=== PATIENT | male | born 1955 | race Caucasian/White ===

== ENCOUNTER 2016-11-30 18:08 | Emergency (ER) | payer BC, MEDICARE ==
--- NOTE | 2016-11-30 18:55 | ED ---
General Adult HPI - General Chief complaint: Urogenital Stated complaint: HEMATURIA Time Seen by Provider: 11/30/16 18:15 Source: patient, RN notes reviewed Mode of arrival: ambulatory Limitations: no limitations - History of Present Illness Initial comments: This is a 61-year-old male who presents to the emergency department stating that he had one episode of hematuria which started off as bright red blood ventricle down to pinkish tinged urine. Patient states he had no pain with that he's had no symptoms in the past with that he denies any abdominal pain flank pain or back pain. Patient denies any fever or chills. She says about 5 days ago he did fall backwards on the concrete and landed on his back. Patient states it hurt at the time but it resolved and he has had no problems since. Patient states there is no swelling or redness about the penis there is no pain with urination. And he denies any problems with his scrotum or testicles. Patient states he is a smoker. - Related Data Home Medications Medication Instructions Recorded Confirmed Aspirin 325 mg PO AC-SUPPER 11/24/15 11/30/16 HYDROcodone/APAP 10-325MG [[place] 1 tab PO Q6H PRN 11/24/15 11/30/16 10-325] Insulin NPL/Insulin Lispro 50 unit SQ BID 11/24/15 11/30/16 [humaLOG Mix 75-25 Kwikpen] Lisinopril [Zestril] 20 mg PO BID 11/24/15 11/30/16 Pramlintide Acetate [Symlin Pen 120 mcg SQ AC-SUPPER 11/24/15 11/30/16 120] Simvastatin [Zocor] 40 mg PO HS 11/24/15 11/30/16 Zolpidem [Ambien] 5 mg PO HS PRN 11/24/15 11/30/16 Tadalafil [Cialis] 5 mg PO DAILY PRN 11/30/16 11/30/16 Allergies Allergy/AdvReac Type Severity Reaction Status Date / Time blue dye Allergy Severe Rash/Hives Verified 11/30/16 19:25 naproxen sodium [From Aleve] Allergy Rash/Hives Verified 11/30/16 19:25 naloxegol [From Movantik] AdvReac Nausea & Verified 11/30/16 19:25 Vomiting Review of Systems ROS Statement: Those systems with pertinent positive or pertinent negative responses have been documented in the HPI. ROS Other: All systems not noted in ROS Statement are negative. Past Medical History Additional Past Medical History / Comment(s): TIA. KIDNEY STONE. ABD CRAMPS OCC R/T IBS, DIVERTICULITIS. POSS LT ABD HERNIA. History of Any Multi-Drug Resistant Organisms: None Reported Additional Past Surgical History / Comment(s): LEFT KNEE, ARTHROSCOPIC. SHUNT [id number] R/T PRESSURE IN SKULL. Past Psychological History: Anxiety Smoking Status: Current every day smoker Past Alcohol Use History: None Reported Additional Past Alcohol Use History / Comment(s): STARTED SMOKING AT AGE 15/ SMOKES 1PPD; PLANS TO TRY CHANTIX AFTER PROCEDURE. Past Drug Use History: None Reported General Exam - General Exam Comments Initial Comments: GENERAL: Patient is well-developed and well-nourished. Patient is nontoxic and well- hydrated and is in no acute distress. ENT: Neck is soft and supple. No significant lymphadenopathy is noted. Oropharynx is clear. Moist mucous membranes. EYES: The sclera were anicteric and conjunctiva were pink and moist. Extraocular movements were intact and pupils were equal round and reactive to light. Eyelids were unremarkable. PULMONARY: Unlabored respirations. Good breath sounds bilaterally. No audible rales rhonchi or wheezing was noted. CARDIOVASCULAR: There is a regular rate and rhythm without any murmurs gallops or rubs. ABDOMEN: Soft and nontender with normal bowel sounds. SKIN: Skin is clear with no lesions or rashes and otherwise unremarkable. NEUROLOGIC: Patient is alert and oriented x3. Cranial nerves II through XII are grossly intact. Motor and sensory are also intact. Normal speech, volume and content. Symmetrical smile. MUSCULOSKELETAL: Normal extremities with adequate strength and full range of motion. No lower extremity swelling or edema. No calf tenderness. Limitations: no limitations Course Vital Signs 11/30/16 11/30/16 18:13 19:48 Temperature 98.3 F Pulse Rate 110 H 99 Respiratory 20 18 Rate Blood Pressure 187/92 163/79 O2 Sat by Pulse 96 97 Oximetry Medical Decision Making - Medical Decision Making Ultrasound showed no renal masses identified no obvious masses in the bladder. - Lab Data Result diagrams: 11/30/16 18:55 11/30/16 18:55 Lab Results 11/30/16 11/30/16 11/30/16 Range/Units 18:55 18:55 18:55 WBC 12.3 H (3.8-10.6) k/uL RBC 5.62 (4.30-5.90) m/uL Hgb 17.9 H (13.0-17.5) gm/dL Hct 53.4 H (39.0-53.0) % MCV 94.9 (80.0-100.0) fL MCH 31.9 (25.0-35.0) pg MCHC 33.6 (31.0-37.0) g/dL RDW 12.9 (11.5-15.5) % Plt Count 251 (150-450) k/uL Neutrophils % 74 % Lymphocytes % 15 % Monocytes % 6 % Eosinophils % 2 % Basophils % 1 % Neutrophils # 9.0 H (1.3-7.7) k/uL Lymphocytes # 1.9 (1.0-4.8) k/uL Monocytes # 0.8 (0-1.0) k/uL Eosinophils # 0.3 (0-0.7) k/uL Basophils # 0.1 (0-0.2) k/uL PT 12.2 H (9.0-12.0) sec INR 1.2 (<1.1) APTT 25.9 (22.0-30.0) sec Sodium 142 (137-145) mmol/L Potassium 4.7 (3.5-5.1) mmol/L Chloride 105 (98-107) mmol/L Carbon Dioxide 26 (22-30) mmol/L Anion Gap 11 mmol/L BUN 19 (9-20) mg/dL Creatinine 0.95 (0.66-1.25) mg/dL Est GFR (MDRD) Af Amer >60 (>60 ml/min/1.73 sqM) Est GFR (MDRD) Non-Af >60 (>60 ml/min/1.73 sqM) Glucose 196 H (74-99) mg/dL Calcium 9.4 (8.4-10.2) mg/dL Total Bilirubin 0.8 (0.2-1.3) mg/dL AST 24 (17-59) U/L ALT 34 (21-72) U/L Alkaline Phosphatase 89 (38-126) U/L Total Protein 7.2 (6.3-8.2) g/dL Albumin 4.4 (3.5-5.0) g/dL Urine Color Urine Appearance (Clear) Urine RBC (0-5) /hpf Urine WBC (0-5) /hpf // Range/Units 19:07 WBC (3.8-10.6) k/uL RBC (4.30-5.90) m/uL Hgb (13.0-17.5) gm/dL Hct (39.0-53.0) % MCV (80.0-100.0) fL MCH (25.0-35.0) pg MCHC (31.0-37.0) g/dL RDW (11.5-15.5) % Plt Count (150-450) k/uL Neutrophils % % Lymphocytes % % Monocytes % % Eosinophils % % Basophils % % Neutrophils # (1.3-7.7) k/uL Lymphocytes # (1.0-4.8) k/uL Monocytes # (0-1.0) k/uL Eosinophils # (0-0.7) k/uL Basophils # (0-0.2) k/uL PT (9.0-12.0) sec INR (<1.1) APTT (22.0-30.0) sec Sodium (137-145) mmol/L Potassium (3.5-5.1) mmol/L Chloride (98-107) mmol/L Carbon Dioxide (22-30) mmol/L Anion Gap mmol/L BUN (9-20) mg/dL Creatinine (0.66-1.25) mg/dL Est GFR (MDRD) Af Amer (>60 ml/min/1.73 sqM) Est GFR (MDRD) Non-Af (>60 ml/min/1.73 sqM) Glucose (74-99) mg/dL Calcium (8.4-10.2) mg/dL Total Bilirubin (0.2-1.3) mg/dL AST (17-59) U/L ALT (21-72) U/L Alkaline Phosphatase (38-126) U/L Total Protein (6.3-8.2) g/dL Albumin (3.5-5.0) g/dL Urine Color Red Urine Appearance Bloody (Clear) Urine RBC >182 H (0-5) /hpf Urine WBC 80 H (0-5) /hpf Disposition Clinical Impression: Hematuria Disposition: HOME SELF-CARE Condition: Good Instructions: Hematuria (ED) Referrals: Dru Colby MD [Primary Care Provider] - 1-2 days Kem Beal MD [STAFF PHYSICIAN] - 1-2 days Time of Disposition: 21:43
[2016-11-30 19:14] LABS: Basophils # (A) 0.1 k/uL (0-0.2); Basophils % (A) 1 %; CHCM 33.9; Eosinophils # (A) 0.3 k/uL (0-0.7); Eosinophils % (A) 2 %; HCT 53.4 % (39.0-53.0); HGB 17.9 gm/dL (13.0-17.5); Luc # (Auto) 0.23; Luc % (Auto) 2; Lymphocytes # (A) 1.9 k/uL (1.0-4.8); Lymphocytes % (A) 15 %; MCH 31.9 pg (25.0-35.0); MCHC 33.6 g/dL (31.0-37.0); MCV 94.9 fL (80.0-100.0); Mean Platelet Volume 6.6; Monocytes # (A) 0.8 k/uL (0-1.0); Monocytes % (A) 6 %; Neutrophils % (A) 74 %; RBC 5.62 m/uL (4.30-5.90); RDW 12.9 % (11.5-15.5); WBC 12.3 k/uL (3.8-10.6); WBC (Perox) 12.01
[2016-11-30 19:16] LABS: ALT 34 U/L (21-72); AST 24 U/L (17-59); Alkaline Phosphatase 89 U/L (38-126); Anion Gap 11 mmol/L; Blood Urea Nitrogen 19 mg/dL (9-20); Calcium 9.4 mg/dL (8.4-10.2); Carbon Dioxide 26 mmol/L (22-30); Chloride 105 mmol/L (98-107); Glucose 196 mg/dL (74-99); Non-African American GFR(MDRD) >60 (>60 ml/min/1.73 sqM); Potassium 4.7 mmol/L (3.5-5.1); Sodium 142 mmol/L (137-145); Total Bilirubin 0.8 mg/dL (0.2-1.3); Total Protein 7.2 g/dL (6.3-8.2)
[2016-11-30 19:22] LABS: Particle Count 117385; RBC,Urine >182 /hpf (0-5); WBC,Urine 80 /hpf (0-5)
[2016-11-30 19:23] LABS: Appearance,Urine Bloody (Clear)
[2016-11-30 19:38] LABS: INR 1.2 (<1.1); Partial Thromboplastin Time 25.9 sec (22.0-30.0); Prothrombin Time 12.2 sec (9.0-12.0)
[2016-11-30 19:50] LABS: UA Billing (MACRO vs. MICRO) MICRO
[2016-11-30 19:51] VITALS: RESP 18
[2016-11-30] MEDS ORDERED: HYDROcodone/APAP 5-325MG 1 EACH TAB PO STA (20:50)
--- NOTE | 2016-11-30 21:23 | US ---
EXAMINATION TYPE: US renals and bladder DATE OF EXAM: 11/30/2016 9:11 PM COMPARISON: NONE CLINICAL HISTORY: Pain. Hematuria, bilateral flank pain, history of kidney stones EXAM MEASUREMENTS: Right Kidney: 10.6 x 5.7 x 4.8 cm Left Kidney: 11.0 x 6.0 x 4.9 cm Right Kidney: cystic areas noted, laterally = 4.4 x 4.1 x 4.6cm and upper pole = 1.5 x 1.2 x 1.5cm Left Kidney: no evidence of hydronephrosis Bladder: appears wnl Bilateral Jets seen: yes There is no evidence for hydronephrosis at this point in time. No nephrolithiasis is seen. No jamshid s are identified. The urinary bladder is anechoic. Bilateral ureteral jets are seen. IMPRESSION: No evidence of a solid renal mass. Right renal cortical cysts are noted. No evidence of renal obstruc tion.
[2016-11-30 22:11] VITALS: BP 168/99; PULSE 92; TEMP 98.7
== END 2016-11-30 22:11 | disposition home or self-care (01) ==
LOC: EC 18:08
DX: R31.9 Hematuria, unspecified (principal); Z87.442 Personal history of urinary calculi; Z86.73 Personal history of transient ischemic attack (TIA), and cerebral infarction without residual deficits; Z91.81 History of falling; F17.200 Nicotine dependence, unspecified, uncomplicated; Z79.899 Other long term (current) drug therapy; Z79.4 Long term (current) use of insulin; Z79.82 Long term (current) use of aspirin; Z88.8 Allergy status to other drugs, medicaments and biological substances; Z88.6 Allergy status to analgesic agent
CPT/HCPCS: 36415; 76770; 80053; 81001; 85025; 85610; 85730; 99284

== ENCOUNTER 2017-01-16 15:19 | Observation (INO) | payer BC, MEDICARE ==
[2017-01-16] MEDS ORDERED: ASPIRIN 81 MG CHEW PO STA (15:39)
[2017-01-16] MEDS ORDERED: NITROGLYCERIN OINT 1 INCH/GM PACKET TOPICAL STA (15:39)
--- NOTE | 2017-01-16 15:43 | ED ---
General Adult HPI - General Chief complaint: Chest Pain Stated complaint: Chest Pain Time Seen by Provider: 01/16/17 15:20 Source: patient, RN notes reviewed Mode of arrival: wheelchair Limitations: no limitations - History of Present Illness Initial comments: This is a 61-year-old male with a past medical history significant for diabetes hypertension high cholesterol and smokes. Patient states he has a father with heart disease. Patient comes in today because he's been experiencing intermittent chest pain for the last 5 days. Patient states he is also very short of breath and very fatigued over the last 5 days. Patient denies any recent fever chills or cough. Patient states that the coughing seems to increase the chest pain and pressing on it causes a little bit of the same chest pain. Patient denies any headache patient denies numbness weakness. Patient denies any abdominal pain patient denies nausea vomiting or diarrhea. - Related Data Home Medications Medication Instructions Recorded Confirmed Aspirin 325 mg PO AC-SUPPER 11/24/15 01/16/17 HYDROcodone/APAP 10-325MG [[place] 1 tab PO Q6H PRN 11/24/15 01/16/17 10-325] Insulin Lispro Protamin/Lispro 50 unit SQ BID 11/24/15 01/16/17 [humaLOG Mix 75-25 Kwikpen] Lisinopril [Zestril] 20 mg PO BID 11/24/15 01/16/17 Pramlintide Acetate [Symlin Pen 120 mcg SQ AC-SUPPER 11/24/15 01/16/17 120] Simvastatin [Zocor] 40 mg PO HS 11/24/15 01/16/17 Zolpidem [Ambien] 5 mg PO HS PRN 11/24/15 01/16/17 Allergies Allergy/AdvReac Type Severity Reaction Status Date / Time blue dye Allergy Severe Rash/Hives Verified 01/16/17 16:14 naproxen sodium [From Aleve] Allergy Rash/Hives Verified 01/16/17 16:14 naloxegol [From Movantik] AdvReac Nausea & Verified 01/16/17 16:14 Vomiting Review of Systems ROS Statement: Those systems with pertinent positive or pertinent negative responses have been documented in the HPI. ROS Other: All systems not noted in ROS Statement are negative. Past Medical History Past Medical History: CVA/TIA, Diabetes Mellitus Additional Past Medical History / Comment(s): TIA. KIDNEY STONE. ABD CRAMPS OCC R/T IBS, DIVERTICULITIS. POSS LT ABD HERNIA. History of Any Multi-Drug Resistant Organisms: None Reported Past Surgical History: Orthopedic Surgery Additional Past Surgical History / Comment(s): LEFT KNEE, ARTHROSCOPIC. SHUNT [id number] R/T PRESSURE IN SKULL. lt hand amputation Past Psychological History: Anxiety Smoking Status: Current every day smoker Past Alcohol Use History: None Reported Additional Past Alcohol Use History / Comment(s): STARTED SMOKING AT AGE 15/ SMOKES 1PPD; PLANS TO TRY CHANTIX AFTER PROCEDURE. Past Drug Use History: Marijuana General Exam - General Exam Comments Initial Comments: GENERAL: Patient is well-developed and well-nourished. Patient is nontoxic and well- hydrated and is in mild distress. ENT: Neck is soft and supple. No significant lymphadenopathy is noted. Oropharynx is clear. Moist mucous membranes. Neck has full range of motion without eliciting any pain. EYES: The sclera were anicteric and conjunctiva were pink and moist. Extraocular movements were intact and pupils were equal round and reactive to light. Eyelids were unremarkable. PULMONARY: Unlabored respirations. Good breath sounds bilaterally. No audible rales rhonchi or wheezing was noted. CARDIOVASCULAR: There is a regular rate and rhythm without any murmurs gallops or rubs. Patient has some reproducible chest pain in the left anterior chest wall but he states it's not exactly the same pain she has been experiencing. ABDOMEN: Soft and nontender with normal bowel sounds. No palpable organomegaly was noted. There is no palpable pulsatile mass. SKIN: Skin is clear with no lesions or rashes and otherwise unremarkable. NEUROLOGIC: Patient is alert and oriented x3. Cranial nerves II through XII are grossly intact. Motor and sensory are also intact. Normal speech, volume and content. Symmetrical smile. MUSCULOSKELETAL: Patient has an amputated left forearm. Normal extremities with adequate strength and full range of motion. No lower extremity swelling or edema. No calf tenderness. LYMPHATICS: No significant lymphadenopathy is noted PSYCHIATRIC: Normal psychiatric evaluation. Normal interpersonal interactions appears functionally intact in deals appropriately with others. No signs of depression. No signs of anxiety. Limitations: no limitations Course Vital Signs 01/16/17 01/16/17 01/16/17 15:21 15:39 16:27 Temperature 98.9 F Pulse Rate 100 98 93 Respiratory 20 18 8 L Rate Blood Pressure 197/97 201/100 150/82 O2 Sat by Pulse 96 97 93 L Oximetry Medical Decision Making - Medical Decision Making EKG shows normal sinus rhythm at 95 bpm LA interval 172 QRS is 80 QT interval 350 QTC is 439. Patient's EKG shows no ST segment elevation or depression or T- wave abdomen is noted. Chest x-ray shows no acute abnormality. Patient states the chest pain felt better with the nitroglycerin paste - Lab Data Result diagrams: 01/16/17 15:35 01/16/17 15:35 Lab Results 01/16/17 01/16/17 01/16/17 Range/Units 15:35 15:35 15:35 WBC 14.0 H (3.8-10.6) k/uL RBC 5.74 (4.30-5.90) m/uL Hgb 18.0 H (13.0-17.5) gm/dL Hct 54.4 H (39.0-53.0) % MCV 94.7 (80.0-100.0) fL MCH 31.4 (25.0-35.0) pg MCHC 33.2 (31.0-37.0) g/dL RDW 13.1 (11.5-15.5) % Plt Count 241 (150-450) k/uL Neutrophils % 78 % Lymphocytes % 14 % Monocytes % 5 % Eosinophils % 1 % Basophils % 1 % Neutrophils # 10.9 H (1.3-7.7) k/uL Lymphocytes # 1.9 (1.0-4.8) k/uL Monocytes # 0.7 (0-1.0) k/uL Eosinophils # 0.2 (0-0.7) k/uL Basophils # 0.1 (0-0.2) k/uL PT (9.0-12.0) sec INR (<1.1) APTT (22.0-30.0) sec Sodium 141 (137-145) mmol/L Potassium 4.6 (3.5-5.1) mmol/L Chloride 107 (98-107) mmol/L Carbon Dioxide 21 L (22-30) mmol/L Anion Gap 13 mmol/L BUN 16 (9-20) mg/dL Creatinine 0.90 (0.66-1.25) mg/dL Est GFR (MDRD) Af Amer >60 (>60 ml/min/1.73 sqM) Est GFR (MDRD) Non-Af >60 (>60 ml/min/1.73 sqM) Glucose 231 H (74-99) mg/dL Calcium 9.7 (8.4-10.2) mg/dL Magnesium 1.8 (1.6-2.3) mg/dL Total Bilirubin 1.0 (0.2-1.3) mg/dL AST 15 L (17-59) U/L ALT 32 (21-72) U/L Alkaline Phosphatase 92 (38-126) U/L Total Creatine Kinase 58 (55-170) U/L CK-MB (CK-2) 1.9 (0.0-2.4) ng/mL CK-MB (CK-2) Rel Index 3.3 Troponin I <0.012 (0.000-0.034) ng/mL Total Protein 7.0 (6.3-8.2) g/dL Albumin 4.4 (3.5-5.0) g/dL 01/16/17 Range/Units 15:35 WBC (3.8-10.6) k/uL RBC (4.30-5.90) m/uL Hgb (13.0-17.5) gm/dL Hct (39.0-53.0) % MCV (80.0-100.0) fL MCH (25.0-35.0) pg MCHC (31.0-37.0) g/dL RDW (11.5-15.5) % Plt Count (150-450) k/uL Neutrophils % % Lymphocytes % % Monocytes % % Eosinophils % % Basophils % % Neutrophils # (1.3-7.7) k/uL Lymphocytes # (1.0-4.8) k/uL Monocytes # (0-1.0) k/uL Eosinophils # (0-0.7) k/uL Basophils # (0-0.2) k/uL PT 13.2 H (9.0-12.0) sec INR 1.3 (<1.1) APTT 26.6 (22.0-30.0) sec Sodium (137-145) mmol/L Potassium (3.5-5.1) mmol/L Chloride (98-107) mmol/L Carbon Dioxide (22-30) mmol/L Anion Gap mmol/L BUN (9-20) mg/dL Creatinine (0.66-1.25) mg/dL Est GFR (MDRD) Af Amer (>60 ml/min/1.73 sqM) Est GFR (MDRD) Non-Af (>60 ml/min/1.73 sqM) Glucose (74-99) mg/dL Calcium (8.4-10.2) mg/dL Magnesium (1.6-2.3) mg/dL Total Bilirubin (0.2-1.3) mg/dL AST (17-59) U/L ALT (21-72) U/L Alkaline Phosphatase (38-126) U/L Total Creatine Kinase (55-170) U/L CK-MB (CK-2) (0.0-2.4) ng/mL CK-MB (CK-2) Rel Index Troponin I (0.000-0.034) ng/mL Total Protein (6.3-8.2) g/dL Albumin (3.5-5.0) g/dL Disposition Clinical Impression: Chest pain Disposition: ADMITTED IP TO THIS HOSP Referrals: Dru Colby MD [Primary Care Provider] - 1-2 days Time of Disposition: 16:44
[2017-01-16 15:59] LABS: Basophils # (A) 0.1 k/uL (0-0.2); Basophils % (A) 1 %; CH 31.5; CHCM 33.4; Eosinophils # (A) 0.2 k/uL (0-0.7); Eosinophils % (A) 1 %; HCT 54.4 % (39.0-53.0); HDW 2.34; Luc % (Auto) 1; Lymphocytes # (A) 1.9 k/uL (1.0-4.8); Lymphocytes % (A) 14 %; MCH 31.4 pg (25.0-35.0); MCHC 33.2 g/dL (31.0-37.0); MCV 94.7 fL (80.0-100.0); Mean Platelet Volume 6.9; Monocytes # (A) 0.7 k/uL (0-1.0); Monocytes % (A) 5 %; Neutrophils # (A) 10.9 k/uL (1.3-7.7); Neutrophils % (A) 78 %; RBC 5.74 m/uL (4.30-5.90); RDW 13.1 % (11.5-15.5); WBC (Perox) 13.02
--- NOTE | 2017-01-16 16:06 | XR ---
EXAMINATION TYPE: XR chest 2V DATE OF EXAM: 01/16/2017 COMPARISON: NONE INDICATION: Chest pain TECHNIQUE: Frontal and lateral views of the chest are obtained. FINDINGS: The heart size is normal. The pulmonary vasculature is normal. The lungs are clear. Catheter transverses the [id number]. EKG leads overlie the chest. Nonspecifi c bowel gas is within the abdomen. IMPRESSION: 1. No acute pulmonary process.
[2017-01-16 16:13] LABS: INR 1.3 (<1.1); Partial Thromboplastin Time 26.6 sec (22.0-30.0); Prothrombin Time 13.2 sec (9.0-12.0)
[2017-01-16 16:17] LABS: ALT 32 U/L (21-72); AST 15 U/L (17-59); Alkaline Phosphatase 92 U/L (38-126); Anion Gap 13 mmol/L; Blood Urea Nitrogen 16 mg/dL (9-20); Calcium 9.7 mg/dL (8.4-10.2); Carbon Dioxide 21 mmol/L (22-30); Chloride 107 mmol/L (98-107); Creatine Kinase 58 U/L (55-170); Glucose 231 mg/dL (74-99); Magnesium 1.8 mg/dL (1.6-2.3); Non-African American GFR(MDRD) >60 (>60 ml/min/1.73 sqM); Potassium 4.6 mmol/L (3.5-5.1); Sodium 141 mmol/L (137-145)
[2017-01-16 16:29] LABS: Creatine Kinase MB 1.9 ng/mL (0.0-2.4); Troponin I <0.012 ng/mL (0.000-0.034)
[2017-01-16] MEDS ORDERED: NITROGLYCERIN SL TABS 0.4 MG TAB SUBLINGUAL PRN (16:44)
[2017-01-16] MEDS ORDERED: ZOLPIDEM 5 MG TAB PO PRN (18:54)
[2017-01-16 20:11] VITALS: BMI 33.1
[2017-01-16 20:43] LABS: Glucose,Whole Blood 274 mg/dL (75-99)
[2017-01-16] MEDS ORDERED: ACETAMINOPHEN TAB 325 MG TAB PO PRN (20:58)
[2017-01-16] MEDS ORDERED: ATORVASTATIN 20 MG TAB PO SCH (21:00)
[2017-01-16] MEDS: LISINOPRIL 20 MG TAB PO SCH (21:02)
[2017-01-16] MEDS: INSULIN LISPRO (humaLOG) 300 UNIT/3 ML VIAL SQ SCH (21:03)
[2017-01-16 22:08] LABS: Creatine Kinase 55 U/L (55-170)
[2017-01-16 22:22] LABS: Creatine Kinase MB 1.3 ng/mL (0.0-2.4); Troponin I <0.012 ng/mL (0.000-0.034)
[2017-01-16] MEDS: HYDROcodone/APAP 10-325MG 1 EACH TAB PO PRN (22:44)
[2017-01-16 23:32] VITALS: RESP 18
[2017-01-17] MEDS: NITROGLYCERIN OINT 1 INCH/GM PACKET TOPICAL SCH ×3 (00:23→12:48)
[2017-01-17 05:17] LABS: Basophils # (A) 0.1 k/uL (0-0.2); Basophils % (A) 1 %; CH 31.4; CHCM 33.5; Eosinophils # (A) 0.4 k/uL (0-0.7); Eosinophils % (A) 3 %; HCT 53.2 % (39.0-53.0); HDW 2.33; HGB 17.7 gm/dL (13.0-17.5); Luc % (Auto) 2; Lymphocytes # (A) 2.6 k/uL (1.0-4.8); Lymphocytes % (A) 24 %; MCH 31.2 pg (25.0-35.0); MCHC 33.3 g/dL (31.0-37.0); MCV 93.9 fL (80.0-100.0); Mean Platelet Volume 6.8; Monocytes # (A) 0.7 k/uL (0-1.0); Monocytes % (A) 6 %; Neutrophils % (A) 64 %; RBC 5.66 m/uL (4.30-5.90); RDW 13.2 % (11.5-15.5); WBC 11.1 k/uL (3.8-10.6); WBC (Perox) 10.35
[2017-01-17 05:34] LABS: Anion Gap 9 mmol/L; Blood Urea Nitrogen 16 mg/dL (9-20); Calcium 9.3 mg/dL (8.4-10.2); Carbon Dioxide 22 mmol/L (22-30); Chloride 106 mmol/L (98-107); Cholesterol 123 mg/dL (<200); Glucose 227 mg/dL (74-99); HDL Cholesterol 40 mg/dL (40-60); Non-African American GFR(MDRD) >60 (>60 ml/min/1.73 sqM); Potassium 4.6 mmol/L (3.5-5.1); Sodium 137 mmol/L (137-145); Triglycerides 113 mg/dL (<150)
[2017-01-17 05:37] LABS: Creatine Kinase 67 U/L (55-170)
[2017-01-17 05:50] LABS: Creatine Kinase MB 1.5 ng/mL (0.0-2.4); Troponin I <0.012 ng/mL (0.000-0.034)
[2017-01-17 06:57] LABS: Glucose,Whole Blood 209 mg/dL (75-99)
[2017-01-17] MEDS ORDERED: DOBUTamine DRIP for NUC MED 500 MG in DEXTROSE/WATER 1 250ML.BAG IV ONE (08:00)
--- NOTE | 2017-01-17 08:47 | CONS ---
DATE OF CONSULTATION: CHIEF COMPLAINT: Chest pain. Basil is a 61-year-old gentleman with history of hypertension and insulin-requiring diabetes who presented to the hospital complaining of chest pain. He describes it as a precordial chest discomfort, unrelated to exertion and not associated with diaphoresis with no definite radiation to neck, arm or back. 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 At the time of my evaluation, he is pain free. EKG does not reveal ischemic changes and cardiac enzymes have been negative. Past medical history is significant for insulin-requiring diabetes, hypertension, dyslipidemia. Current medications include Ambien, Zocor, Zestril, insulin, [place] and aspirin. Allergic to BLUE DYE, ALEVE, and MOVANTIK. Family history is negative for premature coronary artery disease. Social history is significant for smoking. There is no history of EtOH abuse, or drug abuse. REVIEW OF SYSTEMS: HEENT: Unremarkable. CARDIAC: As described above. RESPIRATORY: Negative. GI: Negative. GENITOURINARY: Negative. ALLERGY/IMMUNOLOGY: Negative. SKIN: Negative. MUSCULOSKELETAL: Significant for joint pain. PSYCHOSOCIAL: Negative. ENDOCRINE: Negative. HEMATOLOGIC: Negative. DERMATOLOGIC: Negative. CONSTITUTIONAL: Negative. On exam, comfortable at rest. Blood pressure is elevated. There is no jugular venous distention. Carotid upstroke is normal. There is no bruit. Chest is clear to auscultation and percussion. Heart exam reveals first and second heart sounds, an S4 is heard. Abdomen is soft. Exam of the extremities did not reveal any edema. Peripheral pulses are felt. ASSESSMENT: 1. Chest pain, rule out coronary artery disease. 2. Uncontrolled hypertension. PLAN: I am going to perform a stress test on him and if the stress test is abnormal, consider cardiac catheterization. His blood pressure is poorly controlled. I am adding Norvasc 10 mg daily and hydralazine.
[2017-01-17] MEDS ORDERED: amLODIPine 10 MG TAB PO SCH (09:00)
[2017-01-17] MEDS ORDERED: hydrALAZINE HCL 50 MG TAB PO SCH (09:00)
[2017-01-17] MEDS ORDERED: ASPIRIN 325 MG TAB PO SCH (09:00)
[2017-01-17] MEDS: INSULIN LISPRO (humaLOG) 300 UNIT/3 ML VIAL SQ SCH ×2 (09:07→12:40)
[2017-01-17 09:23] LABS: Hemoglobin A1C 8.7 % (4.2-6.1)
--- NOTE | 2017-01-17 09:53 | ECHOF ---
Referral Reason:cp MEASUREMENTS -------- HEIGHT: 170.2 cm WEIGHT: 95.7 kg BP: 176/100 RVIDd: 3.3 cm (< 3.3) IVSd: 1.3 cm (0.6 - 1.1) LVIDd: 4.2 cm (3.9 - 5.3) LVPWd: 1.2 cm (0.6 - 1.1) IVSs: 1.9 cm LVIDs: 2.8 cm LVPWs: 1.5 cm LA Diam: 3.7 cm (2.7 - 3.8) LAESV Index (A-L): 16.15 ml/m Ao Diam: 3.2 cm (2.0 - 3.7) AV Cusp: 2.0 cm (1.5 - 2.6) MV EXCURSION: 12.495 mm (> 18.000) MV EF SLOPE: 66 mm/s (70 - 150) EPSS: 0.7 cm MV E Collins: 0.74 m/s MV DecT: 247 ms MV A Collins: 0.97 m/s MV E/A Ratio: 0.76 FINDINGS -------- Sinus rhythm. This was a technically good study. The left ventricular size is normal. There is mild concentric left ventricular hypertrophy. Overall left ventricular systolic function is normal with, an EF between 60 - 65 %. The right ventricle is mildly enlarged. Normal LA size by volume 22+/-6 ml/m2. The right atrium is normal in size. The aortic valve is trileaflet and appears structurally normal. Mild mitral annular calcification present. There is trace mitral regurgitation. The tricuspid valve appears structurally normal. There is no pulmonic regurgitation present. The aortic root size is normal. Normal inferior vena cava with normal inspiratory collapse consistent with estimated right atrial pressure of 5 mmHg. The pericardium is normal. CONCLUSIONS -------- 1. Sinus rhythm. 2. There is trace mitral regurgitation. 3. The tricuspid valve appears structurally normal. 4. There is no pulmonic regurgitation present. 5. The aortic root size is normal. 6. Normal inferior vena cava with normal inspiratory collapse consistent with estimated right atrial pressure of 5 mmHg. 7. The pericardium is normal. 8. This was a technically good study. 9. The left ventricular size is normal. 10. There is mild concentric left ventricular hypertrophy. 11. Overall left ventricular systolic function is normal with, an EF between 60 - 65 %. 12. The right ventricle is mildly enlarged. 13. Normal LA size by volume 22+/-6 ml/m2. 14. The aortic valve is trileaflet and appears structurally normal. 15. Mild mitral annular calcification present. SUPERVISOR [employer] MOTTLE: Yumiko Hopkins RDCS
[2017-01-17] MEDS: HYDROcodone/APAP 10-325MG 1 EACH TAB PO PRN (10:32)
[2017-01-17 12:06] VITALS: BP 150/75; PULSE 91; TEMP 98.4
[2017-01-17] MEDS ORDERED: ATROPINE SULFATE 0.1 MG/ML 10ML SYRINGE ONE (12:18)
[2017-01-17] MEDS ORDERED: METOPROLOL TARTRATE 5 MG/5 ML VIAL IVP ONE (12:18)
[2017-01-17 12:33] LABS: Glucose,Whole Blood 231 mg/dL (75-99)
[2017-01-17] MEDS: LISINOPRIL 20 MG TAB PO SCH (12:40)
--- NOTE | 2017-01-17 12:48 | ECHOS ---
DATE OF SERVICE: 01/17/2017 AGE: 61Y SEX: M HT: 67 WT: 211 lbs. Protocol Melvin: Others: Dobutamine Stress Echo Stage: Dur. of Exercise: *Heart Rate Blood Pressure *Rest: 96 Rest: 157/83 * *Max. Achieved: 137 Maximum BP: 185/73 85% PMHR: 134 100% PMHR: 158 *METS: INDICATION OF THE STUDY: Chest pain. MEDICATIONS: STRESS DATA: Pretesting physical examination showed a heart rate of 96, pressure is 157/83 mmHg. Baseline EKG showed sinus mechanism. Dobutamine infusion at a dose of 10 mcg/kg per minute was initiated and increased to 20 mcg/kg per minute. We have to give the patient 0.5 mg of atropine to enhance the heart rate. With dobutamine and atropine, the patient achieved a max heart rate of 137, which is about 87% of maximum predicted heart rate. Maximum blood pressure was 185/73 mmHg. Clinically, the patient did not have any symptoms of chest pain or discomfort and the EKG did not show any significant ST or T wave abnormalities consistent with ischemia. ECHOCARDIOGRAM IMAGES: On echocardiogram images from parasternal long axis view, parasternal short axis view, apical 4 chamber view and apical 2 chamber view were obtained as the baseline images, at low-dose dobutamine infusion, at peak heart rate, as well as on recovery and the echocardiogram images showed good augmentation in the left ventricular systolic function without any evidence of wall motion abnormalities consistent with ischemia. CONCLUSION: 1. Normal EKG in response to dobutamine. 2. Normal echocardiogram in response to dobutamine.
--- NOTE | 2017-01-17 22:08 | HP ---
H&P AND DISCHARGE SUMMARY DATE OF ADMISSION: Patient is a 61-year-old gentleman who came in with history of hypertension, diabetes mellitus, hypercholesterolemia and smokes. Came in with complaints of chest pain, musculoskeletal in nature, constant; had a recent fall; in the retrosternal area, reproducible, not associated with shortness of breath or lightheadedness. Patient was evaluated by Cardiology, who ruled out acute coronary syndromes, after which patient underwent stress test which was negative. Patient's chest pain is non-pleuritic in nature. Patient is being discharged today. [place] improves his pain. Patient was asked to take as-needed [place]. REVIEW OF SYSTEMS: CONSTITUTIONAL: No fever, no malaise, no fatigue. HEENT: No recent visual problems or hearing problems. Denied any sore throat. CARDIOVASCULAR: As described in HPI. PULMONARY: No shortness of breath, no cough, no hemoptysis. GASTROINTESTINAL: No diarrhea, no nausea, no vomiting, no abdominal pain. Normoactive bowel sounds. NEUROLOGICAL: No headaches, no weakness, no numbness. HEMATOLOGICAL: Denies any bleeding or petechiae. GENITOURINARY: Denies any burning micturition, frequency, or urgency. MUSCULOSKELETAL/RHEUMATOLOGICAL: Denies any joint pain, swelling, or any muscle pain. ENDOCRINE: Denies any polyuria or polydipsia. The rest of the 14 point review of systems is negative. Home medications include: 1. Aspirin. 2. Hydrocodone/acetaminophen. 3. Insulin 75/25. 4. Lisinopril. 5. Simvastatin. 6. Ambien. ALLERGIES: 1. BLUE DYE. 2. NAPROXEN. Past medical history is significant for: 1. CVA, TIA. 2. Diabetes mellitus. 3. Hyperlipidemia. 4. Hypertension. Patient does smoke. Denied any alcohol abuse or any drug abuse. Patient does use marijuana occasionally. FAMILY HISTORY: Denied any significant premature coronary artery disease history. PHYSICAL EXAMINATION: VITAL SIGNS: Temperature 98.4, pulse of 91, respiratory rate of 18. Blood pressure is 162/75. Saturating at 94% on room air. GENERAL: The patient is alert and oriented x3, not in any acute distress. Well developed, well nourished. HEENT: Pupils are round and equally reacting to light. EOMI. No scleral icterus. No conjunctival pallor. Normocephalic, atraumatic. No pharyngeal erythema. No thyromegaly. CARDIOVASCULAR: S1 and S2 present. No murmurs, rubs, or gallops. CHEST: Reproducible chest pain ( ) which has come down at this point in time. PULMONARY: Chest is clear to auscultation, no wheezing or crackles. ABDOMEN: Soft, nontender, nondistended, normoactive bowel sounds. No palpable organomegaly. MUSCULOSKELETAL: No joint swelling or deformity. EXTREMITIES: No cyanosis, clubbing, or pedal edema. NEUROLOGICAL: Gross neurological examination did not reveal any focal deficits. SKIN: No rashes. Patient is not on any antibiotics at this point of time. ASSESSMENT AND PLAN: 1. Chest pain; appears to be musculoskeletal. Rule out acute coronary artery syndromes. Patient's stress test is negative. Patient is being discharged today. 2. Leukocytosis; appeared to be reactive, without any signs or symptoms of infection. 3. Hyperlipidemia. 4. Hypertension. 5. Diabetes mellitus. Patient will continue his home medications for these above-mentioned chronic medical problems. Nicotine cessation counseling was provided. Patient will follow up with his primary care physician in 3 to 7 days. Activity as tolerated. Cardiac and diabetic ADA 1800-calorie diet. Hemoglobin A1c is 8.7, which is consistent with uncontrolled blood sugars. This dictation is both H&P and discharge summary.
== END 2017-01-17 15:40 | disposition home or self-care (01) ==
LOC: EC 15:19 → 3OBS 16:44
PROVIDERS: ADMIT Internal Medicine; ATTEND Internal Medicine
DX: R07.2 Precordial pain (principal); I10 Essential (primary) hypertension; E78.00 Pure hypercholesterolemia, unspecified; E11.9 Type 2 diabetes mellitus without complications; F41.9 Anxiety disorder, unspecified; F17.200 Nicotine dependence, unspecified, uncomplicated; Z79.82 Long term (current) use of aspirin; Z79.899 Other long term (current) drug therapy; Z79.4 Long term (current) use of insulin; Z88.8 Allergy status to other drugs, medicaments and biological substances; Z88.6 Allergy status to analgesic agent; Z91.041 Radiographic dye allergy status; Z86.73 Personal history of transient ischemic attack (TIA), and cerebral infarction without residual deficits; Z82.49 Family history of ischemic heart disease and other diseases of the circulatory system; Z87.442 Personal history of urinary calculi; Z89.112 Acquired absence of left hand; E78.5 Hyperlipidemia, unspecified; D72.829 Elevated white blood cell count, unspecified
CPT/HCPCS: 99285; 36415; 93005; 93017; 93306; 93350; 80061; 80053; 80048; 83036; 82550 ×2; 82553 ×2; 83735; 84484 ×2; 85025 ×2; 85610; 85730; 71020; G0378 ×2; J1250; J0461

== ENCOUNTER → 2017-02-14 | Outpatient (CLI) | payer BC, MEDICARE ==
[2017-02-14 11:04] LABS: Blood Urea Nitrogen 17 mg/dL (9-20); Non-African American GFR(MDRD) >60 (>60 ml/min/1.73 sqM)
--- NOTE | 2017-02-14 13:28 | CT ---
EXAMINATION TYPE: CT abdomen pelvis w con DATE OF EXAM: 02/14/2017 COMPARISON: 09/09/2015 HISTORY: 61-year-old male with abdominal pain and vomiting following fall 1 month ago TECHNIQUE: Contiguous axial scanning of the abdomen and pelvis following administration of 100 ml Omn ipaque 300 IV contrast. Delayed images through the kidneys and coronal/sagittal reconstructions perf ormed. CT DLP: 1738 mGycm Automated exposure control for dose reduction was used. FINDINGS: The heart is normal size without pericardial effusion. Some strandy posterior left basilar atelectasi s/scar. No pleural effusion. Tiny hiatal hernia. No focal liver lesion. Portal venous system is patent. No biliary ductal dilatation. Gallbladder, adrenal glands, spleen, and pancreas show no gross modality. 4.3 cm exophytic cyst lateral right kidney with adjacent smaller 1.4 cm cortical cyst. A few subcenti meter hypodensities within the left kidney are too small for accurate CT characterization but also li gypsy represent cysts. Symmetric excretion of contrast from both kidneys. Mild to moderate arthroscopic calcifications within the abdominal aorta. No dilated small bowel, free fluid, or free air. A LEARNING ADMINISTRATOR shunt catheter courses along the subcutaneous fat of the anterior right abdomen enters at the mi d abdominal level and is looped along the anterior aspect of the inferior right hepatic lobe. Some prominent peripancreatic lymph nodes in the upper abdomen measure up to 9 mm, not significantly changed from prior. Otherwise, no mesenteric or retroperitoneal lymphadenopathy. Normal appendix. There is moderate stool burden without pericolonic inflammatory change. Postsurgical changes of sigmoid resection and re-anastomosis. Patulous bilateral inguinal canals. Bladder within normal limits. Prostate gland is enlarged at 5.1 c m wide. No abnormal fluid collection in the pelvis or pelvic lymphadenopathy. Bones: Degenerative changes lower lumbar spine. No osseous destructive process. IMPRESSION: 1. RIGHT-SIDED LEARNING ADMINISTRATOR SHUNT CATHETER ENTERS THE MID ABDOMEN AND IS LOOPED UPWARD ALONG THE ANTERIOR ASPEC T OF THE INFERIOR RIGHT LIVER. 2. PRIOR MID SIGMOID RESECTION AND REANASTOMOSIS. MODERATE STOOL BURDEN; CORRELATE FOR CONSTIPATION. 3. PROSTATOMEGALY (5.1 CM WIDE).
== END | disposition home or self-care (01) ==
LOC: RADCTMAIN 10:15
PROVIDERS: ATTEND Family Medicine
DX: N40.0 Benign prostatic hyperplasia without lower urinary tract symptoms (principal); K59.00 Constipation, unspecified; Z88.6 Allergy status to analgesic agent; Z88.8 Allergy status to other drugs, medicaments and biological substances; Z98.2 Presence of cerebrospinal fluid drainage device
CPT/HCPCS: 82565; 84520; 74177; 36415; Q9967

== ENCOUNTER → 2017-05-10 | Outpatient (CLI) | payer BC, MEDICARE ==
--- NOTE | 2017-05-10 14:29 | XR ---
EXAMINATION TYPE: XR cervical spine limited DATE OF EXAM: 05/10/2017 COMPARISON: NONE HISTORY: Radiculopathy TECHNIQUE: Three-view cervical spine FINDINGS: Degenerative disc changes are present C5-6 C6-7. Vertebral body alignment is normal. Prever tebral space is normal. No suspicious compression deformities. Minimal spondylosis is in the anterior C5-C6 level. Posterior spinal lamellar line is intact. Some minimal calcification may be in the left carotid bifurcation. IMPRESSION: 1. No acute osseous abnormality. 2. Degenerative disc change C5-6 C6-7
== END | disposition home or self-care (01) ==
LOC: RADXRMAIN 10:01
PROVIDERS: ATTEND Family Medicine
DX: M50.122 Cervical disc disorder at C5-C6 level with radiculopathy (principal)
CPT/HCPCS: 72040

== ENCOUNTER → 2017-05-28 | Outpatient (CLI) | payer BC, MEDICARE ==
--- NOTE | 2017-05-28 12:30 | XR ---
EXAMINATION TYPE: XR chest 2V DATE OF EXAM: 05/28/2017 COMPARISON: 01/16/17 HISTORY: Shortness of breath TECHNIQUE: Frontal and lateral views of the chest are obtained. FINDINGS: Scattered senescent parenchymal changes noted. Hyperinflation compatible with COPD. No evidence for infiltrate. No evidence for atelectasis. Heart size is stable. Mediastinal structures are stable and grossly unremarkable. No evidence for hilar prominence. Degenerative changes dorsal spine. IMPRESSION: 1. No evidence for acute pulmonary disease.
--- NOTE | 2017-05-28 12:31 | XR ---
EXAMINATION TYPE: XR thoracic spine 2V DATE OF EXAM: 05/28/2017 CLINICAL HISTORY: pain TECHNIQUE: Frontal, lateral, and swimmer's view of thoracic spine are obtained. COMPARISON: None. FINDINGS: Thoracic spine show satisfactory alignment without evidence of acute fracture or dislocatio n. Vertebral body heights are preserved. Disc spaces are well preserved. Visualized ribs are unrem arkable. FIREBRICK AND REFRACTORY TILE REPAIRER shunt noted. IMPRESSION: No acute fracture or dislocation is seen in the thoracic spine. ICD 10 NO FRACTURE, INIT IAL EVALUATION
== END | disposition home or self-care (01) ==
LOC: RADXRMAIN 12:12
PROVIDERS: ATTEND Family Medicine
DX: M54.6 Pain in thoracic spine (principal); J44.1 Chronic obstructive pulmonary disease with (acute) exacerbation
CPT/HCPCS: 71020; 72070

== ENCOUNTER 2017-06-05 10:30 | Emergency (ER) | payer BC, MEDICARE ==
[2017-06-05 11:05] LABS: Basophils # (A) 0.1 k/uL (0-0.2); Basophils % (A) 1 %; CH 32.5; CHCM 33.6; Eosinophils # (A) 0.2 k/uL (0-0.7); Eosinophils % (A) 2 %; HCT 54.3 % (39.0-53.0); HDW 2.42; HGB 17.2 gm/dL (13.0-17.5); Luc # (Auto) 0.14; Luc % (Auto) 1; Lymphocytes # (A) 1.6 k/uL (1.0-4.8); Lymphocytes % (A) 14 %; MCH 30.8 pg (25.0-35.0); MCHC 31.7 g/dL (31.0-37.0); MCV 97.2 fL (80.0-100.0); Mean Platelet Volume 7.3; Monocytes # (A) 0.6 k/uL (0-1.0); Monocytes % (A) 5 %; Neutrophils # (A) 8.6 k/uL (1.3-7.7); Neutrophils % (A) 76 %; RBC 5.58 m/uL (4.30-5.90); RDW 14.6 % (11.5-15.5); WBC 11.3 k/uL (3.8-10.6); WBC (Perox) 10.81
--- NOTE | 2017-06-05 11:13 | XR ---
EXAMINATION TYPE: XR chest 2V DATE OF EXAM: 06/05/2017 COMPARISON: 05/28/2017 HISTORY: Chest pain TECHNIQUE: Frontal and lateral views of the chest are obtained. FINDINGS: There is no focal air space opacity, pleural effusion, or pneumothorax seen. Pulmonary hyp erinflation and flattening of the diaphragms compatible with underlying COPD is noted. Right sided ve ntricular peritoneal shunt is partially visualized without discontinuity or calcifications. The card iac silhouette size is within normal limits. Degenerative changes of the thoracic spine are present. Pleural-parenchymal thickening is seen along the right lung apex. IMPRESSION: 1. No acute cardiopulmonary process. 2. Radiographic sequela of COPD.
[2017-06-05 11:16] LABS: ALT 44 U/L (21-72); AST 28 U/L (17-59); Alkaline Phosphatase 85 U/L (38-126); Anion Gap 12 mmol/L; Blood Urea Nitrogen 16 mg/dL (9-20); Calcium 9.3 mg/dL (8.4-10.2); Carbon Dioxide 22 mmol/L (22-30); Chloride 108 mmol/L (98-107); Glucose 147 mg/dL (74-99); Magnesium 1.9 mg/dL (1.6-2.3); Non-African American GFR(MDRD) >60 (>60 ml/min/1.73 sqM); Potassium 4.9 mmol/L (3.5-5.1); Sodium 142 mmol/L (137-145); Total Bilirubin 0.8 mg/dL (0.2-1.3); Total Protein 7.3 g/dL (6.3-8.2)
[2017-06-05 11:23] LABS: INR 1.2 (<1.2); Partial Thromboplastin Time 25.5 sec (22.0-30.0); Prothrombin Time 12.1 sec (9.0-12.0)
[2017-06-05] MEDS ORDERED: RX INFO: IV CONTRAST WAS GIVEN 1 EACH MISC MISCELLANE PRN (11:24)
[2017-06-05 11:28] LABS: Creatine Kinase 51 U/L (55-170)
--- NOTE | 2017-06-05 11:28 | ED ---
General Adult HPI - General Chief complaint: Chest Pain Stated complaint: CHEST PAIN Time Seen by Provider: 06/05/17 10:37 Source: patient, RN notes reviewed, old records reviewed Mode of arrival: wheelchair Limitations: no limitations - History of Present Illness Initial comments: This is a 61-year-old male the ER for evaluation of chest pain. Patient has back and chest pain. Patient states he also has history of high blood pressure , history of CVA and diabetes.. And has never had similar pain before. She denies history of heart disease. Patient states she had this pain starting this morning episodic of progressively worsening. Patient went to his family doctor's office and was sent to ER for evaluation. Patient is mildly nauseous but has had no vomiting. Denies abdominal pain. Denies any history of alcohol - Related Data Home Medications Medication Instructions Recorded Confirmed Insulin Lispro Protamin/Lispro 50 unit SQ BID 11/24/15 06/05/17 [humaLOG Mix 75-25 Kwikpen] Lisinopril [Zestril] 20 mg PO BID 11/24/15 06/05/17 Pramlintide Acetate [Symlin Pen 120 mcg SQ AC-SUPPER 11/24/15 06/05/17 120] Simvastatin [Zocor] 40 mg PO HS 11/24/15 06/05/17 ALPRAZolam [Xanax] 1 mg PO HS@2100 06/05/17 06/05/17 Aspirin/Acetaminophen/Caffeine 2 tab PO BID 06/05/17 06/05/17 [Excedrin Extra Strength Caplet] Metoprolol Succinate (ER) [Toprol 100 mg PO HS 06/05/17 06/05/17 Xl] Allergies Allergy/AdvReac Type Severity Reaction Status Date / Time blue dye Allergy Severe Rash/Hives Verified 06/05/17 11:17 naproxen sodium [From Aleve] Allergy Rash/Hives Verified 06/05/17 11:17 naloxegol [From Movantik] AdvReac Nausea & Verified 06/05/17 11:17 Vomiting Review of Systems ROS Statement: Those systems with pertinent positive or pertinent negative responses have been documented in the HPI. ROS Other: All systems not noted in ROS Statement are negative. Past Medical History Past Medical History: CVA/TIA, Diabetes Mellitus, Hearing Disorder / Deafness Additional Past Medical History / Comment(s): TIA. KIDNEY STONE. ABD CRAMPS OCC R/T IBS, DIVERTICULITIS. POSS LT ABD HERNIA. History of Any Multi-Drug Resistant Organisms: None Reported Past Surgical History: Orthopedic Surgery Additional Past Surgical History / Comment(s): LEFT KNEE, ARTHROSCOPIC. SHUNT [id number] R/T PRESSURE IN SKULL. lt hand amputation Past Anesthesia/Blood Transfusion Reactions: No Reported Reaction Past Psychological History: Anxiety, Depression Smoking Status: Current every day smoker Past Alcohol Use History: None Reported Past Drug Use History: Marijuana General Exam Limitations: no limitations General appearance: anxious Head exam: Present: atraumatic, normocephalic, normal inspection Eye exam: Present: normal appearance, PERRL, EOMI. Absent: scleral icterus, conjunctival injection, periorbital swelling ENT exam: Present: normal exam, mucous membranes moist Neck exam: Present: normal inspection. Absent: tenderness, meningismus, lymphadenopathy Respiratory exam: Present: normal lung sounds bilaterally. Absent: respiratory distress, wheezes, rales, rhonchi, stridor Cardiovascular Exam: Present: regular rate, normal rhythm, normal heart sounds. Absent: systolic murmur, diastolic murmur, rubs, gallop, clicks GI/Abdominal exam: Present: soft, normal bowel sounds. Absent: distended, tenderness, guarding, rebound, rigid Extremities exam: Present: normal inspection, full ROM, normal capillary refill. Absent: tenderness, pedal edema, joint swelling, calf tenderness Back exam: Present: normal inspection Neurological exam: Present: alert, oriented X3, CN II-XII intact Psychiatric exam: Present: normal affect, normal mood Skin exam: Present: warm, dry, intact, normal color. Absent: rash Course Vital Signs 06/05/17 06/05/17 10:33 12:22 Temperature 99.9 F H 98.4 F Pulse Rate 78 68 Respiratory 16 16 Rate Blood Pressure 125/102 212/100 O2 Sat by Pulse 96 98 Oximetry - Reevaluation(s) Reevaluation #1: 06/05/17 13:05 Patient does have elevated blood pressure which is improved here in the emergency room with blood pressure control EKG Findings - EKG Comments: EKG Findings:: EKG shows normal sinus rhythm rate of 76, MN 190, QRS 72, QTC 411 Medical Decision Making - Medical Decision Making 61 mallei are for evaluation. Patient's SDF reverted chest pain doctor's office , patient is elevated blood pressure without ER stay which is improved prior to discharge. Patient's CT negative for PE or or dissection. EKG and troponin are negative. Patient states he would like to be discharged home - Lab Data Result diagrams: 06/05/17 10:50 06/05/17 10:50 Lab Results 06/05/17 06/05/17 06/05/17 Range/Units 10:50 10:50 10:50 WBC 11.3 H (3.8-10.6) k/uL RBC 5.58 (4.30-5.90) m/uL Hgb 17.2 (13.0-17.5) gm/dL Hct 54.3 H (39.0-53.0) % MCV 97.2 (80.0-100.0) fL MCH 30.8 (25.0-35.0) pg MCHC 31.7 (31.0-37.0) g/dL RDW 14.6 (11.5-15.5) % Plt Count 225 (150-450) k/uL Neutrophils % 76 % Lymphocytes % 14 % Monocytes % 5 % Eosinophils % 2 % Basophils % 1 % Neutrophils # 8.6 H (1.3-7.7) k/uL Lymphocytes # 1.6 (1.0-4.8) k/uL Monocytes # 0.6 (0-1.0) k/uL Eosinophils # 0.2 (0-0.7) k/uL Basophils # 0.1 (0-0.2) k/uL PT (9.0-12.0) sec INR (<1.2) APTT (22.0-30.0) sec D-Dimer (<0.60) mg/L FEU Sodium 142 (137-145) mmol/L Potassium 4.9 (3.5-5.1) mmol/L Chloride 108 H (98-107) mmol/L Carbon Dioxide 22 (22-30) mmol/L Anion Gap 12 mmol/L BUN 16 (9-20) mg/dL Creatinine 0.96 (0.66-1.25) mg/dL Est GFR (MDRD) Af Amer >60 (>60 ml/min/1.73 sqM) Est GFR (MDRD) Non-Af >60 (>60 ml/min/1.73 sqM) Glucose 147 H (74-99) mg/dL Calcium 9.3 (8.4-10.2) mg/dL Magnesium 1.9 (1.6-2.3) mg/dL Total Bilirubin 0.8 (0.2-1.3) mg/dL AST 28 (17-59) U/L ALT 44 (21-72) U/L Alkaline Phosphatase 85 (38-126) U/L Total Creatine Kinase 51 L (55-170) U/L CK-MB (CK-2) 1.6 (0.0-2.4) ng/mL CK-MB (CK-2) Rel Index 3.1 Troponin I <0.012 (0.000-0.034) ng/mL NT-Pro-B Natriuret Pep pg/mL Total Protein 7.3 (6.3-8.2) g/dL Albumin 4.4 (3.5-5.0) g/dL Lipase 407 H (23-300) U/L 06/05/17 06/05/17 06/05/17 Range/Units 10:50 10:50 10:50 WBC (3.8-10.6) k/uL RBC (4.30-5.90) m/uL Hgb (13.0-17.5) gm/dL Hct (39.0-53.0) % MCV (80.0-100.0) fL MCH (25.0-35.0) pg MCHC (31.0-37.0) g/dL RDW (11.5-15.5) % Plt Count (150-450) k/uL Neutrophils % % Lymphocytes % % Monocytes % % Eosinophils % % Basophils % % Neutrophils # (1.3-7.7) k/uL Lymphocytes # (1.0-4.8) k/uL Monocytes # (0-1.0) k/uL Eosinophils # (0-0.7) k/uL Basophils # (0-0.2) k/uL PT 12.1 H (9.0-12.0) sec INR 1.2 H (<1.2) APTT 25.5 (22.0-30.0) sec D-Dimer 0.34 (<0.60) mg/L FEU Sodium (137-145) mmol/L Potassium (3.5-5.1) mmol/L Chloride (98-107) mmol/L Carbon Dioxide (22-30) mmol/L Anion Gap mmol/L BUN (9-20) mg/dL Creatinine (0.66-1.25) mg/dL Est GFR (MDRD) Af Amer (>60 ml/min/1.73 sqM) Est GFR (MDRD) Non-Af (>60 ml/min/1.73 sqM) Glucose (74-99) mg/dL Calcium (8.4-10.2) mg/dL Magnesium (1.6-2.3) mg/dL Total Bilirubin (0.2-1.3) mg/dL AST (17-59) U/L ALT (21-72) U/L Alkaline Phosphatase (38-126) U/L Total Creatine Kinase (55-170) U/L CK-MB (CK-2) (0.0-2.4) ng/mL CK-MB (CK-2) Rel Index Troponin I (0.000-0.034) ng/mL NT-Pro-B Natriuret Pep 283 pg/mL Total Protein (6.3-8.2) g/dL Albumin (3.5-5.0) g/dL Lipase (23-300) U/L - Radiology Data Radiology results: report reviewed (Chest x-ray and CTA chest are negative for acute disease), image reviewed Disposition Clinical Impression: Chest pain, Hypertension Disposition: HOME SELF-CARE Condition: Good Instructions: Chest Pain (ED) Referrals: Dru Colby MD [Primary Care Provider] - 1-2 days
[2017-06-05 11:41] LABS: Creatine Kinase MB 1.6 ng/mL (0.0-2.4); Troponin I <0.012 ng/mL (0.000-0.034)
--- NOTE | 2017-06-05 12:35 | CT ---
CT CHEST FOR PULMONARY EMBOLISM. EXAMINATION TYPE: CT angio chest DATE OF EXAM: 06/05/2017 INDICATION: Chest pain, PE CT DLP: 397.30 mGycm, Automated exposure control for dose reduction was used. CONTRAST: Patient injected with 100 ml mL of Omnipaque 350. COMPARISON: NONE TECHNIQUE: CT of the chest is performed on a spiral scan at 2 mm thick sections. Study is performed with intravenous contrast timed for evaluation for pulmonary embolism. This will limit additional po rtions of the evaluation. 3-D MIP images reconstructed by the technologist are reviewed on the compu ter in the coronal and sagittal planes. FINDINGS: No persistent filling defects are evident to suggest an acute pulmonary embolism. Couple small shotty lymph nodes are present. Largest in the lateral aortopulmonic window is 0.8 cm. A 0.9 cm pretracheal lymph node is present The ascending aorta diameter at the level of the main pulm onary artery is 3.4 cm. The main pulmonary artery diameter at the bifurcation is 2.7 cm. Emphysematous changes are evident through the lung silva. No discrete masses or infiltrates are evid ent. Some minimal compressive atelectasis may be at the left lung base. Limited CT section through the upper abdomen are unremarkable. IMPRESSIONS: 1. No acute pulmonary embolism.
[2017-06-05] MEDS ORDERED: LABETALOL 5 MG/ML VIAL MDV IVP STA (12:49)
[2017-06-05 13:44] VITALS: BP 163/84; PULSE 78; RESP 20; TEMP 98
== END 2017-06-05 13:44 | disposition home or self-care (01) ==
LOC: EC 10:30
DX: R07.9 Chest pain, unspecified (principal); I10 Essential (primary) hypertension; E11.9 Type 2 diabetes mellitus without complications; F32.9 Major depressive disorder, single episode, unspecified; F41.9 Anxiety disorder, unspecified; F17.200 Nicotine dependence, unspecified, uncomplicated; Z86.73 Personal history of transient ischemic attack (TIA), and cerebral infarction without residual deficits; Z79.4 Long term (current) use of insulin; Z79.82 Long term (current) use of aspirin; Z79.899 Other long term (current) drug therapy; Z91.048 Other nonmedicinal substance allergy status; Z88.6 Allergy status to analgesic agent; Z88.8 Allergy status to other drugs, medicaments and biological substances
CPT/HCPCS: 99285 ×2; 96374 ×2; 36415; 93005; 85379; 83880; 80053; 82550; 82553; 83690; 83735; 84484; 85025; 85610; 85730; 71020; 71275; Q9967

== ENCOUNTER → 2017-06-07 | Outpatient (CLI) | payer BC, MEDICARE ==
--- NOTE | 2017-06-07 19:45 | MR ---
EXAMINATION TYPE: MR cervical spine wo/w con DATE OF EXAM: 06/07/2017 COMPARISON: NONE HISTORY: Neck Pain, getting worse, no trauma or surgery TECHNIQUE: Multiplanar, multisequence images of the cervical spine were acquired utilizing 10 mL intravenous Sergio avist gadolinium contrast. Diffusion weighted imaging was performed. C2-C3: No disc herniation or canal stenosis. No foraminal encroachment. C3-C4: Facet arthropathy and uncovertebral joint hypertrophy. Moderate bilateral foraminal encroachme nt. No Canal stenosis. C4-C5: Facet arthropathy and right-sided uncovertebral joint hypertrophy with moderate right-sided fo raminal encroachment. No canal stenosis or disc herniation. C5-C6: Moderate to severe degenerative disc disease. There is broad-based disc protrusion with uncove rtebral joint hypertrophy with an severe bilateral foraminal encroachment and mild to moderate canal stenosis. Encroachment upon the anterior margin the spinal cord. C6-C7: Severe degenerative disc disease due to broad-based central disc bulging capped by spur with u ncovertebral joint hypertrophy. There is severe left foraminal encroachment and moderate to severe ri ght foraminal encroachment and evidence of mild to moderate canal stenosis. C7-T1: No evidence for degenerative disc disease. No disc bulge/herniation or protrusion. No Canal stenosis. Foramina are patent bilaterally. Cervical segments are intact. There is normal alignment. Cervical spinal cord is of normal signal. Craniovertebral junction relationships are within normal limits. There is imaging evidence of previ ous infarct involving the cerebellum which is only partially included on the exam. IMPRESSION: 1. Multilevel degenerative disc disease and cervical spondylosis with multilevel foraminal encroachme nt as discussed above. Canal stenosis at C5-C6 and C6-C7 due to hypertrophic changes and disc protrus ion. Correlate clinically.
== END | disposition home or self-care (01) ==
LOC: RADMRIMAIN 14:55
PROVIDERS: ATTEND Family Medicine
DX: M48.02 Spinal stenosis, cervical region (principal); M50.123 Cervical disc disorder at C6-C7 level with radiculopathy; M47.22 Other spondylosis with radiculopathy, cervical region; M53.82 Other specified dorsopathies, cervical region
CPT/HCPCS: 72156; A9581

== ENCOUNTER → 2017-09-05 | Outpatient (CLI) | payer BC, MEDICARE | END | disposition home or self-care (01) | LOC: LABPAT 08:46 | PROVIDERS: ATTEND Orthopaedic Surgery Orthopaedic Surgery of the Spine | DX: Z01.812 Encounter for preprocedural laboratory examination (principal) | CPT/HCPCS: 86850; 86900; 86901 ==

== ENCOUNTER 2017-09-11 10:20 | Day surgery (SDC) | payer BC, MEDICARE ==
[2017-09-04 10:06] VITALS: BMI 31.9
[~2017-09-11 10:20] MED LIST: BACITRACIN 50,000 UNIT, POLYMYXIN B 500,000 UNIT in SODIUM CHLORIDE 0.9% IRRIGATIO 1,00... IRRIGATION ONE; ceFAZolin IN SWFI 2 GM/20 ML SYRINGE IVP ONE
[2017-09-11 11:12] VITALS: RESP 16
[2017-09-11] MEDS ORDERED: LIDOCAINE 1% 20 ML VIAL (10MG/ML) FOR IV START INTRADERMA ONE (11:12)
[2017-09-11] MEDS: LACTATED RINGERS 1,000 ML IV SCH ×2 (11:12→21:30)
[2017-09-11] MEDS ORDERED: ONDANSETRON 4 MG/2 ML VIAL IVP ONE (11:13)
[2017-09-11 11:14] LABS: Glucose,Whole Blood 153 mg/dL (75-99)
[2017-09-11] MEDS ORDERED: MIDAZOLAM 2 MG/2 ML VIAL IV ONE (12:40)
[2017-09-11] MEDS ORDERED: DEXAMETHASONE SOD PHOS (MDV) 100 MG/10 ML VIAL ONE (13:16)
[2017-09-11] MEDS ORDERED: GLYCOPYRROLATE 0.2 MG/ML 2 ML VIAL ONE (13:16)
[2017-09-11] MEDS ORDERED: MIDAZOLAM 2 MG/2 ML VIAL ONE (13:16)
[2017-09-11] MEDS ORDERED: PROPOFOL 10 MG/ML 20 ML VIAL IV ONE (13:16)
[2017-09-11] MEDS ORDERED: ROCURONIUM BROMIDE 10 MG/ML 10 ML VIAL IV ONE (13:16)
[2017-09-11] MEDS ORDERED: METOPROLOL TARTRATE 5 MG/5 ML VIAL IVP ONE (13:16)
[2017-09-11] MEDS ORDERED: LIDOCAINE 1% INJ 10MG/ML (20 ML MDV) ONE (13:16)
[2017-09-11] MEDS ORDERED: NEOSTIGMINE 1 MG/ML 10 ML VIAL ONE (13:16)
[2017-09-11] MEDS ORDERED: SUCCINYLCHOLINE CHLORIDE 100 MG/5 ML SYR IV ONE (13:16)
[2017-09-11] MEDS ORDERED: HYDROmorphone (PF) 1 MG/ML ONE (13:16)
[2017-09-11] MEDS ORDERED: LIDOCAINE 0.5% (PF) 5 MG/ML (50 ML SDV) SQ ONE ×2 (13:43)
[2017-09-11] MEDS ORDERED: GELATIN SPONGE,ABSORB (LARGE) 1 EACH SPONGE MISCELLANE ONE (13:44)
[2017-09-11] MEDS ORDERED: THROMBIN (BOVINE) 5,000 UNIT VIAL TOPICAL ONE (13:45)
[2017-09-11] MEDS ORDERED: LACTATED RINGERS 1,000 ML IV ONE (14:03)
[2017-09-11] MEDS ORDERED: DIAZEPAM 5 MG TAB PO PRN (15:23)
[2017-09-11] MEDS ORDERED: MAGNESIUM HYDROXIDE 2,400 MG/10 ML CUP PO PRN (15:23)
[2017-09-11] MEDS ORDERED: BENZOCAINE/MENTHOL LOZENG 1 EACH LOZENGE MUCOUS MEM PRN (15:23)
[2017-09-11] MEDS ORDERED: ONDANSETRON 4 MG/2 ML VIAL IVP PRN (15:23)
[2017-09-11] MEDS ORDERED: HYDROmorphone 0.5 MG/0.5 ML SYRINGE IVP PRN (15:23)
[2017-09-11] MEDS ORDERED: traMADol 50 MG TAB PO PRN (15:24)
--- NOTE | 2017-09-11 15:31 | P.OP ---
Date of Procedure: 09/11/17 Preoperative Diagnosis: Herniated nucleus pulposis C5 6 C6 7, cervical stenosis C5 6 C6 7, neck pain with upper extremity radiculopathy Postoperative Diagnosis: Same Anesthesia: GETA Pathology: none sent Condition: stable Disposition: PACU Description of Procedure: BRIEF OPERATIVE NOTE Preoperative Diagnosis: Herniated nucleus pulposis C5 6 C6 7, cervical stenosis C5 6 C6 7, neck pain with upper extremity radiculopathy Postoperative Diagnosis: Same Procedure: Anterior cervical decompression with discectomy and fusion C5 6 C6 7 Placement of interbody graft C5 6 C6 7 Application of anterior cervical plate C5 6 and 7 Surgeon: Dr. Corrales [employer] Supervisor: Ananth PHAN who is present throughout the entire the case persistence during positioning, dissection, exposure, visualization, and all crucial elements of the case as well as closure. Anesthesia: General anesthesia per Dr. Peters Estimated blood loss: Approximately 50 mL Complications: None apparent Components implanted: K2) [place] anterior cervical plate system with the Vikos allograft bone graft and 1 mL of DBX bone putty Disposition: To recovery room in good stable condition. OPERATIVE INDICATIONS The patient has had long-standing issues in their neck and upper extremities. He was found to have significant disc herniation with stenosis at C5 6 and C6 7 which caused a well with his neck and upper extremity symptoms. The patient has been through conservative treatment. He is not having any prolonged benefit despite aggressive conservative treatment We discussed various treatment options including surgery, and the patient wishes to proceed with surgery We discussed the risk, patient's alternatives and benefits of surgery including but not limited to, risk of bleeding risk of infection, risk of need for further surgery, risk of decreased, loss of motion, muscle function, malunion nonunion, hardware failure, nerve damage, paralysis, heart attack, and . OPERATIVE SUMMARY After discussing all the risks, patient alternatives and benefits at length, the patient elected to proceed with surgical intervention, signed informed consent, and presented for their procedure. The patient was seen and examined in the preoperative holding area and the surgical site was marked. The patient was given antibiotics and brought to the operating room. The patient was positioned on the operating room table in a supine position being careful to pad any bony prominences and pressure points. The patient was sedated and intubated by anesthesia in standard fashion. Once the airway and C- spine were stabilized the patient's arms were padded and tucked at her side, with her shoulders gently taped. The head was placed in a donut pad with the neck in good neutral alignment and position. We were careful to maintain the patient's cervical spine and good neutral alignment and position throughout. The patient was prepped and draped in a normal standard fashion. An appropriate timeout and keystone protocol performed. We were able to proceed with the surgery. The local wound area was infiltrated with local anesthetic. An incision was made transversely approximately 2-1/2 cm over the appropriate levels at C6. Dissection was taken down subcutaneously to the level of the platysma which was split in line with its fibers. Dissection was taken with a carotid approach, with the trachea and esophagus medial and the carotid sheath laterally. We dissected down to the anterior surface of the vertebral bodies of C5 6 and 7. The patient does have a LEARNING AND DEVELOPMENT ASSISTANT shunt at the right side of his neck which we saw on x-ray but was not visualized during the time of surgery. I was not able palpated and I chose not to explore for the shunt itself. Intraoperative x-ray was taken which showed a marker at the appropriate level of C5 6. With the appropriate level positively confirmed, we were able to proceed with discectomy at the appropriate levels starting at C5 6 and then moving to C6 7. All of the operative levels were exposed appropriately. The patient had all their twitches back, and there was no evidence of recurrent laryngeal issue. The wound was copiously irrigated and suctioned dry as had been done periodically throughout the case. At the appropriate level/levels, I established an annulotomy with an 11 blade scalpel. A discectomy was performed with a combination of pituitary rongeurs, curettes, a high-speed bur, and Kerrison rongeurs. The posterior longitudinal ligament was taken down as were any posterior osteophytes. Note was made of large posterior osteophytes which causing significant stenosis as well. These posterior osteophytes were taken down during the decompression. This gave good central and bilateral foraminal decompression. There is no evidence of any dural tear or leak. The endplates were prepared with a high-speed bur. With the endplates in good parallel position, I was able to size for the appropriate size interbody graft. The wound was irrigated and suctioned dry the graft was prepared and malleted into position. It had good alignment and position with the anterior surface flush with the anterior surface of the vertebral bodies. This was done similarly the appropriate levels first at C5 6 and then at C6 7. With the grafts intact, I was able to measure and contour and appropriate sized plate. The plate was positioned at the midline over the appropriate levels at C5 6 and 7. Screw holes were established with a hand drill and drill guide. Screws were placed in good alignment and position with excellent bony purchase. They were seated under the locking device. The construct was checked and found to be stable. Intraoperative x-ray was taken which showed good alignment and position of the implants at the appropriate levels at C5 6 and 7. There was no evidence of any dural tear or leak. Good hemostasis was maintained. The wound was copiously irrigated and suctioned dry as had been done periodically throughout the case. The platysma was closed with absorbable suture. The subcutaneous tissue was closed. The subcuticular tissue was closed with absorbable suture. The wound was cleaned and dried and dressed appropriately. A soft cervical collar was placed appropriately. The patient was woken up by anesthesia, extubated, transferred back gently to their hospital bed and brought to the recovery room in good stable condition. The patient will be admitted to the hospital for appropriate postoperative care , medical management and monitoring. We will continue to follow them closely about the postoperative course.
[2017-09-11 15:55] LABS: Glucose,Whole Blood 154 mg/dL (75-99)
--- NOTE | 2017-09-11 15:57 | XR ---
EXAMINATION TYPE: XR cervical spine 1V DATE OF EXAM: 09/11/2017 COMPARISON: NONE HISTORY: Hardware placement TECHNIQUE: Lateral cervical spine FINDINGS: There is an anterior cervical fusion plate at C5-C7. Some disc spaces appear to be present C5-6 C6-7. Endotracheal tube appears to remain present. The inferior portion of C7 is not visualized due to the patient's shoulders during the exam. IMPRESSION: 1. Status post anterior cervical fusion plate C5-C7
[2017-09-11] MEDS ORDERED: ceFAZolin 3 GM in SODIUM CHLORIDE 0.9% 100 ML IVPB SCH (16:00)
[2017-09-11] MEDS: LABETALOL 5 MG/ML VIAL MDV IVP ONE ×2 (16:11→17:01)
[2017-09-11] MEDS ORDERED: ENALAPRILAT 1.25 MG/ML 1 ML VIAL IVP ONE (16:16)
--- NOTE | 2017-09-11 16:20 | XR ---
EXAMINATION TYPE: XR cervical spine 1V DATE OF EXAM: 09/11/2017 COMPARISON: NONE HISTORY: Cervical spine surgery TECHNIQUE: Lateral cervical spine FINDINGS: There is a needle directed to the C5-C6 disc space. Some disc space narrowing is noted at t his level. Endotracheal tube is present. IMPRESSION: 1. Metallic needle directed towards the C5-6 disc level.
[2017-09-11] MEDS: hydrALAZINE HCL 20 MG/ML 1 ML VIAL IVP ONE ×2 (16:23→16:33)
[2017-09-11] MEDS: HYDROmorphone 0.5 MG/0.5 ML SYRINGE IVP PRN ×2 (16:28→16:38)
[2017-09-11] MEDS ORDERED: PRAMLINTIDE ACETATE SQ SCH (17:30)
[2017-09-11 18:48] LABS: Glucose,Whole Blood 210 mg/dL (75-99)
[2017-09-11] MEDS: HYDROcodone/APAP 10-325MG 1 EACH TAB PO PRN (19:52)
[2017-09-11 20:55] LABS: Glucose,Whole Blood 270 mg/dL (75-99)
[2017-09-11] MEDS ORDERED: ALPRAZolam 0.5 MG TAB PO SCH (21:00)
[2017-09-11] MEDS ORDERED: ATORVASTATIN 20 MG TAB PO SCH (21:00)
[2017-09-11] MEDS ORDERED: METOPROLOL SUCCINATE (ER) 100 MG TAB.ER.24H PO SCH (21:00)
[2017-09-11] MEDS: SODIUM CHLORIDE 0.9% 1,000 ML IV SCH (21:30)
[2017-09-11] MEDS: INSULN ASP PRT/INSULIN ASPART 100 UNIT/ML 10 ML VIAL SQ SCH (21:44)
[2017-09-11] MEDS: LISINOPRIL 20 MG TAB PO SCH (21:46)
[2017-09-11] MEDS: ASPIRIN-ACET-CAFF 250-250-65MG 1 EACH TAB PO SCH (21:46)
[2017-09-11] MEDS: ceFAZolin IN SWFI 2 GM/20 ML SYRINGE IVP SCH (23:51)
[2017-09-12] MEDS: HYDROmorphone 2 MG/ML 1 ML SYRINGE IVP PRN ×2 (00:02→04:12)
[2017-09-12] MEDS: SODIUM CHLORIDE 0.9% 1,000 ML IV SCH (06:10)
[2017-09-12 07:22] LABS: Glucose,Whole Blood 223 mg/dL (75-99)
[2017-09-12] MEDS: ceFAZolin IN SWFI 2 GM/20 ML SYRINGE IVP SCH (07:36)
[2017-09-12] MEDS: INSULIN ASPART 100 UNIT/ML 1 ML 10 ML VIAL SQ SCH ×2 (08:27→13:23)
[2017-09-12] MEDS: INSULN ASP PRT/INSULIN ASPART 100 UNIT/ML 10 ML VIAL SQ SCH (08:27)
[2017-09-12] MEDS: ASPIRIN-ACET-CAFF 250-250-65MG 1 EACH TAB PO SCH (08:32)
[2017-09-12] MEDS: LISINOPRIL 20 MG TAB PO SCH (08:32)
[2017-09-12] MEDS: HYDROcodone/APAP 10-325MG 1 EACH TAB PO PRN (08:34)
[2017-09-12] MEDS ORDERED: SENNOSIDES-DOCUSATE SODIUM 1 EACH TAB PO SCH (09:00)
--- NOTE | 2017-09-12 09:05 | P.DS ---
Providers Attending physician: Beto Corrales Consults: 09/11/17 16:28 Consult Physician Urgent Consulting Provider: Dru Colby Consult Reason/Comments: medical management Do you want consulting provider notified?: Yes Primary care physician: Dru Colby Hospital Course: The patient presented on the day of admission as per his operative note.he had significant disc herniations with stenosis at his cervical spine and underwent his anterior cervical discectomy and fusion with decompression as per the operative note. He feels his pain in his arms has improved some degree he saw having some numbness. He has been able tolerate his diet. Physical Exam The incision site is clean dry and intact. There is no erythema no drainage. There is no purulence no evidence of infection.his neck is soft and supple Abdomen soft and nontender. Chest has good excursion with deep inspiration and expiration. The patient has active and passive range of motion intact at the upper and lower extremities. There is no acute change in neurologic status.he has a left upper extremity forearm and dictation intact and unchanged. He has good motion in his neck and upper extremity's. Hospital Course postoperative day #1 says was anterior cervical decompression and fusion for his herniated nucleus pulposis with cervical stenosis and upper extremity radiculopathy. He appears to be improving and progressing steadily. The patient has been making good progress postoperatively. They have completed the prophylactic antibiotics without any signs or symptoms of infection. The patient has been able to advance their diet, and is tolerating diet adequately. The pain was initially controlled with IV medications and is now controlled appropriately with oral medications. The patient has been able to increase their mobilization. The patient has progressed appropriately. I think they are in good stable condition for discharge today. They will be sent home with appropriate prescriptions. I answered their questions to the best of my ability in a language that they can understand and they are agreeable with the plan. They will follow up as directedIn approximately 2 weeks or sooner if he is having any problems. Patient Condition at Discharge: Good Plan - Discharge Summary Discharge Rx Participant: Yes New Discharge Prescriptions: New HYDROcodone/APAP 10-325MG [[place] 10-325] 1 tab PO Q8H PRN #90 tab PRN Reason: Pain No Action Insulin Lispro Protamin/Lispro [humaLOG Mix 75-25 Kwikpen] 50 unit SQ BID Pramlintide Acetate [Symlin Pen 120] 120 mcg SQ AC-SUPPER Simvastatin [Zocor] 40 mg PO HS Lisinopril [Zestril] 20 mg PO BID Aspirin/Acetaminophen/Caffeine [Excedrin Extra Strength Caplet] 2 tab PO BID ALPRAZolam [Xanax] 1 mg PO HS@2100 Metoprolol Succinate (ER) [Toprol Xl] 100 mg PO HS HYDROcodone/APAP 10-325MG [[place] 10-325] 1 tab PO TID PRN PRN Reason: Pain Discharge Medication List Insulin Lispro Protamin/Lispro [humaLOG Mix 75-25 Kwikpen] 50 unit SQ BID [History] Lisinopril [Zestril] 20 mg PO BID 11/24/15 [History] Pramlintide Acetate [Symlin Pen 120] 120 mcg SQ AC-SUPPER 11/24/15 [History] Simvastatin [Zocor] 40 mg PO HS 11/24/15 [History] ALPRAZolam [Xanax] 1 mg PO HS@2100 06/05/17 [History] Aspirin/Acetaminophen/Caffeine [Excedrin Extra Strength Caplet] 2 tab PO BID [History] Metoprolol Succinate (ER) [Toprol Xl] 100 mg PO HS 06/05/17 [History] HYDROcodone/APAP 10-325MG [[place] 10-325] 1 tab PO TID PRN 09/04/17 [History] HYDROcodone/APAP 10-325MG [[place] 10-325] 1 tab PO Q8H PRN #90 tab 09/12/17 [Rx] Follow up Appointment(s)/Referral(s): Beto Corrales DO [Doctor of Osteopathic Medicine] - 2 Weeks (With Ananth Briggs at Dr. Corrales's office) Activity/Diet/Wound Care/Special Instructions: keep site clean. May shower waterproof Tegaderm intact. Do not soak in a tub. On Saturday May remove dressing at least Steri-Strips intact. May shower with area uncovered with Steri-Strips intact after Saturday. May ambulate to tolerance. A sleep and position of comfort. Avoid heavy or rigorous activity. No repetitive bending or overhead work. No heavy lifting. Discharge Disposition: HOME SELF-CARE
[2017-09-12 10:59] VITALS: BP 158/89; PULSE 82; TEMP 97.9
--- NOTE | 2017-09-12 12:01 | P.CONS ---
History of Present Illness - History of Present Illness 61-year-old male is postoperative for anterior cervical discectomy C5 6 C6 7. On exam patient has some collar on sitting at side of bed comfortable stating he is able to take care of himself at home Review of Systems Musculoskeletal: Reports neck pain Musculoskeletal: left: shoulder pain Past Medical History Past Medical History: CVA/TIA, Diabetes Mellitus, Hearing Disorder / Deafness, Hyperlipidemia, Hypertension Additional Past Medical History / Comment(s): TIA. KIDNEY STONE. ABD CRAMPS OCC R/T IBS, DIVERTICULITIS. POSS LT ABD HERNIA. History of Any Multi-Drug Resistant Organisms: None Reported Past Surgical History: Bowel Resection, Orthopedic Surgery Additional Past Surgical History / Comment(s): LEFT KNEE ARTHROSCOPIC. SHUNT 5143-1364 R/T PRESSURE IN SKULL. lt hand amputation, COLONOSCOPY, Past Anesthesia/Blood Transfusion Reactions: No Reported Reaction Past Psychological History: Anxiety, Depression Smoking Status: Current every day smoker Past Alcohol Use History: None Reported Additional Past Alcohol Use History / Comment(s): STARTED SMOKING AT AGE 15/ SMOKES 1PPD; Past Drug Use History: None Reported - Past Family History Mother Family Medical History: Cancer Father Family Medical History: Cancer Medications and Allergies Home Medications Medication Instructions Recorded Confirmed Type Insulin Lispro Protamin/Lispro 50 unit SQ BID 11/24/15 09/11/17 History [humaLOG Mix 75-25 Kwikpen] Lisinopril [Zestril] 20 mg PO BID 11/24/15 09/11/17 History Pramlintide Acetate [Symlin Pen 120 mcg SQ AC-SUPPER 11/24/15 09/11/17 History 120] Simvastatin [Zocor] 40 mg PO HS 11/24/15 09/11/17 History ALPRAZolam [Xanax] 1 mg PO HS@2100 06/05/17 09/11/17 History Aspirin/Acetaminophen/Caffeine 2 tab PO BID 06/05/17 09/11/17 History [Excedrin Extra Strength Caplet] Metoprolol Succinate (ER) [Toprol 100 mg PO HS 06/05/17 09/11/17 History Xl] HYDROcodone/APAP 10-325MG [[place] 1 tab PO TID PRN 09/04/17 09/11/17 History 10-325] HYDROcodone/APAP 10-325MG [[place] 1 tab PO Q8H PRN #90 tab 09/12/17 Rx [id number]] Allergies Allergy/AdvReac Type Severity Reaction Status Date / Time blue dye Allergy Severe Rash/Hives Verified 09/11/17 17:58 codeine Allergy Itching Verified 09/11/17 17:58 naproxen sodium [From Aleve] Allergy Rash/Hives Verified 09/11/17 17:58 naloxegol [From Movantik] AdvReac Nausea & Verified 09/11/17 17:58 Vomiting Physical Exam Vitals: Vital Signs Temp Pulse Pulse Resp BP Pulse Ox 09/12/17 07:00 97.9 F 82 16 158/89 96 09/12/17 00:50 98.1 F 105 H 16 138/90 92 L 09/11/17 21:43 98.2 F 101 H 16 161/90 92 L 09/11/17 18:45 98 16 155/74 92 L 09/11/17 18:30 96 16 163/78 92 L 09/11/17 18:15 95 16 162/81 94 L 09/11/17 18:00 94 16 153/80 98 09/11/17 17:45 88 16 139/74 96 09/11/17 17:30 105 H 16 159/72 92 L 09/11/17 17:15 103 H 16 172/79 93 L 09/11/17 17:11 87 16 153/68 93 L 09/11/17 17:05 150/61 09/11/17 17:00 89 100 16 172/78 93 L 09/11/17 16:48 98 F 90 16 138/73 94 L 09/11/17 16:35 86 16 188/88 96 09/11/17 16:20 86 16 201/95 98 09/11/17 16:04 75 16 204/96 98 09/11/17 15:49 72 16 188/88 98 09/11/17 15:34 98 F 71 16 198/86 97 Intake and Output 09/11/17 09/12/17 09/12/17 22:59 06:59 14:59 Intake Total 300 360 Output Total 200 250 Balance 100 -250 360 Intake: IV 300 Oral 360 Output: Urine 200 250 Other: Voiding Method Urinal Toilet Urinal # Voids 2 Weight 95.254 kg - Constitutional General appearance: mild distress - EENT Eyes: PERRLA Ears: bilateral: normal - Neck Neck: normal ROM - Respiratory Respiratory: bilateral: CTA - Cardiovascular Rhythm: regular - Gastrointestinal General gastrointestinal: soft - Integumentary Integumentary: normal - Neurologic Neurologic: CNII-XII intact - Musculoskeletal Left lower arm amputation Musculoskeletal: gait normal - Psychiatric Psychiatric: A&O x's 3, appropriate affect, intact judgment & insight Results Labs: Abnormal Lab Results - Last 24 Hours (Table) 09/11/17 09/11/17 09/11/17 Range/Units 15:49 18:44 20:49 POC Glucose (mg/dL) 154 H 210 H 270 H (75-99) mg/dL 09/12/17 Range/Units 07:14 POC Glucose (mg/dL) 223 H (75-99) mg/dL Assessment and Plan Plan: Assessment Spinal stenosis C5 6 C6 7 Postoperative anterior cervical discectomy History of CVA/TIA Diabetes type 2 Hard of hearing Hypertension Plan Patient stable for discharge follow-up with family physician and Dr. Locke
[2017-09-12 12:04] LABS: Glucose,Whole Blood 250 mg/dL (75-99)
[2017-09-12] MEDS: LACTATED RINGERS 1,000 ML IV SCH (13:24)
== END 2017-09-12 15:33 | disposition home or self-care (01) ==
LOC: OR 10:20 → 3SUR 16:44 → OR 09-12 15:33
PROVIDERS: ATTEND Orthopaedic Surgery Orthopaedic Surgery of the Spine
DX: M50.123 Cervical disc disorder at C6-C7 level with radiculopathy (principal); M25.78 Osteophyte, vertebrae; M48.02 Spinal stenosis, cervical region; I10 Essential (primary) hypertension; E11.8 Type 2 diabetes mellitus with unspecified complications; Z79.4 Long term (current) use of insulin; E78.5 Hyperlipidemia, unspecified; Z86.73 Personal history of transient ischemic attack (TIA), and cerebral infarction without residual deficits; J43.9 Emphysema, unspecified; F17.210 Nicotine dependence, cigarettes, uncomplicated; Z96.89 Presence of other specified functional implants; F41.9 Anxiety disorder, unspecified; F32.9 Major depressive disorder, single episode, unspecified; H91.90 Unspecified hearing loss, unspecified ear; Z79.82 Long term (current) use of aspirin; Z79.899 Other long term (current) drug therapy; Z88.6 Allergy status to analgesic agent; Z88.5 Allergy status to narcotic agent; Z88.8 Allergy status to other drugs, medicaments and biological substances; Z91.09 Other allergy status, other than to drugs and biological substances
CPT/HCPCS: 22551; 22552; 20931; 86900; 86901; 86850; 72020; C1713 ×2; C1762 ×2; J2250; J1170 ×3; J0360; J2710; J2405; J2001 ×2; J1100; J0330; J2704; J0690 ×2

== ENCOUNTER 2017-09-13 00:04 | Emergency (ER) | payer BC, MEDICARE ==
[2017-09-13 00:14] VITALS: RESP 18
[2017-09-13] MEDS ORDERED: MORPHINE SULFATE 2 MG/ML SYRINGE IVP STA (00:27)
[2017-09-13 01:05] LABS: Basophils # (A) 0.1 k/uL (0-0.2); Basophils % (A) 1 %; Eosinophils # (A) 0.4 k/uL (0-0.7); Eosinophils % (A) 3 %; HCT 50.5 % (39.0-53.0); HGB 16.6 gm/dL (13.0-17.5); Lymphocytes # (A) 1.5 k/uL (1.0-4.8); Lymphocytes % (A) 12 %; MCH 30.6 pg (25.0-35.0); MCHC 32.8 g/dL (31.0-37.0); MCV 93.3 fL (80.0-100.0); Monocytes # (A) 0.9 k/uL (0-1.0); Monocytes % (A) 7 %; Neutrophils # (A) 9.9 k/uL (1.3-7.7); Neutrophils % (A) 77 %; Platelet Count 221 k/uL (150-450); RBC 5.42 m/uL (4.30-5.90); RDW 14.8 % (11.5-15.5); WBC 12.8 k/uL (3.8-10.6)
--- NOTE | 2017-09-13 01:08 | ED ---
Neck Injury/Pain HPI - General Chief Complaint: Neck Pain/Injury Stated Complaint: Neck Pain after Surgery Time Seen by Provider: 09/13/17 00:15 Source: RN notes reviewed, old records reviewed Mode of arrival: wheelchair Limitations: physical limitation - History of Present Illness Initial Comments: 61-year-old male presents today chief complaint of neck pain. He reports he has cervical fusion of C4 [address] Corral[address]. Patient reports that when he came home from the hospital he felt a pop in his neck. He is concerned that he has disrupted his surgery. He states that he is not taking a pain pill on over six hours. He states that his pain is severe on his neck. He does have to wear a soft cervical collar. - Related Data Home Medications Medication Instructions Recorded Confirmed Insulin Lispro Protamin/Lispro 50 unit SQ BID 11/24/15 09/11/17 [humaLOG Mix 75-25 Kwikpen] Lisinopril [Zestril] 20 mg PO BID 11/24/15 09/11/17 Pramlintide Acetate [Symlin Pen 120 mcg SQ AC-SUPPER 11/24/15 09/11/17 120] Simvastatin [Zocor] 40 mg PO HS 11/24/15 09/11/17 ALPRAZolam [Xanax] 1 mg PO HS@2100 06/05/17 09/11/17 Aspirin/Acetaminophen/Caffeine 2 tab PO BID 06/05/17 09/11/17 [Excedrin Extra Strength Caplet] Metoprolol Succinate (ER) [Toprol 100 mg PO HS 06/05/17 09/11/17 Xl] HYDROcodone/APAP 10-325MG [[place] 1 tab PO TID PRN 09/04/17 09/11/17 10-325] Previous Rx's Medication Instructions Recorded HYDROcodone/APAP 10-325MG [[place] 1 tab PO Q8H PRN #90 tab 09/12/17 10-325] Allergies Allergy/AdvReac Type Severity Reaction Status Date / Time blue dye Allergy Severe Rash/Hives Verified 09/13/17 00:08 codeine Allergy Itching Verified 09/13/17 00:08 naproxen sodium [From Aleve] Allergy Rash/Hives Verified 09/13/17 00:08 naloxegol [From Movantik] AdvReac Nausea & Verified 09/13/17 00:08 Vomiting Review of Systems ROS Statement: Those systems with pertinent positive or pertinent negative responses have been documented in the HPI. ROS Other: All systems not noted in ROS Statement are negative. Past Medical History Past Medical History: CVA/TIA, Diabetes Mellitus, Hearing Disorder / Deafness, Hyperlipidemia, Hypertension Additional Past Medical History / Comment(s): TIA. KIDNEY STONE. ABD CRAMPS OCC R/T IBS, DIVERTICULITIS. POSS LT ABD HERNIA. History of Any Multi-Drug Resistant Organisms: None Reported Past Surgical History: Bowel Resection, Orthopedic Surgery Additional Past Surgical History / Comment(s): LEFT KNEE ARTHROSCOPIC. SHUNT 5155-2052 R/T PRESSURE IN SKULL. lt hand amputation, COLONOSCOPY, disk repair to 4,5, 6, Past Anesthesia/Blood Transfusion Reactions: No Reported Reaction Past Psychological History: Anxiety, Depression Smoking Status: Current every day smoker Past Alcohol Use History: None Reported Past Drug Use History: None Reported - Past Family History Mother Family Medical History: Cancer Father Family Medical History: Cancer General Exam - General Exam Comments Initial Comments: This is a 61 year old male, appears in discomfort. Limitations: physical limitation General appearance: alert, in no apparent distress Head exam: Present: atraumatic, normocephalic, normal inspection Eye exam: Present: normal appearance, PERRL, EOMI. Absent: scleral icterus, conjunctival injection, periorbital swelling ENT exam: Present: normal exam, mucous membranes moist Neck exam: Present: other (evidence of surigcal site with dressing. Appears well healling, no significatn erythema. Patient in soft cervial collar. ). Absent: normal inspection, tenderness, meningismus, full ROM, lymphadenopathy Respiratory exam: Present: normal lung sounds bilaterally. Absent: respiratory distress, wheezes, rales, rhonchi, stridor Cardiovascular Exam: Present: regular rate, normal rhythm, normal heart sounds. Absent: systolic murmur, diastolic murmur, rubs, gallop, clicks GI/Abdominal exam: Present: soft, normal bowel sounds. Absent: distended, tenderness, guarding, rebound, rigid Neurological exam: Present: alert, oriented X3, CN II-XII intact Psychiatric exam: Present: normal affect, normal mood Skin exam: Present: warm, dry, intact, normal color. Absent: rash Course Vital Signs 09/13/17 09/13/1709/13/18 00:08 02:00 02:41 Temperature 96.5 F L 97.7 F Pulse Rate 79 77 Respiratory 18 18 Rate Blood Pressure 212/107 202/102 145/67 O2 Sat by Pulse 98 96 Oximetry Medical Decision Making - Medical Decision Making 61-year-old male presents today chief complaint of neck pain. He reports he has cervical fusion of C4 [address] Corral[address]. Patient reports that when he came home from the hospital he felt a pop in his neck. He is concerned that he has disrupted his surgery.You should as well appearing surgical site. He was given IV pain medication. Patient blood pressure noted to be elevated as well. He was given IV labetalol. CBC was within normal limits. Patient soft tissue neck x-ray she's nursing of his instruction over the surgery. Some soft tissue neck swelling related to the surgery.He was reevaluated after the pain medication reports that he feels better. Pills as directed by his physician. Discussed that he should take them every four hours as directed. Patient does have a follow up appointment soon with the orthopedic. There's anywhere. Patient agrees to treatment plan will comply. Discuss. - Lab Data Result diagrams: 09/13/17 00:54 09/13/17 00:54 Lab Results 09/13/17 09/13/17 Range/Units 00:54 00:54 WBC 12.8 H (3.8-10.6) k/uL RBC 5.42 (4.30-5.90) m/uL Hgb 16.6 (13.0-17.5) gm/dL Hct 50.5 (39.0-53.0) % MCV 93.3 (80.0-100.0) fL MCH 30.6 (25.0-35.0) pg MCHC 32.8 (31.0-37.0) g/dL RDW 14.8 (11.5-15.5) % Plt Count 221 (150-450) k/uL Neutrophils % 77 % Lymphocytes % 12 % Monocytes % 7 % Eosinophils % 3 % Basophils % 1 % Neutrophils # 9.9 H (1.3-7.7) k/uL Lymphocytes # 1.5 (1.0-4.8) k/uL Monocytes # 0.9 (0-1.0) k/uL Eosinophils # 0.4 (0-0.7) k/uL Basophils # 0.1 (0-0.2) k/uL Sodium 139 (137-145) mmol/L Potassium 4.6 (3.5-5.1) mmol/L Chloride 105 (98-107) mmol/L Carbon Dioxide 22 (22-30) mmol/L Anion Gap 12 mmol/L BUN 21 H (9-20) mg/dL Creatinine 0.90 (0.66-1.25) mg/dL Est GFR (MDRD) Af Amer >60 (>60 ml/min/1.73 sqM) Est GFR (MDRD) Non-Af >60 (>60 ml/min/1.73 sqM) Glucose 231 H (74-99) mg/dL Calcium 9.0 (8.4-10.2) mg/dL Total Bilirubin 0.6 (0.2-1.3) mg/dL AST 19 (17-59) U/L ALT 30 (21-72) U/L Alkaline Phosphatase 79 (38-126) U/L Total Protein 6.3 (6.3-8.2) g/dL Albumin 3.9 (3.5-5.0) g/dL - Radiology Data Radiology results: report reviewed Soft tissue neck x-ray was completed and is within normal limits. There's evidence of recent fusion and some associated talk to to swelling. No other abnormalities noted. Disposition Clinical Impression: Neck pain Disposition: HOME SELF-CARE Condition: Good Instructions: Acute Neck Pain (ED) Additional Instructions: Patient advised to take the pain medication as prescribed. Patient should follow-up with your primary care provider and [facility] specialist. Return to the emergency department if any alarming signs or symptoms occur. Referrals: Dru Colby MD [Primary Care Provider] - 1-2 days Time of Disposition: 02:16
[2017-09-13 01:14] LABS: ALT 30 U/L (21-72); AST 19 U/L (17-59); Albumin 3.9 g/dL (3.5-5.0); Alkaline Phosphatase 79 U/L (38-126); Anion Gap 12 mmol/L; Blood Urea Nitrogen 21 mg/dL (9-20); Carbon Dioxide 22 mmol/L (22-30); Chloride 105 mmol/L (98-107); Glucose 231 mg/dL (74-99); Potassium 4.6 mmol/L (3.5-5.1); Sodium 139 mmol/L (137-145); Total Bilirubin 0.6 mg/dL (0.2-1.3); Total Protein 6.3 g/dL (6.3-8.2)
--- NOTE | 2017-09-13 01:51 | XR ---
EXAM: XR Cervical Spine, 2 or 3 Views CLINICAL HISTORY: Reason: Pain after surgery TECHNIQUE: Frontal and lateral views of the cervical spine. COMPARISON: Cervical spine radiograph on 09/11/2017 at 1501 hrs. FINDINGS: Bones/joints: No acute fracture or subluxation identified. Stable anterior fusion hardware and interbody spacers from C5-C7. Soft tissues: Prevertebral soft tissue swelling may be related to recent surgery. Other: Interval extubation. IMPRESSION: No acute abnormality identified. Stable anterior fusion hardware and interbody spacers from C5-C7. Prevertebral soft tissue swelling may be related to recent surgery.
[2017-09-13] MEDS ORDERED: LABETALOL 5 MG/ML VIAL MDV IVP STA (02:26)
[2017-09-13 02:43] VITALS: BP 145/67; PULSE 77; TEMP 97.7
== END 2017-09-13 02:41 | disposition home or self-care (01) ==
LOC: EC 00:04
DX: M54.2 Cervicalgia (principal); G89.18 Other acute postprocedural pain; M43.22 Fusion of spine, cervical region; E11.9 Type 2 diabetes mellitus without complications; E78.5 Hyperlipidemia, unspecified; I10 Essential (primary) hypertension; F41.9 Anxiety disorder, unspecified; F17.200 Nicotine dependence, unspecified, uncomplicated; Z86.73 Personal history of transient ischemic attack (TIA), and cerebral infarction without residual deficits; Z79.4 Long term (current) use of insulin; Z79.82 Long term (current) use of aspirin; Z91.048 Other nonmedicinal substance allergy status; Z88.5 Allergy status to narcotic agent; Z88.6 Allergy status to analgesic agent
CPT/HCPCS: 36415; 80053; 85025; 72040; 99284; 96374; 96375; J2270

== ENCOUNTER → 2017-11-05 | Outpatient (CLI) | payer BC, MEDICARE ==
[2017-11-05 11:49] LABS: Blood Urea Nitrogen 21 mg/dL (9-20)
--- NOTE | 2017-11-05 13:22 | CT ---
EXAMINATION TYPE: CT abdomen pelvis w con DATE OF EXAM: 11/05/2017 COMPARISON: CT abdomen and pelvis February 14, 2017 HISTORY: Mid abdominal pain with cramps and burning. History of peritoneal shunt and bowel resection. CT DLP: 1272.3 mGycm, Automated Exposure Control for Dose Reduction was Utilized. CONTRAST: CT scan of the abdomen and pelvis is performed with oral and with IV Contrast, patient injected with 100 mL of Omnipaque 300. FINDINGS: LUNG BASES: No significant abnormality is appreciated. LIVER/GB: Contracted gallbladder is present on current study. PANCREAS: No significant abnormality is seen. SPLEEN: No significant abnormality is seen. ADRENALS: No significant abnormality is seen. KIDNEYS: There are a few simple appearing cysts upper to mid pole level right kidney redemonstrated. BOWEL: Surgical sutures from prior bowel surgery are seen at level of sigmoid colon axial image 71. T he oral contrast does not reach mid ileum. There is no suspicious small or large bowel dilatation. PROSTATE/SEMINAL VESICLES: Prostate gland is upper limits of normal in size. LYMPH NODES: No greater than 1cm abdominal or pelvic lymph nodes are appreciated. OSSEOUS STRUCTURES: There is multilevel facet arthropathy lower lumbar spine. There is mild to modera te disc space narrowing and anterior spurring T11-T12 level OTHER: There is moderate mixed plaque throughout the abdominal aorta extending into branch vessels. There is partial visualization of [employer] HAND shunt catheter entering anterior abdominal wall right midabdomen and terminating in the right lower quadrant anteriorly on axial image 55. Catheter position tip is c hanged from prior. IMPRESSION: No bowel obstruction is present. No significant acute finding is seen to account for jovita ent's clinical symptoms.
== END | disposition home or self-care (01) ==
LOC: RADCTMAIN 11:09
PROVIDERS: ATTEND Family Medicine
DX: R10.9 Unspecified abdominal pain (principal); Z88.5 Allergy status to narcotic agent; Z88.6 Allergy status to analgesic agent; Z88.8 Allergy status to other drugs, medicaments and biological substances
CPT/HCPCS: 82565; 84520; 74177; 36415; Q9967

== ENCOUNTER → 2018-07-09 | Outpatient (CLI) | payer MEDICARE, BC ==
--- NOTE | 2018-07-09 14:38 | XR ---
EXAMINATION TYPE: XR abdomen 1V DATE OF EXAM: 07/09/2018 COMPARISON: 09/19/2015 INDICATION: Abdomen pain TECHNIQUE: Single view abdomen upright view FINDINGS: There is a normal bowel gas pattern. Psoas margins are normal. No organomegaly is present. There is a catheter on the right with the tip in the right hemipelvis. No free air is identified. No mass effect is evident. IMPRESSION: 1. Unremarkable Abdomen
== END ==
LOC: RADXRMAIN 10:48
PROVIDERS: ATTEND Physician Assistant
DX: R10.9 Unspecified abdominal pain (principal)
CPT/HCPCS: 74018

== ENCOUNTER → 2018-09-15 | Outpatient (CLI) | payer MEDICARE, BC ==
--- NOTE | 2018-09-15 13:11 | FL ---
EXAMINATION TYPE: FL UGI air w esophagus DATE OF EXAM: 09/15/2018 12:49 PM COMPARISON: NONE CLINICAL HISTORY: Difficulty in swallowing. Preliminary view of the abdomen reveals a normal bowel gas pattern. Upper GI examination was performed according to the air contrast technique. Barium and effervescent crystal was swallowed without difficulty or delay. Esophageal peristalsis and motility are within no rmal limits. There is no evidence for esophagitis, intraluminal mass,or gastroesophageal reflux. Th e stomach has a normal appearance in terms of its size, shape and location. Small reducible sliding t ype hiatal hernia is noted. No gastric filling defects or ulcer craters are seen. The duodenal bulb and sweep are also free of intraluminal lesion or ulcer crater. And single contrast cervical esophagram was also performed following the ingestion of thin liquid bar ium. There is no evidence for aspiration or penetration. No masses are seen. No filling defects ar e evident. IMPRESSION: Small reducible sliding type hiatal hernia is noted.
== END | disposition home or self-care (01) ==
LOC: RADFLWHC 10:48
PROVIDERS: ATTEND Family Medicine
DX: K44.9 Diaphragmatic hernia without obstruction or gangrene (principal)
CPT/HCPCS: 74246

== ENCOUNTER → 2018-11-03 | Outpatient (CLI) | payer MEDICARE, BC ==
--- NOTE | 2018-11-03 09:03 | CT ---
EXAMINATION TYPE: CT abdomen pelvis wo con DATE OF EXAM: 11/03/2018 COMPARISON: 11/05/2017 HISTORY: Flank pain CT DLP: 752.6 mGycm Automated exposure control for dose reduction was used. TECHNIQUE: Helical acquisition of images was performed from the lung bases through the pelvis. FINDINGS: LUNG BASES: No significant abnormality is appreciated. LIVER/GB: The unenhanced liver has an unremarkable morphology. No cholelithiasis. PANCREAS: No significant abnormality is seen. SPLEEN: No significant abnormality is seen. ADRENALS: No significant abnormality is seen. KIDNEYS: No hydronephrosis or nephrolithiasis. Right-sided renal cysts measure 1.3 and 4.6 cm. FREE AIR: No free air is visualized ADENOPATHY: No greater than 1 cm short axis lymph node is seen within the abdomen or pelvis. REPRODUCTIVE ORGANS: No significant abnormality is seen URINARY BLADDER: No significant abnormality is seen. OSSEOUS STRUCTURES: Minimal degenerative changes of the spine are noted. BOWEL: Surgical sutures are seen around the sigmoid colon from anastomotic site. A diverticulum is s een directly adjacent to the sutures is unchanged from the prior of 11/05/2017. No surrounding soft ti ssue nodular implant. Small amount of retained colonic stool is seen. Right lower quadrant catheter i s present from presumably a ventricular peritoneal shunt. Appendix contains high density debris. Asce nding colon is decompressed with bowel wall thickening, limiting evaluation for underlying masses. No dilated large or small bowel. OTHER: Moderate atherosclerosis of the abdominal aorta and its branches are seen. Inguinal rings are fat filled. IMPRESSION: 1. ASCENDING COLON IS DECOMPRESSED WITH WALL THICKENING THAT MAY RELATE TO MILD UNCOMPLICATED COLITIS , INCOMPLETE DISTENTION WITH COLONIC SPASM, OR LESS LIKELY COLONIC NEOPLASM. CORRELATE WITH ANY PRIOR RECENT COLONOSCOPY. 2. HIGH DENSITY WITHIN THE APPENDIX MAY RELATE TO AN APPENDICOLITH OR PRIOR HYPERDENSE INGESTED ORAL SUBSTANCE. NO CT EVIDENCE OF ACUTE APPENDICITIS. 3. NO HYDRONEPHROSIS OR NEPHROLITHIASIS. BENIGN-APPEARING RIGHT RENAL CYSTS ARE SEEN.
[2018-11-03 09:54] LABS: Total Protein 24 Hour,Urine 448 mg/24hr (42.0-225.0); Total Volume 24 Hour,Urine 1600 mls (800-1800)
== END ==
LOC: RADCTMAIN 07:54
PROVIDERS: ATTEND Family Medicine
DX: K59.9 Functional intestinal disorder, unspecified (principal)
CPT/HCPCS: 36415; 74176; 81050; 82575; 84156

== ENCOUNTER 2018-11-14 22:26 | Emergency (ER) | payer MEDICARE, BC ==
[2018-11-14 22:32] VITALS: BP 123/65; PULSE 94; RESP 16; TEMP 98.7
--- NOTE | 2018-11-14 22:55 | ED ---
ENT HPI - General Chief complaint: ENT Stated complaint: Hearing aid stuck in ear Time Seen by Provider: 11/14/18 22:42 Source: patient Mode of arrival: ambulatory Limitations: no limitations - History of Present Illness Initial comments: 63-year-old male presenting today for chief complaint of possible foreign body in left ear. Patient states that he took out his hearing aid prior to arrival he states he noticed a black tip was off. He states his brother about the size of the end of a pencil. Patient states he does not have a pain or discomfort he states he cannot feel it. His states she cannot see clearly in his ear is not sure if it was stuck inside. He presented for evaluation of possible foreign body. Remaining review of system negative, patient denies any recent fever, chills, shortness of breath, chest pain, back pain, abdominal pain, nausea or vomiting, numbness or tingling, dysuria or hematuria, constipation or diarrhea, headaches or visual changes, or any other complaints. - Related Data Home Medications Medication Instructions Recorded Confirmed Insulin Lispro Protamin/Lispro 50 unit SQ BID 11/24/15 09/11/17 [humaLOG Mix 75-25 Kwikpen] Lisinopril [Zestril] 20 mg PO BID 11/24/15 09/11/17 Pramlintide Acetate [Symlin Pen 120 mcg SQ AC-SUPPER 11/24/15 09/11/17 120] Simvastatin [Zocor] 40 mg PO HS 11/24/15 09/11/17 ALPRAZolam [Xanax] 1 mg PO HS@2100 06/05/17 09/11/17 Aspirin/Acetaminophen/Caffeine 2 tab PO BID 06/05/17 09/11/17 [Excedrin Extra Strength Caplet] Metoprolol Succinate (ER) [Toprol 100 mg PO HS 06/05/17 09/11/17 Xl] RX: HYDROcodone/APAP 10-325MG 1 tab PO TID PRN 09/04/17 09/11/17 [Edmond 10-325] Previous Rx's Medication Instructions Recorded HYDROcodone/APAP 10-325MG [Edmond 1 tab PO Q8H PRN #90 tab 09/12/17 10-325] Allergies Allergy/AdvReac Type Severity Reaction Status Date / Time blue dye Allergy Severe Rash/Hives Verified 11/14/18 22:33 codeine Allergy Itching Verified 11/14/18 22:33 naproxen sodium [From Aleve] Allergy Rash/Hives Verified 11/14/18 22:33 naloxegol [From Movantik] AdvReac Nausea & Verified 11/14/18 22:33 Vomiting Review of Systems ROS Statement: Those systems with pertinent positive or pertinent negative responses have been documented in the HPI. ROS Other: All systems not noted in ROS Statement are negative. Past Medical History Past Medical History: CVA/TIA, Diabetes Mellitus, Hearing Disorder / Deafness, Hyperlipidemia, Hypertension Additional Past Medical History / Comment(s): TIA. KIDNEY STONE. ABD CRAMPS OCC R/T IBS, DIVERTICULITIS. POSS LT ABD HERNIA. History of Any Multi-Drug Resistant Organisms: None Reported Past Surgical History: Bowel Resection, Orthopedic Surgery Additional Past Surgical History / Comment(s): LEFT KNEE ARTHROSCOPIC. SHUNT [id number] R/T PRESSURE IN SKULL. lt hand amputation, COLONOSCOPY, disk repair to 4,5, 6, Past Anesthesia/Blood Transfusion Reactions: No Reported Reaction Past Psychological History: Anxiety, Depression Smoking Status: Current every day smoker Past Alcohol Use History: None Reported Past Drug Use History: None Reported - Past Family History Mother Family Medical History: Cancer Father Family Medical History: Cancer General Exam - General Exam Comments Initial Comments: General: The patient is awake and alert, in no distress, and does not appear acutely ill. Eye: Pupils are equal, round and reactive to light, extra-ocular movements are intact. No nystagmus. There is normal conjunctiva bilaterally. No signs of icterus. Ears, nose, mouth and throat: There are moist mucous membranes and no oral lesions. No foreign body of left ear, normal exam. Normal TM, normal EAC. Cardiovascular: There is a regular rate and rhythm. No murmur, rub or gallop is appreciated. Musculoskeletal: Radial pulses equal bilaterally 2+. Neurological: A&O x 3. CN II-XII intact, There are no obvious motor or sensory deficits. Coordination appears grossly intact. Speech is normal. Skin: Skin is warm and dry and no rashes or lesions are noted. Psychiatric: Cooperative, appropriate mood & affect, normal judgment. Limitations: no limitations Course Vital Signs 11/14/18 22:28 Temperature 98.7 F Pulse Rate 94 Respiratory 16 Rate Blood Pressure 123/65 O2 Sat by Pulse 99 Oximetry Medical Decision Making - Medical Decision Making No foreign body in left ear. Patient denies discomfort or sensation of foreign body in left ear. She'll be discharged home. Patient states he believes the missing piece is probably on the floor. Remaining review of systems is negative. Patient discharged. Disposition Clinical Impression: Normal ear exam Disposition: HOME SELF-CARE Condition: Good Additional Instructions: Please return to emergency room if the symptoms increase or worsen or for any other concerns. Is patient prescribed a controlled substance at d/c from ED?: No Referrals: Dru Colby MD [Primary Care Provider] - 1-2 days Time of Disposition: 22:55
== END 2018-11-14 23:10 | disposition home or self-care (01) ==
LOC: EC 22:26
DX: Z01.10 Encounter for examination of ears and hearing without abnormal findings (principal); E11.9 Type 2 diabetes mellitus without complications; H91.90 Unspecified hearing loss, unspecified ear; E78.5 Hyperlipidemia, unspecified; I10 Essential (primary) hypertension; F32.9 Major depressive disorder, single episode, unspecified; F41.9 Anxiety disorder, unspecified; F17.200 Nicotine dependence, unspecified, uncomplicated; Z79.4 Long term (current) use of insulin; Z79.82 Long term (current) use of aspirin; Z79.899 Other long term (current) drug therapy; Z88.5 Allergy status to narcotic agent; Z88.6 Allergy status to analgesic agent; Z91.09 Other allergy status, other than to drugs and biological substances; Z88.8 Allergy status to other drugs, medicaments and biological substances; Z86.73 Personal history of transient ischemic attack (TIA), and cerebral infarction without residual deficits
CPT/HCPCS: 99282

== ENCOUNTER 2018-12-18 06:51 | Day surgery (SDC) | payer MEDICARE, BC ==
[2018-12-15 16:16] VITALS: BMI 31.3
[~2018-12-18 06:51] MED LIST changes: -BACITRACIN 50,000 UNIT, POLYMYXIN B 500,000 UNIT in SODIUM CHLORIDE 0.9% IRRIGATIO 1,00... IRRIGATION ONE; +LACTATED RINGERS 1,000 ML IV SCH; +LIDOCAINE 1% 20 ML VIAL (10MG/ML) FOR IV START INTRADERMA PRN; -ceFAZolin IN SWFI 2 GM/20 ML SYRINGE IVP ONE
[2018-12-18 07:23] VITALS: TEMP 97.5
[2018-12-18 07:28] LABS: Glucose,Whole Blood 241 mg/dL (75-99)
[2018-12-18] MEDS ORDERED: LIDOCAINE 1% INJ 10MG/ML (20 ML MDV) ONE (07:33)
[2018-12-18] MEDS ORDERED: PROPOFOL 10 MG/ML 20 ML VIAL IV ONE (07:33)
--- NOTE | 2018-12-18 07:45 | P.GSHP ---
History of Present Illness H&P Date: 12/18/18 CHIEF COMPLAINT: GERD HISTORY OF PRESENT ILLNESS: The patient is a 63-year-old male who presents reports gastroesophageal reflux disease. Upper endoscopy was offered for further evaluation and management. PAST MEDICAL HISTORY: Please see list. PAST SURGICAL HISTORY: Please see list. MEDICATIONS: Please see list. ALLERGIES: Please see list. SOCIAL HISTORY: No illicit drug use FAMILY HISTORY: No reports of Crohn disease or ulcerative colitis. REVIEW OF ORGAN SYSTEMS: CONSTITUTIONAL: No reports of fevers or chills. GI: Denies any blood in stools or constipation. PHYSICAL EXAM: VITAL SIGNS: Stable GENERAL: Well-developed and pleasant in no acute distress. HEENT: No scleral icterus. Extraocular movements grossly intact. Moist buccal mucosa. NECK: Supple without lymphadenopathy. CHEST: Unlabored respirations. Equal bilateral excursions. CARDIOVASCULAR: Regular rate and rhythm. Distal 2+ pulses. ABDOMEN: Soft, nondistended. MUSCULOSKELETAL: No clubbing, cyanosis, or edema. ASSESSMENT: 1. Gastroesophageal reflux disease PLAN: 1. Recommend proceeding with an upper endoscopy Past Medical History Past Medical History: CVA/TIA, Diabetes Mellitus, Hearing Disorder / Deafness, Hyperlipidemia, Hypertension Additional Past Medical History / Comment(s): TIA, no residual effects, HX KIDNEY STONE. IBS, HX DIVERTICULITIS. HIATAL HERNIA. History of Any Multi-Drug Resistant Organisms: None Reported Past Surgical History: Bowel Resection, Orthopedic Surgery Additional Past Surgical History / Comment(s): LEFT KNEE ARTHROSCOPIC. SHUNT [id number] R/T PRESSURE IN SKULL. lt hand amputation, COLONOSCOPY, NECK FUSION disC to 4,5, 6, Past Anesthesia/Blood Transfusion Reactions: No Reported Reaction Smoking Status: Current every day smoker - Past Family History Mother Family Medical History: Cancer Father Family Medical History: Cancer Medications and Allergies Home Medications Medication Instructions Recorded Confirmed Type Lisinopril [Zestril] 20 mg PO BID 11/24/15 12/18/18 History Simvastatin [Zocor] 40 mg PO HS 11/24/15 12/18/18 History ALPRAZolam [Xanax] 1 mg PO HS PRN 06/05/17 12/15/18 History Ambien 1 tab PO HS PRN 12/15/18 History Aspirin 325 mg PO DAILY 12/15/18 12/18/18 History Hydrochlorothiazide 12.5 mg PO BID 12/15/18 12/18/18 History Insulin Aspart [NovoLOG Flexpen] 10 units SQ AC-LUNCH 12/15/18 12/18/18 History Insulin Aspart [NovoLOG Flexpen] 20 units SQ BID 12/15/18 12/18/18 History Insulin Detemir (Levemir) [Levemir] 50 unit SQ QAM 12/15/18 12/18/18 History Allergies Allergy/AdvReac Type Severity Reaction Status Date / Time blue dye Allergy Severe Rash/Hives Verified 12/18/18 07:24 codeine Allergy Itching Verified 12/18/18 07:24 naproxen sodium [From Aleve] Allergy Rash/Hives Verified 12/18/18 07:24 naloxegol [From Movantik] AdvReac Nausea & Verified 12/18/18 07:24 Vomiting Surgical - Exam Vital Signs Temp Pulse Resp BP Pulse Ox 97.5 F L 94 17 154/73 98 12/18/18 07:22 12/18/18 07:22 12/18/18 07:22 12/18/18 07:22 12/18/18 07:22 Results - Labs Abnormal Lab Results - Last 24 Hours (Table) 12/18/18 Range/Units 07:21 POC Glucose (mg/dL) 241 H (75-99) mg/dL
--- NOTE | 2018-12-18 07:55 | P.PCN ---
Date of Procedure: 12/18/18 Description of Procedure: PREOPERATIVE DIAGNOSIS: Gastroesophageal reflux disease. Epigastric abdominal pain POSTOPERATIVE DIAGNOSIS: Gastroesophageal reflux disease. Epigastric abdominal pain Diabetes type 2, insulin-dependent Duodenitis, acute on chronic Chronic gastritis Diaphragmatic hiatal hernia OPERATION: Esophagogastroduodenoscopy with biopsies along antrum and duodenum SURGEON: Janine Mercedes MD ANESTHESIA: MAC. INDICATIONS: The patient is a 63-year-old male who presents with a history of reflux disease. Benefits and risks of the procedure were described. Informed consent was obtained. DESCRIPTION: The patient was brought into the endoscopy suite and laid in the left lateral decubitus position. An Olympus gastroscope was passed along the posterior oropharynx down to the distal esophagus where the squamocolumnar junction was encountered at 40 cm from the incisors. The stomach was entered and no bile reflux was found. Additional findings are listed below. Biopsies with cold forceps were obtained of the antrum. The first through third portion of the duodenum was examined. Retroflexion of the scope confirmed Hill grade 4 lower esophageal valve. The squamocolumnar junction demonstrated LA grade B erosive esophagitis. The stomach was desufflated. The patient tolerated the procedure well. FINDINGS: Squamocolumnar junction 40 cm from the incisors. Diaphragmatic hiatus at 43 cm. Hiatal hernia, 3 cm Hill grade 4 lower esophageal valve. LA grade B erosive esophagitis. Active duodenitis. Chronic gastritis with recent bleed RECOMMENDATIONS: Upper endoscopy as needed. Plan - Discharge Summary Discharge Rx Participant: No New Discharge Prescriptions: New Omeprazole 40 mg PO DAILY #30 capsule. No Action Simvastatin [Zocor] 40 mg PO HS Lisinopril [Zestril] 20 mg PO BID ALPRAZolam [Xanax] 1 mg PO HS PRN PRN Reason: Anxiety Insulin Detemir (Levemir) [Levemir] 50 unit SQ QAM Aspirin 325 mg PO DAILY Insulin Aspart [NovoLOG Flexpen] 20 units SQ BID Insulin Aspart [NovoLOG Flexpen] 10 units SQ AC-LUNCH Hydrochlorothiazide 12.5 mg PO BID Ambien 1 tab PO HS PRN PRN Reason: Insomnia Discharge Medication List Lisinopril [Zestril] 20 mg PO BID 11/24/15 [History] Simvastatin [Zocor] 40 mg PO HS 04/07/16 [History] ALPRAZolam [Xanax] 1 mg PO HS PRN 06/05/17 [History] Ambien 1 tab PO HS PRN 12/15/18 [History] Aspirin 325 mg PO DAILY 12/15/18 [History] Hydrochlorothiazide 12.5 mg PO BID 12/15/18 [History] Insulin Aspart [NovoLOG Flexpen] 10 units SQ AC-LUNCH 12/15/18 [History] Insulin Aspart [NovoLOG Flexpen] 20 units SQ BID 12/15/18 [History] Insulin Detemir (Levemir) [Levemir] 50 unit SQ QAM 12/15/18 [History] Omeprazole 40 mg PO DAILY #30 capsule. 12/18/18 [Rx] Follow up Appointment(s)/Referral(s): Janine Mercedes MD [STAFF PHYSICIAN] - 01/20/19 Patient Instructions/Handouts: Duodenitis (DC), Hiatal Hernia (DC) Discharge Disposition: HOME SELF-CARE
[2018-12-18 07:58] VITALS: RESP 16
[2018-12-18 08:33] LABS: Glucose,Whole Blood 245 mg/dL (75-99)
[2018-12-18 08:36] VITALS: BP 110/73; PULSE 68
== END 2018-12-18 08:52 | disposition home or self-care (01) ==
LOC: ORWHC2ENDO 06:51
PROVIDERS: ATTEND Surgery Plastic and Reconstructive Surgery
DX: K31.89 Other diseases of stomach and duodenum (principal); K29.51 Unspecified chronic gastritis with bleeding; K22.10 Ulcer of esophagus without bleeding; K29.80 Duodenitis without bleeding; K44.9 Diaphragmatic hernia without obstruction or gangrene; E11.9 Type 2 diabetes mellitus without complications; E78.5 Hyperlipidemia, unspecified; I10 Essential (primary) hypertension; Z90.49 Acquired absence of other specified parts of digestive tract; Z86.73 Personal history of transient ischemic attack (TIA), and cerebral infarction without residual deficits; Z91.048 Other nonmedicinal substance allergy status; G47.00 Insomnia, unspecified; F41.9 Anxiety disorder, unspecified; Z89.222 Acquired absence of left upper limb above elbow; H91.90 Unspecified hearing loss, unspecified ear; Z87.442 Personal history of urinary calculi; Z98.1 Arthrodesis status; K58.9 Irritable bowel syndrome, unspecified; F17.200 Nicotine dependence, unspecified, uncomplicated; Z79.82 Long term (current) use of aspirin; Z79.4 Long term (current) use of insulin; Z79.899 Other long term (current) drug therapy; Z88.6 Allergy status to analgesic agent; Z88.5 Allergy status to narcotic agent; Z88.8 Allergy status to other drugs, medicaments and biological substances
CPT/HCPCS: 88305; 43239; J2001; J2704

== ENCOUNTER → 2019-03-18 | Outpatient (CLI) | payer MEDICARE, BC ==
--- NOTE | 2019-03-18 15:03 | CT ---
EXAMINATION TYPE: CT abdomen pelvis w con DATE OF EXAM: 03/18/2019 COMPARISON: 11/03/2018 HISTORY: 63-year-old male with abdominal pain. TECHNIQUE: Contiguous axial scanning of the abdomen and pelvis following administration of 100 ml Iso jacinda 300 IV contrast. Delayed images through the kidneys and coronal/sagittal reconstructions perform ed. CT DLP: 1355.7 mGycm Automated exposure control for dose reduction was used. FINDINGS: Heart normal size without pericardial effusion. Lung bases clear without pleural effusion. No focal liver lesion or biliary ductal dilatation. Portal venous system is patent. Gallbladder, adrenal glands, left kidney, spleen, and pancreas appear within normal limits. Exophytic 4.8 cm cyst lateral right kidney versus 4.6 cm, previously. Additional smaller posterior co rtical cyst measures 1.8 cm, unchanged. No dilated small bowel, free fluid, or free air. Some mild mucosal hyperemia and fold thickening of s mall bowel loops in the right lower quadrant. Normal appendix. Moderate stool burden. No pericolonic inflammatory change. Prior bowel resection and reanastomosis al jared the distal sigmoid. Mild atherosclerotic calcifications within the abdominal aorta. No aneurysm. COMMERCIAL CR[employer] shunt catheter enters the anterior right mid abdomen with tip terminating at the anterior right lo wer quadrant. No surrounding abnormal fluid collection. Bladder urine distended. Prostate gland is enlarged 5.2 cm wide. No abnormal fluid collection in the pelvis or pelvic lymphadenopathy. Bones: Facet arthropathy lower lumbar spine. Mild degenerative disc disease lower thoracic spine. IMPRESSION: 1. RIGHT-SIDED COMMERCIAL CRABBER SHUNT CATHETER WITH TIP IN THE ANTERIOR RIGHT LOWER QUADRANT APPEARS UNREMARKABLE. 2. SOME MILD FOLD THICKENING AND MUCOSAL HYPEREMIA OF RIGHT LOWER QUADRANT ILEAL LOOPS. CORRELATE FOR A MILD REGIONAL ENTERITIS. 3. MODERATE STOOL BURDEN. PRIOR DISTAL SIGMOID RESECTION AND REANASTOMOSIS. 5. BENIGN RIGHT RENAL CYST MEASURING UP TO 4.8 CM. 6. PROSTATOMEGALY (5.2 CM WIDE).
== END | disposition home or self-care (01) ==
LOC: RADCTMAIN 12:23
PROVIDERS: ATTEND Family Medicine
DX: N28.1 Cyst of kidney, acquired (principal); N40.0 Benign prostatic hyperplasia without lower urinary tract symptoms; R68.89 Other general symptoms and signs; R19.5 Other fecal abnormalities; Z98.2 Presence of cerebrospinal fluid drainage device
CPT/HCPCS: 82565; 84520; 74177; 36415; Q9967

== ENCOUNTER → 2019-03-27 | Day surgery (SDC) | payer MEDICARE, BC ==
[2019-03-24 09:03] VITALS: BMI 30.1
[~2019-03-27] MED LIST changes: -LACTATED RINGERS 1,000 ML IV SCH; +LIDOCAINE 1% 20 ML VIAL (10MG/ML) FOR IV START INTRADERMA ONE; -LIDOCAINE 1% 20 ML VIAL (10MG/ML) FOR IV START INTRADERMA PRN; +PROPOFOL 10 MG/ML 20 ML VIAL IV ONE
[2019-03-27 09:31] VITALS: TEMP 98.6
[2019-03-27] MEDS: LACTATED RINGERS 1,000 ML IV SCH ×2 (09:45→10:36)
[2019-03-27 09:50] LABS: Glucose,Whole Blood 208 mg/dL (75-99)
[2019-03-27 11:06] VITALS: RESP 18
--- NOTE | 2019-03-27 11:08 | P.GSHP ---
History of Present Illness H&P Date: 03/27/19 CHIEF COMPLAINT: Colon screen HISTORY OF PRESENT ILLNESS: The patient is a 63-year-old male who presents for colon screen. Lower endoscopy was offered for further evaluation and management. PAST MEDICAL HISTORY: Please see list. PAST SURGICAL HISTORY: Please see list. MEDICATIONS: Please see list. ALLERGIES: Please see list. SOCIAL HISTORY: No illicit drug use FAMILY HISTORY: No reports of Crohn disease or ulcerative colitis. REVIEW OF ORGAN SYSTEMS: CONSTITUTIONAL: No reports of fevers or chills. PHYSICAL EXAM: VITAL SIGNS: Stable GENERAL: Well-developed pleasant in no acute distress. HEENT: No scleral icterus. Extraocular movements grossly intact. Moist buccal mucosa. NECK: Supple without lymphadenopathy. CHEST: Unlabored respirations. Equal bilateral excursions. CARDIOVASCULAR: Regular rate and rhythm. Distal 2+ pulses. ABDOMEN: Soft, nontender, nondistended. MUSCULOSKELETAL: No clubbing, cyanosis, or edema. ASSESSMENT: 1. Colon screen. PLAN: 1. Recommend proceeding with a lower endoscopy Past Medical History Past Medical History: CVA/TIA, Diabetes Mellitus, Hearing Disorder / Deafness, Hyperlipidemia, Hypertension Additional Past Medical History / Comment(s): TIA, no residual effects, HX KIDNEY STONE. IBS, HX DIVERTICULITIS. HIATAL HERNIA, constipation x [address] to report History of Any Multi-Drug Resistant Organisms: None Reported Past Surgical History: Bowel Resection, Orthopedic Surgery Additional Past Surgical History / Comment(s): LEFT KNEE ARTHROSCOPIC. SHUNT [id number] R/T PRESSURE IN SKULL. lt hand amputation, COLONOSCOPY, NECK FUSION disC 4,5, 6, Past Anesthesia/Blood Transfusion Reactions: No Reported Reaction Smoking Status: Current every day smoker - Past Family History Mother Family Medical History: Cancer Father Family Medical History: Cancer Medications and Allergies Home Medications Medication Instructions Recorded Confirmed Type Lisinopril [Zestril] 20 mg PO BID 11/24/15 03/24/19 History Simvastatin [Zocor] 40 mg PO AC-SUPPER 11/24/15 03/24/19 History ALPRAZolam [Xanax] 1 mg PO HS PRN 06/05/17 03/24/19 History Hydrochlorothiazide 12.5 mg PO BID 12/15/18 03/24/19 History Insulin Aspart [NovoLOG Flexpen] 10 units SQ AC-LUNCH 12/15/18 03/24/19 History Insulin Aspart [NovoLOG Flexpen] 20 units SQ BID 12/15/18 03/24/19 History Insulin Detemir (Levemir) [Levemir] 45 unit SQ QAM 12/15/18 03/24/19 History Allergies Allergy/AdvReac Type Severity Reaction Status Date / Time blue dye Allergy Severe Rash/Hives Verified 03/27/19 09:27 codeine Allergy Itching Verified 03/27/19 09:27 naproxen sodium [From Aleve] Allergy Rash/Hives Verified 03/27/19 09:27 naloxegol [From Movantik] AdvReac Nausea & Verified 03/27/19 09:27 Vomiting Surgical - Exam Vital Signs Temp Pulse Resp BP Pulse Ox 98.6 F 99 16 149/72 98 03/27/19 09:29 03/27/19 09:29 03/27/19 09:29 03/27/19 09:29 03/27/19 09:29 Results - Labs Abnormal Lab Results - Last 24 Hours (Table) 03/27/19 Range/Units 09:44 POC Glucose (mg/dL) 208 H (75-99) mg/dL
--- NOTE | 2019-03-27 11:08 | P.GSHP ---
History of Present Illness H&P Date: 03/27/19 PREOPERATIVE DIAGNOSIS: Colonoscopy screening POSTOPERATIVE DIAGNOSIS: Colonoscopy screening Large tubular adenoma, descending colon Sigmoid diverticulosis OPERATION: Colonoscopy to the ileocecal valve and appendiceal orifice. Colonoscopy with hot snare polypectomy SURGEON: Janine Mercedes MD. ANESTHESIA: MAC. INDICATIONS: The patient is a 63-year-old male who presents for colonoscopy screening. Benefits and risks were described and informed consent was obtained. DESCRIPTION OF PROCEDURE: The patient had undergone Suprep. He had been brought into the operating room and laid in the left lateral decubitus position. After adequate intravenous sedation, the rectum was examined with 2% lidocaine jelly. No external hemorrhoids were encountered. The rectal tone was within normal limits. No lesions were palpated in the rectal vault. An Olympus colonoscope was advanced until the ileocecal valve and appendiceal orifice were clearly viewed. The prep was fair with visualization of the mucosal folds. Sigmoid scattered diverticulosis was encountered. Large 8 mm tubular adenoma recent bleed was found to 30 cm and addressed with snare polypectomy. No evidence of focal colitis was found. Retroflexion of the scope demonstrated grade 1 internal hemorrhoids without active bleeding or inflammation. The colon was desufflated. The patient had tolerated the procedure well. Withdrawal time was over 6 minutes. FINDINGS: Aronchick preparation quality scale 3 (1-5) Internal hemorrhoids, grade 1 No external hemorrhoids No arteriovenous malformations. Removal of 2 polyps: - Snare polypectomy 30 cm from the anal verge, 8 mm and 3 mm tubulovillous adenoma polyp. Sigmoid diverticulosis No focal colitis. RECOMMENDATIONS: Repeat colonoscopy in 2 years, 2020 Past Medical History Past Medical History: CVA/TIA, Diabetes Mellitus, Hearing Disorder / Deafness, Hyperlipidemia, Hypertension Additional Past Medical History / Comment(s): TIA, no residual effects, HX KIDNEY STONE. IBS, HX DIVERTICULITIS. HIATAL HERNIA, constipation x [address] to report History of Any Multi-Drug Resistant Organisms: None Reported Past Surgical History: Bowel Resection, Orthopedic Surgery Additional Past Surgical History / Comment(s): LEFT KNEE ARTHROSCOPIC. SHUNT 3617-0820 R/T PRESSURE IN SKULL. lt hand amputation, COLONOSCOPY, NECK FUSION disC 4,5, 6, Past Anesthesia/Blood Transfusion Reactions: No Reported Reaction Smoking Status: Current every day smoker - Past Family History Mother Family Medical History: Cancer Father Family Medical History: Cancer Medications and Allergies Home Medications Medication Instructions Recorded Confirmed Type Lisinopril [Zestril] 20 mg PO BID 11/24/15 03/24/19 History Simvastatin [Zocor] 40 mg PO AC-SUPPER 11/24/15 03/24/19 History ALPRAZolam [Xanax] 1 mg PO HS PRN 06/05/17 03/24/19 History Hydrochlorothiazide 12.5 mg PO BID 12/15/18 03/24/19 History Insulin Aspart [NovoLOG Flexpen] 10 units SQ AC-LUNCH 12/15/18 03/24/19 History Insulin Aspart [NovoLOG Flexpen] 20 units SQ BID 12/15/18 03/24/19 History Insulin Detemir (Levemir) [Levemir] 45 unit SQ QAM 12/15/18 03/24/19 History Allergies Allergy/AdvReac Type Severity Reaction Status Date / Time blue dye Allergy Severe Rash/Hives Verified 03/27/19 09:27 codeine Allergy Itching Verified 03/27/19 09:27 naproxen sodium [From Aleve] Allergy Rash/Hives Verified 03/27/19 09:27 naloxegol [From Movantik] AdvReac Nausea & Verified 03/27/19 09:27 Vomiting Surgical - Exam Vital Signs Temp Pulse Resp BP Pulse Ox 98.6 F 99 16 149/72 98 03/27/19 09:29 03/27/19 09:29 03/27/19 09:29 03/27/19 09:29 03/27/19 09:29 Results - Labs Abnormal Lab Results - Last 24 Hours (Table) 03/27/19 Range/Units 09:44 POC Glucose (mg/dL) 208 H (75-99) mg/dL
--- NOTE | 2019-03-27 11:10 | P.PCN ---
Date of Procedure: 03/27/19 Description of Procedure: PREOPERATIVE DIAGNOSIS: Colonoscopy screening POSTOPERATIVE DIAGNOSIS: Colonoscopy screening Large tubular adenoma, descending colon Sigmoid diverticulosis OPERATION: Colonoscopy to the ileocecal valve and appendiceal orifice. Colonoscopy with hot snare polypectomy SURGEON: Janine Mercedes MD. ANESTHESIA: MAC. INDICATIONS: The patient is a 63-year-old male who presents for colonoscopy screening. Benefits and risks were described and informed consent was obtained. DESCRIPTION OF PROCEDURE: The patient had undergone Suprep. He had been brought into the operating room and laid in the left lateral decubitus position. After adequate intravenous sedation, the rectum was examined with 2% lidocaine jelly. No external hemorrhoids were encountered. The rectal tone was within normal limits. No lesions were palpated in the rectal vault. An Olympus colonoscope was advanced until the ileocecal valve and appendiceal orifice were clearly viewed. The prep was fair with visualization of the mucosal folds. Sigmoid scattered diverticulosis was encountered. Large 8 mm tubular adenoma recent bleed was found to 30 cm and addressed with snare polypectomy. No evidence of focal colitis was found. Retroflexion of the scope demonstrated grade 1 internal hemorrhoids without active bleeding or inflammation. The colon was desufflated. The patient had tolerated the procedure well. Withdrawal time was over 6 minutes. FINDINGS: Aronchick preparation quality scale 3 (1-5) Internal hemorrhoids, grade 1 No external hemorrhoids No arteriovenous malformations. Removal of 2 polyps: - Snare polypectomy 30 cm from the anal verge, 8 mm and 3 mm tubulovillous adenoma polyp. Sigmoid diverticulosis No focal colitis. RECOMMENDATIONS: Repeat colonoscopy in 2 years, 2020 Plan - Discharge Summary Discharge Rx Participant: No New Discharge Prescriptions: No Action Simvastatin [Zocor] 40 mg PO AC-SUPPER Lisinopril [Zestril] 20 mg PO BID ALPRAZolam [Xanax] 1 mg PO HS PRN PRN Reason: Anxiety Insulin Detemir (Levemir) [Levemir] 45 unit SQ QAM Insulin Aspart [NovoLOG Flexpen] 20 units SQ BID Insulin Aspart [NovoLOG Flexpen] 10 units SQ AC-LUNCH Hydrochlorothiazide 12.5 mg PO BID Discharge Medication List Lisinopril [Zestril] 20 mg PO BID 11/24/15 [History] Simvastatin [Zocor] 40 mg PO AC-SUPPER 11/24/15 [History] ALPRAZolam [Xanax] 1 mg PO HS PRN 06/05/17 [History] Hydrochlorothiazide 12.5 mg PO BID 12/15/18 [History] Insulin Aspart [NovoLOG Flexpen] 10 units SQ AC-LUNCH 12/15/18 [History] Insulin Aspart [NovoLOG Flexpen] 20 units SQ BID 12/15/18 [History] Insulin Detemir (Levemir) [Levemir] 45 unit SQ QAM 12/15/18 [History] Follow up Appointment(s)/Referral(s): Janine Mercedes MD [STAFF PHYSICIAN] - 04/07/19 Patient Instructions/Handouts: *Surgery [facility] - (Anesthesia) Endoscopy Discharge Instructions, Diverticulosis (GEN), Colorectal Polyps (DC), Diverticulosis Diet (GEN), Colonoscopy (DC) Activity/Diet/Wound Care/Special Instructions: Repeat colonoscopy 2 years, 2020 Discharge Disposition: HOME SELF-CARE
[2019-03-27 11:29] LABS: Glucose,Whole Blood 228 mg/dL (75-99)
[2019-03-27 11:38] VITALS: BP 122/80; PULSE 94
== END | disposition home or self-care (01) ==
LOC: ORWHC2ENDO 09:11
PROVIDERS: ATTEND Surgery Plastic and Reconstructive Surgery
DX: Z12.11 Encounter for screening for malignant neoplasm of colon (principal); D12.4 Benign neoplasm of descending colon; K57.30 Diverticulosis of large intestine without perforation or abscess without bleeding; K64.0 First degree hemorrhoids; Z90.49 Acquired absence of other specified parts of digestive tract; K44.9 Diaphragmatic hernia without obstruction or gangrene; I10 Essential (primary) hypertension; E11.9 Type 2 diabetes mellitus without complications; E78.5 Hyperlipidemia, unspecified; H91.90 Unspecified hearing loss, unspecified ear; K58.9 Irritable bowel syndrome, unspecified; F41.9 Anxiety disorder, unspecified; F17.200 Nicotine dependence, unspecified, uncomplicated; Z86.73 Personal history of transient ischemic attack (TIA), and cerebral infarction without residual deficits; Z98.1 Arthrodesis status; Z87.442 Personal history of urinary calculi; Z89.112 Acquired absence of left hand; Z79.4 Long term (current) use of insulin; Z79.899 Other long term (current) drug therapy; Z88.5 Allergy status to narcotic agent; Z88.6 Allergy status to analgesic agent; Z91.048 Other nonmedicinal substance allergy status; Z80.9 Family history of malignant neoplasm, unspecified
CPT/HCPCS: 45385; 88305; J2704

== ENCOUNTER 2019-05-09 08:42 | Inpatient (IN) | payer MEDICARE, BC ==
[2019-05-09] MEDS ORDERED: IPRATROPIUM-ALBUTEROL 3 ML NEB INHALATION STA (09:12)
[2019-05-09] MEDS ORDERED: ASPIRIN 81 MG PO STA (09:15)
--- NOTE | 2019-05-09 09:19 | ED ---
Abdominal Pain HPI - General Chief Complaint: Abdominal Pain Stated Complaint: nausea/vomiting/chest ache & pain Time Seen by Provider: 05/09/19 09:01 Source: patient, RN notes reviewed Mode of arrival: ambulatory Limitations: no limitations - History of Present Illness Initial Comments: This a 63-year-old male presents emergency Department chief complaint chest pain. Patient is he's had some abdominal discomfort along with chest pain or last week but states it's now worsened and only chest pain. Patient states his sinuses left side. Patient states that he does have a known hiatal hernia with some GERD symptoms but is on medications which helped that. Patient denies any fevers or chills no lower abdominal pain. Denies any prior MIs states he has a history of hyperlipidemia hypertension, diabetes and is a current smoker. Patient does have shortness of breath. - Related Data Home Medications Medication Instructions Recorded Confirmed Lisinopril [Zestril] 20 mg PO BID 11/24/15 05/09/19 Simvastatin [Zocor] 40 mg PO AC-SUPPER 11/24/15 05/09/19 Hydrochlorothiazide 12.5 mg PO BID 12/15/18 05/09/19 Insulin Aspart [NovoLOG Flexpen] 10 units SQ AC-LUNCH 12/15/18 05/09/19 Insulin Aspart [NovoLOG Flexpen] 20 units SQ BID 12/15/18 05/09/19 Insulin Detemir (Levemir) [Levemir] 45 unit SQ QAM 12/15/18 05/09/19 Pantoprazole [Protonix] 40 mg PO DAILY 05/09/19 05/09/19 Allergies Allergy/AdvReac Type Severity Reaction Status Date / Time blue dye Allergy Severe Rash/Hives Verified 05/09/19 10:07 codeine Allergy Itching Verified 05/09/19 10:07 naproxen sodium [From Aleve] Allergy Rash/Hives Verified 05/09/19 10:07 naloxegol [From Movantik] AdvReac Nausea & Verified 05/09/19 10:07 Vomiting Review of Systems ROS Statement: Those systems with pertinent positive or pertinent negative responses have been documented in the HPI. ROS Other: All systems not noted in ROS Statement are negative. Past Medical History Past Medical History: CVA/TIA, Diabetes Mellitus, Hearing Disorder / Deafness, Hyperlipidemia, Hypertension Additional Past Medical History / Comment(s): TIA, no residual effects, HX KIDNEY STONE. IBS, HX DIVERTICULITIS. HIATAL HERNIA. History of Any Multi-Drug Resistant Organisms: None Reported Past Surgical History: Bowel Resection, Orthopedic Surgery Additional Past Surgical History / Comment(s): LEFT KNEE ARTHROSCOPIC. SHUNT [id number] R/T PRESSURE IN SKULL. lt hand amputation, COLONOSCOPY, NECK FUSION disC to 4,5, 6, Past Anesthesia/Blood Transfusion Reactions: No Reported Reaction Past Psychological History: Anxiety, Depression Smoking Status: Current every day smoker Past Alcohol Use History: None Reported Past Drug Use History: Marijuana - Past Family History Mother Family Medical History: Cancer Father Family Medical History: Cancer General Exam Limitations: no limitations General appearance: alert, in no apparent distress Head exam: Present: atraumatic, normocephalic, normal inspection Eye exam: Present: normal appearance, PERRL, EOMI. Absent: scleral icterus, conjunctival injection, periorbital swelling Neck exam: Present: normal inspection, full ROM. Absent: tenderness, meningismus, lymphadenopathy Respiratory exam: Present: wheezes. Absent: normal lung sounds bilaterally, respiratory distress, rales, rhonchi, stridor Cardiovascular Exam: Present: regular rate, normal rhythm, normal heart sounds. Absent: systolic murmur, diastolic murmur, rubs, gallop, clicks GI/Abdominal exam: Present: soft, normal bowel sounds. Absent: distended, tenderness, guarding, rebound, rigid Neurological exam: Present: alert, oriented X3, CN II-XII intact Skin exam: Present: warm, dry, intact, normal color. Absent: rash Course Vital Signs 05/09/19 05/09/19 05/09/19 08:58 09:15 09:25 Temperature 98.1 F Pulse Rate 90 88 89 Pulse Rate [ Abstract Manager ] Respiratory 18 Rate Blood Pressure 141/80 O2 Sat by Pulse 98 Oximetry 05/09/19 10:28 Temperature Pulse Rate Pulse Rate [ 75 Abstract Manager ] Respiratory Rate Blood Pressure O2 Sat by Pulse Oximetry Medical Decision Making - Medical Decision Making 63-year-old male presented for chest pain. Patient workup is negative at this time there is multiple cardiac risk factors. Patient be admitted for cardiac observation, Cardiology Evaluation. - Lab Data Result diagrams: 05/09/19 09:20 05/09/19 09:20 Lab Results 05/09/19 05/09/19 05/09/19 Range/Units 09:20 09:20 09:20 WBC 11.4 H (3.8-10.6) k/uL RBC 5.32 (4.30-5.90) m/uL Hgb 16.6 (13.0-17.5) gm/dL Hct 48.9 (39.0-53.0) % MCV 91.8 (80.0-100.0) fL MCH 31.2 (25.0-35.0) pg MCHC 33.9 (31.0-37.0) g/dL RDW 13.4 (11.5-15.5) % Plt Count 289 (150-450) k/uL Neutrophils % 78 % Lymphocytes % 12 % Monocytes % 5 % Eosinophils % 2 % Basophils % 2 % Neutrophils # 8.9 H (1.3-7.7) k/uL Lymphocytes # 1.3 (1.0-4.8) k/uL Monocytes # 0.6 (0-1.0) k/uL Eosinophils # 0.2 (0-0.7) k/uL Basophils # 0.2 (0-0.2) k/uL PT 11.2 (9.0-12.0) sec INR 1.1 (<1.2) APTT 26.6 (22.0-30.0) sec D-Dimer 0.33 (<0.60) mg/L FEU Sodium 140 (137-145) mmol/L Potassium 4.5 (3.5-5.1) mmol/L Chloride 107 (98-107) mmol/L Carbon Dioxide 22 (22-30) mmol/L Anion Gap 11 mmol/L BUN 27 H (9-20) mg/dL Creatinine 1.14 (0.66-1.25) mg/dL Est GFR (CKD-EPI)AfAm 79 (>60 ml/min/1.73 sqM) Est GFR (CKD-EPI)NonAf 68 (>60 ml/min/1.73 sqM) Glucose 173 H (74-99) mg/dL Calcium 9.9 (8.4-10.2) mg/dL Magnesium 1.9 (1.6-2.3) mg/dL Total Bilirubin 0.9 (0.2-1.3) mg/dL AST 18 (17-59) U/L ALT 29 (21-72) U/L Alkaline Phosphatase 94 (38-126) U/L Troponin I (0.000-0.034) ng/mL NT-Pro-B Natriuret Pep pg/mL Total Protein 7.5 (6.3-8.2) g/dL Albumin 4.5 (3.5-5.0) g/dL Lipase 125 (23-300) U/L 05/09/19 05/09/19 Range/Units 09:20 09:20 WBC (3.8-10.6) k/uL RBC (4.30-5.90) m/uL Hgb (13.0-17.5) gm/dL Hct (39.0-53.0) % MCV (80.0-100.0) fL MCH (25.0-35.0) pg MCHC (31.0-37.0) g/dL RDW (11.5-15.5) % Plt Count (150-450) k/uL Neutrophils % % Lymphocytes % % Monocytes % % Eosinophils % % Basophils % % Neutrophils # (1.3-7.7) k/uL Lymphocytes # (1.0-4.8) k/uL Monocytes # (0-1.0) k/uL Eosinophils # (0-0.7) k/uL Basophils # (0-0.2) k/uL PT (9.0-12.0) sec INR (<1.2) APTT (22.0-30.0) sec D-Dimer (<0.60) mg/L FEU Sodium (137-145) mmol/L Potassium (3.5-5.1) mmol/L Chloride (98-107) mmol/L Carbon Dioxide (22-30) mmol/L Anion Gap mmol/L BUN (9-20) mg/dL Creatinine (0.66-1.25) mg/dL Est GFR (CKD-EPI)AfAm (>60 ml/min/1.73 sqM) Est GFR (CKD-EPI)NonAf (>60 ml/min/1.73 sqM) Glucose (74-99) mg/dL Calcium (8.4-10.2) mg/dL Magnesium (1.6-2.3) mg/dL Total Bilirubin (0.2-1.3) mg/dL AST (17-59) U/L ALT (21-72) U/L Alkaline Phosphatase (38-126) U/L Troponin I <0.012 (0.000-0.034) ng/mL NT-Pro-B Natriuret Pep 77 pg/mL Total Protein (6.3-8.2) g/dL Albumin (3.5-5.0) g/dL Lipase (23-300) U/L - EKG Data EKG Comments: EKG performed at 9:50 normal sinus rhythm rate of 80 [place] 176 QRS 78 QT/QTC 346/411 Critical Care Time Critical Care Time: Yes Total Critical Care Time: 35 Critical Care Time: Total 35 minutes of critical extremities initially evaluated patient, reviewed past medical history or labs, EKG, chest x-ray. Patient was given aspirin. Patient's workup is negative this time though he has significant cardiac history. Patient will be heparinized at this time case discussed with admitting physician consult to cardiology. Patient will have serial troponins, repeat EKG for worsening symptoms. Patient family updated on results. Disposition Clinical Impression: Chest pain Disposition: ADMITTED IP TO THIS HOSP Condition: Fair Referrals: Dru Colby MD [Primary Care Provider] - 1-2 days
[2019-05-09 09:40] LABS: Basophils # (A) 0.2 k/uL (0-0.2); Basophils % (A) 2 %; Eosinophils # (A) 0.2 k/uL (0-0.7); Eosinophils % (A) 2 %; HCT 48.9 % (39.0-53.0); HGB 16.6 gm/dL (13.0-17.5); Lymphocytes # (A) 1.3 k/uL (1.0-4.8); Lymphocytes % (A) 12 %; MCH 31.2 pg (25.0-35.0); MCHC 33.9 g/dL (31.0-37.0); MCV 91.8 fL (80.0-100.0); Mean Platelet Volume 6.7; Monocytes # (A) 0.6 k/uL (0-1.0); Monocytes % (A) 5 %; Neutrophils # (A) 8.9 k/uL (1.3-7.7); Neutrophils % (A) 78 %; Platelet Count 289 k/uL (150-450); RBC 5.32 m/uL (4.30-5.90); RDW 13.4 % (11.5-15.5); WBC 11.4 k/uL (3.8-10.6)
[2019-05-09 09:54] LABS: Albumin 4.5 g/dL (3.5-5.0); Calcium 9.9 mg/dL (8.4-10.2); Magnesium 1.9 mg/dL (1.6-2.3); Potassium 4.5 mmol/L (3.5-5.1); Total Bilirubin 0.9 mg/dL (0.2-1.3); Total Protein 7.5 g/dL (6.3-8.2)
[2019-05-09 09:56] LABS: D-Dimer 0.33 mg/L FEU (<0.60); INR 1.1 (<1.2); Partial Thromboplastin Time 26.6 sec (22.0-30.0); Prothrombin Time 11.2 sec (9.0-12.0)
--- NOTE | 2019-05-09 09:57 | XR ---
EXAMINATION TYPE: XR chest 2V DATE OF EXAM: 05/09/2019 HISTORY: Chest Pain. REFERENCE: Previous study dated 06/05/2017. FINDINGS: A shunt catheter projects over the right side of the chest. There has been an ACDF of the l ower cervical spine. Heart size upper limits of normal. The lungs are clear. Pleural spaces are clear. IMPRESSION: NO ACUTE INTRATHORACIC ABNORMALITY.
[2019-05-09] MEDS ORDERED: HEPARIN SODIUM,PORCINE 5,000 UNIT/ML 1 ML VIAL IV ONE (10:32)
[2019-05-09] MEDS ORDERED: HEPARIN SOD,PORK IN 0.45% NACL 25,000 UNIT in 0.45% NACL 1 250ML.BAG IV SCH (10:45)
[2019-05-09 11:45] LABS: Appearance,Urine Clear (Clear); Bilirubin,Urine Negative (Negative); Blood,Urine Negative (Negative); Color,Urine Yellow; Glucose,Urine (UA) 3+ (Negative); Ketones,Urine Negative (Negative); Leukocyte Esterase,Urine Negative (Negative); Mucus,Urine Rare /hpf; Nitrite,Urine Negative (Negative); PH, Urine 5.5 (5.0-8.0); Protein,Urine 1+ (Negative); RBC,Urine <1 /hpf (0-5); Specific Gravity,Urine 1.016 (1.001-1.035); Squamous Epithelial Cell,Urine <1 /hpf (0-4); Urobilinogen,Urine <2.0 mg/dL (<2.0)
[2019-05-09 11:58] LABS: Glucose,Whole Blood 135 mg/dL (75-99)
--- NOTE | 2019-05-09 12:45 | P.CRDCN ---
History of Present Illness Consult date: 05/09/19 History of present illness: This is a 63-year-old gentleman with history of hypertension and also insulin- dependent diabetes mellitus was being treated for a hiatal hernia for the last several days or weeks. Patient now came to the hospital with complaints of nausea and chest pain. He claims that when he laid flat in bed, he started having nausea and vomiting followed by pain in the left side of the chest. It is a dull and aching, but at times she became very severe. He claims that if he sat up, the pain is better. At the time of my examination patient is sitting up in the bed and seemed to be fairly comfortable. He had his lunch and seemed that has aggravated the pain to some extent. He does have some tenderness in the epigastric area. His EKG did not reveal any acute changes. Cardiac enzymes are negative. Pain appears to be atypical for angina. We'll follow his cardiac enzymes and get an echocardiogram. If cardiac enzymes are negative, may proceed with a dobutamine echo ordered Lexiscan stress test. His symptoms could be related to his hiatal hernia. He is smokes about one pack per day. No family history of ischemic heart disease Review of Systems As per the chart Past Medical History Past Medical History: Chest Pain / Angina, CVA/TIA, Diabetes Mellitus, Hearing Disorder / Deafness, Hyperlipidemia, Hypertension Additional Past Medical History / Comment(s): TIA, no residual effects, HX KIDNEY STONE. IBS, HX DIVERTICULITIS. HIATAL HERNIA, perontonial shunt, arthritis History of Any Multi-Drug Resistant Organisms: None Reported Past Surgical History: Bowel Resection, Orthopedic Surgery Additional Past Surgical History / Comment(s): LEFT KNEE ARTHROSCOPIC. SHUNT [id number] R/T PRESSURE IN SKULL. 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, COLONOSCOPY, NECK FUSION disC to 4,5, 6, Past Anesthesia/Blood Transfusion Reactions: No Reported Reaction Past Psychological History: Anxiety, Depression Smoking Status: Current every day smoker Past Alcohol Use History: None Reported Additional Past Alcohol Use History / Comment(s): STARTED SMOKING AT AGE 15 SMOKES 1PPD; Past Drug Use History: Marijuana Additional Drug Use History / Comment(s): occasional use, instructed to hold 24 hrs prior to procedure - Past Family History Mother Family Medical History: Cancer Additional Family Medical History / Comment(s): kidney Father Family Medical History: Cancer Additional Family Medical History / Comment(s): pancreatic Medications and Allergies Home Medications Medication Instructions Recorded Confirmed Type Lisinopril [Zestril] 20 mg PO BID 11/24/15 05/09/19 History Simvastatin [Zocor] 40 mg PO AC-SUPPER 11/24/15 05/09/19 History Hydrochlorothiazide 12.5 mg PO BID 12/15/18 05/09/19 History Insulin Aspart [NovoLOG Flexpen] 10 units SQ AC-LUNCH 12/15/18 05/09/19 History Insulin Aspart [NovoLOG Flexpen] 20 units SQ BID 12/15/18 05/09/19 History Insulin Detemir (Levemir) [Levemir] 45 unit SQ QAM 12/15/18 05/09/19 History Pantoprazole [Protonix] 40 mg PO DAILY 05/09/19 05/09/19 History Allergies Allergy/AdvReac Type Severity Reaction Status Date / Time blue dye Allergy Severe Rash/Hives Verified 05/09/19 10:07 codeine Allergy Itching Verified 05/09/19 10:07 naproxen sodium [From Aleve] Allergy Rash/Hives Verified 05/09/19 10:07 naloxegol [From Movantik] AdvReac Nausea & Verified 05/09/19 10:07 Vomiting Physical Exam Vitals: Vital Signs Temp Pulse Pulse Pulse Resp BP BP 05/09/19 11:53 98.3 F 83 16 146/90 05/09/19 10:47 62 18 147/94 05/09/19 10:28 75 05/09/19 09:25 89 05/09/19 09:15 88 05/09/19 08:58 98.1 F 90 18 141/80 Pulse Ox 05/09/19 11:53 96 05/09/19 10:47 99 05/09/19 10:28 05/09/19 09:25 05/09/19 09:15 05/09/19 08:58 98 Intake and Output 05/08/19 05/09/19 05/09/19 22:59 06:59 14:59 Other: Weight 90.718 kg GENERAL EXAM: Patient is alert and oriented and doesn't appear to be in any acute distress HEENT: Normocephalic. Normal reaction of pupils, equal size, normal range of extraocular motion. No erythema or exudates in the throat. NECK: No masses, no nuchal rigidity. CHEST: No chest wall deformity. LUNGS: Equal air entry with no crackles or wheeze. HEART: S1 and S2 normal with no audible mumurs or gallops. Regular rhythm, femorals equal on both sides.. ABDOMEN: Epigastric tenderness SKIN: No rashes CENTRAL NERVOUS SYSTEM: No focal deficits. EXTREMITIES: No cyanosis, clubbing or edema. Results 05/09/19 09:20 05/09/19 09:20 Cardiac Enzymes 05/09/19 05/09/19 Range/Units 09:20 09:20 AST 18 (17-59) U/L Troponin I <0.012 (0.000-0.034) ng/mL Coagulation 05/09/19 Range/Units 09:20 PT 11.2 (9.0-12.0) sec APTT 26.6 (22.0-30.0) sec CBC 05/09/19 Range/Units 09:20 WBC 11.4 H (3.8-10.6) k/uL RBC 5.32 (4.30-5.90) m/uL Hgb 16.6 (13.0-17.5) gm/dL Hct 48.9 (39.0-53.0) % Plt Count 289 (150-450) k/uL Comprehensive Metabolic Panel 05/09/19 Range/Units 09:20 Sodium 140 (137-145) mmol/L Potassium 4.5 (3.5-5.1) mmol/L Chloride 107 (98-107) mmol/L Carbon Dioxide 22 (22-30) mmol/L BUN 27 H (9-20) mg/dL Creatinine 1.14 (0.66-1.25) mg/dL Glucose 173 H (74-99) mg/dL Calcium 9.9 (8.4-10.2) mg/dL AST 18 (17-59) U/L ALT 29 (21-72) U/L Alkaline Phosphatase 94 (38-126) U/L Total Protein 7.5 (6.3-8.2) g/dL Albumin 4.5 (3.5-5.0) g/dL Current Medications Generic Name Dose Route Start Last Admin Trade Name Freq PRN Reason Stop Dose Admin Aspirin 325 mg 05/10/19 09:00 Aspirin PO DAILY OPAL Heparin Sodium/Sodium Chloride 250 mls @ 9.979 mls/hr 05/09/19 10:45 05/09/19 10:55 25,000 unit/ Sodium Chloride IV 11 units/kg/hr .Q24H OPAL 9.979 mls/hr Administration Protocol 11 UNITS/KG/HR Nitroglycerin 0.4 mg 05/09/19 10:32 Nitrostat SUBLINGUAL Q5M PRN Chest Pain Intake and Output 05/08/19 05/09/19 05/09/19 22:59 06:59 14:59 Other: Weight 90.718 kg Patient Weight 05/10/19 06:59 Weight 90.718 kg 05/09/19 09:20 05/09/19 09:20 EKG Interpretations (text) Sinus rhythm Assessment and Plan (1) Epigastric pain Current Visit: Yes Status: Acute Code(s): R10.13 - EPIGASTRIC PAIN SNOMED Code(s): 55493463 (2) Chest pain Current Visit: Yes Status: Acute Code(s): R07.9 - CHEST PAIN, UNSPECIFIED SNOMED Code(s): 77262355 (3) Hiatal hernia Current Visit: Yes Status: Acute Code(s): K44.9 - DIAPHRAGMATIC HERNIA WITHOUT OBSTRUCTION OR GANGRENE SNOMED Code(s): 79929304 (4) Hypertension Current Visit: Yes Status: Acute Code(s): I10 - ESSENTIAL (PRIMARY) HYPERTENSION SNOMED Code(s): 85589603 (5) Insulin dependent diabetes mellitus Current Visit: Yes Status: Acute Code(s): E11.9 - TYPE 2 DIABETES MELLITUS WITHOUT COMPLICATIONS; Z79.4 - GEAR CUTTER (CURRENT) USE OF INSULIN SNOMED Code(s): 31628252 (6) Smoking Current Visit: Yes Status: Acute Code(s): F17.200 - NICOTINE DEPENDENCE, UNSPECIFIED, UNCOMPLICATED SNOMED Code(s): 22818483 Plan: This patient has multiple risk factors. His pains him a however, appear to be atypical. We'll follow his cardiac enzymes studies. We'll get an echocardiogram. Further recommendation will depend upon the clinical course. If the cardiac enzymes studies are negative, may proceed with a stress test
[2019-05-09] MEDS ORDERED: HYDROcodone/APAP 5-325MG 1 EACH TAB PO STA (16:01)
[2019-05-09 16:36] LABS: Glucose,Whole Blood 243 mg/dL (75-99)
--- NOTE | 2019-05-09 16:50 | P.HPIM ---
History of Present Illness H&P Date: 05/09/19 Chief Complaint: Epigastric pain with nausea and vomiting Mr. Colbert is a 63-year-old male with a past medical history of poorly controlled type 2 diabetes mellitus, hypertension, hearing disorder, hypertension, hyperlipidemia, nephrolithiasis coming into the hospital with a chief complaint of epigastric pain for the past 1-2 days. Patient states that he has history of GERD and hiatal hernia and he is on proton pump inhibitors that help him. But for the past 1 day patient was feeling very nauseous and he also threw up 3-4 times earlier this morning that prompted him to come to the emergency department. Patient denies having any hematemesis. His pain is mostly midep igastric area sometimes radiates to the right upper quadrant. Patient denies having any blood in his stool, no diarrhea or constipation. Patient denies having any chest pain or difficulty in breathing. Patient denies having any orthopnea PND or lower extremity swelling. He has history of type 2 diabetes mellitus that is poorly controlled as his hemoglobin A1c runs around 9 most of the times. He has long-term complications of diabetes in the form of neuropathy and nephropathy. Patient also has history of smoking he used to to 2 packs a day but for the past few months he has been doing less than a pack a day. Patient denies having any sick contacts. Patient denies having any headaches, blurring of vision, loss of consciousness. No ear discharge. No sore throat. No neck stiffness. No joint swelling or back pain. In the ER patient had a chest x-ray and EKG that are within normal limits. Patient had CBC and her lites checked that were within normal limits. He also had a UA that is positive for 3+ glucose present but negative for leukocyte esterase or nitrites. Review of Systems REVIEW OF SYSTEMS: PSYCH: No history of anxiety or depression NEURO:No c/o weakness of the extremties, No facial droop, No speech abnormalities. VASCULAR: Peripheral nervous system within the normal limits no edema HEMATOLOGIC: No history of easy bleeding and bruising . No recent infections . RESPIRATORY: No cough, No SOB, No chest discomfort. IMMUNE: No infections INTEGUMENT: no rashes OPHTHALMOLOGIC: No blurry vision and no eye discharge : No dysuria or hematuria CARDIAC: No chest pain , shortness of breath , paroxysmal nocturnal dyspnea MUSCULOSKELETAL : No Aches or pains in the joints or muscles. GI: As per HPI All 13 review systems done and negative except for the ones mentioned above Past Medical History Past Medical History: Chest Pain / Angina, CVA/TIA, Diabetes Mellitus, Hearing Disorder / Deafness, Hyperlipidemia, Hypertension Additional Past Medical History / Comment(s): TIA, no residual effects, HX KIDNEY STONE. IBS, HX DIVERTICULITIS. HIATAL HERNIA, perontonial shunt, arthritis History of Any Multi-Drug Resistant Organisms: None Reported Past Surgical History: Bowel Resection, Orthopedic Surgery Additional Past Surgical History / Comment(s): LEFT KNEE ARTHROSCOPIC. SHUNT [id number] R/T PRESSURE IN SKULL. 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, COLONOSCOPY, NECK FUSION disC to 4,5, 6, Past Anesthesia/Blood Transfusion Reactions: No Reported Reaction Past Psychological History: Anxiety, Depression Smoking Status: Current every day smoker Past Alcohol Use History: None Reported Additional Past Alcohol Use History / Comment(s): STARTED SMOKING AT AGE 15 SMOKES 1PPD; Past Drug Use History: Marijuana Additional Drug Use History / Comment(s): occasional use, instructed to hold 24 hrs prior to procedure - Past Family History Mother Family Medical History: Cancer Additional Family Medical History / Comment(s): kidney Father Family Medical History: Cancer Additional Family Medical History / Comment(s): pancreatic Medications and Allergies Home Medications Medication Instructions Recorded Confirmed Type Lisinopril [Zestril] 20 mg PO BID 11/24/15 05/09/19 History Simvastatin [Zocor] 40 mg PO AC-SUPPER 11/24/15 05/09/19 History Hydrochlorothiazide 12.5 mg PO BID 12/15/18 05/09/19 History Insulin Aspart [NovoLOG Flexpen] 10 units SQ AC-LUNCH 12/15/18 05/09/19 History Insulin Aspart [NovoLOG Flexpen] 20 units SQ BID 12/15/18 05/09/19 History Insulin Detemir (Levemir) [Levemir] 45 unit SQ QAM 12/15/18 05/09/19 History Pantoprazole [Protonix] 40 mg PO DAILY 05/09/19 05/09/19 History Allergies Allergy/AdvReac Type Severity Reaction Status Date / Time blue dye Allergy Severe Rash/Hives Verified 05/09/19 10:07 codeine Allergy Itching Verified 05/09/19 10:07 naproxen sodium [From Aleve] Allergy Rash/Hives Verified 05/09/19 10:07 naloxegol [From Movantik] AdvReac Nausea & Verified 05/09/19 10:07 Vomiting Physical Exam Vitals: Vital Signs Temp Pulse Pulse Pulse Resp BP BP 05/09/19 16:00 97.9 F 80 18 147/85 05/09/19 11:53 98.3 F 83 16 146/90 05/09/19 10:47 62 18 147/94 05/09/19 10:28 75 05/09/19 09:25 89 05/09/19 09:15 88 05/09/19 08:58 98.1 F 90 18 141/80 Pulse Ox 05/09/19 16:00 95 05/09/19 11:53 96 05/09/19 10:47 99 05/09/19 10:28 05/09/19 09:25 05/09/19 09:15 05/09/19 08:58 98 Intake and Output 05/09/19 05/09/19 05/09/19 06:59 14:59 22:59 Other: Voiding Method Toilet Weight 90.718 kg GEN. APPEARANCE: alert, in no apparent distress HEAD EXAM: atraumatic, normocephalic, normal inspection EYE EXAM: PERRLA ENT EXAM: normal exam, mucous membranes moist NECK EXAM: No thyromegaly. No lymphadenopathy RESPIRATORY EXAM: Decreased air entry bilaterally. Few crackles at the lower lung bases on both sides CARDIOVASCULAR EXAM: S1 and S2 heard. Nausea and sounds. GI/ABDOMINAL EXAM: Abdomen is soft. Mild tenderness in the epigastric area. Nondistended. Normal bowel sounds. EXTREMITIES EXAM: No pedal edema. NEUROLOGICAL EXAM: alert, oriented X3, no focal deficits PSYCHIATRIC EXAM: normal affect, normal mood SKIN EXAM: warm, dry, intact, normal color. Absent: rash Results CBC & Chem 7: 05/09/19 09:20 05/09/19 09:20 Labs: Abnormal Lab Results - Last 24 Hours (Table) 05/09/19 05/09/19 05/09/19 Range/Units : 09:20 11:00 WBC 11.4 H (3.8-10.6) k/uL Neutrophils # 8.9 H (1.3-7.7) k/uL BUN 27 H (9-20) mg/dL Glucose 173 H (74-99) mg/dL POC Glucose (mg/dL) (75-99) mg/dL Urine Protein 1+ H (Negative) Urine Glucose (UA) 3+ H (Negative) Urine Mucus Rare H (None) /hpf 05/09/19 Range/Units 11:56 WBC (3.8-10.6) k/uL Neutrophils # (1.3-7.7) k/uL BUN (9-20) mg/dL Glucose (74-99) mg/dL POC Glucose (mg/dL) 135 H (75-99) mg/dL Urine Protein (Negative) Urine Glucose (UA) (Negative) Urine Mucus (None) /hpf Thrombosis Risk Factor Assmnt - Choose All That Apply Any of the Below Risk Factors Present?: Yes Each Factor Represents 1 point: Obesity (BMI >25) Other Risk Factors: Yes Each Risk Factor Represents 2 Points: Age 61-74 years Other congenital or acquired thrombophilia - If yes, enter type in comment: No Thrombosis Risk Factor Assessment Total Risk Factor Score: 3 Thrombosis Risk Factor Assessment Level: Moderate Risk Assessment and Plan Assessment: ASSESSMENT Epigastric pain - differential diagnosis : Acute gastritis vs ACS Poorly controlled type 2 diabetes mellitus Diabetic nephropathy Diabetic neuropathy Hypertension Hyperlipidemia History of CVA/TIA History of nephrolithiasis Hiatal hernia 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 Patient is kept nothing by mouth. We'll give him IV fluids for hydration. We'll start him on PPIs. Explained to him that it might be acute gastritis and he might also be having early symptoms of gastroparesis because of his poorly controlled type 2 diabetes mellitus. Cardiology has been consulted and an echocardiogram done this morning with results pending. We'll continue with the rest of his current medication regimen. Further recom mendations to follow depending on the progress of the patient.
[2019-05-09] MEDS: ATORVASTATIN 20 MG TAB PO SCH (18:14)
[2019-05-09 20:06] LABS: Glucose,Whole Blood 155 mg/dL (75-99)
[2019-05-09] MEDS: HYDROCHLOROTHIAZIDE 12.5 MG CAP PO SCH (20:39)
[2019-05-09] MEDS: LISINOPRIL 20 MG TAB PO SCH (20:39)
[2019-05-09] MEDS: INSULIN ASPART (NovoLOG) 100 UNIT/ML VIAL SQ SCH (20:42)
[2019-05-09] MEDS: NITROGLYCERIN SL TABS 0.4 MG TAB SUBLINGUAL PRN ×3 (22:41→22:53)
[2019-05-10] MEDS: NITROGLYCERIN SL TABS 0.4 MG TAB SUBLINGUAL PRN ×2 (00:06→00:11)
[2019-05-10] MEDS ORDERED: MAG HYDROX/AL HYDROX/SIMETH 30 ML CUP PO PRN (00:31)
[2019-05-10] MEDS ORDERED: MAG HYDROX/AL HYDROX/SIMETH 30 ML, HYOSCYAMINE ELIXIR 10 ML, CIMETIDINE HCL 300 MG, LID... PO ONE ×4 (00:32)
[2019-05-10 05:02] LABS: Basophils # (A) 0.2 k/uL (0-0.2); Basophils % (A) 1 %; Eosinophils # (A) 0.3 k/uL (0-0.7); Eosinophils % (A) 3 %; HGB 16.1 gm/dL (13.0-17.5); Lymphocytes % (A) 17 %; MCH 31.9 pg (25.0-35.0); MCHC 34.2 g/dL (31.0-37.0); MCV 93.4 fL (80.0-100.0); Mean Platelet Volume 7.2; Monocytes # (A) 0.6 k/uL (0-1.0); Monocytes % (A) 6 %; Neutrophils # (A) 8.2 k/uL (1.3-7.7); Neutrophils % (A) 71 %; Platelet Count 279 k/uL (150-450); RBC 5.03 m/uL (4.30-5.90); RDW 13.4 % (11.5-15.5); WBC 11.5 k/uL (3.8-10.6)
[2019-05-10 05:13] LABS: Calcium 9.4 mg/dL (8.4-10.2); Potassium 4.3 mmol/L (3.5-5.1)
[2019-05-10] MEDS ORDERED: HEPARIN SODIUM,PORCINE 5,000 UNIT/ML 1 ML VIAL IV STA (05:37)
[2019-05-10 07:00] LABS: Glucose,Whole Blood 201 mg/dL (75-99)
[2019-05-10] MEDS ORDERED: MORPHINE SULFATE 2 MG/ML SYRINGE IM STA (07:02)
[2019-05-10] MEDS: ASPIRIN 325 MG TAB PO SCH (07:34)
[2019-05-10] MEDS: LISINOPRIL 20 MG TAB PO SCH ×2 (07:34→20:05)
[2019-05-10] MEDS: HYDROCHLOROTHIAZIDE 12.5 MG CAP PO SCH ×2 (07:34→20:05)
[2019-05-10] MEDS: PANTOPRAZOLE 40 MG TABLET PO SCH (07:34)
[2019-05-10] MEDS: INSULIN ASPART (NovoLOG) 100 UNIT/ML VIAL SQ SCH ×3 (07:34→16:54)
[2019-05-10] MEDS: INSULIN DETEMIR (LEVEMIR) 100 UNIT/ML SYR SQ SCH (07:35)
[2019-05-10 08:13] VITALS: RESP 18
--- NOTE | 2019-05-10 08:24 | P.PN ---
Subjective Progress Note Date: 05/10/19 This is a 63-year-old gentleman was admitted with complaints of chest and epigastric pain. The pain seemed to be more centered in the epigastrium. His cardiac enzymes are negative. Echo Cardigan showed normal LV function. It appears that his pains may be related to hiatal hernia and reflux. A surgical consult may be considered. We'll also schedule him for a dobutamine echocardiogram to rule out any underlying ischemic heart disease. This could be done as an outpatient. Objective - Vital Signs Vital signs: Vital Signs Temp 98.4 F 05/10/19 08:00 Pulse 94 05/10/19 08:00 Resp 18 05/10/19 08:00 BP 143/84 05/10/19 08:00 Pulse Ox 96 05/10/19 08:00 Intake & Output 05/09/19 05/10/19 05/10/19 18:59 06:59 18:59 Intake Total 58.71 69.541 Balance 58.71 69.541 Weight 90.718 kg Intake: Intake, IV Titration 58.71 59.541 Amount Heparin Sod,Pork in 0.45% 58.71 59.541 NaCl 25,000 unit In 0.45 % NaCl 1 250ml.bag @ 11 UNITS/KG/HR 9.979 mls/hr IV .Q24H [facility] Rx#: [id number] Oral 10 Other: Voiding Method Toilet Toilet # Voids 1 - Exam GENERAL EXAM: Patient is alert and oriented and doesn't appear to be in any acute distress HEENT: Normocephalic. Normal reaction of pupils, equal size, normal range of extraocular motion. No erythema or exudates in the throat. NECK: No masses, no nuchal rigidity. CHEST: No chest wall deformity. LUNGS: Equal air entry with no crackles or wheeze. HEART: S1 and S2 normal with no audible mumurs or gallops. Regular rhythm, femorals equal on both sides.. ABDOMEN: Epigastric tenderness SKIN: No rashes CENTRAL NERVOUS SYSTEM: No focal deficits. EXTREMITIES: No cyanosis, clubbing or edema. - Labs CBC & Chem 7: 05/10/19 04:44 05/10/19 04:44 Labs: Abnormal Lab Results - Last 24 Hours (Table) 05/09/19 05/09/19 05/09/19 Range/Units 09:20 09:20 11:00 WBC 11.4 H (3.8-10.6) k/uL Neutrophils # 8.9 H (1.3-7.7) k/uL APTT (22.0-30.0) sec BUN 27 H (9-20) mg/dL Creatinine (0.66-1.25) mg/dL Glucose 173 H (74-99) mg/dL POC Glucose (mg/dL) (75-99) mg/dL HDL Cholesterol (40-60) mg/dL Urine Protein 1+ H (Negative) Urine Glucose (UA) 3+ H (Negative) Urine Mucus Rare H (None) /hpf 05/09/19 05/09/19 05/09/19 Range/Units 11:56 16:02 16:34 WBC (3.8-10.6) k/uL Neutrophils # (1.3-7.7) k/uL APTT 49.5 H (22.0-30.0) sec BUN (9-20) mg/dL Creatinine (0.66-1.25) mg/dL Glucose (74-99) mg/dL POC Glucose (mg/dL) 135 H 243 H (75-99) mg/dL HDL Cholesterol (40-60) mg/dL Urine Protein (Negative) Urine Glucose (UA) (Negative) Urine Mucus (None) /hpf 05/09/19 05/09/19 05/10/19 Range/Units 20:05 22:06 04:44 WBC (3.8-10.6) k/uL Neutrophils # (1.3-7.7) k/uL APTT 80.6 H 37.3 H (22.0-30.0) sec BUN (9-20) mg/dL Creatinine (0.66-1.25) mg/dL Glucose (74-99) mg/dL POC Glucose (mg/dL) 155 H (75-99) mg/dL HDL Cholesterol (40-60) mg/dL Urine Protein (Negative) Urine Glucose (UA) (Negative) Urine Mucus (None) /hpf 05/10/19 05/10/19 05/10/19 Range/Units 04:44 04:44 06:58 WBC 11.5 H (3.8-10.6) k/uL Neutrophils # 8.2 H (1.3-7.7) k/uL APTT (22.0-30.0) sec BUN 24 H (9-20) mg/dL Creatinine 1.30 H (0.66-1.25) mg/dL Glucose 235 H (74-99) mg/dL POC Glucose (mg/dL) 201 H (75-99) mg/dL HDL Cholesterol 34 L (40-60) mg/dL Urine Protein (Negative) Urine Glucose (UA) (Negative) Urine Mucus (None) /hpf Assessment and Plan (1) Epigastric pain Current Visit: Yes Status: Acute Code(s): R10.13 - EPIGASTRIC PAIN SNOMED Code(s): 04677624 (2) Chest pain Current Visit: Yes Status: Acute Code(s): R07.9 - CHEST PAIN, UNSPECIFIED SNOMED Code(s): 01695684 (3) Hiatal hernia Current Visit: Yes Status: Acute Code(s): K44.9 - DIAPHRAGMATIC HERNIA WITHOUT OBSTRUCTION OR GANGRENE SNOMED Code(s): 66036545 (4) Hypertension Current Visit: Yes Status: Acute Code(s): I10 - ESSENTIAL (PRIMARY) HYPERTENSION SNOMED Code(s): 82595124 (5) Insulin dependent diabetes mellitus Current Visit: Yes Status: Acute Code(s): E11.9 - TYPE 2 DIABETES MELLITUS WITHOUT COMPLICATIONS; Z79.4 - DETENTION (CURRENT) USE OF INSULIN SNOMED Code(s): 25051685 (6) Smoking Current Visit: Yes Status: Acute Code(s): F17.200 - NICOTINE DEPENDENCE, UNSPECIFIED, UNCOMPLICATED SNOMED Code(s): 04551088 Plan: Patient's still having some epigastric distress. Cardiac enzymes are negative. Echocardiogram showed normal LV function. From cardiac standpoint, patient could be discharged home. To be constricted for outpatient stress echo
[2019-05-10 11:46] LABS: Glucose,Whole Blood 189 mg/dL (75-99)
[2019-05-10] MEDS: HYDROcodone/APAP 7.5-325MG 1 EACH TAB PO PRN ×2 (12:34→21:30)
--- NOTE | 2019-05-10 16:24 | P.PN ---
Subjective Progress Note Date: 05/10/19 Principal diagnosis: Acute gastritis, acute COPD exacerbation Mr. Colbert is a 63-year-old male with a past medical history of poorly controlled type 2 diabetes mellitus, hypertension, hearing disorder, hypertension, hyperlipidemia, nephrolithiasis coming into the hospital with a chief complaint of epigastric pain for the past 1-2 days. Patient states that he has history of GERD and hiatal hernia and he is on proton pump inhibitors that help him. But for the past 1 day patient was feeling very nauseous and he also threw up 3-4 times earlier this morning that prompted him to come to the emergency department. Patient denies having any hematemesis. His pain is mostly midep igastric area sometimes radiates to the right upper quadrant. Patient denies having any blood in his stool, no diarrhea or constipation. Patient denies having any chest pain or difficulty in breathing. Patient denies having any orthopnea PND or lower extremity swelling. He has history of type 2 diabetes mellitus that is poorly controlled as his hemoglobin A1c runs around 9 most of the times. He has long-term complications of diabetes in the form of neuropathy and nephropathy. Patient also has history of smoking he used to to 2 packs a day but for the past few months he has been doing less than a pack a day. Patient denies having any sick contacts. Patient denies having any headaches, blurring of vision, loss of consciousness. No ear discharge. No sore throat. No neck stiffness. No joint swelling or back pain. In the ER patient had a chest x-ray and EKG that are within normal limits. Patient had CBC and her lytes checked that were within normal limits. He also had a UA that is positive for 3+ glucose present but negative for leukocyte esterase or nitrites. On 05/10/2019- patient still complains of pain in the epigastric area. He has been started on PPIs and minimal relief. Patient has been coughing up, productive with yellowish colored sputum. Patient has history of chronic nicotine dependence. He thinks that all of the secretions in his lungs , and breaking up and he is able to cough up the sputum. He complains of mild wheezing. He has mild difficulty in breathing. Patient denies having any palpitations. He denies having any fevers chills or rigors. No nausea or vomiting. No constipation or diarrhea. No dysuria or hematuria. Active Medications Hydrocodone Bitart/Acetaminophen ([place] 7.5-325) 1 each PO Q6H PRN PRN Reason: Pain Last Admin: 05/10/19 12:34 Dose: 1 each Documented by: Al Hydroxide/Mg Hydroxide (Maalox) 30 ml PO Q4HR PRN PRN Reason: Dyspepsia Albuterol/Ipratropium (Duoneb 0.5 Mg-3 Mg/3 Ml Soln) 3 ml INHALATION RT-Q4H [facility] Aspirin (Aspirin) 325 mg PO DAILY [facility] Last Admin: 05/10/19 07:34 Dose: 325 mg Documented by: Atorvastatin Calcium (Lipitor) 20 mg PO AC-SUPPER [facility] Last Admin: 05/09/19 18:14 Dose: 20 mg Documented by: Hydrochlorothiazide (Hydrodiuril) 12.5 mg PO BID [facility] Last Admin: 05/10/19 07:34 Dose: 12.5 mg Documented by: Azithromycin 500 mg/ Sodium (Chloride) 250 mls @ 250 mls/hr IVPB DAILY [facility] Stop: 05/13/19 16:16 Insulin Aspart (Novolog) 10 unit SQ AC-LUNCH [facility] Last Admin: 05/10/19 13:16 Dose: Not Given Documented by: Insulin Aspart (Novolog) 20 unit SQ AC-BID [facility] Last Admin: 05/10/19 07:34 Dose: Not Given Documented by: Insulin Detemir (Levemir) 45 unit SQ QAM [facility] Last Admin: 05/10/19 07:35 Dose: 20 unit Documented by: Lisinopril (Zestril) 20 mg PO BID [facility] Last Admin: 05/10/19 07:34 Dose: 20 mg Documented by: Nitroglycerin (Nitrostat) 0.4 mg SUBLINGUAL Q5M PRN PRN Reason: Chest Pain Last Admin: 05/10/19 00:11 Dose: 0.4 mg Documented by: Pantoprazole Sodium (Protonix) 40 mg PO AC-BRKFST [facility] Last Admin: 05/10/19 07:34 Dose: 40 mg Documented by: Prednisone () 50 mg PO DAILY [facility] Stop: 05/15/19 16:16 Objective - Vital Signs Vital signs: Vital Signs Temp 98.2 F 05/10/19 16:00 Pulse 83 05/10/19 16:00 Resp 18 09/22/19 16:00 BP 133/77 05/10/19 16:00 Pulse Ox 95 05/10/19 16:00 Intake & Output 05/09/19 05/10/19 05/10/19 18:59 06:59 18:59 Intake Total 58.71 69.541 Balance 58.71 69.541 Weight 90.718 kg Intake: Intake, IV Titration 58.71 59.541 Amount Heparin Sod,Pork in 0.45% 58.71 59.541 NaCl 25,000 unit In 0.45 % NaCl 1 250ml.bag @ 11 UNITS/KG/HR 9.979 mls/hr IV .Q24H [facility] Rx#: [id number] Oral 10 Other: Voiding Method Toilet Toilet Toilet # Voids 1 2 - Exam GEN. APPEARANCE: alert, in no apparent distress HEAD EXAM: atraumatic, normocephalic, normal inspection EYE EXAM: PERRLA ENT EXAM: normal exam, mucous membranes moist NECK EXAM: No thyromegaly. No lymphadenopathy RESPIRATORY EXAM: Decreased air entry bilaterally. Coarse breath sounds in all lung silva. Bilateral end expiratory wheeze. CARDIOVASCULAR EXAM: S1 and S2 heard. Nausea and sounds. GI/ABDOMINAL EXAM: Abdomen is soft. Mild tenderness in the epigastric area. Nondistended. Normal bowel sounds. EXTREMITIES EXAM: No pedal edema. NEUROLOGICAL EXAM: alert, oriented X3, no focal deficits PSYCHIATRIC EXAM: normal affect, normal mood SKIN EXAM: warm, dry, intact, normal color. Absent: rash - Labs CBC & Chem 7: 05/10/19 04:44 05/10/19 04:44 Labs: Abnormal Lab Results - Last 24 Hours (Table) 05/09/19 05/09/19 05/09/19 Range/Units 16:02 16:34 20:05 WBC (3.8-10.6) k/uL Neutrophils # (1.3-7.7) k/uL APTT 49.5 H (22.0-30.0) sec BUN (9-20) mg/dL Creatinine (0.66-1.25) mg/dL Glucose (74-99) mg/dL POC Glucose (mg/dL) 243 H 155 H (75-99) mg/dL HDL Cholesterol (40-60) mg/dL 05/09/19 05/10/19 05/10/19 Range/Units 22:06 04:44 04:44 WBC 11.5 H (3.8-10.6) k/uL Neutrophils # 8.2 H (1.3-7.7) k/uL APTT 80.6 H 37.3 H (22.0-30.0) sec BUN (9-20) mg/dL Creatinine (0.66-1.25) mg/dL Glucose (74-99) mg/dL POC Glucose (mg/dL) (75-99) mg/dL HDL Cholesterol (40-60) mg/dL 05/10/19 05/10/19 05/10/19 Range/Units 04:44 06:58 11:44 WBC (3.8-10.6) k/uL Neutrophils # (1.3-7.7) k/uL APTT (22.0-30.0) sec BUN 24 H (9-20) mg/dL Creatinine 1.30 H (0.66-1.25) mg/dL Glucose 235 H (74-99) mg/dL POC Glucose (mg/dL) 201 H 189 H (75-99) mg/dL HDL Cholesterol 34 L (40-60) mg/dL Assessment and Plan Assessment: ASSESSMENT Epigastric pain - differential diagnosis : Acute gastritis vs ACS Acute COPD exacerbation Poorly controlled type 2 diabetes mellitus Diabetic nephropathy Diabetic neuropathy Hypertension Hyperlipidemia History of CVA/TIA History of nephrolithiasis Hiatal hernia 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 Patient will be started on breathing treatments, steroids and azithromycin. Heparin drip has been discontinued by cardiology . We'll give him IV fluids for hydration. We'll start him on PPIs. Echocardiogram done, results pending. As the patient still continues to have epigastric pain and he thinks it's because of his hiatal hernia, we will consult surgery. Continue with the rest of his current medication regimen. Further recommendations to follow depending on the progress of the patient.
[2019-05-10 16:42] LABS: Glucose,Whole Blood 148 mg/dL (75-99)
[2019-05-10] MEDS: ATORVASTATIN 20 MG TAB PO SCH (16:54)
[2019-05-10] MEDS: predniSONE 50 MG TAB PO SCH (17:14)
[2019-05-10] MEDS: AZITHROMYCIN 500 MG in SODIUM CHLORIDE 0.9% 250 ML IVPB SCH (17:14)
[2019-05-10] MEDS ORDERED: IPRATROPIUM-ALBUTEROL 3 ML NEB INHALATION PRN (19:12)
[2019-05-10] MEDS: IPRATROPIUM-ALBUTEROL 3 ML NEB INHALATION SCH (19:15)
[2019-05-10] MEDS ORDERED: IPRATROPIUM-ALBUTEROL 3 ML NEB INHALATION SCH (20:00)
[2019-05-10 20:14] LABS: Glucose,Whole Blood 180 mg/dL (75-99)
[2019-05-11] MEDS ORDERED: ENOXAPARIN 40 MG/0.4 ML SYRINGE SQ SCH (00:15)
[2019-05-11] MEDS: HYDROcodone/APAP 7.5-325MG 1 EACH TAB PO PRN (02:13)
[2019-05-11] MEDS: ENOXAPARIN 40 MG/0.4 ML SYRINGE SQ SCH (04:27)
[2019-05-11 06:19] LABS: Basophils # (A) 0.1 k/uL (0-0.2); Basophils % (A) 0 %; Eosinophils % (A) 0 %; HCT 47.4 % (39.0-53.0); HGB 15.6 gm/dL (13.0-17.5); Lymphocytes % (A) 7 %; MCH 30.9 pg (25.0-35.0); MCHC 32.9 g/dL (31.0-37.0); MCV 93.8 fL (80.0-100.0); Mean Platelet Volume 6.8; Monocytes # (A) 0.5 k/uL (0-1.0); Monocytes % (A) 3 %; Neutrophils # (A) 13.3 k/uL (1.3-7.7); Neutrophils % (A) 89 %; Platelet Count 269 k/uL (150-450); RBC 5.05 m/uL (4.30-5.90); RDW 13.2 % (11.5-15.5)
[2019-05-11 06:52] LABS: Glucose,Whole Blood 228 mg/dL (75-99)
[2019-05-11 07:08] LABS: Calcium 9.2 mg/dL (8.4-10.2); Potassium 4.7 mmol/L (3.5-5.1)
[2019-05-11] MEDS: IPRATROPIUM-ALBUTEROL 3 ML NEB INHALATION SCH ×4 (07:48→19:56)
[2019-05-11] MEDS: AZITHROMYCIN 500 MG in SODIUM CHLORIDE 0.9% 250 ML IVPB SCH (08:38)
[2019-05-11] MEDS: INSULIN DETEMIR (LEVEMIR) 100 UNIT/ML SYR SQ SCH (08:39)
[2019-05-11] MEDS: ASPIRIN 325 MG TAB PO SCH (08:39)
[2019-05-11] MEDS: HYDROCHLOROTHIAZIDE 12.5 MG CAP PO SCH ×2 (08:39→20:56)
[2019-05-11] MEDS: LISINOPRIL 20 MG TAB PO SCH ×2 (08:39→20:56)
[2019-05-11] MEDS: predniSONE 50 MG TAB PO SCH (08:39)
[2019-05-11] MEDS: INSULIN ASPART (NovoLOG) 100 UNIT/ML VIAL SQ SCH ×3 (08:39→17:18)
[2019-05-11] MEDS: PANTOPRAZOLE 40 MG TABLET PO SCH (10:15)
--- NOTE | 2019-05-11 10:17 | P.PN ---
Subjective This is a pleasant 63-year-old male past medical history significant for hypertension, dyslipidemia, diabetes mellitus and TIA past. He also has chronic daily nicotine dependent as well as regular marijuana use. He is seen and examined sitting up in bed in no acute distress. He continues to have intermittent episodes of epigastric discomfort that are relieved by Yeaddiss. He has mild epigastric tenderness on palpation. He denies chest discomfort, shortness of breath, dizziness or palpitations. Blood pressure 118/71 heart rate 88 afebrile maintaining oxygen saturation on room air. Laboratory data reviewed, WBC 15, hemoglobin 15.6, platelets 269, sodium 133, potassium 4.7, creatinine 1.24. Currently maintained on aspirin 325 mg daily, atorvastatin 20 mg daily, hydrochlorothiazide 12.5 mg twice a day and lisinopril 20 mg twice a day. GENERAL: Well-appearing, well-nourished and in no acute distress. NECK: Supple without JVD or thyromegaly. LUNGS: Breath sounds clear to auscultation bilaterally. Respiration equal and unlabored. No wheezes, rales or rhonchi. HEART: Regular rate and rhythm without murmurs, rubs or gallops. S1 and S2 heard. EXTREMITIES: Normal range of motion, no edema. No clubbing or cyanosis. Periphe ral pulses intact. ASSESSMENT Epigastric pain Chest pain, an acute coronary event has been ruled out. Hiatal hernia Hypertension Dyslipidemia Diabetes mellitus Chronic nicotine dependence PLAN Decrease aspirin to 81 mg daily. Stable from a cardiac perspective. Ongoing medical management. Symptoms likely related to hiatal hernia. We will pursue stress testing as an outpatient. We will continue to follow as needed. Please feel free to call with further questions or concerns. Nurse Practitioner note has been reviewed, I agree with a documented findings and plan of care. Patient was seen and examined. Objective - Vital Signs Vital signs: Vital Signs Temp 97.9 F 05/11/19 07:50 Pulse 80 05/11/19 07:57 Resp 18 05/11/19 07:50 BP 118/71 05/11/19 07:50 Pulse Ox 97 05/11/19 07:50 Intake & Output 05/10/19 05/11/19 05/11/19 18:59 06:59 18:59 Intake Total 0 Balance 0 Intake: Oral 0 Other: Voiding Method Toilet Toilet # Voids 2 - Labs CBC & Chem 7: 09/23/19 05:38 05/11/19 05:38 Labs: Abnormal Lab Results - Last 24 Hours (Table) 05/10/19 05/10/19 05/10/19 Range/Units 11:44 16:40 20:12 WBC (3.8-10.6) k/uL Neutrophils # (1.3-7.7) k/uL Sodium (137-145) mmol/L Carbon Dioxide (22-30) mmol/L BUN (9-20) mg/dL Glucose (74-99) mg/dL POC Glucose (mg/dL) 189 H 148 H 180 H (75-99) mg/dL 05/11/19 05/11/19 05/11/19 Range/Units 05:38 05:38 06:50 WBC 15.0 H (3.8-10.6) k/uL Neutrophils # 13.3 H (1.3-7.7) k/uL Sodium 133 L (137-145) mmol/L Carbon Dioxide 20 L (22-30) mmol/L BUN 27 H (9-20) mg/dL Glucose 273 H (74-99) mg/dL POC Glucose (mg/dL) 228 H (75-99) mg/dL
[2019-05-11 11:37] LABS: Glucose,Whole Blood 210 mg/dL (75-99)
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
--- NOTE | 2019-05-11 16:16 | FL ---
EXAMINATION: Cervical and Thoracic Esophagram DATE OF EXAM: 05/11/2019 CLINICAL INDICATION: 63-year-old male with dysphasia, complaining of infra sternal pain with bloating water getting stuck for a few months. COMPARISON: 09/15/2018 Total Fluoroscopy Time: 2 minutes 9 seconds. Total images: 44 FINDINGS: The swallowing mechanism is normal and hypopharyngeal anatomy is preserved. C5-C7 ACDF. Right-sided V P shunt catheter seen. The cervical and thoracic portions have a normal course and caliber. However, moderate tertiary peris talsis is demonstrated and there are blunted secondary stripping waves when the patient is prone/supi ne resulting in prolonged time to clearance from the esophagus. The mucosa is normal and no persistent filling defect is encountered. There is a small to moderate-sized sliding hiatal hernia demonstrated in the left decubitus view and a single episode of moderate gastroesophageal reflux in this position. IMPRESSION: 1. Small to moderate-sized sliding hiatal hernia. 2. A single spontaneous episode of moderate gastroesophageal reflux when the patient was in the left decubitus position. 3. Moderate dysmotility with delayed clearance of contrast from esophagus with the patient is supine/ prone.
[2019-05-11 16:24] LABS: Glucose,Whole Blood 384 mg/dL (75-99)
[2019-05-11] MEDS: ATORVASTATIN 20 MG TAB PO SCH (17:18)
[2019-05-11 19:55] LABS: Glucose,Whole Blood 316 mg/dL (75-99)
[2019-05-12 00:02] LABS: Glucose,Whole Blood 237 mg/dL (75-99)
[2019-05-12 04:54] LABS: Glucose,Whole Blood 215 mg/dL (75-99)
[2019-05-12] MEDS: ENOXAPARIN 40 MG/0.4 ML SYRINGE SQ SCH (05:07)
[2019-05-12] MEDS: HYDROcodone/APAP 7.5-325MG 1 EACH TAB PO PRN (05:53)
[2019-05-12 06:38] LABS: Glucose,Whole Blood 201 mg/dL (75-99)
[2019-05-12 07:07] LABS: Mean Platelet Volume 6.5; Platelet Count 268 k/uL (150-450)
[2019-05-12] MEDS: IPRATROPIUM-ALBUTEROL 3 ML NEB INHALATION SCH ×2 (07:18→11:37)
[2019-05-12] MEDS ORDERED: ASPIRIN 81 MG PO SCH (09:00)
[2019-05-12] MEDS: predniSONE 50 MG TAB PO SCH (09:25)
[2019-05-12] MEDS: HYDROCHLOROTHIAZIDE 12.5 MG CAP PO SCH (09:25)
[2019-05-12] MEDS: PANTOPRAZOLE 40 MG TABLET PO SCH (09:25)
[2019-05-12] MEDS: INSULIN DETEMIR (LEVEMIR) 100 UNIT/ML SYR SQ SCH (09:25)
[2019-05-12] MEDS: LISINOPRIL 20 MG TAB PO SCH (09:25)
[2019-05-12] MEDS: INSULIN ASPART (NovoLOG) 100 UNIT/ML VIAL SQ SCH ×2 (09:26→12:18)
[2019-05-12] MEDS: AZITHROMYCIN 500 MG in SODIUM CHLORIDE 0.9% 250 ML IVPB SCH (09:29)
[2019-05-12 11:14] VITALS: BP 121/78; TEMP 97.8
[2019-05-12 11:40] LABS: Glucose,Whole Blood 186 mg/dL (75-99)
[2019-05-12 11:52] VITALS: PULSE 84
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
[2019-05-13] MEDS ORDERED: AZITHROMYCIN 500 MG TAB PO SCH (09:00)
--- NOTE | 2019-05-13 09:53 | ECHOF ---
Referral Reason:chest pain MEASUREMENTS -------- HEIGHT: 172.7 cm WEIGHT: 90.7 kg BP: 147/94 RVIDd: 3.4 cm (< 3.3) IVSd: 1.2 cm (0.6 - 1.1) LVIDd: 4.6 cm (3.9 - 5.3) LVPWd: 1.2 cm (0.6 - 1.1) IVSs: 1.8 cm LVIDs: 3.0 cm LVPWs: 1.4 cm LA Diam: 3.5 cm (2.7 - 3.8) LAESV Index (A-L): 26.04 ml/m Ao Diam: 3.4 cm (2.0 - 3.7) AV Cusp: 2.2 cm (1.5 - 2.6) MV EXCURSION: 15.618 mm (> 18.000) MV EF SLOPE: 41 mm/s (70 - 150) EPSS: 0.7 cm MV E Collins: 0.79 m/s MV DecT: 267 ms MV A Collins: 0.98 m/s MV E/A Ratio: 0.81 TAPSE: 18.96 mm FINDINGS -------- Sinus rhythm. This was a technically adequate study. The left ventricular size is normal. There is borderline concentric left ventricular hypertrophy. Overall left ventricular systolic function is normal with, an EF between 60 - 65 %. The diastolic filling pattern is normal for the age of the patient 11.66. The right ventricle is mildly enlarged. Normal LA size by volume 22+/-6 ml/m2. The right atrium is normal in size. Interatrial and interventricular septum intact. The aortic valve is trileaflet and appears structurally normal. Mild mitral annular calcification present. The tricuspid valve appears structurally normal. The pulmonic valve was not well visualized. The aortic root size is normal. Normal inferior vena cava with normal inspiratory collapse consistent with estimated right atrial pre ssure of 5 mmHg. The inferior vena cava is mildly dilated. There is no pericardial effusion. CONCLUSIONS -------- 1. Sinus rhythm. 2. This was a technically adequate study. 3. The left ventricular size is normal. 4. There is borderline concentric left ventricular hypertrophy. 5. Overall left ventricular systolic function is normal with, an EF between 60 - 65 %. 6. The diastolic filling pattern is normal for the age of the patient 11.66 7. The right ventricle is mildly enlarged. 8. Normal LA size by volume 22+/-6 ml/m2. 9. The right atrium is normal in size. 10. Interatrial and interventricular septum intact. 11. The aortic valve is trileaflet and appears structurally normal. 12. Mild mitral annular calcification present. 13. The tricuspid valve appears structurally normal. 14. The pulmonic valve was not well visualized. 15. The aortic root size is normal. 16. Normal inferior vena cava with normal inspiratory collapse consistent with estimated right atrial pressure of 5 mmHg. 17. The inferior vena cava is mildly dilated. 18. There is no pericardial effusion. CUST[employer]ER [employer]VOCATE: Yumiko Hopkins RDCS
== END 2019-05-12 13:28 | disposition home or self-care (01) | DRG 392 ==
LOC: EC 08:42 → 1SOBS 11:13 → OBSVTOIN 05-11 14:23
PROVIDERS: ADMIT Family Medicine; ATTEND Family Medicine
DX: K44.9 Diaphragmatic hernia without obstruction or gangrene (principal); J44.1 Chronic obstructive pulmonary disease with (acute) exacerbation; E11.21 Type 2 diabetes mellitus with diabetic nephropathy; E11.40 Type 2 diabetes mellitus with diabetic neuropathy, unspecified; E11.65 Type 2 diabetes mellitus with hyperglycemia; E78.5 Hyperlipidemia, unspecified; F17.210 Nicotine dependence, cigarettes, uncomplicated; F32.9 Major depressive disorder, single episode, unspecified; F41.9 Anxiety disorder, unspecified; H91.90 Unspecified hearing loss, unspecified ear; I10 Essential (primary) hypertension; K21.9 Gastro-esophageal reflux disease without esophagitis; K29.00 Acute gastritis without bleeding; K58.9 Irritable bowel syndrome, unspecified; R13.10 Dysphagia, unspecified; Z79.4 Long term (current) use of insulin; Z79.82 Long term (current) use of aspirin; Z79.899 Other long term (current) drug therapy; Z86.73 Personal history of transient ischemic attack (TIA), and cerebral infarction without residual deficits; Z87.442 Personal history of urinary calculi; Z98.1 Arthrodesis status; E11.43 Type 2 diabetes mellitus with diabetic autonomic (poly)neuropathy; K31.84 Gastroparesis; Z89.112 Acquired absence of left hand; Z88.6 Allergy status to analgesic agent; Z88.5 Allergy status to narcotic agent; Z88.8 Allergy status to other drugs, medicaments and biological substances
CPT/HCPCS: 36415; 71046; 74220; 80048; 80053; 80061; 81001; 83690; 83735; 83880; 84484; 85025; 85049; 85379; 85610; 85730; 93005; 93306; 94640; 94760; 96365; 96376; 99285

== ENCOUNTER 2019-05-19 18:23 | Observation (INO) | payer BC, MEDICARE ==
[2019-05-19] MEDS ORDERED: SODIUM CHLORIDE 0.9% 1,000 ML IV STA (19:02)
[2019-05-19] MEDS ORDERED: SODIUM CHLORIDE 0.9% 500 ML 500 ML IV STA (19:02)
--- NOTE | 2019-05-19 19:09 | ED ---
General Adult HPI - General Source: patient, EMS Mode of arrival: EMS Limitations: no limitations <Yudi Guardado - Last Filed: 05/19/19 21:15> <Abdirahman Santana - Last Filed: 05/19/19 22:07> - General Chief complaint: Syncope Stated complaint: Syncope Time Seen by Provider: 05/19/19 18:55 - History of Present Illness Initial comments: 63-year-old male patient presents to the emergency department today for ev aluation after experiencing a syncopal episode at home. Patient states that he was sitting in a chair way started to feel weird. Patient states that he went to check his blood sugar in the next he knew his was over him stating that he passed out. states that she saw him trying to check his blood sugar, but he seemed really out of it and confused. States that she went over to assist whe n he slumped over the table. States that she tried to get him into a chair, but they both fell. States that he came to shortly after. They called EMS and he was brought here. Patient states he currently feels okay. He does have a mild chest pain to the lower substernal region. He rates it at a 1 out of 10 on the pain scale. He denies any radiation of the pain through to his back. Denies any stephenie rtness of breath. Denies any abdominal pain, nausea, or vomiting. Upon arrival patient was diaphoretic and hypotensive. Blood sugar in EMS was 120. Patient denies any recent rash, fever, chills, diarrhea, constipation, hematochezia, melena, back pain, numbness, tingling, hematuria, dysuria, urinary urgency, urinary frequency, headache, visual changes, or any other complaints. (Yudi Guardado) - Related Data Home Medications Medication Instructions Recorded Confirmed Lisinopril [Zestril] 20 mg PO BID 11/24/15 05/19/19 Simvastatin [Zocor] 40 mg PO AC-SUPPER 11/24/15 05/19/19 Insulin Aspart [NovoLOG Flexpen] 10 units SQ AC-LUNCH 12/15/18 05/19/19 Insulin Aspart [NovoLOG Flexpen] 20 units SQ AC-BID@0900,1800 12/15/18 05/19/19 Insulin Detemir (Levemir) [Levemir] 45 unit SQ AC-BRKFST 12/15/18 05/19/19 Pantoprazole [Protonix] 40 mg PO DAILY 05/09/19 05/19/19 ALPRAZolam [Xanax] 1 mg PO DAILY PRN 05/19/19 05/19/19 Previous Rx's Medication Instructions Recorded Aspirin 81 mg PO DAILY chew 05/12/19 Allergies Allergy/AdvReac Type Severity Reaction Status Date / Time blue dye Allergy Severe Rash/Hives Verified 05/19/19 19:46 codeine Allergy Itching Verified 05/19/19 19:46 naproxen sodium [From Aleve] Allergy Rash/Hives Verified 05/19/19 19:46 naloxegol [From Movantik] AdvReac Nausea & Verified 05/19/19 19:46 Vomiting Review of Systems ROS Other: All systems not noted in ROS Statement are negative. <Yudi Guardado - Last Filed: 05/19/19 21:15> ROS Other: All systems not noted in ROS Statement are negative. <Abdirahman Santana - Last Filed: 05/19/19 22:07> ROS Statement: Those systems with pertinent positive or pertinent negative responses have been documented in the HPI. Past Medical History Past Medical History: Chest Pain / Angina, CVA/TIA, Diabetes Mellitus, Hearing Disorder / Deafness, Hyperlipidemia, Hypertension Additional Past Medical History / Comment(s): TIA, no residual effects, HX KIDNEY STONE. IBS, HX DIVERTICULITIS. HIATAL HERNIA, perontonial shunt, arthritis History of Any Multi-Drug Resistant Organisms: None Reported Past Surgical History: Bowel Resection, Orthopedic Surgery Additional Past Surgical History / Comment(s): LEFT KNEE ARTHROSCOPIC. SHUNT 0622-3799 R/T PRESSURE IN SKULL. 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, COLONOSCOPY, NECK FUSION disC to 4,5, 6, Past Anesthesia/Blood Transfusion Reactions: No Reported Reaction Past Psychological History: Anxiety, Depression Smoking Status: Current every day smoker Past Alcohol Use History: None Reported Additional Past Alcohol Use History / Comment(s): STARTED SMOKING AT AGE 15 SMOKES 1PPD; Past Drug Use History: Marijuana Additional Drug Use History / Comment(s): occasional use, instructed to hold 24 hrs prior to procedure - Past Family History Mother Family Medical History: Cancer Additional Family Medical History / Comment(s): kidney Father Family Medical History: Cancer Additional Family Medical History / Comment(s): pancreatic <Yudi Guardado Tenisha - Last Filed: 05/19/19 21:15> General Exam Limitations: no limitations General appearance: alert, in no apparent distress, other (Physical well- developed, well-nourished adult male patient in no acute distress. Vital signs upon presentation are temperature 98.3F, pulse 89, respirations 20, blood pressure 89/54, pulse ox 95% on room air.) Eye exam: Present: normal appearance, PERRL, EOMI. Absent: scleral icterus, conjunctival injection, periorbital swelling ENT exam: Present: normal exam, normal oropharynx, mucous membranes moist Respiratory exam: Present: normal lung sounds bilaterally. Absent: respiratory distress, wheezes, rales, rhonchi, stridor Cardiovascular Exam: Present: regular rate, normal rhythm, normal heart sounds. Absent: systolic murmur, diastolic murmur, rubs, gallop, clicks GI/Abdominal exam: Present: soft, normal bowel sounds. Absent: distended, tenderness, guarding, rebound, rigid Neurological exam: Present: alert, oriented X3, CN II-XII intact Psychiatric exam: Present: normal affect, normal mood Skin exam: Present: warm, dry, intact, normal color. Absent: rash <Yudi Guardado Tenisha - Last Filed: 05/19/19 21:15> Course Vital Signs 05/19/19 05/19/19 05/19/19 18:40 19:30 20:30 Temperature 98.3 F Pulse Rate 89 81 87 Respiratory 20 18 18 Rate Blood Pressure 89/54 86/55 97/50 O2 Sat by Pulse 95 99 99 Oximetry 05/19/19 05/19/19 21:00 21:12 Temperature Pulse Rate 87 86 Respiratory 18 18 Rate Blood Pressure 101/61 107/66 O2 Sat by Pulse 98 98 Oximetry EKG Findings - EKG Comments: EKG Findings:: EKG obtained at 1856 shows normal sinus rhythm with a ventricular rate of 84, PA interval 176, QRS duration 78, QT 348, QTC 411. No evidence of ST elevation or depression. <Yudi Guardado Tenisha - Last Filed: 05/19/19 21:15> Medical Decision Making - Lab Data Result diagrams: 05/19/19 18:50 05/19/19 18:50 - Radiology Data Radiology results: report reviewed, image reviewed <Yudi Guardado - Last Filed: 05/19/19 21:15> - Lab Data Result diagrams: 05/19/19 18:50 05/19/19 18:50 <Abdirahman Santana - Last Filed: 05/19/19 22:07> - Medical Decision Making 63-year-old male patient presents to the emergency department today for evaluation after experiencing a syncopal event. Physical examination is unremarkable. He is currently alert and oriented. He is neurologically intact with no focal deficits. Blood pressure upon arrival is low in the 80s systolic. He did have blood pressures down to the 70s systolic. He was given 2.5 L of normal saline and started on an infusion of normal saline. Blood pressures did improve. Labs reviewed and did reveal worsening renal function and leukocytosis with a white count of 14.5. Lactic acid negative. D-dimer negative. Troponin negative. EKG showed a sinus rhythm with no ST elevation or depression. No ectopy. I did discuss findings and results with my attending physician Dr. Santana. He recommends a dose of Rocephin. We will admit for IV hydration and further monitoring. (Yudi Guardado) The patient was seen and examined. All diagnostics were reviewed. The case is discussed with the PA and I agree with the findings as documented. Case also was discussed with Dr. Colby and he is agreeable with admission. (Abdirahman Santana) - Lab Data Lab Results 05/19/19 05/19/19 05/19/19 Range/Units 18:50 18:50 18:50 WBC 14.5 H (3.8-10.6) k/uL RBC 5.09 (4.30-5.90) m/uL Hgb 15.7 (13.0-17.5) gm/dL Hct 47.8 (39.0-53.0) % MCV 93.9 (80.0-100.0) fL MCH 30.8 (25.0-35.0) pg MCHC 32.8 (31.0-37.0) g/dL RDW 13.4 (11.5-15.5) % Plt Count 339 (150-450) k/uL Neutrophils % 77 % Lymphocytes % 14 % Monocytes % 5 % Eosinophils % 2 % Basophils % 4 % Neutrophils # 11.2 H (1.3-7.7) k/uL Lymphocytes # 2.0 (1.0-4.8) k/uL Monocytes # 0.8 (0-1.0) k/uL Eosinophils # 0.3 (0-0.7) k/uL Basophils # 0.6 H (0-0.2) k/uL PT 11.0 (9.0-12.0) sec INR 1.0 (<1.2) APTT 25.3 (22.0-30.0) sec D-Dimer (<0.60) mg/L FEU Sodium 140 (137-145) mmol/L Potassium 5.0 (3.5-5.1) mmol/L Chloride 106 (98-107) mmol/L Carbon Dioxide 21 L (22-30) mmol/L Anion Gap 13 mmol/L BUN 43 H (9-20) mg/dL Creatinine 2.14 H (0.66-1.25) mg/dL Est GFR (CKD-EPI)AfAm 37 (>60 ml/min/1.73 sqM) Est GFR (CKD-EPI)NonAf 32 (>60 ml/min/1.73 sqM) Glucose 117 H (74-99) mg/dL Plasma Lactic Acid Jose Luis (0.7-2.0) mmol/L Calcium 9.7 (8.4-10.2) mg/dL Magnesium 2.2 (1.6-2.3) mg/dL Total Bilirubin 0.8 (0.2-1.3) mg/dL AST 24 (17-59) U/L ALT 25 (21-72) U/L Alkaline Phosphatase 81 (38-126) U/L Troponin I (0.000-0.034) ng/mL Total Protein 7.9 (6.3-8.2) g/dL Albumin 4.5 (3.5-5.0) g/dL Urine Color Urine Appearance (Clear) Urine pH (5.0-8.0) Ur Specific [place] (1.001-1.035) Urine Protein (Negative) Urine Glucose (UA) (Negative) Urine Ketones (Negative) Urine Blood (Negative) Urine Nitrite (Negative) Urine Bilirubin (Negative) Urine Urobilinogen (<2.0) mg/dL Ur Leukocyte Esterase (Negative) Urine RBC (0-5) /hpf Urine WBC (0-5) /hpf Ur Squamous Epith Cells (0-4) /hpf Hyaline Casts (0-2) /lpf Urine Mucus (None) /hpf 05/19/19 05/19/19 05/19/19 Range/Units 18:50 18:50 19:57 WBC (3.8-10.6) k/uL RBC (4.30-5.90) m/uL Hgb (13.0-17.5) gm/dL Hct (39.0-53.0) % MCV (80.0-100.0) fL MCH (25.0-35.0) pg MCHC (31.0-37.0) g/dL RDW (11.5-15.5) % Plt Count (150-450) k/uL Neutrophils % % Lymphocytes % % Monocytes % % Eosinophils % % Basophils % % Neutrophils # (1.3-7.7) k/uL Lymphocytes # (1.0-4.8) k/uL Monocytes # (0-1.0) k/uL Eosinophils # (0-0.7) k/uL Basophils # (0-0.2) k/uL PT (9.0-12.0) sec INR (<1.2) APTT (22.0-30.0) sec D-Dimer 0.34 (<0.60) mg/L FEU Sodium (137-145) mmol/L Potassium (3.5-5.1) mmol/L Chloride (98-107) mmol/L Carbon Dioxide (22-30) mmol/L Anion Gap mmol/L BUN (9-20) mg/dL Creatinine (0.66-1.25) mg/dL Est GFR (CKD-EPI)AfAm (>60 ml/min/1.73 sqM) Est GFR (CKD-EPI)NonAf (>60 ml/min/1.73 sqM) Glucose (74-99) mg/dL Plasma Lactic Acid Jose Luis 1.3 (0.7-2.0) mmol/L Calcium (8.4-10.2) mg/dL Magnesium (1.6-2.3) mg/dL Total Bilirubin (0.2-1.3) mg/dL AST (17-59) U/L ALT (21-72) U/L Alkaline Phosphatase (38-126) U/L Troponin I <0.012 (0.000-0.034) ng/mL Total Protein (6.3-8.2) g/dL Albumin (3.5-5.0) g/dL Urine Color Urine Appearance (Clear) Urine pH (5.0-8.0) Ur Specific [place] (1.001-1.035) Urine Protein (Negative) Urine Glucose (UA) (Negative) Urine Ketones (Negative) Urine Blood (Negative) Urine Nitrite (Negative) Urine Bilirubin (Negative) Urine Urobilinogen (<2.0) mg/dL Ur Leukocyte Esterase (Negative) Urine RBC (0-5) /hpf Urine WBC (0-5) /hpf Ur Squamous Epith Cells (0-4) /hpf Hyaline Casts (0-2) /lpf Urine Mucus (None) /hpf 05/19/19 Range/Units 20:35 WBC (3.8-10.6) k/uL RBC (4.30-5.90) m/uL Hgb (13.0-17.5) gm/dL Hct (39.0-53.0) % MCV (80.0-100.0) fL MCH (25.0-35.0) pg MCHC (31.0-37.0) g/dL RDW (11.5-15.5) % Plt Count (150-450) k/uL Neutrophils % % Lymphocytes % % Monocytes % % Eosinophils % % Basophils % % Neutrophils # (1.3-7.7) k/uL Lymphocytes # (1.0-4.8) k/uL Monocytes # (0-1.0) k/uL Eosinophils # (0-0.7) k/uL Basophils # (0-0.2) k/uL PT (9.0-12.0) sec INR (<1.2) APTT (22.0-30.0) sec D-Dimer (<0.60) mg/L FEU Sodium (137-145) mmol/L Potassium (3.5-5.1) mmol/L Chloride (98-107) mmol/L Carbon Dioxide (22-30) mmol/L Anion Gap mmol/L BUN (9-20) mg/dL Creatinine (0.66-1.25) mg/dL Est GFR (CKD-EPI)AfAm (>60 ml/min/1.73 sqM) Est GFR (CKD-EPI)NonAf (>60 ml/min/1.73 sqM) Glucose (74-99) mg/dL Plasma Lactic Acid Jose Luis (0.7-2.0) mmol/L Calcium (8.4-10.2) mg/dL Magnesium (1.6-2.3) mg/dL Total Bilirubin (0.2-1.3) mg/dL AST (17-59) U/L ALT (21-72) U/L Alkaline Phosphatase (38-126) U/L Troponin I (0.000-0.034) ng/mL Total Protein (6.3-8.2) g/dL Albumin (3.5-5.0) g/dL Urine Color Yellow Urine Appearance Clear (Clear) Urine pH 5.5 (5.0-8.0) Ur Specific [place] 1.013 (1.001-1.035) Urine Protein 1+ H (Negative) Urine Glucose (UA) 3+ H (Negative) Urine Ketones Negative (Negative) Urine Blood Negative (Negative) Urine Nitrite Negative (Negative) Urine Bilirubin Negative (Negative) Urine Urobilinogen <2.0 (<2.0) mg/dL Ur Leukocyte Esterase Negative (Negative) Urine RBC 1 (0-5) /hpf Urine WBC 1 (0-5) /hpf Ur Squamous Epith Cells <1 (0-4) /hpf Hyaline Casts 4 H (0-2) /lpf Urine Mucus Rare H (None) /hpf - Radiology Data Two-view x-ray of the chest is obtained. Report reviewed in its entirety. Impression by Dr. Sahu shows no acute process. (Yudi Guardado) Disposition Decision to Admit Reason: Admit from EC Decision Date: 05/19/19 Decision Time: 21:17 <Yudi Guardado - Last Filed: 05/19/19 21:15> <Abdirahman Santana - Last Filed: 05/19/19 22:07> Clinical Impression: Hypotension, Acute on chronic renal failure, Leukocytosis Disposition: ADMITTED IP TO THIS [facility] Condition: Serious Referrals: Dru Colby MD [Primary Care Provider] - 1-2 days
[2019-05-19 19:30] LABS: Basophils # (A) 0.6 k/uL (0-0.2); Basophils % (A) 4 %; Eosinophils # (A) 0.3 k/uL (0-0.7); Eosinophils % (A) 2 %; HCT 47.8 % (39.0-53.0); HGB 15.7 gm/dL (13.0-17.5); Lymphocytes % (A) 14 %; MCH 30.8 pg (25.0-35.0); MCHC 32.8 g/dL (31.0-37.0); MCV 93.9 fL (80.0-100.0); Mean Platelet Volume 8.6; Monocytes # (A) 0.8 k/uL (0-1.0); Monocytes % (A) 5 %; Neutrophils # (A) 11.2 k/uL (1.3-7.7); Neutrophils % (A) 77 %; Platelet Count 339 k/uL (150-450); RBC 5.09 m/uL (4.30-5.90); RDW 13.4 % (11.5-15.5); WBC 14.5 k/uL (3.8-10.6)
[2019-05-19] MEDS ORDERED: SODIUM CHLORIDE 0.9% 1,000 ML IV ONE (19:32)
[2019-05-19 19:45] LABS: Albumin 4.5 g/dL (3.5-5.0); Calcium 9.7 mg/dL (8.4-10.2); Magnesium 2.2 mg/dL (1.6-2.3); Total Bilirubin 0.8 mg/dL (0.2-1.3); Total Protein 7.9 g/dL (6.3-8.2)
[2019-05-19 20:00] LABS: Partial Thromboplastin Time 25.3 sec (22.0-30.0)
[2019-05-19] MEDS: SODIUM CHLORIDE 0.9% 1,000 ML IV SCH (20:36)
--- NOTE | 2019-05-19 20:48 | XR ---
EXAMINATION: XR chest 2V DATE AND TIME: 05/19/2019 7:28 PM CLINICAL INDICATION: PHH; syncope TECHNIQUE: Departmental protocol COMPARISON: 05/09/2019 FINDINGS: Superimposed over the right hemithorax is a vertically oriented catheter, similar to the pr ior study. The lungs are clear. The pleural spaces are negative. The cardiac silhouette appears borderline enlarged. The remainder of the mediastinal silhouette is un remarkable. The skeletal structures and soft tissues are negative for acute findings. IMPRESSION: NO ACUTE PROCESS.
[2019-05-19 20:55] LABS: Appearance,Urine Clear (Clear); Bilirubin,Urine Negative (Negative); Blood,Urine Negative (Negative); Color,Urine Yellow; Glucose,Urine (UA) 3+ (Negative); Hyaline Casts,Urine 4 /lpf (0-2); Ketones,Urine Negative (Negative); Leukocyte Esterase,Urine Negative (Negative); Mucus,Urine Rare /hpf; Nitrite,Urine Negative (Negative); PH, Urine 5.5 (5.0-8.0); Protein,Urine 1+ (Negative); RBC,Urine 1 /hpf (0-5); Specific Gravity,Urine 1.013 (1.001-1.035); Squamous Epithelial Cell,Urine <1 /hpf (0-4); Urobilinogen,Urine <2.0 mg/dL (<2.0); WBC,Urine 1 /hpf (0-5)
[2019-05-19] MEDS ORDERED: ONDANSETRON 4 MG/2 ML VIAL IVP PRN (21:13)
[2019-05-19] MEDS ORDERED: NALOXONE 0.4 MG/ML 1 ML VIAL IV PRN (21:13)
[2019-05-20] MEDS: SODIUM CHLORIDE 0.9% 1,000 ML IV SCH ×3 (04:29→20:04)
[2019-05-20 07:01] LABS: Glucose,Whole Blood 211 mg/dL (75-99)
[2019-05-20 12:06] LABS: Glucose,Whole Blood 326 mg/dL (75-99)
--- NOTE | 2019-05-20 12:58 | P.HPIM ---
History of Present Illness 63-year-old male presented the emergency room after episode of syncope. Patient states he has low midsternal chest pain for 4 hours. Patient had a stress test scheduled for next week. Patient appeared of hypertension and subsequent of doubling of creatinine. Patient has a history of diabetes type 2 hypertension hyperlipidemia patient is also Dr. smoker and history of CVA/TIA Review of Systems Constitutional: Reports fatigue, Reports weakness Cardiovascular: Reports chest pain, Reports syncope Past Medical History Past Medical History: Chest Pain / Angina, CVA/TIA, Diabetes Mellitus, Hearing Disorder / Deafness, Hyperlipidemia, Hypertension Additional Past Medical History / Comment(s): TIA, no residual effects, HX KIDNEY STONE. IBS, HX DIVERTICULITIS. HIATAL HERNIA, perontonial shunt, a rthritis History of Any Multi-Drug Resistant Organisms: None Reported Past Surgical History: Bowel Resection, Orthopedic Surgery Additional Past Surgical History / Comment(s): LEFT KNEE ARTHROSCOPIC. SHUNT [id number] R/T PRESSURE IN SKULL. 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, COLONOSCOPY, NECK FUSION disC to 4,5, 6, Past Anesthesia/Blood Transfusion Reactions: No Reported Reaction Past Psychological History: Anxiety, Depression Smoking Status: Current every day smoker Past Alcohol Use History: None Reported Additional Past Alcohol Use History / Comment(s): STARTED SMOKING AT AGE 15 SMOKES 1PPD; Past Drug Use History: Marijuana Additional Drug Use History / Comment(s): occasional use - Past Family History Mother Family Medical History: Cancer Additional Family Medical History / Comment(s): kidney Father Family Medical History: Cancer Additional Family Medical History / Comment(s): pancreatic Medications and Allergies Home Medications Medication Instructions Recorded Confirmed Type Lisinopril [Zestril] 20 mg PO BID 11/24/15 05/19/19 History Simvastatin [Zocor] 40 mg PO AC-SUPPER 11/24/15 05/19/19 History Insulin Aspart [NovoLOG Flexpen] 10 units SQ AC-LUNCH 12/15/18 05/19/19 History Insulin Aspart [NovoLOG Flexpen] 20 units SQ AC-BID@0900,1800 12/15/18 05/19/19 History Insulin Detemir (Levemir) [Levemir] 45 unit SQ AC-BRKFST 12/15/18 05/19/19 History Pantoprazole [Protonix] 40 mg PO DAILY 05/09/19 05/19/19 History Aspirin 81 mg PO DAILY chew 05/12/19 05/19/19 Rx ALPRAZolam [Xanax] 1 mg PO DAILY PRN 05/19/19 05/19/19 History Allergies Allergy/AdvReac Type Severity Reaction Status Date / Time blue dye Allergy Severe Rash/Hives Verified 05/19/19 19:46 codeine Allergy Itching Verified 05/19/19 19:46 naproxen sodium [From Aleve] Allergy Rash/Hives Verified 05/19/19 19:46 naloxegol [From Movantik] AdvReac Nausea & Verified 05/19/19 19:46 Vomiting Physical Exam Vitals: Vital Signs Temp Pulse Pulse Resp BP BP BP 05/20/19 07:29 98.3 F 80 18 119/59 134/80 05/19/19 23:15 98.3 F 82 18 05/19/19 23:00 84 18 109/66 05/19/19 22:30 84 18 99/57 05/19/19 22:00 84 18 94/71 05/19/19 21:30 84 18 111/66 05/19/19 21:12 86 18 107/66 05/19/19 21:00 87 18 101/61 05/19/19 20:30 87 18 97/50 05/19/19 19:30 81 18 86/55 05/19/19 18:40 98.3 F 89 20 89/54 BP Pulse Ox 05/20/19 07:29 97 05/19/19 23:15 97/61 96 05/19/19 23:00 05/19/19 22:30 05/19/19 22:00 05/19/19 21:30 05/19/19 21:12 98 05/19/19 21:00 98 05/19/19 20:30 99 05/19/19 19:30 99 05/19/19 18:40 95 Intake and Output 05/19/19 05/20/19 05/20/19 22:59 06:59 14:59 Intake Total 480 Balance 480 Intake: Oral 480 Other: Voiding Method Toilet Weight 89.811 kg - Constitutional General appearance: mild distress - EENT Eyes: PERRLA Ears: bilateral: normal - Neck Neck: normal ROM - Respiratory Respiratory: bilateral: wheezing - Cardiovascular Rhythm: regular - Gastrointestinal General gastrointestinal: soft - Integumentary Integumentary: normal - Neurologic Neurologic: CNII-XII intact - Musculoskeletal Musculoskeletal: gait normal - Psychiatric Psychiatric: A&O x's 3, appropriate affect, intact judgment & insight Results CBC & Chem 7: 05/19/19 18:50 05/19/19 18:50 Labs: Abnormal Lab Results - Last 24 Hours (Table) 05/19/19 05/19/19 05/19/19 Range/Units 18:50 18:50 20:35 WBC 14.5 H (3.8-10.6) k/uL Neutrophils # 11.2 H (1.3-7.7) k/uL Basophils # 0.6 H (0-0.2) k/uL Carbon Dioxide 21 L (22-30) mmol/L BUN 43 H (9-20) mg/dL Creatinine 2.14 H (0.66-1.25) mg/dL Glucose 117 H (74-99) mg/dL POC Glucose (mg/dL) (75-99) mg/dL Urine Protein 1+ H (Negative) Urine Glucose (UA) 3+ H (Negative) Hyaline Casts 4 H (0-2) /lpf Urine Mucus Rare H (None) /hpf 05/20/19 05/20/19 Range/Units 06:57 11:53 WBC (3.8-10.6) k/uL Neutrophils # (1.3-7.7) k/uL Basophils # (0-0.2) k/uL Carbon Dioxide (22-30) mmol/L BUN (9-20) mg/dL Creatinine (0.66-1.25) mg/dL Glucose (74-99) mg/dL POC Glucose (mg/dL) 211 H 326 H (75-99) mg/dL Urine Protein (Negative) Urine Glucose (UA) (Negative) Hyaline Casts (0-2) /lpf Urine Mucus (None) /hpf Chest x-ray: report reviewed Thrombosis Risk Factor Assmnt - Choose All That Apply Each Risk Factor Represents 2 Points: Age 61-74 years Thrombosis Risk Factor Assessment Total Risk Factor Score: 2 Thrombosis Risk Factor Assessment Level: Low Risk Assessment and Plan Plan: Assessment Chest pain with hypotension syncope Acute renal failure leukocytosis History of CVA/TIA Diabetes type 2 Hard of hearing Hypertension Hyperlipidemia History of smoking Plan Patient's no code patient Patient to see cardiology regarding chest pain Nephrology consult and for acute renal failure
[2019-05-20] MEDS ORDERED: ALPRAZolam 1 MG TAB PO PRN (13:12)
--- NOTE | 2019-05-20 15:15 | P.CRDCN ---
History of Present Illness History of present illness: This is a pleasant 63-year-old male past medical history significant for diabetes mellitus, hiatal hernia, hypertension, dyslipidemia and TIA in the past. He also unfortunately smokes a pack of cigarettes per day. He follows in the office with Dr. Guillen. We have been asked to see him in consultation secondary to chest discomfort. He was here in the hospital at the end of last month for similar type symptoms that were thought to be atypical and recommended an outpatient stress test. He saw Dr. Guillen in the office yesterday and Dr. Guillen scheduled him for a Lexiscan stress test next week. Last evening 30 minutes after eating dinner he was sitting down on the couch and he started to feel uneasy. He states he felt like his sugar was low. He stood up to walk over and pickler helper his glucometer while he was walking he started feeling extremely lightheaded like he was going to pass out. He remembers picking up his lancet poked his finger and then the next thing he remembers is his shaking him waking him up from the floor. He did have positive loss of consciousness per his this was very brief less than 5 seconds. EMS was notified and upon arrival he was noted to be diaphoretic and hypotensive. Blood sugar was 121. Blood pressure on arrival to the emergency department was 89/54 and 86/55. He was given IV fluids and blood pressure slowly started to improve. He has continued to have intermittent episodes of discomfort in the epigastric and midsternal region. These episodes occur after eating. On last admission he did see Dr. Arrieta in consultation and underwent a barium swallow study that revealed a small to moderate-sized sliding hiatal hernia, one single spontaneous episode of moderate GERD and the patient was in the left decubitus position and moderate dysmotility with delayed clearance of contrast from the esophagus when the patient was supine. Pt is seen and examined sitting up in bed in no acute distress. He is quite tearful and frustrated with the lack of answers for his symptoms. EKG reveals sinus mechanism with poor R-wave progression. Chest x-ray is negative for an acute cardiopulmonary process. Laboratory data reviewed from yesterday, WBC 14.5, hemoglobin 15.7, platelets 339, d-dimer 0.34, sodium 140, potassium 5.0, creatinine 2.14, GFR 32, magnesium 2.2, cardiac enzymes negative 1. Current daily cardiac medications include aspirin 81 mg daily, lisinopril 20 mg, simvastatin 40 mg daily. He underwent echocardiogram on May 09 revealing preserved LV systolic function with ejection fraction 60-65%. Most recent stress test performed in the office in 2016 was a dobutamine stress echocardiogram was negative for stress-induced ischemia. At the time of my exam: CONSTITUTIONAL: Denies fever. Denies chills. EYES: Denies blurred vision. Denies vision changes. Denies eye pain. EARS, NOSE, MOUTH & THROAT: Denies headache. Denies sore throat. Denies ear pain. CARDIOVASCULAR: Denies chest pain. Denies shortness of breath. Denies orthopnea. Denies PND. Denies palpitations. RESPIRATORY: Denies cough. GASTROINTESTINAL: Denies abdominal pain. Denies diarrhea. Denies constipation. Denies nausea. Denies vomiting. MUSCULOSKELETAL: Denies myalgias. INTEGUMENTARY: Denies pruitis. Denies rash. NEUROLOGIC: Denies numbness. Denies tingling. Denies weakness. PSYCHIATRIC: Denies anxiety. Denies depression. ENDOCRINE: Denies fatigue. Denies weight change. Denies polydipsia. Denies polyurina. GENITOURINARY: Denies burning, hematuria or urgency with micturation. HEMATOLOGIC: Denies history of anemia. Denies bleeding. Blood pressure 119/59 heart rate 88 afebrile maintaining oxygen saturation on room air. GENERAL: This is a 63-year-old male in no apparent distress at the time of my examination. HEENT: Head is atraumatic, normocephalic. Pupils are equal, round. Sclerae anicteric. Conjunctivae are clear. Mucous membranes of the mouth are moist. Neck is supple. There is no jugular venous distention. No carotid bruit is heard. LUNGS: Clear to auscultation no wheezes, rales or rhonchi. No chest wall tenderness is noted on palpation or with deep breathing. HEART: Regular rate and rhythm without murmurs, rubs or gallops. S1 and S2 heard. ABDOMEN: Soft, nontender. Bowel sounds are heard. No organomegaly noted. EXTREMITIES: No evidence of peripheral edema and no calf tenderness noted. 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 VASCULAR: Radial on the right and dorsalis pedis bilateral pulses palpated, no evidence of clubbing. NEUROLOGIC: Patient is awake, alert and oriented x3. ASSESSMENT Chest pain after eating, atypical for angina. Syncope, with hypotension and acute kidney injury consider due to dehydration. However will rule out cardiac etiology Acute kidney injury Leukocytosis Diabetes mellitus Hypertension Dyslipidemia Hiatal hernia Chronic nicotine dependence PLAN Repeat BMP today after hydration. Check second troponin to rule out an acute event. Chest pain is post oral intake and atypical for angina. NPO after midnight tonight for possible stress testing vs coronary angiography depending on clinical course. Smoking cessation recommended. Thank you kindly for this consultation. Nurse Practitioner note has been reviewed, I agree with a documented findings and plan of care. Patient was seen and examined. Past Medical History Past Medical History: Chest Pain / Angina, CVA/TIA, Diabetes Mellitus, Hearing Disorder / Deafness, Hyperlipidemia, Hypertension Additional Past Medical History / Comment(s): TIA, no residual effects, HX KIDNEY STONE. IBS, HX DIVERTICULITIS. HIATAL HERNIA, perontonial shunt, arthritis History of Any Multi-Drug Resistant Organisms: None Reported Past Surgical History: Bowel Resection, Orthopedic Surgery Additional Past Surgical History / Comment(s): LEFT KNEE ARTHROSCOPIC. SHUNT [id number] R/T PRESSURE IN SKULL. 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, COLONOSCOPY, NECK FUSION disC to 4,5, 6, Past Anesthesia/Blood Transfusion Reactions: No Reported Reaction Past Psychological History: Anxiety, Depression Smoking Status: Current every day smoker Past Alcohol Use History: None Reported Additional Past Alcohol Use History / Comment(s): STARTED SMOKING AT AGE 15 SMOKES 1PPD; Past Drug Use History: Marijuana Additional Drug Use History / Comment(s): occasional use - Past Family History Mother Family Medical History: Cancer Additional Family Medical History / Comment(s): kidney Father Family Medical History: Cancer Additional Family Medical History / Comment(s): pancreatic Medications and Allergies Home Medications Medication Instructions Recorded Confirmed Type Lisinopril [Zestril] 20 mg PO BID 11/24/15 05/19/19 History Simvastatin [Zocor] 40 mg PO AC-SUPPER 11/24/15 05/19/19 History Insulin Aspart [NovoLOG Flexpen] 10 units SQ AC-LUNCH 12/15/18 05/19/19 History Insulin Aspart [NovoLOG Flexpen] 20 units SQ AC-BID@0900,1800 12/15/18 05/19/19 History Insulin Detemir (Levemir) [Levemir] 45 unit SQ AC-BRKFST 12/15/18 05/19/19 History Pantoprazole [Protonix] 40 mg PO DAILY 05/09/19 05/19/19 History Aspirin 81 mg PO DAILY chew 05/12/19 05/19/19 Rx ALPRAZolam [Xanax] 1 mg PO DAILY PRN 05/19/19 05/19/19 History Allergies Allergy/AdvReac Type Severity Reaction Status Date / Time blue dye Allergy Severe Rash/Hives Verified 05/19/19 19:46 codeine Allergy Itching Verified 05/19/19 19:46 naproxen sodium [From Aleve] Allergy Rash/Hives Verified 05/19/19 19:46 naloxegol [From Movantik] AdvReac Nausea & Verified 05/19/19 19:46 Vomiting Physical Exam Vitals: Vital Signs Temp Pulse Pulse Resp BP BP BP 05/20/19 07:29 98.3 F 80 18 119/59 134/80 05/19/19 23:15 98.3 F 82 18 05/19/19 23:00 84 18 109/66 05/19/19 22:30 84 18 99/57 05/19/19 22:00 84 18 94/71 05/19/19 21:30 84 18 111/66 05/19/19 21:12 86 18 107/66 05/19/19 21:00 87 18 101/61 05/19/19 20:30 87 18 97/50 05/19/19 19:30 81 18 86/55 05/19/19 18:40 98.3 F 89 20 89/54 BP Pulse Ox 05/20/19 07:29 97 05/19/19 23:15 97/61 96 05/19/19 23:00 05/19/19 22:30 05/19/19 22:00 05/19/19 21:30 05/19/19 21:12 98 05/19/19 21:00 98 05/19/19 20:30 99 05/19/19 19:30 99 05/19/19 18:40 95 Intake and Output 05/19/19 05/20/19 05/20/19 22:59 06:59 14:59 Intake Total 480 1680 Balance 480 1680 Intake: Intake, IV Titration 1080 Amount Sodium Chloride 0.9% 1, 1080 000 ml @ 130 mls/hr IV . Q7H42M [facility] Rx#:[id number] Oral 480 600 Other: Voiding Method Toilet # Voids 2 Weight 89.811 kg Results 05/19/19 18:50 05/19/19 18:50 Cardiac Enzymes 05/19/19 05/19/19 Range/Units 18:50 18:50 AST 24 (17-59) U/L Troponin I <0.012 (0.000-0.034) ng/mL Coagulation 05/19/19 Range/Units 18:50 PT 11.0 (9.0-12.0) sec APTT 25.3 (22.0-30.0) sec CBC 05/19/19 Range/Units 18:50 WBC 14.5 H (3.8-10.6) k/uL RBC 5.09 (4.30-5.90) m/uL Hgb 15.7 (13.0-17.5) gm/dL Hct 47.8 (39.0-53.0) % Plt Count 339 (150-450) k/uL Comprehensive Metabolic Panel 05/19/19 Range/Units 18:50 Sodium 140 (137-145) mmol/L Potassium 5.0 (3.5-5.1) mmol/L Chloride 106 (98-107) mmol/L Carbon Dioxide 21 L (22-30) mmol/L BUN 43 H (9-20) mg/dL Creatinine 2.14 H (0.66-1.25) mg/dL Glucose 117 H (74-99) mg/dL Calcium 9.7 (8.4-10.2) mg/dL AST 24 (17-59) U/L ALT 25 (21-72) U/L Alkaline Phosphatase 81 (38-126) U/L Total Protein 7.9 (6.3-8.2) g/dL Albumin 4.5 (3.5-5.0) g/dL Current Medications Generic Name Dose Route Start Last Admin Trade Name Freq PRN Reason Stop Dose Admin Alprazolam 1 mg 05/20/19 13:12 Xanax PO DAILY PRN Anxiety Aspirin 81 mg 05/21/19 09:00 Aspirin PO DAILY [facility] Atorvastatin Calcium 20 mg 05/20/19 17:30 Lipitor PO AC-SUPPER [facility] Sodium Chloride 1,000 mls @ 130 mls/hr 05/19/19 19:45 05/20/19 11:55 Saline 0.9% IV 130 mls/hr .Q7H42M [facility] Administration Insulin Aspart 10 unit 05/21/19 12:30 Novolog SQ AC-LUNCH [facility] Insulin Aspart 20 unit 05/20/19 18:00 Novolog SQ AC-BID@0900,1800 [facility] Insulin Detemir 45 unit 05/21/19 07:30 Levemir SQ AC-BRKFST [facility] Lisinopril 20 mg 05/20/19 21:00 Zestril PO BID [facility] Naloxone HCl 0.2 mg 05/19/19 21:13 Narcan IV Q2M PRN Opioid Reversal Ondansetron HCl 4 mg 05/19/19 21:13 Zofran IVP Q8HR PRN Nausea And Vomiting Pantoprazole Sodium 40 mg 05/21/19 07:30 Protonix PO AC-BRKFST [facility] Intake and Output 05/19/19 05/20/19 05/20/19 22:59 06:59 14:59 Intake Total 480 1680 Balance 480 1680 Intake: Intake, IV Titration 1080 Amount Sodium Chloride 0.9% 1, 1080 000 ml @ 130 mls/hr IV . Q7H42M [facility] Rx#:[id number] Oral 480 600 Other: Voiding Method Toilet # Voids 2 Weight 89.811 kg 05/19/19 18:50 05/19/19 18:50
[2019-05-20 15:45] LABS: Calcium 8.6 mg/dL (8.4-10.2); Potassium 4.7 mmol/L (3.5-5.1)
[2019-05-20 17:09] LABS: Glucose,Whole Blood 232 mg/dL (75-99)
[2019-05-20] MEDS: INSULIN ASPART (NovoLOG) 100 UNIT/ML VIAL SQ SCH (17:29)
[2019-05-20] MEDS ORDERED: ATORVASTATIN 20 MG TAB PO SCH (17:30)
[2019-05-20 20:07] LABS: Glucose,Whole Blood 195 mg/dL (75-99)
[2019-05-20] MEDS: LISINOPRIL 20 MG TAB PO SCH (20:52)
[2019-05-20] MEDS: HYDROcodone/APAP 7.5-325MG 1 EACH TAB PO PRN (21:45)
[2019-05-21] MEDS: SODIUM CHLORIDE 0.9% 1,000 ML IV SCH ×2 (02:59→03:50)
[2019-05-21] MEDS: HYDROcodone/APAP 7.5-325MG 1 EACH TAB PO PRN ×2 (03:48→14:32)
[2019-05-21 06:58] LABS: Glucose,Whole Blood 196 mg/dL (75-99)
[2019-05-21 07:30] VITALS: RESP 16
[2019-05-21] MEDS ORDERED: PANTOPRAZOLE 40 MG TABLET PO SCH (07:30)
[2019-05-21] MEDS ORDERED: INSULIN DETEMIR (LEVEMIR) 100 UNIT/ML SYR SQ SCH (07:30)
[2019-05-21] MEDS: LISINOPRIL 20 MG TAB PO SCH (07:33)
[2019-05-21] MEDS: INSULIN ASPART (NovoLOG) 100 UNIT/ML VIAL SQ SCH (07:33)
[2019-05-21 08:19] LABS: Glucose,Whole Blood 182 mg/dL (75-99)
[2019-05-21] MEDS ORDERED: ASPIRIN 81 MG PO SCH (09:00)
[2019-05-21] MEDS ORDERED: CAFFEINE CITRATE 60 MG/3 ML VIAL IV PRN (09:32)
[2019-05-21] MEDS ORDERED: DIPYRIDAMOLE 51 MG in SODIUM CHLORIDE 0.9% 39.8 ML IV ONE (09:32)
[2019-05-21] MEDS ORDERED: AMINOPHYLLINE 500 MG/20 ML VIAL IV PRN (09:32)
[2019-05-21] MEDS ORDERED: AMINOPHYLLINE 500 MG/20 ML VIAL IV ONE (11:38)
--- NOTE | 2019-05-21 12:16 | NM ---
EXAMINATION TYPE: NM stress persantine cardiolit DATE OF EXAM: 05/21/2019 COMPARISON: NONE HISTORY: Chest pain TECHNIQUE: After the intravenous administration of 10.3 mCi Tc 99m Sestamibi - Cardiolite resting SP ECT images acquired 45 minutes post injection. The patient received 51 mg Persantine, 26.1 mCi Tc 99m Sestamibi - Stress images obtained 30 minutes post injection FINDINGS: Review of stress and rest SPECT images demonstrates no distinct perfusion abnormality. Gated analysi s shows normal wall motion with an estimated left ventricular ejection fraction of 65 %. TID is calci fied within normal limits at 1.04. IMPRESSION: No scintigraphic evidence for reversible ischemia.
[2019-05-21 12:23] LABS: Glucose,Whole Blood 171 mg/dL (75-99)
[2019-05-21] MEDS ORDERED: INSULIN ASPART (NovoLOG) 100 UNIT/ML VIAL SQ SCH (12:30)
--- NOTE | 2019-05-21 12:32 | EST ---
EXERCISE STRESS AGE: 63 SEX: M HT: 68" WT: 198 PROTOCOL: Persantine Cardiolite Stress Test HEART RATE REST: 81 BLOOD PRESSURE REST: 180/100 MAXIMUM HEART RATE ACHIEVED: 97 MAXIMUM BLOOD PRESSURE: 169/77 INDICATIONS: Chest pain. CLINICAL INFORMATION: Patient was given Lexiscan injection over a period of 15 seconds. The resting heart rate is 81 beats per minute. Resting blood pressure is 180/100 mmHg. Peak blood pressure was 169/77 mmHg. Resting EKG shows normal sinus rhythm with normal CT interval and QRS duration and normal ST-T waves. No ST-segment depression suggestive of ischemia is noted. The results of the nuclear study will follow. MMYARON / ASHLEYN: [id number] /
--- NOTE | 2019-05-21 15:13 | P.PN ---
Subjective This is a pleasant 63-year-old male past medical history significant for diabetes mellitus, hiatal hernia, hypertension, dyslipidemia and TIA in the past. He also unfortunately smokes a pack of cigarettes per day. He follows in the office with Dr. Guillen. Pt is seen and examined in no acute distress. He denies epigastric discomfort this morning, he has been NPO. He denies chest pain, shortness of breath, dizziness or palpitations. Laboratory data reviewed, creatinine 1.35, sodium 139, potassium 4.7, troponin negative x2. Currently maintained on aspirin 81 mg daily and lisinopril 20 mg BID. Blood pressure 149/80 heart rate 74 afebrile and maintaining oxygen saturation on room air. He is quite frustrated with no answers for his constant epigastric pain and difficulty swallowing at times. GENERAL: This is a 63-year-old male in no apparent distress at the time of my examination. HEENT: Head is atraumatic, normocephalic. Pupils are equal, round. Sclerae anicteric. Conjunctivae are clear. Mucous membranes of the mouth are moist. Neck is supple. There is no jugular venous distention. No carotid bruit is heard. LUNGS: Clear to auscultation no wheezes, rales or rhonchi. No chest wall tenderness is noted on palpation or with deep breathing. HEART: Regular rate and rhythm without murmurs, rubs or gallops. S1 and S2 heard. EXTREMITIES: No evidence of peripheral edema and no calf tenderness noted. 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 ASSESSMENT Chest pain after eating, atypical for angina. Syncope, with hypotension and acute kidney injury consider due to dehydration. However will rule out cardiac etiology Acute kidney injury Leukocytosis Diabetes mellitus Hypertension Dyslipidemia Hiatal hernia Chronic nicotine dependence PLAN Stress test performed this morning was negative for reversible ischemia. Recommend reglan 10 mg TID before meals. Stable for discharge from a cardiac perspective. Follow up with Dr. Guillen upon discharge. Nurse Practitioner note has been reviewed, I agree with a documented findings and plan of care. Patient was seen and examined. Objective - Vital Signs Vital signs: Vital Signs Temp 98.2 F 05/21/19 07:00 Pulse 74 05/21/19 07:00 Resp 16 05/21/19 07:00 BP 149/80 05/21/19 07:00 Pulse Ox 96 05/21/19 07:00 Intake & Output 05/20/19 05/21/19 05/21/19 18:59 06:59 18:59 Intake Total 1680 250 Balance 1680 250 Intake: Intake, IV Titration 1080 Amount Sodium Chloride 0.9% 1, 1080 000 ml @ 130 mls/hr IV . Q7H42M [facility] Rx#:[id number] Oral 600 250 Other: Voiding Method Toilet Toilet # Voids 2 - Labs CBC & Chem 7: 05/19/19 18:50 05/20/19 15:07 Labs: Abnormal Lab Results - Last 24 Hours (Table) 05/20/19 05/20/19 05/20/19 Range/Units 15:07 16:56 19:54 Chloride 110 H (98-107) mmol/L Carbon Dioxide 21 L (22-30) mmol/L BUN 34 H (9-20) mg/dL Creatinine 1.35 H (0.66-1.25) mg/dL Glucose 292 H (74-99) mg/dL POC Glucose (mg/dL) 232 H 195 H (75-99) mg/dL 05/21/19 05/21/19 05/21/19 Range/Units 06:44 08:07 12:11 Chloride (98-107) mmol/L Carbon Dioxide (22-30) mmol/L BUN (9-20) mg/dL Creatinine (0.66-1.25) mg/dL Glucose (74-99) mg/dL POC Glucose (mg/dL) 196 H 182 H 171 H (75-99) mg/dL Microbiology - Last 24 Hours (Table) 05/19/19 19:57 Blood Culture - Preliminary Blood No Growth after 24 hours
[2019-05-21 15:27] VITALS: BP 164/84; PULSE 83; TEMP 98.6
--- NOTE | 2019-05-21 16:17 | P.DS ---
Providers Date of admission: 05/19/19 22:06 Expected date of discharge: 05/21/19 Attending physician: Dru Colby Consults: 05/20/19 12:50 Consult Physician Urgent Consulting Provider: Sourav Fay Consult Reason/Comments: chest pain Do you want consulting provider notified?: Yes Consult Physician Urgent Consulting Provider: January Angulo Consult Reason/Comments: DANNY Do you want consulting provider notified?: Yes Primary care physician: Dru Colby Hospital Course: 63 year old male admitted from ER with complaints of syncope . Patient was evaluated by cardiology negative stress test. Patient had acute kidney injury with dehydration patient was rehydrated..Patient improved requesting discharge. Assessment hypotension chest pain atypical negative stress test hx CVA /TIA dehydration Acute kidney injury resolved DM II hypertesion hyperlipedemia smoker Plan f/u with family physician Patient Condition at Discharge: Serious Plan - Discharge Summary Discharge Rx Participant: Yes New Discharge Prescriptions: Continue Simvastatin [Zocor] 40 mg PO AC-SUPPER Lisinopril [Zestril] 20 mg PO BID Insulin Detemir (Levemir) [Levemir] 45 unit SQ AC-BRKFST Insulin Aspart [NovoLOG Flexpen] 20 units SQ AC-BID@0900,1800 Insulin Aspart [NovoLOG Flexpen] 10 units SQ AC-LUNCH Pantoprazole [Protonix] 40 mg PO DAILY Aspirin 81 mg PO DAILY chew ALPRAZolam [Xanax] 1 mg PO DAILY PRN PRN Reason: Anxiety Discharge Medication List Lisinopril [Zestril] 20 mg PO BID 11/24/15 [History] Simvastatin [Zocor] 40 mg PO AC-SUPPER 11/24/15 [History] Insulin Aspart [NovoLOG Flexpen] 10 units SQ AC-LUNCH 12/15/18 [History] Insulin Aspart [NovoLOG Flexpen] 20 units SQ AC-BID@0900,1800 12/15/18 [History] Insulin Detemir (Levemir) [Levemir] 45 unit SQ AC-BRKFST 12/15/18 [History] Pantoprazole [Protonix] 40 mg PO DAILY 05/09/19 [History] Aspirin 81 mg PO DAILY chew 05/12/19 [Rx] ALPRAZolam [Xanax] 1 mg PO DAILY PRN 05/19/19 [History] Follow up Appointment(s)/Referral(s): Dru Colby MD [Primary Care Provider] - 05/28/19 11:20 am Patient Instructions/Handouts: Acute Kidney Injury (DC), Syncope (DC) Discharge Disposition: HOME SELF-CARE
[2019-05-21] MEDS ORDERED: METOCLOPRAMIDE 10 MG TAB PO SCH (17:30)
--- NOTE | 2019-05-21 18:59 | CONS ---
CONSULTATION REASON FOR CONSULT: Renal failure. HISTORY OF PRESENT ILLNESS: Patient is a 63-year-old male who was admitted to the hospital with complaints of feeling weak and tired. He also had chest pain and had an episode of syncope. Patient's creatinine was noted to be elevated at 2.1 mg/dL on 05/19/2019. He is currently maintained on IV fluids. Creatinine came down to 1.3. Review of previous labs shows a serum creatinine 1.1 to 1.3 mg/dL in earlier part of April of 2019. Patient is maintained on SHUN inhibitors as outpatient. He continues with the Zestril during his hospitalization. IV fluids were running at 100 mL/hour. No significant urinary symptoms. PAST MEDICAL HISTORY: Past medical history is significant for: 1. History of TIA. 2. Hypertension. 3. Hyperlipidemia. 4. CVA. 5. Hearing loss. 6. Nephrolithiasis. PAST SURGICAL HISTORY: 1. Hiatal hernia repair. 2. Bowel resection. 3. Knee arthroscopy. 4. Ventriculoperitoneal shunt. 5. 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 6. Neck fusion. SOCIAL HISTORY: Positive for smoking, history of marijuana use. No history of alcohol abuse or other drug abuse. MEDICATIONS: Medications at home prior to admission included: 1. Zestril. 2. Zocor. 3. Insulin. 4. Protonix. 5. Xanax. 6. Aspirin. ALLERGIES: ALLERGIES include: 1. CODEINE. 2. NAPROSYN causes rash and hives. 3. BLUE DYE, which causes rash, hives. REVIEW OF SYSTEMS: As per HPI. Other systems negative. PHYSICAL EXAMINATION: Patient is comfortable, awake, not in any acute distress. Blood pressure this morning 149/80, heart rate 74 per minute. He is afebrile. EXAMINATION OF THE HEART: S1 and S2. EXAMINATION OF LUNGS: Bilateral breath sounds are heard. ABDOMEN: Soft, non-tender. Examination of lower extremities shows no evidence of edema. Patient has had left upper extremity below-elbow amputation. [employer]KL[employer] exam is grossly intact. LABS: Sodium 139, potassium 4.7 from yesterday. BUN 34, serum creatinine 1.35. These labs were on 05/20/2019. UA on admission showed 1+ protein, glucose 3+. There was no blood, no WBCs. ASSESSMENT: 1. Acute kidney injury, prerenal, currently resolved. 2. Chest pain with negative stress test. 3. History of hypertension, currently controlled. May continue with the SHUN inhibitors. 4. Rule out chronic kidney disease. Repeat labs as outpatient. UA is unremarkable except for 1+ protein. This needs to be worked up. Most likely patient has underlying diabetic nephropathy. PLAN: Patient can be discharged. Follow up as outpatient to rule out chronic kidney disease. May continue with the SHUN inhibitors for now. Thank you for this consultation. Will continue to follow the patient with you. MMODL / IJN: [id number] /
== END 2019-05-21 15:10 | disposition home or self-care (01) ==
LOC: EC 18:23 → INTOOBSV 22:06 → 4SSUR 22:06
PROVIDERS: ADMIT Family Medicine; ATTEND Family Medicine
DX: I95.9 Hypotension, unspecified (principal); R55 Syncope and collapse; R07.89 Other chest pain; I12.9 Hypertensive chronic kidney disease with stage 1 through stage 4 chronic kidney disease, or unspecified chronic kidney disease; E86.0 Dehydration; N17.9 Acute kidney failure, unspecified; N18.9 Chronic kidney disease, unspecified; E11.22 Type 2 diabetes mellitus with diabetic chronic kidney disease; E78.5 Hyperlipidemia, unspecified; Z86.73 Personal history of transient ischemic attack (TIA), and cerebral infarction without residual deficits; F17.210 Nicotine dependence, cigarettes, uncomplicated; R10.13 Epigastric pain; R13.10 Dysphagia, unspecified; R61 Generalized hyperhidrosis; F41.9 Anxiety disorder, unspecified; F32.9 Major depressive disorder, single episode, unspecified; D72.829 Elevated white blood cell count, unspecified; K44.9 Diaphragmatic hernia without obstruction or gangrene; H91.90 Unspecified hearing loss, unspecified ear; E11.21 Type 2 diabetes mellitus with diabetic nephropathy; K58.9 Irritable bowel syndrome, unspecified; M19.90 Unspecified osteoarthritis, unspecified site; Z87.442 Personal history of urinary calculi; Z87.19 Personal history of other diseases of the digestive system; Z89.112 Acquired absence of left hand; Z98.1 Arthrodesis status; Z79.899 Other long term (current) drug therapy; Z79.4 Long term (current) use of insulin; Z79.82 Long term (current) use of aspirin; Z88.5 Allergy status to narcotic agent; Z88.6 Allergy status to analgesic agent; Z88.8 Allergy status to other drugs, medicaments and biological substances; Z91.048 Other nonmedicinal substance allergy status; Z80.51 Family history of malignant neoplasm of kidney; Z80.8 Family history of malignant neoplasm of other organs or systems
CPT/HCPCS: 96361 ×2; 96375; 96365; 99285; 36415; 93005; 93017; 85379; 80053; 80048; 83605; 83735; 84484 ×2; 85025; 85610; 85730; 81001; 87040; 71046; 78452; G0378 ×4; A9500; J2405; J0280; J0696; J1245

== ENCOUNTER → 2019-07-06 | Outpatient (CLI) | payer BC, MEDICARE ==
--- NOTE | 2019-07-28 10:14 | EM ---
EVENT MONITOR DATE OF SERVICE: 07/06/2019 INDICATION: Palpitations. This is a 30 day event monitor. The baseline rhythm appeared to be a sinus mechanism. The patient did have multiple episodes of sinus tachycardia. The patient also did have multiple short episodes of atrial tachycardia with the longest of 3 beats. No evidence of any sinus pause or sinus arrest seen. No evidence of any advanced AV block seen. The patient also did have multiple episodes of PVCs. During the PVC, he felt nauseated and night sweats. CONCLUSION: 1. Sinus rhythm as a baseline mechanism. 2. The patient did have multiple episodes of sinus tachycardia. 3. The patient did have multiple episodes of premature ventricular contractions. 4. No evidence of any sinus pause or sinus arrest. 5. No evidence of any advanced AV block seen. 6. The patient did have multiple short episodes of atrial tachycardia as well. 7. The patient returned the monitor early. MMYARON / ASHLEYN: [id number] /
== END | disposition home or self-care (01) ==
LOC: RADECHMAIN 13:29
PROVIDERS: ATTEND Family Medicine
DX: I49.3 Ventricular premature depolarization (principal); I47.1 Supraventricular tachycardia
CPT/HCPCS: 93270

== ENCOUNTER 2019-07-11 04:26 | Emergency (ER) | payer BC, MEDICARE ==
[2019-07-11 05:29] LABS: Basophils # (A) 0.1 k/uL (0-0.2); Basophils % (A) 1 %; Eosinophils # (A) 0.4 k/uL (0-0.7); Eosinophils % (A) 3 %; HCT 49.5 % (39.0-53.0); HGB 16.5 gm/dL (13.0-17.5); Lymphocytes # (A) 1.8 k/uL (1.0-4.8); Lymphocytes % (A) 12 %; MCH 31.4 pg (25.0-35.0); MCHC 33.3 g/dL (31.0-37.0); MCV 94.3 fL (80.0-100.0); Mean Platelet Volume 6.1; Monocytes # (A) 0.8 k/uL (0-1.0); Monocytes % (A) 5 %; Neutrophils # (A) 11.5 k/uL (1.3-7.7); Neutrophils % (A) 78 %; Platelet Count 278 k/uL (150-450); RBC 5.25 m/uL (4.30-5.90); RDW 12.7 % (11.5-15.5); WBC 14.7 k/uL (3.8-10.6)
[2019-07-11 05:42] LABS: Albumin 4.4 g/dL (3.5-5.0); Calcium 9.6 mg/dL (8.4-10.2); Magnesium 1.6 mg/dL (1.6-2.3); Potassium 4.5 mmol/L (3.5-5.1); Total Bilirubin 0.8 mg/dL (0.2-1.3); Total Protein 7.1 g/dL (6.3-8.2)
[2019-07-11 05:47] LABS: D-Dimer 0.31 mg/L FEU (<0.60); INR 1.1 (<1.2); Partial Thromboplastin Time 28.4 sec (22.0-30.0); Prothrombin Time 11.3 sec (9.0-12.0)
--- NOTE | 2019-07-11 05:54 | XR ---
EXAMINATION TYPE: XR chest 2V DATE OF EXAM: 07/11/2019 COMPARISON: May 19, 2019 HISTORY: Chest pain TECHNIQUE: Frontal and lateral views of the chest are obtained. FINDINGS: Heart and mediastinum are normal. There is ventriculoperitoneal shunt catheter. Lungs are clear. There is no heart failure. There are chest leads. Diaphragm is normal. Bony thorax is intact. IMPRESSION: No active cardiopulmonary disease. Normal heart. No change.
--- NOTE | 2019-07-11 07:06 | ED ---
Chest Pain HPI - General Chief Complaint: Chest Pain Stated Complaint: chest pain Time Seen by Provider: 07/11/19 04:34 Source: patient, family Mode of arrival: ambulatory Limitations: no limitations - History of Present Illness Initial Comments: This patient is 63-year-old man who presents to be evaluated for nausea, vomiting, and chest pain. The patient states that he had been asleep tonight approximately an hour ago when he woke up. Patient states that he felt some nausea, and had an episode of vomiting and then had some substernal chest pain t hat he was describing as a aching or burning. He notes that it seemed to go towards his neck and right arm. He did not have any dyspnea, diaphoresis, palpitations, lightheadedness or syncope. The patient states that he did have similar and was seen here as well as in his physician's office. He did have stress test approximately one month ago. MD Complaint: chest pain Onset/Timin -: hour(s) Onset: during rest, awoke with symptoms Pain Location: substernal Pain Radiation: RUE, neck Severity: moderate Quality: aching Consistency: now resolved Anginal Symptoms: nausea, vomiting Treatments Prior to Arrival: none - Related Data Home Medications Medication Instructions Recorded Confirmed Lisinopril [Zestril] 20 mg PO BID 11/24/15 05/19/19 Simvastatin [Zocor] 40 mg PO AC-SUPPER 11/24/15 05/19/19 Insulin Aspart [NovoLOG Flexpen] 10 units SQ AC-LUNCH 12/15/18 05/19/19 Insulin Aspart [NovoLOG Flexpen] 20 units SQ AC-BID@0900,1800 12/15/18 05/19/19 Insulin Detemir (Levemir) [Levemir] 45 unit SQ AC-BRKFST 12/15/18 05/19/19 Pantoprazole [Protonix] 40 mg PO DAILY 05/09/19 05/19/19 ALPRAZolam [Xanax] 1 mg PO DAILY PRN 05/19/19 05/19/19 Previous Rx's Medication Instructions Recorded Aspirin 81 mg PO DAILY chew 05/12/19 Allergies Allergy/AdvReac Type Severity Reaction Status Date / Time blue dye Allergy Severe Rash/Hives Verified 07/11/19 04:32 codeine Allergy Itching Verified 07/11/19 04:32 naproxen sodium [From Aleve] Allergy Rash/Hives Verified 07/11/19 04:32 naloxegol [From Movantik] AdvReac Nausea & Verified 07/11/19 04:32 Vomiting Review of Systems ROS Statement: Those systems with pertinent positive or pertinent negative responses have been documented in the HPI. ROS Other: All systems not noted in ROS Statement are negative. Constitutional: Denies: fever, chills Respiratory: Denies: cough, dyspnea Cardiovascular: Reports: chest pain. Denies: palpitations, dyspnea on exertion, orthopnea, edema, syncope Gastrointestinal: Reports: nausea, vomiting. Denies: abdominal pain, hematemesis, melena, hematochezia Genitourinary: Denies: dysuria, hematuria Musculoskeletal: Denies: back pain Skin: Denies: rash Neurological: Denies: headache, weakness, numbness EKG Findings - EKG Results: EKG: interpreted by ERMD, sinus rhythm (Rate 86 bpm), normal axis, normal ST/T Past Medical History Past Medical History: Chest Pain / Angina, CVA/TIA, Diabetes Mellitus, Hearing Disorder / Deafness, Hyperlipidemia, Hypertension Additional Past Medical History / Comment(s): TIA, no residual effects, HX KIDNEY STONE. IBS, HX DIVERTICULITIS. HIATAL HERNIA, perontonial shunt, arthritis History of Any Multi-Drug Resistant Organisms: None Reported Past Surgical History: Bowel Resection, Orthopedic Surgery Additional Past Surgical History / Comment(s): LEFT KNEE ARTHROSCOPIC. SHUNT 8473-1604 R/T PRESSURE IN SKULL. 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, COLONOSCOPY, NECK FUSION disC to 4,5, 6, Past Anesthesia/Blood Transfusion Reactions: No Reported Reaction Past Psychological History: Anxiety, Depression Smoking Status: Current every day smoker Past Alcohol Use History: None Reported Past Drug Use History: Marijuana - Past Family History Mother Family Medical History: Cancer Additional Family Medical History / Comment(s): kidney Father Family Medical History: Cancer Additional Family Medical History / Comment(s): pancreatic General Exam Limitations: no limitations General appearance: alert, in no apparent distress Head exam: Present: atraumatic, normocephalic Eye exam: Present: normal appearance. Absent: scleral icterus, conjunctival injection ENT exam: Present: normal oropharynx Neck exam: Present: normal inspection, full ROM Respiratory exam: Present: normal lung sounds bilaterally. Absent: respiratory distress, wheezes, rales, rhonchi, stridor Cardiovascular Exam: Present: regular rate, normal rhythm, normal heart sounds. Absent: systolic murmur, diastolic murmur, rubs, gallop GI/Abdominal exam: Present: soft. Absent: distended, tenderness, guarding, r ebound, rigid, mass Extremities exam: Present: normal inspection, normal capillary refill. Absent: pedal edema, calf tenderness Back exam: Present: normal inspection. Absent: CVA tenderness (R), CVA tenderness (L) Neurological exam: Present: alert Skin exam: Present: warm, dry, intact, normal color. Absent: rash Course Vital Signs 07/11/19 07/11/19 07/11/19 04:29 06:43 07:14 Temperature 98.3 F 98.4 F Pulse Rate 90 92 94 Respiratory 20 20 18 Rate Blood Pressure 123/75 132/81 111/68 O2 Sat by Pulse 98 98 [address] [facility] Patient is 63-year-old man with chest pain, nausea and vomiting starting about an hour ago. His initial workup is negative. I did recommend to the patient that he stay for serial cardiac enzymes as well as telemetry monitoring and cardiology consultation. The patient states that he has had recent evaluation for this and does not want stay today. We discussed possibility of a missed NE, given that he presented approximately an hour after onset of symptoms, but the patient states that he is feeling well and he will follow-up. He agrees to return here should any symptoms recur or new symptoms develop. Disposition Clinical Impression: Chest pain Disposition: Left Against Medical Advice Condition: Undetermined Instructions (If sedation given, give patient instructions): Chest Pain (ED) Is patient prescribed a controlled substance at d/c from ED?: No Referrals: Dru Colby MD [Primary Care Provider] - 1-2 days Cesar Sherman MD [STAFF PHYSICIAN] - 1-2 days
[2019-07-11 07:15] VITALS: BP 111/68; PULSE 94; RESP 18; TEMP 98.4
== END 2019-07-11 07:15 | disposition left against medical advice (07) ==
LOC: EC 04:26
DX: R07.89 Other chest pain (principal); R11.2 Nausea with vomiting, unspecified; E11.9 Type 2 diabetes mellitus without complications; E78.5 Hyperlipidemia, unspecified; I10 Essential (primary) hypertension; F41.9 Anxiety disorder, unspecified; F32.9 Major depressive disorder, single episode, unspecified; F17.200 Nicotine dependence, unspecified, uncomplicated; Z79.4 Long term (current) use of insulin; Z79.899 Other long term (current) drug therapy; Z88.5 Allergy status to narcotic agent; Z88.6 Allergy status to analgesic agent; Z88.8 Allergy status to other drugs, medicaments and biological substances; Z91.02 Food additives allergy status; Z86.73 Personal history of transient ischemic attack (TIA), and cerebral infarction without residual deficits; Z98.1 Arthrodesis status
CPT/HCPCS: 36415; 71046; 80053; 82150; 83690; 83735; 84484; 85025; 85379; 85610; 85730; 93005; 99285

== ENCOUNTER 2019-08-08 02:30 | Emergency (ER) | payer BC, MEDICARE ==
[2019-08-08 02:37] VITALS: BP 159/104; PULSE 71; RESP 20; TEMP 97.9
[2019-08-08] MEDS ORDERED: DIAZEPAM 5 MG/ML 2 ML INJ IM ONE (03:00)
[2019-08-08] MEDS ORDERED: KETOROLAC 30 MG/ML 1 ML VIAL IM STA (03:00)
--- NOTE | 2019-08-08 03:03 | ED ---
Neck Injury/Pain HPI - General Chief Complaint: Neck Pain/Injury Stated Complaint: Neck Pain Time Seen by Provider: 08/08/19 02:43 Mode of arrival: ambulatory Limitations: no limitations - History of Present Illness Initial Comments: 63-year-old male patient presents to the emergency department today for evaluation of right upper back pain radiating into his neck and down his right arm. Patient states this started a couple of days ago after having a severe sneezing episode. States he felt a pop to the area has been having pain since. Patient states he did have neck surgery a few years ago. He denies any numbness or tingling to the right arm. States he is having pain radiating down to his wrist travels across the top of the arm. Denies fevers or chills. States the pain worsens significantly with turning his head to the left or right and with movement of the right arm. States he has been taking Tylenol without relief. He has seen a chiropractor which did not help. Patient denies any headache, chest pain, shortness of breath, dizziness, weakness, abdominal pain, nausea, vomiting, or difficulties with bowel movements or urination. - Related Data Home Medications Medication Instructions Recorded Confirmed Lisinopril [Zestril] 20 mg PO BID 11/24/15 05/19/19 Simvastatin [Zocor] 40 mg PO AC-SUPPER 11/24/15 05/19/19 Insulin Aspart [NovoLOG Flexpen] 10 units SQ AC-LUNCH 12/15/18 05/19/19 Insulin Aspart [NovoLOG Flexpen] 20 units SQ AC-BID@0900,1800 12/15/18 05/19/19 Insulin Detemir (Levemir) [Levemir] 45 unit SQ AC-BRKFST 12/15/18 05/19/19 Pantoprazole [Protonix] 40 mg PO DAILY 05/09/19 05/19/19 ALPRAZolam [Xanax] 1 mg PO DAILY PRN 05/19/19 05/19/19 Previous Rx's Medication Instructions Recorded Aspirin 81 mg PO DAILY chew 05/12/19 Cyclobenzaprine [Flexeril] 10 mg PO TID #20 tab 08/08/19 Ibuprofen [Motrin] 600 mg PO Q8HR PRN #30 tab 08/08/19 Allergies Allergy/AdvReac Type Severity Reaction Status Date / Time blue dye Allergy Severe Rash/Hives Verified 08/08/19 02:36 codeine Allergy Itching Verified 08/08/19 02:36 naproxen sodium [From Aleve] Allergy Rash/Hives Verified 08/08/19 02:36 naloxegol [From Movantik] AdvReac Nausea & Verified 08/08/19 02:36 Vomiting Review of Systems ROS Statement: Those systems with pertinent positive or pertinent negative responses have been documented in the HPI. ROS Other: All systems not noted in ROS Statement are negative. Past Medical History Past Medical History: Chest Pain / Angina, CVA/TIA, Diabetes Mellitus, Hearing Disorder / Deafness, Hyperlipidemia, Hypertension Additional Past Medical History / Comment(s): TIA, no residual effects, HX KIDNEY STONE. IBS, HX DIVERTICULITIS. HIATAL HERNIA, perontonial shunt, arthritis History of Any Multi-Drug Resistant Organisms: None Reported Past Surgical History: Bowel Resection, Orthopedic Surgery Additional Past Surgical History / Comment(s): LEFT KNEE ARTHROSCOPIC. SHUNT [id number] R/T PRESSURE IN SKULL. 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, COLONOSCOPY, NECK FUSION disC to 4,5, 6, Past Anesthesia/Blood Transfusion Reactions: No Reported Reaction Past Psychological History: Anxiety, Depression Smoking Status: Current every day smoker Past Alcohol Use History: None Reported Past Drug Use History: Marijuana - Past Family History Mother Family Medical History: Cancer Additional Family Medical History / Comment(s): kidney Father Family Medical History: Cancer Additional Family Medical History / Comment(s): pancreatic General Exam Limitations: no limitations General appearance: alert, in no apparent distress, other (This is a well- developed, well-nourished adult male patient in no acute distress. ) Eye exam: Present: normal appearance, PERRL, EOMI. Absent: scleral icterus, conjunctival injection, periorbital swelling ENT exam: Present: normal exam, normal oropharynx, mucous membranes moist Neck exam: Present: normal inspection, full ROM, other (No cervical spinal tenderness.). Absent: tenderness, meningismus, lymphadenopathy Respiratory exam: Present: normal lung sounds bilaterally. Absent: respiratory distress, wheezes, rales, rhonchi, stridor Cardiovascular Exam: Present: regular rate, normal rhythm, normal heart sounds. Absent: systolic murmur, diastolic murmur, rubs, gallop, clicks GI/Abdominal exam: Present: soft, normal bowel sounds. Absent: distended, tenderness, guarding, rebound, rigid Extremities exam: Present: normal inspection, full ROM, normal capillary refill, other (Skin to the right upper extremity is pink, warm, and dry. Cap refill is < 3 seconds. Radial pulse is 2+. ). Absent: tenderness, pedal edema, joint swelling, calf tenderness Back exam: Present: normal inspection, muscle spasm (Right parascapular ). Absent: vertebral tenderness Neurological exam: Present: alert, oriented X3, CN II-XII intact Psychiatric exam: Present: normal affect, normal mood Skin exam: Present: warm, dry, intact, normal color. Absent: rash Course Vital Signs 08/08/19 02:32 Temperature 97.9 F Pulse Rate 71 Respiratory 20 Rate Blood Pressure 159/104 O2 Sat by Pulse 98 Oximetry Medical Decision Making - Medical Decision Making 63-year-old male patient presented to the emergency department today for evaluation of right upper back pain radiating into the right neck and right shoulder. Physical examination did reveal muscle spasm to the right parascapular region. Pain worsens significantly with range of motion of the right arm or of the neck. He was given IM doses of anti-inflammatory and muscle relaxing medication. Prescriptions were sent to his pharmacy. He is instructed to follow-up with his primary care physician for recheck on Saturday. Return parameters were discussed in detail. He verbalizes understanding and agrees with this plan. Disposition Clinical Impression: Spasmodic torticollis Disposition: HOME SELF-CARE Condition: Good Instructions (If sedation given, give patient instructions): Spasmodic Torticollis (ED) Additional Instructions: Take medications as directed. Apply heat alternating with 20 minutes at a time at least hourly. Follow-up through primary care physician for recheck on Saturday. If symptoms have not improved discuss MRI. Return to the emergency department immediately for any new, worsening, or concerning symptoms. Prescriptions: Cyclobenzaprine [Flexeril] 10 mg PO TID #20 tab Ibuprofen [Motrin] 600 mg PO Q8HR PRN #30 tab PRN Reason: Pain Is patient prescribed a controlled substance at d/c from ED?: No Referrals: Dru Colby MD [Primary Care Provider] - 1-2 days Time of Disposition: 03:03
== END 2019-08-08 03:27 | disposition home or self-care (01) ==
LOC: EC 02:30
DX: G24.3 Spasmodic torticollis (principal); M62.838 Other muscle spasm; E11.9 Type 2 diabetes mellitus without complications; E78.5 Hyperlipidemia, unspecified; I10 Essential (primary) hypertension; K58.9 Irritable bowel syndrome, unspecified; M19.90 Unspecified osteoarthritis, unspecified site; F17.200 Nicotine dependence, unspecified, uncomplicated; Z88.5 Allergy status to narcotic agent; Z88.6 Allergy status to analgesic agent; Z88.8 Allergy status to other drugs, medicaments and biological substances; Z91.048 Other nonmedicinal substance allergy status; Z79.4 Long term (current) use of insulin; Z79.899 Other long term (current) drug therapy; Z98.1 Arthrodesis status; X50.9XXA Other and unspecified overexertion or strenuous movements or postures, initial encounter
CPT/HCPCS: 99283; 96372 ×2; J3360; J1885

== ENCOUNTER → 2019-08-17 | Outpatient (CLI) | payer BC, MEDICARE ==
--- NOTE | 2019-08-17 23:12 | XR ---
EXAMINATION TYPE: XR cervical spine limited DATE OF EXAM: 08/17/2019 TECHNIQUE: Frontal, lateral, and open mouth view of the cervical spine are obtained. HISTORY: M54.6 Thoracic back pain M50.30 Degeneration of disc COMPARISON: Prior cervical spine x-ray September 13, 2017 FINDINGS: The cervical spine is visualized in its entirety from C1 thru the inferior C7 level, it is stable and satisfactory in alignment without evidence of acute fracture or dislocation. The pre-monse tebral soft tissue appears within normal limits. The C1-C2 articulation is within normal limits on t he open mouth view. Anterior fusion plate and artificial disc material C5-C7 level redemonstrated. Ve rtebral body heights and disc space heights about C5 level are stable and satisfactory. Right-sided V P shunt catheter partially imaged. IMPRESSION: As above.
--- NOTE | 2019-08-17 23:13 | XR ---
EXAMINATION TYPE: XR thoracic spine 2V DATE OF EXAM: 08/17/2019 CLINICAL HISTORY: Mid back pain. TECHNIQUE: Frontal, lateral, and swimmer's view of thoracic spine are obtained. COMPARISON: Thoracic spine x-ray May 28, 2017 FINDINGS: Thoracic spine show stable and satisfactory alignment without evidence of acute fracture or dislocation. Vertebral body heights remain preserved. Mild multilevel disc space narrowing with mil d to moderate multilevel anterior and lateral spurring redemonstrated. Visualized ribs are unremarkab le. 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 IMPRESSION: As above. No significant change from prior.
== END | disposition home or self-care (01) ==
LOC: RADXRMAIN 16:16
PROVIDERS: ATTEND Family Medicine
DX: M50.30 Other cervical disc degeneration, unspecified cervical region (principal); M99.72 Connective tissue and disc stenosis of intervertebral foramina of thoracic region; M54.6 Pain in thoracic spine; Z98.1 Arthrodesis status
CPT/HCPCS: 72040; 72070

== ENCOUNTER → 2019-08-25 | Outpatient (CLI) | payer BC, MEDICARE ==
--- NOTE | 2019-08-25 16:03 | MR ---
EXAMINATION TYPE: MR cervical spine wo/w con DATE OF EXAM: 08/25/2019 COMPARISON: 06/07/2017 HISTORY: 63-year-old male M50.122 / M50.123 / R53.1. New onset right upper extremity radiculopathy. Cervical disc disorder. Technique: Multiplanar, multisequence images of the cervical spine were obtained before and after adm inistration of 8.5 mL intravenous Gadavist gadolinium contrast. FINDINGS: No precervical junction of the body, predental space widening, or prevertebral soft tissue swelling. Redemonstrated underlying congenital spinal canal stenosis with AP canal dimension of 9 to 10 mm. Interval C5-C7 ACDF changes. Some mild ligamentum flavum thickening remains at the fused C5-C6 level. Degenerative disc disease throughout the nonfused levels with desiccation and mild bulging discs. Lef t paracentral disc bulges at C3-C4 and C4-C5 are new from 06/07/2017. Alignment is maintained. At C2-C3, facet arthropathy without significant canal or foraminal stenosis. At C3-C4, left paracentral disc protrusion focally abuts the ventral cord. Minimal accentuation of th e congenital spinal canal narrowing. Facet and uncovertebral joint arthropathy with moderate bilatera l neuroforaminal stenosis. At C4-C5, left paracentral disc protrusion focally abuts the ventral cord and slightly accentuates th e mild congenital spinal canal narrowing. Uncovertebral joint and facet degenerative changes are pres ent with moderate right and mild left neural foraminal stenosis. At the fused C5-C6 level, ligamentum flavum thickening abuts the dorsal cord. Mild overall narrowing of the spinal canal without cord compression. Facet and uncovertebral joint arthropathy contiguous to moderate bilateral neuroforaminal stenosis. At the fused C6-C7 level, facet and uncovertebral joint arthropathy with moderate to severe left and mild to moderate right neuroforaminal stenosis. Congenital spinal canal narrowing. At C7-T1, facet and uncovertebral joint arthropathy with mild bilateral neural foraminal stenosis. No significant spinal canal stenosis. There is mild cord volume loss at the C7 level with possible small amount of increased cord signal th ough not well corroborated on the axial sequence. No abnormal enhancement within the spinal canal. IMPRESSION: 1. Possible subtle myelomalacia at the C7 level. Not well corroborated on the axial sequence. No abno rmal enhancement within the spinal canal. 2. Interval C5-C7 ACDF changes. Underlying mild congenital spinal canal stenosis throughout the cervi constance spine. 3. New small left paracentral disc herniations at C3-C4 and C4-C5 abut the ventral cord and slightly accentuate the congenital spinal canal stenosis. 4. Hypertrophic facet and uncovertebral joint arthropathy resulting in variable neuroforaminal stenos es as outlined above.
== END | disposition home or self-care (01) ==
LOC: RADMRIMAIN 08:01
PROVIDERS: ATTEND Physician Assistant
DX: M48.02 Spinal stenosis, cervical region (principal); M50.11 Cervical disc disorder with radiculopathy, high cervical region; Z98.1 Arthrodesis status; Z48.89 Encounter for other specified surgical aftercare
CPT/HCPCS: 72156; A9585

== ENCOUNTER → 2019-09-22 | Outpatient (CLI) | payer BC, MEDICARE ==
--- NOTE | 2019-09-23 11:28 | MR ---
EXAMINATION TYPE: MR brachial plexus RT wo/w con DATE OF EXAM: 09/22/2019 COMPARISON: None HISTORY: Neck Pain CONTRAST: Standard multiplanar, multisequence MRI departmental protocol utilizing 9 mL intravenous Gadavist gio olinium contrast. TECHNIQUE: Multiplanar multiecho imaging is performed through the right brachial plexus. FINDINGS: No axillary masses are evident. Brachial plexus nerves as visualized appear normal. No mass es or mass effect is evident. Normal vascular flow voids are within the subclavian artery and vein. N o suspicious enhancement is evident. Note is made of hypertrophy at the right acromioclavicular junction. Anterior cervical fusion is note d. IMPRESSION: No suspicious abnormality to account for right neck pain within the MRI right brachial plexus.
== END | disposition home or self-care (01) ==
LOC: RADMRIMAIN 12:06
PROVIDERS: ATTEND Physician Assistant
DX: M54.2 Cervicalgia (principal)
CPT/HCPCS: 71552; A9585

== ENCOUNTER 2019-11-20 08:03 | Emergency (ER) | payer BC, MEDICARE ==
[2019-11-20 08:11] VITALS: BP 146/89; PULSE 79; RESP 16; TEMP 98.1
--- NOTE | 2019-11-20 08:24 | ED ---
General Adult HPI - General Chief complaint: ENT Stated complaint: foreign body in ear Time Seen by Provider: 11/20/19 08:05 Source: patient, RN notes reviewed, old records reviewed Mode of arrival: ambulatory Limitations: no limitations - History of Present Illness Initial comments: This is a 64-year-old male who states he was using a Q-tip. She is here and he believes the end of the Q-tip is in his left ear. Patient states he pulled the Q-tip out of the ear and there was no cottonand cotton on the end of the Q-tip. Patient states he looked around all over the floor and couldn't find a suicide come emergency department. Patient states is no pain but he feels as though he is hearing a little less clear out of that ear. Patient denies any drainage. Patient denies any fever chills. - Related Data Home Medications Medication Instructions Recorded Confirmed Lisinopril [Zestril] 20 mg PO BID 11/24/15 05/19/19 Simvastatin [Zocor] 40 mg PO AC-SUPPER 11/24/15 05/19/19 Insulin Aspart [NovoLOG Flexpen] 10 units SQ AC-LUNCH 12/15/18 05/19/19 Insulin Aspart [NovoLOG Flexpen] 20 units SQ AC-BID@0900,1800 12/15/18 05/19/19 Insulin Detemir (Levemir) [Levemir] 45 unit SQ AC-BRKFST 12/15/18 05/19/19 Pantoprazole [Protonix] 40 mg PO DAILY 05/09/19 05/19/19 ALPRAZolam [Xanax] 1 mg PO DAILY PRN 05/19/19 05/19/19 Previous Rx's Medication Instructions Recorded Aspirin 81 mg PO DAILY chew 05/12/19 Cyclobenzaprine [Flexeril] 10 mg PO TID #20 tab 08/08/19 Ibuprofen [Motrin] 600 mg PO Q8HR PRN #30 tab 08/08/19 Allergies Allergy/AdvReac Type Severity Reaction Status Date / Time blue dye Allergy Severe Rash/Hives Verified 08/08/19 02:36 codeine Allergy Itching Verified 08/08/19 02:36 naproxen sodium [From Aleve] Allergy Rash/Hives Verified 08/08/19 02:36 ondansetron [From Zofran] Allergy Rash/Hives Verified 11/20/19 08:11 naloxegol [From Movantik] AdvReac Nausea & Verified 08/08/19 02:36 Vomiting Review of Systems ROS Statement: Those systems with pertinent positive or pertinent negative responses have been documented in the HPI. ROS Other: All systems not noted in ROS Statement are negative. Past Medical History Past Medical History: Chest Pain / Angina, CVA/TIA, Diabetes Mellitus, Hearing Disorder / Deafness, Hyperlipidemia, Hypertension Additional Past Medical History / Comment(s): TIA, no residual effects, HX KIDNEY STONE. IBS, HX DIVERTICULITIS. HIATAL HERNIA, perontonial shunt, arthritis History of Any Multi-Drug Resistant Organisms: None Reported Past Surgical History: Back Surgery, Bowel Resection, Orthopedic Surgery Additional Past Surgical History / Comment(s): LEFT KNEE ARTHROSCOPIC. SHUNT 5900-6575 R/T PRESSURE IN SKULL. 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 Patient is in mild distress. EYES Patient's pupils are equal and round. Extraocular motion is intact EARS I examined both ears no is no foreign body needed. SKIN Unremarkable NEURO The patient is alert and oriented 3 PYSCH Patient has normal interpersonal interactions. Limitations: no limitations Course Vital Signs 11/20/19 08:07 Temperature 98.1 F Pulse Rate 79 Respiratory 16 Rate Blood Pressure 146/89 O2 Sat by Pulse 98 Oximetry Medical Decision Making - Medical Decision Making Patient states that it was odd to him that the Q-tip cotton would come off without any strands of cut anywhere and he now believes it it probably never had any cotton on it and he just didn't notice. Disposition Clinical Impression: Foreign body in ear Disposition: HOME SELF-CARE Condition: Good Is patient prescribed a controlled substance at d/c from ED?: No Referrals: Dru Colby MD [Primary Care Provider] - 1-2 days Time of Disposition: 08:24
== END 2019-11-20 08:29 | disposition home or self-care (01) ==
LOC: EC 08:03
DX: T16.9XXA Foreign body in ear, unspecified ear, initial encounter (principal); E11.9 Type 2 diabetes mellitus without complications; E78.5 Hyperlipidemia, unspecified; I10 Essential (primary) hypertension; F17.200 Nicotine dependence, unspecified, uncomplicated; Z86.73 Personal history of transient ischemic attack (TIA), and cerebral infarction without residual deficits; Z79.4 Long term (current) use of insulin; Z79.899 Other long term (current) drug therapy; Z91.048 Other nonmedicinal substance allergy status; Z88.5 Allergy status to narcotic agent; Z88.6 Allergy status to analgesic agent; Z88.8 Allergy status to other drugs, medicaments and biological substances
CPT/HCPCS: 99283

== ENCOUNTER 2019-11-26 03:27 | Emergency (ER) | payer BC, MEDICARE ==
[2019-11-26] MEDS ORDERED: SODIUM CHLORIDE 0.9% 1,000 ML IV STA (03:41)
[2019-11-26 04:10] LABS: Appearance,Urine Clear (Clear); Basophils # (A) 0.1 k/uL (0-0.2); Basophils % (A) 1 %; Bilirubin,Urine Negative (Negative); Blood,Urine Negative (Negative); Color,Urine Yellow; Eosinophils # (A) 0.3 k/uL (0-0.7); Eosinophils % (A) 2 %; Glucose,Urine (UA) 1+ (Negative); HCT 52.4 % (39.0-53.0); HGB 17.1 gm/dL (13.0-17.5); Leukocyte Esterase,Urine Negative (Negative); Lymphocytes # (A) 2.3 k/uL (1.0-4.8); Lymphocytes % (A) 16 %; MCH 30.7 pg (25.0-35.0); MCHC 32.7 g/dL (31.0-37.0); MCV 93.9 fL (80.0-100.0); Mean Platelet Volume 7.4; Monocytes # (A) 0.8 k/uL (0-1.0); Monocytes % (A) 6 %; Mucus,Urine Occasional /hpf; Neutrophils # (A) 10.4 k/uL (1.3-7.7); Neutrophils % (A) 74 %; Nitrite,Urine Negative (Negative); Platelet Count 275 k/uL (150-450); Protein,Urine 2+ (Negative); RBC 5.58 m/uL (4.30-5.90); RBC,Urine <1 /hpf (0-5); WBC 14.1 k/uL (3.8-10.6); WBC,Urine <1 /hpf (0-5)
[2019-11-26 04:19] LABS: Albumin 4.6 g/dL (3.5-5.0); Calcium 9.6 mg/dL (8.4-10.2); Magnesium 1.6 mg/dL (1.6-2.3); Potassium 3.7 mmol/L (3.5-5.1); Total Bilirubin 1.2 mg/dL (0.2-1.3); Total Protein 7.2 g/dL (6.3-8.2)
[2019-11-26 04:25] LABS: Ketones,Urine 2+ (Negative)
--- NOTE | 2019-11-26 04:26 | ED ---
Nausea/Vomiting/Diarrhea HPI - General Chief complaint: Nausea/Vomiting/Diarrhea Stated complaint: NVD Time Seen by Provider: 11/26/19 03:35 Source: patient Mode of arrival: ambulatory Limitations: no limitations - History of Present Illness Initial comments: Daniel is a 64-year-old male with history of hypertension diabetes who presents the ER today for evaluation of 3 days of nausea, dry heaves, generalized malaise and chills. Patient reports that for the past 3 days he's had decreased appetite, he has forced himself to eat but about an hour after eating he develops nausea and has dry heaves. He's not had any vomiting. He has not had any change in bowel or bladder habits. He denies any fevers but reports that he was chilled throughout the day yesterday. He reports generalized malaise and body aches. Patient states that given his age and comorbidities he was concerned he could have coronavirus so decided to come the ER for evaluation. - Related Data Home Medications Medication Instructions Recorded Confirmed Lisinopril [Zestril] 20 mg PO BID 11/24/15 05/19/19 Simvastatin [Zocor] 40 mg PO AC-SUPPER 11/24/15 05/19/19 Insulin Aspart [NovoLOG Flexpen] 10 units SQ AC-LUNCH 12/15/18 05/19/19 Insulin Aspart [NovoLOG Flexpen] 20 units SQ AC-BID@0900,1800 12/15/18 05/19/19 Insulin Detemir (Levemir) [Levemir] 45 unit SQ AC-BRKFST 12/15/18 05/19/19 Pantoprazole [Protonix] 40 mg PO DAILY 05/09/19 05/19/19 ALPRAZolam [Xanax] 1 mg PO DAILY PRN 05/19/19 05/19/19 Previous Rx's Medication Instructions Recorded Aspirin 81 mg PO DAILY chew 05/12/19 Cyclobenzaprine [Flexeril] 10 mg PO TID #20 tab 08/08/19 Ibuprofen [Motrin] 600 mg PO Q8HR PRN #30 tab 08/08/19 Metoclopramide HCl [Reglan] 5 mg PO Q8H PRN #12 tablet 11/26/19 Allergies Allergy/AdvReac Type Severity Reaction Status Date / Time blue dye Allergy Severe Rash/Hives Verified 11/26/19 03:35 codeine Allergy Itching Verified 11/26/19 03:35 naproxen sodium [From Aleve] Allergy Rash/Hives Verified 11/26/19 03:35 ondansetron [From Zofran] Allergy Rash/Hives Verified 11/26/19 03:35 naloxegol [From Movantik] AdvReac Nausea & Verified 11/26/19 03:35 Vomiting Review of Systems ROS Statement: Those systems with pertinent positive or pertinent negative responses have been documented in the HPI. ROS Other: All systems not noted in ROS Statement are negative. Past Medical History Past Medical History: Chest Pain / Angina, CVA/TIA, Diabetes Mellitus, Hearing Disorder / Deafness, Hyperlipidemia, Hypertension Additional Past Medical History / Comment(s): TIA, no residual effects, HX KIDNEY STONE. IBS, HX DIVERTICULITIS. HIATAL HERNIA, perontonial shunt, arthritis History of Any Multi-Drug Resistant Organisms: None Reported Past Surgical History: Back Surgery, Bowel Resection, Orthopedic Surgery Additional Past Surgical History / Comment(s): LEFT KNEE ARTHROSCOPIC. SHUNT [id number] R/T PRESSURE IN SKULL. 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, COLONOSCOPY, NECK FUSION disC to 4,5, 6, Past Anesthesia/Blood Transfusion Reactions: No Reported Reaction Past Psychological History: Anxiety, Depression Smoking Status: Current every day smoker Past Alcohol Use History: None Reported Past Drug Use History: Marijuana - Past Family History Mother Family Medical History: Cancer Additional Family Medical History / Comment(s): kidney Father Family Medical History: Cancer Additional Family Medical History / Comment(s): pancreatic General Exam - General Exam Comments Initial Comments: Physical Exam GENERAL: Patient is well-developed and well-nourished. Patient is nontoxic and well-hydrated and is in no distress. HENT: Normocephalic, Atraumatic. EYES: PERRL, EOMI PULMONARY: Unlabored respirations. CARDIOVASCULAR: RRR Warm and well perfused extremities ABDOMEN: Non-distended Nontender to deep palpation in all quadrants SKIN: No rashes or bruising : Deferred NEUROLOGIC: Alert and oriented Normal speech Normal gait MUSCULOSKELETAL: Moving all extremities with no apparent injury Left hand amputation well healed PSYCHIATRIC: No SI/HI Limitations: no limitations Course Vital Signs 11/26/19 11/26/19 03:29 04:50 Temperature 98 F 98.2 F Pulse Rate 78 79 Respiratory 20 18 Rate Blood Pressure 186/83 164/93 O2 Sat by Pulse 100 98 Oximetry Medical Decision Making - Medical Decision Making Patient was seen and evaluated, history is obtained from patient Healthy well-appearing 64-year-old male 3 days of malaise, nausea no vomiting no change in bowel or bladder habits Physical exam was unremarkable patient was mildly hypertensive Labs and IV fluids were ordered Patient's labs resulted with no significant abnormalities some mild hyperglycemia no anion gap or indication of DKA Urine with some ketones and glucose again I don't believe this is DKA patient did receive fluids he states he takes his morning insulin at 5 AM. S with the patient that his labs are not consistent with what we usually see with coronavirus however there is fast variability in this disease. Considering his minimal symptoms no respiratory involvement no cough no shortness of breath no hypoxia he has no indication for admission and therefore will not be tested. Patient is agreeable to this, return parameters were discussed and patient was discharged home in stable condition. - Lab Data Result diagrams: 11/26/19 03:56 11/26/19 03:56 Lab Results 11/26/19 11/26/19 11/26/19 Range/Units 03:56 03:56 03:56 WBC 14.1 H (3.8-10.6) k/uL RBC 5.58 (4.30-5.90) m/uL Hgb 17.1 (13.0-17.5) gm/dL Hct 52.4 (39.0-53.0) % MCV 93.9 (80.0-100.0) fL MCH 30.7 (25.0-35.0) pg MCHC 32.7 (31.0-37.0) g/dL RDW 13.0 (11.5-15.5) % Plt Count 275 (150-450) k/uL Neutrophils % 74 % Lymphocytes % 16 % Monocytes % 6 % Eosinophils % 2 % Basophils % 1 % Neutrophils # 10.4 H (1.3-7.7) k/uL Lymphocytes # 2.3 (1.0-4.8) k/uL Monocytes # 0.8 (0-1.0) k/uL Eosinophils # 0.3 (0-0.7) k/uL Basophils # 0.1 (0-0.2) k/uL Sodium 138 (137-145) mmol/L Potassium 3.7 (3.5-5.1) mmol/L Chloride 105 (98-107) mmol/L Carbon Dioxide 21 L (22-30) mmol/L Anion Gap 12 mmol/L BUN 18 (9-20) mg/dL Creatinine 1.15 (0.66-1.25) mg/dL Est GFR (CKD-EPI)AfAm 77 (>60 ml/min/1.73 sqM) Est GFR (CKD-EPI)NonAf 67 (>60 ml/min/1.73 sqM) Glucose 180 H (74-99) mg/dL Calcium 9.6 (8.4-10.2) mg/dL Magnesium 1.6 (1.6-2.3) mg/dL Total Bilirubin 1.2 (0.2-1.3) mg/dL AST 18 (17-59) U/L ALT 15 (4-49) U/L Alkaline Phosphatase 106 (38-126) U/L Total Protein 7.2 (6.3-8.2) g/dL Albumin 4.6 (3.5-5.0) g/dL Lipase 101 (23-300) U/L Urine Color Yellow Urine Appearance Clear (Clear) Urine pH 6.0 (5.0-8.0) Ur Specific [place] 1.020 (1.001-1.035) Urine Protein 2+ H (Negative) Urine Glucose (UA) 1+ H (Negative) Urine Ketones 2+ H (Negative) Urine Blood Negative (Negative) Urine Nitrite Negative (Negative) Urine Bilirubin Negative (Negative) Urine Urobilinogen 2.0 (<2.0) mg/dL Ur Leukocyte Esterase Negative (Negative) Urine RBC <1 (0-5) /hpf Urine WBC <1 (0-5) /hpf Urine Mucus Occasional H (None) /hpf Disposition Clinical Impression: Nausea and vomiting Disposition: HOME SELF-CARE Condition: Stable Instructions (If sedation given, give patient instructions): Acute Nausea and Vomiting (ED) Prescriptions: Metoclopramide HCl [Reglan] 5 mg PO Q8H PRN #12 tablet PRN Reason: Nausea Is patient prescribed a controlled substance at d/c from ED?: No Referrals: Dru Colby MD [Primary Care Provider] - 1-2 days
--- NOTE | 2019-11-26 04:30 | XR ---
EXAMINATION TYPE: XR abdomen 2V DATE OF EXAM: 11/26/2019 COMPARISON: 07/09/2018 HISTORY: Nausea and vomiting TECHNIQUE: 3 views supine and upright FINDINGS: There is no sign of intestinal obstruction or pneumoperitoneum. Fecal pattern is normal. Th ere is ventriculoperitoneal shunt catheter. There are no pathologic calcifications over the kidneys. Lung bases are clear. IMPRESSION: Nonacute abdomen. No change.
[2019-11-26] MEDS ORDERED: METOCLOPRAMIDE 5 MG/ML 2 ML VIAL IVP STA (04:36)
[2019-11-26] MEDS ORDERED: diphenhydrAMINE 50 MG/ML 1 ML VIAL IVP STA (04:36)
[2019-11-26 04:52] VITALS: BP 164/93; PULSE 79; RESP 18; TEMP 98.2
== END 2019-11-26 05:30 | disposition home or self-care (01) ==
LOC: EC 03:27
DX: R11.2 Nausea with vomiting, unspecified (principal); R53.81 Other malaise; R68.83 Chills (without fever); E11.65 Type 2 diabetes mellitus with hyperglycemia; I10 Essential (primary) hypertension; E78.5 Hyperlipidemia, unspecified; F41.9 Anxiety disorder, unspecified; F32.9 Major depressive disorder, single episode, unspecified; F17.200 Nicotine dependence, unspecified, uncomplicated; Z79.4 Long term (current) use of insulin; Z79.899 Other long term (current) drug therapy; Z91.02 Food additives allergy status; Z88.5 Allergy status to narcotic agent; Z88.6 Allergy status to analgesic agent; Z88.8 Allergy status to other drugs, medicaments and biological substances; Z86.73 Personal history of transient ischemic attack (TIA), and cerebral infarction without residual deficits; Z98.1 Arthrodesis status
CPT/HCPCS: 99284; 96374; 96375; 96361 ×2; 36415; 80053; 83690; 83735; 85025; 81001; 74019; J1200; J2765

== ENCOUNTER 2019-11-27 10:49 | Observation (INO) | payer BC, MEDICARE ==
[2019-11-27] MEDS ORDERED: NITROGLYCERIN OINT 1 INCH/GM PACKET TOPICAL STA (11:06)
[2019-11-27] MEDS ORDERED: ASPIRIN 81 MG PO STA (11:06)
--- NOTE | 2019-11-27 11:09 | ED ---
General Adult HPI - General Chief complaint: Chest Pain Stated complaint: chest pain Time Seen by Provider: 11/27/19 10:50 Source: patient, RN notes reviewed, old records reviewed Mode of arrival: ambulatory Limitations: no limitations - History of Present Illness Initial comments: This is a 64-year-old male with a past medical history significant for smoking diabetes hypertension and high cholesterol. Patient states last night he had chest pressure and it kept waking him up throughout the night. Patient states he also had associated shortness of breath and some sweating episodes. Patient denies any nausea. Patient states at one point the pain did seem to radiate to his back. Patient states that the pain is much better now but still exists and he describes it as a discomfort. Patient denies any recent fever chills or cough. Patient denies any lightheadedness or dizziness. Patient denies headache patient denies numbness weakness. Patient denies abdominal pain patient denies nausea vomiting or diarrhea. Patient denies any conjunctival symptoms. - Related Data Home Medications Medication Instructions Recorded Confirmed Lisinopril [Zestril] 20 mg PO BID 11/24/15 11/27/19 Simvastatin [Zocor] 40 mg PO AC-SUPPER 11/24/15 11/27/19 Insulin Aspart [NovoLOG Flexpen] 10 units SQ AC-LUNCH 12/15/18 11/27/19 Insulin Aspart [NovoLOG Flexpen] 20 units SQ AC-BID@0900,1800 12/15/18 11/27/19 Insulin Detemir (Levemir) [Levemir] 45 unit SQ QAM@0500 12/15/18 11/27/19 Pantoprazole [Protonix] 40 mg PO DAILY 05/09/19 11/27/19 ALPRAZolam [Xanax] 0.5 mg PO BID PRN 11/27/19 11/27/19 Acetaminophen Tab [Tylenol] 1,000 mg PO Q6H PRN 11/27/19 11/27/19 Aspirin 325 mg PO ONCE 11/27/19 11/27/19 Atenolol 25 mg PO DAILY 11/27/19 11/27/19 Previous Rx's Medication Instructions Recorded Aspirin 81 mg PO DAILY chew 05/12/19 Metoclopramide HCl [Reglan] 5 mg PO Q8H PRN #12 tablet 11/26/19 Allergies Allergy/AdvReac Type Severity Reaction Status Date / Time blue dye Allergy Severe Rash/Hives Verified 11/27/19 12:05 codeine Allergy Itching Verified 11/27/19 12:05 naproxen sodium [From Aleve] Allergy Rash/Hives Verified 11/27/19 12:05 ondansetron [From Zofran] Allergy Rash/Hives Verified 11/27/19 12:05 naloxegol [From Movantik] AdvReac Nausea & Verified 11/27/19 12:05 Vomiting Review of Systems ROS Statement: Those systems with pertinent positive or pertinent negative responses have been documented in the HPI. ROS Other: All systems not noted in ROS Statement are negative. Past Medical History Past Medical History: Chest Pain / Angina, CVA/TIA, Diabetes Mellitus, Hearing Disorder / Deafness, Hyperlipidemia, Hypertension Additional Past Medical History / Comment(s): TIA, no residual effects, HX KIDNEY STONE. IBS, HX DIVERTICULITIS. HIATAL HERNIA, perontonial shunt, arthritis History of Any Multi-Drug Resistant Organisms: None Reported Past Surgical History: Back Surgery, Bowel Resection, Orthopedic Surgery Additional Past Surgical History / Comment(s): LEFT KNEE ARTHROSCOPIC. SHUNT [id number] R/T PRESSURE IN SKULL. 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 Patient is nontoxic and well- hydrated and is in mild distress. ENT: Neck is soft and supple. No significant lymphadenopathy is noted. Oropharynx is clear. Moist mucous membranes. Neck has full range of motion without eliciting any pain. EYES: The sclera were anicteric and conjunctiva were pink and moist. Extraocular movements were intact and pupils were equal round and reactive to light. Eyelids were unremarkable. PULMONARY: Unlabored respirations. Good breath sounds bilaterally. No audible rales rhonchi or wheezing was noted. CARDIOVASCULAR: There is a regular rate and rhythm without any murmurs gallops or rubs. ABDOMEN: Soft and nontender with normal bowel sounds. SKIN: Skin is clear with no lesions or rashes and otherwise unremarkable. NEUROLOGIC: Patient is alert and oriented x3. Cranial nerves II through XII are grossly intact. Motor and sensory are also intact. Normal speech, volume and content. Symmetrical smile. MUSCULOSKELETAL: Normal extremities with adequate strength and full range of motion. LYMPHATICS: No significant lymphadenopathy is noted PSYCHIATRIC: Normal psychiatric evaluation. Limitations: no limitations Course Vital Signs 11/27/19 11/27/19 10:50 11:28 Temperature 98.8 F Pulse Rate 74 71 Respiratory 18 18 Rate Blood Pressure 195/100 181/94 O2 Sat by Pulse 96 98 Oximetry Medical Decision Making - Medical Decision Making EKG shows normal sinus rhythm at 75 bpm MA interval 168 QRS is 78 QT interval 370 QTC is 422. Patient's EKG shows no ST segment elevation or depression. Patient had unstable angina/started on heparin in the emergency department. I spoke with Dr. Almaguer he agreed to admit the patient admitted the patient wrote admitting orders I consult cardiology continued heparin and aspirin Nitropaste on the floor. - Lab Data Result diagrams: 11/27/19 11:10 11/27/19 11:10 Lab Results 11/27/19 11/27/19 11/27/19 Range/Units 11:10 11:10 11:10 WBC 10.2 (3.8-10.6) k/uL RBC 5.33 (4.30-5.90) m/uL Hgb 16.5 (13.0-17.5) gm/dL Hct 49.5 (39.0-53.0) % MCV 92.9 (80.0-100.0) fL MCH 30.9 (25.0-35.0) pg MCHC 33.2 (31.0-37.0) g/dL RDW 12.9 (11.5-15.5) % Plt Count 278 (150-450) k/uL Neutrophils % 74 % Lymphocytes % 16 % Monocytes % 6 % Eosinophils % 2 % Basophils % 1 % Neutrophils # 7.5 (1.3-7.7) k/uL Lymphocytes # 1.6 (1.0-4.8) k/uL Monocytes # 0.6 (0-1.0) k/uL Eosinophils # 0.2 (0-0.7) k/uL Basophils # 0.1 (0-0.2) k/uL PT 11.6 (9.0-12.0) sec INR 1.1 (<1.2) APTT 25.4 (22.0-30.0) sec Sodium 138 (137-145) mmol/L Potassium 4.5 (3.5-5.1) mmol/L Chloride 108 H (98-107) mmol/L Carbon Dioxide 21 L (22-30) mmol/L Anion Gap 9 mmol/L BUN 19 (9-20) mg/dL Creatinine 1.07 (0.66-1.25) mg/dL Est GFR (CKD-EPI)AfAm 85 (>60 ml/min/1.73 sqM) Est GFR (CKD-EPI)NonAf 73 (>60 ml/min/1.73 sqM) Glucose 162 H (74-99) mg/dL Calcium 9.6 (8.4-10.2) mg/dL Magnesium 1.7 (1.6-2.3) mg/dL Total Bilirubin 1.4 H (0.2-1.3) mg/dL AST 28 (17-59) U/L ALT 16 (4-49) U/L Alkaline Phosphatase 87 (38-126) U/L Troponin I (0.000-0.034) ng/mL Total Protein 7.2 (6.3-8.2) g/dL Albumin 4.5 (3.5-5.0) g/dL 11/27/19 Range/Units 11:10 WBC (3.8-10.6) k/uL RBC (4.30-5.90) m/uL Hgb (13.0-17.5) gm/dL Hct (39.0-53.0) % MCV (80.0-100.0) fL MCH (25.0-35.0) pg MCHC (31.0-37.0) g/dL RDW (11.5-15.5) % Plt Count (150-450) k/uL Neutrophils % % Lymphocytes % % Monocytes % % Eosinophils % % Basophils % % Neutrophils # (1.3-7.7) k/uL Lymphocytes # (1.0-4.8) k/uL Monocytes # (0-1.0) k/uL Eosinophils # (0-0.7) k/uL Basophils # (0-0.2) k/uL PT (9.0-12.0) sec INR (<1.2) APTT (22.0-30.0) sec Sodium (137-145) mmol/L Potassium (3.5-5.1) mmol/L Chloride (98-107) mmol/L Carbon Dioxide (22-30) mmol/L Anion Gap mmol/L BUN (9-20) mg/dL Creatinine (0.66-1.25) mg/dL Est GFR (CKD-EPI)AfAm (>60 ml/min/1.73 sqM) Est GFR (CKD-EPI)NonAf (>60 ml/min/1.73 sqM) Glucose (74-99) mg/dL Calcium (8.4-10.2) mg/dL Magnesium (1.6-2.3) mg/dL Total Bilirubin (0.2-1.3) mg/dL AST (17-59) U/L ALT (4-49) U/L Alkaline Phosphatase (38-126) U/L Troponin I <0.012 (0.000-0.034) ng/mL Total Protein (6.3-8.2) g/dL Albumin (3.5-5.0) g/dL Critical Care Time Critical Care Time: Yes Total Critical Care Time: 35 Disposition Clinical Impression: Unstable angina pectoris Disposition: ADMITTED IP TO THIS [facility] Referrals: Dru Colby MD [Primary Care Provider] - 1-2 days Time of Disposition: 13:26
[2019-11-27 11:28] LABS: Basophils # (A) 0.1 k/uL (0-0.2); Basophils % (A) 1 %; Eosinophils # (A) 0.2 k/uL (0-0.7); Eosinophils % (A) 2 %; HCT 49.5 % (39.0-53.0); HGB 16.5 gm/dL (13.0-17.5); Lymphocytes # (A) 1.6 k/uL (1.0-4.8); Lymphocytes % (A) 16 %; MCH 30.9 pg (25.0-35.0); MCHC 33.2 g/dL (31.0-37.0); MCV 92.9 fL (80.0-100.0); Mean Platelet Volume 7.3; Monocytes # (A) 0.6 k/uL (0-1.0); Monocytes % (A) 6 %; Neutrophils # (A) 7.5 k/uL (1.3-7.7); Neutrophils % (A) 74 %; Platelet Count 278 k/uL (150-450); RBC 5.33 m/uL (4.30-5.90); RDW 12.9 % (11.5-15.5); WBC 10.2 k/uL (3.8-10.6)
--- NOTE | 2019-11-27 11:48 | XR ---
EXAMINATION TYPE: XR chest 2V DATE OF EXAM: 11/27/2019 COMPARISON: Chest x-ray July 11, 2019. HISTORY: Chest pain and tachycardia. TECHNIQUE: Frontal and lateral views of the chest are obtained. FINDINGS: Suspect overlying right-sided DEVELOPMENT WRITER shunt catheter. There is chronic ankle change without blayne picious focal air space opacity, pleural effusion, or pneumothorax seen. The cardiac silhouette size remains within normal limits. The osseous structures are intact. Overlying EKG leads are redemonst rated. IMPRESSION: Chronic changes without acute pulmonary process.
[2019-11-27 11:55] LABS: Albumin 4.5 g/dL (3.5-5.0); Calcium 9.6 mg/dL (8.4-10.2); Magnesium 1.7 mg/dL (1.6-2.3); Total Bilirubin 1.4 mg/dL (0.2-1.3); Total Protein 7.2 g/dL (6.3-8.2)
[2019-11-27 12:05] LABS: INR 1.1 (<1.2); Partial Thromboplastin Time 25.4 sec (22.0-30.0); Prothrombin Time 11.6 sec (9.0-12.0)
[2019-11-27 12:25] LABS: Potassium 4.5 mmol/L (3.5-5.1)
[2019-11-27] MEDS ORDERED: HEPARIN SODIUM,PORCINE 5,000 UNIT/ML 1 ML VIAL IV ONE (13:22)
[2019-11-27] MEDS ORDERED: NITROGLYCERIN SL TABS 0.4 MG TAB SUBLINGUAL PRN (13:26)
[2019-11-27] MEDS ORDERED: HEPARIN SOD,PORK IN 0.45% NACL 25,000 UNIT in 0.45% NACL 1 250ML.BAG IV SCH (13:30)
[2019-11-27] MEDS ORDERED: METOCLOPRAMIDE 5 MG TAB PO PRN (17:05)
[2019-11-27] MEDS ORDERED: ALPRAZolam 0.5 MG TAB PO PRN (17:05)
[2019-11-27 17:11] LABS: Glucose,Whole Blood 81 mg/dL (75-99)
[2019-11-27] MEDS ORDERED: ATORVASTATIN 20 MG TAB PO SCH (17:30)
[2019-11-27] MEDS: INSULIN ASPART (NovoLOG) 100 UNIT/ML VIAL SQ SCH ×3 (17:42→20:59)
--- NOTE | 2019-11-27 18:05 | HP ---
HISTORY AND PHYSICAL DATE OF SERVICE: 11/27/2019 CHIEF COMPLAINTS: Chest pain and vomiting. HISTORY OF PRESENT ILLNESS: This 64-year-old gentleman with a past medical history of multiple medical problems, including history of chest pain, CVA, TIA, diabetes mellitus, type 2, history of hypertension, hyperlipidemia, TIA, history of back surgery, bowel resection, being followed by Dr. Dru Colby in the outpatient setting, was admitted last year with chest pain. Apparently his stress test was negative. Currently the patient has been having severe anorexia for the last 4 or 5 days followed by significant vomiting, and now the patient is complaining of pressure type of pain in the low part of the chest. The patient came to [facility] and was admitted for further evaluation and treatment. Initial troponin was less than 0.012. The initial EKG showed no acute changes. The patient was admitted for further evaluation and treatment. There is no history of any fever, rigor or chills. No history of headache, loss of consciousness, seizures. Occasional cough is reported. PAST MEDICAL HISTORY: History of CVA, TIA, diabetes mellitus, type 2, hiatal hernia, hyperlipidemia, hypertension, TIA, history of back surgery, bowel resection. HOME MEDICATIONS: 1. Zocor 40 mg p.o. at supper. 2. Protonix 40 mg p.o. daily. 3. Reglan 5 mg q.8 p.r.n. 4. Zestril 20 mg p.o. b.i.d. 5. Levemir 45 units subcutaneously each morning. 6. NovoLog FlexPen 10 units before lunch. 7. NovoLog FlexPen 20 units before meals b.i.d. 8. Atenolol 25 mg p.o. daily. 9. Aspirin 81 mg daily. 10.Tylenol 1000 mg q.6 p.r.n. 11.Xanax 0.5 b.i.d. p.r.n. ALLERGIES: BLUE DYE, CODEINE, NAPROSYN, ZOFRAN, NALOXEGOL. FAMILY HISTORY: History of kidney cancer in the family. SOCIAL HISTORY: History of smoking. Occasional THC. REVIEW OF SYSTEMS: ENT: No diminished hearing. No diminished vision. CARDIOVASCULAR SYSTEM: As mentioned earlier. RESPIRATORY SYSTEM: As mentioned earlier. GI: As mentioned earlier. : No dysuria or retention. NERVOUS SYSTEM: No numbness, weakness. ALLERGY/IMMUNOLOGY: No asthma, hayfever. MUSCULOSKELETAL: As mentioned earlier. HEMATOLOGY/ONCOLOGY: No history of anemia. ENDOCRINE: Diabetes. CONSTITUTIONAL: As mentioned earlier. DERMATOLOGY: Negative. RHEUMATOLOGY: Negative. PSYCHIATRY: As mentioned earlier. PHYSICAL EXAMINATION: Patient alert and oriented x3. Pulse 67, blood pressure 147/90, respirations 16, temperature 98.9, pulse ox 99% on 2 L. HEENT: Conjunctivae normal. Oral mucosa moist. NECK: No jugular venous distention. No carotid bruit. No lymph node enlargement. CARDIOVASCULAR SYSTEM: S1, S2 muffled. RESPIRATORY SYSTEM: Breath sounds diminished at the bases. No rhonchi. No crackles. ABDOMEN: Soft. Mild diffuse discomfort on palpation in the epigastrium. No guarding. No rigidity. No mass palpable. LEGS: No edema. No swelling. NERVOUS SYSTEM: Higher functions as mentioned earlier. Moves all 4 limbs. No focal motor or sensory deficit. LYMPHATICS: No lymph node palpable in neck, axillae or groin. SKIN: No ulcer, rash, bleeding. JOINTS: No active deforming arthropathy. LABS: CBC within normal limits. CO2 is 21, glucose 162. Total bilirubin is 1.4. ASSESSMENT: 1. Chest pain; rule out acute coronary syndrome unstable angina. 2. Incessant vomiting; rule out acute gastritis, gastroesophageal reflux disease. 3. Rule out COVID-19. 4. Increased bilirubin. 5. Decreased carbon dioxide. 6. History of chest pain previously with negative stress test last year. 7. History of cerebrovascular accident, transient ischemic attack. 8. Diabetes mellitus, type 2. 9. Hearing difficulty, deafness. 10.Hypertension. 11.Hyperlipidemia. 12.History of transient ischemic attack. 13.History of nephrolithiasis. 14.History of diverticulitis. 15.Hiatal hernia. 16.History of ventriculoperitoneal shunt for possible normal-pressure hydrocephalus. 17.History of degenerative joint disease. 18.History of back surgery. 19.History of bowel resection. 20.History of anxiety, depression. 21.Continued ongoing nicotine dependence. RECOMMENDATIONS AND DISCUSSION: In this 64-year-old gentleman who presented with multiple complex medical issues, we will monitor the patient closely, continue the current medications, continue with symptomatic treatment. Otherwise, cardiology consult. Rule out myocardial infarction. I will test COVID. Symptomatic treatment will be provided. Resume the home medications. Prognosis is guarded because of multiple complex medical issues. Further recommendations to follow. A copy of this dictation is being forwarded to Dr. Dru Colby, who is the primary physician. MMELIASL / IJN: [id number] / MTDD
[2019-11-27] MEDS: ACETAMINOPHEN TAB 500 MG TAB PO PRN (18:39)
[2019-11-27] MEDS: NITROGLYCERIN OINT 1 INCH/GM PACKET TOPICAL SCH ×2 (18:40→23:20)
[2019-11-27 20:50] LABS: Glucose,Whole Blood 208 mg/dL (75-99)
[2019-11-27] MEDS: LISINOPRIL 20 MG TAB PO SCH (20:58)
[2019-11-27] MEDS: PANTOPRAZOLE 40 MG/10 ML VIAL IVP SCH (20:59)
[2019-11-27 23:25] LABS: Appearance,Urine Clear (Clear); Bilirubin,Urine Negative (Negative); Blood,Urine Small (Negative); Color,Urine Yellow; Glucose,Urine (UA) Trace (Negative); Ketones,Urine Negative (Negative); Leukocyte Esterase,Urine Negative (Negative); Mucus,Urine Occasional /hpf; Nitrite,Urine Negative (Negative); PH, Urine 5.5 (5.0-8.0); Protein,Urine 1+ (Negative); RBC,Urine 8 /hpf (0-5); Specific Gravity,Urine 1.024 (1.001-1.035); Squamous Epithelial Cell,Urine <1 /hpf (0-4); Urobilinogen,Urine <2.0 mg/dL (<2.0); WBC,Urine <1 /hpf (0-5)
[2019-11-27 23:39] LABS: Amphetamine Screen,Urine Not Detected (NotDetected); Barbiturate Screen,Urine Not Detected (NotDetected); Benzodiazepines Screen,Urine Not Detected (NotDetected); Cocaine Screen,Urine Not Detected (NotDetected); Methadone Screen, Urine Not Detected (NotDetected); Opiate Screen,Urine Not Detected (NotDetected); Oxycodone Screen, Urine Not Detected (NotDetected); Phencyclidine Screen,Urine Not Detected (NotDetected); Tricyclic Antidepressant,Urine Not Detected (NotDetected); Urn Cannabinoid Scrn Detected (NotDetected)
[2019-11-28] MEDS: ACETAMINOPHEN TAB 500 MG TAB PO PRN (02:41)
[2019-11-28] MEDS ORDERED: BUTALB/APAP/CAFF 50-325-40MG TAB PO PRN (04:23)
[2019-11-28] MEDS: NICOTINE 21MG/24HR PATCH TRANSDERM SCH ×2 (04:31→09:54)
[2019-11-28 04:47] VITALS: TEMP 97.7
[2019-11-28 06:01] LABS: Glucose,Whole Blood 133 mg/dL (75-99)
[2019-11-28] MEDS: NITROGLYCERIN OINT 1 INCH/GM PACKET TOPICAL SCH (06:53)
[2019-11-28] MEDS: INSULIN ASPART (NovoLOG) 100 UNIT/ML VIAL SQ SCH ×2 (06:53→11:54)
[2019-11-28] MEDS ORDERED: INSULIN DETEMIR (LEVEMIR) 100 UNIT/ML SYR SQ SCH (07:00)
[2019-11-28 07:31] LABS: Basophils # (A) 0.1 k/uL (0-0.2); Basophils % (A) 1 %; Eosinophils # (A) 0.2 k/uL (0-0.7); Eosinophils % (A) 2 %; HCT 46.3 % (39.0-53.0); HGB 15.1 gm/dL (13.0-17.5); Lymphocytes # (A) 1.8 k/uL (1.0-4.8); Lymphocytes % (A) 14 %; MCH 31.2 pg (25.0-35.0); MCHC 32.6 g/dL (31.0-37.0); MCV 95.7 fL (80.0-100.0); Mean Platelet Volume 7.3; Monocytes # (A) 0.7 k/uL (0-1.0); Monocytes % (A) 5 %; Neutrophils # (A) 9.7 k/uL (1.3-7.7); Neutrophils % (A) 76 %; Platelet Count 200 k/uL (150-450); RBC 4.83 m/uL (4.30-5.90); WBC 12.6 k/uL (3.8-10.6)
[2019-11-28 07:58] LABS: Calcium 8.7 mg/dL (8.4-10.2); Potassium 3.9 mmol/L (3.5-5.1)
[2019-11-28 08:01] VITALS: BP 175/85; PULSE 72; RESP 18
[2019-11-28] MEDS: PANTOPRAZOLE 40 MG/10 ML VIAL IVP SCH (08:19)
[2019-11-28] MEDS: LISINOPRIL 20 MG TAB PO SCH (08:19)
[2019-11-28] MEDS ORDERED: ATENOLOL 25 MG TAB PO SCH (09:00)
[2019-11-28] MEDS ORDERED: ASPIRIN 325 MG TAB PO SCH (09:00)
--- NOTE | 2019-11-28 09:33 | P.CRDCN ---
History of Present Illness History of present illness: HISTORY OF PRESENTING ILLNESS This is a pleasant 64-year-old male past medical history significant for diabetes mellitus, hypertension, dyslipidemia, TIA and chronic nicotine depe ndence. He follows in the office with Dr. Guillen. We have been asked to see in consultation for chest pain. He states for the previous 3 days he has been experiencing nausea and vomiting with some feelings of chills at times. No documented fevers. Yesterday he started having discomfort in his chest described as a pressure sensation in the midsternal region. There is no radiation to the arm, back, neck or jaw. This was not associated with activity or exertion. The symptoms are brief and subsided on their own. He is currently chest pain-free. He underwent stress testing in the hospital May 2019. Persantine stress test was negative for reversible cardiac ischemia. Echocardiogram obtained at that time revealed preserved LV systolic function with ejection fraction 60-65%. DIAGNOSTICS EKG reveals sinus mechanism with no acute ST or T-wave abnormalities. Chest xray chronic changes with no acute cardiopulmonary process. Laboratory reviewed, CBC 12.6, hemoglobin 15.1, platelets 200, sodium 138, potassium 3.9, creatinine 1.04, magnesium 1.7, cardiac enzymes negative 3, LDL 59 and HDL 36. Covid negative. Current cardiac medications include simvastatin 40 mg daily, lisinopril 20 mg twice a day, atenolol 25 mg daily and aspirin 81 mg daily. REVIEW OF SYSTEMS At the time of my exam: CONSTITUTIONAL: Denies fever or chills. CARDIOVASCULAR: Denies chest pain, shortness of breath, orthopnea, PND or palpitations. RESPIRATORY: Denies cough. GASTROINTESTINAL: Denies abdominal pain, diarrhea, constipation, nausea or vomiting. MUSCULOSKELETAL: Denies myalgias. NEUROLOGIC: Complains of headache. Denies numbness, tingling or weakness. ENDOCRINE: Denies fatigue, weight change, polydipsia or polyurina. GENITOURINARY: Denies burning, hematuria or urgency with micturation. HEMATOLOGIC: Denies history of anemia or bleeding. PHYSICAL EXAMINATION Blood pressure 175/85 heart rate 82 afebrile and maintaining oxygen saturation on room air. CONSTITUTIONAL: No apparent distress. HEENT: Head is normocephalic. Pupils are equal, round. Sclerae anicteric. Mucous membranes of the mouth are moist. No JVD. No carotid bruit. CHEST EXAMINATION: Faint expiratory wheeze, no rhonchi or rales. No chest wall tenderness is noted on palpation or with deep breathing. HEART EXAMINATION: Regular rate and rhythm. S1, S2 heard. No murmurs, gallops or rub. ABDOMEN: Soft, nontender. Positive bowel sounds. EXTREMITIES: 2+ peripheral pulses, no lower extremity edema and no calf tenderness. NEUROLOGIC EXAMINATION: Patient is awake, alert and oriented x3. ASSESSMENT Chest pain, atypical. An acute coronary event has been ruled out. Leukocytosis Hypertension Dyslipidemia Diabetes mellitus Chronic nicotine dependence PLAN An acute coronary event has been ruled out. Heparin infusion can be discontinued. Obtain 2-D echocardiogram and Doppler study to assess cardiac structure and func tion. Discontinue Nitropaste as it is causing his headache. Continue to monitor for another 24 hours. If his symptoms change and become more typical, he has EKG changes or echocardiographic abnormalities we may consider coronary angiography. Further recommendations to follow based upon clinical course. Thank you kindly for this consultation. Nurse Practitioner note has been reviewed, I agree with a documented findings and plan of care. Patient was seen and examined. Past Medical History Past Medical History: Chest Pain / Angina, CVA/TIA, Diabetes Mellitus, Hearing Disorder / Deafness, Hyperlipidemia, Hypertension Additional Past Medical History / Comment(s): TIA, no residual effects, HX KIDNEY STONE. IBS, HX DIVERTICULITIS. HIATAL HERNIA, perontonial shunt, arthritis History of Any Multi-Drug Resistant Organisms: None Reported Past Surgical History: Back Surgery, Bowel Resection, Orthopedic Surgery Additional Past Surgical History / Comment(s): LEFT KNEE ARTHROSCOPIC. SHUNT [id number] R/T PRESSURE IN SKULL. 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 2020 right elbow surgery on tendens Past Anesthesia/Blood Transfusion Reactions: No Reported Reaction Past Psychological History: Anxiety, Depression Smoking Status: Current every day smoker Past Alcohol Use History: None Reported Additional Past Alcohol Use History / Comment(s): STARTED SMOKING AT AGE 15 SMO KES 1PPD; Past Drug Use History: Marijuana Additional Drug Use History / Comment(s): occasional use - Past Family History Mother Family Medical History: Cancer Additional Family Medical History / Comment(s): kidney Father Family Medical History: Cancer Additional Family Medical History / Comment(s): pancreatic Medications and Allergies Home Medications Medication Instructions Recorded Confirmed Type Lisinopril [Zestril] 20 mg PO BID 11/24/15 11/27/19 History Simvastatin [Zocor] 40 mg PO AC-SUPPER 11/24/15 11/27/19 History Insulin Aspart [NovoLOG Flexpen] 10 units SQ AC-LUNCH 12/15/18 11/27/19 History Insulin Aspart [NovoLOG Flexpen] 20 units SQ AC-BID@0900,1800 12/15/18 11/27/19 History Insulin Detemir (Levemir) [Levemir] 45 unit SQ QAM@0500 12/15/18 11/27/19 History Pantoprazole [Protonix] 40 mg PO DAILY 05/09/19 11/27/19 History Aspirin 81 mg PO DAILY chew 05/12/19 11/27/19 Rx Metoclopramide HCl [Reglan] 5 mg PO Q8H PRN #12 tablet 11/26/19 11/27/19 Rx ALPRAZolam [Xanax] 0.5 mg PO BID PRN 11/27/19 11/27/19 History Acetaminophen Tab [Tylenol] 1,000 mg PO Q6H PRN 11/27/19 11/27/19 History Aspirin 325 mg PO ONCE 11/27/19 11/27/19 History Atenolol 25 mg PO DAILY 11/27/19 11/27/19 History Allergies Allergy/AdvReac Type Severity Reaction Status Date / Time blue dye Allergy Severe Rash/Hives Verified 11/27/19 12:05 codeine Allergy Itching Verified 11/27/19 12:05 naproxen sodium [From Aleve] Allergy Rash/Hives Verified 11/27/19 12:05 ondansetron [From Zofran] Allergy Rash/Hives Verified 11/27/19 12:05 naloxegol [From Movantik] AdvReac Nausea & Verified 11/27/19 12:05 Vomiting Physical Exam Vitals: Vital Signs Temp Pulse Pulse Resp BP BP Pulse Ox 11/28/19 04:00 97.7 F 65 19 138/74 95 11/27/19 23:34 97.8 F 81 15 129/70 94 L 11/27/19 20:00 97.8 F 72 17 134/66 94 L 11/27/19 16:00 98.0 F 72 18 146/83 97 11/27/19 13:49 98.4 F 60 20 140/71 99 11/27/19 13:31 98.9 F 67 16 147/90 99 11/27/19 11:28 71 18 181/94 98 11/27/19 10:50 98.8 F 74 18 195/100 96 Intake and Output 11/27/19 11/28/19 11/28/19 22:59 06:59 14:59 Intake Total 540 Balance 540 Intake: Oral 540 Other: Voiding Method Urinal Urinal # Voids 1 0 # Bowel Movements 0 Weight 92 kg Results 11/28/19 06:55 11/28/19 06:55 Cardiac Enzymes 11/27/19 11/27/19 11/27/19 Range/Units 11:10 11:10 16:26 AST 28 (17-59) U/L Troponin I <0.012 0.016 (0.000-0.034) ng/mL 11/27/19 Range/Units 23:00 AST (17-59) U/L Troponin I <0.012 (0.000-0.034) ng/mL Coagulation 11/27/19 11/27/19 Range/Units 11:10 20:16 PT 11.6 (9.0-12.0) sec APTT 25.4 56.5 H (22.0-30.0) sec CBC 11/27/19 11/28/19 Range/Units 11:10 06:55 WBC 10.2 12.6 H (3.8-10.6) k/uL RBC 5.33 4.83 (4.30-5.90) m/uL Hgb 16.5 15.1 (13.0-17.5) gm/dL Hct 49.5 46.3 (39.0-53.0) % Plt Count 278 200 (150-450) k/uL Comprehensive Metabolic Panel 11/27/19 Range/Units 11:10 Sodium 138 (137-145) mmol/L Potassium 4.5 (3.5-5.1) mmol/L Chloride 108 H (98-107) mmol/L Carbon Dioxide 21 L (22-30) mmol/L BUN 19 (9-20) mg/dL Creatinine 1.07 (0.66-1.25) mg/dL Glucose 162 H (74-99) mg/dL Calcium 9.6 (8.4-10.2) mg/dL AST 28 (17-59) U/L ALT 16 (4-49) U/L Alkaline Phosphatase 87 (38-126) U/L Total Protein 7.2 (6.3-8.2) g/dL Albumin 4.5 (3.5-5.0) g/dL Current Medications Generic Name Dose Route Start Last Admin Trade Name Freq PRN Reason Stop Dose Admin Acetaminophen 1,000 mg 11/27/19 17:05 11/28/19 02:41 Tylenol Tab PO 1,000 mg Q6H PRN Administration Pain Acetaminophen/Butalbital/Caffeine 1 each 11/28/19 04:23 11/28/19 04:30 Fioricet 50-325-40 PO 1 each Q4HR PRN Administration Headache Alprazolam 0.5 mg 11/27/19 17:05 11/27/19 20:59 Xanax PO 0.5 mg BID PRN Administration Anxiety Aspirin 325 mg 11/28/19 09:00 Aspirin PO DAILY [facility] Atenolol 25 mg 11/28/19 09:00 Tenormin PO DAILY [facility] Atorvastatin Calcium 20 mg 11/27/19 17:30 11/27/19 18:40 Lipitor PO 20 mg AC-SUPPER [facility] Administration Heparin Sodium/Sodium Chloride 250 mls @ 10.006 mls/hr 11/27/19 13:30 11/27/19 13:59 25,000 unit/ Sodium Chloride IV 10.92 units/kg/hr .Q24H OPAL 10.006 mls/hr Administration Protocol 10.92 UNITS/KG/HR Insulin Aspart 20 unit 11/27/19 18:00 11/27/19 18:13 Novolog SQ Not Given AC-BID@0900,1800 [facility] Insulin Aspart 10 unit 11/28/19 12:30 Novolog SQ AC-LUNCH [facility] Insulin Aspart 0 unit 11/27/19 17:30 11/28/19 06:53 Novolog SQ 1 unit ACHS [facility] Administration Protocol Insulin Detemir 45 unit 11/28/19 07:00 11/28/19 06:53 Levemir SQ 45 unit QAM@0700 [facility] Administration Lisinopril 20 mg 11/27/19 21:00 11/27/19 20:58 Zestril PO 20 mg BID OPAL Administration Metoclopramide HCl 5 mg 11/27/19 17:05 Reglan PO Q8H PRN Nausea Nicotine 1 patch 11/28/19 04:25 11/28/19 04:31 Habitrol 21mg/24hr Patch TRANSDERM 1 patch DAILY OPAL Administration Nitroglycerin 0.4 mg 11/27/19 13:26 Nitrostat SUBLINGUAL Q5M PRN Chest Pain Nitroglycerin 1 inch 11/27/19 18:00 11/28/19 06:53 Nitro-Bid Oint TOPICAL 1 inch Q6HR OPAL Administration Pantoprazole Sodium 40 mg 11/27/19 21:00 11/27/19 20:59 Protonix IVP 40 mg BID OPAL Administration Intake and Output 11/27/19 11/28/19 11/28/19 22:59 06:59 14:59 Intake Total 540 Balance 540 Intake: Oral 540 Other: Voiding Method Urinal Urinal # Voids 1 0 # Bowel Movements 0 Weight 92 kg 11/28/19 06:55 11/27/19 11:10
[2019-11-28 11:41] LABS: Glucose,Whole Blood 115 mg/dL (75-99)
[2019-11-28] MEDS ORDERED: INSULIN ASPART (NovoLOG) 100 UNIT/ML VIAL SQ SCH (12:30)
--- NOTE | 2019-11-28 21:05 | DS ---
DISCHARGE SUMMARY DATE OF SERVICE: 11/28/2019 FINAL DIAGNOSES: 1. Chest pain, myocardial infarction ruled out. Rule out coronary artery disease. 2. Incessant vomiting possible acute gastritis and gastroesophageal reflux disease. 3. Covid-19 test negative. 4. Increased bilirubin. 5. Decreased CO2. 6. History of chest pain. Previous negative stress test. 7. History of cerebrovascular accident, transient ischemic attack. 8. Diabetes type 2. 9. History of hearing difficulty, deafness. 10.Hypertension. 11.Hyperlipidemia. 12.History of transient ischemic attack. 13.History of nephrolithiasis. 14.History of diverticulitis. 15.History of hiatal hernia. 16.History of OUTSIDE UPHOLSTERER shunt for possible NPH. 17.History of degenerative joint disease. 18.History of back surgery. 19.History of bowel resection. 20.History of anxiety, depression. 21.Continued ongoing nicotine dependence. 22.FULL CODE. DISCHARGE DISPOSITION: Patient being discharged in stable condition. Guarded prognosis. Cardiology cleared the patient for discharge. HISTORY OF PRESENT ILLNESS: This 64-year-old gentleman with a past medical history of multiple medical problems being followed by Dr. Dru Colby in the outpatient setting was admitted with chest pain. Myocardial infarction ruled out. Cardiology saw the patient. Cardiology recommended cardiac catheterization but the patient was not willing at this time. Otherwise, the patient improved significantly and troponins are negative. Patient is keen on going home at this time. On exam, vitals are stable. Cardiovascular S1, S2. Abdomen soft. Nervous system: No focal deficits. DISCHARGE ADVICE AND MEDICATIONS: 1. Diet is cardiac diet. 2. Activity limited until followup. 3. No smoking. 4. Follow up with Dr. Colby in 2 to 3 days. 5. Follow up with Cardiology as recommended. DISCHARGE MEDICATIONS: 1. Atenolol 25 mg p.o. daily. 2. Levemir 45 units subcu q.a.m. 3. NovoLog FlexPen 20 units. 4. Protonix 40 mg p.o. daily. 5. Tylenol 1000 mg q.6 p.r.n. 6. Xanax 0.5 b.i.d. 7. Zestril 20 mg b.i.d. 8. Zocor 40 mg q.h.s. 9. Aspirin 81 mg p.o. daily. 10.Habitrol 21 daily. 11.Reglan 5 mg q.8 p.r.n. Once again, the patient discharged in stable condition with guarded prognosis. MMODL / IJN: [id number] /
[2019-11-29] MEDS ORDERED: ASPIRIN 81 MG PO SCH (09:00)
--- NOTE | 2019-11-30 08:45 | ECHOF ---
Referral Reason:cp MEASUREMENTS -------- HEIGHT: 172.7 cm WEIGHT: 91.6 kg BP: 175/85 RVIDd: 3.6 cm (< 3.3) IVSd: 1.4 cm (0.6 - 1.1) LVIDd: 3.8 cm (3.9 - 5.3) LVPWd: 1.3 cm (0.6 - 1.1) IVSs: 1.9 cm LVIDs: 2.5 cm LVPWs: 2.1 cm LAESV Index (A-L): 23.42 ml/m Ao Diam: 3.0 cm (2.0 - 3.7) AV Cusp: 1.9 cm (1.5 - 2.6) MV EXCURSION: 11.800 mm (> 18.000) MV EF SLOPE: 58 mm/s (70 - 150) EPSS: 0.5 cm MV E Collins: 0.79 m/s MV DecT: 201 ms MV A Collins: 0.81 m/s MV E/A Ratio: 0.97 RAP: 5.00 mmHg RVSP: 12.89 mmHg FINDINGS -------- Sinus rhythm. This was a technically adequate study. The left ventricular size is normal. There is mild concentric left ventricular hypertrophy. Overa ll left ventricular systolic function is normal with, an EF between 55 - 60 %. The diastolic fillin g pattern is normal for the age of the patient 14.79. The right ventricle is normal in size. Normal LA size by volume 22+/-6 ml/m2. The right atrial size is normal. Interatrial and interventricular septum intact. There is mild aortic valve sclerosis. The mitral valve leaflets are mildly thickened. Mild mitral regurgitation is present. Mild tricuspid regurgitation present. There is no evidence of pulmonary hypertension. The right v entricular systolic pressure, as measured by Doppler, is 12.89mmHg. There is no pulmonic regurgitation present. The aortic root size is normal. Normal inferior vena cava with normal inspiratory collapse consistent with estimated right atrial pre ssure of 5 mmHg. There is no pericardial effusion. CONCLUSIONS -------- 1. There is mild concentric left ventricular hypertrophy. 2. Overall left ventricular systolic function is normal with, an EF between 55 - 60 %. 3. The diastolic filling pattern is normal for the age of the patient 14.79 4. Normal LA size by volume 22+/-6 ml/m2. 5. There is mild aortic valve sclerosis. 6. Mild mitral regurgitation is present. 7. Mild tricuspid regurgitation present. 8. There is no evidence of pulmonary hypertension. ENT SURGEON: Gladys Toribio RDCS
== END 2019-11-28 12:55 | disposition home or self-care (01) ==
LOC: EC 10:49 → 3SCARD 13:26
PROVIDERS: ADMIT Hospitalist; ATTEND Hospitalist
DX: R07.89 Other chest pain (principal); Z03.818 Encounter for observation for suspected exposure to other biological agents ruled out; R61 Generalized hyperhidrosis; R11.2 Nausea with vomiting, unspecified; R06.02 Shortness of breath; R63.0 Anorexia; R68.83 Chills (without fever); R05 Cough; F17.210 Nicotine dependence, cigarettes, uncomplicated; R79.81 Abnormal blood-gas level; D72.829 Elevated white blood cell count, unspecified; I10 Essential (primary) hypertension; E78.00 Pure hypercholesterolemia, unspecified; E11.9 Type 2 diabetes mellitus without complications; H91.90 Unspecified hearing loss, unspecified ear; E78.5 Hyperlipidemia, unspecified; K58.9 Irritable bowel syndrome, unspecified; K44.9 Diaphragmatic hernia without obstruction or gangrene; M19.90 Unspecified osteoarthritis, unspecified site; F41.9 Anxiety disorder, unspecified; F32.9 Major depressive disorder, single episode, unspecified; F12.90 Cannabis use, unspecified, uncomplicated; E80.7 Disorder of bilirubin metabolism, unspecified; Z79.899 Other long term (current) drug therapy; Z79.4 Long term (current) use of insulin; Z79.82 Long term (current) use of aspirin; Z88.6 Allergy status to analgesic agent; Z88.5 Allergy status to narcotic agent; Z88.8 Allergy status to other drugs, medicaments and biological substances; Z91.048 Other nonmedicinal substance allergy status; Z87.442 Personal history of urinary calculi; Z98.2 Presence of cerebrospinal fluid drainage device; Z86.73 Personal history of transient ischemic attack (TIA), and cerebral infarction without residual deficits; Z87.19 Personal history of other diseases of the digestive system; Z98.1 Arthrodesis status; Z89.212 Acquired absence of left upper limb below elbow; Z80.0 Family history of malignant neoplasm of digestive organs; Z80.51 Family history of malignant neoplasm of kidney
CPT/HCPCS: 96376 ×2; 96366 ×2; 96375; 93005 ×2; 96365; 99291; 36415; 93306; 80061; 80053; 80048; 82009; 83735; 84484; 85025 ×2; 85610; 85730 ×2; 81001; 80306; 87635; 71046; G0378 ×2; S4990; J1644 ×2; C9113 ×2

== ENCOUNTER 2019-12-07 04:34 | Emergency (ER) | payer BC, MEDICARE ==
[2019-12-07] MEDS ORDERED: MORPHINE SULFATE 4 MG/ML SYRINGE IV STA (05:11)
[2019-12-07] MEDS ORDERED: SODIUM CHLORIDE 0.9% 1,000 ML IV STA ×2 (05:11)
--- NOTE | 2019-12-07 05:13 | ED ---
Abdominal Pain HPI - General Chief Complaint: Abdominal Pain Stated Complaint: Stomach Pain Time Seen by Provider: 12/07/19 04:39 Source: patient, RN notes reviewed, old records reviewed Mode of arrival: ambulatory Limitations: no limitations - History of Present Illness MD Complaint: abdominal pain -: week(s) Location: RUQ, RLQ, R flank Radiation: RLQ Migration to: suprapubic Severity: moderate Quality: cramping, stabbing Consistency: intermittent Improves With: nothing Worsens With: nothing Context: recent surgery/procedure Associated Symptoms: nausea - Related Data Home Medications Medication Instructions Recorded Confirmed Lisinopril [Zestril] 20 mg PO BID 11/24/15 11/27/19 Simvastatin [Zocor] 40 mg PO AC-SUPPER 11/24/15 11/27/19 Insulin Aspart [NovoLOG Flexpen] 10 units SQ AC-LUNCH 12/15/18 11/27/19 Insulin Aspart [NovoLOG Flexpen] 20 units SQ AC-BID@0900,1800 12/15/18 11/27/19 Insulin Detemir (Levemir) [Levemir] 45 unit SQ QAM@0500 12/15/18 11/27/19 Pantoprazole [Protonix] 40 mg PO DAILY 05/09/19 11/27/19 ALPRAZolam [Xanax] 0.5 mg PO BID PRN 11/27/19 11/27/19 Acetaminophen Tab [Tylenol] 1,000 mg PO Q6H PRN 11/27/19 11/27/19 Atenolol 25 mg PO DAILY 11/27/19 11/27/19 Previous Rx's Medication Instructions Recorded Aspirin 81 mg PO DAILY chew 05/12/19 Metoclopramide HCl [Reglan] 5 mg PO Q8H PRN #12 tablet 11/26/19 Nicotine 21Mg/24Hr Patch [Habitrol] 1 patch TRANSDERM DAILY #30 patch 11/28/19 Allergies Allergy/AdvReac Type Severity Reaction Status Date / Time blue dye Allergy Severe Rash/Hives Verified 12/07/19 04:42 codeine Allergy Itching Verified 12/07/19 04:42 naproxen sodium [From Aleve] Allergy Rash/Hives Verified 12/07/19 04:42 ondansetron [From Zofran] Allergy Rash/Hives Verified 12/07/19 04:42 naloxegol [From Movantik] AdvReac Nausea & Verified 12/07/19 04:42 Vomiting Review of Systems ROS Statement: Those systems with pertinent positive or pertinent negative responses have been documented in the HPI. ROS Other: All systems not noted in ROS Statement are negative. Past Medical History Past Medical History: Chest Pain / Angina, CVA/TIA, Diabetes Mellitus, Hearing Disorder / Deafness, Hyperlipidemia, Hypertension Additional Past Medical History / Comment(s): TIA, no residual effects, HX KIDNEY STONE. IBS, HX DIVERTICULITIS. HIATAL HERNIA, perontonial shunt, arthritis History of Any Multi-Drug Resistant Organisms: None Reported Past Surgical History: Back Surgery, Bowel Resection, Orthopedic Surgery Additional Past Surgical History / Comment(s): LEFT KNEE ARTHROSCOPIC. SHUNT [id number] R/T PRESSURE IN SKULL. 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 2020 right elbow surgery on tendens Past Anesthesia/Blood Transfusion Reactions: No Reported Reaction Past Psychological History: Anxiety, Depression Smoking Status: Current every day smoker Past Alcohol Use History: None Reported Past Drug Use History: Marijuana - Past Family History Mother Family Medical History: Cancer Additional Family Medical History / Comment(s): kidney Father Family Medical History: Cancer Additional Family Medical History / Comment(s): pancreatic General Exam Limitations: no limitations General appearance: alert, in no apparent distress Head exam: Present: atraumatic, normocephalic, normal inspection Eye exam: Present: normal appearance, PERRL, EOMI. Absent: scleral icterus, conjunctival injection, periorbital swelling ENT exam: Present: normal exam, mucous membranes moist Neck exam: Present: normal inspection. Absent: tenderness, meningismus, lymphadenopathy Respiratory exam: Present: normal lung sounds bilaterally. Absent: respiratory distress, wheezes, rales, rhonchi, stridor Cardiovascular Exam: Present: regular rate, normal rhythm, normal heart sounds. Absent: systolic murmur, diastolic murmur, rubs, gallop, clicks GI/Abdominal exam: Present: soft, distended, tenderness, guarding, normal bowel sounds. Absent: rebound, rigid Extremities exam: Present: normal inspection, full ROM, normal capillary refill. Absent: tenderness, pedal edema, joint swelling, calf tenderness Back exam: Present: normal inspection Neurological exam: Present: alert, oriented X3, CN II-XII intact Psychiatric exam: Present: normal affect, normal mood Skin exam: Present: warm, dry, intact, normal color. Absent: rash Course Vital Signs 12/07/19 12/07/19 04:38 05:37 Temperature 98.1 F 98.4 F Pulse Rate 74 72 Respiratory 18 16 Rate Blood Pressure 202/90 193/105 O2 Sat by Pulse 97 95 Oximetry - Reevaluation(s) Reevaluation #1: 12/07/19 05:13 Medical record is reviewed Medical Decision Making - Lab Data Result diagrams: 12/07/19 05:25 12/07/19 05:25 Lab Results 12/07/19 12/07/19 Range/Units 05:25 05:25 WBC 11.0 H (3.8-10.6) k/uL RBC 5.54 (4.30-5.90) m/uL Hgb 16.8 (13.0-17.5) gm/dL Hct 53.2 H (39.0-53.0) % MCV 96.1 (80.0-100.0) fL MCH 30.3 (25.0-35.0) pg MCHC 31.5 (31.0-37.0) g/dL RDW 13.2 (11.5-15.5) % Plt Count 267 (150-450) k/uL Neutrophils % 74 % Lymphocytes % 14 % Monocytes % 6 % Eosinophils % 3 % Basophils % 1 % Neutrophils # 8.2 H (1.3-7.7) k/uL Lymphocytes # 1.6 (1.0-4.8) k/uL Monocytes # 0.7 (0-1.0) k/uL Eosinophils # 0.3 (0-0.7) k/uL Basophils # 0.1 (0-0.2) k/uL Sodium 135 L (137-145) mmol/L Potassium 4.8 (3.5-5.1) mmol/L Chloride 106 (98-107) mmol/L Carbon Dioxide 23 (22-30) mmol/L Anion Gap 6 mmol/L BUN 18 (9-20) mg/dL Creatinine 1.10 (0.66-1.25) mg/dL Est GFR (CKD-EPI)AfAm 81 (>60 ml/min/1.73 sqM) Est GFR (CKD-EPI)NonAf 70 (>60 ml/min/1.73 sqM) Glucose 184 H (74-99) mg/dL Calcium 9.2 (8.4-10.2) mg/dL Total Bilirubin 1.2 (0.2-1.3) mg/dL AST 21 (17-59) U/L ALT 18 (4-49) U/L Alkaline Phosphatase 99 (38-126) U/L Total Protein 7.1 (6.3-8.2) g/dL Albumin 4.3 (3.5-5.0) g/dL Amylase 59 (30-110) U/L Lipase 75 (23-300) U/L Disposition Clinical Impression: Abdominal pain Disposition: HOME SELF-CARE Instructions (If sedation given, give patient instructions): Abdominal Pain (ED) Is patient prescribed a controlled substance at d/c from ED?: No Referrals: Dru Colby MD [Primary Care Provider] - 1-2 days
[2019-12-07 05:39] VITALS: RESP 16; TEMP 98.4
[2019-12-07 05:40] LABS: Basophils # (A) 0.1 k/uL (0-0.2); Basophils % (A) 1 %; Eosinophils # (A) 0.3 k/uL (0-0.7); Eosinophils % (A) 3 %; HCT 53.2 % (39.0-53.0); HGB 16.8 gm/dL (13.0-17.5); Lymphocytes # (A) 1.6 k/uL (1.0-4.8); Lymphocytes % (A) 14 %; MCH 30.3 pg (25.0-35.0); MCHC 31.5 g/dL (31.0-37.0); MCV 96.1 fL (80.0-100.0); Monocytes # (A) 0.7 k/uL (0-1.0); Monocytes % (A) 6 %; Neutrophils # (A) 8.2 k/uL (1.3-7.7); Neutrophils % (A) 74 %; Platelet Count 267 k/uL (150-450); RBC 5.54 m/uL (4.30-5.90); RDW 13.2 % (11.5-15.5)
[2019-12-07 06:05] LABS: Albumin 4.3 g/dL (3.5-5.0); Calcium 9.2 mg/dL (8.4-10.2); Potassium 4.8 mmol/L (3.5-5.1); Total Bilirubin 1.2 mg/dL (0.2-1.3); Total Protein 7.1 g/dL (6.3-8.2)
--- NOTE | 2019-12-07 06:51 | CT ---
EXAMINATION TYPE: CT abdomen pelvis w con DATE OF EXAM: 12/07/2019 COMPARISON: 03/18/2019 HISTORY: Abdominal pain CT DLP: 1317.4 mGycm Automated exposure control for dose reduction was used. CONTRAST: Performed with IV Contrast, patient injected with 100 ml mL of Isovue 300. There is some mild atelectasis left lung base. There is no pleural effusion. Heart size is normal. Th ere is no pericardial effusion. Stomach is intact. There is apparent ventriculoperitoneal shunt catheter in the right upper quadrant. Liver shows no focal defect. Gallbladder appears normal. Bile ducts are not dilated. There is no oliveira creatic mass. Spleen is intact. There is no adrenal mass. Kidneys show satisfactory contrast opacification. There is no hydronephrosi s. There are a few renal cortical cysts and the largest measures 5 cm on the lateral right kidney. Ur eters are not dilated. There is no retroperitoneal adenopathy. There is apparent surgery at the sigmo id colon. Bladder distends smoothly. There is no inguinal hernia. There is no free fluid in the pelvi s. The appendix appears normal. There is no mesenteric edema. There is no ascites or free air. There is subcutaneous increased density over the left mid abdomen that could be injection site. There is no evidence of bowel obstruction. Lumbar vertebra have normal spacing and alignment. Bony pelvis is intact. Hip joints are intact. I se e no bony destructive process. IMPRESSION: Mild subsegmental atelectasis left lung base. Normal appendix. No sign of acute abdomen and pelvis.
[2019-12-07 07:06] VITALS: BP 162/100; PULSE 74
== END 2019-12-07 07:06 | disposition home or self-care (01) ==
LOC: EC 04:34
DX: R10.11 Right upper quadrant pain (principal); R10.31 Right lower quadrant pain; R11.0 Nausea; E11.9 Type 2 diabetes mellitus without complications; E78.5 Hyperlipidemia, unspecified; I10 Essential (primary) hypertension; F17.200 Nicotine dependence, unspecified, uncomplicated; Z86.73 Personal history of transient ischemic attack (TIA), and cerebral infarction without residual deficits; Z87.442 Personal history of urinary calculi; Z87.19 Personal history of other diseases of the digestive system; Z98.890 Other specified postprocedural states; Z79.4 Long term (current) use of insulin; Z79.899 Other long term (current) drug therapy; Z91.048 Other nonmedicinal substance allergy status; Z88.5 Allergy status to narcotic agent; Z88.6 Allergy status to analgesic agent; Z88.8 Allergy status to other drugs, medicaments and biological substances
CPT/HCPCS: 36415; 80053; 82150; 83690; 85025; 74177; 99284; 96374; 96361 ×2; J2270; Q9967

== ENCOUNTER 2019-12-20 02:08 | Emergency (ER) | payer BC, MEDICARE ==
[2019-12-20 02:17] VITALS: RESP 18; TEMP 97.8
[2019-12-20] MEDS ORDERED: MORPHINE SULFATE 4 MG/ML SYRINGE IV STA (02:58)
--- NOTE | 2019-12-20 03:15 | ED ---
Abdominal Pain HPI - General Chief Complaint: Abdominal Pain Stated Complaint: abd pain Time Seen by Provider: 12/20/19 02:51 Source: patient Mode of arrival: ambulatory Limitations: no limitations - History of Present Illness MD Complaint: abdominal pain Onset/Timin -: week(s) Location: LLQ, RLQ Migration to: no migration Severity: severe Quality: burning Consistency: intermittent Improves With: nothing Worsens With: nothing Associated Symptoms: nausea, vomiting, constipation - Related Data Home Medications Medication Instructions Recorded Confirmed Lisinopril [Zestril] 20 mg PO BID 11/24/15 11/27/19 Simvastatin [Zocor] 40 mg PO AC-SUPPER 11/24/15 11/27/19 Insulin Aspart [NovoLOG Flexpen] 10 units SQ AC-LUNCH 12/15/18 11/27/19 Insulin Aspart [NovoLOG Flexpen] 20 units SQ AC-BID@0900,1800 12/15/18 11/27/19 Insulin Detemir (Levemir) [Levemir] 45 unit SQ QAM@0500 12/15/18 11/27/19 Pantoprazole [Protonix] 40 mg PO DAILY 05/09/19 11/27/19 ALPRAZolam [Xanax] 0.5 mg PO BID PRN 11/27/19 11/27/19 Acetaminophen Tab [Tylenol] 1,000 mg PO Q6H PRN 11/27/19 11/27/19 Atenolol 25 mg PO DAILY 11/27/19 11/27/19 Previous Rx's Medication Instructions Recorded Aspirin 81 mg PO DAILY chew 05/12/19 Metoclopramide HCl [Reglan] 5 mg PO Q8H PRN #12 tablet 11/26/19 Nicotine 21Mg/24Hr Patch [Habitrol] 1 patch TRANSDERM DAILY #30 patch 11/28/19 Allergies Allergy/AdvReac Type Severity Reaction Status Date / Time blue dye Allergy Severe Rash/Hives Verified 12/07/19 04:42 codeine Allergy Itching Verified 12/07/19 04:42 naproxen sodium [From Aleve] Allergy Rash/Hives Verified 12/07/19 04:42 ondansetron [From Zofran] Allergy Rash/Hives Verified 12/07/19 04:42 naloxegol [From Movantik] AdvReac Nausea & Verified 12/07/19 04:42 Vomiting Review of Systems ROS Statement: Those systems with pertinent positive or pertinent negative responses have been documented in the HPI. ROS Other: All systems not noted in ROS Statement are negative. Constitutional: Denies: fever, chills Respiratory: Denies: cough, dyspnea Cardiovascular: Denies: chest pain, palpitations, orthopnea Gastrointestinal: Reports: as per HPI, abdominal pain, constipation. Denies: nausea, vomiting, diarrhea, melena, hematochezia Genitourinary: Denies: dysuria, frequency, hematuria Musculoskeletal: Denies: back pain Skin: Denies: rash Neurological: Denies: headache, weakness, numbness Past Medical History Past Medical History: Chest Pain / Angina, CVA/TIA, Diabetes Mellitus, Hearing Disorder / Deafness, Hyperlipidemia, Hypertension Additional Past Medical History / Comment(s): TIA, no residual effects, HX KIDNEY STONE. IBS, HX DIVERTICULITIS. HIATAL HERNIA, perontonial shunt, arthritis History of Any Multi-Drug Resistant Organisms: None Reported Past Surgical History: Back Surgery, Bowel Resection, Orthopedic Surgery Additional Past Surgical History / Comment(s): LEFT KNEE ARTHROSCOPIC. SHUNT [id number] R/T PRESSURE IN SKULL. 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 2020 right elbow surgery on tendens Past Anesthesia/Blood Transfusion Reactions: No Reported Reaction Past Psychological History: Anxiety, Depression Smoking Status: Current every day smoker Past Alcohol Use History: None Reported Past Drug Use History: Marijuana - Past Family History Mother Family Medical History: Cancer Additional Family Medical History / Comment(s): kidney Father Family Medical History: Cancer Additional Family Medical History / Comment(s): pancreatic General Exam Limitations: no limitations General appearance: alert, in no apparent distress Head exam: Present: atraumatic, normocephalic Eye exam: Present: normal appearance. Absent: scleral icterus, conjunctival injection Respiratory exam: Present: normal lung sounds bilaterally. Absent: respiratory distress, wheezes, rales, rhonchi, stridor Cardiovascular Exam: Present: regular rate, normal rhythm, normal heart sounds. Absent: systolic murmur, diastolic murmur, rubs, gallop GI/Abdominal exam: Present: soft, tenderness (Lower abdominal tenderness without rebound or guarding), normal bowel sounds. Absent: distended, guarding, rebound, rigid, mass Extremities exam: Present: normal inspection, normal capillary refill. Absent: pedal edema, calf tenderness Back exam: Present: normal inspection. Absent: CVA tenderness (R), CVA tenderness (L) Skin exam: Present: warm, dry, intact, normal color. Absent: rash Course Vital Signs 12/20/19 02:11 Temperature 97.8 F Pulse Rate 79 Respiratory 18 Rate Blood Pressure 174/95 O2 Sat by Pulse 98 Oximetry Medical Decision Making - Lab Data Result diagrams: 12/20/19 02:43 12/20/19 02:43 Lab Results 12/20/19 12/20/19 12/20/19 Range/Units 02:43 02:43 02:43 WBC 10.9 H (3.8-10.6) k/uL RBC 5.15 (4.30-5.90) m/uL Hgb 16.7 (13.0-17.5) gm/dL Hct 51.1 (39.0-53.0) % MCV 99.2 (80.0-100.0) fL MCH 32.4 (25.0-35.0) pg MCHC 32.7 (31.0-37.0) g/dL RDW 13.1 (11.5-15.5) % Plt Count 235 (150-450) k/uL Neutrophils % 66 % Lymphocytes % 21 % Monocytes % 7 % Eosinophils % 4 % Basophils % 1 % Neutrophils # 7.2 (1.3-7.7) k/uL Lymphocytes # 2.2 (1.0-4.8) k/uL Monocytes # 0.7 (0-1.0) k/uL Eosinophils # 0.4 (0-0.7) k/uL Basophils # 0.1 (0-0.2) k/uL Sodium 137 (137-145) mmol/L Potassium 4.7 (3.5-5.1) mmol/L Chloride 107 (98-107) mmol/L Carbon Dioxide 23 (22-30) mmol/L Anion Gap 7 mmol/L BUN 23 H (9-20) mg/dL Creatinine 1.03 (0.66-1.25) mg/dL Est GFR (CKD-EPI)AfAm 88 (>60 ml/min/1.73 sqM) Est GFR (CKD-EPI)NonAf 76 (>60 ml/min/1.73 sqM) Glucose 200 H (74-99) mg/dL Calcium 9.2 (8.4-10.2) mg/dL Total Bilirubin 0.7 (0.2-1.3) mg/dL AST 18 (17-59) U/L ALT 16 (4-49) U/L Alkaline Phosphatase 97 (38-126) U/L Total Protein 6.5 (6.3-8.2) g/dL Albumin 4.0 (3.5-5.0) g/dL Amylase 70 (30-110) U/L Lipase 209 (23-300) U/L Urine Color Light Yellow Urine Appearance Clear (Clear) Urine pH 6.0 (5.0-8.0) Ur Specific [place] 1.016 (1.001-1.035) Urine Protein 1+ H (Negative) Urine Glucose (UA) 3+ H (Negative) Urine Ketones Negative (Negative) Urine Blood Negative (Negative) Urine Nitrite Negative (Negative) Urine Bilirubin Negative (Negative) Urine Urobilinogen <2.0 (<2.0) mg/dL Ur Leukocyte Esterase Negative (Negative) Urine RBC 1 (0-5) /hpf Urine WBC <1 (0-5) /hpf Urine Mucus Rare H (None) /hpf Disposition Clinical Impression: Abdominal pain Disposition: HOME SELF-CARE Condition: Good Instructions (If sedation given, give patient instructions): Abdominal Pain (ED) Is patient prescribed a controlled substance at d/c from ED?: No Referrals: Dru Colby MD [Primary Care Provider] - 1-2 days
[2019-12-20 03:21] LABS: Appearance,Urine Clear (Clear); Basophils # (A) 0.1 k/uL (0-0.2); Basophils % (A) 1 %; Bilirubin,Urine Negative (Negative); Blood,Urine Negative (Negative); Color,Urine Light Yellow; Eosinophils # (A) 0.4 k/uL (0-0.7); Eosinophils % (A) 4 %; Glucose,Urine (UA) 3+ (Negative); HCT 51.1 % (39.0-53.0); HGB 16.7 gm/dL (13.0-17.5); Ketones,Urine Negative (Negative); Leukocyte Esterase,Urine Negative (Negative); Lymphocytes # (A) 2.2 k/uL (1.0-4.8); Lymphocytes % (A) 21 %; MCH 32.4 pg (25.0-35.0); MCHC 32.7 g/dL (31.0-37.0); MCV 99.2 fL (80.0-100.0); Mean Platelet Volume 7.5; Monocytes # (A) 0.7 k/uL (0-1.0); Monocytes % (A) 7 %; Mucus,Urine Rare /hpf; Neutrophils # (A) 7.2 k/uL (1.3-7.7); Neutrophils % (A) 66 %; Nitrite,Urine Negative (Negative); Platelet Count 235 k/uL (150-450); Protein,Urine 1+ (Negative); RBC 5.15 m/uL (4.30-5.90); RBC,Urine 1 /hpf (0-5); RDW 13.1 % (11.5-15.5); Specific Gravity,Urine 1.016 (1.001-1.035); Urobilinogen,Urine <2.0 mg/dL (<2.0); WBC 10.9 k/uL (3.8-10.6); WBC,Urine <1 /hpf (0-5)
[2019-12-20 03:31] LABS: Calcium 9.2 mg/dL (8.4-10.2); Potassium 4.7 mmol/L (3.5-5.1); Total Bilirubin 0.7 mg/dL (0.2-1.3); Total Protein 6.5 g/dL (6.3-8.2)
--- NOTE | 2019-12-20 04:00 | CT ---
EXAMINATION TYPE: CT abdomen pelvis wo con DATE OF EXAM: 12/20/2019 COMPARISON: 12/07/2019 HISTORY: Abdominal pain CT DLP: 788.2 mGycm Automated exposure control for dose reduction was used. Lung bases are clear of consolidation. There is no pleural effusion. Heart size is normal. There is n o pericardial effusion. Liver and spleen appear intact. Bile ducts are not dilated. Stomach has normal size and contour. Ther e is mild wall thickening of the stomach. There is no evidence of pancreatic mass. Gallbladder appear s normal. There is apparent ventriculoperitoneal shunt catheter in the right side of the abdomen. There is no adrenal mass. Kidneys have normal size. There is no hydronephrosis. There is right renal cortical cysts that measures 5 cm. There are smaller renal cortical cysts. There is no retroperitonea l adenopathy. Ureters are not dilated. Appendix is posterior and medial and appears normal. Bladder d istends smoothly. There is no free fluid in the pelvis. There is surgical clips at the rectosigmoid j unction. There are some sigmoid diverticula. There is no sign of diverticulitis. There is no mesenteric edema. There is no ascites or free air. There is no bowel obstruction. There i s subcutaneous density over the left anterior abdomen that could be injection site. Lumbar vertebra have normal alignment. Disc spaces are fairly normal. The bony pelvis is intact. Ther e is no compression fracture. IMPRESSION: Previous sigmoid colon surgery and resection. Mild colonic diverticulosis without diverticulitis. There is mildly thickened gastric wall that could relate to hypertrophic gastritis. Unchanged. I do not see a cause for lower abdominal pain.
[2019-12-20] MEDS ORDERED: PEG 3350-NA SULF,BICARB,CL/KCL 4,000 ML BOTTLE PO ONE (04:44)
[2019-12-20 05:15] VITALS: BP 154/111; PULSE 72
== END 2019-12-20 05:24 | disposition home or self-care (01) ==
LOC: EC 02:08
DX: R10.31 Right lower quadrant pain (principal); R10.32 Left lower quadrant pain; I25.2 Old myocardial infarction; E11.9 Type 2 diabetes mellitus without complications; E78.5 Hyperlipidemia, unspecified; I10 Essential (primary) hypertension; K58.9 Irritable bowel syndrome, unspecified; F17.200 Nicotine dependence, unspecified, uncomplicated; Z79.4 Long term (current) use of insulin; Z79.899 Other long term (current) drug therapy; Z88.5 Allergy status to narcotic agent; Z88.6 Allergy status to analgesic agent; Z88.8 Allergy status to other drugs, medicaments and biological substances; Z91.048 Other nonmedicinal substance allergy status; Z86.73 Personal history of transient ischemic attack (TIA), and cerebral infarction without residual deficits; Z87.19 Personal history of other diseases of the digestive system; Z90.49 Acquired absence of other specified parts of digestive tract; Z98.890 Other specified postprocedural states
CPT/HCPCS: 36415; 80053; 82150; 83690; 85025; 81001; 74176; 99284; 96374; J2270

== ENCOUNTER → 2019-12-23 | Outpatient (CLI) | payer BC, MEDICARE ==
--- NOTE | 2019-12-23 09:52 | US ---
EXAMINATION TYPE: US abdomen complete DATE OF EXAM: 12/23/2019 COMPARISON: CT from 3 days ago and December 07, 2019 CLINICAL HISTORY: Abdominal pain R10.9. Intermittent abdomen pain and nausea x 1 month EXAM MEASUREMENTS: Liver Length: 15.4 cm Gallbladder Wall: 0.2 cm CBD: 0.6 cm Spleen: 10.0 cm Right Kidney: 9.6 x 5.7 x 4.1 cm Left Kidney: 10.1 x 5.3 x 4.8 cm Pancreas: obscured by overlying midline bowel gas Liver: mildly heterogeneous Gallbladder: wnl Evidence for sonographic Schaffer's sign: no CBD: visualized portions wnl, limited by overlying bowel gas Spleen: visualized portions wnl, limited by overlying bowel gas Right Kidney: multiple cysts with largest in superior pole measuring 5.2 x 4.8 x 4.4cm Left Kidney: multiple small cysts Upper IVC: wnl Abd Aorta: proximal portion obscured by overlying midline bowel gas, visualized portions of mid and distal appear wnl No aneurysmal change of visualized mid to distal abdominal aorta. Suboptimal evaluation of pancreas d ue to overlying bowel gas. Visualized liver is slightly heterogeneous without suspicious mass or duct al dilatation. Gallbladder seen without shadowing mobile gallstones. Common bile duct upper limits of normal. Simple appearing thin-walled cysts redemonstrated in the right kidney. Smaller simple-appear ing thin-walled cysts in the left kidney. No hydronephrosis bilaterally. Spleen normal in size. IMPRESSION: No suspicious new or acute findings identified.
== END | disposition home or self-care (01) ==
LOC: RADUSWWP 08:40
PROVIDERS: ATTEND Family Medicine
DX: R10.9 Unspecified abdominal pain (principal)
CPT/HCPCS: 76700

== ENCOUNTER → 2020-01-07 | Outpatient (CLI) | payer BC, MEDICARE ==
--- NOTE | 2020-01-07 16:00 | NM ---
EXAMINATION TYPE: NM hepatobiliary w EF DATE OF EXAM: 01/07/2020 COMPARISON: NONE INDICATION: Abdomen pain TECHNIQUE: After the intravenous administration of 4.1 mCi Tc 99m Mebrofenin hepatobiliary scintigrap hy is performed. Images were obtained immediately post injection. FINDINGS: There is prompt uptake and excretion of radiotracer by the liver. Extrahepatic ducts are identified at 16 minutes. The gallbladder is visualized within 60 minutes. Small bowel activity is noted within 32 minutes. At one hour 8 ounces of oral ensure plus is given to mimic CCK and gallbladder ejection fraction is c alculated at 83 %, which is in the elevated range.. (Normal >35% and <80%.). IMPRESSION: 1. Clinical correlation recommended for hyperkinesia of the gallbladder
== END | disposition home or self-care (01) ==
LOC: RADNMMAIN 12:39
PROVIDERS: ATTEND Family Medicine
DX: R10.9 Unspecified abdominal pain (principal)
CPT/HCPCS: 78226; A9537

== ENCOUNTER → 2020-02-03 | Outpatient (CLI) | payer BC, MEDICARE ==
--- NOTE | 2020-02-03 09:48 | US ---
EXAMINATION TYPE: US kidneys/renal and bladder DATE OF EXAM: 02/03/2020 COMPARISON: Ultrasound abdomen 12/23/2019 CLINICAL HISTORY: 64-year-old male N28.1 cyst of kidney, acquired. Hx renal cysts. Diabetic. TECHNIQUE: Multiple sonographic images of the kidneys and bladder are obtained. FINDINGS: EXAM MEASUREMENTS: Right Kidney: 10.7 x 5.2 x 4.7 cm Left Kidney: 10.4 x 4.1 x 5.0 cm No hydronephrosis on either side. Right Kidney: Multiple cysts visualized. Largest seen superior = 5.7 x 4.6 x 5.0 cm Left Kidney: A few cysts visualized. Largest seen inferior - 0.9 x 0.8 x 0.7 cm Bladder: Anechoic, partially distended Bilateral Jets not seen IMPRESSION: 1. No hydronephrosis. 2. Bilateral renal cysts measuring up to 5.7 cm on the right.
== END | disposition home or self-care (01) ==
LOC: RADUSWWP 07:23
PROVIDERS: ATTEND Family Medicine
DX: N28.1 Cyst of kidney, acquired (principal)
CPT/HCPCS: 76770

== ENCOUNTER 2020-02-14 03:38 | Emergency (ER) | payer BC, MEDICARE ==
[2020-02-14 03:43] VITALS: TEMP 98
[2020-02-14] MEDS ORDERED: SODIUM CHLORIDE 0.9% 1,000 ML IV STA ×2 (03:45)
[2020-02-14] MEDS ORDERED: MORPHINE SULFATE 4 MG/ML SYRINGE IV STA (03:45)
--- NOTE | 2020-02-14 03:45 | ED ---
Abdominal Pain HPI - General Chief Complaint: Abdominal Pain Stated Complaint: Abd Pain Time Seen by Provider: 02/14/20 03:42 Source: patient Mode of arrival: ambulatory Limitations: no limitations - History of Present Illness Initial Comments: This is a 64-year-old male DF for evaluation of abdominal pain right lower quadrant abdominal pain persistent abdominal pain here in the ER. Patient has multiple episodes, similar episodes of same. Patient has had bowel surgery in the past no current or recent surgeries no fevers no nausea vomiting no chest pain. Patient states pain is persistent but he denies any fevers again, severe right lower quadrant pain that his been symptomatic for his stomach and believes like his stomach is trying to tear out of his body MD Complaint: abdominal pain -: days(s) Location: diffuse, RLQ Radiation: RLQ Migration to: no migration Severity: severe Severity scale (1-10): 8 Quality: cramping, aching Consistency: constant Improves With: nothing Worsens With: nothing Context: recent surgery/procedure (Multiple recent surgery but nothing recent) Associated Symptoms: nausea - Related Data Home Medications Medication Instructions Recorded Confirmed Lisinopril [Zestril] 20 mg PO BID 11/24/15 02/17/20 Simvastatin [Zocor] 40 mg PO AC-SUPPER 11/24/15 02/17/20 Insulin Aspart [NovoLOG Flexpen] 10 units SQ AC-LUNCH 12/15/18 02/17/20 Insulin Aspart [NovoLOG Flexpen] 20 units SQ AC-BID@0900,1800 12/15/18 02/17/20 Insulin Detemir (Levemir) [Levemir] 45 unit SQ DAILY 12/15/18 02/17/20 Pantoprazole [Protonix] 40 mg PO DAILY 05/09/19 02/17/20 ALPRAZolam [Xanax] 0.5 mg PO BID PRN 11/27/19 02/17/20 Aspirin EC [Ecotrin Low Dose] 81 mg PO DAILY 02/15/20 02/17/20 Sucralfate [Carafate] 1 gm PO AC-TID 02/15/20 02/17/20 Atenolol 25 mg PO DAILY 02/17/20 02/17/20 Previous Rx's Medication Instructions Recorded Acetaminophen Tab [Tylenol Tab] 650 mg PO Q4H PRN #30 tablet 02/19/20 buPROPion XL [Wellbutrin XL] 150 mg PO DAILY #30 tab.er.24h 02/20/20 traZODone HCL [Desyrel] 50 mg PO HS #30 tab 02/20/20 Allergies Allergy/AdvReac Type Severity Reaction Status Date / Time blue dye Allergy Severe Rash/Hives Verified 02/18/20 11:26 codeine Allergy Itching Verified 02/18/20 11:26 naproxen sodium [From Aleve] Allergy Rash/Hives Verified 02/18/20 11:26 ondansetron [From Zofran] Allergy Rash/Hives Verified 02/18/20 11:26 gabapentin AdvReac Abdominal Verified 02/18/20 11:26 Pain naloxegol [From Movantik] AdvReac Nausea & Verified 02/18/20 11:26 Vomiting Review of Systems ROS Statement: Those systems with pertinent positive or pertinent negative responses have been documented in the HPI. ROS Other: All systems not noted in ROS Statement are negative. Past Medical History Past Medical History: Chest Pain / Angina, CVA/TIA, Diabetes Mellitus, Hearing Disorder / Deafness, Hyperlipidemia, Hypertension Additional Past Medical History / Comment(s): TIA, no residual effects, HX KIDNEY STONE. IBS, HX DIVERTICULITIS. HIATAL HERNIA, perontonial shunt, arthritis History of Any Multi-Drug Resistant Organisms: None Reported Past Surgical History: Back Surgery, Bowel Resection, Orthopedic Surgery Additional Past Surgical History / Comment(s): LEFT KNEE ARTHROSCOPIC. SHUNT 6608-7006 R/T PRESSURE IN SKULL. 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 2020 right elbow surgery on tendens Past Anesthesia/Blood Transfusion Reactions: No Reported Reaction Past Psychological History: Anxiety, Depression Smoking Status: Current every day smoker Past Alcohol Use History: None Reported Past Drug Use History: Marijuana - Past Family History Mother Family Medical History: Cancer Additional Family Medical History / Comment(s): kidney Father Family Medical History: Cancer Additional Family Medical History / Comment(s): pancreatic General Exam Limitations: no limitations General appearance: alert, in no apparent distress Head exam: Present: atraumatic, normocephalic, normal inspection Eye exam: Present: normal appearance, PERRL, EOMI. Absent: scleral icterus, conjunctival injection, periorbital swelling ENT exam: Present: normal exam, mucous membranes moist Neck exam: Present: normal inspection. Absent: tenderness, meningismus, lymphadenopathy Respiratory exam: Present: normal lung sounds bilaterally. Absent: respiratory distress, wheezes, rales, rhonchi, stridor Cardiovascular Exam: Present: regular rate, normal rhythm, normal heart sounds. Absent: systolic murmur, diastolic murmur, rubs, gallop, clicks GI/Abdominal exam: Present: soft, normal bowel sounds. Absent: distended, tenderness, guarding, rebound, rigid Extremities exam: Present: normal inspection, full ROM, normal capillary refill. Absent: tenderness, pedal edema, joint swelling, calf tenderness Back exam: Present: normal inspection Neurological exam: Present: alert, oriented X3, CN II-XII intact Psychiatric exam: Present: normal affect, normal mood Skin exam: Present: warm, dry, intact, normal color. Absent: rash Course Vital Signs 02/14/20 02/14/20 02/14/20 03:39 05:41 06:09 Temperature 98 F 98 F Pulse Rate 91 78 77 Respiratory 18 16 16 Rate Blood Pressure 210/109 196/106 197/107 O2 Sat by Pulse 98 100 96 Oximetry - Reevaluation(s) Reevaluation #1: Medical records reviewed Patient's pain is symptoms are improved here in the ER Medical Decision Making - Medical Decision Making 64 male DF for evaluation patient Dese for evaluation of abdominal pain. Symptoms improved here in the ER and can be discharged home - Lab Data Result diagrams: 02/14/20 04:00 02/14/20 04:02 Lab Results 02/14/20 02/14/20 02/14/20 Range/Units 04:00 04:02 04:02 WBC 12.4 H (3.8-10.6) k/uL RBC 5.79 (4.30-5.90) m/uL Hgb 17.2 (13.0-17.5) gm/dL Hct 53.7 H (39.0-53.0) % MCV 92.6 D (80.0-100.0) fL MCH 29.6 (25.0-35.0) pg MCHC 32.0 (31.0-37.0) g/dL RDW 13.1 (11.5-15.5) % Plt Count 251 (150-450) k/uL Neutrophils % 69 % Lymphocytes % 18 % Monocytes % 7 % Eosinophils % 4 % Basophils % 1 % Neutrophils # 8.5 H (1.3-7.7) k/uL Lymphocytes # 2.3 (1.0-4.8) k/uL Monocytes # 0.8 (0-1.0) k/uL Eosinophils # 0.4 (0-0.7) k/uL Basophils # 0.1 (0-0.2) k/uL Sodium 135 L (137-145) mmol/L Potassium 5.0 (3.5-5.1) mmol/L Chloride 106 (98-107) mmol/L Carbon Dioxide 21 L (22-30) mmol/L Anion Gap 8 mmol/L BUN 16 (9-20) mg/dL Creatinine 0.95 (0.66-1.25) mg/dL Est GFR (CKD-EPI)AfAm >90 (>60 ml/min/1.73 sqM) Est GFR (CKD-EPI)NonAf 84 (>60 ml/min/1.73 sqM) Glucose 205 H (74-99) mg/dL Plasma Lactic Acid Jose Luis 1.0 (0.7-2.0) mmol/L Calcium 9.3 (8.4-10.2) mg/dL Total Bilirubin 1.5 H (0.2-1.3) mg/dL AST 33 (17-59) U/L ALT 19 (4-49) U/L Alkaline Phosphatase 100 (38-126) U/L Total Protein 7.4 (6.3-8.2) g/dL Albumin 4.5 (3.5-5.0) g/dL Amylase 85 (30-110) U/L Lipase 194 (23-300) U/L Urine Color Urine Appearance (Clear) Urine pH (5.0-8.0) Ur Specific [place] (1.001-1.035) Urine Protein (Negative) Urine Glucose (UA) (Negative) Urine Ketones (Negative) Urine Blood (Negative) Urine Nitrite (Negative) Urine Bilirubin (Negative) Urine Urobilinogen (<2.0) mg/dL Ur Leukocyte Esterase (Negative) Urine RBC (0-5) /hpf Urine WBC (0-5) /hpf Urine Mucus (None) /hpf 02/14/20 Range/Units 04:12 WBC (3.8-10.6) k/uL RBC (4.30-5.90) m/uL Hgb (13.0-17.5) gm/dL Hct (39.0-53.0) % MCV (80.0-100.0) fL MCH (25.0-35.0) pg MCHC (31.0-37.0) g/dL RDW (11.5-15.5) % Plt Count (150-450) k/uL Neutrophils % % Lymphocytes % % Monocytes % % Eosinophils % % Basophils % % Neutrophils # (1.3-7.7) k/uL Lymphocytes # (1.0-4.8) k/uL Monocytes # (0-1.0) k/uL Eosinophils # (0-0.7) k/uL Basophils # (0-0.2) k/uL Sodium (137-145) mmol/L Potassium (3.5-5.1) mmol/L Chloride (98-107) mmol/L Carbon Dioxide (22-30) mmol/L Anion Gap mmol/L BUN (9-20) mg/dL Creatinine (0.66-1.25) mg/dL Est GFR (CKD-EPI)AfAm (>60 ml/min/1.73 sqM) Est GFR (CKD-EPI)NonAf (>60 ml/min/1.73 sqM) Glucose (74-99) mg/dL Plasma Lactic Acid Jose Luis (0.7-2.0) mmol/L Calcium (8.4-10.2) mg/dL Total Bilirubin (0.2-1.3) mg/dL AST (17-59) U/L ALT (4-49) U/L Alkaline Phosphatase (38-126) U/L Total Protein (6.3-8.2) g/dL Albumin (3.5-5.0) g/dL Amylase (30-110) U/L Lipase (23-300) U/L Urine Color Light Yellow Urine Appearance Clear (Clear) Urine pH 6.5 (5.0-8.0) Ur Specific [place] 1.015 (1.001-1.035) Urine Protein 2+ H (Negative) Urine Glucose (UA) 3+ H (Negative) Urine Ketones Trace H (Negative) Urine Blood Trace H (Negative) Urine Nitrite Negative (Negative) Urine Bilirubin Negative (Negative) Urine Urobilinogen <2.0 (<2.0) mg/dL Ur Leukocyte Esterase Negative (Negative) Urine RBC 2 (0-5) /hpf Urine WBC 1 (0-5) /hpf Urine Mucus Rare H (None) /hpf - Radiology Data Radiology results: report reviewed (CT pelvis is negative maybe ileus), image reviewed Disposition Clinical Impression: Abdominal pain, Ileus Disposition: HOME SELF-CARE Condition: Good Instructions (If sedation given, give patient instructions): Abdominal Pain (ED), Ileus (ED) Is patient prescribed a controlled substance at d/c from ED?: No Referrals: Dru Colby MD [Primary Care Provider] - 1-2 days
[2020-02-14 04:12] LABS: Basophils # (A) 0.1 k/uL (0-0.2); Basophils % (A) 1 %; Eosinophils # (A) 0.4 k/uL (0-0.7); Eosinophils % (A) 4 %; HCT 53.7 % (39.0-53.0); HGB 17.2 gm/dL (13.0-17.5); Lymphocytes # (A) 2.3 k/uL (1.0-4.8); Lymphocytes % (A) 18 %; MCH 29.6 pg (25.0-35.0); Mean Platelet Volume 7.1; Monocytes # (A) 0.8 k/uL (0-1.0); Monocytes % (A) 7 %; Neutrophils # (A) 8.5 k/uL (1.3-7.7); Neutrophils % (A) 69 %; Platelet Count 251 k/uL (150-450); RBC 5.79 m/uL (4.30-5.90); RDW 13.1 % (11.5-15.5); WBC 12.4 k/uL (3.8-10.6)
[2020-02-14 04:21] LABS: ALT 19 U/L (4-49); AST 33 U/L (17-59); African American GFR (CKD) >90 (>60 ml/min/1.73 sqM); Albumin 4.5 g/dL (3.5-5.0); Alkaline Phosphatase 100 U/L (38-126); Amylase 85 U/L (30-110); Anion Gap 8 mmol/L; Blood Urea Nitrogen 16 mg/dL (9-20); Calcium 9.3 mg/dL (8.4-10.2); Carbon Dioxide 21 mmol/L (22-30); Chloride 106 mmol/L (98-107); Glucose 205 mg/dL (74-99); Non-African American GFR(CKD) 84 (>60 ml/min/1.73 sqM); Sodium 135 mmol/L (137-145); Total Bilirubin 1.5 mg/dL (0.2-1.3); Total Protein 7.4 g/dL (6.3-8.2)
[2020-02-14 04:21] LABS: Appearance,Urine Clear (Clear); Bilirubin,Urine Negative (Negative); Blood,Urine Trace (Negative); Color,Urine Light Yellow; Glucose,Urine (UA) 3+ (Negative); Ketones,Urine Trace (Negative); Leukocyte Esterase,Urine Negative (Negative); Mucus,Urine Rare /hpf; Nitrite,Urine Negative (Negative); PH, Urine 6.5 (5.0-8.0); Protein,Urine 2+ (Negative); RBC,Urine 2 /hpf (0-5); Specific Gravity,Urine 1.015 (1.001-1.035); Urobilinogen,Urine <2.0 mg/dL (<2.0); WBC,Urine 1 /hpf (0-5)
[2020-02-14 04:42] LABS: MCV 92.6 fL (80.0-100.0)
--- NOTE | 2020-02-14 05:02 | CT ---
EXAMINATION TYPE: CT abdomen pelvis w con DATE OF EXAM: 02/14/2020 COMPARISON: 12/20/2019 HISTORY: abd pain CT DLP: 1209.7 mGycm Automated exposure control for dose reduction was used. CONTRAST: Performed with IV Contrast, patient injected with 100 mL of Isovue 300. There is minimal subsegmental atelectasis left lung base. There is no pleural effusion. There is no p ericardial effusion. Heart size is normal. Liver spleen pancreas gallbladder appear normal. Bile ducts are not dilated. Stomach appears intact. There is no adrenal mass. Kidneys have normal size. There is no hydronephrosis. There is normal contr ast opacification of the kidneys. There is normal excretion on the delayed images. There are bilatera l renal cortical cysts. Largest measures 5 cm on the lateral right kidney. There is no hydronephrosis . There is no evidence of a renal calculus. Ureters are not dilated. There is no retroperitoneal franklin opathy. Bladder distends smoothly. There is no inguinal hernia. There is no free fluid in the pelvis. There are some mildly distended fl uid and air-filled loops of small bowel. Small bowel measures up to 2.6 cm. There is apparent ventric uloperitoneal shunt catheter. Lumbar vertebra have normal alignment. There is no compression fracture . Posterior elements are intact. The bony pelvis appears intact. Abdominal aorta is atheromatous. Rachel endix is medial and appears normal. IMPRESSION: Normal appendix. Renal cortical cysts. Fluid-filled small bowel loops could relate to some mild small bowel ileus. I do not suspect a mechan ical bowel obstruction. Small bowel distention increased compared to old exam.
[2020-02-14] MEDS ORDERED: LABETALOL 5 MG/ML VIAL MDV IVP STA (05:38)
[2020-02-14 05:42] VITALS: RESP 16
[2020-02-14 06:11] VITALS: BP 197/107; PULSE 77
== END 2020-02-14 06:10 | disposition home or self-care (01) ==
LOC: EC 03:38
DX: K56.7 Ileus, unspecified (principal); E11.9 Type 2 diabetes mellitus without complications; E78.5 Hyperlipidemia, unspecified; F41.9 Anxiety disorder, unspecified; I20.9 Angina pectoris, unspecified; H91.90 Unspecified hearing loss, unspecified ear; I10 Essential (primary) hypertension; F17.200 Nicotine dependence, unspecified, uncomplicated; Z79.82 Long term (current) use of aspirin; Z79.4 Long term (current) use of insulin; Z79.899 Other long term (current) drug therapy; Z88.5 Allergy status to narcotic agent; Z88.8 Allergy status to other drugs, medicaments and biological substances; Z91.041 Radiographic dye allergy status; Z98.1 Arthrodesis status; Z86.73 Personal history of transient ischemic attack (TIA), and cerebral infarction without residual deficits
CPT/HCPCS: 36415; 80053; 82150; 83605; 83690; 85025; 81001; 74177; 99284; 96374; 96375; 96361; J2270; Q9967

== ENCOUNTER 2020-02-15 08:25 | Emergency (ER) | payer BC, MEDICARE ==
[2020-02-15 08:31] VITALS: RESP 18
[2020-02-15] MEDS ORDERED: MORPHINE SULFATE 4 MG/ML SYRINGE IV STA (09:09)
[2020-02-15] MEDS ORDERED: SODIUM CHLORIDE 0.9% 1,000 ML IV STA ×2 (09:09)
[2020-02-15] MEDS ORDERED: PANTOPRAZOLE 40 MG/10 ML VIAL IVP STA (09:09)
[2020-02-15] MEDS ORDERED: diphenhydrAMINE 50 MG/ML 1 ML VIAL IVP STA (09:10)
[2020-02-15] MEDS ORDERED: METOCLOPRAMIDE 5 MG/ML 2 ML VIAL IVP STA (09:10)
--- NOTE | 2020-02-15 09:19 | ED ---
Abdominal Pain HPI - General Chief Complaint: Abdominal Pain Stated Complaint: back/Abd pain Time Seen by Provider: 02/15/20 08:54 Source: patient, RN notes reviewed, old records reviewed, Caregiver Mode of arrival: ambulatory Limitations: no limitations - History of Present Illness Initial Comments: Patient is a 64-year-old male who presents emergency department today for evaluation for right abdominal pain, and nausea. He was seen in the emergency department yesterday and was diagnosed with ileus. He reports he has not had a bowel movement past 2 days. Patient's surgical history includes bowel resection. Patient states that he has had no vomiting but has not been eating much. Patient states that he came to the emergency department again for reevaluation with worsening pain. Patient was also found be hypertensive. He states that he talked to his primary care doctor and recently discontinued atenolol within the past 2 weeks. He states he has no chest pain or shortness of breath. He states that he has no headache, dizziness or visual changes. - Related Data Home Medications Medication Instructions Recorded Confirmed Lisinopril [Zestril] 20 mg PO BID 11/24/15 02/15/20 Simvastatin [Zocor] 40 mg PO AC-SUPPER 11/24/15 02/15/20 Insulin Aspart [NovoLOG Flexpen] 10 units SQ AC-LUNCH 12/15/18 02/15/20 Insulin Aspart [NovoLOG Flexpen] 20 units SQ AC-BID@0900,1800 12/15/18 02/15/20 Insulin Detemir (Levemir) [Levemir] 45 unit SQ DAILY 12/15/18 02/15/20 Pantoprazole [Protonix] 40 mg PO DAILY 05/09/19 02/15/20 ALPRAZolam [Xanax] 0.5 mg PO BID PRN 11/27/19 02/15/20 Aspirin EC [Ecotrin Low Dose] 81 mg PO DAILY 02/15/20 02/15/20 Sucralfate [Carafate] 1 gm PO AC-TID 02/15/20 02/15/20 Allergies Allergy/AdvReac Type Severity Reaction Status Date / Time blue dye Allergy Severe Rash/Hives Verified 02/15/20 12:37 codeine Allergy Itching Verified 02/15/20 12:37 naproxen sodium [From Aleve] Allergy Rash/Hives Verified 02/15/20 12:37 ondansetron [From Zofran] Allergy Rash/Hives Verified 02/15/20 12:37 gabapentin AdvReac Abdominal Verified 02/15/20 12:37 Pain naloxegol [From Movantik] AdvReac Nausea & Verified 02/15/20 12:37 Vomiting Review of Systems ROS Statement: Those systems with pertinent positive or pertinent negative responses have been documented in the HPI. ROS Other: All systems not noted in ROS Statement are negative. Past Medical History Past Medical History: Chest Pain / Angina, CVA/TIA, Diabetes Mellitus, Hearing Disorder / Deafness, Hyperlipidemia, Hypertension Additional Past Medical History / Comment(s): TIA, no residual effects, HX KIDNEY STONE. IBS, HX DIVERTICULITIS. HIATAL HERNIA, perontonial shunt, arthritis History of Any Multi-Drug Resistant Organisms: None Reported Past Surgical History: Back Surgery, Bowel Resection, Orthopedic Surgery Additional Past Surgical History / Comment(s): LEFT KNEE ARTHROSCOPIC. SHUNT [id number] R/T PRESSURE IN SKULL. 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 2020 right elbow surgery on tendens Past Anesthesia/Blood Transfusion Reactions: No Reported Reaction Past Psychological History: Anxiety, Depression Smoking Status: Current every day smoker Past Alcohol Use History: None Reported Past Drug Use History: Marijuana - Past Family History Mother Family Medical History: Cancer Additional Family Medical History / Comment(s): kidney Father Family Medical History: Cancer Additional Family Medical History / Comment(s): pancreatic General Exam - General Exam Comments Initial Comments: 64-year-old male. Alert and oriented 3. Limitations: no limitations General appearance: alert, in no apparent distress Head exam: Present: atraumatic, normocephalic, normal inspection Eye exam: Present: normal appearance, PERRL, EOMI. Absent: scleral icterus, conjunctival injection, periorbital swelling ENT exam: Present: normal exam, mucous membranes moist, other (r) Neck exam: Present: normal inspection. Absent: tenderness, meningismus, lymphadenopathy Respiratory exam: Present: normal lung sounds bilaterally. Absent: respiratory distress, wheezes, rales, rhonchi, stridor Cardiovascular Exam: Present: regular rate, normal rhythm, normal heart sounds, other (Left upper above the wrist amputation. ). Absent: systolic murmur, diastolic murmur, rubs, gallop, clicks GI/Abdominal exam: Present: soft, normal bowel sounds. Absent: distended, tenderness, guarding, rebound, rigid Back exam: Present: normal inspection Neurological exam: Present: alert, oriented X3, CN II-XII intact Psychiatric exam: Present: normal affect, normal mood Skin exam: Present: warm, dry, intact, normal color. Absent: rash Course Vital Signs 02/15/20 02/15/20 02/15/20 08:26 08:51 10:08 Temperature 98.1 F Pulse Rate 98 87 84 Respiratory 18 18 18 Rate Blood Pressure 218/127 233/114 209/105 O2 Sat by Pulse 97 98 95 Oximetry 02/15/20 02/15/20 02/15/20 10:30 10:57 11:00 Temperature Pulse Rate 84 Respiratory 18 Rate Blood Pressure 190/98 209/116 209/116 O2 Sat by Pulse 97 Oximetry 02/15/20 02/15/20 02/15/20 11:18 11:30 11:50 Temperature Pulse Rate 81 Respiratory Rate Blood Pressure 193/106 201/111 176/105 O2 Sat by Pulse 99 Oximetry 02/15/20 02/15/20 12:02 12:26 Temperature Pulse Rate Respiratory Rate Blood Pressure 200/113 181/92 O2 Sat by Pulse Oximetry Medical Decision Making - Medical Decision Making 64-year-old male presents for his from today for concerns for right-sided abdominal pain some relation to his back. He reports that he has not had a bowel movement. Days but is still passing gas. See emergency for mass or diagnosed with ileus. His x-ray shows no signs of obstruction but moderate amount of stool burn on the right side of the abdomen. Patient's CBC is unchanged from last night. No vomiting and emergency department. Patient's KUB shows stool pattern on the right side. Discussed using magnesium citrate normal bowel movements. Patient is also found to be hypertensive and was given IV labetalol. He does report he recently discontinued his atenolol from his PCP. Discussed that this is important to restart. Discussed following up with primary care doctor within the week. - Lab Data Result diagrams: 02/15/20 09:32 02/15/20 09:37 Lab Results 02/15/20 02/15/20 02/15/20 Range/Units 09:32 09:37 09:37 WBC 12.3 H (3.8-10.6) k/uL RBC 5.91 H (4.30-5.90) m/uL Hgb 17.9 H (13.0-17.5) gm/dL Hct 54.9 H (39.0-53.0) % MCV 92.9 (80.0-100.0) fL MCH 30.3 (25.0-35.0) pg MCHC 32.6 (31.0-37.0) g/dL RDW 13.1 (11.5-15.5) % Plt Count 221 (150-450) k/uL Neutrophils % 81 % Lymphocytes % 10 % Monocytes % 5 % Eosinophils % 3 % Basophils % 1 % Neutrophils # 9.9 H (1.3-7.7) k/uL Lymphocytes # 1.2 (1.0-4.8) k/uL Monocytes # 0.6 (0-1.0) k/uL Eosinophils # 0.3 (0-0.7) k/uL Basophils # 0.1 (0-0.2) k/uL PT 11.3 (9.0-12.0) sec INR 1.1 (<1.2) APTT 25.3 (22.0-30.0) sec Sodium (137-145) mmol/L Potassium (3.5-5.1) mmol/L Chloride (98-107) mmol/L Carbon Dioxide (22-30) mmol/L Anion Gap mmol/L BUN (9-20) mg/dL Creatinine (0.66-1.25) mg/dL Est GFR (CKD-EPI)AfAm (>60 ml/min/1.73 sqM) Est GFR (CKD-EPI)NonAf (>60 ml/min/1.73 sqM) Glucose (74-99) mg/dL Calcium (8.4-10.2) mg/dL Total Bilirubin (0.2-1.3) mg/dL AST (17-59) U/L ALT (4-49) U/L Alkaline Phosphatase (38-126) U/L Troponin I (0.000-0.034) ng/mL Total Protein (6.3-8.2) g/dL Albumin (3.5-5.0) g/dL Amylase (30-110) U/L Lipase (23-300) U/L Urine Color Light Yellow Urine Appearance Clear (Clear) Urine pH 6.0 (5.0-8.0) Ur Specific [place] 1.015 (1.001-1.035) Urine Protein 2+ H (Negative) Urine Glucose (UA) 4+ H (Negative) Urine Ketones 1+ H (Negative) Urine Blood Trace H (Negative) Urine Nitrite Negative (Negative) Urine Bilirubin Negative (Negative) Urine Urobilinogen <2.0 (<2.0) mg/dL Ur Leukocyte Esterase Negative (Negative) Urine RBC 1 (0-5) /hpf Urine WBC 2 (0-5) /hpf Urine Mucus Rare H (None) /hpf 02/15/20 02/15/20 Range/Units 09:37 09:37 WBC (3.8-10.6) k/uL RBC (4.30-5.90) m/uL Hgb (13.0-17.5) gm/dL Hct (39.0-53.0) % MCV (80.0-100.0) fL MCH (25.0-35.0) pg MCHC (31.0-37.0) g/dL RDW (11.5-15.5) % Plt Count (150-450) k/uL Neutrophils % % Lymphocytes % % Monocytes % % Eosinophils % % Basophils % % Neutrophils # (1.3-7.7) k/uL Lymphocytes # (1.0-4.8) k/uL Monocytes # (0-1.0) k/uL Eosinophils # (0-0.7) k/uL Basophils # (0-0.2) k/uL PT (9.0-12.0) sec INR (<1.2) APTT (22.0-30.0) sec Sodium 138 (137-145) mmol/L Potassium 4.5 (3.5-5.1) mmol/L Chloride 105 (98-107) mmol/L Carbon Dioxide 26 (22-30) mmol/L Anion Gap 7 mmol/L BUN 12 (9-20) mg/dL Creatinine 0.92 (0.66-1.25) mg/dL Est GFR (CKD-EPI)AfAm >90 (>60 ml/min/1.73 sqM) Est GFR (CKD-EPI)NonAf 87 (>60 ml/min/1.73 sqM) Glucose 209 H (74-99) mg/dL Calcium 9.3 (8.4-10.2) mg/dL Total Bilirubin 1.4 H (0.2-1.3) mg/dL AST 18 (17-59) U/L ALT 18 (4-49) U/L Alkaline Phosphatase 105 (38-126) U/L Troponin I <0.012 (0.000-0.034) ng/mL Total Protein 6.8 (6.3-8.2) g/dL Albumin 4.2 (3.5-5.0) g/dL Amylase 77 (30-110) U/L Lipase 78 (23-300) U/L Urine Color Urine Appearance (Clear) Urine pH (5.0-8.0) Ur Specific [place] (1.001-1.035) Urine Protein (Negative) Urine Glucose (UA) (Negative) Urine Ketones (Negative) Urine Blood (Negative) Urine Nitrite (Negative) Urine Bilirubin (Negative) Urine Urobilinogen (<2.0) mg/dL Ur Leukocyte Esterase (Negative) Urine RBC (0-5) /hpf Urine WBC (0-5) /hpf Urine Mucus (None) /hpf 02/15/20 11:18 EKG shows normal sinus rhythm possible left atrial enlargement. Borderline EKG. Majority 77 bpm. Was 174 ms. Care station 78 ms. QT QTc is 386/436 ms. - Radiology Data Radiology results: report reviewed CT abdomen pelvis from 02/13 shows fluid-filled small bowel loops could relate to some mild small bowel ileus. No inspection for mechanical obstruction. Small bowel distention is increased compared to old exam. KUB shows no evidence for free air obstruction. Moderate stool burn. Right sided [employer]LT[employer]ATE [employer]OPS TRAINER shunt catheter. Chest x-ray shows borderline heart size. Chronic appearing changes. No acute process noted. Disposition Clinical Impression: Hypertension, Constipation Disposition: HOME SELF-CARE Condition: Good Instructions (If sedation given, give patient instructions): Constipation (ED) Additional Instructions: Patient is to drink the magnesium citrate when you are at home. This can cause some abdominal cramping and eventually passing bowel movement. Follow-up with her primary care physician. Return to the emergency department if any alarming signs or symptoms occur. Advised to follow-up with your primary care physician regards to blood pressure and recommended resuming atenolol. Is patient prescribed a controlled substance at d/c from ED?: No Referrals: Dru Colby MD [Primary Care Provider] - 1-2 days Time of Disposition: 12:43
[2020-02-15 09:49] LABS: Basophils # (A) 0.1 k/uL (0-0.2); Basophils % (A) 1 %; Eosinophils # (A) 0.3 k/uL (0-0.7); Eosinophils % (A) 3 %; HCT 54.9 % (39.0-53.0); HGB 17.9 gm/dL (13.0-17.5); Lymphocytes # (A) 1.2 k/uL (1.0-4.8); Lymphocytes % (A) 10 %; MCH 30.3 pg (25.0-35.0); MCHC 32.6 g/dL (31.0-37.0); MCV 92.9 fL (80.0-100.0); Mean Platelet Volume 6.9; Monocytes # (A) 0.6 k/uL (0-1.0); Monocytes % (A) 5 %; Neutrophils # (A) 9.9 k/uL (1.3-7.7); Neutrophils % (A) 81 %; Platelet Count 221 k/uL (150-450); RBC 5.91 m/uL (4.30-5.90); RDW 13.1 % (11.5-15.5); WBC 12.3 k/uL (3.8-10.6)
[2020-02-15 09:50] LABS: Appearance,Urine Clear (Clear); Bilirubin,Urine Negative (Negative); Blood,Urine Trace (Negative); Color,Urine Light Yellow; Glucose,Urine (UA) 4+ (Negative); Ketones,Urine 1+ (Negative); Leukocyte Esterase,Urine Negative (Negative); Mucus,Urine Rare /hpf; Nitrite,Urine Negative (Negative); Protein,Urine 2+ (Negative); RBC,Urine 1 /hpf (0-5); Specific Gravity,Urine 1.015 (1.001-1.035); Urobilinogen,Urine <2.0 mg/dL (<2.0); WBC,Urine 2 /hpf (0-5)
[2020-02-15 10:01] LABS: ALT 18 U/L (4-49); AST 18 U/L (17-59); African American GFR (CKD) >90 (>60 ml/min/1.73 sqM); Albumin 4.2 g/dL (3.5-5.0); Alkaline Phosphatase 105 U/L (38-126); Amylase 77 U/L (30-110); Anion Gap 7 mmol/L; Blood Urea Nitrogen 12 mg/dL (9-20); Calcium 9.3 mg/dL (8.4-10.2); Carbon Dioxide 26 mmol/L (22-30); Chloride 105 mmol/L (98-107); Glucose 209 mg/dL (74-99); Non-African American GFR(CKD) 87 (>60 ml/min/1.73 sqM); Potassium 4.5 mmol/L (3.5-5.1); Sodium 138 mmol/L (137-145); Total Bilirubin 1.4 mg/dL (0.2-1.3); Total Protein 6.8 g/dL (6.3-8.2)
[2020-02-15 10:03] LABS: INR 1.1 (<1.2); Partial Thromboplastin Time 25.3 sec (22.0-30.0); Prothrombin Time 11.3 sec (9.0-12.0)
[2020-02-15] MEDS ORDERED: LABETALOL 5 MG/ML VIAL MDV IVP STA ×2 (10:19→12:19)
--- NOTE | 2020-02-15 10:35 | XR ---
EXAMINATION TYPE: XR chest 2V DATE OF EXAM: 02/15/2020 COMPARISON: 11/27/2019 HISTORY: 64-year-old male upper abdominal pain TECHNIQUE: PA and lateral views FINDINGS: Heart upper limits of normal in size. Mild ectatic/tortuous thoracic aorta. Diffuse interstitial prom inence appears chronic. 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 ACDF hardware. No consolidation or pleural eff usion. IMPRESSION: Borderline heart size and chronic appearing changes. No acute process seen.
--- NOTE | 2020-02-15 10:36 | XR ---
EXAMINATION TYPE: XR KUB DATE OF EXAM: 02/15/2020 Comparison: 09/15/2018 Clinical History: 64-year-old male upper abdominal pain Findings: No evidence for free intraperitoneal air. No dilated small bowel or air-fluid levels. Moderate stool burden. 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 No definite suspicious calcifications are seen. Impression: No evidence for free air or bowel obstruction. Moderate stool burden. Right-sided INSTRUCTIONAL TECHNOLOGY INSTRUCTOR shunt catheter.
[2020-02-15] MEDS ORDERED: MAGNESIUM CITRATE 296 ML BOTTLE PO ONE (11:18)
[2020-02-15] MEDS ORDERED: BISACODYL 5 MG TABLET.DR PO STA (11:18)
[2020-02-15] MEDS ORDERED: hydrALAZINE HCL 20 MG/ML 1 ML VIAL IVP STA (11:52)
[2020-02-15 13:16] VITALS: BP 170/95; PULSE 87; TEMP 98.6
== END 2020-02-15 13:16 | disposition home or self-care (01) ==
LOC: EC 08:25
DX: K59.00 Constipation, unspecified (principal); I10 Essential (primary) hypertension; R11.0 Nausea; K58.9 Irritable bowel syndrome, unspecified; E11.9 Type 2 diabetes mellitus without complications; E78.5 Hyperlipidemia, unspecified; I25.2 Old myocardial infarction; F17.200 Nicotine dependence, unspecified, uncomplicated; Z79.4 Long term (current) use of insulin; Z79.82 Long term (current) use of aspirin; Z79.899 Other long term (current) drug therapy; Z88.5 Allergy status to narcotic agent; Z88.6 Allergy status to analgesic agent; Z88.8 Allergy status to other drugs, medicaments and biological substances; Z91.048 Other nonmedicinal substance allergy status; Z87.442 Personal history of urinary calculi; Z98.2 Presence of cerebrospinal fluid drainage device; Z90.49 Acquired absence of other specified parts of digestive tract; Z86.73 Personal history of transient ischemic attack (TIA), and cerebral infarction without residual deficits; Z87.19 Personal history of other diseases of the digestive system
CPT/HCPCS: 36415; 93005; 80053; 82150; 83690; 84484; 85025; 85610; 85730; 81001; 87040; 71046; 74018; 99285; 96374; 96375 ×5; 96376; 96361 ×3; J2270; J0360; J1200; J2765; C9113

== ENCOUNTER 2020-02-17 04:30 | Inpatient (IN) | payer BC, MEDICARE ==
[2020-02-17] MEDS ORDERED: MORPHINE SULFATE 4 MG/ML SYRINGE IV STA (04:41)
[2020-02-17] MEDS ORDERED: SODIUM CHLORIDE 0.9% 500 ML 500 ML IV STA (04:41)
[2020-02-17] MEDS ORDERED: PANTOPRAZOLE 40 MG/10 ML VIAL IVP STA (04:41)
[2020-02-17] MEDS ORDERED: SODIUM CHLORIDE 0.9% 1,000 ML IV ONE (04:41)
[2020-02-17] MEDS ORDERED: SODIUM CHLORIDE 0.9% 1,000 ML IV STA ×2 (04:41)
--- NOTE | 2020-02-17 04:41 | ED ---
Recheck HPI - General Chief Complaint: Recheck/Abnormal Lab/Rx Stated Complaint: abd pain Time Seen by Provider: 02/17/20 04:39 Source: patient, RN notes reviewed, old records reviewed Mode of arrival: ambulatory Limitations: no limitations - History of Present Illness Initial Comments: This is a 64-year-old male DF for evaluation patient Candice for evaluation of severe pain persistent abdominal pain he has been seen before this week multiple times was diagnosed with ileus but can't keep any pain down persistent pain, unable to keep food down, patient having no bowel movement MD Complaint: other (Significant continued abdominal pain) -: hour(s) Returns Today for: persistent/worsening pain related to initial visit Symptoms Since Prior Visit: worsening pain Context: planned re-check (Patient is sick of the pain) Associated Symptoms: nausea Treatments Prior to Arrival: Given Pain Meds on - Related Data Home Medications Medication Instructions Recorded Confirmed Lisinopril [Zestril] 20 mg PO BID 11/24/15 02/26/20 Simvastatin [Zocor] 40 mg PO AC-SUPPER 11/24/15 02/26/20 Insulin Aspart [NovoLOG Flexpen] 10 units SQ AC-LUNCH 12/15/18 02/26/20 Insulin Aspart [NovoLOG Flexpen] 20 units SQ AC-BID@0900,1800 12/15/18 02/26/20 Insulin Detemir (Levemir) [Levemir] 45 unit SQ DAILY 12/15/18 02/26/20 Pantoprazole [Protonix] 40 mg PO DAILY 05/09/19 02/26/20 ALPRAZolam [Xanax] 0.5 mg PO BID PRN 11/27/19 02/26/20 Aspirin EC [Ecotrin Low Dose] 81 mg PO DAILY 02/15/20 02/26/20 Sucralfate [Carafate] 1 gm PO AC-TID 02/15/20 02/26/20 Atenolol 25 mg PO DAILY 02/17/20 02/26/20 Previous Rx's Medication Instructions Recorded Acetaminophen Tab [Tylenol] 650 mg PO Q4H PRN #30 tablet 02/19/20 buPROPion XL [Wellbutrin XL] 150 mg PO DAILY #30 tab.er.24h 02/20/20 traZODone HCL [Desyrel] 50 mg PO HS #30 tab 02/20/20 Acetaminophen with Codeine 1 tab PO Q4H PRN 3 Days #18 tab 02/26/20 [Tylenol w/codeine #3] Allergies Allergy/AdvReac Type Severity Reaction Status Date / Time blue dye Allergy Severe Rash/Hives Verified 02/26/20 06:30 codeine Allergy Itching Verified 02/26/20 06:30 naproxen sodium [From Aleve] Allergy Rash/Hives Verified 02/26/20 06:30 ondansetron [From Zofran] Allergy Rash/Hives Verified 02/26/20 06:30 gabapentin AdvReac Abdominal Verified 02/26/20 06:30 Pain naloxegol [From Movantik] AdvReac Nausea & Verified 02/26/20 06:30 Vomiting Review of Systems ROS Statement: Those systems with pertinent positive or pertinent negative responses have been documented in the HPI. ROS Other: All systems not noted in ROS Statement are negative. Past Medical History Past Medical History: Chest Pain / Angina, CVA/TIA, Diabetes Mellitus, Hearing Disorder / Deafness, Hyperlipidemia, Hypertension Additional Past Medical History / Comment(s): TIA, no residual effects, HX KIDNEY STONE. IBS, HX DIVERTICULITIS. HIATAL HERNIA, perontonial shunt, arthritis History of Any Multi-Drug Resistant Organisms: None Reported Past Surgical History: Back Surgery, Bowel Resection, Orthopedic Surgery Additional Past Surgical History / Comment(s): LEFT KNEE ARTHROSCOPIC. SHUNT [id number] R/T PRESSURE IN SKULL. 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 2020 right elbow surgery on tendens Past Anesthesia/Blood Transfusion Reactions: No Reported Reaction Past Psychological History: Anxiety, Depression Smoking Status: Current every day smoker Past Alcohol Use History: None Reported Past Drug Use History: Marijuana - Past Family History Mother Family Medical History: Cancer Additional Family Medical History / Comment(s): kidney Father Family Medical History: Cancer Additional Family Medical History / Comment(s): pancreatic General Exam Limitations: no limitations General appearance: alert, in no apparent distress, anxious Head exam: Present: atraumatic, normocephalic, normal inspection Eye exam: Present: normal appearance, PERRL, EOMI. Absent: scleral icterus, conjunctival injection, periorbital swelling ENT exam: Present: normal exam, mucous membranes moist Neck exam: Present: normal inspection. Absent: tenderness, meningismus, lymphadenopathy Respiratory exam: Present: normal lung sounds bilaterally. Absent: respiratory distress, wheezes, rales, rhonchi, stridor Cardiovascular Exam: Present: regular rate, normal rhythm, normal heart sounds. Absent: systolic murmur, diastolic murmur, rubs, gallop, clicks GI/Abdominal exam: Present: distended, tenderness, guarding (Involuntary), normal bowel sounds. Absent: rebound, rigid Extremities exam: Present: normal inspection, full ROM, normal capillary refill. Absent: tenderness, pedal edema, joint swelling, calf tenderness Back exam: Present: normal inspection Neurological exam: Present: alert, oriented X3, CN II-XII intact Psychiatric exam: Present: normal affect, normal mood Skin exam: Present: warm, dry, intact, normal color. Absent: rash Course Vital Signs 02/17/20 02/17/20 04:35 05:19 Temperature 98.5 F Pulse Rate 86 78 Respiratory 18 18 Rate Blood Pressure 200/115 154/99 O2 Sat by Pulse 96 99 Oximetry - Reevaluation(s) Reevaluation #1: Medical record is reviewed Patient pain and symptoms are controlled - Consultations Consultation #1: Spoke with admitting will admit okay for admission Medical Decision Making - Medical Decision Making 64 male DF for evaluation patient Dese for evaluation of abdominal pain known ileus, patient be admitted for evaluation and treatment - Lab Data Result diagrams: 02/20/20 05:59 02/20/20 05:59 Disposition Clinical Impression: Epigastric pain, Abdominal pain, Hiatal hernia, Ileus Disposition: ADMITTED IP TO THIS HOSP Condition: Fair Is patient prescribed a controlled substance at d/c from ED?: No
[2020-02-17 05:23] LABS: Basophils # (A) 0.1 k/uL (0-0.2); Basophils % (A) 1 %; Eosinophils # (A) 0.5 k/uL (0-0.7); Eosinophils % (A) 4 %; HCT 53.2 % (39.0-53.0); HGB 17.5 gm/dL (13.0-17.5); Lymphocytes # (A) 1.5 k/uL (1.0-4.8); Lymphocytes % (A) 12 %; MCH 30.6 pg (25.0-35.0); MCHC 32.9 g/dL (31.0-37.0); MCV 92.9 fL (80.0-100.0); Mean Platelet Volume 6.9; Monocytes # (A) 0.8 k/uL (0-1.0); Monocytes % (A) 6 %; Neutrophils # (A) 9.6 k/uL (1.3-7.7); Neutrophils % (A) 76 %; Platelet Count 253 k/uL (150-450); RBC 5.72 m/uL (4.30-5.90); RDW 13.3 % (11.5-15.5); WBC 12.7 k/uL (3.8-10.6)
[2020-02-17] MEDS: ONDANSETRON 4 MG/2 ML VIAL IVP STA ×2 (05:25→05:27)
[2020-02-17 05:32] LABS: ALT 17 U/L (4-49); AST 20 U/L (17-59); African American GFR (CKD) >90 (>60 ml/min/1.73 sqM); Albumin 4.4 g/dL (3.5-5.0); Alkaline Phosphatase 107 U/L (38-126); Amylase 86 U/L (30-110); Anion Gap 11 mmol/L; Blood Urea Nitrogen 15 mg/dL (9-20); Calcium 9.6 mg/dL (8.4-10.2); Carbon Dioxide 19 mmol/L (22-30); Chloride 105 mmol/L (98-107); Glucose 174 mg/dL (74-99); Non-African American GFR(CKD) 78 (>60 ml/min/1.73 sqM); Potassium 4.6 mmol/L (3.5-5.1); Sodium 135 mmol/L (137-145); Total Bilirubin 1.7 mg/dL (0.2-1.3); Total Protein 7.1 g/dL (6.3-8.2)
[2020-02-17] MEDS: MORPHINE SULFATE 2 MG/ML SYRINGE IVP PRN ×4 (08:51→22:41)
[2020-02-17 09:41] VITALS: BMI 29.2
[2020-02-17] MEDS ORDERED: ALPRAZolam 0.5 MG TAB PO PRN (09:51)
[2020-02-17] MEDS: atenoloL 25 MG TAB PO SCH (11:37)
[2020-02-17] MEDS: NICOTINE 21MG/24HR PATCH TRANSDERM SCH (11:37)
[2020-02-17] MEDS: lisinopriL 20 MG TAB PO SCH (11:37)
[2020-02-17] MEDS: PANTOPRAZOLE 40 MG/10 ML VIAL IVP SCH ×2 (11:38→20:20)
[2020-02-17] MEDS: SUCRALFATE 1 GM TAB PO SCH ×2 (11:40→15:37)
[2020-02-17 11:46] LABS: Glucose,Whole Blood 153 mg/dL (75-99)
--- NOTE | 2020-02-17 12:47 | P.HPIM ---
History of Present Illness Patient is 64-year-old male came in with compensative heart diffuse midabdominal pain about 9/10 in severity now 5/10 severity sharp in nature. Patient the has issues with gastroesophageal reflux disease for about any ear and patient is found to have hiatal hernia which is contributing that and patient is supposed to get Nissin's fundoplication supposed to have evaluation by general surgery. As patient's pain is uncontrollable that he even complained that he wants to commit suicide to the ER physician because of which patient has one-on-one sitter and patient does have depression because of which psychiatric was consulted. Patient denied any fever chills patient the lipase is within normal limits rest of the labs are within normal limits except for elevated white blood cell count and mildly elevated bilirubin of 1.7. Review of Systems REVIEW OF SYSTEMS: CONSTITUTIONAL: No fever, no malaise, no fatigue. HEENT: No recent visual problems or hearing problems. Denied any sore throat. CARDIOVASCULAR: No chest pain, orthopnea, PND, no palpitations, no syncope. PULMONARY: No shortness of breath, no cough, no hemoptysis. GASTROINTESTINAL: As mentioned in HPI, patient denied any vomiting but did have nausea NEUROLOGICAL: No headaches, no weakness, no numbness. HEMATOLOGICAL: Denies any bleeding or petechiae. GENITOURINARY: Denies any burning micturition, frequency, or urgency. MUSCULOSKELETAL/RHEUMATOLOGICAL: Denies any joint pain, swelling, or any muscle pain. ENDOCRINE: Denies any polyuria or polydipsia. The rest of the 14-point review of systems is negative. Past Medical History Past Medical History: Chest Pain / Angina, CVA/TIA, Diabetes Mellitus, GERD/Reflux, Hearing Disorder / Deafness, Hyperlipidemia, Hypertension, Renal Disease Additional Past Medical History / Comment(s): IDDM type II, neuropathy bilateral feet, CVA with no residual, TIA, hydrocephalus with [employer] shunt, IBS, diverticulitis/bowel resection, hiatal hernia, DJD, occasional cervical pain, migraines, skull/head injury at age 19 with lengthy hospitalization, nephrolithiasis-passed stone on his own, [place] bilaterally. History of Any Multi-Drug Resistant Organisms: None Reported Past Surgical History: Back Surgery, Bowel Resection, Orthopedic Surgery Additional Past Surgical History / Comment(s): 2019 R elbow tendon surgery, L knee arthroscopy, L hand amp d/t industrial accident, cervical fusion, bowel resection d/t diverticulitis, EGD, colonoscopy, hemorrhoidectomy, Past Anesthesia/Blood Transfusion Reactions: No Reported Reaction Past Psychological History: Anxiety, Depression Additional Psychological History / Comment(s): Pt resides with his spouse. He is independent. He drives. Pt states his depression/anxiety have increased over past 3-4 months. He states he feels hopeless for the present/future and states lately he has had suicidal thoughts off and on. States he thought of suicide this morning-"I would dump all my pills into a bowl of ice cream and eat it." Smoking Status: Current every day smoker Past Alcohol Use History: None Reported Additional Past Alcohol Use History / Comment(s): Pt started smoking in 1970 and is a ppd smoker. Pt has not drank alcohol in 30 yrs-he used to drink 1/5 a day. Past Drug Use History: Marijuana Additional Drug Use History / Comment(s): occasional use - Past Family History Mother Family Medical History: Cancer Additional Family Medical History / Comment(s): kidney Father Family Medical History: Cancer Additional Family Medical History / Comment(s): pancreatic Medications and Allergies Home Medications Medication Instructions Recorded Confirmed Type Lisinopril [Zestril] 20 mg PO BID 11/24/15 02/17/20 History Simvastatin [Zocor] 40 mg PO AC-SUPPER 11/24/15 02/17/20 History Insulin Aspart [NovoLOG Flexpen] 10 units SQ AC-LUNCH 12/15/18 02/17/20 History Insulin Aspart [NovoLOG Flexpen] 20 units SQ AC-BID@0900,1800 12/15/18 02/17/20 History Insulin Detemir (Levemir) [Levemir] 45 unit SQ DAILY 12/15/18 02/17/20 History Pantoprazole [Protonix] 40 mg PO DAILY 05/09/19 02/17/20 History ALPRAZolam [Xanax] 0.5 mg PO BID PRN 11/27/19 02/17/20 History Aspirin EC [Ecotrin Low Dose] 81 mg PO DAILY 02/15/20 02/17/20 History Sucralfate [Carafate] 1 gm PO AC-TID 02/15/20 02/17/20 History Atenolol 25 mg PO DAILY 02/17/20 02/17/20 History Allergies Allergy/AdvReac Type Severity Reaction Status Date / Time blue dye Allergy Severe Rash/Hives Verified 02/17/20 07:51 codeine Allergy Itching Verified 02/17/20 07:51 naproxen sodium [From Aleve] Allergy Rash/Hives Verified 02/17/20 07:51 ondansetron [From Zofran] Allergy Rash/Hives Verified 02/17/20 07:51 gabapentin AdvReac Abdominal Verified 02/17/20 07:51 Pain naloxegol [From Movantik] AdvReac Nausea & Verified 02/17/20 07:51 Vomiting Physical Exam Vitals: Vital Signs Temp Pulse Pulse Resp BP BP Pulse Ox 02/17/20 11:36 98.1 F 74 17 172/79 98 02/17/20 06:00 98.8 F 75 14 179/98 97 02/17/20 05:19 78 18 154/99 99 02/17/20 04:35 98.5 F 86 18 200/115 96 Intake and Output 02/16/20 02/17/20 02/17/20 22:59 06:59 14:59 Other: Weight 87.09 kg 87.09 kg PHYSICAL EXAMINATION: GENERAL: The patient is alert and oriented x3, not in any acute distress. Well developed, well nourished. HEENT: Pupils are round and equally reacting to light. EOMI. No scleral icterus. No conjunctival pallor. Normocephalic, atraumatic. No pharyngeal erythema. No thyromegaly. CARDIOVASCULAR: S1 and S2 present. No murmurs, rubs, or gallops. PULMONARY: Chest is clear to auscultation, no wheezing or crackles. ABDOMEN: Soft, nontender, nondistended, normoactive bowel sounds. No palpable organomegaly. MUSCULOSKELETAL: No joint swelling or deformity. EXTREMITIES: No cyanosis, clubbing, or pedal edema. NEUROLOGICAL: Gross neurological examination did not reveal any focal deficits. SKIN: No rashes. Results CBC & Chem 7: 02/17/20 05:15 02/17/20 05:15 Labs: Abnormal Lab Results - Last 24 Hours (Table) 02/17/20 02/17/20 02/17/20 Range/Units 05:15 05:15 11:45 WBC 12.7 H (3.8-10.6) k/uL Hct 53.2 H (39.0-53.0) % Neutrophils # 9.6 H (1.3-7.7) k/uL Sodium 135 L (137-145) mmol/L Carbon Dioxide 19 L (22-30) mmol/L Glucose 174 H (74-99) mg/dL POC Glucose (mg/dL) 153 H (75-99) mg/dL Total Bilirubin 1.7 H (0.2-1.3) mg/dL Thrombosis Risk Factor Assmnt - Choose All That Apply Any of the Below Risk Factors Present?: Yes Each Factor Represents 1 point: Age 41-60 years, Obesity (BMI >25) Other Risk Factors: Yes Each Risk Factor Represents 2 Points: Age 61-74 years Other congenital or acquired thrombophilia - If yes, enter type in comment: No Thrombosis Risk Factor Assessment Total Risk Factor Score: 4 Thrombosis Risk Factor Assessment Level: Moderate Risk Assessment and Plan Plan: -Abdominal pain probably due to gastritis and hiatal hernia, until surgery was consulted continue Protonix -Major depression: Psychiatric was consulted as mentioned above -Type diabetes mellitus -Gastroesophageal reflux disease -Hyperlipidemia hypertension elevated blood pressures patient will be resumed on home regimen and monitor blood pressures if needed will change the regimen. -Type 2 diabetes mellitus next and-possible chronic kidney disease stage II probably secondary to diabetic nephropathy -Due to prophylaxis with Lovenox
[2020-02-17] MEDS: INSULIN ASPART (NovoLOG) 100 UNIT/ML VIAL SQ SCH ×2 (13:17→17:26)
[2020-02-17 17:16] LABS: Glucose,Whole Blood 128 mg/dL (75-99)
[2020-02-17] MEDS ORDERED: ATORVASTATIN 20 MG TAB PO SCH (17:30)
--- NOTE | 2020-02-17 18:35 | P.GSCN ---
History of Present Illness Consult date: 02/17/20 History of present illness: CHIEF COMPLAINT: Abdominal pain HISTORY OF PRESENT ILLNESS: The patient is a 64 year old male who reports at least 3 or 4 month history of chronic sharp crampy abdominal pain worse in the right lower quadrant. He has history of ventricular peritoneal shunt. He reports pain moderate to severe crampy pain of the abdomen and has become worse in the last 3-4 days. In fact, he has multiple visits to emergency room at least 6 times in the past 2 months recently pertaining to his abdominal pain.. He has past history of bowel resection performed by Dr. Lasha Glez over 5 years ago for diverticulitis. He reports the pain is intolerable. Separately he is under suicide precautions for depressive disorder. He reports intermittent nausea. He also has change in bowel habits. PAST MEDICAL HISTORY: See list and reviewed. PAST SURGICAL HISTORY: See list and reviewed. MEDICATIONS: See list and reviewed. ALLERGIES: See list and reviewed. SOCIAL HISTORY: See list and reviewed. FAMILY HISTORY: See list and reviewed. REVIEW OF ORGAN SYSTEMS: CONSTITUTIONAL: No fevers or chills. EYES: Denies any trouble with vision. Wears glasses. HEENT: No difficulties with hearing. No nosebleeds. RESPIRATORY: Denies pneumonia. Denies current troubles with breathing or dyspnea on exertion. CARDIOVASCULAR: Denies any current chest pain, palpitations, or recent heart attacks. GASTROINTESTINAL: Denies fatty food intolerance. Has change in bowel habits and gas bloat. Reports gastroesophageal reflux disease GENITOURINARY: Denies any blood in urine or increased urinary frequency. NEUROLOGICAL: Has numbness or tingling along the distal extremities. Has headaches. MUSCULOSKELETAL: Has back pain, stiffness or joint arthritis. Previous amputation of the hand. SKIN: No current skin cancer. No rash. PSYCHIATRIC: Has current depression with suicidal thoughts. ENDOCRINE: Denies current thyroid disorders. Has blood sugar glucose intolerance. HEME/LYMPHATIC: Denies any lumps and bumps around the neck. No recent deep venous thrombosis. ALLERGY/IMMUNOLOGY: No immunoglobulin therapy. No immune deficiencies. BREAST: Denies current breast lumps, pain or nipple discharge. PHYSICAL EXAM: VITALS: Reviewed CONSTITUTIONAL: Well developed and in no acute distress. EYES: Conjuctivae without sclera icterus. Pupils are equally round and reactive to light. Extraocular movements grossly intact. HEAD, EARS, NOSE, THROAT: Moist buccal mucosa. Head is atraumatic, normocephalic. Hears conversational speech. No nasal drainage. NECK: Supple. No JV distention. No thyroidomegaly. RESPIRATORY: Non-labored respirations and equal bilateral excursions. No gross wheezes. CARDIOVASCULAR: Regular rate and rhythm. Extremities without moderate edema. Palpable 2+ radial pulses. ABDOMEN: Soft. Mild distention with tenderness on the right lower quadrant along previous IN HOME NANNY shunt incision. LYMPH: No neck lymphadenopathy. MUSCULOSKELETAL: Nail and fingers with good capillary refill. Amputation of hand noted SKIN: Warm and well perfused with good skin turgor. NEUROLOGIC: Cranial nerves II through XII grossly intact. Sensation upper and extremities intact. No focal or lateralizing signs. PSYCH: Flat affect. Alert and oriented to person, place and time. Displays appropriate insight. CLINCAL LABS: Reviewed. WBC on admission 12.7 RECORDS REVIEWED: Independently reviewed CT of the abdomen pelvis demonstrates moderate retained stool throughout the colon. Presence of IN HOME NANNY shunt along the right abdominal wall. Gallbladder present. No free air. Multiple cysts along the right renal organ identified. RADIOLOGY: Previous imaging and report reviewed of CT of the abdomen pelvis demonstrates and confirms renal cysts. Appendix is normal. Findings suggestive of ileus. EKG left atrial enlargement and borderline EKG MEDICAL RECORDS: Multiple ER visits at least 6 within last 2 months noted ASSESSMENT: 1. Chronic right lower quadrant abdominal pain 2. History of IN HOME NANNY shunt 3. Multiple abdominal surgeries for peritoneal adhesions 4. Depressive disorder with suicidal ideation PLAN: 1. Recommend diagnostic laparoscopy, robotic lysis of adhesions as patient is high risk for adhesions from peritoneal shunt and severity of abdominal pain. 2. CT of the abdomen pelvis also independently reviewed with findings discussed with patient for adhesions causing abdominal pain. 3. Nothing by mouth after midnight for lysis of adhesions tomorrow reviewed and agreed with patient and family at bedside. 4. Patient's elevated risk for complications due to acute suicidal ideation Thank you for this kind consultation. Past Medical History Past Medical History: Chest Pain / Angina, CVA/TIA, Diabetes Mellitus, GERD/Reflux, Hearing Disorder / Deafness, Hyperlipidemia, Hypertension, Renal Disease Additional Past Medical History / Comment(s): IDDM type II, neuropathy bilateral feet, CVA with no residual, TIA, hydrocephalus with IN HOME NANNY shunt, IBS, diver ticulitis/bowel resection, hiatal hernia, DJD, occasional cervical pain, migraines, skull/head injury at age 19 with lengthy hospitalization, nephrolithiasis-passed stone on his own, [place] bilaterally. History of Any Multi-Drug Resistant Organisms: None Reported Past Surgical History: Back Surgery, Bowel Resection, Orthopedic Surgery Additional Past Surgical History / Comment(s): 2020 R elbow tendon surgery, L knee arthroscopy, L hand amp d/t industrial accident, cervical fusion, bowel resection d/t diverticulitis, EGD, colonoscopy, hemorrhoidectomy, Past Anesthesia/Blood Transfusion Reactions: No Reported Reaction Past Psychological History: Anxiety, Depression Additional Psychological History / Comment(s): Pt resides with his spouse. He is independent. He drives. Pt states his depression/anxiety have increased over past 3-4 months. He states he feels hopeless for the present/future and states lately he has had suicidal thoughts off and on. States he thought of suicide this morning-"I would dump all my pills into a bowl of ice cream and eat it." Smoking Status: Current every day smoker Past Alcohol Use History: None Reported Additional Past Alcohol Use History / Comment(s): Pt started smoking in 1970 and is a ppd smoker. Pt has not drank alcohol in 30 yrs-he used to drink 1/5 a day. Past Drug Use History: Marijuana Additional Drug Use History / Comment(s): occasional use - Past Family History Mother Family Medical History: Cancer Additional Family Medical History / Comment(s): kidney Father Family Medical History: Cancer Additional Family Medical History / Comment(s): pancreatic Medications and Allergies Home Medications Medication Instructions Recorded Confirmed Type Lisinopril [Zestril] 20 mg PO BID 11/24/15 02/17/20 History Simvastatin [Zocor] 40 mg PO AC-SUPPER 11/24/15 02/17/20 History Insulin Aspart [NovoLOG Flexpen] 10 units SQ AC-LUNCH 12/15/18 02/17/20 History Insulin Aspart [NovoLOG Flexpen] 20 units SQ AC-BID@0900,1800 12/15/18 02/17/20 History Insulin Detemir (Levemir) [Levemir] 45 unit SQ DAILY 12/15/18 02/17/20 History Pantoprazole [Protonix] 40 mg PO DAILY 05/09/19 02/17/20 History ALPRAZolam [Xanax] 0.5 mg PO BID PRN 11/27/19 02/17/20 History Aspirin EC [Ecotrin Low Dose] 81 mg PO DAILY 02/15/20 02/17/20 History Sucralfate [Carafate] 1 gm PO AC-TID 02/15/20 02/17/20 History Atenolol 25 mg PO DAILY 02/17/20 02/17/20 History Acetaminophen Tab [Tylenol Tab] 650 mg PO Q4H PRN #30 tablet 02/19/20 Rx buPROPion XL [Wellbutrin XL] 150 mg PO DAILY #30 tab.er.24h 02/20/20 Rx traZODone HCL [Desyrel] 50 mg PO HS #30 tab 02/20/20 Rx Allergies Allergy/AdvReac Type Severity Reaction Status Date / Time blue dye Allergy Severe Rash/Hives Verified 02/18/20 11:26 codeine Allergy Itching Verified 02/18/20 11:26 naproxen sodium [From Aleve] Allergy Rash/Hives Verified 02/18/20 11:26 ondansetron [From Zofran] Allergy Rash/Hives Verified 02/18/20 11:26 gabapentin AdvReac Abdominal Verified 02/18/20 11:26 Pain naloxegol [From Movantik] AdvReac Nausea & Verified 02/18/20 11:26 Vomiting Surgical - Exam Vital Signs Temp Pulse Resp BP Pulse Ox 98.5 F 86 18 200/115 96 02/17/20 04:35 02/17/20 04:35 02/17/20 04:35 02/17/20 04:35 02/17/20 04:35 Results - Labs 02/20/20 05:59 02/20/20 05:59 Abnormal Lab Results - Last 24 Hours (Table) 02/17/20 02/17/20 02/17/20 Range/Units 05:15 05:15 11:45 WBC 12.7 H (3.8-10.6) k/uL Hct 53.2 H (39.0-53.0) % Neutrophils # 9.6 H (1.3-7.7) k/uL Sodium 135 L (137-145) mmol/L Carbon Dioxide 19 L (22-30) mmol/L Glucose 174 H (74-99) mg/dL POC Glucose (mg/dL) 153 H (75-99) mg/dL Total Bilirubin 1.7 H (0.2-1.3) mg/dL 02/17/20 Range/Units 17:15 WBC (3.8-10.6) k/uL Hct (39.0-53.0) % Neutrophils # (1.3-7.7) k/uL Sodium (137-145) mmol/L Carbon Dioxide (22-30) mmol/L Glucose (74-99) mg/dL POC Glucose (mg/dL) 128 H (75-99) mg/dL Total Bilirubin (0.2-1.3) mg/dL Diabetes panel 02/17/20 Range/Units 05:15 Sodium 135 L (137-145) mmol/L Potassium 4.6 (3.5-5.1) mmol/L Chloride 105 (98-107) mmol/L Carbon Dioxide 19 L (22-30) mmol/L BUN 15 (9-20) mg/dL Creatinine 1.01 (0.66-1.25) mg/dL Glucose 174 H (74-99) mg/dL Calcium 9.6 (8.4-10.2) mg/dL AST 20 (17-59) U/L ALT 17 (4-49) U/L Alkaline Phosphatase 107 (38-126) U/L Total Protein 7.1 (6.3-8.2) g/dL Albumin 4.4 (3.5-5.0) g/dL Calcium panel 02/17/20 Range/Units 05:15 Calcium 9.6 (8.4-10.2) mg/dL Albumin 4.4 (3.5-5.0) g/dL Pituitary panel 02/17/20 Range/Units 05:15 Sodium 135 L (137-145) mmol/L Potassium 4.6 (3.5-5.1) mmol/L Chloride 105 (98-107) mmol/L Carbon Dioxide 19 L (22-30) mmol/L BUN 15 (9-20) mg/dL Creatinine 1.01 (0.66-1.25) mg/dL Glucose 174 H (74-99) mg/dL Calcium 9.6 (8.4-10.2) mg/dL Adrenal panel 02/17/20 Range/Units 05:15 Sodium 135 L (137-145) mmol/L Potassium 4.6 (3.5-5.1) mmol/L Chloride 105 (98-107) mmol/L Carbon Dioxide 19 L (22-30) mmol/L BUN 15 (9-20) mg/dL Creatinine 1.01 (0.66-1.25) mg/dL Glucose 174 H (74-99) mg/dL Calcium 9.6 (8.4-10.2) mg/dL Total Bilirubin 1.7 H (0.2-1.3) mg/dL AST 20 (17-59) U/L ALT 17 (4-49) U/L Alkaline Phosphatase 107 (38-126) U/L Total Protein 7.1 (6.3-8.2) g/dL Albumin 4.4 (3.5-5.0) g/dL Assessment and Plan (1) Right lower quadrant abdominal pain Status: Acute Code(s): R10.31 - RIGHT LOWER QUADRANT PAIN SNOMED Code(s): 252535382 (2) Peritoneal adhesions Status: Acute Code(s): K66.0 - PERITONEAL ADHESIONS (POSTPROCEDURAL) (POSTINFECTION) SNOMED Code(s): 01918817 (3) IN HOME NANNY (ventriculoperitoneal) shunt status Status: Acute Code(s): Z98.2 - PRESENCE OF CEREBROSPINAL FLUID DRAINAGE DEVICE SNOMED Code(s): 448466889 (4) Suicidal ideation Status: Acute Code(s): R45.851 - SUICIDAL IDEATIONS SNOMED Code(s): 4205968 (5) Insulin dependent diabetes mellitus Status: Acute Code(s): E11.9 - TYPE 2 DIABETES MELLITUS WITHOUT COMPLICATIONS; Z79.4 - CUSTODIAL (CURRENT) USE OF INSULIN SNOMED Code(s): 00424580 (6) Leukocytosis Status: Acute Code(s): D72.829 - ELEVATED WHITE BLOOD CELL COUNT, UNSPECIFIED SNOMED Code(s): 545761552
[2020-02-17 19:56] LABS: Glucose,Whole Blood 159 mg/dL (75-99)
[2020-02-17] MEDS: ATORVASTATIN 20 MG TAB PO SCH (20:21)
[2020-02-18] MEDS: MORPHINE SULFATE 2 MG/ML SYRINGE IVP PRN ×3 (05:14→22:32)
[2020-02-18] MEDS: atenoloL 25 MG TAB PO SCH (05:15)
[2020-02-18] MEDS: lisinopriL 20 MG TAB PO SCH (05:17)
[2020-02-18 07:24] LABS: Glucose,Whole Blood 158 mg/dL (75-99)
[2020-02-18] MEDS: PANTOPRAZOLE 40 MG/10 ML VIAL IVP SCH ×2 (08:08→20:38)
[2020-02-18] MEDS: SUCRALFATE 1 GM TAB PO SCH ×3 (08:08→18:18)
[2020-02-18] MEDS: NICOTINE 21MG/24HR PATCH TRANSDERM SCH (08:08)
[2020-02-18] MEDS: INSULIN ASPART (NovoLOG) 100 UNIT/ML VIAL SQ SCH ×3 (08:37→20:34)
[2020-02-18] MEDS ORDERED: hydrALAZINE HCL 20 MG/ML 1 ML VIAL IVP STA (08:48)
[2020-02-18] MEDS ORDERED: ONDANSETRON 4 MG/2 ML VIAL IVP PRN (08:48)
[2020-02-18 08:50] LABS: HCT 49.9 % (39.0-53.0); HGB 15.9 gm/dL (13.0-17.5); MCH 29.9 pg (25.0-35.0); MCHC 31.8 g/dL (31.0-37.0); MCV 94.2 fL (80.0-100.0); Mean Platelet Volume 7.5; Platelet Count 198 k/uL (150-450); RDW 13.2 % (11.5-15.5); WBC 8.9 k/uL (3.8-10.6)
[2020-02-18] MEDS ORDERED: hydrALAZINE HCL 10 MG TAB PO STA (08:51)
[2020-02-18 09:03] LABS: Calcium 8.8 mg/dL (8.4-10.2); Potassium 4.4 mmol/L (3.5-5.1)
[2020-02-18] MEDS ORDERED: ACETAMINOPHEN TAB 500 MG TAB PO STA (09:19)
[2020-02-18] MEDS ORDERED: TAMSULOSIN 0.4 MG CAP.ER.24H PO STA (09:19)
--- NOTE | 2020-02-18 10:20 | P.CN ---
Psychiatric Consult - . Consult date: 02/18/20 Consult:: 02/18/20 10:03 IDENTIFYING DATA: This patient is a 64-year-old male who currently lives with his in a house is retired and used to work at a [employer] company, has 1 daughter and 2 grandkids. HISTORY OF PRESENT ILLNESS: The patient presented to the hospital with complaints of abdominal pain, patient has a history of GERD with a hiatal hernia and admitted to uncontrollable pain. Patient apparently mentioned suicidal t houghts to the ER doctor at the time of evaluation. Patient is scheduled for surgery today for lysis of adhesions. Psychiatry was consulted for suicidal thoughts. Patient was seen at the bedside with a sitter and spoke about the hiatal hernia and his stomach pain. He states that he's been dealing with the hiatal hernia for about one year and the abdominal pain for 2 months now. He states that the pain is now a 5 out of 10 and has gotten better being in the hospital. Patient was tearful at times when describing his past year and stating how difficult it is been for him. He states that he recently is injured his arm when he tried to catch his dog from falling. 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 He also endorsed anxiety and having erectile dysfunction for approximately 2 years now. He states that it has been difficult between him and his . He states that he is fairly happy with his in his marriage and claims that he wants to live for his grandchildren his and his family. He also claims that "suicide is a coward's way out". He did endorse having fleeting thoughts of suicide for the past 2 months but now states that he does not have any suicidal thoughts. He claims that his sleep is poor approximately 2 hours a night. He denies any access to guns or weapons. . At this time patient denies any suicidal or homical ideations, intent or plan. Patient denies any auditory, visual hallucinations and denies any paranoia or delusions. Patients admits to using cigarettes daily and marijuana occasionally and denies any other recreational drug use. PAST PSYCHIATRIC HISTORY: Patient has a a history of anxiety and depression. Patient denies being on any psychiatric medication except for Xanax when necessary. Patient denies any previous psychiatric hospitalizations.Patient denies any psychiatric outpatient follow-up.Patient denies any history of suicide attempts in the past. PAST MEDICAL HISTORY: diabetes mellitus, GERD, hypertension, hearing loss, CVA, hyperlipidemia. ALLERGIES: as per EMR. CHEMICAL DEPENDENCY HISTORY: as per HPI. FAMILY PSYCHIATRIC/SUBSTANCE USE HISTORY: he states that his brother has schizophrenia. 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 He did state that he injured his left hand in a [employer] press accident. He claims that he worked in a [employer] afterwards and retired now. He currently lives in a house with his is retired and has 1 daughter and 2 grandkids. MENTAL STATUS EXAM: General Appearance: Patient appears to be stated age is alert, pleasant, and cooperative. Patient appears to have fair hygiene and grooming wearing hospital gown with fair eye contact. Behavior: Patient is calmly lying in bed without any agitated behavior.patient was tearful. Speech: Patient's speech is fluent and nonpressured. Mood/Affect: Patient reports their mood is "depressed", affect is congruentand tearful at times. Suicidality/Homicidality: Patient denies having any suicidal or homicidal ideation intent or plan. Perceptions: Patient denies any visual hallucinations and denies any auditory hallucinations Though content/process: There is no evidence of any delusional thought content and thought process is linear and goal-directed. hypersensitive and excessive guilt. Memory and concentration: AOX3, grossly intact for the purposes of this session. Can spell "WORLD" backwards Judgment and insight: fair IMPRESSIONS: major depressive disorder, without psychotic features Anxiety disorder unspecified Cannabis use disorder Nicotine dependence PLAN: -At this time patient DOES NOT meet criteria for inpatient psychiatric admission, however will continue to follow along in patient's care to see if patient may need psychiatric hospitalization in the next few days. -Would recommend the following medication changes/additions: We'll start Wellbutrin XL 150 mg daily starting tomorrow for mood, we'll also start trazodone 50 mg daily at bedtime for insomnia/mood. Continue with Xanax when necessary as prescribed. -Continue 1:1 sitter for safety for now and possibly discontinue tomorrow. -Will continue to follow along -Please contact with any questions. 07/02/20 10:18
[2020-02-18 10:55] LABS: Glucose,Whole Blood 157 mg/dL (75-99)
[2020-02-18] MEDS ORDERED: LACTATED RINGERS 1,000 ML IV ONE ×2 (11:24→13:44)
[2020-02-18 11:30] LABS: Glucose,Whole Blood 156 mg/dL (75-99)
[2020-02-18] MEDS ORDERED: HEPARIN SODIUM,PORCINE 5,000 UNIT/ML 1 ML VIAL ONE (11:33)
[2020-02-18] MEDS ORDERED: HEPARIN SODIUM,PORCINE 5,000 UNIT/ML 1 ML VIAL SQ ONE (12:00)
[2020-02-18] MEDS ORDERED: NEOSTIGMINE 1 MG/ML 10 ML VIAL ONE (12:24)
[2020-02-18] MEDS ORDERED: GLYCOPYRROLATE 0.2 MG/ML 2 ML VIAL ONE (12:24)
[2020-02-18] MEDS ORDERED: HYDROmorphone (PF) 1 MG/ML ONE (12:24)
[2020-02-18] MEDS ORDERED: LABETALOL 5 MG/ML VIAL MDV ONE (12:24)
[2020-02-18] MEDS ORDERED: ePHEDrine SULFATE/0.9% NACL/PF 50 MG/5 ML SYRINGE IV ONE (12:24)
[2020-02-18] MEDS ORDERED: SUCCINYLCHOLINE CHLORIDE 100 MG/5 ML SYR IV ONE (12:24)
[2020-02-18] MEDS ORDERED: fentaNYL (PF) 50 MCG/ML 2 ML AMP ONE (12:24)
[2020-02-18] MEDS ORDERED: PROPOFOL 10 MG/ML 20 ML VIAL IV ONE (12:24)
[2020-02-18] MEDS ORDERED: ROCURONIUM BROMIDE 10 MG/ML 5 ML VIAL IV ONE (12:24)
[2020-02-18] MEDS ORDERED: MIDAZOLAM 2 MG/2 ML VIAL ONE (12:24)
[2020-02-18] MEDS ORDERED: LIDOCAINE 1% INJ 10MG/ML (20 ML MDV) ONE (12:24)
[2020-02-18] MEDS ORDERED: WATER FOR INJECTION, STERILE 10 ML VIAL IV ONE (12:24)
[2020-02-18] MEDS ORDERED: BUPIVACAIN-EPI 0.25%-1:200,000 30 ML VIAL SQ ONE (12:33)
--- NOTE | 2020-02-18 14:27 | P.PN ---
Subjective Progress Note Date: 02/18/20 Principal diagnosis: Patient is 64-year-old male came in with compensative heart diffuse midabdominal pain about 9/10 in severity now 5/10 severity sharp in nature. Patient the has issues with gastroesophageal reflux disease for about any ear and patient is found to have hiatal hernia which is contributing that and patient is supposed to get Nissin's fundoplication supposed to have evaluation by general surgery. As patient's pain is uncontrollable that he even complained that he wants to commit suicide to the ER physician because of which patient has one-on-one sitter and patient does have depression because of which psychiatric was consulted. Patient denied any fever chills patient the lipase is within normal limits rest of the labs are within normal limits except for elevated white blood cell count and mildly elevated bilirubin of 1.7. 02/18/2020 Patient is seen and evaluated in follow-up today awaiting to undergo surgery for lysis of adhesions with Dr. Tamayo today. Patient continues to have abdominal discomfort and has been nothing by mouth this morning for the procedure. Patient is also having some nausea and Zofran ordered. Psychiatry also following the patient as patient continues to be depressed and made comments of suicidal ideations. Per psychiatry will make antidepressant medication recommendations to initiate. Patient is very tearful and is also having personal issues at home that he is trying to manage. Patient denies any chest pain, shortness of breath, or palpitations. Patient is afebrile. Patient has intermittent nausea with no reports of vomiting noted. Will continue to monitor closely. Objective - Vital Signs Vital signs: Vital Signs Temp 96.6 F L 02/18/20 11:22 Pulse 72 02/18/20 11:22 Resp 17 02/18/20 11:22 BP 195/97 02/18/20 11:22 Pulse Ox 96 02/18/20 11:22 Intake & Output 02/17/20 02/18/20 02/18/20 18:59 06:59 18:59 Intake Total 820 1250 Balance 820 1250 Weight 87.09 kg Intake: IV 1250 Intake, IV Titration 800 Amount Sodium Chloride 0.9% 1, 800 000 ml @ 100 mls/hr IV . Q10H ONE Rx#:[id number] Oral 20 Other: Voiding Method Toilet # Voids 3 3 1 - Exam GENERAL: The patient is alert and oriented x3, tearful. Well developed, well nourished. HEENT: Pupils are round and equally reacting to light. EOMI. No scleral icterus. No conjunctival pallor. Normocephalic, atraumatic. No pharyngeal erythema. No thyromegaly. CARDIOVASCULAR: S1 and S2 present. No murmurs, rubs, or gallops. PULMONARY: Chest is clear to auscultation, no wheezing or crackles. ABDOMEN: Soft, nontender, nondistended, normoactive bowel sounds. No palpable organomegaly. MUSCULOSKELETAL: No joint swelling or deformity. EXTREMITIES: No cyanosis, clubbing, or pedal edema. NEUROLOGICAL: Gross neurological examination did not reveal any focal deficits. SKIN: No rashes. - Labs CBC & Chem 7: 02/18/20 07:46 02/18/20 07:46 Labs: Abnormal Lab Results - Last 24 Hours (Table) 02/17/20 02/17/20 02/18/20 Range/Units 17:15 19:53 07:22 Sodium (137-145) mmol/L Glucose (74-99) mg/dL POC Glucose (mg/dL) 128 H 159 H 158 H (75-99) mg/dL 02/18/20 02/18/20 02/18/20 Range/Units 07:46 10:52 11:28 Sodium 135 L (137-145) mmol/L Glucose 148 H (74-99) mg/dL POC Glucose (mg/dL) 157 H 156 H (75-99) mg/dL Assessment and Plan Assessment: -Abdominal pain probably due to gastritis and hiatal hernia, patient scheduled to undergo lysis of adhesions with surgery today -Major depression: Psychiatry following continue suicide sitter until cleared by psychiatry -Type II diabetes mellitus -Gastroesophageal reflux disease -Hyperlipidemia -hypertension: elevated blood pressures patient will be resumed on home regimen and monitor blood pressures if needed will change the regimen. -possible chronic kidney disease stage II probably secondary to diabetic nephropathy -DVT prophylaxis with Lovenox Plan: Continue current medications, management, and symptomatic treatment. Patient undergoing surgery today for lysis of adhesions. Will await report. Continue with patient's sitter for suicide precautions at the bedside until cleared by psychiatry. Will continue to monitor blood sugars closely and treat accordingly with sliding scale. Will continue to monitor vital signs closely and monitor for hypertension and possible postop hypotension. Further recommendations to follow.
[2020-02-18] MEDS ORDERED: hydrALAZINE HCL 20 MG/ML 1 ML VIAL IVP ONE (15:00)
[2020-02-18 15:11] LABS: Glucose,Whole Blood 163 mg/dL (75-99)
--- NOTE | 2020-02-18 15:18 | P.OP ---
Date of Procedure: 02/18/20 Description of Procedure: SURGEON: JEAN PAUL BRANDON MD PREOPERATIVE DIAGNOSES: 1. Right lower quadrant abdominal pain 2. History of multiple abdominal surgeries 3. History of small bowel obstruction with resection 4. Chronic pain syndrome 5. Gastroesophageal reflux disease 6. Diabetes type 2, insulin-dependent 7. Hypertensive heart disease 8. Generalized anxiety disorder 9. Depressive disorder with recent suicidal ideation 10. Hyperlipidemia 11. Diabetic neuropathy, bilateral feet 12. Upper extremity amputee 13. Hydrocephalus 14. History of ventriculoperitoneal shunt 15. History of cerebrovascular accident 16. Diabetic nephropathy, stage III POSTOPERATIVE DIAGNOSES: 1. Right lower quadrant abdominal pain 2. History of multiple abdominal surgeries 3. History of small bowel obstruction with resection 4. Chronic pain syndrome 5. Gastroesophageal reflux disease 6. Diabetes type 2, insulin-dependent 7. Hypertensive heart disease 8. Generalized anxiety disorder 9. Depressive disorder with recent suicidal ideation 10. Hyperlipidemia 11. Diabetic neuropathy, bilateral feet 12. Upper extremity amputee 13. Hydrocephalus 14. History of ventriculoperitoneal shunt 15. History of cerebrovascular accident 16. Diabetic nephropathy, stage III 17. Severe peritoneal adhesions greater omentum to the abdominal wall 18. Severe interloop adhesions, right lower quadrant OPERATION: 1. Robotic-assisted da Peyman Xi laparoscopic extensive lysis of adhesions over 1 hr COMPLICATIONS: None. Anesthesia: GETA, local Estimated Blood Loss (ml): 5 Pathology: none sent Condition: stable Disposition: same day OPERATIVE FINDINGS: 1. Severe peritoneal adhesions involving right lower quadrant to DRAFTER GEOPHYSICAL shunt. 2. Severe interloop adhesions right lower quadrant lysed 3. All abdominal wall adhesions lysed INDICATIONS: The patient is a 64-year-old male with severe right lower quadrant abdominal pain. His personal history of small bowel obstruction requiring resection. Despite conservative measures, his abdominal pain continued to persist and diagnostic laparoscopy lysis of adhesions was described.. Surgical intervention with lysis of adhesions and possible incisional hernia repair was described given his history of severe adhesive band disease. Informed consent was obtained. Robotic assisted laparoscopic approach was described. Benefits and risks of the procedure including but not limited to bleeding, infection, injury to the small bowel was described. Informed consent was obtained. DESCRIPTION OF PROCEDURE: Patient was brought to the operating room, placed in supine position. After general induction, the abdomen had been prepped and draped in standard sterile fashion. The robotic da Peyman XI system was primed. After a timeout protocol was performed, the patient had been prepped and draped in standard sterile fashion. The robot was docked along the right lateral abdomen. The patient was repositioned in reverse Trendelenburg position of 6- degrees. A 5 mm 0 degrees laparoscopic trocar entry was performed along the left upper quadrant. The abdomen was insufflated to 15 mmHg pressure which he tolerated well. Diagnostic laparoscopy demonstrated severe intra-abdominal adhesions involving the midline. Small bowel was adhered to the right lower quadrant with moderate interloop adhesions. No injury to the bowel, viscera or mesentery was identified. Next, three 8 mm robotic ports were placed along the left lateral abdominal wa ll. Please note that the ports were placed at least 8 cm away from the target anatomy. Instruments were interchanged using 3 ports for a grasper, vessel sealer, and scissors with cautery. Instruments were interchanged by the employee relations assistant including Bovie cautery scissors. I had sat at the console. Extensive lysis of adhesions over 1 hour was performed. Carefully the adhesions were taken down without injury to the small bowel using vessel sealer and cautery on scissors. Interloop adhesions along the right lower quadrant were similarly lysed using scissors. The DRAFTER GEOPHYSICAL shunt was identified along its course within the abdominal wall and undisturbed and uninjured. Dense adhesions along the DRAFTER GEOPHYSICAL shunt were similarly dissected free of omentum. Hemostasis was excellent. The robot was undocked. All pneumoperitoneum and instruments were evacuated from the abdominal cavity. The incisions were reapproximated using 4-0 Monocryl in an interrupted subcuticular fashion. Please note along the trocar sites, local anesthetic was placed as a field block prior to insertion of all instruments. Liquid glue was applied to the skin. At the end of the procedure needle, sponge, and instrument count had been verified correct by the surgical appliance fitter. The patient was transferred to postanesthesia care unit in stable condition. Intraoperative images including findings were described to the patients family.
[2020-02-18 17:11] LABS: Glucose,Whole Blood 170 mg/dL (75-99)
[2020-02-18] MEDS: INSULIN DETEMIR (LEVEMIR) 100 UNIT/ML SYR SQ SCH (17:44)
[2020-02-18 20:16] LABS: Glucose,Whole Blood 158 mg/dL (75-99)
[2020-02-18] MEDS: ATORVASTATIN 20 MG TAB PO SCH (20:38)
[2020-02-18] MEDS: traZODone HCL 50 MG TAB PO SCH (20:38)
--- NOTE | 2020-02-19 06:09 | P.PN ---
Progress Note - Text Progress Note Date: 02/19/20 Patient reassessed this evening. Reports moderate improvement of right lower quadrant abdominal pain. Appropriate postoperative incisional pain along the left abdomen. May start diet. Clear from surgical standpoint for disposition home once medically cleared. Follow-up as outpatient in 1 week.
[2020-02-19 07:13] LABS: Glucose,Whole Blood 188 mg/dL (75-99)
[2020-02-19 07:51] LABS: Basophils % (A) 0 %; Eosinophils # (A) 0.4 k/uL (0-0.7); Eosinophils % (A) 3 %; HCT 45.8 % (39.0-53.0); HGB 15.3 gm/dL (13.0-17.5); Lymphocytes # (A) 0.2 k/uL (1.0-4.8); Lymphocytes % (A) 1 %; MCH 31.6 pg (25.0-35.0); MCHC 33.5 g/dL (31.0-37.0); MCV 94.3 fL (80.0-100.0); Mean Platelet Volume 7.8; Monocytes # (A) 0.7 k/uL (0-1.0); Monocytes % (A) 4 %; Neutrophils # (A) 14.6 k/uL (1.3-7.7); Neutrophils % (A) 91 %; Platelet Count 186 k/uL (150-450); RBC 4.85 m/uL (4.30-5.90); RDW 13.3 % (11.5-15.5)
[2020-02-19 07:59] LABS: African American GFR (CKD) >90 (>60 ml/min/1.73 sqM); Anion Gap 8 mmol/L; Blood Urea Nitrogen 13 mg/dL (9-20); Calcium 8.3 mg/dL (8.4-10.2); Carbon Dioxide 22 mmol/L (22-30); Chloride 104 mmol/L (98-107); Glucose 192 mg/dL (74-99); Non-African American GFR(CKD) 83 (>60 ml/min/1.73 sqM); Sodium 134 mmol/L (137-145)
[2020-02-19] MEDS: ACETAMINOPHEN TAB 325 MG TAB PO SCH ×3 (08:04→11:58)
[2020-02-19] MEDS: PANTOPRAZOLE 40 MG/10 ML VIAL IVP SCH ×2 (08:05→20:39)
[2020-02-19] MEDS: NICOTINE 21MG/24HR PATCH TRANSDERM SCH (08:05)
[2020-02-19] MEDS: buPROPion XL 150 MG TAB.ER.24H PO SCH (08:05)
[2020-02-19] MEDS: atenoloL 25 MG TAB PO SCH (08:05)
[2020-02-19] MEDS: INSULIN DETEMIR (LEVEMIR) 100 UNIT/ML SYR SQ SCH (08:05)
[2020-02-19] MEDS: lisinopriL 20 MG TAB PO SCH (08:05)
[2020-02-19] MEDS: INSULIN ASPART (NovoLOG) 100 UNIT/ML VIAL SQ SCH ×3 (08:05→17:32)
[2020-02-19] MEDS: SUCRALFATE 1 GM TAB PO SCH ×3 (08:05→17:31)
[2020-02-19 12:09] LABS: Glucose,Whole Blood 215 mg/dL (75-99)
--- NOTE | 2020-02-19 12:21 | P.PN ---
<Isabelle Gonzalez Iman - Last Filed: 02/19/20 12:15> Subjective Progress Note Date: 02/19/20 CHIEF COMPLAINT: Abdominal pain HISTORY OF PRESENT ILLNESS: 64-year-old male who is status post robotic-assisted laparoscopic extensive lysis of adhesions with Dr. Mercedes. Postoperative day #1. Patient examined at the bedside. He reports his pain is tolerable. Tolerating diet without nausea or vomiting. Vital signs are stable. WBC 16.0. PHYSICAL EXAM: VITAL SIGNS: Reviewed GENERAL: Well-developed in no acute distress. HEENT: No sclera icterus. Extraocular movements grossly intact. Moist buccal mucosa. Head is atraumatic, normocephalic. Hears conversational speech. No nasal drainage. NECK: Supple without lymphadenopathy. CHEST: Non-labored respirations and equal bilateral excursions. CARDIOVASCULAR: Regular rate with regular rhythm. Palpable 2+ radial pulses. ABDOMEN: Soft. Nondistended. Nontender. Surgical sites clean dry intact. MUSCULOSKELETAL: No clubbing or cyanosis. NEUROLOGIC: No focal or lateralizing signs. Cranial nerves II through XII grossly intact. PSYCH: Appropriate affect. Alert and oriented to person, place and time. SKIN: Well perfused. Good skin turgor. ASSESSMENT: 1. Right lower quadrant abdominal pain 2. History of multiple abdominal surgeries 3. History of small bowel obstruction with resection 4. Chronic pain syndrome 5. Gastroesophageal reflux disease 6. Diabetes type 2, insulin-dependent 7. Hypertensive heart disease 8. Generalized anxiety disorder 9. Depressive disorder with recent suicidal ideation 10. Hyperlipidemia 11. Diabetic neuropathy, bilateral feet 12. Upper extremity amputee 13. Hydrocephalus 14. History of ventriculoperitoneal shunt 15. History of cerebrovascular accident 16. Diabetic nephropathy, stage III 17. Severe peritoneal adhesions greater omentum to the abdominal wall 18. Severe interloop adhesions, right lower quadrant PLAN: -Continue full liquid diet. Patient to receive two more doses of Kefzol and then may be discharged home from a surgical standpoint per Dr. Mercedes. Patient instructed to take Tylenol PRN at home for pain. He is to follow up outpatient with Dr. Mercedes Nurse practitioner note has been reviewed by physician. Signing provider agrees with the documented findings, assessment, and plan of care. Objective - Vital Signs Vital signs: Vital Signs Temp 99 F 02/19/20 04:44 Pulse 88 02/19/20 04:44 Resp 18 02/19/20 04:44 BP 131/66 02/19/20 04:44 Pulse Ox 92 L 02/19/20 04:44 Intake & Output 02/18/20 02/19/20 02/19/20 18:59 06:59 18:59 Intake Total 1550 400 Balance 1550 400 Weight 87.09 kg 87.09 kg Intake: IV 1550 Oral 400 Other: Voiding Method Toilet Toilet # Voids 1 2 1 - Labs CBC & Chem 7: 02/19/20 06:51 02/19/20 06:51 Labs: Abnormal Lab Results - Last 24 Hours (Table) 02/18/20 02/18/20 02/18/20 Range/Units 15:08 17:10 20:15 WBC (3.8-10.6) k/uL Neutrophils # (1.3-7.7) k/uL Lymphocytes # (1.0-4.8) k/uL Sodium (137-145) mmol/L Glucose (74-99) mg/dL POC Glucose (mg/dL) 163 H 170 H 158 H (75-99) mg/dL Calcium (8.4-10.2) mg/dL 02/19/20 02/19/20 02/19/20 Range/Units 06:51 06:51 06:58 WBC 16.0 H (3.8-10.6) k/uL Neutrophils # 14.6 H (1.3-7.7) k/uL Lymphocytes # 0.2 L (1.0-4.8) k/uL Sodium 134 L (137-145) mmol/L Glucose 192 H (74-99) mg/dL POC Glucose (mg/dL) 188 H (75-99) mg/dL Calcium 8.3 L (8.4-10.2) mg/dL 02/19/20 Range/Units 11:31 WBC (3.8-10.6) k/uL Neutrophils # (1.3-7.7) k/uL Lymphocytes # (1.0-4.8) k/uL Sodium (137-145) mmol/L Glucose (74-99) mg/dL POC Glucose (mg/dL) 215 H (75-99) mg/dL Calcium (8.4-10.2) mg/dL <Mago,Janine N - Last Filed: 02/20/20 20:18> Subjective Patient seen and evaluated with nurse practitioner. Patient reports minimal improvement of right lower quadrant abdominal pain. He is tolerating diet. May discharge home once medically cleared Objective - Vital Signs Vital signs: Vital Signs Temp 98.5 F 02/20/20 11:22 Pulse 78 02/20/20 11:22 Resp 18 02/20/20 11:22 BP 175/91 02/20/20 11:22 Pulse Ox 95 02/20/20 11:22 Intake & Output 02/20/20 02/20/20 02/21/20 06:59 18:59 06:59 Other: Voiding Method Toilet Toilet # Voids 2 - Labs CBC & Chem 7: 02/20/20 05:59 02/20/20 05:59 Labs: Abnormal Lab Results - Last 24 Hours (Table) 02/19/20 02/20/20 02/20/20 Range/Units 20:15 05:59 05:59 WBC 11.8 H (3.8-10.6) k/uL Neutrophils # 9.4 H (1.3-7.7) k/uL Lymphocytes # 0.7 L (1.0-4.8) k/uL Eosinophils # 0.8 H (0-0.7) k/uL Chloride 109 H (98-107) mmol/L Carbon Dioxide 21 L (22-30) mmol/L Glucose 148 H (74-99) mg/dL POC Glucose (mg/dL) 185 H (75-99) mg/dL 02/20/20 02/20/20 Range/Units 07:00 11:25 WBC (3.8-10.6) k/uL Neutrophils # (1.3-7.7) k/uL Lymphocytes # (1.0-4.8) k/uL Eosinophils # (0-0.7) k/uL Chloride (98-107) mmol/L Carbon Dioxide (22-30) mmol/L Glucose (74-99) mg/dL POC Glucose (mg/dL) 148 H 231 H (75-99) mg/dL Assessment and Plan (1) Right lower quadrant abdominal pain Status: Acute Code(s): R10.31 - RIGHT LOWER QUADRANT PAIN SNOMED Code(s): 114110056 (2) Peritoneal adhesions Status: Acute Code(s): K66.0 - PERITONEAL ADHESIONS (POSTPROCEDURAL) (POSTINFECTION) SNOMED Code(s): 19789724 (3) SETTLEMENT WORKER (ventriculoperitoneal) shunt status Status: Acute Code(s): Z98.2 - PRESENCE OF CEREBROSPINAL FLUID DRAINAGE DEVICE SNOMED Code(s): 628468020 (4) Suicidal ideation Status: Acute Code(s): R45.851 - SUICIDAL IDEATIONS SNOMED Code(s): 9331268 (5) Insulin dependent diabetes mellitus Status: Acute Code(s): E11.9 - TYPE 2 DIABETES MELLITUS WITHOUT COMPLICATIONS; Z79.4 - CUSTODIAL (CURRENT) USE OF INSULIN SNOMED Code(s): 14922476 (6) Leukocytosis Status: Acute Code(s): D72.829 - ELEVATED WHITE BLOOD CELL COUNT, UNSPECIFIED SNOMED Code(s): 134838078
--- NOTE | 2020-02-19 13:25 | P.PN ---
Progress Note - Text Progress Note Date: 02/19/20 Interval History: Patient was seen for psychiatric follow-up today for depression and anxiety. Patient was seen at the bedside this morning with his and sitter sitting beside him. Patient's nurse claims the patient has been taking his medications and has not been endorsing any suicidal thoughts and has slept well throughout the night. Patient appeared to be calmer and his affect and claims that he is doing "better today" and states that his pain is improved significantly after the surgery. He spoke about the abdominal adhesions in the process of the surgery and claims that he feels happier and the pain levels dropped to a "3 out of 10". He states that he is not feeling suicidal at this time and claims that "I have so much to live for". And spoke about his supportive and family. He states that he is still struggling to regain strength in his right arm to help with more tasks around the house. He states that he was able to sleep well last night approximately 6-7 hours. He denied any side effects on the medications and claims that he is taking them every day. He denies any anxiety at this time. At this time patient denies any suicidal or homical ideations, intent or plan. Patient denies any auditory, visual hallucinations and denies any paranoia or delusions. Mental Status Exam: General Appearance: Patient appears to be stated age is alert, pleasant, and cooperative. Patient appears to have fair hygiene and grooming wearing hospital gown with fair eye contact. Behavior: Patient is calmly lying in bed without any agitated behavior. Cooperative today. Speech: Patient's speech is fluent and nonpressured. Mood/Affect: Patient reports their mood is "better", affect is congruentand and appears to be brighter. Suicidality/Homicidality: Patient denies having any suicidal or homicidal ideation intent or plan. Perceptions: Patient denies any visual hallucinations and denies any auditory hallucinations Though content/process: There is no evidence of any delusional thought content and thought process is linear and goal-directed. mOre future oriented and positive. Memory and concentration: AOX3, grossly intact for the purposes of this session. Judgment and insight: fair, improved Assessment major depressive disorder, without psychotic features Anxiety disorder unspecified Cannabis use disorder Nicotine dependence Plan: -At this time patient DOES NOT meet criteria for inpatient psychiatric admission. -Would recommend the following medication changes/additions: Continue with Wellbutrin XL 150 mg daily for mood, continue with trazodone 50 mg daily at bedtime for insomnia/mood. Continue with Xanax when necessary as prescribed. -Discontinued 1:1 sitter this morning and patient is jeannine to safety and denying any current suicidal or homicidal thoughts. -Will sign off at this time. -tannery worker to provide patient with outpatient mental health resources for individual therapy and psychiatrist if patient desires to be connected with a mental health provider. Patient will also follow-up with his primary care physician. -Please contact with any questions.
--- NOTE | 2020-02-19 15:18 | P.PN ---
Subjective Progress Note Date: 02/19/20 Principal diagnosis: Patient is 64-year-old male came in with compensative heart diffuse midabdominal pain about 9/10 in severity now 5/10 severity sharp in nature. Patient the has issues with gastroesophageal reflux disease for about any ear and patient is found to have hiatal hernia which is contributing that and patient is supposed to get Nissin's fundoplication supposed to have evaluation by general surgery. As patient's pain is uncontrollable that he even complained that he wants to commit suicide to the ER physician because of which patient has one-on-one sitter and patient does have depression because of which psychiatric was consulted. Patient denied any fever chills patient the lipase is within normal limits rest of the labs are within normal limits except for elevated white blood cell count and mildly elevated bilirubin of 1.7. 02/18/2020 Patient is seen and evaluated in follow-up today awaiting to undergo surgery for lysis of adhesions with Dr. Tamayo today. Patient continues to have abdominal discomfort and has been nothing by mouth this morning for the procedure. Patient is also having some nausea and Zofran ordered. Psychiatry also following the patient as patient continues to be depressed and made comments of suicidal ideations. Per psychiatry will make antidepressant medication recommendations to initiate. Patient is very tearful and is also having personal issues at home that he is trying to manage. Patient denies any chest pain, shortness of breath, or palpitations. Patient is afebrile. Patient has intermittent nausea with no reports of vomiting noted. Will continue to monitor closely. 02/19/2020 Patient is seen and evaluated this morning status post lysis of adhesions and is being closely monitored. Patient also was being followed and evaluated by psychiatry for suicidal statements and ideations. Patient was started on an antidepressant and anti-anxiety medications and tolerating well thus far. Patient denies any suicidal thoughts of wanting to harm self or others. Suicide sitter has been discontinued. Patient is currently on clear liquids and tolerating no reports of nausea or vomiting noted. Patient will advance to full liquids today. Surgery is following closely. Currently no reports of chest pain, shortness of breath, or palpitations. Patient is afebrile. Blood sugars have been slightly elevated and will continue with long-acting along with sliding scale and coverage with meals. Will continue to closely monitor. Objective - Vital Signs Vital signs: Vital Signs Temp 98.7 F 02/19/20 12:54 Pulse 83 02/19/20 12:54 Resp 19 02/19/20 12:54 BP 133/76 02/19/20 12:54 Pulse Ox 96 02/19/20 12:54 Intake & Output 02/18/20 02/19/20 02/19/20 18:59 06:59 18:59 Intake Total 1550 400 Balance 1550 400 Weight 87.09 kg 87.09 kg Intake: IV 1550 Oral 400 Other: Voiding Method Toilet Toilet # Voids 1 2 1 - Exam GENERAL: The patient is alert and oriented x3. Well developed, well nourished. Temp is 98.7F, pulse is 83, respirations are 19, blood pressure is 133/76, oxygen saturation is 96% on room air. HEENT: Pupils are round and equally reacting to light. EOMI. No scleral icterus. No conjunctival pallor. Normocephalic, atraumatic. No pharyngeal erythema. No thyromegaly. CARDIOVASCULAR: S1 and S2 present. No murmurs, rubs, or gallops. PULMONARY: Chest is clear to auscultation, no wheezing or crackles. ABDOMEN: Soft, nontender, nondistended, normoactive bowel sounds. No palpable organomegaly. MUSCULOSKELETAL: No joint swelling or deformity. EXTREMITIES: No cyanosis, clubbing, or pedal edema. NEUROLOGICAL: Gross neurological examination did not reveal any focal deficits. SKIN: No rashes. - Labs CBC & Chem 7: 02/19/20 06:51 02/19/20 06:51 Labs: Abnormal Lab Results - Last 24 Hours (Table) 02/18/20 02/18/20 02/19/20 Range/Units 17:10 20:15 06:51 WBC 16.0 H (3.8-10.6) k/uL Neutrophils # 14.6 H (1.3-7.7) k/uL Lymphocytes # 0.2 L (1.0-4.8) k/uL Sodium (137-145) mmol/L Glucose (74-99) mg/dL POC Glucose (mg/dL) 170 H 158 H (75-99) mg/dL Calcium (8.4-10.2) mg/dL 07/03/20 07/03/20 07/03/20 Range/Units 06:51 06:58 11:31 WBC (3.8-10.6) k/uL Neutrophils # (1.3-7.7) k/uL Lymphocytes # (1.0-4.8) k/uL Sodium 134 L (137-145) mmol/L Glucose 192 H (74-99) mg/dL POC Glucose (mg/dL) 188 H 215 H (75-99) mg/dL Calcium 8.3 L (8.4-10.2) mg/dL Assessment and Plan Assessment: -Abdominal pain probably due to gastritis and hiatal hernia -Status post lysis of adhesions postop day #1 -Major depression -Type II diabetes mellitus -Gastroesophageal reflux disease -Hyperlipidemia -hypertension -possible chronic kidney disease stage II probably secondary to diabetic nephropathy -DVT prophylaxis with Lovenox Plan: Continue current medications, management, and symptomatic treatment. Patient underwent lysis of adhesions yesterday. Surgery following closely. Patient's diet has been tolerated and be advanced to full liquids. Blood sugars continue to be slightly elevated and will continue with long-acting along with sliding scale and monitor closely. Patient was seen and evaluated by psychiatry recommended outpatient therapy along with antidepressants and anti-anxiety medications. Further recommendations to follow. Possible discharge in 24 hours.
[2020-02-19 17:40] LABS: Glucose,Whole Blood 87 mg/dL (75-99)
[2020-02-19 20:17] LABS: Glucose,Whole Blood 185 mg/dL (75-99)
[2020-02-19] MEDS: ATORVASTATIN 20 MG TAB PO SCH (20:39)
[2020-02-19] MEDS: traZODone HCL 50 MG TAB PO SCH (20:39)
[2020-02-19] MEDS: MORPHINE SULFATE 2 MG/ML SYRINGE IVP PRN (20:40)
[2020-02-19 20:47] VITALS: RESP 18
[2020-02-20] MEDS: ACETAMINOPHEN TAB 325 MG TAB PO SCH ×3 (00:44→11:57)
[2020-02-20 06:30] LABS: Basophils # (A) 0.1 k/uL (0-0.2); Basophils % (A) 0 %; Eosinophils # (A) 0.8 k/uL (0-0.7); Eosinophils % (A) 6 %; HCT 48.3 % (39.0-53.0); HGB 15.5 gm/dL (13.0-17.5); Lymphocytes # (A) 0.7 k/uL (1.0-4.8); Lymphocytes % (A) 6 %; MCH 30.7 pg (25.0-35.0); MCHC 32.1 g/dL (31.0-37.0); MCV 95.7 fL (80.0-100.0); Mean Platelet Volume 7.3; Monocytes # (A) 0.7 k/uL (0-1.0); Monocytes % (A) 6 %; Neutrophils # (A) 9.4 k/uL (1.3-7.7); Neutrophils % (A) 80 %; Platelet Count 183 k/uL (150-450); RBC 5.05 m/uL (4.30-5.90); RDW 13.5 % (11.5-15.5); WBC 11.8 k/uL (3.8-10.6)
[2020-02-20 06:45] LABS: African American GFR (CKD) >90 (>60 ml/min/1.73 sqM); Anion Gap 8 mmol/L; Blood Urea Nitrogen 13 mg/dL (9-20); Calcium 8.4 mg/dL (8.4-10.2); Carbon Dioxide 21 mmol/L (22-30); Chloride 109 mmol/L (98-107); Glucose 148 mg/dL (74-99); Non-African American GFR(CKD) 79 (>60 ml/min/1.73 sqM); Potassium 3.9 mmol/L (3.5-5.1); Sodium 138 mmol/L (137-145)
[2020-02-20 07:01] LABS: Glucose,Whole Blood 148 mg/dL (75-99)
[2020-02-20] MEDS: PANTOPRAZOLE 40 MG/10 ML VIAL IVP SCH (09:38)
[2020-02-20] MEDS: NICOTINE 21MG/24HR PATCH TRANSDERM SCH ×2 (09:38→09:53)
[2020-02-20] MEDS: lisinopriL 20 MG TAB PO SCH (09:38)
[2020-02-20] MEDS: SUCRALFATE 1 GM TAB PO SCH (09:38)
[2020-02-20] MEDS: buPROPion XL 150 MG TAB.ER.24H PO SCH (09:39)
[2020-02-20] MEDS: atenoloL 25 MG TAB PO SCH (09:39)
[2020-02-20] MEDS: INSULIN ASPART (NovoLOG) 100 UNIT/ML VIAL SQ SCH (09:45)
[2020-02-20 11:26] LABS: Glucose,Whole Blood 231 mg/dL (75-99)
[2020-02-20 11:40] VITALS: BP 175/91; PULSE 78; TEMP 98.5
[2020-02-20] MEDS: INSULIN DETEMIR (LEVEMIR) 100 UNIT/ML SYR SQ SCH (11:56)
--- NOTE | 2020-02-20 13:18 | P.PN ---
Subjective Progress Note Date: 02/20/20 CHIEF COMPLAINT: Abdominal pain HISTORY OF PRESENT ILLNESS: The patient is a 64-year-old male status post lysis of adhesions for chronic right lower quadrant abdominal pain now improved. He is feeling well. He is tolerating diet. ROS: No reports of nausea and vomiting. No fevers or chills. No new chest pain. No productive sputum PHYSICAL EXAM: VITAL SIGNS: Reviewed CONSTITUTIONAL: Well developed and in no acute distress. EYES: Conjuctivae without sclera icterus. Extraocular movements grossly intact. HEAD, EARS, NOSE, THROAT: Moist buccal mucosa. Head is atraumatic, normocephalic. Hears conversational speech. No nasal drainage. NECK: Supple. No thyroidomegaly. RESPIRATORY: Non-labored respirations and equal bilateral excursions. CARDIOVASCULAR: Palpable 2+ radial pulses. Regular rate. Regular rhythm. ABDOMEN: Incisions clean dry and intact. Soft. No peritonitis. MUSCULOSKELETAL: No clubbing. No cyanosis. SKIN: Good skin turgor. Well perfused. NEUROLOGIC: Cranial nerves II through XII grossly intact. No focal or lateralizing signs. PSYCH: Appropriate affect. Alert and oriented to person, place and time. CLINICAL LABS: White blood cell count improved from 16.8-11.6 ASSESSMENT: 1. Right lower quadrant abdominal pain improved PLAN: 1. He is clear from a surgical standpoint for discharge with follow-up in the office 1 week Objective - Vital Signs Vital signs: Vital Signs Temp 98.5 F 02/20/20 11:22 Pulse 78 02/20/20 11:22 Resp 18 02/20/20 11:22 BP 175/91 02/20/20 11:22 Pulse Ox 95 02/20/20 11:22 Intake & Output 02/19/20 02/20/20 02/20/20 18:59 06:59 18:59 Weight 87.09 kg Other: Voiding Method Toilet Toilet # Voids 1 2 - Labs CBC & Chem 7: 02/20/20 05:59 02/20/20 05:59 Labs: Abnormal Lab Results - Last 24 Hours (Table) 02/19/20 02/20/20 02/20/20 Range/Units 20:15 05:59 05:59 WBC 11.8 H (3.8-10.6) k/uL Neutrophils # 9.4 H (1.3-7.7) k/uL Lymphocytes # 0.7 L (1.0-4.8) k/uL Eosinophils # 0.8 H (0-0.7) k/uL Chloride 109 H (98-107) mmol/L Carbon Dioxide 21 L (22-30) mmol/L Glucose 148 H (74-99) mg/dL POC Glucose (mg/dL) 185 H (75-99) mg/dL 02/20/20 02/20/20 Range/Units 07:00 11:25 WBC (3.8-10.6) k/uL Neutrophils # (1.3-7.7) k/uL Lymphocytes # (1.0-4.8) k/uL Eosinophils # (0-0.7) k/uL Chloride (98-107) mmol/L Carbon Dioxide (22-30) mmol/L Glucose (74-99) mg/dL POC Glucose (mg/dL) 148 H 231 H (75-99) mg/dL Assessment and Plan (1) Abdominal pain Status: Acute Code(s): R10.9 - UNSPECIFIED ABDOMINAL PAIN SNOMED Code(s): 06844430 (2) Peritoneal adhesions Status: Acute Code(s): K66.0 - PERITONEAL ADHESIONS (POSTPROCEDURAL) (POSTINFECTION) SNOMED Code(s): 82688238 (3) Right lower quadrant abdominal pain Status: Acute Code(s): R10.31 - RIGHT LOWER QUADRANT PAIN SNOMED Code(s): 217449477 (4) Suicidal ideation Status: Acute Code(s): R45.851 - SUICIDAL IDEATIONS SNOMED Code(s): 8570859
[2020-02-20] MEDS ORDERED: PANTOPRAZOLE 40 MG TABLET PO SCH (21:00)
--- NOTE | 2020-02-21 09:46 | DS ---
DISCHARGE SUMMARY DATE OF SERVICE: 02/20/2020. FINAL DIAGNOSES: 1. Abdominal pain possibly gastritis and hiatal hernia. 2. Status post lysis of adhesions. 3. Major depression. 4. Diabetes mellitus type 2. 5. History of gastroesophageal reflux disease. 6. Hyperlipidemia. 7. Hypertension. 8. Possible chronic kidney stage 2. 9. Deep vein thrombosis prophylaxis. DISCHARGE DISPOSITION: The patient will be discharged in stable condition with guarded prognosis. Discharge cleared by Surgery. HISTORY OF PRESENT ILLNESS: This 64-year-old gentleman was admitted with abdominal pain with gastritis, hiatal hernia. Underwent lysis of adhesions, and the patient improved significantly. Surgery saw the patient. On exam, vitals are stable. Cardio: S1, S2. Abdomen soft. Nervous system: No focal deficits. The patient being discharged in stable condition with guarded prognosis after clearance from surgery. DISCHARGE ADVICE AND MEDICATIONS: 1. Diet will be as per surgery. 2. Activity limited until followup. 3. Follow up with Dr. Dru Colby in 1-2 days. 4. Follow up with surgery as recommended. 5. Atenolol 25 mg daily. 6. Carafate 1 g a.c. t.i.d. 7. Ecotrin 81 mg daily. 8. Levemir 40 units subcu daily. 9. Accu-Cheks a.c. and q.h.s. results to Dr. Colby. 10.NovoLog FlexPen 20 units a.c., b.i.d. and 10 units a.c. lunch. 11.Protonix 40 mg daily. 12.Xanax 0.5 b.i.d. p.r.n. 13.Zestril 20 mg b.i.d. 14.Zocor 40 mg q.h.s. 15.Desyrel 50 mg q.h.s. 16.Tylenol p.r.n. 17.Wellbutrin XL 150 mg p.o. daily. MMODL / IJN: [id number] /
== END 2020-02-20 13:30 | disposition home or self-care (01) | DRG 336 ==
LOC: EC 04:30 → 5NMEDONC 04:42
PROVIDERS: ADMIT Hospitalist; ATTEND Hospitalist
PROC: 8E0W4CZ Robotic Assisted Procedure of Trunk Region, Percutaneous Endoscopic Approach (ICD-10-PCS; principal; 2020-02-18 07:30)
PROC: 0DNW4ZZ Release Peritoneum, Percutaneous Endoscopic Approach (ICD-10-PCS; principal; 2020-02-18 07:30)
DX: K66.0 Peritoneal adhesions (postprocedural) (postinfection) (principal); G91.9 Hydrocephalus, unspecified; R45.851 Suicidal ideations; T85.9XXA Unspecified complication of internal prosthetic device, implant and graft, initial encounter; E11.40 Type 2 diabetes mellitus with diabetic neuropathy, unspecified; E11.22 Type 2 diabetes mellitus with diabetic chronic kidney disease; I11.9 Hypertensive heart disease without heart failure; N18.3 Chronic kidney disease, stage 3 (moderate); E78.5 Hyperlipidemia, unspecified; D72.829 Elevated white blood cell count, unspecified; F32.9 Major depressive disorder, single episode, unspecified; F41.1 Generalized anxiety disorder; G89.4 Chronic pain syndrome; Z11.59 Encounter for screening for other viral diseases; K21.9 Gastro-esophageal reflux disease without esophagitis; K29.70 Gastritis, unspecified, without bleeding; K44.9 Diaphragmatic hernia without obstruction or gangrene; K58.9 Irritable bowel syndrome, unspecified; M19.90 Unspecified osteoarthritis, unspecified site; H91.93 Unspecified hearing loss, bilateral; K57.90 Diverticulosis of intestine, part unspecified, without perforation or abscess without bleeding; F17.210 Nicotine dependence, cigarettes, uncomplicated; G43.909 Migraine, unspecified, not intractable, without status migrainosus; I12.9 Hypertensive chronic kidney disease with stage 1 through stage 4 chronic kidney disease, or unspecified chronic kidney disease; Z79.4 Long term (current) use of insulin; Z79.82 Long term (current) use of aspirin; Z79.899 Other long term (current) drug therapy; Z98.2 Presence of cerebrospinal fluid drainage device; Z98.1 Arthrodesis status; Z90.49 Acquired absence of other specified parts of digestive tract; Z86.73 Personal history of transient ischemic attack (TIA), and cerebral infarction without residual deficits; Z88.8 Allergy status to other drugs, medicaments and biological substances; Z87.442 Personal history of urinary calculi; Z89.112 Acquired absence of left hand; Z80.51 Family history of malignant neoplasm of kidney; Z80.0 Family history of malignant neoplasm of digestive organs; Y83.8 Other surgical procedures as the cause of abnormal reaction of the patient, or of later complication, without mention of misadventure at the time of the procedure
CPT/HCPCS: 36415; 71046; 74018; 74177; 80048; 80053; 81001; 82150; 83605; 83690; 84484; 85025; 85027; 85610; 85730; 87040; 93005; 96361; 96374; 96375; 96376; 99284; 99285

== ENCOUNTER 2020-02-25 04:01 | Emergency (ER) | payer BC, MEDICARE ==
--- NOTE | 2020-02-25 04:14 | ED ---
Abdominal Pain HPI - General Stated Complaint: constipation Time Seen by Provider: 02/25/20 04:09 Source: patient Mode of arrival: ambulatory - History of Present Illness Initial Comments: Daniel is a 64-year-old male with extensive medical history most significant for recent recurrent admissions for abdominal pain during which she had a laparoscopic surgery for lysis of adhesions. Patient reports his abdominal pain improved significantly postoperatively was discharged home. Patient reports that since February 16 he has not had a bowel movement. He does report he still passing gas. He's been taking MiraLAX, Ex-Lax daily. He saw his primary care physician as well as his surgeon yesterday who advised him he could take magnesium citrate. He reports that around 5 PM yesterday he drank a bottle of magnesium citrate he still has not had a bowel movement which prompted him to come the ER for further evaluation. She reports mild abdominal pain but nothing compared to preoperative pain. - Related Data Home Medications Medication Instructions Recorded Confirmed Lisinopril [Zestril] 20 mg PO BID 11/24/15 02/17/20 Simvastatin [Zocor] 40 mg PO AC-SUPPER 11/24/15 02/17/20 Insulin Aspart [NovoLOG Flexpen] 10 units SQ AC-LUNCH 12/15/18 02/17/20 Insulin Aspart [NovoLOG Flexpen] 20 units SQ AC-BID@0900,1800 12/15/18 02/17/20 Insulin Detemir (Levemir) [Levemir] 45 unit SQ DAILY 12/15/18 02/17/20 Pantoprazole [Protonix] 40 mg PO DAILY 05/09/19 02/17/20 ALPRAZolam [Xanax] 0.5 mg PO BID PRN 11/27/19 02/17/20 Aspirin EC [Ecotrin Low Dose] 81 mg PO DAILY 02/15/20 02/17/20 Sucralfate [Carafate] 1 gm PO AC-TID 02/15/20 02/17/20 Atenolol 25 mg PO DAILY 02/17/20 02/17/20 Previous Rx's Medication Instructions Recorded Acetaminophen Tab [Tylenol Tab] 650 mg PO Q4H PRN #30 tablet 02/19/20 buPROPion XL [Wellbutrin XL] 150 mg PO DAILY #30 tab.er.24h 02/20/20 traZODone HCL [Desyrel] 50 mg PO HS #30 tab 02/20/20 Allergies Allergy/AdvReac Type Severity Reaction Status Date / Time blue dye Allergy Severe Rash/Hives Verified 02/25/20 04:11 codeine Allergy Itching Verified 02/25/20 04:11 naproxen sodium [From Aleve] Allergy Rash/Hives Verified 02/25/20 04:11 ondansetron [From Zofran] Allergy Rash/Hives Verified 02/25/20 04:11 gabapentin AdvReac Abdominal Verified 02/25/20 04:11 Pain naloxegol [From Movantik] AdvReac Nausea & Verified 02/25/20 04:11 Vomiting Review of Systems ROS Statement: Those systems with pertinent positive or pertinent negative responses have been documented in the HPI. ROS Other: All systems not noted in ROS Statement are negative. Past Medical History Past Medical History: Chest Pain / Angina, CVA/TIA, Diabetes Mellitus, GERD/Reflux, Hearing Disorder / Deafness, Hyperlipidemia, Hypertension, Renal Disease Additional Past Medical History / Comment(s): IDDM type II, neuropathy bilateral feet, CVA with no residual, TIA, hydrocephalus with ERECTING ENGINEER shunt, IBS, diverticulitis/bowel resection, hiatal hernia, DJD, occasional cervical pain, migraines, skull/head injury at age 19 with lengthy hospitalization, nephrolithiasis-passed stone on his own, [place] bilaterally. History of Any Multi-Drug Resistant Organisms: None Reported Past Surgical History: Back Surgery, Bowel Resection, Orthopedic Surgery Additional Past Surgical History / Comment(s): 2020 R elbow tendon surgery, L knee arthroscopy, L hand amp d/t industrial accident, cervical fusion, bowel resection d/t diverticulitis, EGD, colonoscopy, hemorrhoidectomy, Past Anesthesia/Blood Transfusion Reactions: No Reported Reaction Past Psychological History: Anxiety, Depression Smoking Status: Current every day smoker Past Alcohol Use History: None Reported Past Drug Use History: Marijuana - Past Family History Mother Family Medical History: Cancer Additional Family Medical History / Comment(s): kidney Father Family Medical History: Cancer Additional Family Medical History / Comment(s): pancreatic General Exam - General Exam Comments Initial Comments: Physical Exam GENERAL: Patient is well-developed and well-nourished. Patient is nontoxic and well-hydrated and is in no distress. HENT: Normocephalic, Atraumatic. EYES: PERRL, EOMI PULMONARY: Unlabored respirations. CARDIOVASCULAR: RRR Warm and well perfused extremities ABDOMEN: Soft, minimal tenderness SKIN: Well-healing laparoscopic surgical incisions : Deferred NEUROLOGIC: Alert and oriented Normal speech Normal gait MUSCULOSKELETAL: Moving all extremities with no apparent injury Left mid forearm amputation PSYCHIATRIC: No SI/HI Course Vital Signs 02/25/20 02/25/20 04:09 06:42 Temperature 98.4 F Pulse Rate 76 80 Respiratory 17 18 Rate Blood Pressure 172/95 188/94 O2 Sat by Pulse 97 97 Oximetry Medical Decision Making - Medical Decision Making Patient was seen and evaluated, history is obtained from patient except history and physical exam are relatively unremarkable however patient has had no bowel movements for 9 days duration. He is still passing gas. He is not vomiting he's tolerating oral intake he's been able take his home medications. He's not on home narcotics. Labs and x-rays were ordered labs resulted with mild leukocytosis X-ray was read as a possible small bowel insertion however in the setting of to passing gas not vomiting and tolerating oral intake I suspect this is more of an ileus, these results were discussed with the surgeon front office clerk Dr. Tee who e valuated the patient yesterday in office. She agrees this is likely more of an ileus and request the patient receive an enema She received a soapsuds enema, he reports that he had a bowel movement a fterwards, at this time patient comfortable with plan for discharge home continued MiraLAX states he'll take mag citrate if he doesn't have a large bowel movement next 2 days. Will follow closely with Dr. Tee. Close return parameters were discussed patient discharged home in stable condition. - Lab Data Result diagrams: 02/25/20 04:27 02/25/20 04:27 Lab Results 02/25/20 02/25/20 02/25/20 Range/Units 04:27 04:27 04:27 WBC 12.9 H (3.8-10.6) k/uL RBC 5.54 (4.30-5.90) m/uL Hgb 16.7 (13.0-17.5) gm/dL Hct 52.1 (39.0-53.0) % MCV 94.0 (80.0-100.0) fL MCH 30.1 (25.0-35.0) pg MCHC 32.0 (31.0-37.0) g/dL RDW 13.4 (11.5-15.5) % Plt Count 299 (150-450) k/uL Neutrophils % 72 % Lymphocytes % 13 % Monocytes % 5 % Eosinophils % 6 % Basophils % 1 % Neutrophils # 9.4 H (1.3-7.7) k/uL Lymphocytes # 1.7 (1.0-4.8) k/uL Monocytes # 0.7 (0-1.0) k/uL Eosinophils # 0.8 H (0-0.7) k/uL Basophils # 0.2 (0-0.2) k/uL Sodium 137 (137-145) mmol/L Potassium 4.4 (3.5-5.1) mmol/L Chloride 103 (98-107) mmol/L Carbon Dioxide 25 (22-30) mmol/L Anion Gap 9 mmol/L BUN 17 (9-20) mg/dL Creatinine 1.01 (0.66-1.25) mg/dL Est GFR (CKD-EPI)AfAm >90 (>60 ml/min/1.73 sqM) Est GFR (CKD-EPI)NonAf 78 (>60 ml/min/1.73 sqM) Glucose 238 H (74-99) mg/dL Plasma Lactic Acid Jose Luis 1.2 (0.7-2.0) mmol/L Calcium 9.1 (8.4-10.2) mg/dL Total Bilirubin 0.7 (0.2-1.3) mg/dL AST 22 (17-59) U/L ALT 25 (4-49) U/L Alkaline Phosphatase 120 (38-126) U/L Total Protein 6.5 (6.3-8.2) g/dL Albumin 4.1 (3.5-5.0) g/dL Lipase 64 (23-300) U/L Disposition Clinical Impression: Postoperative ileus Disposition: HOME SELF-CARE Condition: Stable Instructions (If sedation given, give patient instructions): Ileus (ED) Is patient prescribed a controlled substance at d/c from ED?: No Referrals: Dru Colby MD [Primary Care Provider] - 1-2 days
[2020-02-25] MEDS ORDERED: HYDROmorphone 1 MG/ML 1 ML SYRINGE IVP STA (04:34)
[2020-02-25 04:35] LABS: Basophils # (A) 0.2 k/uL (0-0.2); Basophils % (A) 1 %; Eosinophils # (A) 0.8 k/uL (0-0.7); Eosinophils % (A) 6 %; HCT 52.1 % (39.0-53.0); HGB 16.7 gm/dL (13.0-17.5); Lymphocytes # (A) 1.7 k/uL (1.0-4.8); Lymphocytes % (A) 13 %; MCH 30.1 pg (25.0-35.0); Mean Platelet Volume 7.2; Monocytes # (A) 0.7 k/uL (0-1.0); Monocytes % (A) 5 %; Neutrophils # (A) 9.4 k/uL (1.3-7.7); Neutrophils % (A) 72 %; Platelet Count 299 k/uL (150-450); RBC 5.54 m/uL (4.30-5.90); RDW 13.4 % (11.5-15.5); WBC 12.9 k/uL (3.8-10.6)
[2020-02-25 04:46] LABS: ALT 25 U/L (4-49); AST 22 U/L (17-59); African American GFR (CKD) >90 (>60 ml/min/1.73 sqM); Albumin 4.1 g/dL (3.5-5.0); Alkaline Phosphatase 120 U/L (38-126); Anion Gap 9 mmol/L; Blood Urea Nitrogen 17 mg/dL (9-20); Calcium 9.1 mg/dL (8.4-10.2); Carbon Dioxide 25 mmol/L (22-30); Chloride 103 mmol/L (98-107); Glucose 238 mg/dL (74-99); Non-African American GFR(CKD) 78 (>60 ml/min/1.73 sqM); Potassium 4.4 mmol/L (3.5-5.1); Sodium 137 mmol/L (137-145); Total Bilirubin 0.7 mg/dL (0.2-1.3); Total Protein 6.5 g/dL (6.3-8.2)
--- NOTE | 2020-02-25 04:54 | XR ---
EXAMINATION TYPE: XR abdomen 2V DATE OF EXAM: 02/25/2020 COMPARISON: 11/26/2019 HISTORY: Abdominal pain TECHNIQUE: Supine and upright views FINDINGS: There are some intestinal fluid levels in the right side of the abdomen. Lung bases are heather ar. There are no pathologic calcifications. There is no evidence of free air under the diaphragm. The re are no pathologic calcifications over the kidneys. IMPRESSION: Dilated loops of bowel with multiple fluid levels is suggestive of mechanical small bowel distal obstruction. This is a change compared to old exam.
[2020-02-26 09:50] VITALS: BP 188/94; PULSE 80; RESP 18; TEMP 98.4
== END 2020-02-25 07:25 | disposition home or self-care (01) ==
LOC: EC 04:01
DX: K91.89 Other postprocedural complications and disorders of digestive system (principal); K56.7 Ileus, unspecified; D72.829 Elevated white blood cell count, unspecified; E11.40 Type 2 diabetes mellitus with diabetic neuropathy, unspecified; K21.9 Gastro-esophageal reflux disease without esophagitis; E78.5 Hyperlipidemia, unspecified; I10 Essential (primary) hypertension; F17.200 Nicotine dependence, unspecified, uncomplicated; Z86.73 Personal history of transient ischemic attack (TIA), and cerebral infarction without residual deficits; Z87.19 Personal history of other diseases of the digestive system; Z98.890 Other specified postprocedural states; Z79.4 Long term (current) use of insulin; Z79.82 Long term (current) use of aspirin; Z79.899 Other long term (current) drug therapy; Z91.048 Other nonmedicinal substance allergy status; Z88.5 Allergy status to narcotic agent; Z88.6 Allergy status to analgesic agent; Z88.8 Allergy status to other drugs, medicaments and biological substances
CPT/HCPCS: 36415; 74019; 80053; 83605; 83690; 85025; 96374; 99283

== ENCOUNTER 2020-02-26 02:56 | Inpatient (IN) | payer BC, MEDICARE ==
--- NOTE | 2020-02-26 02:59 | ED ---
Abdominal Pain HPI - General Stated Complaint: Abdominal pain Time Seen by Provider: 02/26/20 02:57 - History of Present Illness Initial Comments: Daniel is a 64-year-old male with extensive history, with past few months patient has been suffering from chronic abdominal pain. Earlier this month he underwent laparoscopy with extensive lysis of adhesions. Patient reports his pain was significantly improved since then however he's not had a bowel movement since February 16. He was seen and evaluated in our emergency department earlier today. He was passing gas at that time. X-ray was concerning for small bowel exertion however when this was discussed with the surgeon with a higher suspicion for ileus. Patient received a soapsuds enema was able to have a small bowel movement was slightly more comfortable and decided he would go home continue his MiraLAX and take magnesium citrate. She reports that after going home he had 3 more bowel movements however he has persistent and worsening abdominal pain. This prompted them to return to the ER for evaluation. - Related Data Home Medications Medication Instructions Recorded Confirmed Lisinopril [Zestril] 20 mg PO BID 11/24/15 02/17/20 Simvastatin [Zocor] 40 mg PO AC-SUPPER 11/24/15 02/17/20 Insulin Aspart [NovoLOG Flexpen] 10 units SQ AC-LUNCH 12/15/18 02/17/20 Insulin Aspart [NovoLOG Flexpen] 20 units SQ AC-BID@0900,1800 12/15/18 02/17/20 Insulin Detemir (Levemir) [Levemir] 45 unit SQ DAILY 12/15/18 02/17/20 Pantoprazole [Protonix] 40 mg PO DAILY 05/09/19 02/17/20 ALPRAZolam [Xanax] 0.5 mg PO BID PRN 11/27/19 02/17/20 Aspirin EC [Ecotrin Low Dose] 81 mg PO DAILY 02/15/20 02/17/20 Sucralfate [Carafate] 1 gm PO AC-TID 02/15/20 02/17/20 Atenolol 25 mg PO DAILY 02/17/20 02/17/20 Previous Rx's Medication Instructions Recorded Acetaminophen Tab [Tylenol Tab] 650 mg PO Q4H PRN #30 tablet 02/19/20 buPROPion XL [Wellbutrin XL] 150 mg PO DAILY #30 tab.er.24h 02/20/20 traZODone HCL [Desyrel] 50 mg PO HS #30 tab 02/20/20 Allergies Allergy/AdvReac Type Severity Reaction Status Date / Time blue dye Allergy Severe Rash/Hives Verified 02/26/20 03:07 codeine Allergy Itching Verified 02/26/20 03:07 naproxen sodium [From Aleve] Allergy Rash/Hives Verified 02/26/20 03:07 ondansetron [From Zofran] Allergy Rash/Hives Verified 02/26/20 03:07 gabapentin AdvReac Abdominal Verified 02/26/20 03:07 Pain naloxegol [From Movantik] AdvReac Nausea & Verified 02/26/20 03:07 Vomiting Review of Systems ROS Statement: Those systems with pertinent positive or pertinent negative responses have been documented in the HPI. ROS Other: All systems not noted in ROS Statement are negative. Past Medical History Past Medical History: Chest Pain / Angina, CVA/TIA, Diabetes Mellitus, GERD/Reflux, Hearing Disorder / Deafness, Hyperlipidemia, Hypertension, Renal Disease Additional Past Medical History / Comment(s): IDDM type II, neuropathy bilateral feet, CVA with no residual, TIA, hydrocephalus with HUMAN RESOURCES RECEPTIONIST shunt, IBS, di verticulitis/bowel resection, hiatal hernia, DJD, occasional cervical pain, migraines, skull/head injury at age 19 with lengthy hospitalization, nephrolithiasis-passed stone on his own, [place] bilaterally. History of Any Multi-Drug Resistant Organisms: None Reported Past Surgical History: Back Surgery, Bowel Resection, Orthopedic Surgery Additional Past Surgical History / Comment(s): 2020 R elbow tendon surgery, L knee arthroscopy, L hand amp d/t industrial accident, cervical fusion, bowel resection d/t diverticulitis, EGD, colonoscopy, hemorrhoidectomy, Past Anesthesia/Blood Transfusion Reactions: No Reported Reaction Past Psychological History: Anxiety, Depression Smoking Status: Current every day smoker Past Alcohol Use History: None Reported Past Drug Use History: Marijuana - Past Family History Mother Family Medical History: Cancer Additional Family Medical History / Comment(s): kidney Father Family Medical History: Cancer Additional Family Medical History / Comment(s): pancreatic General Exam - General Exam Comments Initial Comments: Physical Exam GENERAL: Patient is well-developed and well-nourished. Appears uncomfortable HENT: Normocephalic, Atraumatic. EYES: PERRL, EOMI PULMONARY: Unlabored respirations. CARDIOVASCULAR: RRR Warm and well perfused extremities ABDOMEN: Well-healing surgical incisions SKIN: No rashes or bruising : Deferred NEUROLOGIC: Alert and oriented Normal speech Normal gait MUSCULOSKELETAL: Moving all extremities with no apparent injury Right mid forearm amputation PSYCHIATRIC: No SI/HI Course Vital Signs 02/26/20 03:07 Temperature 98.8 F Pulse Rate 70 Respiratory 18 Rate Blood Pressure 180/103 O2 Sat by Pulse 97 Oximetry Medical Decision Making - Medical Decision Making Patient was seen and evaluated history is obtained from patient, I was familiar with this patient as I saw him less than 24 hours ago at that time he was diagnosed with a likely ileus he had a bowel movement he was able to go home Patient returns with persistent abdominal pain, given the findings on this morning labs and a computed tomography scan ordered Computed tomography scan again confirms an ileus with no acute findings Patient received Dilaudid with some improvement in his pain is not vomiting We will plan to place the patient admission for intractable abdominal pain with a consult to his surgeon for further evaluation - Lab Data Result diagrams: 02/26/20 03:22 02/26/20 03:22 Lab Results 02/26/20 02/26/20 Range/Units 03:22 03:22 WBC 11.9 H (3.8-10.6) k/uL RBC 5.11 (4.30-5.90) m/uL Hgb 16.2 (13.0-17.5) gm/dL Hct 48.2 (39.0-53.0) % MCV 94.4 (80.0-100.0) fL MCH 31.7 (25.0-35.0) pg MCHC 33.6 (31.0-37.0) g/dL RDW 13.4 (11.5-15.5) % Plt Count 286 (150-450) k/uL Neutrophils % 71 % Lymphocytes % 14 % Monocytes % 6 % Eosinophils % 6 % Basophils % 1 % Neutrophils # 8.5 H (1.3-7.7) k/uL Lymphocytes # 1.7 (1.0-4.8) k/uL Monocytes # 0.7 (0-1.0) k/uL Eosinophils # 0.7 (0-0.7) k/uL Basophils # 0.2 (0-0.2) k/uL Sodium 136 L (137-145) mmol/L Potassium 4.4 (3.5-5.1) mmol/L Chloride 103 (98-107) mmol/L Carbon Dioxide 24 (22-30) mmol/L Anion Gap 9 mmol/L BUN 19 (9-20) mg/dL Creatinine 1.03 (0.66-1.25) mg/dL Est GFR (CKD-EPI)AfAm 88 (>60 ml/min/1.73 sqM) Est GFR (CKD-EPI)NonAf 76 (>60 ml/min/1.73 sqM) Glucose 214 H (74-99) mg/dL Calcium 9.3 (8.4-10.2) mg/dL Total Bilirubin 0.6 (0.2-1.3) mg/dL AST 20 (17-59) U/L ALT 24 (4-49) U/L Alkaline Phosphatase 118 (38-126) U/L Total Protein 6.5 (6.3-8.2) g/dL Albumin 4.0 (3.5-5.0) g/dL Lipase 60 (23-300) U/L Disposition Clinical Impression: Abdominal pain, Postoperative ileus Disposition: ADMITTED IP TO THIS HOSP Condition: Stable Is patient prescribed a controlled substance at d/c from ED?: No Referrals: Dru Colby MD [Primary Care Provider] - 1-2 days
[2020-02-26] MEDS ORDERED: HYDROmorphone 1 MG/ML 1 ML SYRINGE IVP STA (03:23)
[2020-02-26 03:29] LABS: Basophils # (A) 0.2 k/uL (0-0.2); Basophils % (A) 1 %; Eosinophils # (A) 0.7 k/uL (0-0.7); Eosinophils % (A) 6 %; HCT 48.2 % (39.0-53.0); HGB 16.2 gm/dL (13.0-17.5); Lymphocytes # (A) 1.7 k/uL (1.0-4.8); Lymphocytes % (A) 14 %; MCH 31.7 pg (25.0-35.0); MCHC 33.6 g/dL (31.0-37.0); MCV 94.4 fL (80.0-100.0); Monocytes # (A) 0.7 k/uL (0-1.0); Monocytes % (A) 6 %; Neutrophils # (A) 8.5 k/uL (1.3-7.7); Neutrophils % (A) 71 %; Platelet Count 286 k/uL (150-450); RBC 5.11 m/uL (4.30-5.90); RDW 13.4 % (11.5-15.5); WBC 11.9 k/uL (3.8-10.6)
[2020-02-26 03:38] LABS: Calcium 9.3 mg/dL (8.4-10.2); Potassium 4.4 mmol/L (3.5-5.1); Total Bilirubin 0.6 mg/dL (0.2-1.3); Total Protein 6.5 g/dL (6.3-8.2)
--- NOTE | 2020-02-26 04:04 | CT ---
EXAMINATION TYPE: CT abdomen pelvis w con DATE OF EXAM: 02/26/2020 COMPARISON: 02/14/2020 HISTORY: Small Bowel Obstruction, Abd Pin CT DLP: 1138.3 mGycm Automated exposure control for dose reduction was used. CONTRAST: Performed with IV Contrast, patient injected with 100 mL of Isovue 300. Images were obtained from the diaphragm to the floor the pelvis with IV contrast. There is mild subsegmental atelectasis at the lung bases. Heart appears slightly enlarged. There is n o pericardial effusion. There is no pleural effusion. Stomach is intact. Liver spleen pancreas gallbl adder appear normal. Bile ducts are not dilated. There is no adrenal mass. There are right-sided renal cortical cysts. The largest measures 5 cm. Ther e is no hydronephrosis. There is no evidence of a solid renal mass. The delayed images show normal re nal excretion. Abdominal aorta is atheromatous. There is no retroperitoneal adenopathy. Bladder distends smoothly. Prostate measures 4.8 cm. There is no inguinal hernia. There is no free fl uid in the pelvis. There are some distended fluid-filled small bowel loops up to 2.8 cm. Appendix is posterior and medial and appears normal. There is apparent ventriculoperitoneal shunt catheter. Carlota ter tip is in the right mid abdomen. There is no ascites. There is no free air. There is no mesenteri c edema. There are clips at the rectosigmoid junction. There are a few sigmoid diverticula. There is no sign of diverticulitis. Lumbar vertebra have normal spacing and alignment. Posterior elements are intact. Bony pelvis appears intact. IMPRESSION: There are a few small bowel distended fluid-filled loops as above not significantly different than la st exam and consistent with mild ileus. I do not see evidence for mechanical bowel obstruction. Lisa l appendix. There is mild subsegmental atelectasis at the lung bases increased slightly compared to l ast exam.
[2020-02-26] MEDS ORDERED: SODIUM CHLORIDE 0.9% 1,000 ML IV SCH (05:15)
[2020-02-26] MEDS ORDERED: HYDROmorphone 0.5 MG/0.5 ML SYRINGE IVP PRN (05:15)
[2020-02-26] MEDS ORDERED: NALOXONE 0.4 MG/ML 1 ML VIAL IV PRN (05:15)
[2020-02-26] MEDS ORDERED: HYDROmorphone 0.5 MG/0.5 ML SYRINGE IVP STA (06:05)
[2020-02-26 10:35] VITALS: TEMP 98.1
[2020-02-26] MEDS ORDERED: LISINOPRIL 20 MG TAB PO STA (10:41)
[2020-02-26] MEDS ORDERED: ATENOLOL 25 MG TAB PO SCH (10:45)
[2020-02-26 11:57] VITALS: BP 190/94; PULSE 64; RESP 17
--- NOTE | 2020-02-26 12:29 | P.HPIM ---
History of Present Illness 59-year-old male came in with diffuse abdominal pain sharp in nature about 9/10 in severity yesterday which has sounds 10 in severity today. Patient was recently discharged from the past after he went underwent laparoscopy Additional lysis Ileus. Patient has good bowel sounds did have bowel movement yesterday. Patient was consulted about 10 days and did take MiraLAX and magnesium citrate which made him have crampy and sharp abdominal paindensity of the abdomen showed mildly distended bowel loops. Although patient did have good bowel sounds no nausea vomiting. Patient was aware of a generous surgery cleared for discharge. Patient will be discharged on Tylenol 3 for pain and patient can take as needed MiraLAX for constipation I cannot give any NSAID because patient is ALLERGIC to naproxen. Review of Systems REVIEW OF SYSTEMS: CONSTITUTIONAL: No fever, no malaise, no fatigue. HEENT: No recent visual problems or hearing problems. Denied any sore throat. CARDIOVASCULAR: No chest pain, orthopnea, PND, no palpitations, no syncope. PULMONARY: No shortness of breath, no cough, no hemoptysis. GASTROINTESTINAL: No diarrhea, no nausea, no vomiting. NEUROLOGICAL: No headaches, no weakness, no numbness. HEMATOLOGICAL: Denies any bleeding or petechiae. GENITOURINARY: Denies any burning micturition, frequency, or urgency. MUSCULOSKELETAL/RHEUMATOLOGICAL: Denies any joint pain, swelling, or any muscle pain. ENDOCRINE: Denies any polyuria or polydipsia. The rest of the 14-point review of systems is negative. Past Medical History Past Medical History: Chest Pain / Angina, CVA/TIA, Diabetes Mellitus, GERD/Reflux, Hearing Disorder / Deafness, Hyperlipidemia, Hypertension, Renal Disease Additional Past Medical History / Comment(s): Pt recently admitted to [facility] on 02/17/20 with abdominal pain/possible gastritis/hiatal hernia/possible CKD stage II/severe depression. Other hx: IDDM type II, neuropathy bilateral feet, CVA with no residual, TIA, hydrocephalus with METALLURGICAL TESTER shunt, IBS, diverticulitis/bowel resection, hiatal hernia, DJD, occasional cervical pain, migraines, skull/head injury at age 19 with lengthy hospitalization, nephrolithiasis-passed stone on his own, [place] bilaterally. History of Any Multi-Drug Resistant Organisms: None Reported Past Surgical History: Back Surgery, Bowel Resection, Orthopedic Surgery Additional Past Surgical History / Comment(s): 02/18/20 Robot assisted laparoscopy/extensive lysis of adhesions, METALLURGICAL TESTER shunt, 2020 R elbow tendon surgery, L knee arthroscopy, L hand amp d/t industrial accident, cervical fusion, bowel resection d/t diverticulitis, EGD, colonoscopy, hemorrhoidectomy, Past Anesthesia/Blood Transfusion Reactions: No Reported Reaction Smoking Status: Current every day smoker - Past Family History Mother Family Medical History: Cancer Additional Family Medical History / Comment(s): kidney Father Family Medical History: Cancer Additional Family Medical History / Comment(s): pancreatic Medications and Allergies Home Medications Medication Instructions Recorded Confirmed Type Lisinopril [Zestril] 20 mg PO BID 11/24/15 02/26/20 History Simvastatin [Zocor] 40 mg PO AC-SUPPER 11/24/15 02/26/20 History Insulin Aspart [NovoLOG Flexpen] 10 units SQ AC-LUNCH 12/15/18 02/26/20 History Insulin Aspart [NovoLOG Flexpen] 20 units SQ AC-BID@0900,1800 12/15/18 02/26/20 History Insulin Detemir (Levemir) [Levemir] 45 unit SQ DAILY 12/15/18 02/26/20 History Pantoprazole [Protonix] 40 mg PO DAILY 05/09/19 02/26/20 History ALPRAZolam [Xanax] 0.5 mg PO BID PRN 11/27/19 02/26/20 History Aspirin EC [Ecotrin Low Dose] 81 mg PO DAILY 02/15/20 02/26/20 History Sucralfate [Carafate] 1 gm PO AC-TID 02/15/20 02/26/20 History Atenolol 25 mg PO DAILY 02/17/20 02/26/20 History Acetaminophen Tab [Tylenol] 650 mg PO Q4H PRN #30 tablet 02/19/20 02/26/20 Rx buPROPion XL [Wellbutrin XL] 150 mg PO DAILY #30 tab.er.24h 02/20/20 02/26/20 Rx traZODone HCL [Desyrel] 50 mg PO HS #30 tab 02/20/20 02/26/20 Rx Acetaminophen with Codeine 1 tab PO Q4H PRN 3 Days #18 tab 07/10/20 Rx [Tylenol w/codeine #3] Allergies Allergy/AdvReac Type Severity Reaction Status Date / Time blue dye Allergy Severe Rash/Hives Verified 02/26/20 06:30 codeine Allergy Itching Verified 02/26/20 06:30 naproxen sodium [From Aleve] Allergy Rash/Hives Verified 02/26/20 06:30 ondansetron [From Zofran] Allergy Rash/Hives Verified 02/26/20 06:30 gabapentin AdvReac Abdominal Verified 02/26/20 06:30 Pain naloxegol [From Movantik] AdvReac Nausea & Verified 02/26/20 06:30 Vomiting Physical Exam Vitals: Vital Signs Temp Pulse Resp BP Pulse Ox 02/26/20 11:52 64 17 190/94 97 02/26/20 10:24 98.1 F 71 19 200/106 97 02/26/20 06:31 178/87 02/26/20 06:00 65 18 197/101 98 02/26/20 03:30 182/98 02/26/20 03:15 202/97 02/26/20 03:07 98.8 F 70 18 180/103 97 Intake and Output 02/25/20 02/26/20 02/26/20 22:59 06:59 14:59 Other: Weight 86.183 kg 86.183 kg PHYSICAL EXAMINATION: GENERAL: The patient is alert and oriented x3, not in any acute distress. Well developed, well nourished. HEENT: Pupils are round and equally reacting to light. EOMI. No scleral icterus. No conjunctival pallor. Normocephalic, atraumatic. No pharyngeal erythema. No thyromegaly. CARDIOVASCULAR: S1 and S2 present. No murmurs, rubs, or gallops. PULMONARY: Chest is clear to auscultation, no wheezing or crackles. ABDOMEN: Soft, nontender, nondistended, normoactive bowel sounds. No palpable organomegaly.surgical site areas look clean MUSCULOSKELETAL: No joint swelling or deformity. EXTREMITIES: No cyanosis, clubbing, or pedal edema. NEUROLOGICAL: Gross neurological examination did not reveal any focal deficits. SKIN: No rashes. Results CBC & Chem 7: 02/26/20 03:22 02/26/20 03:22 Labs: Abnormal Lab Results - Last 24 Hours (Table) 02/26/20 02/26/20 Range/Units 03:22 03:22 WBC 11.9 H (3.8-10.6) k/uL Neutrophils # 8.5 H (1.3-7.7) k/uL Sodium 136 L (137-145) mmol/L Glucose 214 H (74-99) mg/dL Thrombosis Risk Factor Assmnt - Choose All That Apply Any of the Below Risk Factors Present?: Yes Each Factor Represents 1 point: Obesity (BMI >25) Other Risk Factors: Yes Each Risk Factor Represents 2 Points: Age 61-74 years Other congenital or acquired thrombophilia - If yes, enter type in comment: No Thrombosis Risk Factor Assessment Total Risk Factor Score: 3 Thrombosis Risk Factor Assessment Level: Moderate Risk Assessment and Plan Plan: -abdominal pain: Significant improved probably is because of cramping from a multiple medications for constipation. patient was evaluated by general surgery. Patient doesn't have any clinical evidence of ileus patient will be discharged today. -type 2 diabetes mellitus: Patient will resume on his home regimen gastro-dysphagia reflux disease patient on Protonix -Hyperlipidemia -Hypertension -CVA TIA in the past -Depression For above-mentioned chronic medical problems patient will be resumed on home regimen
--- NOTE | 2020-02-26 12:29 | P.DS ---
Providers Date of admission: 02/26/20 05:15 Attending physician: Anu Almaguer Consults: 02/26/20 05:16 Consult Physician Urgent Consulting Provider: Janine Mercedes Consult Reason/Comments: post op ileus, abdominal pain Do you want consulting provider notified?: Yes Primary care physician: Dru Colby Hospital Course: as mentioned in HPI Patient Condition at Discharge: Stable Plan - Discharge Summary Discharge Rx Participant: No New Discharge Prescriptions: New Acetaminophen with Codeine [Tylenol w/codeine #3] 1 tab PO Q4H PRN 3 Days #18 tab PRN Reason: Pain Continue Simvastatin [Zocor] 40 mg PO AC-SUPPER Lisinopril [Zestril] 20 mg PO BID Insulin Detemir (Levemir) [Levemir] 45 unit SQ DAILY Insulin Aspart [NovoLOG Flexpen] 20 units SQ AC-BID@0900,1800 Insulin Aspart [NovoLOG Flexpen] 10 units SQ AC-LUNCH Pantoprazole [Protonix] 40 mg PO DAILY ALPRAZolam [Xanax] 0.5 mg PO BID PRN PRN Reason: Anxiety Aspirin EC [Ecotrin Low Dose] 81 mg PO DAILY Sucralfate [Carafate] 1 gm PO AC-TID Atenolol 25 mg PO DAILY Acetaminophen Tab [Tylenol] 650 mg PO Q4H PRN #30 tablet PRN Reason: Pain traZODone HCL [Desyrel] 50 mg PO HS #30 tab buPROPion XL [Wellbutrin XL] 150 mg PO DAILY #30 tab.er.24h Discharge Medication List Lisinopril [Zestril] 20 mg PO BID 11/24/15 [History] Simvastatin [Zocor] 40 mg PO AC-SUPPER 11/24/15 [History] Insulin Aspart [NovoLOG Flexpen] 10 units SQ AC-LUNCH 12/15/18 [History] Insulin Aspart [NovoLOG Flexpen] 20 units SQ AC-BID@0900,1800 12/15/18 [History] Insulin Detemir (Levemir) [Levemir] 45 unit SQ DAILY 12/15/18 [History] Pantoprazole [Protonix] 40 mg PO DAILY 05/09/19 [History] ALPRAZolam [Xanax] 0.5 mg PO BID PRN 11/27/19 [History] Aspirin EC [Ecotrin Low Dose] 81 mg PO DAILY 02/15/20 [History] Sucralfate [Carafate] 1 gm PO AC-TID 02/15/20 [History] Atenolol 25 mg PO DAILY 02/17/20 [History] Acetaminophen Tab [Tylenol] 650 mg PO Q4H PRN #30 tablet 02/19/20 [Rx] buPROPion XL [Wellbutrin XL] 150 mg PO DAILY #30 tab.er.24h 02/20/20 [Rx] traZODone HCL [Desyrel] 50 mg PO HS #30 tab 02/20/20 [Rx] Acetaminophen with Codeine [Tylenol w/codeine #3] 1 tab PO Q4H PRN 3 Days #18 tab 02/26/20 [Rx] Follow up Appointment(s)/Referral(s): Dru Colby MD [Primary Care Provider] - 3 Days Discharge Disposition: HOME SELF-CARE
--- NOTE | 2020-02-26 13:04 | P.GSCN ---
History of Present Illness Consult date: 02/26/20 History of present illness: Patient presents to the emergency room after developing acute onset abdominal pain. He reports being in emergency room less than 2 days ago where he had severe constipation. He had results with enemas. He then went home and drank whole bottle of MiraLAX. Afterwards, he developed diffuse abdominal pain. Patient came back to the emergency room. He is passing flatus having bowel movements. No reports of abdominal pain as prior to his lysis of adhesions. I personally reviewed his CT of the abdomen pelvis without any findings of bowel obstruction. At the time of my assessment, patient's abdominal pain had appeared to resolve. Patient educated on alternatives for constipation such as stool softeners. Additionally, patient advised to avoid large volume cathartics. Overall, patient stable from a surgical standpoint for discharge with follow-up as outpatient. Past Medical History Past Medical History: Chest Pain / Angina, CVA/TIA, Diabetes Mellitus, GERD/Reflux, Hearing Disorder / Deafness, Hyperlipidemia, Hypertension, Renal Disease Additional Past Medical History / Comment(s): Pt recently admitted to [facility] on 02/17/20 with abdominal pain/possible gastritis/hiatal hernia/possible CKD stage II/severe depression. Other hx: IDDM type II, neuropathy bilateral feet, CVA with no residual, TIA, hydrocephalus with PASTORAL COUNSELOR shunt, IBS, diverticulitis/bowel resection, hiatal hernia, DJD, occasional cervical pain, migraines, skull/head injury at age 19 with lengthy hospitalization, nephrolithiasis-passed stone on his own, [place] bilaterally. History of Any Multi-Drug Resistant Organisms: None Reported Past Surgical History: Back Surgery, Bowel Resection, Orthopedic Surgery Additional Past Surgical History / Comment(s): 02/18/20 Robot assisted laparoscopy/extensive lysis of adhesions, PASTORAL COUNSELOR shunt, 2020 R elbow tendon surgery, L knee arthroscopy, L hand amp d/t industrial accident, cervical fusion, bowel resection d/t diverticulitis, EGD, colonoscopy, hemorrhoidectomy, Past Anesthesia/Blood Transfusion Reactions: No Reported Reaction Smoking Status: Current every day smoker - Past Family History Mother Family Medical History: Cancer Additional Family Medical History / Comment(s): kidney Father Family Medical History: Cancer Additional Family Medical History / Comment(s): pancreatic Medications and Allergies Home Medications Medication Instructions Recorded Confirmed Type Lisinopril [Zestril] 20 mg PO BID 11/24/15 02/26/20 History Simvastatin [Zocor] 40 mg PO AC-SUPPER 11/24/15 02/26/20 History Insulin Aspart [NovoLOG Flexpen] 10 units SQ AC-LUNCH 12/15/18 02/26/20 History Insulin Aspart [NovoLOG Flexpen] 20 units SQ AC-BID@0900,1800 12/15/18 02/26/20 History Insulin Detemir (Levemir) [Levemir] 45 unit SQ DAILY 12/15/18 02/26/20 History Pantoprazole [Protonix] 40 mg PO DAILY 05/09/19 02/26/20 History ALPRAZolam [Xanax] 0.5 mg PO BID PRN 11/27/19 02/26/20 History Aspirin EC [Ecotrin Low Dose] 81 mg PO DAILY 02/15/20 02/26/20 History Sucralfate [Carafate] 1 gm PO AC-TID 02/15/20 02/26/20 History Atenolol 25 mg PO DAILY 02/17/20 02/26/20 History Acetaminophen Tab [Tylenol] 650 mg PO Q4H PRN #30 tablet 02/19/20 02/26/20 Rx buPROPion XL [Wellbutrin XL] 150 mg PO DAILY #30 tab.er.24h 02/20/20 02/26/20 Rx traZODone HCL [Desyrel] 50 mg PO HS #30 tab 02/20/20 02/26/20 Rx Acetaminophen with Codeine 1 tab PO Q4H PRN 3 Days #18 tab 02/26/20 Rx [Tylenol w/codeine #3] Allergies Allergy/AdvReac Type Severity Reaction Status Date / Time blue dye Allergy Severe Rash/Hives Verified 02/26/20 06:30 codeine Allergy Itching Verified 02/26/20 06:30 naproxen sodium [From Aleve] Allergy Rash/Hives Verified 02/26/20 06:30 ondansetron [From Zofran] Allergy Rash/Hives Verified 02/26/20 06:30 gabapentin AdvReac Abdominal Verified 02/26/20 06:30 Pain naloxegol [From Movantik] AdvReac Nausea & Verified 02/26/20 06:30 Vomiting Surgical - Exam Vital Signs Temp Pulse Resp BP Pulse Ox 98.8 F 70 18 180/103 97 02/26/20 03:07 02/26/20 03:07 02/26/20 03:07 02/26/20 03:07 02/26/20 03:07 Results - Labs 02/26/20 03:22 02/26/20 03:22 Abnormal Lab Results - Last 24 Hours (Table) 02/26/20 02/26/20 Range/Units 03:22 03:22 WBC 11.9 H (3.8-10.6) k/uL Neutrophils # 8.5 H (1.3-7.7) k/uL Sodium 136 L (137-145) mmol/L Glucose 214 H (74-99) mg/dL Diabetes panel 02/26/20 Range/Units 03:22 Sodium 136 L (137-145) mmol/L Potassium 4.4 (3.5-5.1) mmol/L Chloride 103 (98-107) mmol/L Carbon Dioxide 24 (22-30) mmol/L BUN 19 (9-20) mg/dL Creatinine 1.03 (0.66-1.25) mg/dL Glucose 214 H (74-99) mg/dL Calcium 9.3 (8.4-10.2) mg/dL AST 20 (17-59) U/L ALT 24 (4-49) U/L Alkaline Phosphatase 118 (38-126) U/L Total Protein 6.5 (6.3-8.2) g/dL Albumin 4.0 (3.5-5.0) g/dL Calcium panel 02/26/20 Range/Units 03:22 Calcium 9.3 (8.4-10.2) mg/dL Albumin 4.0 (3.5-5.0) g/dL Pituitary panel 02/26/20 Range/Units 03:22 Sodium 136 L (137-145) mmol/L Potassium 4.4 (3.5-5.1) mmol/L Chloride 103 (98-107) mmol/L Carbon Dioxide 24 (22-30) mmol/L BUN 19 (9-20) mg/dL Creatinine 1.03 (0.66-1.25) mg/dL Glucose 214 H (74-99) mg/dL Calcium 9.3 (8.4-10.2) mg/dL Adrenal panel 02/26/20 Range/Units 03:22 Sodium 136 L (137-145) mmol/L Potassium 4.4 (3.5-5.1) mmol/L Chloride 103 (98-107) mmol/L Carbon Dioxide 24 (22-30) mmol/L BUN 19 (9-20) mg/dL Creatinine 1.03 (0.66-1.25) mg/dL Glucose 214 H (74-99) mg/dL Calcium 9.3 (8.4-10.2) mg/dL Total Bilirubin 0.6 (0.2-1.3) mg/dL AST 20 (17-59) U/L ALT 24 (4-49) U/L Alkaline Phosphatase 118 (38-126) U/L Total Protein 6.5 (6.3-8.2) g/dL Albumin 4.0 (3.5-5.0) g/dL
[2020-02-26] MEDS ORDERED: LISINOPRIL 20 MG TAB PO SCH (21:00)
== END 2020-02-26 12:43 | disposition home or self-care (01) | DRG 392 ==
LOC: EC 02:56 → 5NMEDONC 05:15
PROVIDERS: ADMIT Hospitalist; ATTEND Hospitalist
DX: R10.9 Unspecified abdominal pain (principal); F17.200 Nicotine dependence, unspecified, uncomplicated; E78.5 Hyperlipidemia, unspecified; F32.9 Major depressive disorder, single episode, unspecified; H91.90 Unspecified hearing loss, unspecified ear; K21.9 Gastro-esophageal reflux disease without esophagitis; G43.909 Migraine, unspecified, not intractable, without status migrainosus; F41.9 Anxiety disorder, unspecified; I12.9 Hypertensive chronic kidney disease with stage 1 through stage 4 chronic kidney disease, or unspecified chronic kidney disease; N18.2 Chronic kidney disease, stage 2 (mild); E11.42 Type 2 diabetes mellitus with diabetic polyneuropathy; E11.22 Type 2 diabetes mellitus with diabetic chronic kidney disease; T50.995A Adverse effect of other drugs, medicaments and biological substances, initial encounter; Z11.59 Encounter for screening for other viral diseases; Z79.4 Long term (current) use of insulin; Z79.82 Long term (current) use of aspirin; Z79.899 Other long term (current) drug therapy; Z88.5 Allergy status to narcotic agent; Z88.8 Allergy status to other drugs, medicaments and biological substances; Z91.09 Other allergy status, other than to drugs and biological substances; Z86.73 Personal history of transient ischemic attack (TIA), and cerebral infarction without residual deficits; Z98.2 Presence of cerebrospinal fluid drainage device; Z90.49 Acquired absence of other specified parts of digestive tract; Z98.890 Other specified postprocedural states; Z98.1 Arthrodesis status; Z80.51 Family history of malignant neoplasm of kidney; Z80.0 Family history of malignant neoplasm of digestive organs
CPT/HCPCS: 36415; 74177; 80053; 83690; 85025; 96361; 96374; 96376; 99285

== ENCOUNTER 2020-02-29 01:03 | Emergency (ER) | payer BC, MEDICARE ==
[2020-02-29 01:08] VITALS: RESP 18; TEMP 97.9
[2020-02-29] MEDS ORDERED: MORPHINE SULFATE 4 MG/ML SYRINGE IM STA (01:14)
--- NOTE | 2020-02-29 01:42 | XR ---
EXAMINATION TYPE: XR abdomen 2V DATE OF EXAM: 02/29/2020 COMPARISON: NONE HISTORY: Abdominal pain TECHNIQUE: 3 views FINDINGS: Supine and upright views were obtained. There is no sign of intestinal obstruction or pneum operitoneum. Fecal pattern is fairly normal. There is no evidence of a mass. There is ventriculoperit escalera shunt catheter. Lung bases are clear. There are no pathologic calcifications over the kidneys. IMPRESSION: Nonacute abdomen. There is clearing of the multiple intestinal air-fluid levels compared to old exam.
[2020-02-29] MEDS ORDERED: DICYCLOMINE 10 MG/ML 2 ML AMP IM STA (02:31)
--- NOTE | 2020-02-29 02:31 | ED ---
Abdominal Pain HPI - General Chief Complaint: Abdominal Pain Stated Complaint: Abdominal pain Time Seen by Provider: 02/29/20 01:14 Source: patient Mode of arrival: ambulatory Limitations: no limitations - History of Present Illness Initial Comments: Asher is a 64-year-old male was recently been evaluated very regular basis for abdominal pain and a chronic ileus. Patient underwent surgery earlier this month for lysis of adhesions. He's had multiple ER visits since that time for chronic abdominal pain with x-ray findings of ileus. Patient was admitted last week for this and discharged home. Patient states he was discharged home on codeine which he is ALLERGIC to he states that it causes him to be very itchy he tried one pill and states that he was so itchy he considered taking sandpaper to his skin. His abdominal pain came back which prompted him come the ER. He still eating and drinking having bowel movements without difficulty. - Related Data Home Medications Medication Instructions Recorded Confirmed Lisinopril [Zestril] 20 mg PO BID 11/24/15 02/26/20 Simvastatin [Zocor] 40 mg PO AC-SUPPER 11/24/15 02/26/20 Insulin Aspart [NovoLOG Flexpen] 10 units SQ AC-LUNCH 12/15/18 02/26/20 Insulin Aspart [NovoLOG Flexpen] 20 units SQ AC-BID@0900,1800 12/15/18 02/26/20 Insulin Detemir (Levemir) [Levemir] 45 unit SQ DAILY 12/15/18 02/26/20 Pantoprazole [Protonix] 40 mg PO DAILY 05/09/19 02/26/20 ALPRAZolam [Xanax] 0.5 mg PO BID PRN 11/27/19 02/26/20 Aspirin EC [Ecotrin Low Dose] 81 mg PO DAILY 02/15/20 02/26/20 Sucralfate [Carafate] 1 gm PO AC-TID 02/15/20 02/26/20 Atenolol 25 mg PO DAILY 02/17/20 02/26/20 Previous Rx's Medication Instructions Recorded Acetaminophen Tab [Tylenol] 650 mg PO Q4H PRN #30 tablet 02/19/20 buPROPion XL [Wellbutrin XL] 150 mg PO DAILY #30 tab.er.24h 02/20/20 traZODone HCL [Desyrel] 50 mg PO HS #30 tab 02/20/20 Acetaminophen with Codeine 1 tab PO Q4H PRN 3 Days #18 tab 02/26/20 [Tylenol w/codeine #3] HYDROcodone/APAP 5-325MG [[place] 1 tab PO Q6HR PRN 3 Days #12 tab 02/29/20 5-325] Allergies Allergy/AdvReac Type Severity Reaction Status Date / Time blue dye Allergy Severe Rash/Hives Verified 02/29/20 01:08 codeine Allergy Itching Verified 02/29/20 01:08 naproxen sodium [From Aleve] Allergy Rash/Hives Verified 02/29/20 01:08 ondansetron [From Zofran] Allergy Rash/Hives Verified 02/29/20 01:08 gabapentin AdvReac Abdominal Verified 02/29/20 01:08 Pain naloxegol [From Movantik] AdvReac Nausea & Verified 02/29/20 01:08 Vomiting Review of Systems ROS Statement: Those systems with pertinent positive or pertinent negative responses have been documented in the HPI. ROS Other: All systems not noted in ROS Statement are negative. Past Medical History Past Medical History: Chest Pain / Angina, CVA/TIA, Diabetes Mellitus, GERD/Reflux, Hearing Disorder / Deafness, Hyperlipidemia, Hypertension, Renal Disease Additional Past Medical History / Comment(s): Pt recently admitted to [facility] on 02/17/20 with abdominal pain/possible gastritis/hiatal hernia/possible CKD stage II/severe depression. Other hx: IDDM type II, neuropathy bilateral feet, CVA with no residual, TIA, hydrocephalus with TERRITORY ACCOUNT REPRESENTATIVE shunt, IBS, diverticulitis/bowel resection, hiatal hernia, DJD, occasional cervical pain, migraines, skull/head injury at age 19 with lengthy hospitalization, nephrolithiasis-passed stone on his own, [place] bilaterally. History of Any Multi-Drug Resistant Organisms: None Reported Past Surgical History: Back Surgery, Bowel Resection, Orthopedic Surgery Additional Past Surgical History / Comment(s): 02/18/20 Robot assisted laparoscopy/extensive lysis of adhesions, TERRITORY ACCOUNT REPRESENTATIVE shunt, 2020 R elbow tendon surgery, L knee arthroscopy, L hand amp d/t industrial accident, cervical fusion, bowel resection d/t diverticulitis, EGD, colonoscopy, hemorrhoidectomy, Past Anesthesia/Blood Transfusion Reactions: No Reported Reaction Past Psychological History: Anxiety, Depression Smoking Status: Current every day smoker Past Alcohol Use History: None Reported Past Drug Use History: Marijuana - Past Family History Mother Family Medical History: Cancer Additional Family Medical History / Comment(s): kidney Father Family Medical History: Cancer Additional Family Medical History / Comment(s): pancreatic General Exam - General Exam Comments Initial Comments: Physical Exam GENERAL: Patient is well-developed and well-nourished. Patient is nontoxic and well-hydrated and is in no distress. HENT: Normocephalic, Atraumatic. EYES: PERRL, EOMI PULMONARY: Unlabored respirations. CARDIOVASCULAR: RRR Warm and well perfused extremities ABDOMEN: Non-distended SKIN: No rashes or bruising : Deferred NEUROLOGIC: Alert and oriented Normal speech Normal gait MUSCULOSKELETAL: Moving all extremities with no apparent injury Left mid forearm amputation PSYCHIATRIC: No SI/HI Limitations: no limitations Course Vital Signs 02/29/20 02/29/20 01:04 02:53 Temperature 97.9 F Pulse Rate 72 70 Respiratory 18 18 Rate Blood Pressure 201/97 177/97 O2 Sat by Pulse 97 97 Oximetry Medical Decision Making - Medical Decision Making The patient was seen and evaluated, history is obtained from patient and review of medical record, this is my third time seeing the patient in the past 10 days and very familiar with his history X-ray confirmed improvement and previous findings no signs of ileus or bowel obstruction Results were discussed with the patient who received IM morphine reports he's feeling somewhat better is comfortable with the plan for discharge home on oral [place] which she states she's tolerated well in the past with no adverse reaction. Patient was encouraged to take a stool softener and continue MiraLAX daily. 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 Disposition Clinical Impression: Chronic abdominal pain Disposition: HOME SELF-CARE Condition: Stable Instructions (If sedation given, give patient instructions): Abdominal Pain (ED) Prescriptions: HYDROcodone/APAP 5-325MG [[place] 5-325] 1 tab PO Q6HR PRN 3 Days #12 tab PRN Reason: Pain Is patient prescribed a controlled substance at d/c from ED?: Yes When asked, does pt state using other controlled substances?: No If prescribed controlled substance>3 days was MAPS reviewed?: Prescribed <3 Days If opioid is for acute pain is fill amount 7 days or less?: Yes If Rx opioid, was Start Talking consent form obtained?: No Referrals: Dru Colby MD [Primary Care Provider] - 1-2 days Yamila Guillen MD [STAFF PHYSICIAN] - 1-2 days
[2020-02-29 02:55] VITALS: BP 177/97; PULSE 70
== END 2020-02-29 03:43 | disposition home or self-care (01) ==
LOC: EC 01:03
DX: G89.29 Other chronic pain (principal); R10.9 Unspecified abdominal pain; K21.9 Gastro-esophageal reflux disease without esophagitis; E11.42 Type 2 diabetes mellitus with diabetic polyneuropathy; K58.9 Irritable bowel syndrome, unspecified; E78.5 Hyperlipidemia, unspecified; I10 Essential (primary) hypertension; F41.9 Anxiety disorder, unspecified; F32.9 Major depressive disorder, single episode, unspecified; I25.2 Old myocardial infarction; F17.200 Nicotine dependence, unspecified, uncomplicated; Z79.4 Long term (current) use of insulin; Z79.82 Long term (current) use of aspirin; Z79.899 Other long term (current) drug therapy; Z88.5 Allergy status to narcotic agent; Z91.041 Radiographic dye allergy status; Z88.6 Allergy status to analgesic agent; Z88.8 Allergy status to other drugs, medicaments and biological substances; Z90.49 Acquired absence of other specified parts of digestive tract; Z87.19 Personal history of other diseases of the digestive system; Z98.890 Other specified postprocedural states; Z98.2 Presence of cerebrospinal fluid drainage device; Z86.73 Personal history of transient ischemic attack (TIA), and cerebral infarction without residual deficits; Z89.212 Acquired absence of left upper limb below elbow
CPT/HCPCS: 74019; 99284; 96372 ×2; J2270; J0500

== ENCOUNTER 2020-03-03 08:39 | Emergency (ER) | payer BC, MEDICARE ==
[2020-03-03 08:45] VITALS: TEMP 98
[2020-03-03] MEDS ORDERED: PANTOPRAZOLE 40 MG/10 ML VIAL IVP STA (09:11)
[2020-03-03] MEDS ORDERED: SODIUM CHLORIDE 0.9% 1,000 ML IV STA ×2 (09:11)
[2020-03-03] MEDS ORDERED: MORPHINE SULFATE 2 MG/ML SYRINGE IVP STA (09:11)
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
[2020-03-03 09:58] LABS: Basophils # (A) 0.2 k/uL (0-0.2); Basophils % (A) 1 %; Eosinophils # (A) 0.4 k/uL (0-0.7); Eosinophils % (A) 3 %; HCT 51.4 % (39.0-53.0); HGB 16.5 gm/dL (13.0-17.5); Lymphocytes # (A) 1.5 k/uL (1.0-4.8); Lymphocytes % (A) 12 %; MCH 29.9 pg (25.0-35.0); MCHC 32.1 g/dL (31.0-37.0); MCV 93.3 fL (80.0-100.0); Monocytes # (A) 0.6 k/uL (0-1.0); Monocytes % (A) 4 %; Neutrophils # (A) 10.3 k/uL (1.3-7.7); Neutrophils % (A) 79 %; Platelet Count 304 k/uL (150-450); RBC 5.51 m/uL (4.30-5.90); RDW 13.4 % (11.5-15.5); WBC 13.1 k/uL (3.8-10.6)
[2020-03-03 10:08] LABS: INR 1.1 (<1.2); Partial Thromboplastin Time 25.2 sec (22.0-30.0); Prothrombin Time 11.1 sec (9.0-12.0)
[2020-03-03 10:09] LABS: ALT 20 U/L (4-49); AST 16 U/L (17-59); African American GFR (CKD) >90 (>60 ml/min/1.73 sqM); Albumin 4.2 g/dL (3.5-5.0); Alkaline Phosphatase 102 U/L (38-126); Amylase 57 U/L (30-110); Anion Gap 8 mmol/L; Blood Urea Nitrogen 17 mg/dL (9-20); Calcium 9.2 mg/dL (8.4-10.2); Carbon Dioxide 24 mmol/L (22-30); Chloride 105 mmol/L (98-107); Glucose 293 mg/dL (74-99); Lipase 60 U/L (23-300); Non-African American GFR(CKD) 84 (>60 ml/min/1.73 sqM); Potassium 4.8 mmol/L (3.5-5.1); Sodium 137 mmol/L (137-145); Total Bilirubin 1.2 mg/dL (0.2-1.3); Total Protein 6.5 g/dL (6.3-8.2)
--- NOTE | 2020-03-03 10:20 | XR ---
KUB HISTORY: Abdominal pain Frontal KUB and 2 images correlated to prior abdomen 02/29/2020, CT 02/26/2020 Retained fecal debris is present throughout the distribution of the colon. There is an indwelling atilio nt tubing present in the midabdomen. There are overlying leads. Lung bases are clear. No evident pneu moperitoneum or bowel obstruction. No pathologic calcification. IMPRESSION: Correlate for fecal stasis.
[2020-03-03] MEDS ORDERED: LABETALOL 5 MG/ML VIAL MDV IVP STA (11:31)
[2020-03-03] MEDS ORDERED: MORPHINE SULFATE 4 MG/ML SYRINGE IVP STA (11:34)
[2020-03-03 11:42] LABS: Appearance,Urine Clear (Clear); Bilirubin,Urine Negative (Negative); Blood,Urine Negative (Negative); Color,Urine Light Yellow; Glucose,Urine (UA) 4+ (Negative); Ketones,Urine Negative (Negative); Leukocyte Esterase,Urine Negative (Negative); Mucus,Urine Rare /hpf; Nitrite,Urine Negative (Negative); Protein,Urine 2+ (Negative); RBC,Urine <1 /hpf (0-5); Specific Gravity,Urine 1.021 (1.001-1.035); Urobilinogen,Urine <2.0 mg/dL (<2.0); WBC,Urine 1 /hpf (0-5)
[2020-03-03 12:08] VITALS: BP 193/105; PULSE 76; RESP 18
== END 2020-03-03 12:19 | disposition home or self-care (01) ==
LOC: EC 08:39
DX: R10.13 Epigastric pain (principal); I12.9 Hypertensive chronic kidney disease with stage 1 through stage 4 chronic kidney disease, or unspecified chronic kidney disease; E11.42 Type 2 diabetes mellitus with diabetic polyneuropathy; E11.22 Type 2 diabetes mellitus with diabetic chronic kidney disease; E78.5 Hyperlipidemia, unspecified; F41.9 Anxiety disorder, unspecified; N18.2 Chronic kidney disease, stage 2 (mild); I20.9 Angina pectoris, unspecified; F17.200 Nicotine dependence, unspecified, uncomplicated; F32.9 Major depressive disorder, single episode, unspecified; Z79.82 Long term (current) use of aspirin; Z79.4 Long term (current) use of insulin; Z79.899 Other long term (current) drug therapy; Z86.73 Personal history of transient ischemic attack (TIA), and cerebral infarction without residual deficits; Z88.5 Allergy status to narcotic agent; Z88.8 Allergy status to other drugs, medicaments and biological substances; Z91.041 Radiographic dye allergy status
CPT/HCPCS: 36415; 93005; 80053; 82150; 83690; 84484; 85025; 85610; 85730; 81001; 74018; 99285; 96374; 96375 ×2; 96376; 96361; J2270 ×2; C9113

== ENCOUNTER 2020-03-05 04:30 | Emergency (ER) | payer BC, MEDICARE ==
[2020-03-05 05:02] LABS: Basophils # (A) 0.1 k/uL (0-0.2); Basophils % (A) 1 %; Eosinophils # (A) 0.6 k/uL (0-0.7); Eosinophils % (A) 4 %; HGB 17.4 gm/dL (13.0-17.5); Lymphocytes # (A) 2.4 k/uL (1.0-4.8); Lymphocytes % (A) 14 %; MCH 31.1 pg (25.0-35.0); MCHC 32.9 g/dL (31.0-37.0); MCV 94.7 fL (80.0-100.0); Mean Platelet Volume 6.9; Monocytes # (A) 0.7 k/uL (0-1.0); Monocytes % (A) 4 %; Neutrophils # (A) 12.4 k/uL (1.3-7.7); Neutrophils % (A) 76 %; Platelet Count 285 k/uL (150-450); RDW 13.5 % (11.5-15.5); WBC 16.4 k/uL (3.8-10.6)
[2020-03-05 05:10] LABS: ALT 18 U/L (4-49); AST 19 U/L (17-59); African American GFR (CKD) >90 (>60 ml/min/1.73 sqM); Albumin 4.5 g/dL (3.5-5.0); Alkaline Phosphatase 105 U/L (38-126); Amylase 54 U/L (30-110); Anion Gap 8 mmol/L; Blood Urea Nitrogen 15 mg/dL (9-20); Calcium 9.7 mg/dL (8.4-10.2); Carbon Dioxide 24 mmol/L (22-30); Chloride 103 mmol/L (98-107); Glucose 256 mg/dL (74-99); Non-African American GFR(CKD) 83 (>60 ml/min/1.73 sqM); Potassium 4.6 mmol/L (3.5-5.1); Sodium 135 mmol/L (137-145); Total Bilirubin 1.4 mg/dL (0.2-1.3); Total Protein 6.9 g/dL (6.3-8.2)
[2020-03-05 05:12] VITALS: RESP 18; TEMP 98.7
[2020-03-05 05:40] LABS: Appearance,Urine Clear (Clear); Bilirubin,Urine Negative (Negative); Blood,Urine Trace (Negative); Color,Urine Yellow; Glucose,Urine (UA) 4+ (Negative); Ketones,Urine 1+ (Negative); Leukocyte Esterase,Urine Negative (Negative); Mucus,Urine Rare /hpf; Nitrite,Urine Negative (Negative); Protein,Urine 2+ (Negative); RBC,Urine 3 /hpf (0-5); Urobilinogen,Urine <2.0 mg/dL (<2.0); WBC,Urine <1 /hpf (0-5)
[2020-03-05] MEDS ORDERED: DICYCLOMINE 10 MG/ML 2 ML AMP IM STA (06:25)
[2020-03-05] MEDS ORDERED: MAGNESIUM CITRATE 296 ML BOTTLE PO ONE (06:25)
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
[2020-03-05] MEDS ORDERED: MAG HYDROX/AL HYDROX/SIMETH 30 ML, HYOSCYAMINE ELIXIR 10 ML, LIDOCAINE VISCOUS 2% 10 ML PO STA ×3 (07:14)
[2020-03-05] MEDS ORDERED: IOPAMIDOL CONTRAST (ORAL USE) VIAL PO PRN (07:20)
--- NOTE | 2020-03-05 08:52 | CT ---
EXAMINATION TYPE: CT abdomen pelvis w con DATE OF EXAM: 03/05/2020 REFERENCE: Previous study dated 02/26/2020. HISTORY: Right sided abdominal pain HISTORY: Lower abdominal pain CT DLP: 1122.9 mGy Automated exposure control for dose reduction was used. TECHNIQUE: Helical acquisition through the abdomen and pelvis was obtained following the oral ingesti on of without Oral Contrast and following intravenous administration of 100 mL of Isovue 300. The sveta a was reformatted in axial, coronal and sagittal projections. FINDINGS: There is some dependent atelectasis within the dependent portions of the lungs. There is n o pleural or pericardial fluid. The heart is not enlarged. Within the abdomen, the liver, spleen and gallbladder are unremarkable. There is a small, sliding hia mone hernia. Both adrenal glands are normal. There are stable, simple appearing, bilateral renal cysts . The pancreas is unremarkable. There is moderate atheromatous calcification of their is no significant retroperitoneal, iliac or ing uinal adenopathy. The bladder is unremarkable. There is no significant diverticular change and there is no radiographic evidence of diverticulitis. The appendix is unremarkable. There is a small loop of mildly distended, fluid-filled jejunum in the left upper quadrant not signif icantly changed from previous. The remainder the small bowel is fairly normal in its appearance. There is no free fluid and no free air. There is mild facet arthropathy in the lower lumbar spine. IMPRESSION: 1. CONTINUING, MILD DILATATION OF THE PROXIMAL JEJUNUM, UNCHANGED FROM PREVIOUS WITHOUT EVIDENCE OF A MECHANICAL SMALL BOWEL OBSTRUCTION. 2. BILATERAL, SIMPLE APPEARING RENAL CYSTS. 3. FACET ARTHROPATHY, LOWER LUMBAR SPINE.
--- NOTE | 2020-03-05 09:42 | XR ---
EXAM: XR Abdomen, 1 View CLINICAL HISTORY: ITS. REASON XR Reason: abdominal pain TECHNIQUE: Frontal supine view of the abdomen/pelvis. COMPARISON: No relevant prior studies available. FINDINGS/IMPRESSION: Right-sided ventriculoperitoneal shunt which terminates in the right lower quadrant, adjacent to cecum. Severe fecal retention, preferentially involving the cecum, ascending colon, and transverse colon, correlate for constipation. Nonobstructed bowel gas pattern. No free intraperitoneal air. The lung bases are clear. The osseous structures are intact.
[2020-03-05] MEDS ORDERED: HYDROmorphone 1 MG/ML 1 ML SYRINGE IVP STA (10:27)
[2020-03-05 11:05] VITALS: BP 163/81; PULSE 68
== END 2020-03-05 11:21 | disposition home or self-care (01) ==
LOC: EC 04:30
DX: K59.00 Constipation, unspecified (principal); F43.20 Adjustment disorder, unspecified; R45.851 Suicidal ideations; I25.2 Old myocardial infarction; K21.9 Gastro-esophageal reflux disease without esophagitis; E78.5 Hyperlipidemia, unspecified; I10 Essential (primary) hypertension; F41.9 Anxiety disorder, unspecified; F32.9 Major depressive disorder, single episode, unspecified; E11.42 Type 2 diabetes mellitus with diabetic polyneuropathy; K58.9 Irritable bowel syndrome, unspecified; F17.200 Nicotine dependence, unspecified, uncomplicated; Z79.82 Long term (current) use of aspirin; Z79.899 Other long term (current) drug therapy; Z79.4 Long term (current) use of insulin; Z86.73 Personal history of transient ischemic attack (TIA), and cerebral infarction without residual deficits; Z88.5 Allergy status to narcotic agent; Z91.041 Radiographic dye allergy status; Z88.8 Allergy status to other drugs, medicaments and biological substances; Z88.6 Allergy status to analgesic agent; Z98.2 Presence of cerebrospinal fluid drainage device
CPT/HCPCS: 82075; 36415; 80053; 82150; 83690; 85025; 81001; 74018; 74177; 96374; 96372; 99285; J0500; J1170; Q9967; 96360

== ENCOUNTER 2020-03-11 14:49 | Emergency (ER) | payer BC, MEDICARE ==
[2020-03-11 15:34] VITALS: RESP 16
[2020-03-11] MEDS ORDERED: MAGNESIUM CITRATE 296 ML BOTTLE PO ONE (16:16)
--- NOTE | 2020-03-11 16:19 | ED ---
Abdominal Pain HPI - General Chief Complaint: Abdominal Pain Stated Complaint: abdominal pain Time Seen by Provider: 03/11/20 15:46 Source: patient, RN notes reviewed, old records reviewed Mode of arrival: ambulatory Limitations: no limitations - History of Present Illness Initial Comments: Patient is a 64-year-old male presents emergency department today for evaluation with complaints of abdominal pain cramping in nature. He states she's been having this chronic abdominal pain for some time. Patient has been seen in emergency arm in multiple times with no past 2 weeks for similar complaints. His last bowel movement was 3 days ago. He denies any fevers or chills. He reports he did have one episode of vomiting. Patient states that he has not followed up with a surgeon or GI doctor. - Related Data Home Medications Medication Instructions Recorded Confirmed Simvastatin [Zocor] 40 mg PO AC-SUPPER 11/24/15 03/11/20 lisinopriL [Zestril] 20 mg PO BID 11/24/15 03/11/20 Insulin Aspart [NovoLOG Flexpen] 10 units SQ AC-LUNCH 12/15/18 03/11/20 Insulin Aspart [NovoLOG Flexpen] 20 units SQ AC-BID@0900,1800 12/15/18 03/11/20 Insulin Detemir (Levemir) [Levemir] 45 unit SQ DAILY 12/15/18 03/11/20 Pantoprazole [Protonix] 40 mg PO DAILY 05/09/19 03/11/20 ALPRAZolam [Xanax] 0.5 mg PO BID PRN 11/27/19 03/11/20 Aspirin EC [Ecotrin Low Dose] 81 mg PO DAILY 02/15/20 03/11/20 Sucralfate [Carafate] 1 gm PO AC-TID 02/15/20 03/11/20 atenoloL [Atenolol] 25 mg PO DAILY 02/17/20 03/11/20 Previous Rx's Medication Instructions Recorded Acetaminophen Tab [Tylenol] 650 mg PO Q4H PRN #30 tablet 02/19/20 buPROPion XL [Wellbutrin XL] 150 mg PO DAILY #30 tab.er.24h 02/20/20 traZODone HCL [Desyrel] 50 mg PO HS #30 tab 02/20/20 Acetaminophen with Codeine 1 tab PO Q4H PRN 3 Days #18 tab 02/26/20 [Tylenol w/codeine #3] HYDROcodone/APAP 5-325MG [[place] 1 tab PO Q6HR PRN 3 Days #12 tab 02/29/20 5-325] Allergies Allergy/AdvReac Type Severity Reaction Status Date / Time blue dye Allergy Severe Rash/Hives Verified 03/11/20 15:35 codeine Allergy Itching Verified 03/11/20 15:35 naproxen sodium [From Aleve] Allergy Rash/Hives Verified 03/11/20 15:35 ondansetron [From Zofran] Allergy Rash/Hives Verified 03/11/20 15:35 gabapentin AdvReac Abdominal Verified 03/11/20 15:35 Pain naloxegol [From Movantik] AdvReac Nausea & Verified 03/11/20 15:35 Vomiting Review of Systems ROS Statement: Those systems with pertinent positive or pertinent negative responses have been documented in the HPI. ROS Other: All systems not noted in ROS Statement are negative. Past Medical History Past Medical History: Chest Pain / Angina, CVA/TIA, Diabetes Mellitus, GERD/Reflux, Hearing Disorder / Deafness, Hyperlipidemia, Hypertension, Renal Disease Additional Past Medical History / Comment(s): Pt recently admitted to [facility] on 02/17/20 with abdominal pain/possible gastritis/hiatal hernia/possible CKD stage II/severe depression. Other hx: IDDM type II, neuropathy bilateral feet, CVA with no residual, TIA, hydrocephalus with [employer]IO DIVISION LIEUT[employer] shunt, IBS, diverticulitis/bowel resection, hiatal hernia, DJD, occasional cervical pain, migraines, skull/head injury at age 19 with lengthy hospitalization, nephrolithiasis-passed stone on his own, [place] bilaterally. History of Any Multi-Drug Resistant Organisms: None Reported Past Surgical History: Back Surgery, Bowel Resection, Orthopedic Surgery Additional Past Surgical History / Comment(s): 02/18/20 Robot assisted laparoscopy/extensive lysis of adhesions, [employer] LIE[employer] shunt, 2020 R elbow tendon surgery, L knee arthroscopy, L hand amp d/t industrial accident, cervical fusion, bowel resection d/t diverticulitis, EGD, colonoscopy, hemorrhoidectomy, Past Anesthesia/Blood Transfusion Reactions: No Reported Reaction Past Psychological History: Anxiety, Depression Smoking Status: Current every day smoker Past Alcohol Use History: None Reported Past Drug Use History: Marijuana - Past Family History Mother Family Medical History: Cancer Additional Family Medical History / Comment(s): kidney Father Family Medical History: Cancer Additional Family Medical History / Comment(s): pancreatic General Exam - General Exam Comments Initial Comments: 64-year-old male. Alert and oriented 3. No significant distress. Limitations: no limitations General appearance: alert, in no apparent distress Head exam: Present: atraumatic Eye exam: Present: normal appearance, PERRL, EOMI. Absent: scleral icterus, conjunctival injection, periorbital swelling ENT exam: Present: normal exam, mucous membranes moist Neck exam: Present: normal inspection. Absent: tenderness, meningismus, lymphadenopathy Respiratory exam: Present: normal lung sounds bilaterally. Absent: respiratory distress, wheezes, rales, rhonchi, stridor Cardiovascular Exam: Present: regular rate, normal rhythm, normal heart sounds. Absent: systolic murmur, diastolic murmur, rubs, gallop, clicks GI/Abdominal exam: Present: soft, tenderness (Minimal right left lower quadrant tenderness), normal bowel sounds. Absent: distended, guarding, rebound, rigid Extremities exam: Present: normal inspection, full ROM, normal capillary refill. Absent: tenderness, pedal edema, joint swelling, calf tenderness Back exam: Present: normal inspection Neurological exam: Present: alert, oriented X3, CN II-XII intact Course Vital Signs 03/11/20 03/11/20 15:31 17:35 Temperature 98.5 F 98.2 F Pulse Rate 73 70 Respiratory 16 16 Rate Blood Pressure 185/98 168/78 O2 Sat by Pulse 99 99 Oximetry - Reevaluation(s) Reevaluation #1: 03/11/20 16:[address] Tee patient's recent surgeon for removing scar tissue for ileus. She recommends to have the Patient use stool softeners have a bowel movement and follow-up with a GI doctor. She discussed no surgical intervention be needed at this time. Medical Decision Making - Medical Decision Making 64 year old male presents for the 9th time in ED for abdominal pain in past 2 weeks. His last BM was two days ago. He has normal bowel sounds and minimal right tenderness. Discussed with pt surgeon Dr. Mercedes, whom recommends follow up with GI for bowel movement regimen. AT this time pt is hypertensive, but this is no change from previous visits. Patient has normal KUB without free air or obstruction. Stool noted on right lower quadrant. REviewed previous CT. Discussed patient needs to follow up with surgeon and GI per Dr. Mercedes recommendation. Patient has drug seeking behaviour asking for IV narcotics. Discussed this slows GI track and was not given any. DC with bottle of mag citrate to go home. - Radiology Data Radiology results: report reviewed KUB shows overall non obstructive gas pattern. Disposition Clinical Impression: Constipation, Chronic abdominal pain Disposition: HOME SELF-CARE Condition: Good Instructions (If sedation given, give patient instructions): Chronic Abdominal Pain (ED) Additional Instructions: Please use medication as discussed, continue miralax. Surgeon instructs you to follow up with her or GI. Please follow up with family doctor if symptoms have not improved over the next two days. Is patient prescribed a controlled substance at d/c from ED?: No Referrals: Dru Colby MD [Primary Care Provider] - 1-2 days Yamila Guillen MD [STAFF PHYSICIAN] - 1-2 days Janine Mercedes MD [Family Provider] - 1-2 days Time of Disposition: 17:27
--- NOTE | 2020-03-11 17:03 | XR ---
EXAMINATION TYPE: XR KUB DATE OF EXAM: 03/11/2020 COMPARISON: 03/05/2020 HISTORY: Abnormal pain. Constipation. TECHNIQUE: 2 views upright FINDINGS: There is no sign of intestinal obstruction or pneumoperitoneum. Fecal pattern is fairly nor mal. There is ventriculoperitoneal shunt catheter over the mid abdomen. There is no sign of a mass. T here are no pathologic calcifications over the kidneys. IMPRESSION: Fecal pattern is fairly normal. No significant change compared to recent exam. Nonacute a bdomen.
[2020-03-11 18:11] VITALS: BP 168/78; PULSE 70; TEMP 98.2
== END 2020-03-11 17:35 | disposition home or self-care (01) ==
LOC: EC 14:49
DX: K59.00 Constipation, unspecified (principal); G89.29 Other chronic pain; R10.9 Unspecified abdominal pain; K21.9 Gastro-esophageal reflux disease without esophagitis; K58.9 Irritable bowel syndrome, unspecified; E11.42 Type 2 diabetes mellitus with diabetic polyneuropathy; F41.9 Anxiety disorder, unspecified; F32.9 Major depressive disorder, single episode, unspecified; I25.2 Old myocardial infarction; E78.5 Hyperlipidemia, unspecified; I10 Essential (primary) hypertension; Z76.5 Malingerer [conscious simulation]; F17.200 Nicotine dependence, unspecified, uncomplicated; Z79.4 Long term (current) use of insulin; Z79.82 Long term (current) use of aspirin; Z79.899 Other long term (current) drug therapy; Z91.041 Radiographic dye allergy status; Z88.6 Allergy status to analgesic agent; Z88.8 Allergy status to other drugs, medicaments and biological substances; Z86.73 Personal history of transient ischemic attack (TIA), and cerebral infarction without residual deficits; Z90.49 Acquired absence of other specified parts of digestive tract; Z87.442 Personal history of urinary calculi
CPT/HCPCS: 74018; 99284

== ENCOUNTER 2020-03-13 07:15 | Inpatient (IN) | payer BC, MEDICARE ==
[2020-03-13] MEDS ORDERED: HYDROmorphone 1 MG/ML 1 ML SYRINGE IVP STA (07:43)
[2020-03-13] MEDS ORDERED: SODIUM CHLORIDE 0.9% 1,000 ML IV ONE (07:43)
[2020-03-13] MEDS ORDERED: METOCLOPRAMIDE 5 MG/ML 2 ML VIAL IVP STA (07:43)
[2020-03-13] MEDS ORDERED: LORazepam 2 MG/ML INJ IV STA (07:44)
[2020-03-13 07:47] LABS: Albumin 4.5 g/dL (3.5-5.0); Basophils # (A) 0.1 k/uL (0-0.2); Basophils % (A) 1 %; Calcium 9.4 mg/dL (8.4-10.2); Eosinophils # (A) 0.8 k/uL (0-0.7); Eosinophils % (A) 7 %; HGB 18.8 gm/dL (13.0-17.5); Lymphocytes # (A) 1.9 k/uL (1.0-4.8); Lymphocytes % (A) 16 %; MCH 31.5 pg (25.0-35.0); MCHC 33.4 g/dL (31.0-37.0); MCV 94.2 fL (80.0-100.0); Mean Platelet Volume 7.2; Monocytes # (A) 0.8 k/uL (0-1.0); Monocytes % (A) 7 %; Neutrophils % (A) 68 %; Platelet Count 247 k/uL (150-450); Potassium 4.8 mmol/L (3.5-5.1); RBC 5.96 m/uL (4.30-5.90); RDW 13.7 % (11.5-15.5); Total Bilirubin 1.5 mg/dL (0.2-1.3); Total Protein 7.1 g/dL (6.3-8.2); WBC 11.8 k/uL (3.8-10.6)
[2020-03-13 07:48] LABS: HCT 56.2 % (39.0-53.0)
[2020-03-13] MEDS: SODIUM CHLORIDE 0.9% 1,000 ML IV SCH ×2 (07:49→21:19)
--- NOTE | 2020-03-13 07:59 | ED ---
Abdominal Pain HPI - General Source: patient Mode of arrival: wheelchair Limitations: no limitations <Tiffany Abbott - Last Filed: 03/13/20 10:15> <Brinda Magallonah Iman - Last Filed: 03/15/20 14:04> - General Chief Complaint: Abdominal Pain Stated Complaint: recheck- low back pain Time Seen by Provider: 03/13/20 07:22 - History of Present Illness Initial Comments: 64-year-old male presenting today for chief complaint of abdominal pain patient has history of previous resection secondary diverticulitis. Patient states that he also developed a competition of adhesions and had a second surgery performed by his surgeon Dr. Mercedes for lysis of adhesions (02/18/20). Patient states that for the past week he has had lower abdominal pain that seems to be worsening patient states he has not had a bowel movement in 5 days. Patietn endorses nausea, denies vomiting, diarrhea, fevers. Patient denies epigastric pain, ripping tearing back pain. Patient denies SOB. Patient has no additional complaints. He arrives this morning appears uncomfortable, BP elevated. (Tiffany Abbott) - Related Data Home Medications Medication Instructions Recorded Confirmed Simvastatin [Zocor] 40 mg PO AC-SUPPER 11/24/15 03/13/20 lisinopriL [Zestril] 20 mg PO BID 11/24/15 03/13/20 Insulin Aspart [NovoLOG Flexpen] 10 units SQ AC-LUNCH 12/15/18 03/13/20 Insulin Aspart [NovoLOG Flexpen] 20 units SQ AC-BID@0900,1800 12/15/18 03/13/20 Insulin Detemir (Levemir) [Levemir] 45 unit SQ DAILY 12/15/18 03/13/20 Pantoprazole [Protonix] 40 mg PO DAILY 05/09/19 03/13/20 Aspirin EC [Ecotrin Low Dose] 81 mg PO DAILY 02/15/20 03/13/20 atenoloL [Atenolol] 25 mg PO DAILY 02/17/20 03/13/20 Acetaminophen Tab [Tylenol Tab] 1,000 mg PO Q6HR PRN 03/13/20 03/13/20 Previous Rx's Medication Instructions Recorded traZODone HCL [Desyrel] 50 mg PO HS #30 tab 02/20/20 Allergies Allergy/AdvReac Type Severity Reaction Status Date / Time blue dye Allergy Severe Rash/Hives Verified 03/13/20 09:40 codeine Allergy Itching Verified 03/13/20 09:40 naproxen sodium [From Aleve] Allergy Rash/Hives Verified 03/13/20 09:40 ondansetron [From Zofran] Allergy Rash/Hives Verified 03/13/20 09:40 gabapentin AdvReac Abdominal Verified 03/13/20 09:40 Pain naloxegol [From Movantik] AdvReac Nausea & Verified 03/13/20 09:40 Vomiting Review of Systems ROS Other: All systems not noted in ROS Statement are negative. <Tiffany Abbott - Last Filed: 03/13/20 10:15> ROS Other: All systems not noted in ROS Statement are negative. <Jodi Magallon - Last Filed: 03/15/20 14:04> ROS Statement: Those systems with pertinent positive or pertinent negative responses have been documented in the HPI. Past Medical History Past Medical History: Chest Pain / Angina, CVA/TIA, Diabetes Mellitus, GERD/Reflux, Hearing Disorder / Deafness, Hyperlipidemia, Hypertension, Renal Disease Additional Past Medical History / Comment(s): Pt recently admitted to [facility] on 02/17/20 with abdominal pain/possible gastritis/hiatal hernia/possible CKD stage II/severe depression. 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 History of Any Multi-Drug Resistant Organisms: None Reported Past Surgical History: Back Surgery, Bowel Resection, Orthopedic Surgery Additional Past Surgical History / Comment(s): 02/18/20 Robot assisted laparoscopy/extensive lysis of adhesions, [employer] SERV[employer] shunt, 2020 R elbow tendon surgery, L knee arthroscopy, L hand amp d/t industrial accident, cervical fusion, bowel resection d/t diverticulitis, EGD, colonoscopy, hemorrhoidectomy, Past Anesthesia/Blood Transfusion Reactions: No Reported Reaction Past Psychological History: Anxiety, Depression Smoking Status: Current every day smoker Past Alcohol Use History: None Reported Past Drug Use History: Marijuana - Past Family History Mother Family Medical History: Cancer Additional Family Medical History / Comment(s): kidney Father Family Medical History: Cancer Additional Family Medical History / Comment(s): pancreatic <Tiffany Abbott - Last Filed: 03/13/20 10:15> General Exam Limitations: no limitations <Tiffany Abbott - Last Filed: 03/13/20 10:15> - General Exam Comments Initial Comments: General: The patient is awake and alert, appears in significant discomfort Eye: +3 mm pupils are equal, round and reactive to light, extra-ocular movements are intact. No nystagmus. There is normal conjunctiva bilaterally. No signs of icterus. Cardiovascular: There is a regular rate and rhythm. No murmur, rub or gallop is appreciated. Respiratory: Lungs are clear to auscultation, respirations are non-labored, breath sounds are equal. No wheezes, stridor, rales, or rhonchi. Gastrointestinal: Soft, non-distended, diffuse lower abdominal pain to palpation, both right and left sided, there is midline scar below umbilicus. abdomen without masses or organomegaly noted. There is no rebound or guarding present. Musculoskeletal: Normal ROM, no tenderness. Strength 5/5. Sensation intact. Radial pulses equal bilaterally 2+. Neurological: A&O x 3. CN II-XII intact grossly, There are no obvious motor or sensory deficits. Coordination appears grossly intact. Speech is normal. Skin: Skin is warm and dry and no rashes or lesions are noted. Psychiatric: Cooperative, appropriate mood & affect, normal judgment. (Tiffany Abbott) Course <ScarTiffany Parris - Last Filed: 03/13/20 10:15> Vital Signs 03/13/20 03/13/20 07:17 08:35 Temperature 98.1 F Pulse Rate 80 75 Respiratory 18 16 Rate Blood Pressure 186/128 162/95 O2 Sat by Pulse 98 93 L Oximetry - Reevaluation(s) Reevaluation #1: 03/13/20 08:30 pt reevaluated. he is resting more comfortably after ativan and dilaudid improvement of BP 162/95 (Tiffany Abbott) Medical Decision Making - Lab Data Result diagrams: 03/13/20 07:26 03/13/20 07:26 <Tiffany Abbott - Last Filed: 03/13/20 10:15> - Lab Data Result diagrams: 03/14/20 11:45 03/15/20 06:29 <Jodi Magallon - Last Filed: 03/15/20 14:04> - Medical Decision Making 64yo presenting for nausea, constipation, abdominal pain. significant discomfort on exam. Pain to palpation. CBC mild leukocytosis. HGn high. patient appears dry. Given IVF. Pain present but less than on arrival. Patient case discussed with Dr. Mercedes after contacted by Dr Magallon--she recommended admission to medicine with GI consultation. Patient is agreeable to care plan and admission. (Tiffany Abbott) I was available for consultation in the emergency department. The history and physical exam were done by the midlevel provider. I was consulted for this patients care. I reviewed the case with the midlevel provider and based on their presentation of the patient, I agree with the assessment, medical decision making and plan of care as documented. I discussed the case with Dr. Mercedes who recommended admission to medicine with gi consultation. Chart was dictated using [employer] dictation software. Attempts were made to correct any dictation errors however some typographical errors may persist. Patient was seen during a national state of emergency due to the Covid-19 pandemic. (Jodi Magallon) - Lab Data Lab Results 03/13/20 03/13/20 03/13/20 Range/Units 07:26 07:26 07:26 WBC 11.8 H (3.8-10.6) k/uL RBC 5.96 H (4.30-5.90) m/uL Hgb 18.8 H (13.0-17.5) gm/dL Hct 56.2 H (39.0-53.0) % MCV 94.2 (80.0-100.0) fL MCH 31.5 (25.0-35.0) pg MCHC 33.4 (31.0-37.0) g/dL RDW 13.7 (11.5-15.5) % Plt Count 247 (150-450) k/uL Neutrophils % 68 % Lymphocytes % 16 % Monocytes % 7 % Eosinophils % 7 % Basophils % 1 % Neutrophils # 8.0 H (1.3-7.7) k/uL Lymphocytes # 1.9 (1.0-4.8) k/uL Monocytes # 0.8 (0-1.0) k/uL Eosinophils # 0.8 H (0-0.7) k/uL Basophils # 0.1 (0-0.2) k/uL Sodium 138 (137-145) mmol/L Potassium 4.8 (3.5-5.1) mmol/L Chloride 106 (98-107) mmol/L Carbon Dioxide 21 L (22-30) mmol/L Anion Gap 11 mmol/L BUN 14 (9-20) mg/dL Creatinine 1.09 (0.66-1.25) mg/dL Est GFR (CKD-EPI)AfAm 82 (>60 ml/min/1.73 sqM) Est GFR (CKD-EPI)NonAf 71 (>60 ml/min/1.73 sqM) Glucose 187 H (74-99) mg/dL Calcium 9.4 (8.4-10.2) mg/dL Total Bilirubin 1.5 H (0.2-1.3) mg/dL AST 21 (17-59) U/L ALT 22 (4-49) U/L Alkaline Phosphatase 112 (38-126) U/L Troponin I <0.012 (0.000-0.034) ng/mL Total Protein 7.1 (6.3-8.2) g/dL Albumin 4.5 (3.5-5.0) g/dL Lipase 50 (23-300) U/L Disposition Time of Disposition: 20:00 Decision to Admit Reason: Admit from EC Decision Date: 03/13/20 Decision Time: 09:20 <Tiffany Abbott - Last Filed: 03/13/20 10:15> <Jodi Magallon - Last Filed: 03/15/20 14:04> Clinical Impression: Intractable abdominal pain, Dilatation of colon, Nausea, Constipation, Dehydration Disposition: ADMITTED IP TO THIS [facility] Condition: Stable
--- NOTE | 2020-03-13 08:44 | CT ---
EXAMINATION TYPE: CT abdomen pelvis w con DATE OF EXAM: 03/13/2020 REFERENCE: Previous study dated 03/05/2020 HISTORY: abdominal pain, acute, nonlocalized HISTORY: Abdominal pain, acute and nonlocalized CT DLP: 1226.5 mGy Automated exposure control for dose reduction was used. TECHNIQUE: Helical acquisition through the abdomen and pelvis was obtained following the oral ingesti on of without Oral Contrast and following intravenous administration of 100 ml mL of Isovue 300. The data was reformatted in axial, coronal and sagittal projections. FINDINGS: There is minimal dependent atelectasis in the dependent portions of the lungs. There is a trace of pleural fluid present bilaterally. There is no pericardial fluid. The heart is mildly enlarg ed. There is a small, sliding hiatal hernia. Within the abdomen, the liver, spleen and gallbladder are normal. Both adrenal glands are normal. There are simple appearing cysts seen arising from both kidneys. The pancreas is unremarkable. There is no significant retroperitoneal, iliac or inguinal adenopathy. The bladder wall is slightly thickened but the bladder is not distended. There is been a previous sigmoid resection. This time there is no significant diverticular change and there is no radiographic evidence of diverticulitis. The right-sided colon is air-filled and mildly distended. The appendix is also air-filled. There is a questionable, 3.6 cm area of annular narrowing in the mid descending colon. This appears to be at the level of the transition from dilated colon to a more normal appearing colon. There continue be minimal distention of the jejunum in the left upper quadrant. This is not as obviou s on the previous study.. There is a BARGE MASTER shunt overlying the right anterior abdominal wall and it is coiled within the pelvis. There is no free fluid and no free air identified. There is degenerative disc disease and hypertrophic spondylosis within the lower dorsal spine. IMPRESSION: 1. TINY, BILATERAL PLEURAL EFFUSIONS. 2. SLIDING HIATAL HERNIA. 3. SIMPLE APPEARING CYSTS IN BOTH KIDNEYS. 4. IMPROVED APPEARANCE OF THE SMALL BOWEL. 5. POSTSURGICAL CHANGE INVOLVING THE SIGMOID COLON. THERE IS A QUESTIONABLE AREA OF ANNULAR NARROWING IN THE MID DESCENDING COLON MEASURING 3.6 CM. THE COLON PROXIMAL TO THIS IS MILDLY DILATED AIR-FILLE D. DIRECT VISUALIZATION WOULD BE SUGGESTED TO EXCLUDE MALIGNANCY. 6. DEGENERATIVE CHANGES WITHIN THE SPINE. 7. CONTINUED MINIMAL DILATATION OF A JEJUNAL LOOP IN THE LEFT UPPER QUADRANT, SLIGHTLY IMPROVED FROM PREVIOUS.
[2020-03-13] MEDS ORDERED: NALOXONE 0.4 MG/ML 1 ML VIAL IV PRN (09:27)
[2020-03-13] MEDS ORDERED: ACETAMINOPHEN TAB 500 MG TAB PO PRN (12:23)
[2020-03-13] MEDS: INSULIN ASPART (NovoLOG) 100 UNIT/ML VIAL SQ SCH ×2 (12:44→17:36)
[2020-03-13] MEDS: lisinopriL 20 MG TAB PO SCH ×2 (13:08→20:46)
[2020-03-13] MEDS: polyethylene glycoL 3350 17 GM POWD.PACK PO SCH (13:08)
[2020-03-13] MEDS: atenoloL 25 MG TAB PO SCH (13:11)
[2020-03-13] MEDS: DOCUSATE 100 MG CAP PO SCH ×2 (13:11→20:46)
[2020-03-13] MEDS: HYDROcodone/APAP 5-325MG 1 EACH TAB PO PRN ×2 (13:13→19:48)
[2020-03-13] MEDS: HYDROmorphone 0.5 MG/0.5 ML SYRINGE IVP PRN ×3 (13:26→21:19)
[2020-03-13] MEDS: ATORVASTATIN 20 MG TAB PO SCH (17:33)
[2020-03-13 20:40] LABS: Glucose,Whole Blood 124 mg/dL (75-99)
[2020-03-13] MEDS: traZODone HCL 50 MG TAB PO SCH (20:46)
[2020-03-13] MEDS: SENNOSIDES 8.6 MG TAB PO SCH (21:19)
--- NOTE | 2020-03-14 00:31 | P.HPIM ---
History of Present Illness H&P Date: 03/13/20 Chief Complaint: abdominal pain Patient is a 64-year-old male with a known history of hypertension, diabetes type 2, GERD, hearing disorder, hyperlipidemia, depression, bilateral diabetic peripheral neuropathy, hydrocephalus status post HYDRAULIC BARKER OPERATOR shunt, IBS, history of di verticulitis/bowel resection multiple medical problems including anxiety/depression currently with a smoker came to ER with complaints of abdominal pain. Patient recently had laparoscopic lysis of adhesions about [address] Mercedes. patient has been having abdominal pain mainly right lower quadrant which has been worsening for the past 1 week. Patient does have nausea vomiting and con stipation. Denied any fever or chills. Denies any chest pain. No cough or sputum production. Denied any recent illnesses otherwise. Patient blood pressure was elevated on admission with BP 186/128. CT of the abdomen pelvis was done tiny bilateral pleural effusions. Sliding hiatal edema. Simple appearing cysts in both kidneys. Improved appearance of the small bowel. Postsurgical involving the sigmoid colon. There is questionable area of narrowing in the descending colon measuring 3.6 cm. The colon proximal to this is mildly dilated air-filled. There accumulation will be suggested to exclude malignancy. Degenerative changes within the spine. Continued minimal dilation of the jejunal loop in the left upper quadrant slightly improved from previous Laboratory data showed WBC 11.8, hemoglobin 18.8 and platelets 247 BUN 14 and creatinine 1.09 Blood sugar is 187 Total bilirubin is 1.4 liver enzymes his AST ALT and alk phos within normal limits Troponin less than 0.012 Review of Systems Constitutional: Patient denies any fever or chills . No generalized weakness or weight loss. Abdomen: patient does have nausea vomiting and abdominal pain.no diarrhea. Denied constipation.. Cardiovascular: Patient denies any chest pain or short of breath no palpitations. Respiratory: patient denied any cough is from production. No shortness of breath Neurologic: Patient denied any numbness or tingling headache. Musculoskeletal: Patient denies any complaints of joint swelling or deformity. Skin: Negative Psychiatric: Negative Endocrine: No heat or cold intolerance. No recent weight gain. Genitourinary: No dysuria or hematuria. All other 14 point ROS negative except the above Past Medical History Past Medical History: Chest Pain / Angina, CVA/TIA, Diabetes Mellitus, GERD /Reflux, Hearing Disorder / Deafness, Hyperlipidemia, Hypertension, Renal Disease Additional Past Medical History / Comment(s): Pt recently admitted to [facility] on 02/17/20 with abdominal pain/possible gastritis/hiatal hernia/possible CKD stage II/severe depression. Other hx: IDDM type II, neuropathy bilateral feet, CVA with no residual, TIA, hydrocephalus with HYDRAULIC BARKER OPERATOR shunt, IBS, diverticulitis/bowel resection, hiatal hernia, DJD, occasional cervical pain, migraines, skull/head injury at age 19 with lengthy hospitalization, nephrolithiasis-passed stone on his own, [place] bilaterally. History of Any Multi-Drug Resistant Organisms: None Reported Past Surgical History: Back Surgery, Bowel Resection, Orthopedic Surgery Additional Past Surgical History / Comment(s): 02/18/20 Robot assisted laparoscopy/extensive lysis of adhesions, HYDRAULIC BARKER OPERATOR shunt, 2020 R elbow tendon surgery, L knee arthroscopy, L hand amp d/t industrial accident, cervical fusion, bowel resection d/t diverticulitis, EGD, colonoscopy, hemorrhoidectomy, Past Anesthesia/Blood Transfusion Reactions: No Reported Reaction Past Psychological History: Anxiety, Depression Additional Psychological History / Comment(s): Pt resides with his spouse. He is independent. He drives. Pt states his depression/anxiety have increased over past 3-4 months. He states he feels hopeless for the present/future and states lately he has had suicidal thoughts off and on. States he thought of suicide this morning-"Plan A: I would dump all my pills into a bowl of ice cream and eat it. 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 Smoking Status: Current every day smoker Past Alcohol Use History: None Reported Additional Past Alcohol Use History / Comment(s): Pt started smoking in 1970 and is a ppd smoker. Pt has not drank alcohol in 30 yrs-he used to drink 1/5 a day. Past Drug Use History: Marijuana Additional Drug Use History / Comment(s): occasional use - Past Family History Mother Family Medical History: Cancer Additional Family Medical History / Comment(s): kidney Father Family Medical History: Cancer Additional Family Medical History / Comment(s): pancreatic Medications and Allergies Home Medications Medication Instructions Recorded Confirmed Type RX: Simvastatin [Zocor] 40 mg PO AC-SUPPER 11/24/15 03/13/20 History RX: lisinopriL [Zestril] 20 mg PO BID 11/24/15 03/13/20 History RX: Insulin Aspart [NovoLOG 10 units SQ AC-LUNCH 12/15/18 03/13/20 History Flexpen] RX: Insulin Aspart [NovoLOG 20 units SQ AC-BID@0900,1800 12/15/18 03/13/20 History Flexpen] RX: Insulin Detemir (Levemir) 45 unit SQ DAILY 12/15/18 03/13/20 History [Levemir] RX: Pantoprazole [Protonix] 40 mg PO DAILY 05/09/19 03/13/20 History RX: Aspirin EC [Ecotrin Low Dose] 81 mg PO DAILY 02/15/20 03/13/20 History RX: atenoloL [Atenolol] 25 mg PO DAILY 02/17/20 03/13/20 History RX: traZODone HCL [Desyrel] 50 mg PO HS #30 tab 02/20/20 03/13/20 Rx Acetaminophen Tab [Tylenol Tab] 1,000 mg PO Q6HR PRN 03/13/20 03/13/20 History Allergies Allergy/AdvReac Type Severity Reaction Status Date / Time blue dye Allergy Severe Rash/Hives Verified 03/13/20 09:40 codeine Allergy Itching Verified 03/13/20 09:40 naproxen sodium [From Aleve] Allergy Rash/Hives Verified 03/13/20 09:40 ondansetron [From Zofran] Allergy Rash/Hives Verified 03/13/20 09:40 gabapentin AdvReac Abdominal Verified 03/13/20 09:40 Pain naloxegol [From Movantik] AdvReac Nausea & Verified 03/13/20 09:40 Vomiting Physical Exam Vitals: Vital Signs Temp Pulse Pulse Resp BP BP Pulse Ox 03/13/20 11:36 70 16 03/13/20 10:39 98.3 F 71 16 150/90 96 03/13/20 10:29 97.8 F 71 18 155/93 95 03/13/20 08:35 75 16 162/95 93 L 03/13/20 07:17 98.1 F 80 18 186/128 98 Intake and Output 03/12/20 03/13/20 03/13/20 22:59 06:59 14:59 Other: Voiding Method Toilet # Voids 1 Weight 85.275 kg PHYSICAL EXAMINATION: Patient is lying in the bed comfortably, no acute distress, awake alert and oriented.. HEENT: Normocephalic. Neck is supple. Pupils reactive. Nostrils clear. Oral cavity is moist. Ears reveal no drainage. Neck reveals no JVD, carotid bruits, or thyromegaly. CHEST EXAMINATION: Trachea is central. Symmetrical expansion.bibasilar diminished air entry. Lung silva clear to auscultation and percussion. CARDIAC: Normal S1, S2 with no gallops. No murmurs ABDOMEN: Soft. tenderness of the right lower quadrantBowel sounds normal. No organomegaly. No abdominal bruits. Extremities: reveal no edema. No clubbing or cyanosis Neurologically awake, alert, oriented x3 with well-coordinated movements. No focal deficits noted Skin: No rash or skin lesions. Psychiatric: Coperative. Nonsuicidal Musculoskeletal: No joint swelling or deformity. Normal range of motion. Results CBC & Chem 7: 03/13/20 07:26 03/13/20 07:26 Labs: Abnormal Lab Results - Last 24 Hours (Table) 03/13/20 03/13/20 Range/Units 07:26 07:26 WBC 11.8 H (3.8-10.6) k/uL RBC 5.96 H (4.30-5.90) m/uL Hgb 18.8 H (13.0-17.5) gm/dL Hct 56.2 H (39.0-53.0) % Neutrophils # 8.0 H (1.3-7.7) k/uL Eosinophils # 0.8 H (0-0.7) k/uL Carbon Dioxide 21 L (22-30) mmol/L Glucose 187 H (74-99) mg/dL Total Bilirubin 1.5 H (0.2-1.3) mg/dL Thrombosis Risk Factor Assmnt - DVT/VTE Prophylaxis DVT/VTE Prophylaxis: Pharmacologic Prophylaxis ordered - Choose All That Apply Any of the Below Risk Factors Present?: Yes Each Factor Represents 1 point: History of prior major surgery (<1month), Obesity (BMI >25) Each Risk Factor Represents 2 Points: Age 61-74 years Thrombosis Risk Factor Assessment Total Risk Factor Score: 4 Thrombosis Risk Factor Assessment Level: Moderate Risk Assessment and Plan Assessment: abdominal pain secondary to ileus with dilated bowel loops. Narrowing of the middescending colon measuring3.6 cm. recent history of lysis of adhesions and laparoscopic History of diverticulitis Hypertension and diabetes type 2 Diabetic peripheral neuropathy Hearing disorder/deafness Hyperlipidemia Severe depression History of CVA/TIA with no residual weakness History of hydrocephalus with HYDRAULIC BARKER OPERATOR shunt IBS History of bowel resection due to diverticulitis Hiatal hernia Reason joint disease History of migraine headaches Skull/head injury at is 19 with a lengthy hospitalization. Anxiety/depression Currently everyday smoker DVT prophylaxis Plan: Patient will be continued on IV hydration. Currently the clear liquid diet as tolerated and GI and Gen. surgery was consulted. Continue with home medications and insulin sliding scale for better blood sugar control. Monitor platelets and follow closely. Repeat CBC and BMP tomorrow. Further recommendations based on the clinical course. Prognosis is guarded. Time with Patient: Greater than 30
[2020-03-14] MEDS: HYDROmorphone 0.5 MG/0.5 ML SYRINGE IVP PRN ×6 (00:38→21:11)
[2020-03-14] MEDS: atenoloL 25 MG TAB PO SCH (04:13)
[2020-03-14 05:39] LABS: Glucose,Whole Blood 146 mg/dL (75-99)
[2020-03-14 06:37] LABS: Glucose,Whole Blood 139 mg/dL (75-99)
[2020-03-14] MEDS: lisinopriL 20 MG TAB PO SCH ×2 (06:40→21:08)
[2020-03-14] MEDS: INSULIN DETEMIR (LEVEMIR) 100 UNIT/ML SYR SQ SCH (07:34)
[2020-03-14] MEDS: INSULIN ASPART (NovoLOG) 100 UNIT/ML VIAL SQ SCH ×4 (07:34→18:33)
[2020-03-14] MEDS: ASPIRIN 81 MG PO SCH (07:40)
[2020-03-14] MEDS: DOCUSATE 100 MG CAP PO SCH ×2 (07:40→21:08)
[2020-03-14] MEDS: PANTOPRAZOLE 40 MG TABLET PO SCH (07:40)
[2020-03-14] MEDS: SENNOSIDES 8.6 MG TAB PO SCH (07:41)
[2020-03-14] MEDS: polyethylene glycoL 3350 17 GM POWD.PACK PO SCH (07:41)
[2020-03-14] MEDS ORDERED: LABETALOL 200 MG TAB PO STA (07:42)
--- NOTE | 2020-03-14 08:14 | XR ---
EXAMINATION TYPE: XR abdomen 2V DATE OF EXAM: 03/14/2020 COMPARISON: 03/11/2020 HISTORY: Abdomen pain, constipation TECHNIQUE: Abdomen is examined in the upright view. Supine views obtained. FINDINGS: Nonspecific bowel gas is present within small bowel loops as well as the colon. Fecal debri s is in the ascending colon. Psoas margins are normal. No free air is evident. There are couple of di fferential air-fluid levels within the left midabdomen. Partial small bowel obstruction can be consid ered. Ileus and gastroenteritis could be considered. Patient's shunt catheter tip is currently in the right lower quadrant. IMPRESSION: 1. Nonspecific bowel gas pattern. Couple of air-fluid levels within the left midabdomen are present. Minimal partial small bowel obstruction, while unlikely, is not entirely excluded. Follow-up is sanjuanita mmended. Differential diagnosis could include ileus and gastroenteritis. A Red level critical message alert has been initiated for Hamzah Wood via the [employer] Critical Results System on 03/14/2020 8:11 AM. This message alert has been sent to Hamzah Wood v ia the preferences provided by the clinician for the receipt of Radiology Critical Findings. Message ID [id number].
[2020-03-14] MEDS: SODIUM CHLORIDE 0.9% 1,000 ML IV SCH (10:05)
--- NOTE | 2020-03-14 11:32 | P.GSCN ---
History of Present Illness Consult date: 03/14/20 Reason for Consult: abdominal pain Requesting physician: Anu Almaguer History of present illness: CHIEF COMPLAINT: abdominal pain HISTORY OF PRESENT ILLNESS: 64 year old male who presented to the ER with a chief complaint of abdominal pain. Dr Mercedes evaluated the patient at the bedside this morning. He complains of right lower quadrant abdominal pain. He has a history of robotic-assisted liver scopic lysis of adhesions performed on 02/18/2020. He also has a history of a bowel resection performed by Dr. Lasha Glez over 5 years ago for diverticulitis. PAST MEDICAL HISTORY: See list. PAST SURGICAL HISTORY: See list. MEDICATIONS: See list. ALLERGIES: See list. SOCIAL HISTORY: No illicit drug use. REVIEW OF SYSTEMS: CONSTITUTIONAL: Denies fever or chills. HEENT: Denies blurred vision, vision changes, or eye pain. Denies hemoptysis ENDOCRINE: Denies heat or cold intolerance. CARDIOVASCULAR: Denies chest pain or pressure. RESPIRATORY: No shortness of breath. GASTROINTESTINAL: See HPI for pertinent findings. NEURO: Denies history of seizures. PSYCH: No depression or suicidal ideation HEMATOLOGIC: Denies bleeding disorders. LYMPHATIC: The patient denies any lumps and bumps around the neck. GENITOURINARY: Denies any blood in urine or increased urinary frequency. MUSCULOSKELETAL: Denies myalgias. Denies joint swelling. Denies decreased range of motion beyond patients baseline. SKIN: Denies pruitis. Denies rash. PHYSICAL EXAM: VITAL SIGNS: Reviewed GENERAL: Well-developed in no acute distress. HEENT: No sclera icterus. Extraocular movements grossly intact. Moist buccal mucosa. Head is atraumatic, normocephalic. Hears conversational speech. No nasal drainage. NECK: Supple without lymphadenopathy. CHEST: Non-labored respirations and equal bilateral excursions. CARDIOVASCULAR: Regular rate with regular rhythm. Palpable 2+ radial pulses. ABDOMEN: Soft. Nondistended. Midline incision healing well. Tenderness to right lower quadrant. MUSCULOSKELETAL: No clubbing or cyanosis. NEUROLOGIC: No focal or lateralizing signs. Cranial nerves II through XII grossly intact. PSYCH: Appropriate affect. Alert and oriented to person, place and time. SKIN: Well perfused. Good skin turgor. LABORATORY DATA: WBC 11.8. Hemoglobin 18.8. Platelet count 247. Bilirubin 1.5. AST 21. ALT 22. Alkaline phosphatase 112. IMAGING: CT abdomen and pelvis per radiology dictation reveals tiny bilateral pleural effusions, sliding hiatal hernia, simple appearing cysts in both kidneys, improved appearance of the small bowel, postsurgical changes involving the sigmoid colon. Questionable area of annular narrowing in the mid descending colon measuring 3.6 cm. Continued minimal dilatation of the jejunal loop in the left upper quadrant slightly improved from previous. ASSESSMENT: 1. Chronic right lower quadrant abdominal pain 2. History of PARA OPERATOR shunt 3. History of bowel resection secondary to diverticulitis 4. History of multiple abdominal surgeries secondary to peritoneal adhesions PLAN: -Continue diet as tolerated -US gallbladder -Dr. Mercedes recommends patient to follow up with his neurosurgeon outpatient regarding his PARA OPERATOR shunt to see if there are any options such as removing his atilio nt due to continued forming abdominal adhesions near his shunt -No surgical intervention recommended at this time Nurse practitioner note has been reviewed by physician. Signing provider agrees with the documented findings, assessment, and plan of care. Past Medical History Past Medical History: Chest Pain / Angina, CVA/TIA, Diabetes Mellitus, GERD/Reflux, Hearing Disorder / Deafness, Hyperlipidemia, Hypertension, Renal Disease Additional Past Medical History / Comment(s): Pt recently admitted to [facility] on 02/17/20 with abdominal pain/possible gastritis/hiatal hernia/possible CKD stage II/severe depression. Other hx: IDDM type II, neuropathy bilateral feet, CVA with no residual, TIA, hydrocephalus with PARA OPERATOR shunt, IBS, diverticulitis/bowel resection, hiatal hernia, DJD, occasional cervical pain, migraines, skull/head injury at age 19 with lengthy hospitalization, nephrolithiasis-passed stone on his own, [place] bilaterally. History of Any Multi-Drug Resistant Organisms: None Reported Past Surgical History: Back Surgery, Bowel Resection, Orthopedic Surgery Additional Past Surgical History / Comment(s): 02/18/20 Robot assisted laparoscopy/extensive lysis of adhesions, PARA OPERATOR shunt, 2020 R elbow tendon surgery, L knee arthroscopy, L hand amp d/t industrial accident, cervical fusion, bowel resection d/t diverticulitis, EGD, colonoscopy, hemorrhoidectomy, Past Anesthesia/Blood Transfusion Reactions: No Reported Reaction Past Psychological History: Anxiety, Depression Additional Psychological History / Comment(s): Pt resides with his spouse. He is independent. He drives. Pt states his depression/anxiety have increased over past 3-4 months. He states he feels hopeless for the present/future and states lately he has had suicidal thoughts off and on. States he thought of suicide this morning-"Plan A: I would dump all my pills into a bowl of ice cream and eat it. 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 Smoking Status: Current every day smoker Past Alcohol Use History: None Reported Additional Past Alcohol Use History / Comment(s): Pt started smoking in 1970 and is a ppd smoker. Pt has not drank alcohol in 30 yrs-he used to drink 1/5 a day. Past Drug Use History: Marijuana Additional Drug Use History / Comment(s): occasional use - Past Family History Mother Family Medical History: Cancer Additional Family Medical History / Comment(s): kidney Father Family Medical History: Cancer Additional Family Medical History / Comment(s): pancreatic Medications and Allergies Home Medications Medication Instructions Recorded Confirmed Type Simvastatin [Zocor] 40 mg PO AC-SUPPER 11/24/15 03/13/20 History lisinopriL [Zestril] 20 mg PO BID 11/24/15 03/13/20 History Insulin Aspart [NovoLOG Flexpen] 10 units SQ AC-LUNCH 12/15/18 03/13/20 History Insulin Aspart [NovoLOG Flexpen] 20 units SQ AC-BID@0900,1800 12/15/18 03/13/20 History Insulin Detemir (Levemir) [Levemir] 45 unit SQ DAILY 12/15/18 03/13/20 History Pantoprazole [Protonix] 40 mg PO DAILY 05/09/19 03/13/20 History Aspirin EC [Ecotrin Low Dose] 81 mg PO DAILY 02/15/20 03/13/20 History atenoloL [Atenolol] 25 mg PO DAILY 02/17/20 03/13/20 History traZODone HCL [Desyrel] 50 mg PO HS #30 tab 02/20/20 03/13/20 Rx Acetaminophen Tab [Tylenol Tab] 1,000 mg PO Q6HR PRN 03/13/20 03/13/20 History Allergies Allergy/AdvReac Type Severity Reaction Status Date / Time blue dye Allergy Severe Rash/Hives Verified 03/13/20 09:40 codeine Allergy Itching Verified 03/13/20 09:40 naproxen sodium [From Aleve] Allergy Rash/Hives Verified 03/13/20 09:40 ondansetron [From Zofran] Allergy Rash/Hives Verified 03/13/20 09:40 gabapentin AdvReac Abdominal Verified 03/13/20 09:40 Pain naloxegol [From Movantik] AdvReac Nausea & Verified 03/13/20 09:40 Vomiting Surgical - Exam Vital Signs Temp Pulse Resp BP Pulse Ox 98.1 F 80 18 186/128 98 03/13/20 07:17 03/13/20 07:17 03/13/20 07:17 03/13/20 07:17 03/13/20 07:17 Results - Labs 03/13/20 07:26 03/13/20 07:26 Abnormal Lab Results - Last 24 Hours (Table) 03/13/20 03/14/20 03/14/20 Range/Units 20:37 05:37 06:35 POC Glucose (mg/dL) 124 H 146 H 139 H (75-99) mg/dL
--- NOTE | 2020-03-14 11:32 | US ---
EXAMINATION TYPE: US gallbladder DATE OF EXAM: 03/14/2020 COMPARISON: CT 03/13/20, ultrasound 02/03/2020 CLINICAL HISTORY: abdominal pain. EXAM MEASUREMENTS: Liver Length: 16.2 cm Gallbladder Wall: 0.2 cm CBD: 0.5 cm Right Kidney: 10.6 x 5.8 x 5.8 cm Pancreas: Partially Obscured by bowel gas Liver: Partially Obscured by bowel gas Gallbladder: No stones seen Evidence for sonographic Schaffer's sign: No CBD: wnl Right Kidney: 2 superior pole cysts: 1) 2.3 x 2.2 x 2.2 cm 2) 5.6 x 4.7 x 5.0 cm IMPRESSION: 1. Limited exam due to bowel gas. 2. Right renal cysts present previously.
[2020-03-14 12:00] LABS: Basophils # (A) 0.1 k/uL (0-0.2); Basophils % (A) 1 %; Eosinophils # (A) 0.5 k/uL (0-0.7); Eosinophils % (A) 6 %; HCT 47.8 % (39.0-53.0); Lymphocytes # (A) 1.5 k/uL (1.0-4.8); Lymphocytes % (A) 16 %; MCH 30.2 pg (25.0-35.0); MCHC 32.5 g/dL (31.0-37.0); Mean Platelet Volume 7.2; Monocytes # (A) 0.5 k/uL (0-1.0); Monocytes % (A) 6 %; Neutrophils # (A) 6.5 k/uL (1.3-7.7); Neutrophils % (A) 70 %; Platelet Count 196 k/uL (150-450); RBC 5.14 m/uL (4.30-5.90); RDW 13.4 % (11.5-15.5); WBC 9.3 k/uL (3.8-10.6)
[2020-03-14 12:09] LABS: HGB 15.5 gm/dL (13.0-17.5)
[2020-03-14 12:14] LABS: Glucose,Whole Blood 155 mg/dL (75-99)
[2020-03-14 14:25] VITALS: BMI 28.5
[2020-03-14] MEDS ORDERED: amLODIPine 5 MG TAB PO SCH (14:30)
[2020-03-14] MEDS: amLODIPine 2.5 MG TAB PO SCH (15:02)
[2020-03-14 17:10] LABS: Glucose,Whole Blood 148 mg/dL (75-99)
[2020-03-14] MEDS: ATORVASTATIN 20 MG TAB PO SCH (17:11)
[2020-03-14 18:30] LABS: Glucose,Whole Blood 200 mg/dL (75-99)
--- NOTE | 2020-03-14 20:48 | P.CONS ---
History of Present Illness - Reason for Consult Consult date: 03/14/20 Abdominal pain, constipation Requesting physician: Hamzah Wood - Chief Complaint Abdominal pain - History of Present Illness 64-year-old female with multiple medical comorbidities including hypertension, diabetes mellitus, peripheral neuropathy, prior sigmoid resection for diverticulitis, anxiety and depression, GERD, hyperlipidemia, and irritable bowel syndrome with multiple recent hospitalizations with complaints of abdominal pain. He presented back to the emergency department for further evaluation of abdominal pain. Recently the patient underwent lysis of adhesions during exploratory laparotomy with surgical service earlier in the month. He is continued to have abdominal pain described as sharp, crampy, and intense. Pain is diffuse across his abdomen but worse in the right lower quadrant. Last colonoscopy was performed in 2019 and significant for diverticulosis and a tubular adenoma. He had an EGD in 12/2018 for GERD with findings of a hiatal hernia, gastritis duodenitis. On presentation computed tomography scan of the abdomen showed tiny bilateral pleural effusions, small hiatal hernia, hematemesis as well as postsurgical changes involving the sigmoid colon and questionable narrowing of the descending colon. The patient does suffer from chronic constipation and has been on numerous medications for treatment past. Currently he has needed and not regularly. Laboratory evaluation on presentation significant for WBC 9.3, hemoglobin 15.5, 4 196,000, hematocrit 5, alkaline phosphatase 112, AST 21 and ALT 22. Ultrasound performed in evaluation negative for cholelithiasis or CBD dilation. Review of Systems REVIEW OF SYSTEMS: CONSTITUTIONAL: Denies any fevers, chills, weight change or fatigue. CARDIOVASCULAR: Denies any chest pain, palpitations high or low blood pressures RESPIRATORY: Denies any shortness of breath, hemoptysis or cough. GENITOURINARY: No dysuria or hematuria. MUSCULOSKELETAL: No weakness reported. SKIN: Denies any new rashes or lesions, jaundice or pallor. PSYCHIATRIC: He does have a history of depression and anxiety. NEUROLOGY: Denies headache, denies any new focal deficits. EARS/NOSE/THROAT: No recent hearing change, congestion, nasal discharge or sore throat. EYES: No pain in eyes, discharge or change in vision. GASTROINTESTINAL: As per HPI. Past Medical History Past Medical History: Chest Pain / Angina, CVA/TIA, Diabetes Mellitus, GERD/Reflux, Hearing Disorder / Deafness, Hyperlipidemia, Hypertension, Renal Disease Additional Past Medical History / Comment(s): Pt recently admitted to [facility] on 02/17/20 with abdominal pain/possible gastritis/hiatal hernia/possible CKD stage II/severe depression. Other hx: IDDM type II, neuropathy bilateral feet, CVA with no residual, TIA, hydrocephalus with TRAFFIC RATE CLERK shunt, IBS, diverticulitis/bowel resection, hiatal hernia, DJD, occasional cervical pain, migraines, skull/head injury at age 19 with lengthy hospitalization, nephrolithiasis-passed stone on his own, RED CLIFF bilaterally. History of Any Multi-Drug Resistant Organisms: None Reported Past Surgical History: Back Surgery, Bowel Resection, Orthopedic Surgery Additional Past Surgical History / Comment(s): 02/18/20 Robot assisted laparoscopy/extensive lysis of adhesions, TRAFFIC RATE CLERK shunt, 2020 R elbow tendon surgery, L knee arthroscopy, L hand amp d/t industrial accident, cervical fusion, bowel resection d/t diverticulitis, EGD, colonoscopy, hemorrhoidectomy, Past Anesthesia/Blood Transfusion Reactions: No Reported Reaction Past Psychological History: Anxiety, Depression Additional Psychological History / Comment(s): Pt resides with his spouse. He is independent. He drives. Pt states his depression/anxiety have increased over past 3-4 months. He states he feels hopeless for the present/future and states lately he has had suicidal thoughts off and on. States he thought of suicide this morning-"Plan A: I would dump all my pills into a bowl of ice cream and eat it. And if that didn't work I would inject an orange with all of my insulin and eat it" ST[employer]ED [employer]ASS INST[employer]ER caring for pt is aware. Smoking Status: Current every day smoker Past Alcohol Use History: None Reported Additional Past Alcohol Use History / Comment(s): Pt started smoking in 1970 and is a ppd smoker. Pt has not drank alcohol in 30 yrs-he used to drink 1/5 a day. Past Drug Use History: Marijuana Additional Drug Use History / Comment(s): occasional use - Past Family History Mother Family Medical History: Cancer Additional Family Medical History / Comment(s): kidney Father Family Medical History: Cancer Additional Family Medical History / Comment(s): pancreatic Medications and Allergies Home Medications Medication Instructions Recorded Confirmed Type Simvastatin [Zocor] 40 mg PO AC-SUPPER 11/24/15 03/13/20 History lisinopriL [Zestril] 20 mg PO BID 11/24/15 03/13/20 History Insulin Aspart [NovoLOG Flexpen] 10 units SQ AC-LUNCH 12/15/18 03/13/20 History Insulin Aspart [NovoLOG Flexpen] 20 units SQ AC-BID@0900,1800 12/15/18 03/13/20 History Insulin Detemir (Levemir) [Levemir] 45 unit SQ DAILY 12/15/18 03/13/20 History Pantoprazole [Protonix] 40 mg PO DAILY 05/09/19 03/13/20 History Aspirin EC [Ecotrin Low Dose] 81 mg PO DAILY 02/15/20 03/13/20 History atenoloL [Atenolol] 25 mg PO DAILY 02/17/20 03/13/20 History traZODone HCL [Desyrel] 50 mg PO HS #30 tab 02/20/20 03/13/20 Rx Acetaminophen Tab [Tylenol Tab] 1,000 mg PO Q6HR PRN 03/13/20 03/13/20 History Allergies Allergy/AdvReac Type Severity Reaction Status Date / Time blue dye Allergy Severe Rash/Hives Verified 03/13/20 09:40 codeine Allergy Itching Verified 03/13/20 09:40 naproxen sodium [From Aleve] Allergy Rash/Hives Verified 03/13/20 09:40 ondansetron [From Zofran] Allergy Rash/Hives Verified 03/13/20 09:40 gabapentin AdvReac Abdominal Verified 03/13/20 09:40 Pain naloxegol [From Movantik] AdvReac Nausea & Verified 03/13/20 09:40 Vomiting Physical Exam Vitals: Vital Signs Temp Pulse Resp BP BP Pulse Ox 03/14/20 11:15 185/99 03/14/20 08:58 201/77 03/14/20 07:48 97.8 F 72 14 220/119 96 03/14/20 06:37 194/87 03/14/20 04:30 173/80 03/14/20 03:56 98.2 F 97 18 196/109 228/113 96 03/13/20 19:21 97.7 F 68 16 189/92 95 03/13/20 14:56 98.0 F 69 16 167/88 96 03/13/20 14:19 70 16 Intake and Output 03/13/20 03/14/20 03/14/20 22:59 06:59 14:59 Intake Total 500 Balance 500 Intake: Oral 500 Other: Voiding Method Toilet Toilet Toilet # Voids 0 # Bowel Movements 1 On physical examination, patient appears comfortable in no apparent distress. HEAD: Normocephalic, atraumatic. EYES: No scleral icterus. No conjunctival injection. MOUTH: No lesions, tongue midline. NECK: Trachea midline, no gross abnormalities. CHEST: Clear to auscultation with no wheezing or rhonchi appreciated. HEART: Regular rate and rhythm. ABDOMEN: Soft, obese, mildly physical patient worse in the right lower quadrant. Bowel sounds are positive. No organomegaly. No guarding or rigidity. 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 SKIN: No rashes, no jaundice. NEUROLOGIC: Alert and oriented x3. No focal deficits. Results CBC & Chem 7: 03/14/20 11:45 03/13/20 07:26 Labs: Abnormal Lab Results - Last 24 Hours (Table) 03/13/20 03/14/20 03/14/20 Range/Units 20:37 05:37 06:35 POC Glucose (mg/dL) 124 H 146 H 139 H (75-99) mg/dL 03/14/20 Range/Units 12:13 POC Glucose (mg/dL) 155 H (75-99) mg/dL US - abdomen: report reviewed (Ultrasound performed in evaluation negative for cholelithiasis or CBD dilation.) Assessment and Plan (1) Intractable abdominal pain Narrative/Plan: 64-year-old male with multiple medical comorbidities and multiple recent hospitalizations for constipation and abdominal pain. He has a history significant for sigmoid resection secondary to diverticulitis in 2007 and recently underwent lysis of adhesions in February. Last colonoscopy was in 2018 is significant for diverticulosis and a tubular adenoma and EGD in 12/2018 for GERD significant for hiatal hernia gastritis and duodenitis. He reports chronic constipation at baseline. Symptoms are likely multifactorial secondary to functional bowel disorder, underlying depression and anxiety, chronic constipation likely exacerbated by neuropathies in the setting of underlying diabetes mellitus and cannot exclude other exacerbating features. Computed tomography scan of the abdomen with numerous findings including possible dilation of the proximal descending colon cannot rule out an anastomotic stricture although colonoscopy was in 2019 as dictated. Current Visit: Yes Status: Acute Code(s): R10.9 - UNSPECIFIED ABDOMINAL PAIN SNOMED Code(s): 44350432 (2) Constipation Current Visit: Yes Status: Acute Code(s): K59.00 - CONSTIPATION, UNSPECIFIED SNOMED Code(s): 09257721 (3) Dilatation of colon Current Visit: Yes Status: Acute Code(s): K59.39 - OTHER MEGACOLON SNOMED Code(s): 361758634 Plan: Supportive care Okay for diet as tolerated Surgical service following MiraLAX and Senokot order for bowel regimen, extensive discussion with the patient and his was at bedside with titration of his medical regimen including increasing MiraLAX and taking the medication regularly Extensive discussion with the patient regarding dietary modifications including limiting consumption of fibrous foods the setting of possible colonic stricture Follow-up with gastroenterology after discharge for continued medical management Thank you for allowing us to participate in the care of the patient
[2020-03-14] MEDS: traZODone HCL 50 MG TAB PO SCH (21:08)
[2020-03-14 21:21] LABS: Glucose,Whole Blood 153 mg/dL (75-99)
--- NOTE | 2020-03-14 22:10 | P.PN ---
Subjective Progress Note Date: 03/14/20 Principal diagnosis: Abdominal pain with ileus possible small bowel obstruction Patient is a 64-year-old male with a known history of hypertension, diabetes type 2, GERD, hearing disorder, hyperlipidemia, depression, bilateral diabetic peripheral neuropathy, hydrocephalus status post SMALL BUSINESS CONSULTANT shunt, IBS, history of diverticulitis/bowel resection multiple medical problems including anxiety/depression currently with a smoker came to ER with complaints of abdominal pain. Patient recently had laparoscopic lysis of adhesions about [address] Mercedes. patient has been having abdominal pain mainly right lower quadrant which has been worsening for the past 1 week. Patient does have nausea vomiting and constipation. Denied any fever or chills. Denies any chest pain. No cough or sputum production. Denied any recent illnesses otherwise. Patient blood pressure was elevated on admission with BP 186/128. CT of the abdomen pelvis was done tiny bilateral pleural effusions. Sliding hiatal edema. Simple appearing cysts in both kidneys. Improved appearance of the small bowel. Postsurgical involving the sigmoid colon. There is questionable area of narrowing in the descending colon measuring 3.6 cm. The colon proximal to this is mildly dilated air-filled. There accumulation will be suggested to exclude malignancy. Degenerative changes within the spine. Continued minimal dilation of the jejunal loop in the left upper quadrant slightly improved from previous Laboratory data showed WBC 11.8, hemoglobin 18.8 and platelets 247 BUN 14 and creatinine 1.09 Blood sugar is 187 Total bilirubin is 1.4 liver enzymes his AST ALT and alk phos within normal limits Troponin less than 0.012 03/14/20 Patient is currently lying in bed comfortably. Abdominal pain is better after small bowel movement after soapsuds enema today. Blood pressure is still elevated with SBP greater than 220 this morning. Abdominal x-ray showed nonspecific bowel gas pattern. Couple of air-fluid levels within the left mid abdominal present. Minimal partial small bowel obstruction will unlikely is not entirely excluded. Follow-up recommended. Differential diagnosis could include ileus and gastroenteritis. Laboratory data reviewed. Objective - Vital Signs Vital signs: Vital Signs Temp 98.3 F 03/14/20 21:00 Pulse 71 03/14/20 21:00 Resp 16 03/14/20 21:00 BP 165/92 03/14/20 21:00 Pulse Ox 96 03/14/20 21:00 Intake & Output 03/14/20 03/14/20 03/15/20 06:59 18:59 06:59 Intake Total 500 240 Balance 500 240 Weight 85.275 kg Intake: Oral 500 240 Other: Voiding Method Toilet Toilet Toilet # Voids 3 1 # Bowel Movements 1 - Exam PHYSICAL EXAMINATION: Patient is lying in the bed comfortably, no acute distress, awake alert and oriented.. HEENT: Normocephalic. Neck is supple. Pupils reactive. Nostrils clear. Oral cavity is moist. Ears reveal no drainage. Neck reveals no JVD, carotid bruits, or thyromegaly. CHEST EXAMINATION: Trachea is central. Symmetrical expansion.bibasilar diminished air entry. Lung silva clear to auscultation and percussion. CARDIAC: Normal S1, S2 with no gallops. No murmurs ABDOMEN: Soft. tenderness of the right lower quadrantBowel sounds present. No organomegaly. No abdominal bruits. Extremities: reveal no edema. No clubbing or cyanosis Neurologically awake, alert, oriented x3 with well-coordinated movements. No focal deficits noted Skin: No rash or skin lesions. Psychiatric: Coperative. Nonsuicidal Musculoskeletal: No joint swelling or deformity. Normal range of motion. - Labs CBC & Chem 7: 03/14/20 11:45 03/13/20 07:26 Labs: Abnormal Lab Results - Last 24 Hours (Table) 03/14/20 03/14/20 03/14/20 Range/Units 05:37 06:35 12:13 POC Glucose (mg/dL) 146 H 139 H 155 H (75-99) mg/dL 03/14/20 03/14/20 03/14/20 Range/Units 17:09 18:29 21:19 POC Glucose (mg/dL) 148 H 200 H 153 H (75-99) mg/dL Assessment and Plan Assessment: abdominal pain secondary to ileus with dilated bowel loops.Possible mechanical small bowel obstruction. Narrowing of the middescending colon measuring3.6 cm. Hypertensive urgency recent history of lysis of adhesions and laparoscopic History of diverticulitis Hypertension and diabetes type 2 Diabetic peripheral neuropathy Hearing disorder/deafness Hyperlipidemia Severe depression History of CVA/TIA with no residual weakness History of hydrocephalus with SMALL BUSINESS CONSULTANT shunt IBS History of bowel resection due to diverticulitis Hiatal hernia Reason joint disease History of migraine headaches Skull/head injury at is 19 with a lengthy hospitalization. Anxiety/depression Currently everyday smoker DVT prophylaxis Plan: Patient will be continued on IV hydration. Currently the clear liquid diet as tolerated and GI and Gen. surgery was consulted. Continue with home medications and insulin sliding scale for better blood sugar control. Monitor platelets and follow closely. Repeat CBC and BMP tomorrow. Further recommendations based on the clinical course. Prognosis is guarded. Time with Patient: Greater than 30
[2020-03-15] MEDS: HYDROmorphone 0.5 MG/0.5 ML SYRINGE IVP PRN ×6 (02:51→21:05)
[2020-03-15] MEDS: SODIUM CHLORIDE 0.9% 1,000 ML IV SCH ×2 (02:53→12:22)
[2020-03-15 06:47] LABS: Glucose,Whole Blood 153 mg/dL (75-99)
[2020-03-15] MEDS: INSULIN DETEMIR (LEVEMIR) 100 UNIT/ML SYR SQ SCH (06:57)
[2020-03-15] MEDS: atenoloL 25 MG TAB PO SCH (07:23)
[2020-03-15] MEDS: DOCUSATE 100 MG CAP PO SCH ×2 (07:23→20:55)
[2020-03-15] MEDS: ASPIRIN 81 MG PO SCH (07:23)
[2020-03-15] MEDS: PANTOPRAZOLE 40 MG TABLET PO SCH (07:23)
[2020-03-15] MEDS: lisinopriL 20 MG TAB PO SCH ×2 (07:23→20:55)
[2020-03-15] MEDS: SENNOSIDES 8.6 MG TAB PO SCH (07:24)
[2020-03-15] MEDS: amLODIPine 2.5 MG TAB PO SCH (07:24)
[2020-03-15] MEDS: polyethylene glycoL 3350 17 GM POWD.PACK PO SCH ×2 (07:24→21:00)
[2020-03-15] MEDS: INSULIN ASPART (NovoLOG) 100 UNIT/ML VIAL SQ SCH ×3 (07:24→17:06)
[2020-03-15 08:12] LABS: ALT 13 U/L (4-49); AST 15 U/L (17-59); African American GFR (CKD) >90 (>60 ml/min/1.73 sqM); Albumin 3.8 g/dL (3.5-5.0); Alkaline Phosphatase 80 U/L (38-126); Anion Gap 7 mmol/L; Blood Urea Nitrogen 11 mg/dL (9-20); Calcium 8.9 mg/dL (8.4-10.2); Carbon Dioxide 24 mmol/L (22-30); Chloride 105 mmol/L (98-107); Glucose 154 mg/dL (74-99); Non-African American GFR(CKD) 86 (>60 ml/min/1.73 sqM); Potassium 4.5 mmol/L (3.5-5.1); Sodium 136 mmol/L (137-145); Total Bilirubin 1.3 mg/dL (0.2-1.3)
--- NOTE | 2020-03-15 11:25 | P.PN ---
Subjective Progress Note Date: 03/15/20 CHIEF COMPLAINT: abdominal pain HISTORY OF PRESENT ILLNESS: Patient examined this morning at the bedside. He continues to complain of right lower quadrant pain. He tolerated clear liquid breakfast. No nausea or vomiting. He is passing flatus. Nursing reports he had a bowel movement yesterday after an enema. Gallbladder ultrasound completed and reviewed. PHYSICAL EXAM: VITAL SIGNS: Reviewed GENERAL: Well-developed in no acute distress. HEENT: No sclera icterus. Extraocular movements grossly intact. Moist buccal mucosa. Head is atraumatic, normocephalic. Hears conversational speech. No nasal drainage. NECK: Supple without lymphadenopathy. CHEST: Non-labored respirations and equal bilateral excursions. CARDIOVASCULAR: Regular rate with regular rhythm. Palpable 2+ radial pulses. ABDOMEN: Soft. Nondistended. Midline incision healing well. Tenderness to right lower quadrant. MUSCULOSKELETAL: No clubbing or cyanosis. NEUROLOGIC: No focal or lateralizing signs. Cranial nerves II through XII grossly intact. PSYCH: Appropriate affect. Alert and oriented to person, place and time. SKIN: Well perfused. Good skin turgor. ASSESSMENT: 1. Chronic right lower quadrant abdominal pain 2. History of RN REHABILITATION shunt 3. History of bowel resection secondary to diverticulitis 4. History of multiple abdominal surgeries secondary to peritoneal adhesions PLAN: -Continue diet as tolerated -Await further recommendations from GI service -Dr. Mercedes recommends patient to follow up with his neurosurgeon outpatient regarding his RN REHABILITATION shunt to see if there are any options such as removing his shunt due to continued forming abdominal adhesions near his shunt -No surgical intervention recommended at this time -Further recommendations pending patient course Nurse practitioner note has been reviewed by physician. Signing provider agrees with the documented findings, assessment, and plan of care. Objective - Vital Signs Vital signs: Vital Signs Temp 98.8 F 03/15/20 07:19 Pulse 72 03/15/20 07:19 Resp 14 03/15/20 07:19 BP 161/83 03/15/20 07:19 Pulse Ox 95 03/15/20 07:19 Intake & Output 03/14/20 03/15/20 03/15/20 18:59 06:59 18:59 Intake Total 240 Balance 240 Weight 85.275 kg Intake: Oral 240 Other: Voiding Method Toilet Toilet Toilet # Voids 3 1 2 # Bowel Movements 1 - Labs CBC & Chem 7: 03/14/20 11:45 03/15/20 06:29 Labs: Abnormal Lab Results - Last 24 Hours (Table) 03/14/20 03/14/20 03/14/20 Range/Units 12:13 17:09 18:29 Sodium (137-145) mmol/L Glucose (74-99) mg/dL POC Glucose (mg/dL) 155 H 148 H 200 H (75-99) mg/dL AST (17-59) U/L Total Protein (6.3-8.2) g/dL 03/14/20 03/15/20 03/15/20 Range/Units 21:19 06:29 06:46 Sodium 136 L (137-145) mmol/L Glucose 154 H (74-99) mg/dL POC Glucose (mg/dL) 153 H 153 H (75-99) mg/dL AST 15 L (17-59) U/L Total Protein 6.0 L (6.3-8.2) g/dL
[2020-03-15 11:38] LABS: Glucose,Whole Blood 246 mg/dL (75-99)
[2020-03-15 17:06] LABS: Glucose,Whole Blood 79 mg/dL (75-99)
[2020-03-15] MEDS: ATORVASTATIN 20 MG TAB PO SCH (17:18)
[2020-03-15] MEDS: traZODone HCL 50 MG TAB PO SCH (20:55)
[2020-03-15 21:10] LABS: Glucose,Whole Blood 111 mg/dL (75-99)
--- NOTE | 2020-03-15 21:14 | P.PN ---
Progress Note - Text Progress Note Date: 03/15/20 Patient evaluated and reports no bowel movement despite enema. His main concern includes pain along the ride side of the abdomen along the course of his HEAD TENNIS PROFESSIONAL shunt. Gallbladder ultrasound negative for gallstones. He gives additional history that his soreness started 4 months ago in October 2019 after tapering his Gabapentin 300 mg TID for neuropathy of the right hand as he has a left hand amputation. As he tapered his medication, his right sided abdominal pain grew worse. He also developed recurrent constipation about similar time frame. Last colonoscopy over 2 years ago with polypectomy. He also reports previous bowel surgery done by Dr. Subramanian for his colon. He has not had a follow up with Dr. Najera neurosurgeon for his shunt in 15 years. He is tolerating liquid diet and reports 5/10 pain of the right lower abdomen. He has been seen by GI for his chronic constipation. Outpatient versus inpatient colonoscopy also described for his change in bowel habits. He is now on regular diet. Per discussion with his nurse, plan for discharge tomorrow including follow-up with his neurosurgeon is advised. Patient should follow up with GI and surgery as outpatient.
[2020-03-16] MEDS: HYDROmorphone 0.5 MG/0.5 ML SYRINGE IVP PRN ×3 (00:05→06:37)
[2020-03-16 03:01] VITALS: RESP 16
[2020-03-16] MEDS: SODIUM CHLORIDE 0.9% 1,000 ML IV SCH (03:17)
[2020-03-16 05:28] LABS: ALT 13 U/L (4-49); AST 15 U/L (17-59); African American GFR (CKD) >90 (>60 ml/min/1.73 sqM); Albumin 3.6 g/dL (3.5-5.0); Alkaline Phosphatase 81 U/L (38-126); Anion Gap 6 mmol/L; Blood Urea Nitrogen 14 mg/dL (9-20); Carbon Dioxide 26 mmol/L (22-30); Chloride 105 mmol/L (98-107); Glucose 118 mg/dL (74-99); Non-African American GFR(CKD) 82 (>60 ml/min/1.73 sqM); Potassium 3.8 mmol/L (3.5-5.1); Sodium 137 mmol/L (137-145); Total Bilirubin 0.9 mg/dL (0.2-1.3); Total Protein 5.9 g/dL (6.3-8.2)
[2020-03-16 06:07] LABS: Glucose,Whole Blood 170 mg/dL (75-99)
[2020-03-16] MEDS: INSULIN DETEMIR (LEVEMIR) 100 UNIT/ML SYR SQ SCH (06:39)
[2020-03-16] MEDS: PANTOPRAZOLE 40 MG TABLET PO SCH (06:39)
--- NOTE | 2020-03-16 06:53 | P.PN ---
Subjective Progress Note Date: 03/15/20 Principal diagnosis: Abdominal pain, constipation Patient is seen lying in bed continuing to report abdominal pain and constipation. Objective - Vital Signs Vital signs: Vital Signs Temp 98.8 F 03/15/20 07:19 Pulse 72 03/15/20 07:19 Resp 14 03/15/20 07:19 BP 161/83 03/15/20 07:19 Pulse Ox 95 03/15/20 07:19 Intake & Output 03/14/20 03/15/20 03/15/20 18:59 06:59 18:59 Intake Total 240 Balance 240 Weight 85.275 kg Intake: Oral 240 Other: Voiding Method Toilet Toilet Toilet # Voids 3 1 2 # Bowel Movements 1 - Exam On physical examination, patient appears comfortable in no apparent distress. HEAD: Normocephalic, atraumatic. EYES: No scleral icterus. No conjunctival injection. MOUTH: No lesions, tongue midline. NECK: Trachea midline, no gross abnormalities. ABDOMEN: Soft, obese, mildly tender to palpation worse in the right lower quadrant. Bowel sounds are positive. No organomegaly. No guarding or rigidity. 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 SKIN: No rashes, no jaundice. NEUROLOGIC: Alert and oriented x3. No focal deficits. - Labs CBC & Chem 7: 03/14/20 11:45 03/16/20 04:40 Labs: Abnormal Lab Results - Last 24 Hours (Table) 03/14/20 03/14/20 03/14/20 Range/Units 17:09 18:29 21:19 Sodium (137-145) mmol/L Glucose (74-99) mg/dL POC Glucose (mg/dL) 148 H 200 H 153 H (75-99) mg/dL AST (17-59) U/L Total Protein (6.3-8.2) g/dL 03/15/20 03/15/20 03/15/20 Range/Units 06:29 06:46 11:37 Sodium 136 L (137-145) mmol/L Glucose 154 H (74-99) mg/dL POC Glucose (mg/dL) 153 H 246 H (75-99) mg/dL AST 15 L (17-59) U/L Total Protein 6.0 L (6.3-8.2) g/dL Assessment and Plan (1) Intractable abdominal pain Narrative/Plan: 64-year-old male with multiple medical comorbidities and multiple recent hospitalizations for constipation and abdominal pain. He has a history significant for sigmoid resection secondary to diverticulitis in 2007 and recently underwent lysis of adhesions in February. Last colonoscopy was in [address] Janine Mercedes and significant for diverticulosis and a tubular adenoma and EGD in 12/2018 for GERD significant for hiatal hernia gastritis and duodenitis. He reports chronic constipation at baseline. Symptoms are likely multifactorial secondary to functional bowel disorder, underlying depression and anxiety, chronic constipation likely exacerbated by neuropathies in the setting of underlying diabetes mellitus and cannot exclude other exacerbating features. Computed tomography scan of the abdomen with numerous findings including possible dilation of the proximal descending colon cannot rule out an anastomotic stricture although colonoscopy was in 03/2019 as dictated. Current Visit: Yes Status: Acute Code(s): R10.9 - UNSPECIFIED ABDOMINAL PAIN SNOMED Code(s): 46623223 (2) Constipation Current Visit: Yes Status: Acute Code(s): K59.00 - CONSTIPATION, UNSPECIFIED SNOMED Code(s): 86448273 (3) Dilatation of colon Current Visit: Yes Status: Acute Code(s): K59.39 - OTHER MEGACOLON SNOMED Code(s): 416197157 Plan: Supportive care Okay for diet as tolerated Surgical service following MiraLAX and Senokot order for bowel regimen, extensive discussion with the patient and his was at bedside with titration of his medical regimen including increasing MiraLAX and taking the medication regularly Extensive discussion with the patient regarding dietary modifications including limiting consumption of fibrous foods the setting of possible colonic stricture Follow-up with gastroenterology after discharge for continued medical management Follow up with neurosurgery after discharge Thank you for allowing us to participate in the care of the patient, the GI service will stand by, please call us back with questions or concerns
[2020-03-16 08:11] VITALS: BP 162/70; PULSE 76; TEMP 97.9
[2020-03-16] MEDS: lisinopriL 20 MG TAB PO SCH (08:20)
[2020-03-16] MEDS: atenoloL 25 MG TAB PO SCH (08:20)
[2020-03-16] MEDS: DOCUSATE 100 MG CAP PO SCH (08:20)
[2020-03-16] MEDS: amLODIPine 2.5 MG TAB PO SCH (08:20)
[2020-03-16] MEDS: polyethylene glycoL 3350 17 GM POWD.PACK PO SCH (08:20)
[2020-03-16] MEDS: ASPIRIN 81 MG PO SCH (08:20)
[2020-03-16] MEDS: SENNOSIDES 8.6 MG TAB PO SCH (08:20)
[2020-03-16] MEDS: INSULIN ASPART (NovoLOG) 100 UNIT/ML VIAL SQ SCH ×2 (08:21→11:59)
[2020-03-16 11:36] LABS: Glucose,Whole Blood 131 mg/dL (75-99)
--- NOTE | 2020-03-16 13:07 | P.PN ---
Subjective Progress Note Date: 03/16/20 CHIEF COMPLAINT: abdominal pain HISTORY OF PRESENT ILLNESS: Patient examined this morning at the bedside with Dr. Mercedes. He continues to complain of right lower quadrant pain but states it is tolerable. Tolerating diet without nausea or vomiting. PHYSICAL EXAM: VITAL SIGNS: Reviewed GENERAL: Well-developed in no acute distress. HEENT: No sclera icterus. Extraocular movements grossly intact. Moist buccal mucosa. Head is atraumatic, normocephalic. Hears conversational speech. No nasal drainage. NECK: Supple without lymphadenopathy. CHEST: Non-labored respirations and equal bilateral excursions. CARDIOVASCULAR: Regular rate with regular rhythm. Palpable 2+ radial pulses. ABDOMEN: Soft. Nondistended. Midline incision healing well. Tenderness to right lower quadrant. MUSCULOSKELETAL: No clubbing or cyanosis. NEUROLOGIC: No focal or lateralizing signs. Cranial nerves II through XII grossly intact. PSYCH: Appropriate affect. Alert and oriented to person, place and time. SKIN: Well perfused. Good skin turgor. ASSESSMENT: 1. Chronic right lower quadrant abdominal pain 2. 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 History of bowel resection secondary to diverticulitis 4. History of multiple abdominal surgeries secondary to peritoneal adhesions PLAN: -Continue diet as tolerated -Dr. Mercedes recommends patient to follow up with his neurosurgeon outpatient regarding his KNOTTING MACHINE OPERATOR shunt to see if there are any options such as removing his shunt due to continued forming abdominal adhesions near his shunt -No surgical intervention recommended at this time -Stable for discharge from a surgical standpoint Nurse practitioner note has been reviewed by physician. Signing provider agrees with the documented findings, assessment, and plan of care. Objective - Vital Signs Vital signs: Vital Signs Temp 97.9 F 03/16/20 08:07 Pulse 76 03/16/20 08:07 Resp 16 03/16/20 08:07 BP 162/70 03/16/20 08:07 Pulse Ox 96 03/16/20 08:07 Intake & Output 03/15/20 03/16/20 03/16/20 18:59 06:59 18:59 Intake Total 240 240 Balance 240 240 Intake: Oral 240 240 Other: Voiding Method Toilet Toilet Toilet # Voids 2 2 1 - Labs CBC & Chem 7: 03/14/20 11:45 03/16/20 04:40 Labs: Abnormal Lab Results - Last 24 Hours (Table) 03/15/20 03/16/20 03/16/20 Range/Units 21:08 04:40 06:05 Glucose 118 H (74-99) mg/dL POC Glucose (mg/dL) 111 H 170 H (75-99) mg/dL AST 15 L (17-59) U/L Total Protein 5.9 L (6.3-8.2) g/dL 03/16/20 Range/Units 11:32 Glucose (74-99) mg/dL POC Glucose (mg/dL) 131 H (75-99) mg/dL AST (17-59) U/L Total Protein (6.3-8.2) g/dL
== END 2020-03-16 12:35 | disposition home or self-care (01) | DRG 389 ==
LOC: EC 07:15 → 1SOBS 09:27 → OBSVTOIN 03-16 09:47
PROVIDERS: ADMIT Hospitalist; ATTEND Hospitalist
DX: K56.600 Partial intestinal obstruction, unspecified as to cause (principal); R45.851 Suicidal ideations; K59.39 Other megacolon; Z11.59 Encounter for screening for other viral diseases; E11.22 Type 2 diabetes mellitus with diabetic chronic kidney disease; E11.42 Type 2 diabetes mellitus with diabetic polyneuropathy; Z79.4 Long term (current) use of insulin; E78.5 Hyperlipidemia, unspecified; F32.9 Major depressive disorder, single episode, unspecified; H91.90 Unspecified hearing loss, unspecified ear; K58.9 Irritable bowel syndrome, unspecified; K44.9 Diaphragmatic hernia without obstruction or gangrene; G43.909 Migraine, unspecified, not intractable, without status migrainosus; F41.9 Anxiety disorder, unspecified; F17.210 Nicotine dependence, cigarettes, uncomplicated; K21.9 Gastro-esophageal reflux disease without esophagitis; I12.9 Hypertensive chronic kidney disease with stage 1 through stage 4 chronic kidney disease, or unspecified chronic kidney disease; N18.2 Chronic kidney disease, stage 2 (mild); D72.829 Elevated white blood cell count, unspecified; E86.0 Dehydration; N28.1 Cyst of kidney, acquired; G89.29 Other chronic pain; K57.90 Diverticulosis of intestine, part unspecified, without perforation or abscess without bleeding; I16.0 Hypertensive urgency; K59.09 Other constipation; Z79.899 Other long term (current) drug therapy; Z79.82 Long term (current) use of aspirin; Z71.3 Dietary counseling and surveillance; Z98.890 Other specified postprocedural states; Z98.2 Presence of cerebrospinal fluid drainage device; Z90.49 Acquired absence of other specified parts of digestive tract; Z86.73 Personal history of transient ischemic attack (TIA), and cerebral infarction without residual deficits; Z87.442 Personal history of urinary calculi; Z87.820 Personal history of traumatic brain injury; Z98.1 Arthrodesis status; Z89.112 Acquired absence of left hand; Z91.048 Other nonmedicinal substance allergy status; Z88.6 Allergy status to analgesic agent; Z88.5 Allergy status to narcotic agent; Z88.8 Allergy status to other drugs, medicaments and biological substances; Z80.51 Family history of malignant neoplasm of kidney; Z80.0 Family history of malignant neoplasm of digestive organs
CPT/HCPCS: 36415; 74019; 74177; 76705; 80053; 83690; 84484; 85025; 93005; 96361; 96374; 96375; 99285

== ENCOUNTER → 2020-04-22 | Outpatient (CLI) | payer BC, MEDICARE ==
--- NOTE | 2020-04-22 16:26 | CT ---
EXAMINATION TYPE: CT brain wo con DATE OF EXAM: 04/22/2020 HISTORY: Shunt CT DLP: 1129 mGycm. Automated Exposure Control for Dose Reduction was Utilized. TECHNIQUE: CT scan of the head is performed without contrast. COMPARISON: CT brain 03/20/2013 FINDINGS: There is a right occipitoparietal approach ventriculoperitoneal shunt, with distal tip crossing midli ne and within the left mid lateral ventricle, unchanged from 03/20/2013 CT comparison. There is no vent riculomegaly. Lateral ventricles are symmetric. The visualized shunt demonstrates no evidence of disc ontinuity or kinking. There is no acute intracranial hemorrhage, midline shift, or mass effect identified. There is chronic low-attenuation area of the left medial cerebellar posterior fossa which is unchanged versus 2013. No extra-axial fluid collection. Bones and extracranial soft tissues are intact. The globes are gross ly symmetric. Visualized sinuses and mastoid air cells are clear. IMPRESSION: 1. Right-sided ventriculoperitoneal shunt with distal tip at the left lateral ventricle, unchanged ve rsus 03/20/2013 comparison. No ventriculomegaly. No shunt discontinuity. 2. No acute intracranial hemorrhage, midline shift, or mass effect.
== END | disposition home or self-care (01) ==
LOC: RADCTMAIN 15:29
PROVIDERS: ATTEND Family Medicine
DX: Z09 Encounter for follow-up examination after completed treatment for conditions other than malignant neoplasm (principal); Z98.2 Presence of cerebrospinal fluid drainage device
CPT/HCPCS: 70450

== ENCOUNTER → 2020-04-29 | Outpatient (CLI) | payer BC, MEDICARE ==
--- NOTE | 2020-04-29 07:59 | US ---
EXAMINATION TYPE: US abdomen complete DATE OF EXAM: 04/29/2020 COMPARISON: NONE CLINICAL HISTORY: R10.9 ABD PAIN. abdominal pain for 4-5 months, nausea EXAM MEASUREMENTS: Liver Length: 15.0 cm Gallbladder Wall: 0.2 cm CBD: 0.7 cm Spleen: 9.8 cm Right Kidney: 10.7 x 5.1 x 4.6 cm Left Kidney: 10.6 x 5.9 x 4.6 cm *Technical limitations due to large amount of overlying bowel content Pancreas: Obscured by bowel gas Liver: visualized portions appear wnl Gallbladder: no evidence of stones Evidence for sonographic Schaffer's sign: no CBD: upper limits of normal Spleen: appears wnl Right Kidney: cystic areas noted, largest = 6.3 x 3.9 x 6.0cm Left Kidney: cystic area lower pole = 1.0cm Upper IVC: wnl Abd Aorta: calcifications noted, there are atheromatous changes The liver is homogenous. The intrahepatic portion of the IVC and proximal abdominal aorta are within normal limits. There is no evidence of cholelithiasis. Common bile duct is unremarkable. The visu alized portions of the pancreas are homogenous. The spleen is unremarkable. Kidneys are symmetric a nd free of hydronephrosis. There are bilateral renal cysts appear simple, cortical medullary differen tiation is maintained.. IMPRESSION: There are some limitations the exam. Common bile duct is at the upper limit of normal for size.
== END | disposition home or self-care (01) ==
LOC: RADUSWWP 06:59
PROVIDERS: ATTEND Family Medicine
DX: R10.9 Unspecified abdominal pain (principal)
CPT/HCPCS: 76700

== ENCOUNTER 2020-05-12 08:25 | Observation (INO) | payer BC, MEDICARE ==
--- NOTE | 2020-05-12 08:55 | ED ---
General Adult HPI - General Chief complaint: Chest Pain Stated complaint: chest pain Time Seen by Provider: 05/12/20 08:32 Source: patient Mode of arrival: ambulatory - History of Present Illness Initial comments: Dictation was produced using [employer] dictation software. please excuse any grammatical, word or spelling errors. This patient was cared for during a federal and state declared state of emergency secondary to Covid 19 Chief Complaint 64:-year-old male presents for chest pain. History of Present Illness: 64-year-old male who presents today for chest pain. Patient was just seen and evaluated for the same complaint earlier this morning at 2 AM. He states that his pain was to his left substernal area. He was seen and evaluated here in emergency department and had negative workup. He is given options to be admitted or go home. he opted to go home. Patient states that when he got home he tried sleep however had persistent symptoms and diaphoresis. Patient returns to the emergency Department because he feels as though he made the wrong decision and felt like he should've been admitted to the hospital. Patient's been under a lot of stress recently because his daughters will wetting his on Saturday. States he has a lot to do for the daughter's wedding. Patient states his extensive history of chronic abdominal problems. He's been evaluated by multiple specialists for his abdominal pain however he was given no answers as to what's causing it. The ROS documented in this emergency department record has been reviewed and confirmed by me. Those systems with pertinent positive or negative responses have been documented in the HPI. All other systems are other negative and/or noncontributory. PHYSICAL EXAM: General Impression: Alert and oriented x3, not in acute distress, tearful HEENT: Normocephalic atraumatic, extra-ocular movements intact, pupils equal and reactive to light bilaterally, mucous membranes moist. Cardiovascular: Heart regular rate and rhythm Chest: Able to complete full sentences, no retractions, no tachypnea Abdomen: abdomen soft, non-tender, non-distended, no organomegaly Musculoskeletal: Pulses present and equal in all extremities, no peripheral edema Motor: no focal deficits noted Neurological: CN II-XII grossly intact, no focal motor or sensory deficits noted Skin: Intact with no visualized rashes Psych: Normal affect and mood ED course: 64-year-old male presents with clinical presentation consistent with atypical chest pain typical features. He was seen in emergency department 7 hours ago for the same complaint. He returns because his symptoms are persistent. All signs upon arrival shows blood pressure 195/103, worse vital signs within acceptable limits. Patient does however appear well at bedside. Patient did not receive an aspirin earlier today. Patient given aspirin. Case was discussed with Dr. Wood who is willing to accept patients care. I did speak personally Dr. Sanders to come and evaluate the patient sooner rather in order to expedite the process given that patient has his daughter's wedding this weekend. Patient is agreeable disposition. EKG interpretation: Ventricular rate 70, normal sinus rhythm, MT interval 180, QRS 82, QTC 410. No MT prolongation, no QTC prolongation, no ST or T-wave changes noted. EKG compared to some at 12:17 AM showing no changes. This EKG also does appear to be relatively unchanged compared to 03/13/2020 - Related Data Home Medications Medication Instructions Recorded Confirmed Simvastatin [Zocor] 40 mg PO AC-SUPPER 11/24/15 05/12/20 lisinopriL [Zestril] 20 mg PO BID 11/24/15 05/12/20 Insulin Aspart [NovoLOG Flexpen] 10 units SQ AC-LUNCH 12/15/18 05/12/20 Insulin Aspart [NovoLOG Flexpen] 20 units SQ AC-BID@0900,1800 12/15/18 05/12/20 Insulin Detemir (Levemir) [Levemir] 45 unit SQ DAILY 12/15/18 05/12/20 Aspirin EC [Ecotrin Low Dose] 81 mg PO DAILY 02/15/20 05/12/20 atenoloL [Atenolol] 25 mg PO DAILY 02/17/20 05/12/20 ALPRAZolam [Xanax] 0.5 mg PO BID PRN 05/12/20 05/12/20 Docusate [Colace] 100 mg PO BID 05/12/20 05/12/20 HYDROcodone/APAP 7.5-325MG [[place] 1 tab PO Q6H PRN 05/12/20 05/12/20 7.5-325] Allergies Allergy/AdvReac Type Severity Reaction Status Date / Time blue dye Allergy Severe Rash/Hives Verified 05/12/20 09:02 codeine Allergy Itching Verified 05/12/20 09:02 naproxen sodium [From Aleve] Allergy Rash/Hives Verified 05/12/20 09:02 ondansetron [From Zofran] Allergy Rash/Hives Verified 05/12/20 09:02 gabapentin AdvReac Abdominal Verified 05/12/20 09:02 Pain naloxegol [From Movantik] AdvReac Nausea & Verified 05/12/20 09:02 Vomiting Review of Systems ROS Statement: Those systems with pertinent positive or pertinent negative responses have been documented in the HPI. ROS Other: All systems not noted in ROS Statement are negative. Past Medical History Past Medical History: Chest Pain / Angina, CVA/TIA, Diabetes Mellitus, GERD/Reflux, Hearing Disorder / Deafness, Hyperlipidemia, Hypertension, Renal Disease Additional Past Medical History / Comment(s): Pt recently admitted to [facility] on 02/17/20 with abdominal pain/possible gastritis/hiatal hernia/possible CKD stage II/severe depression. Other hx: IDDM type II, neuropathy bilateral feet, CVA with no residual, TIA, hydrocephalus with DEVELOPMENT AND HOUSING DIRECTOR shunt, IBS, diverticulitis/bowel resection, hiatal hernia, DJD, occasional cervical pain, migraines, skull/head injury at age 19 with lengthy hospitalization, nephrolithiasis-passed stone on his own, [place] bilaterally. History of Any Multi-Drug Resistant Organisms: None Reported Past Surgical History: Back Surgery, Bowel Resection, Orthopedic Surgery Additional Past Surgical History / Comment(s): 02/18/20 Robot assisted laparoscopy/extensive lysis of adhesions, DEVELOPMENT AND HOUSING DIRECTOR shunt, 2020 R elbow tendon surgery, L knee arthroscopy, L hand amp d/t industrial accident, cervical fusion, bowel resection d/t diverticulitis, EGD, colonoscopy, hemorrhoidectomy, Past Anesthesia/Blood Transfusion Reactions: No Reported Reaction Past Psychological History: Anxiety, Depression Smoking Status: Current every day smoker Past Alcohol Use History: None Reported Past Drug Use History: Marijuana - Past Family History Mother Family Medical History: Cancer Additional Family Medical History / Comment(s): kidney Father Family Medical History: Cancer Additional Family Medical History / Comment(s): pancreatic Course Vital Signs 05/12/20 08:26 Temperature 97.6 F Pulse Rate 73 Respiratory 16 Rate Blood Pressure 195/103 O2 Sat by Pulse 99 Oximetry Medical Decision Making - Lab Data Result diagrams: 05/12/20 09:05 Lab Results 05/12/20 Range/Units 09:05 WBC 11.2 H (3.8-10.6) k/uL RBC 5.62 (4.30-5.90) m/uL Hgb 16.7 (13.0-17.5) gm/dL Hct 52.2 (39.0-53.0) % MCV 93.0 (80.0-100.0) fL MCH 29.7 (25.0-35.0) pg MCHC 32.0 (31.0-37.0) g/dL RDW 13.6 (11.5-15.5) % Plt Count 277 (150-450) k/uL Neutrophils % 68 % Lymphocytes % 20 % Monocytes % 6 % Eosinophils % 3 % Basophils % 2 % Neutrophils # 7.6 (1.3-7.7) k/uL Lymphocytes # 2.2 (1.0-4.8) k/uL Monocytes # 0.7 (0-1.0) k/uL Eosinophils # 0.3 (0-0.7) k/uL Basophils # 0.2 (0-0.2) k/uL Disposition Clinical Impression: Chest pain Disposition: ADMITTED IP TO THIS HOSP Condition: Fair Referrals: Dru Colby MD [Primary Care Provider] - 1-2 days Decision Time: 09:31
[2020-05-12 09:17] LABS: Basophils # (A) 0.2 k/uL (0-0.2); Basophils % (A) 2 %; Eosinophils # (A) 0.3 k/uL (0-0.7); Eosinophils % (A) 3 %; HCT 52.2 % (39.0-53.0); HGB 16.7 gm/dL (13.0-17.5); Lymphocytes # (A) 2.2 k/uL (1.0-4.8); Lymphocytes % (A) 20 %; MCH 29.7 pg (25.0-35.0); Mean Platelet Volume 6.5; Monocytes # (A) 0.7 k/uL (0-1.0); Monocytes % (A) 6 %; Neutrophils # (A) 7.6 k/uL (1.3-7.7); Neutrophils % (A) 68 %; Platelet Count 277 k/uL (150-450); RBC 5.62 m/uL (4.30-5.90); RDW 13.6 % (11.5-15.5); WBC 11.2 k/uL (3.8-10.6)
[2020-05-12] MEDS ORDERED: NITROGLYCERIN SL TABS 0.4 MG TAB SUBLINGUAL PRN (09:26)
[2020-05-12] MEDS ORDERED: ASPIRIN 81 MG PO STA (09:30)
[2020-05-12 09:34] LABS: African American GFR (CKD) >90 (>60 ml/min/1.73 sqM); Anion Gap 6 mmol/L; Blood Urea Nitrogen 18 mg/dL (9-20); Calcium 9.3 mg/dL (8.4-10.2); Carbon Dioxide 24 mmol/L (22-30); Chloride 108 mmol/L (98-107); Glucose 123 mg/dL (74-99); Lipase 449 U/L (23-300); Non-African American GFR(CKD) 87 (>60 ml/min/1.73 sqM); Potassium 4.2 mmol/L (3.5-5.1); Sodium 138 mmol/L (137-145)
[2020-05-12 09:51] VITALS: RESP 18
[2020-05-12 10:18] VITALS: PULSE 64
[2020-05-12 10:41] VITALS: BP 147/78; TEMP 98.2
[2020-05-12] MEDS ORDERED: KETOROLAC 15 MG/ML 1 ML VIAL IVP STA (10:58)
[2020-05-12] MEDS ORDERED: ALPRAZolam 0.5 MG TAB PO PRN (12:34)
--- NOTE | 2020-05-12 12:48 | P.CRDCN ---
History of Present Illness Consult date: 05/12/20 History of present illness: CHIEF COMPLAINT: Chest pain HISTORY OF PRESENT ILLNESS: This is a 64-year old male with a past medical history significant for diabetes, hypertension, hyperlipidemia, and tobacco use. Patient follows in the office with Dr. Guillen. We have been asked to see the patient in consultation for chest pain. Patient examined this morning at the bedside. He reports yesterday he began having some left-sided chest pain yesterday. He was evaluated in the emergency room earlier this morning and discharged home. He presented back to the emergency room after having a second episode of chest pain today. Patient states the pain is on the left side of his chest. He reports increased pain with palpation of left chest wall. He also reports some dizziness and diaphoresis. Patient states he was not doing anything strenuous at the time the pain started and he was just sitting around watching TV. He denies doing any heavy lifting. He states his daughter is getting on Saturday and he is under an extreme amount of stress due to the wedding and also multiple family members getting along and fighting. DIAGNOSTICS: EKG reveals sinus rhythm. Chest xray no acute process. Laboratory data: WBC 11.2. Hemoglobin 16.7. Platelet count 277. Sodium 138. Potassium 4.2. BUN 18. Creatinine 0.92. Troponin negative 2 (first troponin completed during previous ER visit this morning). Current home cardiac medications include lisinopril 20 mg twice a day, atenolol 25 mg daily, Zocor 40 mg daily, and aspirin 81 mg daily. Patient underwent stress test in 2018 which was negative for acute ischemia Echocardiogram completed in November 2019 reveals ejection fraction between 55 and 60%, mild mitral regurgitation and mild tricuspid regurgitation. REVIEW OF SYSTEMS: At the time of my exam: CONSTITUTIONAL: Denies fever or chills. HEENT: Denies blurred vision, vision changes, or eye pain. Denies hemoptysis CARDIOVASCULAR: Denies chest pain, orthopnea, PND or palpitations RESPIRATORY: No shortness of breath. GASTROINTESTINAL: Denies abdominal pain. Denies nausea or vomiting. HEMATOLOGIC: Denies bleeding disorders. GENITOURINARY: Denies any blood in urine. SKIN: Denies pruitis. Denies rash. PHYSICAL EXAM: VITAL SIGNS: Reviewed. GENERAL: Well-developed in no acute distress. HEENT: Head is normocephalic. Pupils are equal, round. Sclerae anicteric. Mucous membranes of the mouth are moist. Neck supple. No JVD or thyromegaly LUNGS: Respirations even and unlabored. Lungs essentially clear to auscultation bilaterally. HEART: Regular rate and rhythm. S1 and S2 heard. Tenderness upon palpation of left chest wall. ABDOMEN: Soft. Nondistended. Nontender. EXTREMITIES: Normal range of motion. No clubbing or cyanosis. Peripheral pulses intact. No lower extremity edema. Left hand amputation noted. NEUROLOGIC: Awake and alert. Oriented x 3. ASSESSMENT: Chest pain, atypical, acute coronary syndrome ruled out Hypertension Hyperlipidemia Diabetes mellitus, type II Nicotine dependence Elevated lipase History of recent lysis of adhesions, February 2020 PLAN: Resume home cardiac medications. Patient's chest pain appears to be musculoskeletal in nature and is worse with chest wall palpation. Patient to receive Toradol 30 mg 1 dose. Repeat EKG performed at bedside and reviewed by Dr. Sanders. No EKG changes noted. Smoking cessation discussed with patient. Patient may be discharged home from a cardiac standpoint and follow up outpatient with Dr. Guillen. Nurse practitioner note has been reviewed by physician. Signing provider agrees with the documented findings, assessment, and plan of care. Past Medical History Past Medical History: Chest Pain / Angina, CVA/TIA, Diabetes Mellitus, GERD/Reflux, Hearing Disorder / Deafness, Hyperlipidemia, Hypertension, Renal Disease Additional Past Medical History / Comment(s): IDDM type II, neuropathy bilateral feet, CVA with no residual, TIA, hydrocephalus with RN HEMODIALYSIS CHARGE shunt, recent admissions for abdominal pain/severe depression, IBS, diverticulitis/bowel resection, hiatal hernia, DJD, occasional cervical pain, migraines, skull/head injury at age 19 with lengthy hospitalization, nephrolithiasis-passed stone on his own, [place] bilaterally. History of Any Multi-Drug Resistant Organisms: None Reported Past Surgical History: Back Surgery, Bowel Resection, Orthopedic Surgery Additional Past Surgical History / Comment(s): 02/18/20 Robot assisted laparoscopy/extensive lysis of adhesions, RN HEMODIALYSIS CHARGE shunt2019 R elbow tendon surgery, L knee arthroscopy, L hand amp d/t industrial accident, cervical fusion, bowel resection d/t diverticulitis, EGD, colonoscopy, hemorrhoidectomy, Past Anesthesia/Blood Transfusion Reactions: No Reported Reaction Smoking Status: Current every day smoker - Past Family History Mother Family Medical History: Cancer Additional Family Medical History / Comment(s): kidney Father Family Medical History: Cancer Additional Family Medical History / Comment(s): pancreatic Medications and Allergies Home Medications Medication Instructions Recorded Confirmed Type Simvastatin [Zocor] 40 mg PO AC-SUPPER 11/24/15 05/12/20 History lisinopriL [Zestril] 20 mg PO BID 11/24/15 05/12/20 History Insulin Aspart [NovoLOG Flexpen] 10 units SQ AC-LUNCH 12/15/18 05/12/20 History Insulin Aspart [NovoLOG Flexpen] 20 units SQ AC-BID@0900,1800 12/15/18 05/12/20 History Insulin Detemir (Levemir) [Levemir] 45 unit SQ DAILY 12/15/18 05/12/20 History Aspirin EC [Ecotrin Low Dose] 81 mg PO DAILY 02/15/20 05/12/20 History atenoloL [Atenolol] 25 mg PO DAILY 02/17/20 05/12/20 History ALPRAZolam [Xanax] 0.5 mg PO BID PRN 05/12/20 05/12/20 History Docusate [Colace] 100 mg PO BID 05/12/20 05/12/20 History HYDROcodone/APAP 7.5-325MG [[place] 1 tab PO Q6H PRN 05/12/20 05/12/20 History 7.5-325] Allergies Allergy/AdvReac Type Severity Reaction Status Date / Time blue dye Allergy Severe Rash/Hives Verified 05/12/20 09:02 codeine Allergy Itching Verified 05/12/20 09:02 naproxen sodium [From Aleve] Allergy Rash/Hives Verified 05/12/20 09:02 ondansetron [From Zofran] Allergy Rash/Hives Verified 05/12/20 09:02 gabapentin AdvReac Abdominal Verified 05/12/20 09:02 Pain naloxegol [From Movantik] AdvReac Nausea & Verified 05/12/20 09:02 Vomiting Physical Exam Vitals: Vital Signs Temp Pulse Pulse Resp BP BP Pulse Ox 05/12/20 12:00 96 05/12/20 10:40 98.2 F 64 18 147/78 96 05/12/20 10:17 64 18 135/77 98 05/12/20 09:56 166/98 05/12/20 09:51 68 18 189/105 96 05/12/20 08:26 97.6 F 73 16 195/103 99 Intake and Output 05/11/20 05/12/20 05/12/20 22:59 06:59 14:59 Other: Weight 84.096 kg Results 05/12/20 09:05 05/12/20 09:05 Cardiac Enzymes 05/12/20 Range/Units 09:05 Troponin I <0.012 (0.000-0.034) ng/mL CBC 05/12/20 Range/Units 09:05 WBC 11.2 H (3.8-10.6) k/uL RBC 5.62 (4.30-5.90) m/uL Hgb 16.7 (13.0-17.5) gm/dL Hct 52.2 (39.0-53.0) % Plt Count 277 (150-450) k/uL Comprehensive Metabolic Panel 05/12/20 Range/Units 09:05 Sodium 138 (137-145) mmol/L Potassium 4.2 (3.5-5.1) mmol/L Chloride 108 H (98-107) mmol/L Carbon Dioxide 24 (22-30) mmol/L BUN 18 (9-20) mg/dL Creatinine 0.92 (0.66-1.25) mg/dL Glucose 123 H (74-99) mg/dL Calcium 9.3 (8.4-10.2) mg/dL Current Medications Generic Name Dose Route Start Last Admin Trade Name Freq PRN Reason Stop Dose Admin Aspirin 325 mg 05/13/20 09:00 Aspirin 325 Mg Tab PO DAILY OPAL Nitroglycerin 0.4 mg 05/12/20 09:26 05/12/20 09:55 Nitroglycerin Sl Tabs 0.4 Mg Tab SUBLINGUAL 0.4 mg Q5M PRN Administration Chest Pain Intake and Output 05/11/20 05/12/20 05/12/20 22:59 06:59 14:59 Other: Weight 84.096 kg Patient Weight 05/13/20 06:59 Weight 84.096 kg 05/12/20 09:05 05/12/20 09:05
[2020-05-12 13:12] VITALS: BMI 28.1
[2020-05-12 13:14] LABS: Glucose,Whole Blood 113 mg/dL (75-99)
[2020-05-12] MEDS ORDERED: INSULIN ASPART (NovoLOG) 100 UNIT/ML VIAL SQ SCH (17:30)
[2020-05-12] MEDS ORDERED: DOCUSATE 100 MG CAP PO SCH (21:00)
[2020-05-12] MEDS ORDERED: lisinopriL 20 MG TAB PO SCH (21:00)
--- NOTE | 2020-05-12 23:49 | P.HPIM ---
History of Present Illness Please consider this combined H&P and discharge summary Diagnoses: Chest pain, cardiac causes were ruled out. Chest pain was completely resolved prior to discharge hypertensive urgency upon admission History of diverticulitis, status post bowel resection Hypertension and diabetes type 2 Diabetic peripheral neuropathy Hearing disorder/deafness Hyperlipidemia History of CVA/TIA with no residual weakness History of hydrocephalus with WHARF WORKER shunt IBS Hiatal hernia Reason joint disease History of migraine headaches Skull/head injury at is 19 with a lengthy hospitalization. Anxiety/depression Currently everyday smoker Hospital course Patient is a 64-year-old male with a known history of hypertension, diabetes type 2, GERD, hearing disorder, hyperlipidemia, depression, bilateral diabetic peripheral neuropathy, hydrocephalus status post WHARF WORKER shunt, IBS, history of diverticulitis/bowel resection multiple medical problems including anxiety/depression currently with a smoker came to ER with chest pain Vital signs stable. Blood pressure was high 189/105 upon admission. Labs showing mild leukocytosis of 11.2 K, rest of CBC, BMP were unremarkable, troponin is less than 0.012, lipase is slightly high at 449. EKG showing normal sinus rhythm at 70 bpm with no significant ST-T changes. In the emergency room he got aspirin Patient has been evaluated by outsole splicer Dr. Owen his troponins were negat darian 2 and they cleared him for discharge. I talked to the patient extensively about further workup however his chest pain has completely resolved and no further workup is needed, patient himself was so anxious to be discharged home today to catch up with his daughter wedding. The patient told me his chest pain has completely resolved and it is 0/10 and he does not have any other symptoms and his back to his normal self and that he can go home as soon as possible. No dyspnea, no fever no abdominal complaints and tolerated diet well. Gait is normal Problems and management plan were discussed with the patient and he verbalized understanding and acceptance Patient was found stable and can be discharged home however he needs follow-up as an outpatient. Patient was instructed to follow up with PCP Dr. Colby within one week and patient agrees. Also patient was instructed to follow up with his outsole splicer Dr. Mcguire in 1-2 weeks and he agrees to call and make his own appointments Gen: patient is a AAOx3, no distress CVS: S1-S2, RRR, no murmur Lungs: B/L CTA, no wheezing Abdomen: soft, no distention, no tenderness, positive bowel sounds Extremity: no leg edema or induration Time spent more than 35 minutes Review of Systems CONSTITUTIONAL: No fever, no malaise, no fatigue. HEENT: No recent visual problems or hearing problems. Denied any sore throat. CARDIOVASCULAR: No orthopnea, PND, no palpitations, no syncope. PULMONARY: No shortness of breath, no cough, no hemoptysis. GASTROINTESTINAL: No diarrhea, no nausea, no vomiting, no abdominal pain. Normoactive bowel sounds. NEUROLOGICAL: No headaches, no weakness, no numbness. HEMATOLOGICAL: Denies any bleeding or petechiae. GENITOURINARY: Denies any burning micturition, frequency, or urgency. MUSCULOSKELETAL/RHEUMATOLOGICAL: Denies any joint pain, swelling, or any muscle pain. ENDOCRINE: Denies any polyuria or polydipsia. Past Medical History Past Medical History: Chest Pain / Angina, CVA/TIA, Diabetes Mellitus, GERD/Reflux, Hearing Disorder / Deafness, Hyperlipidemia, Hypertension, Renal Disease Additional Past Medical History / Comment(s): IDDM type II, neuropathy bilateral feet, CVA with no residual, TIA, hydrocephalus with WHARF WORKER shunt, recent admissions for abdominal pain/severe depression, IBS, diverticulitis/bowel resection, hiatal hernia, DJD, occasional cervical pain, migraines, skull/head injury at a ge 19 with lengthy hospitalization, nephrolithiasis-passed stone on his own, [place] bilaterally. History of Any Multi-Drug Resistant Organisms: None Reported Past Surgical History: Back Surgery, Bowel Resection, Orthopedic Surgery Additional Past Surgical History / Comment(s): 02/18/20 Robot assisted laparoscopy/extensive lysis of adhesions, WHARF WORKER shunt, 2020 R elbow tendon surgery, L knee arthroscopy, L hand amp d/t industrial accident, cervical fusion, bowel resection d/t diverticulitis, EGD, colonoscopy, hemorrhoidectomy, Past Anesthesia/Blood Transfusion Reactions: No Reported Reaction Smoking Status: Current every day smoker - Past Family History Mother Family Medical History: Cancer Additional Family Medical History / Comment(s): kidney Father Family Medical History: Cancer Additional Family Medical History / Comment(s): pancreatic Medications and Allergies Home Medications Medication Instructions Recorded Confirmed Type Simvastatin [Zocor] 40 mg PO AC-SUPPER 11/24/15 05/12/20 History lisinopriL [Zestril] 20 mg PO BID 11/24/15 05/12/20 History Insulin Aspart [NovoLOG Flexpen] 10 units SQ AC-LUNCH 12/15/18 05/12/20 History Insulin Aspart [NovoLOG Flexpen] 20 units SQ AC-BID@0900,1800 12/15/18 05/12/20 History Insulin Detemir (Levemir) [Levemir] 45 unit SQ DAILY 12/15/18 05/12/20 History Aspirin EC [Ecotrin Low Dose] 81 mg PO DAILY 02/15/20 05/12/20 History atenoloL [Atenolol] 25 mg PO DAILY 02/17/20 05/12/20 History ALPRAZolam [Xanax] 0.5 mg PO BID PRN 05/12/20 05/12/20 History Docusate [Colace] 100 mg PO BID 05/12/20 05/12/20 History HYDROcodone/APAP 7.5-325MG [[place] 1 tab PO Q6H PRN 05/12/20 05/12/20 History 7.5-325] Nitroglycerin Sl Tabs [Nitrostat] 0.4 mg SUBLINGUAL Q5M PRN #20 tab 05/12/20 Rx Allergies Allergy/AdvReac Type Severity Reaction Status Date / Time blue dye Allergy Severe Rash/Hives Verified 05/12/20 09:02 codeine Allergy Itching Verified 05/12/20 09:02 naproxen sodium [From Aleve] Allergy Rash/Hives Verified 05/12/20 09:02 ondansetron [From Zofran] Allergy Rash/Hives Verified 05/12/20 09:02 gabapentin AdvReac Abdominal Verified 05/12/20 09:02 Pain naloxegol [From Movantik] AdvReac Nausea & Verified 05/12/20 09:02 Vomiting Physical Exam Vitals: Vital Signs Temp Pulse Pulse Resp BP BP Pulse Ox 05/12/20 12:00 96 05/12/20 10:40 98.2 F 64 18 147/78 96 05/12/20 10:17 64 18 135/77 98 05/12/20 09:56 166/98 05/12/20 09:51 68 18 189/105 96 05/12/20 08:26 97.6 F 73 16 195/103 99 Intake and Output 05/11/20 05/12/20 05/12/20 22:59 06:59 14:59 Other: Weight 84.096 kg GENERAL: The patient is alert and oriented x3, not in any acute distress. Well developed, well nourished. HEENT: Pupils are round and equally reacting to light. EOMI. No scleral icterus. No conjunctival pallor. Normocephalic, atraumatic. No pharyngeal erythema. No thyromegaly. CARDIOVASCULAR: S1 and S2 present. No murmurs, rubs, or gallops. PULMONARY: Chest is clear to auscultation, no wheezing or crackles. ABDOMEN: Soft, nontender, nondistended, normoactive bowel sounds. No palpable organomegaly. MUSCULOSKELETAL: No joint swelling or deformity. EXTREMITIES: No cyanosis, clubbing, or pedal edema. NEUROLOGICAL: Gross neurological examination did not reveal any focal deficits. SKIN: No rashes. No petechiae Results CBC & Chem 7: 05/12/20 09:05 05/12/20 09:05 Labs: Abnormal Lab Results - Last 24 Hours (Table) 05/12/20 05/12/20 Range/Units 09:05 09:05 WBC 11.2 H (3.8-10.6) k/uL Chloride 108 H (98-107) mmol/L Glucose 123 H (74-99) mg/dL Lipase 449 H (23-300) U/L Thrombosis Risk Factor Assmnt - Choose All That Apply Any of the Below Risk Factors Present?: Yes Each Factor Represents 1 point: Obesity (BMI >25) Other Risk Factors: Yes Each Risk Factor Represents 2 Points: Age 61-74 years Other congenital or acquired thrombophilia - If yes, enter type in comment: No Thrombosis Risk Factor Assessment Total Risk Factor Score: 3 Thrombosis Risk Factor Assessment Level: Moderate Risk
[2020-05-13] MEDS ORDERED: INSULIN DETEMIR (LEVEMIR) 100 UNIT/ML SYR SQ SCH (09:00)
[2020-05-13] MEDS ORDERED: atenoloL 25 MG TAB PO SCH (09:00)
[2020-05-13] MEDS ORDERED: ASPIRIN 325 MG TAB PO SCH (09:00)
[2020-05-13] MEDS ORDERED: ASPIRIN 81 MG PO SCH (09:00)
== END 2020-05-12 14:10 | disposition home or self-care (01) ==
LOC: EC 08:25 → 1SOBS 09:26
PROVIDERS: ADMIT Internal Medicine; ATTEND Internal Medicine
DX: R07.89 Other chest pain (principal); I16.0 Hypertensive urgency; I10 Essential (primary) hypertension; R61 Generalized hyperhidrosis; E78.5 Hyperlipidemia, unspecified; E11.42 Type 2 diabetes mellitus with diabetic polyneuropathy; K21.9 Gastro-esophageal reflux disease without esophagitis; F32.9 Major depressive disorder, single episode, unspecified; H91.90 Unspecified hearing loss, unspecified ear; K58.9 Irritable bowel syndrome, unspecified; G43.909 Migraine, unspecified, not intractable, without status migrainosus; F17.200 Nicotine dependence, unspecified, uncomplicated; R42 Dizziness and giddiness; I08.1 Rheumatic disorders of both mitral and tricuspid valves; R74.8 Abnormal levels of other serum enzymes; K44.9 Diaphragmatic hernia without obstruction or gangrene; F32.2 Major depressive disorder, single episode, severe without psychotic features; F41.9 Anxiety disorder, unspecified; F43.9 Reaction to severe stress, unspecified; M19.90 Unspecified osteoarthritis, unspecified site; E66.9 Obesity, unspecified; Z68.28 Body mass index [BMI] 28.0-28.9, adult; Z79.4 Long term (current) use of insulin; Z79.899 Other long term (current) drug therapy; Z79.82 Long term (current) use of aspirin; Z79.891 Long term (current) use of opiate analgesic; Z88.6 Allergy status to analgesic agent; Z88.5 Allergy status to narcotic agent; Z88.8 Allergy status to other drugs, medicaments and biological substances; Z91.048 Other nonmedicinal substance allergy status; Z86.73 Personal history of transient ischemic attack (TIA), and cerebral infarction without residual deficits; Z87.19 Personal history of other diseases of the digestive system; Z98.2 Presence of cerebrospinal fluid drainage device; Z87.442 Personal history of urinary calculi; Z98.1 Arthrodesis status; Z87.820 Personal history of traumatic brain injury; Z80.51 Family history of malignant neoplasm of kidney; Z80.0 Family history of malignant neoplasm of digestive organs
CPT/HCPCS: 93005 ×2; 96374; 99285; 36415; 80048; 83690; 84484; 85025; G0378; J1885

== ENCOUNTER 2020-06-05 11:47 | Emergency (ER) | payer BC, MEDICARE ==
[2020-06-05 11:58] VITALS: RESP 18
[2020-06-05] MEDS ORDERED: HYDROmorphone 1 MG/ML 1 ML SYRINGE IM STA (12:21)
[2020-06-05] MEDS ORDERED: LIDOCAINE 5% PATCH TOPICAL STA (12:21)
--- NOTE | 2020-06-05 12:27 | ED ---
General Adult HPI - General Chief complaint: Extremity Injury, Upper Stated complaint: rt elbow injury Time Seen by Provider: 06/05/20 12:09 Source: patient Mode of arrival: ambulatory Limitations: no limitations - History of Present Illness Initial comments: Dictation was produced using [employer] dictation software. please excuse any grammatical, word or spelling errors. This patient was cared for during a federal and state declared state of [facility] secondary to Covid 19 Chief Complaint: 64-year-old male presents with thoracic pain. History of Present Illness: Is a 64-year-old male who presents today with thoracic pain. Patient has history of chronic pain. He states that he has pain in between his shoulder blades just towards the right side of his thoracic midline. Patient states that his symptoms have been ongoing for the last 3 weeks. He states that his pain all started 3 weeks ago when he was babysitting his daughters dog after their wedding. He has been playing Frisbee with the dog when he started experiencing this pain. He stopped and that night he woke up with worsening pain in his back. He seems chiropractor and his primary care physician with the symptoms. The ROS documented in this emergency department record has been reviewed and confirmed by me. Those systems with pertinent positive or negative responses have been documented in the HPI. All other systems are other negative and/or noncontributory. PHYSICAL EXAM: General Impression: Alert and oriented x3, not in acute distress HEENT: Normocephalic atraumatic, extra-ocular movements intact, pupils equal and reactive to light bilaterally, mucous membranes moist. Cardiovascular: Heart regular rate and rhythm Chest: Able to complete full sentences, no retractions, no tachypnea Abdomen: abdomen soft, non-tender, non-distended, no organomegaly Musculoskeletal: Pulses present and equal in all extremities, no peripheral edema, tenderness to palpation at the approximately lower thoracic spine just right of midline. Pain is reproducible with palpation and with abduction of the right upper extremity. Motor: no focal deficits noted Neurological: CN II-XII grossly intact, no focal motor or sensory deficits noted Skin: Intact with no visualized rashes Psych: Normal affect and mood ED course: 64-year-old male presents with back pain that started after he was playing Frisbee with his daughters dog. Vital signs upon arrival shows blood pressure of 220/118, rest of vital signs within acceptable limits Patient has reproducible pain at bedside. She reproducible with palpation and abduction of the right upper extremity. Denies any radiating pain to his arms or legs. Does not have any chest pain. Given the duration of the patient's symptoms we will obtain a CT. Laboratory evaluation obtained showing no acute processes. Thoracic aorta CT was obtained showing no evidence of dissection. There is findings of aortic ectasia measuring up to 2.6 cm. There is a pulmonary nodule seen on CT of the chest that will need monitoring. At this point patient's symptoms are likely musculoskeletal due to repetitive use. He is given a Lidoderm patch and intramuscular analgesics. Patient is advised to follow-up with primary care physician for outpatient management of pain symptoms. He is given referral to a pain specialist. - Related Data Home Medications Medication Instructions Recorded Confirmed Simvastatin [Zocor] 40 mg PO AC-SUPPER 11/24/15 05/12/20 lisinopriL [Zestril] 20 mg PO BID 11/24/15 05/12/20 Insulin Aspart [NovoLOG Flexpen] 10 units SQ AC-LUNCH 12/15/18 05/12/20 Insulin Aspart [NovoLOG Flexpen] 20 units SQ AC-BID@0900,1800 12/15/18 05/12/20 Insulin Detemir (Levemir) [Levemir] 45 unit SQ DAILY 12/15/18 05/12/20 Aspirin EC [Ecotrin Low Dose] 81 mg PO DAILY 02/15/20 05/12/20 atenoloL [Atenolol] 25 mg PO DAILY 02/17/20 05/12/20 ALPRAZolam [Xanax] 0.5 mg PO BID PRN 05/12/20 05/12/20 Docusate [Colace] 100 mg PO BID 05/12/20 05/12/20 HYDROcodone/APAP 7.5-325MG [[place] 1 tab PO Q6H PRN 05/12/20 05/12/20 7.5-325] Previous Rx's Medication Instructions Recorded Nitroglycerin Sl Tabs [Nitrostat] 0.4 mg SUBLINGUAL Q5M PRN #20 tab 05/12/20 Allergies Allergy/AdvReac Type Severity Reaction Status Date / Time blue dye Allergy Severe Rash/Hives Verified 06/05/20 11:58 codeine Allergy Itching Verified 06/05/20 11:58 naproxen sodium [From Aleve] Allergy Rash/Hives Verified 06/05/20 11:58 ondansetron [From Zofran] Allergy Rash/Hives Verified 06/05/20 11:58 gabapentin AdvReac Abdominal Verified 06/05/20 11:58 Pain naloxegol [From Movantik] AdvReac Nausea & Verified 06/05/20 11:58 Vomiting Review of Systems ROS Statement: Those systems with pertinent positive or pertinent negative responses have been documented in the HPI. ROS Other: All systems not noted in ROS Statement are negative. 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 History of Any Multi-Drug Resistant Organisms: None Reported Past Surgical History: Back Surgery, Bowel Resection, Orthopedic Surgery Additional Past Surgical History / Comment(s): 02/18/20 Robot assisted laparoscopy/extensive lysis of adhesions, COMPUTATIONAL SCIENCES PROFESSOR shunt, 2020 R elbow tendon surgery, L knee arthroscopy, L hand amp d/t industrial accident, cervical fusion, bowel resection d/t diverticulitis, EGD, colonoscopy, hemorrhoidectomy, Past Anesthesia/Blood Transfusion Reactions: No Reported Reaction Past Psychological History: Anxiety, Depression Smoking Status: Current every day smoker Past Alcohol Use History: None Reported Past Drug Use History: Marijuana - Past Family History Mother Family Medical History: Cancer Additional Family Medical History / Comment(s): kidney Father Family Medical History: Cancer Additional Family Medical History / Comment(s): pancreatic General Exam Limitations: no limitations Course Vital Signs 06/05/20 11:55 Temperature 98 F Pulse Rate 75 Respiratory 18 Rate Blood Pressure 220/118 O2 Sat by Pulse 100 Oximetry Medical Decision Making - Lab Data Result diagrams: 06/05/20 12:31 06/05/20 12:31 Lab Results 06/05/20 06/05/20 06/05/20 Range/Units 12:31 12:31 12:31 WBC 10.8 H (3.8-10.6) k/uL RBC 5.59 (4.30-5.90) m/uL Hgb 17.7 H (13.0-17.5) gm/dL Hct 53.9 H (39.0-53.0) % MCV 96.4 (80.0-100.0) fL MCH 31.6 (25.0-35.0) pg MCHC 32.8 (31.0-37.0) g/dL RDW 13.5 (11.5-15.5) % Plt Count 253 (150-450) k/uL Neutrophils % 72 % Lymphocytes % 17 % Monocytes % 6 % Eosinophils % 3 % Basophils % 1 % Neutrophils # 7.8 H (1.3-7.7) k/uL Lymphocytes # 1.8 (1.0-4.8) k/uL Monocytes # 0.6 (0-1.0) k/uL Eosinophils # 0.4 (0-0.7) k/uL Basophils # 0.1 (0-0.2) k/uL PT 11.4 (9.0-12.0) sec INR 1.1 (<1.2) APTT 26.3 (22.0-30.0) sec Sodium 138 (137-145) mmol/L Potassium 4.5 (3.5-5.1) mmol/L Chloride 108 H (98-107) mmol/L Carbon Dioxide 23 (22-30) mmol/L Anion Gap 7 mmol/L BUN 20 (9-20) mg/dL Creatinine 0.89 (0.66-1.25) mg/dL Est GFR (CKD-EPI)AfAm >90 (>60 ml/min/1.73 sqM) Est GFR (CKD-EPI)NonAf >90 (>60 ml/min/1.73 sqM) Glucose 140 H (74-99) mg/dL Calcium 9.3 (8.4-10.2) mg/dL Disposition Clinical Impression: Back pain Disposition: HOME SELF-CARE Condition: Good Instructions (If sedation given, give patient instructions): Back Pain (ED) Additional Instructions: There was an incidental finding seen on her CT that he should follow-up with her primary care physician about Is patient prescribed a controlled substance at d/c from ED?: No Referrals: Dru Colby MD [Primary Care Provider] - 1-2 days Lavonne Oakley MD [STAFF PHYSICIAN] - 1-2 days Time of Disposition: 14:48
[2020-06-05 12:44] LABS: Basophils # (A) 0.1 k/uL (0-0.2); Basophils % (A) 1 %; Eosinophils # (A) 0.4 k/uL (0-0.7); Eosinophils % (A) 3 %; HCT 53.9 % (39.0-53.0); HGB 17.7 gm/dL (13.0-17.5); Lymphocytes # (A) 1.8 k/uL (1.0-4.8); Lymphocytes % (A) 17 %; MCH 31.6 pg (25.0-35.0); MCHC 32.8 g/dL (31.0-37.0); MCV 96.4 fL (80.0-100.0); Mean Platelet Volume 6.6; Monocytes # (A) 0.6 k/uL (0-1.0); Monocytes % (A) 6 %; Neutrophils # (A) 7.8 k/uL (1.3-7.7); Neutrophils % (A) 72 %; Platelet Count 253 k/uL (150-450); RBC 5.59 m/uL (4.30-5.90); RDW 13.5 % (11.5-15.5); WBC 10.8 k/uL (3.8-10.6)
[2020-06-05 12:52] LABS: INR 1.1 (<1.2); Partial Thromboplastin Time 26.3 sec (22.0-30.0); Prothrombin Time 11.4 sec (9.0-12.0)
[2020-06-05 13:01] LABS: African American GFR (CKD) >90 (>60 ml/min/1.73 sqM); Anion Gap 7 mmol/L; Blood Urea Nitrogen 20 mg/dL (9-20); Calcium 9.3 mg/dL (8.4-10.2); Carbon Dioxide 23 mmol/L (22-30); Chloride 108 mmol/L (98-107); Glucose 140 mg/dL (74-99); Non-African American GFR(CKD) >90 (>60 ml/min/1.73 sqM); Potassium 4.5 mmol/L (3.5-5.1); Sodium 138 mmol/L (137-145)
--- NOTE | 2020-06-05 14:19 | CT ---
EXAMINATION TYPE: CT angio thor/abd pel aorta DATE OF EXAM: 06/05/2020 COMPARISON: 03/13/2020 HISTORY: 64-year-old male Right sided upper back pain with radiating pain down the right arm TECHNIQUE: Contiguous axial scanning of the chest, abdomen, and pelvis performed without and with IV Contrast, patient injected with 100 mL of Isovue 370. Coronal/sagittal MIP reconstructions performed. 3-D reconstructions generated on a dedicated independent workstation. CT DLP: 1373.9 mGycm Automated exposure control for dose reduction was used. FINDINGS: CHEST: Heart normal size without pericardial effusion. Scattered LCA and LAD coronary artery calcifications. The aorta is normal caliber with conventional arch vessel branching anatomy and scattered mild atelec tatic changes. Initial noncontrast images show no evidence for acute intramural hematoma. No evidence for aortic dis section. Large caliber to the main right and left pulmonary arteries and 2.8 and 3.0 cm, respectively, suggest ing underlying pulmonary arterial hypertension. This can be further correlated clinically. No thoracic lymphadenopathy by CT size criteria. [place]andy atelectasis at the right base. Mild emphysematous change greatest in the upper lungs. No cons olidation or pleural effusion. Some peribronchial vascular opacity, possible nodule along the central right lower lobe, referred to axial image C2 and 63. Central endobronchial opacification extends to the posterior basilar segmental branch of the right lower lobe. Possible 8mm right hilar pulmonary nodule or lymph node, axial image 57. Otherwise, no consolidation or pleural effusion. ABDOMEN: Tiny hiatal hernia. Arterial phase imaging of the liver shows no gross adenopathy. Arterial phase imaging of the gallblad areli, right adrenal gland, spleen, and pancreas appear within normal limits. Unchanged diffuse thickening of the left adrenal gland without discrete nodularity. Cysts within the right kidney measure 2.3 cm and 5.3 cm. Tiny cortical subcentimeter hypodensities in the left kidney too small fractured CT characterization, likely cysts. No dilated small bowel, free fluid, or free air. No mesenteric or retroperitoneal lymphadenopathy. Normal appendix. Mild to moderate stool in the right side of the abdomen. Prior resection and re-anas tomosis at the rectosigmoid junction staple line. RELIEF PHARMACIST shunt catheter terminates within the right lower quadrant anteriorly. [id number] atherosclerotic calcifications abdominal aorta. Mild atherosclerotic changes at the origin of the SMA. Bilateral coffey renal arteries are patent as is the celiac axis. Mild to moderate atherosclerotic narrowing at the origin of the CAR[place]. There is focal fusiform ectasia of the infrarenal abdominal aorta and 2.6 cm as measured on coronal series. Mild to moderate scattered plaque and calcifications within the proximal aspect of the lateral common iliac arteries. PELVIS: Bladder is urine distended. Prostate gland enlargement 5.5 cm wide. Possible slight eccentric thicken ing along the right lateral wall of the rectum, reference axial image 198. No abnormal fluid collecti on in the pelvis or pelvic lymphadenopathy. BONES: Mild degenerative change of the hips. Facet arthropathy lower lumbar spine. Endplate spondylosis mid to lower thoracic spine. Partially visualized ACDF hardware. IMPRESSION: 1. NO EVIDENCE FOR AORTIC DISSECTION OR ACUTE AORTIC INJURY. 2. SCATTERED MILD TO MODERATE ATHEROSCLEROTIC CHANGES IN THE ABDOMINAL AORTA WITH FUSIFORM INFRARENAL AORTIC ECTASIA UP TO 2.6 CM. NO AAA. 3. COPD WITH MILD EMPHYSEMA. THERE ARE FINDINGS THAT SUGGEST PULMONARY ARTERIAL HYPERTENSION. CLINICA LLY CORRELATE. 4. FOCAL CENTRAL OPACITY WITHIN THE RIGHT LOWER LOBE AND EITHER AN ADJACENT 8 MM PULMONARY NODULE OR RIGHT HILAR LYMPH NODE. 3 MONTH FOLLOW-UP CT RECOMMENDED TO EXCLUDE A SMALL DEVELOPING MASS. CORRELAT E FOR ANY SYMPTOMS OF AN EARLY PNEUMONIA. 5. POSSIBLE SLIGHT ECCENTRIC THICKENING ALONG THE RIGHT LATERAL WALL OF THE RECTUM JUST BELOW THE PAT IENT'S PRIOR SURGERY AND REANASTOMOSIS. FINDINGS COULD REFLECT SOME ADHERENT STOOL. DIRECT VISUALIZAT ION IF CLINICALLY INDICATED TO EXCLUDE A MUCOSAL LESION HERE. 6. PROSTATOMEGALY AT 5.5 CM WIDE. TINY HIATAL HERNIA
[2020-06-05 15:08] VITALS: BP 207/105; PULSE 71; TEMP 97.8
== END 2020-06-05 15:00 | disposition home or self-care (01) ==
LOC: EC 11:47
DX: M54.9 Dorsalgia, unspecified (principal); E11.40 Type 2 diabetes mellitus with diabetic neuropathy, unspecified; E78.5 Hyperlipidemia, unspecified; I10 Essential (primary) hypertension; J44.9 Chronic obstructive pulmonary disease, unspecified; K21.9 Gastro-esophageal reflux disease without esophagitis; F17.200 Nicotine dependence, unspecified, uncomplicated; Z79.4 Long term (current) use of insulin; Z79.82 Long term (current) use of aspirin; Z79.899 Other long term (current) drug therapy; Z91.048 Other nonmedicinal substance allergy status; Z88.5 Allergy status to narcotic agent; Z88.6 Allergy status to analgesic agent; Z88.8 Allergy status to other drugs, medicaments and biological substances; Z86.73 Personal history of transient ischemic attack (TIA), and cerebral infarction without residual deficits; Z98.2 Presence of cerebrospinal fluid drainage device
CPT/HCPCS: 36415; 80048; 85025; 85610; 85730; 71275; 74174; 99284; 96372; J1170; Q9967

== ENCOUNTER 2020-08-18 14:34 | Inpatient (IN) | payer BC, MEDICARE ==
[2020-08-18] MEDS ORDERED: ASPIRIN 81 MG PO STA (15:07)
[2020-08-18 15:08] LABS: Basophils # (A) 0.2 k/uL (0-0.2); Basophils % (A) 1 %; Eosinophils # (A) 0.3 k/uL (0-0.7); Eosinophils % (A) 2 %; HCT 51.7 % (39.0-53.0); HGB 16.9 gm/dL (13.0-17.5); Lymphocytes % (A) 15 %; MCH 31.3 pg (25.0-35.0); MCHC 32.8 g/dL (31.0-37.0); MCV 95.3 fL (80.0-100.0); Mean Platelet Volume 6.7; Monocytes # (A) 0.7 k/uL (0-1.0); Monocytes % (A) 5 %; Neutrophils # (A) 10.2 k/uL (1.3-7.7); Neutrophils % (A) 76 %; Platelet Count 269 k/uL (150-450); RBC 5.42 m/uL (4.30-5.90); RDW 13.8 % (11.5-15.5); WBC 13.5 k/uL (3.8-10.6)
--- NOTE | 2020-08-18 15:09 | ED ---
General Adult HPI - General Chief complaint: Chest Pain Stated complaint: Chest Pain-Sent By Time Seen by Provider: 08/18/20 14:56 Source: patient Mode of arrival: ambulatory Limitations: no limitations - History of Present Illness Initial comments: Dictation was produced using [employer] dictation software. please excuse any grammatical, word or spelling errors. This patient was cared for during a federal and state declared state of emergency secondary to Covid 19 Chief Complaint: 64-year-old male with significant past medical history presents to the emergency department after be seen by a nurse practitioner at his PCPs office for chest pain History of Present Illness: 64-year-old male who presents to the emergency department. He is at his primary care physician's office for decreased libido. He was seen by the nurse practitioner Mike Finch. He told the nurse practitioner that he was having exertional chest discomfort. He was then instructed to come to the emergency department for further care. Patient denies any symptoms at this time. States his symptoms are only with exertion. He absolutely refuses to be admitted to the hospital. Patient takes 81 mg of aspirin daily. Patient denies any radiation of symptoms his jaw or upper extremity. No associated diaphoresis or nausea. Denies any dyspnea. Scott garcia this has been ongoing for the last several weeks. The ROS documented in this emergency department record has been reviewed and confirmed by me. Those systems with pertinent positive or negative responses have been documented in the HPI. All other systems are other negative and/or noncontributory. PHYSICAL EXAM: General Impression: Alert and oriented x3, not in acute distress HEENT: Normocephalic atraumatic, extra-ocular movements intact, pupils equal and reactive to light bilaterally, mucous membranes moist. Cardiovascular: Heart regular rate and rhythm Chest: Able to complete full sentences, no retractions, no tachypnea Abdomen: abdomen soft, non-tender, non-distended, no organomegaly Musculoskeletal: Left upper extremity below the elbow stump, Pulses present and equal in all extremities, no peripheral edema Motor: no focal deficits noted Neurological: CN II-XII grossly intact, no focal motor or sensory deficits noted Skin: Intact with no visualized rashes Psych: Normal affect and mood ED course: 64-year-old male with several cardiac comorbid is presents to the emergency department for chest pain workup. Patient has multiple risk factors including CVA, diabetes, dyslipidemia, hypertension, renal disease. Signs upon arrival are within acceptable limits. EKG does not show any signs of infarction. EKG interpretation: Ventricular rate 83, normal sinus rhythm,. Interval 160, QRS 92, QTc 439. No AL prolongation, no QTC prolongation, no ST or T-wave changes noted. EKG compared to 05/12/2020 showing no changes. Overall, this EKG is unremarkable At 4 PM patient requested to have his IV taken out so he can leave. Patient will leave AGAINST MEDICAL ADVICE. Patient workup is not yet completed. His labs do show mild degree of pancreatitis. All rest of labs that are available are unremarkable. Pending troponin level. - Related Data Home Medications Medication Instructions Recorded Confirmed Simvastatin [Zocor] 40 mg PO AC-SUPPER 11/24/15 05/12/20 lisinopriL [Zestril] 20 mg PO BID 11/24/15 05/12/20 Insulin Aspart [NovoLOG Flexpen] 10 units SQ AC-LUNCH 12/15/18 05/12/20 Insulin Aspart [NovoLOG Flexpen] 20 units SQ AC-BID@0900,1800 12/15/18 05/12/20 Insulin Detemir (Levemir) [Levemir] 45 unit SQ DAILY 12/15/18 05/12/20 Aspirin EC [Ecotrin Low Dose] 81 mg PO DAILY 02/15/20 05/12/20 atenoloL [Atenolol] 25 mg PO DAILY 02/17/20 05/12/20 ALPRAZolam [Xanax] 0.5 mg PO BID PRN 05/12/20 05/12/20 Docusate [Colace] 100 mg PO BID 05/12/20 05/12/20 HYDROcodone/APAP 7.5-325MG [Check 1 tab PO Q6H PRN 05/12/20 05/12/20 7.5-325] Previous Rx's Medication Instructions Recorded Nitroglycerin Sl Tabs [Nitrostat] 0.4 mg SUBLINGUAL Q5M PRN #20 tab 05/12/20 Allergies Allergy/AdvReac Type Severity Reaction Status Date / Time blue dye Allergy Severe Rash/Hives Verified 08/18/20 14:51 codeine Allergy Itching Verified 08/18/20 14:51 naproxen sodium [From Aleve] Allergy Rash/Hives Verified 08/18/20 14:51 ondansetron [From Zofran] Allergy Rash/Hives Verified 08/18/20 14:51 gabapentin AdvReac Abdominal Verified 08/18/20 14:51 Pain naloxegol [From Movantik] AdvReac Nausea & Verified 08/18/20 14:51 Vomiting Review of Systems ROS Statement: Those systems with pertinent positive or pertinent negative responses have been documented in the HPI. ROS Other: All systems not noted in ROS Statement are negative. Past Medical History Past Medical History: Chest Pain / Angina, CVA/TIA, Diabetes Mellitus, GERD/Reflux, Hearing Disorder / Deafness, Hyperlipidemia, Hypertension, Renal Disease Additional Past Medical History / Comment(s): IDDM type II, neuropathy bilateral feet, CVA with no residual, TIA, hydrocephalus with TRAIN EXAMINER shunt, recent admissions for abdominal pain/severe depression, IBS, diverticulitis/bowel resection, hiatal hernia, DJD, occasional cervical pain, migraines, skull/head injury at age 19 with lengthy hospitalization, nephrolithiasis-passed stone on his own, [place] bilaterally. History of Any Multi-Drug Resistant Organisms: None Reported Past Surgical History: Back Surgery, Bowel Resection, Orthopedic Surgery Additional Past Surgical History / Comment(s): 02/18/20 Robot assisted laparoscopy/extensive lysis of adhesions, TRAIN EXAMINER shunt, 2020 R elbow tendon surgery, L knee arthroscopy, L hand amp d/t industrial accident, cervical fusion, bowel resection d/t diverticulitis, EGD, colonoscopy, hemorrhoidectomy, Past Anesthesia/Blood Transfusion Reactions: No Reported Reaction Past Psychological History: Anxiety, Depression Smoking Status: Current every day smoker Past Alcohol Use History: None Reported Past Drug Use History: Marijuana - Past Family History Mother Family Medical History: Cancer Additional Family Medical History / Comment(s): kidney Father Family Medical History: Cancer Additional Family Medical History / Comment(s): pancreatic General Exam Limitations: no limitations Course Vital Signs 08/18/20 08/18/20 14:48 14:56 Temperature 97.9 F Pulse Rate 82 Pulse Rate [ 70 Chemistry 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 Chair ] Respiratory 20 Rate Blood Pressure 180/94 O2 Sat by Pulse 98 Oximetry Medical Decision Making - Lab Data Result diagrams: 08/18/20 15:01 08/18/20 15:01 Lab Results 08/18/20 08/18/20 08/18/20 Range/Units 15:01 15:01 15:01 WBC 13.5 H (3.8-10.6) k/uL RBC 5.42 (4.30-5.90) m/uL Hgb 16.9 (13.0-17.5) gm/dL Hct 51.7 (39.0-53.0) % MCV 95.3 (80.0-100.0) fL MCH 31.3 (25.0-35.0) pg MCHC 32.8 (31.0-37.0) g/dL RDW 13.8 (11.5-15.5) % Plt Count 269 (150-450) k/uL MPV 6.7 Neutrophils % 76 % Lymphocytes % 15 % Monocytes % 5 % Eosinophils % 2 % Basophils % 1 % Neutrophils # 10.2 H (1.3-7.7) k/uL Lymphocytes # 2.0 (1.0-4.8) k/uL Monocytes # 0.7 (0-1.0) k/uL Eosinophils # 0.3 (0-0.7) k/uL Basophils # 0.2 (0-0.2) k/uL PT 10.9 (9.0-12.0) sec INR 1.1 (<1.2) APTT 24.2 (22.0-30.0) sec Sodium 137 (137-145) mmol/L Potassium 4.5 (3.5-5.1) mmol/L Chloride 105 (98-107) mmol/L Carbon Dioxide 26 (22-30) mmol/L Anion Gap 6 mmol/L BUN 24 H (9-20) mg/dL Creatinine 1.00 (0.66-1.25) mg/dL Est GFR (CKD-EPI)AfAm >90 (>60 ml/min/1.73 sqM) Est GFR (CKD-EPI)NonAf 79 (>60 ml/min/1.73 sqM) Glucose 221 H (74-99) mg/dL Calcium 9.4 (8.4-10.2) mg/dL Magnesium 2.0 (1.6-2.3) mg/dL Total Bilirubin 0.7 (0.2-1.3) mg/dL AST 18 (17-59) U/L ALT 21 (4-49) U/L Alkaline Phosphatase 94 (38-126) U/L Total Protein 6.7 (6.3-8.2) g/dL Albumin 4.2 (3.5-5.0) g/dL Lipase 527 H (23-300) U/L Disposition Clinical Impression: Chest pain Disposition: Left Against Medical Advice Condition: Fair Instructions (If sedation given, give patient instructions): Chest Pain (ED) Is patient prescribed a controlled substance at d/c from ED?: No Referrals: Dru Colby MD [Primary Care Provider] - 1-2 days Time of Disposition: 16:01
--- NOTE | 2020-08-18 15:18 | XR ---
EXAMINATION TYPE: XR chest 1V portable DATE OF EXAM: 08/18/2020 COMPARISON: 05/12/2020 INDICATION: Chest pain COPD TECHNIQUE: Frontal and lateral views of the chest are obtained. FINDINGS: The heart size is upper limits of normal. The pulmonary vasculature is normal. The lungs are clear. Shunt-like catheter transverses the thorax. IMPRESSION: 1. No acute pulmonary process.
[2020-08-18 15:20] LABS: INR 1.1 (<1.2); Partial Thromboplastin Time 24.2 sec (22.0-30.0); Prothrombin Time 10.9 sec (9.0-12.0)
[2020-08-18 15:37] LABS: ALT 21 U/L (4-49); AST 18 U/L (17-59); African American GFR (CKD) >90 (>60 ml/min/1.73 sqM); Albumin 4.2 g/dL (3.5-5.0); Alkaline Phosphatase 94 U/L (38-126); Anion Gap 6 mmol/L; Blood Urea Nitrogen 24 mg/dL (9-20); Calcium 9.4 mg/dL (8.4-10.2); Carbon Dioxide 26 mmol/L (22-30); Chloride 105 mmol/L (98-107); Glucose 221 mg/dL (74-99); Lipase 527 U/L (23-300); Non-African American GFR(CKD) 79 (>60 ml/min/1.73 sqM); Potassium 4.5 mmol/L (3.5-5.1); Sodium 137 mmol/L (137-145); Total Bilirubin 0.7 mg/dL (0.2-1.3); Total Protein 6.7 g/dL (6.3-8.2)
[2020-08-18] MEDS ORDERED: HEPARIN SODIUM,PORCINE 5,000 UNIT/ML 1 ML VIAL IV ONE (16:20)
--- NOTE | 2020-08-18 16:20 | ED ---
Medical Decision Making - Medical Decision Making Patient did speak to his who encouraged him to be admitted to the hospital. Patient given aspirin and started on heparin for non-ST segment elevation LA. Currently pain-free at this time. Patient will be admitted to [facility] with cardiology on consult. - Lab Data Result diagrams: 08/18/20 15:01 08/18/20 15:01 Lab Results 08/18/20 08/18/20 08/18/20 Range/Units 15:01 15:01 15:01 WBC 13.5 H (3.8-10.6) k/uL RBC 5.42 (4.30-5.90) m/uL Hgb 16.9 (13.0-17.5) gm/dL Hct 51.7 (39.0-53.0) % MCV 95.3 (80.0-100.0) fL MCH 31.3 (25.0-35.0) pg MCHC 32.8 (31.0-37.0) g/dL RDW 13.8 (11.5-15.5) % Plt Count 269 (150-450) k/uL MPV 6.7 Neutrophils % 76 % Lymphocytes % 15 % Monocytes % 5 % Eosinophils % 2 % Basophils % 1 % Neutrophils # 10.2 H (1.3-7.7) k/uL Lymphocytes # 2.0 (1.0-4.8) k/uL Monocytes # 0.7 (0-1.0) k/uL Eosinophils # 0.3 (0-0.7) k/uL Basophils # 0.2 (0-0.2) k/uL PT 10.9 (9.0-12.0) sec INR 1.1 (<1.2) APTT 24.2 (22.0-30.0) sec Sodium 137 (137-145) mmol/L Potassium 4.5 (3.5-5.1) mmol/L Chloride 105 (98-107) mmol/L Carbon Dioxide 26 (22-30) mmol/L Anion Gap 6 mmol/L BUN 24 H (9-20) mg/dL Creatinine 1.00 (0.66-1.25) mg/dL Est GFR (CKD-EPI)AfAm >90 (>60 ml/min/1.73 sqM) Est GFR (CKD-EPI)NonAf 79 (>60 ml/min/1.73 sqM) Glucose 221 H (74-99) mg/dL Calcium 9.4 (8.4-10.2) mg/dL Magnesium 2.0 (1.6-2.3) mg/dL Total Bilirubin 0.7 (0.2-1.3) mg/dL AST 18 (17-59) U/L ALT 21 (4-49) U/L Alkaline Phosphatase 94 (38-126) U/L Troponin I (0.000-0.034) ng/mL Total Protein 6.7 (6.3-8.2) g/dL Albumin 4.2 (3.5-5.0) g/dL Lipase 527 H (23-300) U/L 08/18/20 Range/Units 15:01 WBC (3.8-10.6) k/uL RBC (4.30-5.90) m/uL Hgb (13.0-17.5) gm/dL Hct (39.0-53.0) % MCV (80.0-100.0) fL MCH (25.0-35.0) pg MCHC (31.0-37.0) g/dL RDW (11.5-15.5) % Plt Count (150-450) k/uL MPV Neutrophils % % Lymphocytes % % Monocytes % % Eosinophils % % Basophils % % Neutrophils # (1.3-7.7) k/uL Lymphocytes # (1.0-4.8) k/uL Monocytes # (0-1.0) k/uL Eosinophils # (0-0.7) k/uL Basophils # (0-0.2) k/uL PT (9.0-12.0) sec INR (<1.2) APTT (22.0-30.0) sec Sodium (137-145) mmol/L Potassium (3.5-5.1) mmol/L Chloride (98-107) mmol/L Carbon Dioxide (22-30) mmol/L Anion Gap mmol/L BUN (9-20) mg/dL Creatinine (0.66-1.25) mg/dL Est GFR (CKD-EPI)AfAm (>60 ml/min/1.73 sqM) Est GFR (CKD-EPI)NonAf (>60 ml/min/1.73 sqM) Glucose (74-99) mg/dL Calcium (8.4-10.2) mg/dL Magnesium (1.6-2.3) mg/dL Total Bilirubin (0.2-1.3) mg/dL AST (17-59) U/L ALT (4-49) U/L Alkaline Phosphatase (38-126) U/L Troponin I 0.058 H* (0.000-0.034) ng/mL Total Protein (6.3-8.2) g/dL Albumin (3.5-5.0) g/dL Lipase (23-300) U/L Disposition Clinical Impression: Chest pain Disposition: ADMITTED IP TO THIS HOSP Condition: Fair Instructions (If sedation given, give patient instructions): Chest Pain (ED) Referrals: Dru Colby MD [Primary Care Provider] - 1-2 days Decision Time: 16:20 Procedures - [employer] Protocol (Time Out) Nurse: Margarita Lentz
[2020-08-18] MEDS ORDERED: HEPARIN SOD,PORK IN 0.45% NACL 25,000 UNIT in 0.45% NACL 1 250ML.BAG IV SCH (16:30)
[2020-08-18] MEDS ORDERED: atenoloL 25 MG TAB PO SCH (17:00)
[2020-08-18] MEDS: INSULIN ASPART (NovoLOG) 100 UNIT/ML VIAL SQ SCH ×2 (17:31→20:39)
[2020-08-18 17:38] LABS: Glucose,Whole Blood 143 mg/dL (75-99)
[2020-08-18] MEDS ORDERED: TEMAZEPAM 15 MG CAP PO PRN (19:24)
--- NOTE | 2020-08-18 19:56 | HP ---
HISTORY AND PHYSICAL DATE OF SERVICE: 08/18/2020 CHIEF COMPLAINT: Chest pain. HISTORY OF PRESENT ILLNESS: This 64-year-old gentleman with a past medical history of multiple medical problems, including history of CVA, TIA, diabetes mellitus, GERD, hypertension, hyperlipidemia, anxiety, depression, being followed by Dr. Dru Colby in the outpatient setting, was complaining of chest pain. The patient was having exertional chest pain which was mostly in the central part and left side of the chest, and the patient was not very keen on getting admitted to the hospital, but the troponin was found to be 0.058, and the patient was admitted for further evaluation and treatment. Lipase was 527. There is no history of any fever, rigor or chills. No history of headache, loss of consciousness, seizures at this time. In past, the patient apparently was unable to tolerate a stress test. PAST MEDICAL HISTORY: Chest pain, angina, CVA, TIA, diabetes mellitus, GERD, hypertension, hyperlipidemia. HOME MEDICATIONS: Medications prior to admission include Zestril, Tylenol, Zocor, Nitrostat, Levemir, NovoLog, hydrochlorothiazide, Colace and Ecotrin. ALLERGIES: BLUE DYE, CODEINE, ALEVE, ZOFRAN, GABAPENTIN FAMILY HISTORY: History of kidney cancer in the family. SOCIAL HISTORY: History of smoking, continued and ongoing. REVIEW OF SYSTEMS: ENT: No diminished hearing. No diminished vision. CARDIOVASCULAR SYSTEM: As mentioned earlier. RESPIRATORY SYSTEM: As mentioned earlier. GI: No nausea, vomiting. : No dysuria or retention. NERVOUS SYSTEM: No numbness, weakness. ALLERGY/IMMUNOLOGY: No asthma, hayfever. MUSCULOSKELETAL: As mentioned earlier. HEMATOLOGY/ONCOLOGY: No history of anemia. ENDOCRINE: History of diabetes. No history of hypothyroidism. CONSTITUTIONAL: As mentioned earlier. DERMATOLOGY: Negative. RHEUMATOLOGY: Negative. PSYCHIATRY: As mentioned earlier. PHYSICAL EXAMINATION: Patient alert and oriented x3. Pulse is 81, blood pressure 180/91, respiration 18, temperature 98 degrees, pulse ox 97% on 2 L. HEENT: Conjunctivae normal. NECK: No jugular venous distention. CARDIOVASCULAR SYSTEM: S1, S2 muffled. RESPIRATORY SYSTEM: Breath sounds diminished at the bases. No rhonchi. No crackles. ABDOMEN: Soft, non-tender. No mass palpable. LEGS: No edema. No swelling. NERVOUS SYSTEM: Higher functions as mentioned earlier. Moves all 4 limbs. No focal motor or sensory deficit. LYMPHATICS: No lymph node palpable in neck, axillae or groin. SKIN: No ulcer, rash, bleeding. JOINTS: No active deforming arthropathy. LABS: WBC 13.4, hemoglobin 16.9. Sodium 137, potassium 4.5, glucose 143. ASSESSMENT: 1. Chest pain with possible acute oqy-CP-dxhlhmh-elevation myocardial infarction. 2. Troponin 0.058. 3. Elevated lipase. 4. Increased white count. 5. History of chest pain, angina. 6. History of cerebrovascular accident, transient ischemic attack. 7. Diabetes mellitus, type 2. 8. Gastroesophageal reflux disease. 9. Hard of hearing. 10.Hypertension. 11.Hyperlipidemia. 12.History of bilateral peripheral neuropathy. 13.History of cerebrovascular accident. 14.History of hydrocephalus with CONTROL SYSTEMS DESIGNER shunt. 15.History of depression. 16.History of irritable bowel syndrome. 17.History of degenerative joint disease. 18.History of migraine. 19.History of nephrolithiasis. 20.History of back surgery. 21.History of bowel resection. 22.History of anxiety, depression. 23.History of nicotine dependence, continued and ongoing. RECOMMENDATIONS AND DISCUSSION: In this 64-year-old gentleman who presented with multiple complex medical issues, we will monitor the patient closely, continue the current medications, continue symptomatic treatment. Otherwise, unstable angina protocol. Cardiology consultation. Antiplatelet agent, beta blockers. Prognosis guarded because of multiple complex medical issues. Possible cardiac cath and medication reconciliation will be done. A copy of this dictation is being forwarded to Dr. Colby, who is the primary physician. MMELIASL / ASHLEYN: [id number] / [facility]
[2020-08-18 20:13] LABS: Glucose,Whole Blood 172 mg/dL (75-99)
[2020-08-18] MEDS: lisinopriL 20 MG TAB PO SCH (20:32)
[2020-08-18] MEDS: METOPROLOL TARTRATE 50 MG TAB PO SCH ×3 (20:34→23:07)
[2020-08-18] MEDS: DOCUSATE 100 MG CAP PO SCH (20:34)
[2020-08-18 22:58] LABS: Glucose,Whole Blood 144 mg/dL (75-99)
[2020-08-18] MEDS: NITROGLYCERIN SL TABS 0.4 MG TAB SUBLINGUAL PRN ×2 (23:05→23:10)
[2020-08-19] MEDS ORDERED: LIDOCAINE 1% INJ 10MG/ML (20 ML MDV) ONE (00:15)
[2020-08-19] MEDS ORDERED: VERAPAMIL 2.5 MG/ML 2 ML AMP ONE (00:15)
[2020-08-19] MEDS ORDERED: HEPARIN SODIUM 1,000 UN/ML (10ML VL) ONE (00:15)
[2020-08-19] MEDS ORDERED: fentaNYL (PF) 50 MCG/ML 2 ML AMP ONE (00:15)
[2020-08-19] MEDS ORDERED: IV FLUID CONTINUATION 1,000 ML IV ONE (00:26)
[2020-08-19] MEDS ORDERED: MIDAZOLAM 2 MG/2 ML VIAL IVP ONE (00:44)
[2020-08-19] MEDS ORDERED: fentaNYL (PF) 50 MCG/ML 2 ML AMP IVP ONE (00:44)
[2020-08-19] MEDS ORDERED: LIDOCAINE 1% INJ 10MG/ML (20 ML MDV) SQ ONE (00:45)
[2020-08-19] MEDS ORDERED: IOPAMIDOL-370 125ML BTL INJ ONE (01:03)
[2020-08-19] MEDS ORDERED: RX INFO: IV CONTRAST WAS GIVEN 1 EACH MISC MISCELLANE PRN (01:08)
[2020-08-19] MEDS ORDERED: SODIUM CHLORIDE 0.9% 1,000 ML IV SCH (01:15)
--- NOTE | 2020-08-19 01:18 | P.CRDCN ---
History of Present Illness Consult date: 08/19/20 Chief complaint: Chest pain History of present illness: This is a 64-year-old gentleman with a past medical history significant for diabetes and hypertension and dyslipidemia and history of smoking and also history of TIA who presented to the hospital complaining of chest discomfort. Apparently the patient presented to the emergency department few days ago but the left AGAINST MEDICAL ADVICE. This time he presented again complaining of chest discomfort and because of that he was admitted to the hospital. The patient described his chest discomfort as a heaviness on the chest without any radiation to the arms or neck or shoulders and without any associated symptoms. He was ruled in for acute coronary event. Because he continues to have ongoing chest discomfort and because of the abnormal cardiac enzymes a heart catheterization was advised. Heart catheterization revealed intermediate to severe disease involving the mid and distal right coronary artery and also the left circumflex coronary artery. No evidence of high-grade stenosis or critical disease was seen. Maximize medical treatment was advised. Please note that the patient blood pressure was elevated throughout his hospital stay. Currently he is on metoprolol 50 mg by mouth twice a day unless chocolate 20 mg by mouth daily. Also he is on aspirin. The EKG showed sinus rhythm with nonspecific changes in the inferior and lateral leads. Past Medical History Past Medical History: Chest Pain / Angina, CVA/TIA, Diabetes Mellitus, GERD/Reflux, Hearing Disorder / Deafness, Hyperlipidemia, Hypertension, Renal Disease Additional Past Medical History / Comment(s): IDDM type II, neuropathy bilateral feet, CVA with no residual, TIA, hydrocephalus with CIRCULATION MANAGER shunt, recent admissions for abdominal pain/severe depression, IBS, diverticulitis/bowel resection, hiatal hernia, DJD, occasional cervical pain, migraines, skull/head injury at age 19 with lengthy hospitalization, nephrolithiasis-passed stone on his own, [place] bilaterally. History of Any Multi-Drug Resistant Organisms: None Reported Past Surgical History: Back Surgery, Bowel Resection, Orthopedic Surgery Additional Past Surgical History / Comment(s): 02/18/20 Robot assisted laparoscopy/extensive lysis of adhesions, CIRCULATION MANAGER shunt, 2020 R elbow tendon surgery, L knee arthroscopy, L hand amp d/t industrial accident, cervical fusion, bowel resection d/t diverticulitis, EGD, colonoscopy, hemorrhoidectomy, Past Anesthesia/Blood Transfusion Reactions: No Reported Reaction Past Psychological History: Anxiety, Depression Additional Psychological History / Comment(s): Pt resides with his spouse. He i s independent. He drives. Pt states his depression/anxiety which had increased over past several months with suicidal thoughts/plans but states this is no longer a problem for him. He states his depression is not as severe as it had been. Smoking Status: Current every day smoker Past Alcohol Use History: None Reported Additional Past Alcohol Use History / Comment(s): Pt started smoking in 1970 and is a ppd smoker. Pt has not drank alcohol in 30 yrs-he used to drink 1/5 a day. Past Drug Use History: Marijuana Additional Drug Use History / Comment(s): occasional use - Past Family History Mother Family Medical History: Cancer Additional Family Medical History / Comment(s): kidney Father Family Medical History: Cancer Additional Family Medical History / Comment(s): pancreatic Medications and Allergies Home Medications Medication Instructions Recorded Confirmed Type Simvastatin [Zocor] 40 mg PO AC-SUPPER 11/24/15 08/18/20 History lisinopriL [Zestril] 20 mg PO BID 11/24/15 08/18/20 History Insulin Aspart [NovoLOG Flexpen] 10 units SQ AC-LUNCH 12/15/18 08/18/20 History Insulin Aspart [NovoLOG Flexpen] 20 units SQ AC-BID@0900,1800 12/15/18 08/18/20 History Insulin Detemir (Levemir) [Levemir] 45 unit SQ DAILY 12/15/18 08/18/20 History Aspirin EC [Ecotrin Low Dose] 81 mg PO DAILY 02/15/20 08/18/20 History atenoloL [Atenolol] 25 mg PO DAILY 02/17/20 08/18/20 History Docusate [Colace] 100 mg PO BID 05/12/20 08/18/20 History Hydrochlorothiazide 25 mg PO DAILY 08/18/20 08/18/20 History [hydroCHLOROthiazide] Nitroglycerin Sl Tabs [Nitrostat] 0.4 mg SL Q5M PRN 08/18/20 08/18/20 History Allergies Allergy/AdvReac Type Severity Reaction Status Date / Time blue dye Allergy Severe Rash/Hives Verified 08/18/20 14:51 codeine Allergy Itching Verified 08/18/20 14:51 naproxen sodium [From Aleve] Allergy Rash/Hives Verified 08/18/20 14:51 ondansetron [From Zofran] Allergy Rash/Hives Verified 08/18/20 14:51 gabapentin AdvReac Abdominal Verified 08/18/20 14:51 Pain naloxegol [From Movantik] AdvReac Nausea & Verified 08/18/20 14:51 Vomiting Physical Exam Vitals: Vital Signs Temp Pulse Pulse Resp BP BP Pulse Ox 08/18/20 20:00 98.1 F 81 17 168/86 96 08/18/20 16:53 75 18 170/99 98 08/18/20 16:05 98 F 81 18 180/91 97 08/18/20 14:56 70 08/18/20 14:48 97.9 F 82 20 180/94 98 Intake and Output 08/18/20 08/18/20 08/19/20 14:59 22:59 06:59 Intake Total 250 111.167 Balance 250 111.167 Intake: IV 50 Intake, IV Titration 10 61.167 Amount Heparin Sod,Pork in 0.45% 10 61.167 NaCl 25,000 unit In 0.45 % NaCl 1 250ml.bag @ 11. 853 UNITS/KG/HR 10 mls/hr IV .Q24H [facility] Rx#: [id number] Oral 240 Other: Voiding Method Toilet Weight 84.368 kg 84.368 kg - Constitutional General appearance: no acute distress - Respiratory Respiratory: bilateral: CTA - Cardiovascular Rhythm: regular Heart sounds: normal: S1, S2 Abnormal Heart Sounds: systolic murmur Results 08/18/20 15:01 08/18/20 15:01 Cardiac Enzymes 08/18/20 08/18/20 08/18/20 Range/Units 15:01 15:01 18:22 AST 18 (17-59) U/L Troponin I 0.058 H* 0.068 H* (0.000-0.034) ng/mL 08/18/20 Range/Units 20:59 AST (17-59) U/L Troponin I 0.054 H* (0.000-0.034) ng/mL Coagulation 08/18/20 08/18/20 Range/Units 15:01 22:32 PT 10.9 (9.0-12.0) sec APTT 24.2 41.0 H (22.0-30.0) sec CBC 08/18/20 Range/Units 15:01 WBC 13.5 H (3.8-10.6) k/uL RBC 5.42 (4.30-5.90) m/uL Hgb 16.9 (13.0-17.5) gm/dL Hct 51.7 (39.0-53.0) % Plt Count 269 (150-450) k/uL Comprehensive Metabolic Panel 08/18/20 Range/Units 15:01 Sodium 137 (137-145) mmol/L Potassium 4.5 (3.5-5.1) mmol/L Chloride 105 (98-107) mmol/L Carbon Dioxide 26 (22-30) mmol/L BUN 24 H (9-20) mg/dL Creatinine 1.00 (0.66-1.25) mg/dL Glucose 221 H (74-99) mg/dL Calcium 9.4 (8.4-10.2) mg/dL AST 18 (17-59) U/L ALT 21 (4-49) U/L Alkaline Phosphatase 94 (38-126) U/L Total Protein 6.7 (6.3-8.2) g/dL Albumin 4.2 (3.5-5.0) g/dL Current Medications Generic Name Dose Route Start Last Admin Trade Name Freq PRN Reason Stop Dose Admin Alprazolam 0.25 mg 08/18/20 19:24 Alprazolam 0.25 Mg Tab PO TID PRN Anxiety Aspirin 325 mg 08/19/20 09:00 Aspirin 325 Mg Tab PO DAILY [facility] Atorvastatin Calcium 20 mg 08/19/20 17:30 Atorvastatin 20 Mg Tab PO AC-SUPPER [facility] Docusate Sodium 100 mg 08/18/20 21:00 08/18/20 20:34 Docusate 100 Mg Cap PO 100 mg BID OPAL Administration Hydrochlorothiazide 25 mg 08/19/20 09:00 Hydrochlorothiazide 25 Mg Tab PO DAILY [facility] Heparin Sodium/Sodium Chloride 250 mls @ 10 mls/hr 08/18/20 16:30 08/18/20 23:15 25,000 unit/ Sodium Chloride IV 14.22 units/kg/hr .Q24H [facility] 12 mls/hr Titration Protocol 11.853 UNITS/KG/HR Sodium Chloride 1,000 mls @ 75 mls/hr 08/19/20 01:15 Saline 0.9% IV 08/19/20 06:16 .[id number] [facility] Insulin Aspart 0 unit 08/18/20 17:00 08/18/20 20:39 Insulin Aspart (Novolog) 100 Unit/Ml Vial SQ 2 unit TID [facility] Administration Protocol Insulin Aspart 10 unit 08/19/20 12:30 Insulin Aspart (Novolog) 100 Unit/Ml Vial SQ AC-LUNCH [facility] Insulin Aspart 20 unit 08/19/20 09:00 Insulin Aspart (Novolog) 100 Unit/Ml Vial SQ AC-BID@0900,1800 [facility] Insulin Detemir 45 unit 08/19/20 07:00 Insulin Detemir (Levemir) 100 Unit/Ml Syr SQ DAILY@0700 [facility] Isosorbide Mononitrate 30 mg 08/19/20 09:00 Isosorbide Mononitrate Er 30 Mg Tab.Er.24h PO DAILY [facility] Lisinopril 20 mg 08/18/20 21:00 08/18/20 20:32 Lisinopril 20 Mg Tab PO 20 mg BID [facility] Administration Metoprolol Tartrate 75 mg 08/19/20 09:00 Metoprolol Tartrate 50 Mg Tab PO BID [facility] Miscellaneous Information 1 each 08/19/20 01:08 Rx Info: Iv Contrast Was Given 1 Each Misc MISCELLANE 08/21/20 01:08 DAILY PRN Per Protocol Nitroglycerin 0.4 mg 08/18/20 16:20 08/18/20 23:10 Nitroglycerin Sl Tabs 0.4 Mg Tab SUBLINGUAL 0.4 mg Q5M PRN Administration Chest Pain Pantoprazole Sodium 40 mg 08/19/20 07:30 Pantoprazole 40 Mg Tablet PO AC-BRKFST [facility] Temazepam 15 mg 08/18/20 19:24 Temazepam 15 Mg Cap PO HS PRN Insomnia Intake and Output 08/18/20 08/18/20 08/19/20 14:59 22:59 06:59 Intake Total 250 111.167 Balance 250 111.167 Intake: IV 50 Intake, IV Titration 10 61.167 Amount Heparin Sod,Pork in 0.45% 10 61.167 NaCl 25,000 unit In 0.45 % NaCl 1 250ml.bag @ 11. 853 UNITS/KG/HR 10 mls/hr IV .Q24H [facility] Rx#: [id number] Oral 240 Other: Voiding Method Toilet Weight 84.368 kg 84.368 kg Patient Weight 08/19/20 06:59 Weight 84.368 kg 08/18/20 15:01 08/18/20 15:01 Assessment and Plan Assessment: Assessment #1 hypertension emergency #2 mildly abnormal cardiac enzymes probably secondary to hypertension emergency #3 chest discomfort likely secondary to uncontrolled blood pressure #4 intermediate to severe to assess coronary artery disease #5 history of ventricular to peritoneal shunt #6 multiple comorbid conditions including diabetes and hypertension and dyslipidemia #6 history of smoking Plan #1 I advised maximize medical treatment #2 added Plavix to the current medical regimen #3 increase the dose of metoprolol #4 add oral nitrate #5 continue lisinopril #6 obtain an echocardiogram was Doppler #7 high intensity statin #8 follow-up with the patient We will consider doing a PCI of the RCA if the patient continues to have chest discomfort with controlled blood pressure in spite of maximize medical treatment. Thank you for allowing us but spitting his care and please do not hesitate to call if any question or concern
--- NOTE | 2020-08-19 01:40 | CC ---
CARDIAC CATHETERIZATION REPORT DATE OF SERVICE: August 19, 2020. PERFORMING PHYSICIAN: Sunil Gonzalez MD. PROCEDURE PERFORMED: Selective right and left coronary angiogram. INDICATION: Ongoing chest discomfort in this 64-year-old gentleman with diabetes as well as history of smoking, who was admitted to the hospital and was found to have abnormal cardiac enzymes and EKG changes as well. APPROACH: Right common femoral artery. COMPLICATION: None. LEVEL OF SEDATION: Moderate with sedation length of 18 minutes. PROCEDURE DESCRIPTION: After obtaining informed consent, the patient was brought to cardiac laborer bituminous paving. The right common femoral artery was cannulated using micropuncture technique, the micropuncture wire passed easily. Then I placed a 6-Filipino sheath at the right common femoral artery. Selective right and left coronary angiogram performed with JR4 and JL4 catheters. The procedure was completed without any complication. SELECTIVE CORONARY ANGIOGRAM: 1. The RCA is a large caliber vessel and it is a dominant vessel. The proximal RCA appeared to have mild disease only. The mid RCA has intermediate to severe lesion appeared to be in the range of 60% to 70%. The RCA distally has another lesion appeared to be in the range of 60% to 70%. After that, the RCA bifurcates into PDA and PLV branches both appeared to be angiographically normal. 2. The left main is angiographically normal. It bifurcates into LCX and LAD. 3. The LCX is a large caliber vessel, it is a nondominant vessel. The proximal left circumflex is normal. The mid circumflex has a lesion appeared to be in the range of 60% as well. 4. The LAD is a large caliber vessel. The LAD is angiographically normal. It gives rise into the first and second diagonal branch with the first diagonal branch has a critical lesion appeared to be in the range of 70%, but the diagonal is only about 2 mm in diameter. The second diagonal branch appeared to be angiographically normal. CONCLUSION: 1. Intermediate to severe disease involving the mid and distal RCA. 2. Intermediate to severe disease involving the mid left circumflex. 3. Severe disease involving the ostial of the small diagonal branch which was the first diagonal branch. POSTPROCEDURE MANAGEMENT: 1. Given the above anatomy, I recommended maximize medical treatment including blood pressure control as well as diabetes control. 2. Smoking cessation also. 3. Aggressive cholesterol control. 4. Follow up with the patient. MMODL / IJN: [id number] /
[2020-08-19] MEDS: ALPRAZolam 0.25 MG TAB PO PRN ×2 (03:31→10:53)
[2020-08-19] MEDS ORDERED: hydrALAZINE HCL 20 MG/ML 1 ML VIAL IVP PRN (04:37)
[2020-08-19 06:55] LABS: Glucose,Whole Blood 205 mg/dL (75-99)
[2020-08-19] MEDS: INSULIN DETEMIR (LEVEMIR) 100 UNIT/ML SYR SQ SCH (06:58)
[2020-08-19] MEDS ORDERED: PANTOPRAZOLE 40 MG TABLET PO SCH (07:30)
[2020-08-19 07:58] LABS: Basophils # (A) 0.2 k/uL (0-0.2); Basophils % (A) 1 %; Eosinophils # (A) 0.2 k/uL (0-0.7); Eosinophils % (A) 1 %; HCT 52.1 % (39.0-53.0); HGB 17.4 gm/dL (13.0-17.5); Lymphocytes # (A) 1.8 k/uL (1.0-4.8); Lymphocytes % (A) 12 %; MCH 32.2 pg (25.0-35.0); MCHC 33.4 g/dL (31.0-37.0); MCV 96.4 fL (80.0-100.0); Mean Platelet Volume 7.2; Monocytes % (A) 7 %; Neutrophils # (A) 11.3 k/uL (1.3-7.7); Neutrophils % (A) 78 %; Platelet Count 253 k/uL (150-450); RDW 13.4 % (11.5-15.5); WBC 14.5 k/uL (3.8-10.6)
[2020-08-19 08:15] LABS: African American GFR (CKD) >90 (>60 ml/min/1.73 sqM); Anion Gap 9 mmol/L; Blood Urea Nitrogen 19 mg/dL (9-20); Calcium 9.4 mg/dL (8.4-10.2); Carbon Dioxide 24 mmol/L (22-30); Chloride 102 mmol/L (98-107); Cholesterol 161 mg/dL (<200); Glucose 234 mg/dL (74-99); HDL Cholesterol 57 mg/dL (40-60); LDL Cholesterol,Calculated 74 mg/dL (0-99); Non-African American GFR(CKD) 87 (>60 ml/min/1.73 sqM); Potassium 4.5 mmol/L (3.5-5.1); Sodium 135 mmol/L (137-145); Triglycerides 151 mg/dL (<150)
--- NOTE | 2020-08-19 08:22 | P.PN ---
Subjective Progress Note Date: 08/19/20 Principal diagnosis: Acute coronary syndrome This is a 64-year-old gentleman with diabetes and hypertension and dyslipidemia who was admitted to the hospital with chest discomfort and ruled in for acute coronary syndrome. Because he continues to have chest discomfort heart cath eterization was advised. The heart catheterization revealed intermediate to severe to assess coronary artery disease and maximize medical treatment was advised. The patient was seen this morning. His chest pain free. The right groin is soft and nontender and without any bruises. The pressure continues to be elevated. I'm going to increase the dose of oral nitrate and continue monitor the pressure for additional 24 hours. An echocardiogram was ordered and will follow-up with . Also the patient was started on Plavix. Objective - Vital Signs Vital signs: Vital Signs Temp 97.8 F 08/19/20 04:17 Pulse 82 08/19/20 06:33 Resp 18 08/19/20 04:17 BP 196/94 08/19/20 06:33 Pulse Ox 96 08/19/20 04:17 Intake & Output 08/18/20 08/19/20 08/19/20 18:59 06:59 18:59 Intake Total 10 351.167 480 Output Total 700 Balance 10 -348.833 480 Weight 84.368 kg 81 kg Intake: IV 50 Intake, IV Titration 10 61.167 Amount Heparin Sod,Pork in 0.45% 10 61.167 NaCl 25,000 unit In 0.45 % NaCl 1 250ml.bag @ 11. 853 UNITS/KG/HR 10 mls/hr IV .Q24H [facility] Rx#: [id number] Oral 240 480 Output: Urine 700 Other: Voiding Method Toilet - Constitutional General appearance: Present: no acute distress - Respiratory Respiratory: bilateral: CTA - Cardiovascular Rhythm: regular Heart sounds: normal: S1, S2 - Labs CBC & Chem 7: 08/19/20 07:25 08/19/20 07:25 Labs: Abnormal Lab Results - Last 24 Hours (Table) 08/18/20 08/18/20 08/18/20 Range/Units 15:01 15:01 15:01 WBC 13.5 H (3.8-10.6) k/uL Neutrophils # 10.2 H (1.3-7.7) k/uL APTT (22.0-30.0) sec Sodium (137-145) mmol/L BUN 24 H (9-20) mg/dL Glucose 221 H (74-99) mg/dL POC Glucose (mg/dL) (75-99) mg/dL Troponin I 0.058 H* (0.000-0.034) ng/mL Triglycerides (<150) mg/dL Lipase 527 H (23-300) U/L 08/18/20 08/18/20 08/18/20 Range/Units 17:31 18:22 20:06 WBC (3.8-10.6) k/uL Neutrophils # (1.3-7.7) k/uL APTT (22.0-30.0) sec Sodium (137-145) mmol/L BUN (9-20) mg/dL Glucose (74-99) mg/dL POC Glucose (mg/dL) 143 H 172 H (75-99) mg/dL Troponin I 0.068 H* (0.000-0.034) ng/mL Triglycerides (<150) mg/dL Lipase (23-300) U/L 08/18/20 08/18/20 08/18/20 Range/Units 20:59 22:32 22:56 WBC (3.8-10.6) k/uL Neutrophils # (1.3-7.7) k/uL APTT 41.0 H (22.0-30.0) sec Sodium (137-145) mmol/L BUN (9-20) mg/dL Glucose (74-99) mg/dL POC Glucose (mg/dL) 144 H (75-99) mg/dL Troponin I 0.054 H* (0.000-0.034) ng/mL Triglycerides (<150) mg/dL Lipase (23-300) U/L 08/19/20 08/19/20 08/19/20 Range/Units 06:53 07:25 07:25 WBC 14.5 H (3.8-10.6) k/uL Neutrophils # 11.3 H (1.3-7.7) k/uL APTT (22.0-30.0) sec Sodium 135 L (137-145) mmol/L BUN (9-20) mg/dL Glucose 234 H (74-99) mg/dL POC Glucose (mg/dL) 205 H (75-99) mg/dL Troponin I (0.000-0.034) ng/mL Triglycerides 151 H (<150) mg/dL Lipase (23-300) U/L Assessment and Plan Assessment: Assessment #1 hypertension emergency #2 mildly abnormal cardiac enzymes probably secondary to hypertension emergency #3 chest discomfort likely secondary to uncontrolled blood pressure #4 intermediate to severe to assess coronary artery disease #5 history of ventricular to peritoneal shunt #6 multiple comorbid conditions including diabetes and hypertension and dyslip idemia #6 history of smoking Plan #1 continue the current medical regimen #2 increase the dose of oral nitrate #3 follow-up on the echocardiogram #4 monitor the patient for additional 24 hours
[2020-08-19] MEDS ORDERED: NON FORMULARY DRUG (Aspirin Ec 81 MG Tablet.Dr) PO SCH (09:00)
[2020-08-19] MEDS ORDERED: ISOSORBIDE MONONITRATE ER 30 MG TAB.ER.24H PO SCH (09:00)
[2020-08-19] MEDS ORDERED: INSULIN ASPART (NovoLOG) 100 UNIT/ML VIAL SQ SCH ×2 (09:00→17:30)
[2020-08-19] MEDS: DOCUSATE 100 MG CAP PO SCH ×2 (09:18→19:46)
[2020-08-19] MEDS: ASPIRIN 325 MG TAB PO SCH (09:18)
[2020-08-19] MEDS: lisinopriL 20 MG TAB PO SCH ×2 (09:18→19:47)
[2020-08-19] MEDS: ISOSORBIDE MONONITRATE ER 60 MG TAB.ER.24H PO SCH (09:19)
[2020-08-19] MEDS: METOPROLOL TARTRATE 50 MG TAB PO SCH ×2 (09:19→19:46)
[2020-08-19] MEDS: hydroCHLOROthiazide 25 MG TAB PO SCH (09:19)
[2020-08-19] MEDS: CLOPIDOGREL 75 MG TAB PO SCH (09:19)
[2020-08-19] MEDS: INSULIN ASPART (NovoLOG) 100 UNIT/ML VIAL SQ SCH ×4 (09:21→20:56)
[2020-08-19 09:37] LABS: Glucose,Whole Blood 429 mg/dL (75-99)
[2020-08-19 10:51] LABS: Glucose,Whole Blood 221 mg/dL (75-99)
[2020-08-19] MEDS: ACETAMINOPHEN TAB 325 MG TAB PO PRN ×2 (10:53→18:29)
[2020-08-19 12:10] LABS: Glucose,Whole Blood 164 mg/dL (75-99)
[2020-08-19] MEDS ORDERED: MECLIZINE 12.5 MG TAB PO PRN (12:20)
[2020-08-19 14:32] LABS: Glucose,Whole Blood 187 mg/dL (75-99)
[2020-08-19] MEDS: METOCLOPRAMIDE 5 MG/ML 2 ML VIAL IVP PRN ×2 (14:52→19:44)
[2020-08-19 16:34] LABS: Glucose,Whole Blood 147 mg/dL (75-99)
[2020-08-19 16:43] LABS: Amylase 81 U/L (30-110); Lipase 104 U/L (23-300)
--- NOTE | 2020-08-19 16:46 | XR ---
EXAMINATION TYPE: XR chest 1V portable DATE OF EXAM: 08/19/2020 COMPARISON: 08/18/2020 INDICATION: Right pneumonia, cough TECHNIQUE: Single frontal view of the chest is obtained. FINDINGS: The heart size is upper limits for normal.. The pulmonary vasculature is normal. No suspicious infiltrates are evident. IMPRESSION: 1. No acute pulmonary process.
[2020-08-19] MEDS: PANTOPRAZOLE 40 MG TABLET PO SCH (17:22)
[2020-08-19] MEDS ORDERED: ATORVASTATIN 20 MG TAB PO SCH ×2 (17:30)
--- NOTE | 2020-08-19 18:12 | PN ---
PROGRESS NOTE I am covering for Dr. Colby. DATE OF SERVICE: 08/19/2020 This 64-year-old gentleman admitted to the hospital with chest pain, had features of acute agt-ED-yuqdleo-elevation myocardial infarction. Dr. Gonzalez performed cardiac cath which showed diffuse three-vessel disease with intermediate severe disease involving the mid and distal RCA and as well as left circumflex and severe disease involving the ostial of the small diagonal branch also. Given the anatomy, maximize medical treatment and as well as blood pressure control was recommended by Dr. Gonzalez and aggressive cholesterol control was also noted. The patient being closely monitored. Patient complains of nausea and abdominal discomfort at this time and dizziness. Past medical history reviewed. REVIEW OF SYSTEMS: CARDIOVASCULAR: As mentioned earlier. RESPIRATORY: As mentioned. GI: As mentioned earlier. : No dysuria. NERVOUS SYSTEM: As mentioned earlier. CURRENT MEDICATIONS: Reviewed and include: Tylenol, Xanax, aspirin, Lipitor, Plavix. Colace, Apresoline, NovoLog and Zestril. Reglan. Protonix. PHYSICAL EXAM: Patient is alert and oriented times three. Pulse 86, blood pressure 130/70, respiration 17, temperature 98.6, pulse ox 98% on room air. HEENT: Conjunctivae normal. NECK: No JVD. CARDIOVASCULAR: S1, S2 muffled. RESPIRATORY: Breath sounds diminished in the bases. A few scattered rhonchi and crackles. ABDOMEN: Soft, nontender. LEGS are no edema. No swelling. NERVOUS SYSTEM: No focal deficits. LAB STUDIES: WBC 14.5, sodium 135. Glucose noted. ASSESSMENT: 1. Chest pain with possible acute xzo-HN-hemmbzc-elevation myocardial infarction status post cardiac catheterization and as well as two-vessel disease. 2. Troponin 0.058. 3. 4. Elevated lipase. 5. Increased WBC. 6. History of chest pain/angina. 7. History of cerebrovascular accident, transient ischemic attack. 8. Possible acute gastritis. 9. Diabetes mellitus type 2. 10.Gastroesophageal reflux disease. 11.Hard of hearing. 12.Hypertension. 13.Hyperlipidemia. 14.History of bilateral peripheral neuropathy. 15.History of cerebrovascular accident. 16.History of hydrocephalus and CUSTOMER PRICING MANAGER shunt. 17.History of depression. 18.History of irritable bowel syndrome. 19.History of degenerative joint disease. 20.History of migraines. 21.History of nephrolithiasis. 22.History of back surgery. 23.History of bowel resection. 24.History of anxiety, depression. 25.History of nicotine dependence, continued ongoing. RECOMMENDATIONS AND DISCUSSION: I recommend to continue current medications, management. Symptomatic treatment. Continue with antiplatelet agents. Continue with blood pressure regulation as recommended by Cardiology. Triglycerides 151, cholesterol is only 161. Continue to monitor. Lipase is 527. I will repeat lipase also. I would also recommend Protonix also. p.r.n. Antivert. UA with micro is also recommended. Prognosis guarded because of multiple complex medical issues. A 2D echo with Doppler also has been ordered. Further recommendations to follow. A copy of dictation being forwarded to Dr. Colby, who is the primary physician. MMODL / IJN: [id number] /
[2020-08-19 20:04] LABS: Glucose,Whole Blood 175 mg/dL (75-99)
[2020-08-20] MEDS: HYDROcodone/APAP 5-325MG 1 EACH TAB PO PRN ×2 (01:15→11:20)
[2020-08-20] MEDS: ACETAMINOPHEN TAB 325 MG TAB PO PRN (06:08)
[2020-08-20] MEDS: PANTOPRAZOLE 40 MG TABLET PO SCH (06:09)
[2020-08-20 07:04] LABS: Glucose,Whole Blood 166 mg/dL (75-99)
[2020-08-20] MEDS: INSULIN DETEMIR (LEVEMIR) 100 UNIT/ML SYR SQ SCH (07:04)
[2020-08-20 07:06] LABS: Basophils # (A) 0.2 k/uL (0-0.2); Basophils % (A) 1 %; Eosinophils # (A) 0.3 k/uL (0-0.7); Eosinophils % (A) 2 %; HCT 51.5 % (39.0-53.0); HGB 17.2 gm/dL (13.0-17.5); Lymphocytes # (A) 1.8 k/uL (1.0-4.8); Lymphocytes % (A) 13 %; MCH 31.9 pg (25.0-35.0); MCHC 33.4 g/dL (31.0-37.0); MCV 95.5 fL (80.0-100.0); Monocytes % (A) 7 %; Neutrophils # (A) 10.7 k/uL (1.3-7.7); Neutrophils % (A) 75 %; Platelet Count 273 k/uL (150-450); RBC 5.39 m/uL (4.30-5.90); RDW 13.4 % (11.5-15.5); WBC 14.2 k/uL (3.8-10.6)
[2020-08-20 07:16] LABS: African American GFR (CKD) >90 (>60 ml/min/1.73 sqM); Anion Gap 8 mmol/L; Blood Urea Nitrogen 24 mg/dL (9-20); Calcium 9.1 mg/dL (8.4-10.2); Carbon Dioxide 22 mmol/L (22-30); Chloride 105 mmol/L (98-107); Glucose 173 mg/dL (74-99); Non-African American GFR(CKD) 81 (>60 ml/min/1.73 sqM); Potassium 4.2 mmol/L (3.5-5.1); Sodium 135 mmol/L (137-145)
[2020-08-20] MEDS ORDERED: INSULIN ASPART (NovoLOG) 100 UNIT/ML VIAL SQ SCH (07:30)
[2020-08-20 08:49] VITALS: TEMP 97.6
[2020-08-20] MEDS: DOCUSATE 100 MG CAP PO SCH (08:49)
[2020-08-20] MEDS: ASPIRIN 325 MG TAB PO SCH (08:49)
[2020-08-20] MEDS: hydroCHLOROthiazide 25 MG TAB PO SCH (08:49)
[2020-08-20] MEDS: lisinopriL 20 MG TAB PO SCH (08:49)
[2020-08-20] MEDS: METOPROLOL TARTRATE 50 MG TAB PO SCH (08:49)
[2020-08-20] MEDS: CLOPIDOGREL 75 MG TAB PO SCH (08:50)
[2020-08-20] MEDS: INSULIN ASPART (NovoLOG) 100 UNIT/ML VIAL SQ SCH ×2 (09:11→12:36)
[2020-08-20] MEDS: ISOSORBIDE MONONITRATE ER 60 MG TAB.ER.24H PO SCH (09:11)
--- NOTE | 2020-08-20 09:45 | P.PN ---
Subjective Progress Note Date: 08/20/20 Principal diagnosis: Acute coronary syndrome This is a 64-year-old gentleman with diabetes and hypertension and dyslipidemia who was admitted to the hospital with chest discomfort and ruled in for acute coronary syndrome. Because he continues to have chest discomfort heart cath eterization was advised. The heart catheterization revealed intermediate to severe to assess coronary artery disease and maximize medical treatment was advised. The patient was seen today August 202020. He is asymptomatic from a cardiovascular standpoint of view. He is hemodynamically stable. The echo still pending. The pressure has improved. If the echo showed normal LV function the patient possibly can be discharged home from a cardiovascular standpoint of view. He did not tolerate oral nitrates. Objective - Vital Signs Vital signs: Vital Signs Temp 97.6 F 08/20/20 08:00 Pulse 95 08/20/20 08:00 Resp 16 08/20/20 08:00 BP 142/89 08/20/20 08:00 Pulse Ox 97 08/20/20 08:00 Intake & Output 08/19/20 08/20/20 08/20/20 18:59 06:59 18:59 Intake Total 960 240 Output Total 600 0 Balance 360 0 240 Intake: Oral 960 240 Output: Urine 600 0 Stool 0 Other: Voiding Method Toilet Toilet # Voids 0 - Constitutional General appearance: Present: no acute distress - Respiratory Respiratory: bilateral: CTA - Cardiovascular Rhythm: regular Heart sounds: normal: S1, S2 - Labs CBC & Chem 7: 08/20/20 06:28 08/20/20 06:28 Labs: Abnormal Lab Results - Last 24 Hours (Table) 08/19/20 08/19/20 08/19/20 Range/Units 10:48 11:59 14:30 WBC (3.8-10.6) k/uL Neutrophils # (1.3-7.7) k/uL Sodium (137-145) mmol/L BUN (9-20) mg/dL Glucose (74-99) mg/dL POC Glucose (mg/dL) 221 H 164 H 187 H (75-99) mg/dL 08/19/20 08/19/20 08/20/20 Range/Units 16:33 20:03 06:28 WBC 14.2 H (3.8-10.6) k/uL Neutrophils # 10.7 H (1.3-7.7) k/uL Sodium (137-145) mmol/L BUN (9-20) mg/dL Glucose (74-99) mg/dL POC Glucose (mg/dL) 147 H 175 H (75-99) mg/dL 08/20/20 08/20/20 Range/Units 06:28 07:03 WBC (3.8-10.6) k/uL Neutrophils # (1.3-7.7) k/uL Sodium 135 L (137-145) mmol/L BUN 24 H (9-20) mg/dL Glucose 173 H (74-99) mg/dL POC Glucose (mg/dL) 166 H (75-99) mg/dL Assessment and Plan Assessment: Assessment #1 hypertension emergency #2 mildly abnormal cardiac enzymes probably secondary to hypertension emergency #3 chest discomfort likely secondary to uncontrolled blood pressure #4 intermediate to severe to assess coronary artery disease #5 history of ventricular to peritoneal shunt #6 multiple comorbid conditions including diabetes and hypertension and dysli pidemia #6 history of smoking Plan #1 continue the current medical regimen #2 follow-up on the echo #3 the patient can be discharged home if the echo came in to be unremarkable
[2020-08-20 11:20] VITALS: BP 183/94; PULSE 90; RESP 18
[2020-08-20 12:11] LABS: Glucose,Whole Blood 152 mg/dL (75-99)
--- NOTE | 2020-08-20 18:20 | DS ---
DISCHARGE SUMMARY DATE OF SERVICE: 08/20/2020. I am covering for Dr. Colby. FINAL DIAGNOSES: 1. Chest pain with possible acute ucv-RK-krkdbrt-elevation myocardial infarction status post cardiac catheterization as well as 2 vessel disease. 2. Troponin 0.058. 3. On medical treatment. 4. Elevated lipase, improved. 5. Increased WBC. 6. History of chest pain/angina. 7. History of cerebrovascular accident, transient ischemic attack. 8. Possible acute gastritis. 9. Diabetes mellitus type 2. 10.Gastroesophageal reflux disease. 11.Hard of hearing. 12.Hypertension. 13.Hyperlipidemia. 14.History of bilateral peripheral neuropathy. 15.History of cerebrovascular accident. 16.Hydrocephalus and DIRECTOR OF USER EXPERIENCE shunt. 17.History of depression. 18.Irritable bowel syndrome. 19.History of degenerative joint disease. 20.History of migraine. 21.History of nephrolithiasis. 22.History of back surgery. 23.History of bowel resection. 24.History of anxiety, depression. 25.History of nicotine dependence, continued ongoing. DISCHARGE DISPOSITION: The patient will be discharged in stable condition with guarded prognosis. Total time taken 35 minutes. Cardiology cleared the patient for discharge. HISTORY OF PRESENT ILLNESS: This 64-year-old gentleman with a past medical history of multiple medical problems being followed by Dr. Dru Colby in the outpatient setting was admitted with chest pain. Troponins elevated. Patient had features of acute non ST-segment elevation myocardial infarction. The patient was treated medically with antiplatelet agents. Cardiology performed a cardiac cath which showed 2 vessel coronary artery disease. Stenting was not done and the patient recommended medical treatment. Recommended possible stenting if the patient is symptomatic or in case of disease progression. The white count is 14.2. COVID-19 test has been requested. The final reports to be evaluated by Dr. Colby in the outpatient setting. Otherwise, blood sugars are noted. Patient improved significantly. On exam, vitals are stable. Cardiovascular S1, S2. Abdomen soft. Nervous system: No focal deficits. DISCHARGE ADVICE AND MEDICATIONS: 1. Diet cardiac. 2. Activity limited until followup. 3. Follow up with Dr. Guillen on August 26. 4. Follow up with Dr. Colby in 1-2 days. DISCHARGE MEDICATIONS: 1. Colace 100 mg p.o. b.i.d. 2. Aspirin 81 mg p.o. daily. 3. Hydrochlorothiazide 25 mg p.o. daily. 4. Levemir 45 units subcu daily. 5. Nitrostat 0.4 mg sublingual p.r.n. 6. NovoLog 20 units a.c. b.i.d. and NovoLog FlexPen 10 units a.c. lunch. 7. Zestril 20 mg p.o. b.i.d. 8. Zocor 40 mg Q daily. 9. Antivert 12.5 mg t.i.d. p.r.n. 10.Lopressor 100 mg p.o. b.i.d. 11.Plavix 75 mg p.o. daily. 12.Protonix 40 mg p.o. b.i.d. patient. Once again the patient discharged in stable condition. Guarded prognosis. MMODL / IJN: [id number] /
[2020-08-20] MEDS ORDERED: METOPROLOL TARTRATE 50 MG TAB PO SCH (21:00)
--- NOTE | 2020-08-21 09:07 | ECHOF ---
Referral Reason:ACS MEASUREMENTS -------- HEIGHT: 175.3 cm WEIGHT: 80.7 kg BP: 136/75 IVSd: 1.3 cm (0.6 - 1.1) LVIDd: 4.2 cm (3.9 - 5.3) LVPWd: 1.7 cm (0.6 - 1.1) IVSs: 1.9 cm LVIDs: 3.0 cm LVPWs: 1.4 cm Ao Diam: 2.6 cm (2.0 - 3.7) AV Cusp: 1.7 cm (1.5 - 2.6) EPSS: 0.3 cm MV E Collins: 0.40 m/s MV DecT: 298 ms MV A Collins: 0.76 m/s MV E/A Ratio: 0.53 RAP: 5.00 mmHg RVSP: 11.66 mmHg MV EF SLOPE: 63.83 mm/s (70 - 150) MV EXCURSION: 16.31 mm (> 18.000) FINDINGS -------- Sinus rhythm. This was a technically adequate study. The left ventricular size is normal. There is moderate concentric left ventricular hypertrophy. O verall left ventricular systolic function is normal with, an EF between 55 - 60 %. The right ventricle is normal in size. Normal LA size by volume 22+/-6 ml/m2. The right atrial size is normal. There is mild aortic valve sclerosis. There is no evidence of aortic regurgitation. Mild mitral annular calcification present. Mild mitral regurgitation is present. Mild tricuspid regurgitation present. Right ventricular systolic pressure is normal at < 35 mmHg. There is no pulmonic regurgitation present. The aortic root size is normal. There is no pericardial effusion. CONCLUSIONS -------- 1. The left ventricular size is normal. 2. There is moderate concentric left ventricular hypertrophy. 3. Overall left ventricular systolic function is normal with, an EF between 55 - 60 %. 4. The right ventricle is normal in size. 5. Normal LA size by volume 22+/-6 ml/m2. 6. The right atrial size is normal. 7. There is mild aortic valve sclerosis. 8. Mild mitral annular calcification present. 9. Mild mitral regurgitation is present. 10. Mild tricuspid regurgitation present. 11. The aortic root size is normal. 12. There is no pericardial effusion. FOLDING MACHINE SETTER: Kena Mckeon RDCS
== END 2020-08-20 13:37 | disposition home or self-care (01) | DRG 280 ==
LOC: EC 14:34 → 3SCARD 16:28 → OBSVTOIN 08-20 08:14
PROVIDERS: ADMIT Hospitalist; ATTEND Hospitalist
PROC: 4A023N7 Measurement of Cardiac Sampling and Pressure, Left Heart, Percutaneous Approach (ICD-10-PCS; principal; 2020-08-19 00:10)
PROC: B2111ZZ Fluoroscopy of Multiple Coronary Arteries using Low Osmolar Contrast (ICD-10-PCS; principal; 2020-08-19 00:10)
DX: I21.4 Non-ST elevation (NSTEMI) myocardial infarction (principal); K85.90 Acute pancreatitis without necrosis or infection, unspecified; G91.9 Hydrocephalus, unspecified; I16.1 Hypertensive emergency; E11.40 Type 2 diabetes mellitus with diabetic neuropathy, unspecified; Z79.4 Long term (current) use of insulin; E78.5 Hyperlipidemia, unspecified; F17.210 Nicotine dependence, cigarettes, uncomplicated; F32.9 Major depressive disorder, single episode, unspecified; F41.9 Anxiety disorder, unspecified; H91.90 Unspecified hearing loss, unspecified ear; I10 Essential (primary) hypertension; I25.10 Atherosclerotic heart disease of native coronary artery without angina pectoris; Z86.73 Personal history of transient ischemic attack (TIA), and cerebral infarction without residual deficits; K21.9 Gastro-esophageal reflux disease without esophagitis; K58.9 Irritable bowel syndrome, unspecified; N28.9 Disorder of kidney and ureter, unspecified; Z79.82 Long term (current) use of aspirin; Z87.442 Personal history of urinary calculi; Z20.822 Contact with and (suspected) exposure to COVID-19; Z90.49 Acquired absence of other specified parts of digestive tract; Z98.2 Presence of cerebrospinal fluid drainage device; Z98.1 Arthrodesis status; Z80.51 Family history of malignant neoplasm of kidney; Z88.5 Allergy status to narcotic agent; Z88.8 Allergy status to other drugs, medicaments and biological substances; G43.909 Migraine, unspecified, not intractable, without status migrainosus; K29.00 Acute gastritis without bleeding
CPT/HCPCS: 36415; 71045; 80048; 80053; 80061; 82150; 83690; 83735; 83880; 84484; 85025; 85610; 85730; 93005; 93306; 93454; 99285

== ENCOUNTER 2020-12-03 20:49 | Emergency (ER) | payer BC, MEDICARE ==
[2020-12-03 21:02] VITALS: BP 137/73; PULSE 76; RESP 18; TEMP 98.1
--- NOTE | 2020-12-03 21:27 | ED ---
General Adult HPI - General Source: patient Mode of arrival: ambulatory Limitations: no limitations <Yudi Guardado - Last Filed: 12/03/20 22:11> <Jodi Magallon - Last Filed: 12/06/20 02:11> - General Chief complaint: ENT Stated complaint: FB L Ear Time Seen by Provider: 12/03/20 21:18 - History of Present Illness Initial comments: 65-year-old male patient presents to the emergency department today for evaluation of foreign body to the left ear. Patient states that the rubber portion of his hearing aid came off in his ear is unable to get it out. Denies any pain to the area. Denies any drainage. Denies any other concerns. (Yudi Guardado) - Related Data Home Medications Medication Instructions Recorded Confirmed Simvastatin [Zocor] 40 mg PO AC-SUPPER 11/24/15 08/28/20 lisinopriL [Zestril] 20 mg PO BID 11/24/15 08/28/20 Insulin Aspart [NovoLOG Flexpen] 10 units SQ AC-LUNCH 12/15/18 08/28/20 Insulin Aspart [NovoLOG Flexpen] 20 units SQ AC-BID@0900,1800 12/15/18 08/28/20 Insulin Detemir (Levemir) [Levemir] 45 unit SQ DAILY 12/15/18 08/28/20 Aspirin EC [Ecotrin Low Dose] 81 mg PO DAILY 02/15/20 08/28/20 Hydrochlorothiazide 25 mg PO DAILY 08/18/20 08/28/20 [hydroCHLOROthiazide] Nitroglycerin Sl Tabs [Nitrostat] 0.4 mg SL Q5M PRN 08/18/20 08/28/20 ALPRAZolam [Xanax] 0.5 mg PO BID PRN 08/28/20 08/28/20 Albuterol Sulfate [Albuterol 2 puff PO RT-Q4H PRN 08/28/20 08/28/20 Sulfate Hfa] HYDROcodone/APAP 5-325MG [[place] 1 tab PO TID PRN 08/28/20 08/28/20 5-325] Tiotropium 2.5 Mcg/Puff [Spiriva 2 puff INHALATION RT-DAILY 08/28/20 08/28/20 Respimat 2.5 Mcg] Previous Rx's Medication Instructions Recorded Clopidogrel [Plavix] 75 mg PO DAILY #30 tab 08/20/20 Meclizine [Antivert] 12.5 mg PO TID PRN #20 tab 08/20/20 Metoprolol Tartrate [Lopressor] 100 mg PO BID #60 tab 08/20/20 Pantoprazole [Protonix] 40 mg PO AC-BID #60 tablet. 08/20/20 Atorvastatin [Lipitor] 80 mg PO DAILY #30 tab 08/30/20 Nitroglycerin Sl Tabs [Nitrostat] 0.4 mg SUBLINGUAL Q5M PRN #10 tab 08/30/20 amLODIPine [Norvasc] 5 mg PO DAILY #30 tab 08/31/20 hydrALAZINE HCL [Apresoline] 10 mg PO BID #60 tab 08/31/20 Allergies Allergy/AdvReac Type Severity Reaction Status Date / Time blue dye Allergy Severe Rash/Hives Verified 12/03/20 21:02 codeine Allergy Itching Verified 12/03/20 21:02 naproxen sodium [From Aleve] Allergy Rash/Hives Verified 12/03/20 21:02 ondansetron [From Zofran] Allergy Rash/Hives Verified 12/03/20 21:02 gabapentin AdvReac Abdominal Verified 12/03/20 21:02 Pain naloxegol [From Movantik] AdvReac Nausea & Verified 12/03/20 21:02 Vomiting Review of Systems ROS Other: All systems not noted in ROS Statement are negative. <Yudi Guardado - Last Filed: 12/03/20 22:11> ROS Other: All systems not noted in ROS Statement are negative. <Jodi Magallon - Last Filed: 12/06/20 02:11> ROS Statement: Those systems with pertinent positive or pertinent negative responses have been documented in the HPI. 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, 2019 R elbow tendon surgery, L knee arthroscopy, L hand amp d/t industrial accident, cervical fusion, bowel resection d/t diverticulitis, EGD, colonoscopy, hemorrhoidectomy, Heart cath with 2 stents on 08/26/2020 Past Anesthesia/Blood Transfusion Reactions: No Reported Reaction Past Psychological History: Anxiety, Depression Smoking Status: Current every day smoker Past Alcohol Use History: None Reported Past Drug Use History: Marijuana - Past Family History Mother Family Medical History: Cancer Additional Family Medical History / Comment(s): kidney Father Family Medical History: Cancer Additional Family Medical History / Comment(s): pancreatic <Yudi Guardado - Last Filed: 12/03/20 22:11> General Exam Limitations: no limitations General appearance: alert, in no apparent distress ENT exam: Present: normal exam, normal oropharynx, mucous membranes moist, TM's normal bilaterally Respiratory exam: Present: normal lung sounds bilaterally Cardiovascular Exam: Present: regular rate, normal rhythm, normal heart sounds. Absent: systolic murmur, diastolic murmur, rubs, gallop, clicks Neurological exam: Present: alert, oriented X3, CN II-XII intact Psychiatric exam: Present: normal affect, normal mood Skin exam: Present: warm, dry, intact, normal color. Absent: rash <Yudi Guardado - Last Filed: 12/03/20 22:11> Course Vital Signs 12/03/20 20:58 Temperature 98.1 F Pulse Rate 76 Respiratory 18 Rate Blood Pressure 137/73 O2 Sat by Pulse 99 Oximetry Medical Decision Making <Yudi Guardado - Last Filed: 12/03/20 22:11> <Jodi Magallon - Last Filed: 12/06/20 02:11> - Medical Decision Making 65-year-old male patient presents to the emergency department today for evaluation of foreign body to the left ear. The rubber portion of the patient's hearing aid came off inside his ear canal. Her CSF had removed the foreign body prior to me seeing the patient. I did inspect the tympanic membrane and ear canal which was unremarkable. He reports no pain. To be discharged follow-up with his primary care physician as needed. Return parameters were discussed in detail. He verbalizes understanding and agrees with this plan. My attending is Dr. Magallon. (Yudi Guardado) I was available for consultation in the emergency department. The history and physical exam were done by the midlevel provider. I was consulted for this patients care. I reviewed the case with the midlevel provider and based on their presentation of the patient, I agree with the assessment, medical decision making and plan of care as documented. Chart was dictated using [employer] dictation software. Attempts were made to correct any dictation errors however some typographical errors may persist. Patient was seen during a national state of emergency due to the Covid-19 pandemic. (Jodi Magallon) Disposition Is patient prescribed a controlled substance at d/c from ED?: No Time of Disposition: 21:27 <Yudi Guardado - Last Filed: 12/03/20 22:11> <Jodi Magallon - Last Filed: 12/06/20 02:11> Clinical Impression: Foreign body in left ear Disposition: HOME SELF-CARE Condition: Good Instructions (If sedation given, give patient instructions): Ear Foreign Body (ED) Additional Instructions: Follow-up with primary care physician for recheck in 1-2 days. Return to the emergency department for any new, worsening, or concerning symptoms. Referrals: Dru Colby MD [Primary Care Provider] - 1-2 days
== END 2020-12-03 21:40 | disposition home or self-care (01) ==
LOC: EC 20:49
DX: T16.2XXA Foreign body in left ear, initial encounter (principal); E78.5 Hyperlipidemia, unspecified; E11.9 Type 2 diabetes mellitus without complications; J44.9 Chronic obstructive pulmonary disease, unspecified; I25.2 Old myocardial infarction; I10 Essential (primary) hypertension; F17.200 Nicotine dependence, unspecified, uncomplicated; K21.9 Gastro-esophageal reflux disease without esophagitis; F32.9 Major depressive disorder, single episode, unspecified; F12.90 Cannabis use, unspecified, uncomplicated; Z86.73 Personal history of transient ischemic attack (TIA), and cerebral infarction without residual deficits; Z95.5 Presence of coronary angioplasty implant and graft; Z79.02 Long term (current) use of antithrombotics/antiplatelets; Z79.4 Long term (current) use of insulin
CPT/HCPCS: 99282

== ENCOUNTER 2021-01-09 12:44 | Emergency (ER) | payer BC, MEDICARE ==
[2021-01-09] MEDS ORDERED: DIPH,PERTUS(ACELL)TETVAC-LF 0.5 ML VIAL IM ONE (13:01)
--- NOTE | 2021-01-09 13:01 | ED ---
General Adult HPI - General Source: patient, police, EMS, RN notes reviewed, old records reviewed Limitations: no limitations <Abdirahman Alva - Last Filed: 01/09/21 14:31> <Shay Naranjo - Last Filed: 01/09/21 16:19> - General Stated complaint: mental health Time Seen by Provider: 01/09/21 12:46 - History of Present Illness Initial comments: 65-year-old male resents paying for psychiatric evaluation. Patient had made suicidal comments at his primary care office and was brought to the emergency Department under petition by local police. He had stated that he was planning to take Xanax or insulin in suicide attempt. He denies suicide attempt but is quite angry and agitated at the time my evaluation. Additionally the patient did punch the wall and has superficial abrasion to the right hand. No other injuries. (Abdirahman Alva) - Related Data Home Medications Medication Instructions Recorded Confirmed lisinopriL [Zestril] 20 mg PO BID 11/24/15 01/09/21 Insulin Aspart [NovoLOG Flexpen] 10 units SQ AC-LUNCH 12/15/18 01/09/21 Insulin Aspart [NovoLOG Flexpen] 20 units SQ AC-BID@0900,1800 12/15/18 01/09/21 Aspirin EC [Ecotrin Low Dose] 81 mg PO DAILY 02/15/20 01/09/21 Nitroglycerin Sl Tabs [Nitrostat] 0.4 mg SL Q5M PRN 08/18/20 01/09/21 Insulin Detemir [Levemir Flextouch] 55 units SQ DAILY 01/09/21 01/09/21 Pantoprazole [Protonix] 40 mg PO BID 01/09/21 01/09/21 amLODIPine [Norvasc] 10 mg PO DAILY 01/09/21 01/09/21 Previous Rx's Medication Instructions Recorded Clopidogrel [Plavix] 75 mg PO DAILY #30 tab 08/20/20 Metoprolol Tartrate [Lopressor] 100 mg PO BID #60 tab 08/20/20 Atorvastatin [Lipitor] 80 mg PO DAILY #30 tab 08/30/20 hydrALAZINE HCL [Apresoline] 10 mg PO BID #60 tab 08/31/20 Allergies Allergy/AdvReac Type Severity Reaction Status Date / Time blue dye Allergy Severe Rash/Hives Verified 01/09/21 14:41 codeine Allergy Itching Verified 01/09/21 14:41 naproxen sodium [From Aleve] Allergy Rash/Hives Verified 01/09/21 14:41 ondansetron [From Zofran] Allergy Rash/Hives Verified 01/09/21 14:41 gabapentin AdvReac Abdominal Verified 01/09/21 14:41 Pain naloxegol [From Movantik] AdvReac Nausea & Verified 01/09/21 14:41 Vomiting Review of Systems ROS Other: All systems not noted in ROS Statement are negative. <Abdirahman Alva - Last Filed: 01/09/21 14:31> ROS Other: All systems not noted in ROS Statement are negative. <Shay Naranjo - Last Filed: 01/09/21 16:19> ROS Statement: Those systems with pertinent positive or pertinent negative responses have been documented in the HPI. Past Medical History Past Medical History: Chest Pain / Angina, COPD, CVA/TIA, Diabetes Mellitus, GE RD/Reflux, Hearing Disorder / Deafness, Hyperlipidemia, Hypertension, Myocardial Infarction ([place]), Renal Disease Additional Past Medical History / Comment(s): IDDM type II, neuropathy bilateral feet, CVA with no residual, TIA, hydrocephalus with ENCAPSULATOR shunt, recent admissions for abdominal pain/severe depression, IBS, diverticulitis/bowel resection, hiatal hernia, DJD, occasional cervical pain, migraines, skull/head injury at age 19 with lengthy hospitalization, nephrolithiasis-passed stone on his own, [place] bilaterally. History of Any Multi-Drug Resistant Organisms: None Reported Past Surgical History: Back Surgery, Bowel Resection, Heart Catheterization With Stent, Orthopedic Surgery Additional Past Surgical History / Comment(s): 02/18/20 Robot assisted laparoscopy/extensive lysis of adhesions, ENCAPSULATOR shunt, 2019 R elbow tendon surgery, L knee arthroscopy, L hand amp d/t industrial accident, cervical fusion, bowel resection d/t diverticulitis, EGD, colonoscopy, hemorrhoidectomy, Heart cath with 2 stents on 08/26/2020 Past Anesthesia/Blood Transfusion Reactions: No Reported Reaction Past Psychological History: Anxiety, Depression Smoking Status: Current every day smoker Past Alcohol Use History: None Reported Past Drug Use History: Marijuana - Past Family History Mother Family Medical History: Cancer Additional Family Medical History / Comment(s): kidney Father Family Medical History: Cancer Additional Family Medical History / Comment(s): pancreatic <Abdirahman Alva - Last Filed: 01/09/21 14:31> General Exam General appearance: alert, in no apparent distress, anxious Head exam: Present: atraumatic, normocephalic Eye exam: Present: normal appearance, PERRL ENT exam: Present: normal exam Neck exam: Present: normal inspection. Absent: tenderness, meningismus Respiratory exam: Present: normal lung sounds bilaterally. Absent: respiratory distress, wheezes Cardiovascular Exam: Present: normal rhythm, tachycardia GI/Abdominal exam: Present: soft. Absent: distended, tenderness, guarding Extremities exam: Present: other (Superficial abrasion and minor skin tear right dorsal hand. No bony deformity. Normal range of motion, normal cap refill minimal bleeding.) Neurological exam: Present: alert, oriented X3, CN II-XII intact. Absent: motor sensory deficit Psychiatric exam: Present: agitated, suicidal ideation Skin exam: Present: warm, dry <Abdirahman Alva - Last Filed: 01/09/21 14:31> Course <Abdirahman Alva - Last Filed: 01/09/21 14:31> Vital Signs 01/09/21 13:19 Temperature 98.2 F Pulse Rate 67 Respiratory 18 Rate Blood Pressure 205/107 O2 Sat by Pulse 99 Oximetry - Reevaluation(s) Reevaluation #1: 01/09/21 13:01 Patient medically cleared awaiting EPS evaluation. (Abdirahman Alva) Reevaluation #2: 01/09/21 1500 Patient care signed out to Dr. Naranjo at shift change awaiting EPS evaluation (Abdirahman Alva) Medical Decision Making <Shay Naranjo - Last Filed: 01/09/21 16:19> - Medical Decision Making Patient was seen by mental health services with plan for discharge. Patient reevaluated by myself. Patient denies suicidal ideation and does contract for safety. Patient states he was frustrated earlier and did not truly have thoughts of harming himself. Patient does agree to return if he does have thoughts and does agree to follow-up with his primary care physician. (Shay Naranjo) - Lab Data Lab Results 01/09/21 Range/Units 13:43 Urine Opiates Screen Not Detected (NotDetected) Ur Oxycodone Screen Not Detected (NotDetected) Urine Methadone Screen Not Detected (NotDetected) Ur Propoxyphene Screen Not Detected (NotDetected) Ur Barbiturates Screen Not Detected (NotDetected) U Tricyclic Antidepress Not Detected (NotDetected) Ur Phencyclidine Scrn Not Detected (NotDetected) Ur Amphetamines Screen Not Detected (NotDetected) U Methamphetamines Scrn Not Detected (NotDetected) U Benzodiazepines Scrn Not Detected (NotDetected) Urine Cocaine Screen Not Detected (NotDetected) U Marijuana (THC) Screen Detected H (NotDetected) Disposition <Abdirahman Avla - Last Filed: 01/09/21 14:31> Is patient prescribed a controlled substance at d/c from ED?: No Time of Disposition: 16:19 <Shay Naranjo - Last Filed: 01/09/21 16:19> Clinical Impression: Depression Disposition: HOME SELF-CARE Condition: Stable Instructions (If sedation given, give patient instructions): Depression (ED), Help Prevent Suicide (ED) Additional Instructions: Please follow-up with primary care physician in the next day or 2 for recheck. Please follow-up with mental services as directed. Return for thoughts of self- harm, worsening symptoms or any other concerns. Referrals: Dru Colby MD [Primary Care Provider] - 1-2 days
[2021-01-09 13:27] VITALS: BP 205/107; PULSE 67; RESP 18; TEMP 98.2
[2021-01-09 14:11] LABS: Amphetamine Screen,Urine Not Detected (NotDetected); Barbiturate Screen,Urine Not Detected (NotDetected); Benzodiazepines Screen,Urine Not Detected (NotDetected); Cocaine Screen,Urine Not Detected (NotDetected); Methadone Screen, Urine Not Detected (NotDetected); Opiate Screen,Urine Not Detected (NotDetected); Oxycodone Screen, Urine Not Detected (NotDetected); Phencyclidine Screen,Urine Not Detected (NotDetected); Tricyclic Antidepressant,Urine Not Detected (NotDetected); Urn Cannabinoid Scrn Detected (NotDetected)
== END 2021-01-09 16:25 | disposition home or self-care (01) ==
LOC: EC 12:44
DX: F32.9 Major depressive disorder, single episode, unspecified (principal); R45.851 Suicidal ideations; S61.411A Laceration without foreign body of right hand, initial encounter; J44.9 Chronic obstructive pulmonary disease, unspecified; E78.5 Hyperlipidemia, unspecified; I10 Essential (primary) hypertension; K21.9 Gastro-esophageal reflux disease without esophagitis; I25.2 Old myocardial infarction; F41.9 Anxiety disorder, unspecified; H91.90 Unspecified hearing loss, unspecified ear; F12.90 Cannabis use, unspecified, uncomplicated; E11.40 Type 2 diabetes mellitus with diabetic neuropathy, unspecified; G43.909 Migraine, unspecified, not intractable, without status migrainosus; F17.200 Nicotine dependence, unspecified, uncomplicated; Z86.73 Personal history of transient ischemic attack (TIA), and cerebral infarction without residual deficits; Z79.02 Long term (current) use of antithrombotics/antiplatelets; Z79.4 Long term (current) use of insulin; Z79.899 Other long term (current) drug therapy; Z79.82 Long term (current) use of aspirin; Z98.2 Presence of cerebrospinal fluid drainage device; W22.01XA Walked into wall, initial encounter
CPT/HCPCS: 80306; 82075; 99285

== ENCOUNTER 2021-04-11 08:37 | Emergency (ER) | payer BC, MEDICARE ==
[2021-04-11 08:47] VITALS: RESP 18
[2021-04-11] MEDS ORDERED: hydrALAZINE HCL 20 MG/ML 1 ML VIAL IVP STA ×3 (09:04→10:27)
--- NOTE | 2021-04-11 09:09 | ED ---
General Adult HPI - General Chief complaint: Recheck/Abnormal Lab/Rx Stated complaint: High BP Time Seen by Provider: 04/11/21 08:45 Source: patient, RN notes reviewed, old records reviewed Mode of arrival: ambulatory Limitations: no limitations - History of Present Illness Initial comments: This is a 65-year-old male with past medical history significant for high blood pressure heart attack with stents and diabetes. Patient also states he has a ANALYTICAL STATISTICIAN shunt secondary to normal pressure hydrocephalus. Patient comes in today because blood pressure was elevated this morning he got up he had a headache and he felt a little off and he stated that sometimes it happens when his blood pressure is high for patient states she's been taking his blood pressure medicines recently as scheduled and has not missed any doses. Patient states he has a headache he has no blurred vision he denies any chest pain palpitations difficulty breathing shortness of breath per patient states she's had his COVID shots. Patient denies any recent fever chills or cough. Patient denies any swelling to legs or calf tenderness. Patient's only symptom is the headache. - Related Data Home Medications Medication Instructions Recorded Confirmed lisinopriL [Zestril] 20 mg PO BID 11/24/15 04/11/21 Insulin Aspart [NovoLOG Flexpen] 12 units SQ AC-LUNCH 12/15/18 04/11/21 Insulin Aspart [NovoLOG Flexpen] 20 units SQ AC-BID@0900,1800 12/15/18 04/11/21 Aspirin EC [Ecotrin Low Dose] 81 mg PO DAILY 02/15/20 04/11/21 Nitroglycerin Sl Tabs [Nitrostat] 0.4 mg SL Q5M PRN 08/18/20 04/11/21 Insulin Detemir [Levemir Flextouch] 54 units SQ DAILY 01/09/21 04/11/21 Pantoprazole [Protonix] 40 mg PO BID 01/09/21 04/11/21 Atorvastatin [Lipitor] 80 mg PO AC-SUPPER 04/11/21 04/11/21 cloNIDine HCL [Catapres] 0.1 mg PO TID 04/11/21 04/11/21 Previous Rx's Medication Instructions Recorded Clopidogrel [Plavix] 75 mg PO DAILY #30 tab 08/20/20 Metoprolol Tartrate [Lopressor] 100 mg PO BID #60 tab 08/20/20 Allergies Allergy/AdvReac Type Severity Reaction Status Date / Time blue dye Allergy Severe Rash/Hives Verified 04/11/21 10:15 codeine Allergy Itching Verified 04/11/21 10:15 naproxen sodium [From Aleve] Allergy Rash/Hives Verified 04/11/21 10:15 ondansetron [From Zofran] Allergy Rash/Hives Verified 04/11/21 10:15 gabapentin AdvReac Abdominal Verified 04/11/21 10:15 Pain naloxegol [From Movantik] AdvReac Nausea & Verified 04/11/21 10:15 Vomiting Review of Systems ROS Statement: Those systems with pertinent positive or pertinent negative responses have been documented in the HPI. ROS Other: All systems not noted in ROS Statement are negative. 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 History of Any Multi-Drug Resistant Organisms: None Reported Past Surgical History: Back Surgery, Bowel Resection, Heart Catheterization With Stent, Orthopedic Surgery Additional Past Surgical History / Comment(s): 02/18/20 Robot assisted laparoscopy/extensive lysis of adhesions, ANALYTICAL STATISTICIAN shunt, 2019 R elbow tendon surgery, L knee arthroscopy, L hand amp d/t industrial accident, cervical fusion, bowel resection d/t diverticulitis, EGD, colonoscopy, hemorrhoidectomy, Heart cath with 2 stents on 08/26/2020 Past Anesthesia/Blood Transfusion Reactions: No Reported Reaction Past Psychological History: Anxiety, Depression Smoking Status: Current every day smoker Past Alcohol Use History: None Reported Past Drug Use History: Marijuana - Past Family History Mother Family Medical History: Cancer Additional Family Medical History / Comment(s): kidney Father Family Medical History: Cancer Additional Family Medical History / Comment(s): pancreatic General Exam - General Exam Comments Initial Comments: GENERAL: Patient is well-developed and well-nourished. Patient is nontoxic and well- hydrated and is in mild distress. ENT: Neck is soft and supple. No significant lymphadenopathy is noted. Oropharynx is clear. Moist mucous membranes. Neck has full range of motion without eliciting any pain. EYES: The sclera were anicteric and conjunctiva were pink and moist. Extraocular movements were intact and pupils were equal round and reactive to light. Eyelids were unremarkable. PULMONARY: Unlabored respirations. Good breath sounds bilaterally. No audible rales rhonchi or wheezing was noted. CARDIOVASCULAR: There is a regular rate and rhythm without any murmurs gallops or rubs. ABDOMEN: Soft and nontender with normal bowel sounds. SKIN: Skin is clear with no lesions or rashes and otherwise unremarkable. NEUROLOGIC: Patient is alert and oriented x3. Cranial nerves II through XII are grossly intact. Motor and sensory are also intact. Normal speech, volume and content. Symmetrical smile. MUSCULOSKELETAL: Normal extremities with adequate strength and full range of motion. No lower extremity swelling or edema. No calf tenderness. LYMPHATICS: No significant lymphadenopathy is noted PSYCHIATRIC: Normal psychiatric evaluation. Limitations: no limitations Course Vital Signs 04/11/21 04/11/21 04/11/21 08:42 10:04 10:28 Temperature 98.2 F Pulse Rate 68 100 74 Respiratory 18 18 18 Rate Blood Pressure 194/114 195/107 172/98 O2 Sat by Pulse 99 97 98 Oximetry Medical Decision Making - Medical Decision Making EKG shows normal sinus rhythm at 66 bpm NJ interval 172 QRS is 96 QT interval 42 QTC is 421 per patient's EKG shows no ST segment elevation or depression. Chest x-ray shows no acute abnormality. CT of the brain shows no acute abnormality and a stable ANALYTICAL STATISTICIAN shunt KUB shows constipation. Patient had an enema in the emergency department with good results decreased his abdominal cramping considerably. Patient received 2 doses of hydralazine emergency department was blood pressure came down adequately. Patient will longer had a headache. - Lab Data Result diagrams: 04/11/21 09:44 04/11/21 09:44 Lab Results 04/11/21 04/11/21 04/11/21 Range/Units 09:44 09:44 09:44 WBC 11.2 H (3.8-10.6) k/uL RBC 5.80 (4.30-5.90) m/uL Hgb 18.3 H (13.0-17.5) gm/dL Hct 53.7 H (39.0-53.0) % MCV 92.5 (80.0-100.0) fL MCH 31.6 (25.0-35.0) pg MCHC 34.2 (31.0-37.0) g/dL RDW 13.4 (11.5-15.5) % Plt Count 251 (150-450) k/uL MPV 7.3 Neutrophils % 76 % Lymphocytes % 14 % Monocytes % 6 % Eosinophils % 1 % Basophils % 1 % Neutrophils # 8.5 H (1.3-7.7) k/uL Lymphocytes # 1.6 (1.0-4.8) k/uL Monocytes # 0.7 (0-1.0) k/uL Eosinophils # 0.1 (0-0.7) k/uL Basophils # 0.1 (0-0.2) k/uL PT 11.2 (9.0-12.0) sec INR 1.1 (<1.2) APTT 24.7 (22.0-30.0) sec Sodium 138 (137-145) mmol/L Potassium 4.7 (3.5-5.1) mmol/L Chloride 105 (98-107) mmol/L Carbon Dioxide 25 (22-30) mmol/L Anion Gap 8 mmol/L BUN 17 (9-20) mg/dL Creatinine 0.91 (0.66-1.25) mg/dL Est GFR (CKD-EPI)AfAm >90 (>60 ml/min/1.73 sqM) Est GFR (CKD-EPI)NonAf 88 (>60 ml/min/1.73 sqM) Glucose 122 H (74-99) mg/dL Calcium 9.8 (8.4-10.2) mg/dL Magnesium 2.4 H (1.6-2.3) mg/dL Total Bilirubin 1.2 (0.2-1.3) mg/dL AST 24 (17-59) U/L ALT 20 (4-49) U/L Alkaline Phosphatase 108 (38-126) U/L Troponin I (0.000-0.034) ng/mL Total Protein 7.1 (6.3-8.2) g/dL Albumin 4.5 (3.5-5.0) g/dL 04/11/21 Range/Units 09:44 WBC (3.8-10.6) k/uL RBC (4.30-5.90) m/uL Hgb (13.0-17.5) gm/dL Hct (39.0-53.0) % MCV (80.0-100.0) fL MCH (25.0-35.0) pg MCHC (31.0-37.0) g/dL RDW (11.5-15.5) % Plt Count (150-450) k/uL MPV Neutrophils % % Lymphocytes % % Monocytes % % Eosinophils % % Basophils % % Neutrophils # (1.3-7.7) k/uL Lymphocytes # (1.0-4.8) k/uL Monocytes # (0-1.0) k/uL Eosinophils # (0-0.7) k/uL Basophils # (0-0.2) k/uL PT (9.0-12.0) sec INR (<1.2) APTT (22.0-30.0) sec Sodium (137-145) mmol/L Potassium (3.5-5.1) mmol/L Chloride (98-107) mmol/L Carbon Dioxide (22-30) mmol/L Anion Gap mmol/L BUN (9-20) mg/dL Creatinine (0.66-1.25) mg/dL Est GFR (CKD-EPI)AfAm (>60 ml/min/1.73 sqM) Est GFR (CKD-EPI)NonAf (>60 ml/min/1.73 sqM) Glucose (74-99) mg/dL Calcium (8.4-10.2) mg/dL Magnesium (1.6-2.3) mg/dL Total Bilirubin (0.2-1.3) mg/dL AST (17-59) U/L ALT (4-49) U/L Alkaline Phosphatase (38-126) U/L Troponin I <0.012 (0.000-0.034) ng/mL Total Protein (6.3-8.2) g/dL Albumin (3.5-5.0) g/dL Disposition Clinical Impression: Abdominal cramping, Hypertensive urgency Disposition: HOME SELF-CARE Condition: Good Instructions (If sedation given, give patient instructions): Hypertension (ED), Constipation (ED), High Fiber Diet (ED) Additional Instructions: Patient should take Benefiber twice a day. Is patient prescribed a controlled substance at d/c from ED?: No Referrals: Moises Gutierrez DO [Primary Care Provider] - 1-2 days Time of Disposition: 12:46
--- NOTE | 2021-04-11 09:40 | CT ---
EXAMINATION TYPE: CT brain wo con DATE OF EXAM: 04/11/2021 COMPARISON: 04/22/2020 HISTORY: headache, high blood pressure CT DLP: 1015.[address] of the brain was performed. Ventriculoperitoneal shunt is unchanged in position with right occipital parietal approach. Distal ti p resides within the left frontal horn. Ventricles are stable. Stable remote insult left cerebellum. There is no evidence for intracranial hemorrhage or sulcal effacement. There is decreased attenuation about the periventricular white matter and deep white matter of both c erebral hemispheres, compatible with chronic small vessel ischemia. Differential diagnosis does inclu de demyelination. No mass effects are seen.No midline shift. Osseous calvarium is intact. If symptoms persist consider MRI. IMPRESSION: 1. Age related atrophic and chronic small vessel ischemic change without acute intracranial process s een at this time. Stable ventriculoperitoneal shunt.
--- NOTE | 2021-04-11 09:44 | XR ---
EXAMINATION TYPE: XR chest 2V DATE OF EXAM: 04/11/2021 COMPARISON: 08/28/2020 TECHNIQUE: PA and lateral views submitted. HISTORY: Chest pain FINDINGS: The lungs are clear and there is no pneumothorax, pleural effusion, or focal pneumonia. Heart size normal. Mildly coarsened interstitium is stable. BUSINESS PROFESSOR shunt catheter noted. Arthropathy of the shoulder s with apical thickening. No sizable pleural effusion. Hypertrophic and degenerative change of the sp ine. IMPRESSION: 1. No acute process.
[2021-04-11 09:57] LABS: Basophils # (A) 0.1 k/uL (0-0.2); Basophils % (A) 1 %; Eosinophils # (A) 0.1 k/uL (0-0.7); Eosinophils % (A) 1 %; HCT 53.7 % (39.0-53.0); HGB 18.3 gm/dL (13.0-17.5); Lymphocytes # (A) 1.6 k/uL (1.0-4.8); Lymphocytes % (A) 14 %; MCH 31.6 pg (25.0-35.0); MCHC 34.2 g/dL (31.0-37.0); MCV 92.5 fL (80.0-100.0); Mean Platelet Volume 7.3; Monocytes # (A) 0.7 k/uL (0-1.0); Monocytes % (A) 6 %; Neutrophils # (A) 8.5 k/uL (1.3-7.7); Neutrophils % (A) 76 %; Platelet Count 251 k/uL (150-450); RDW 13.4 % (11.5-15.5); WBC 11.2 k/uL (3.8-10.6)
[2021-04-11 10:07] LABS: ALT 20 U/L (4-49); AST 24 U/L (17-59); African American GFR (CKD) >90 (>60 ml/min/1.73 sqM); Albumin 4.5 g/dL (3.5-5.0); Alkaline Phosphatase 108 U/L (38-126); Anion Gap 8 mmol/L; Blood Urea Nitrogen 17 mg/dL (9-20); Calcium 9.8 mg/dL (8.4-10.2); Carbon Dioxide 25 mmol/L (22-30); Chloride 105 mmol/L (98-107); Glucose 122 mg/dL (74-99); Magnesium 2.4 mg/dL (1.6-2.3); Non-African American GFR(CKD) 88 (>60 ml/min/1.73 sqM); Sodium 138 mmol/L (137-145); Total Bilirubin 1.2 mg/dL (0.2-1.3); Total Protein 7.1 g/dL (6.3-8.2)
[2021-04-11 10:09] LABS: Potassium 4.7 mmol/L (3.5-5.1)
[2021-04-11 10:16] LABS: INR 1.1 (<1.2); Partial Thromboplastin Time 24.7 sec (22.0-30.0); Prothrombin Time 11.2 sec (9.0-12.0)
[2021-04-11] MEDS ORDERED: DICYCLOMINE 10 MG/ML 2 ML AMP IM STA (10:27)
--- NOTE | 2021-04-11 11:06 | XR ---
EXAMINATION TYPE: XR KUB DATE OF EXAM: 04/11/2021 COMPARISON: NONE HISTORY: Mid abdominal pain TECHNIQUE: One view abdominal series FINDINGS: The osseous structures are intact. The bowel gas pattern is nonspecific. Lung bases are clear. BROOMCORN THRESHER s mathis catheter noted. Arthropathy of the hips. Suspected bone island overlying the left acetabulum and femoral head. IMPRESSION: 1. Nonspecific abdomen.
[2021-04-11 13:13] VITALS: BP 162/88; PULSE 78; TEMP 97.8
== END 2021-04-11 13:12 | disposition home or self-care (01) ==
LOC: EC 08:37
DX: I16.0 Hypertensive urgency (principal); R10.9 Unspecified abdominal pain; K21.9 Gastro-esophageal reflux disease without esophagitis; E78.5 Hyperlipidemia, unspecified; I25.2 Old myocardial infarction; J44.9 Chronic obstructive pulmonary disease, unspecified; F41.9 Anxiety disorder, unspecified; F32.9 Major depressive disorder, single episode, unspecified; F17.200 Nicotine dependence, unspecified, uncomplicated; F12.90 Cannabis use, unspecified, uncomplicated; Z79.4 Long term (current) use of insulin; Z79.82 Long term (current) use of aspirin; Z88.1 Allergy status to other antibiotic agents; Z86.73 Personal history of transient ischemic attack (TIA), and cerebral infarction without residual deficits
CPT/HCPCS: 99284; 96374; 96376; 96372; 36415; 93005; 80053; 83735; 84484; 85025; 85610; 85730; 71046; 74018; 70450; J0360; J0500

== ENCOUNTER 2021-10-09 23:49 | Observation (INO) | payer BC, MEDICARE ==
[2021-10-10] MEDS ORDERED: SODIUM CHLORIDE 0.9% 500 ML 500 ML IV STA (00:02)
[2021-10-10] MEDS ORDERED: SODIUM CHLORIDE 0.9% 1,000 ML IV STA (00:02)
--- NOTE | 2021-10-10 00:04 | ED ---
Chest Pain HPI - General Chief Complaint: Chest Pain Stated Complaint: Chest pain, SOB Time Seen by Provider: 10/10/21 00:02 Source: patient, RN notes reviewed, old records reviewed Mode of arrival: wheelchair Limitations: no limitations - History of Present Illness Initial Comments: This is a 66-year-old male to the emergency department for evaluation patient presents today for evaluation regards to chest pain chest pain that awoke him from sleep. Patient does admit to being sweaty when he woke from sleep with chest pain. His pain is improved currently here in the ER with no shortness of breath. Diaphoresis has ceased the patient still has occasional bouts of pain here in the ER, Complaint: chest pain -: minutes(s) Onset: awoke with symptoms Pain Location: substernal, left chest Severity: moderate Severity scale (1-10): 6 Quality: tightness, heaviness Consistency: constant Improves With: nothing Worsens With: nothing Context: other (Patient does have history of prior MD) Anginal Symptoms: sense of impending doom Other Symptoms: palpitations Treatments Prior to Arrival: none - Related Data Home Medications Medication Instructions Recorded Confirmed lisinopriL [Zestril] 20 mg PO BID 11/24/15 04/11/21 Insulin Aspart [NovoLOG Flexpen] 12 units SQ AC-LUNCH 12/15/18 04/11/21 Insulin Aspart [NovoLOG Flexpen] 20 units SQ AC-BID@0900,1800 12/15/18 04/11/21 Aspirin EC [Ecotrin Low Dose] 81 mg PO DAILY 02/15/20 04/11/21 Nitroglycerin Sl Tabs [Nitrostat] 0.4 mg SL Q5M PRN 08/18/20 04/11/21 Insulin Detemir [Levemir Flextouch] 54 units SQ DAILY 01/09/21 04/11/21 Pantoprazole [Protonix] 40 mg PO BID 01/09/21 04/11/21 Atorvastatin [Lipitor] 80 mg PO AC-SUPPER 04/11/21 04/11/21 cloNIDine HCL [Catapres] 0.1 mg PO TID 04/11/21 04/11/21 Previous Rx's Medication Instructions Recorded Clopidogrel [Plavix] 75 mg PO DAILY #30 tab 08/20/20 Metoprolol Tartrate [Lopressor] 100 mg PO BID #60 tab 08/20/20 Allergies Allergy/AdvReac Type Severity Reaction Status Date / Time blue dye Allergy Severe Rash/Hives Verified 10/09/21 23:51 codeine Allergy Itching Verified 10/09/21 23:51 naproxen sodium [From Aleve] Allergy Rash/Hives Verified 10/09/21 23:51 ondansetron [From Zofran] Allergy Rash/Hives Verified 10/09/21 23:51 gabapentin AdvReac Abdominal Verified 10/09/21 23:51 Pain naloxegol [From Movantik] AdvReac Nausea & Verified 10/09/21 23:51 Vomiting Review of Systems ROS Statement: Those systems with pertinent positive or pertinent negative responses have been documented in the HPI. ROS Other: All systems not noted in ROS Statement are negative. EKG Findings - EKG Comments: EKG Findings:: EKG is sinus rhythm 75 MO 161 QRS 96 QTc 404. repeat. EKG shows sinus rhythm 73 MO 155 QRS 100 QTc 404. Repeat. EKG shows sinus rhythm 77 MO 162 QRS 102 QTC 405 Past Medical History Past Medical History: Chest Pain / Angina, COPD, CVA/TIA, Diabetes Mellitus, GERD/Reflux, Hearing Disorder / Deafness, Hyperlipidemia, Hypertension, Myocardial Infarction ([place]), Renal Disease Additional Past Medical History / Comment(s): IDDM type II, neuropathy bilateral feet, CVA with no residual, TIA, hydrocephalus with SENIOR DRAFTER shunt, recent admissions for abdominal pain/severe depression, IBS, diverticulitis/bowel resection, hiatal hernia, DJD, occasional cervical pain, migraines, skull/head injury at age 19 with lengthy hospitalization, nephrolithiasis-passed stone on his own, [place]OT bilaterally. History of Any Multi-Drug Resistant Organisms: None Reported Past Surgical History: Back Surgery, Bowel Resection, Heart Catheterization With Stent, Orthopedic Surgery Additional Past Surgical History / Comment(s): 02/18/20 Robot assisted laparoscopy/extensive lysis of adhesions, SENIOR DRAFTER shunt, 2019 R elbow tendon surgery, L knee arthroscopy, L hand amp d/t industrial accident, cervical fusion, bowel resection d/t diverticulitis, EGD, colonoscopy, hemorrhoidectomy, Heart cath with 2 stents on 08/26/2020 Past Anesthesia/Blood Transfusion Reactions: No Reported Reaction Past Psychological History: Anxiety, Depression Smoking Status: Current every day smoker Past Alcohol Use History: None Reported Past Drug Use History: Marijuana - Past Family History Mother Family Medical History: Cancer Additional Family Medical History / Comment(s): kidney Father Family Medical History: Cancer Additional Family Medical History / Comment(s): pancreatic General Exam Limitations: no limitations General appearance: alert, in no apparent distress, anxious Head exam: Present: atraumatic, normocephalic, normal inspection Eye exam: Present: normal appearance, PERRL, EOMI. Absent: scleral icterus, conjunctival injection, periorbital swelling ENT exam: Present: normal exam, mucous membranes moist Neck exam: Present: normal inspection. Absent: tenderness, meningismus, lymphadenopathy Respiratory exam: Present: normal lung sounds bilaterally. Absent: respiratory distress, wheezes, rales, rhonchi, stridor Cardiovascular Exam: Present: regular rate, normal rhythm, normal heart sounds. Absent: systolic murmur, diastolic murmur, rubs, gallop, clicks GI/Abdominal exam: Present: soft, normal bowel sounds. Absent: distended, tenderness, guarding, rebound, rigid Extremities exam: Present: normal inspection, full ROM, normal capillary refill. Absent: tenderness, pedal edema, joint swelling, calf tenderness Back exam: Present: normal inspection Neurological exam: Present: alert, oriented X3, CN II-XII intact Psychiatric exam: Present: normal affect, normal mood Skin exam: Present: warm, dry, intact, normal color. Absent: rash Course Vital Signs 10/09/21 10/10/21 10/10/21 23:51 00:41 01:18 Temperature 97.6 F Pulse Rate 75 78 80 Respiratory 20 18 18 Rate Blood Pressure 199/112 183/107 173/98 O2 Sat by Pulse 99 98 98 Oximetry - Reevaluation(s) Reevaluation #1: 10/10/21 01:08 Medical records reviewed Reevaluation #2: 10/10/21 02:17 Patient symptoms are relatively improved here in the ER blood pressure improved Reevaluation #3: 10/10/21 02:17 Patient informed of results and questions answered Reevaluation #4: 10/10/21 02:18 Patient has no current chest pain - Consultations Consultation #1: Spoke with [facility] agreed to admit this patient Chest Pain MDM - MDM 66 male to the emergency department for evaluation patient presents today for evaluation of increasing chest pain diaphoresis that awoke him from sleep history of MD about one year ago. Patient be admitted for cardiac observation Critical Care Time Critical Care Time: Yes Total Critical Care Time: 31 Disposition Clinical Impression: Chest pain, Unstable angina pectoris Disposition: ADMITTED IP TO THIS HOSP Condition: Undetermined Is patient prescribed a controlled substance at d/c from ED?: No
[2021-10-10] MEDS ORDERED: NITROGLYCERIN SL TABS 0.4 MG TAB SUBLINGUAL STA (00:15)
[2021-10-10] MEDS ORDERED: LABETALOL 5 MG/ML VIAL MDV IVP STA ×4 (00:15→06:48)
[2021-10-10 00:33] LABS: Basophils # (A) 0.1 k/uL (0-0.2); Basophils % (A) 1 %; Eosinophils # (A) 0.3 k/uL (0-0.7); Eosinophils % (A) 2 %; HCT 54.5 % (39.0-53.0); HGB 18.4 gm/dL (13.0-17.5); Lymphocytes # (A) 2.9 k/uL (1.0-4.8); Lymphocytes % (A) 25 %; MCH 32.4 pg (25.0-35.0); MCHC 33.7 g/dL (31.0-37.0); Monocytes # (A) 0.8 k/uL (0-1.0); Monocytes % (A) 6 %; Neutrophils # (A) 7.5 k/uL (1.3-7.7); Neutrophils % (A) 63 %; Platelet Count 259 k/uL (150-450); RBC 5.68 m/uL (4.30-5.90); RDW 13.4 % (11.5-15.5); WBC 11.9 k/uL (3.8-10.6)
[2021-10-10 00:39] LABS: INR 1.1 (<1.2); Prothrombin Time 11.6 sec (9.0-12.0)
[2021-10-10 00:46] LABS: Albumin 4.3 g/dL (3.5-5.0); Calcium 9.6 mg/dL (8.4-10.2); Magnesium 1.8 mg/dL (1.6-2.3); Potassium 4.4 mmol/L (3.5-5.1); Total Bilirubin 1.1 mg/dL (0.2-1.3); Total Protein 7.2 g/dL (6.3-8.2)
--- NOTE | 2021-10-10 01:03 | XR ---
EXAMINATION TYPE: XR chest 2V DATE OF EXAM: 10/10/2021 COMPARISON: 04/11/2021 HISTORY: Chest pain TECHNIQUE: 2 views FINDINGS: There is no heart failure nor confluent pneumonic infiltrate. Costophrenic angles are clear . Bony thorax is intact. There is a right-sided ventricular peritoneal shunt catheter noted. IMPRESSION: No active cardiopulmonary disease. Normal heart. No change.
[2021-10-10] MEDS ORDERED: NITROGLYCERIN SL TABS 0.4 MG TAB SUBLINGUAL PRN (01:09)
[2021-10-10] MEDS ORDERED: MORPHINE SULFATE 4 MG/ML SYRINGE IV PRN (01:09)
[2021-10-10] MEDS ORDERED: ASPIRIN 81 MG PO STA (01:09)
[2021-10-10] MEDS ORDERED: SODIUM CHLORIDE 0.9% 1,000 ML IV SCH (01:15)
[2021-10-10] MEDS ORDERED: cloNIDine HCL 0.1 MG TAB PO STA ×2 (05:10→06:48)
[2021-10-10] MEDS ORDERED: cloNIDine 0.1 MG/24HR PATCH TRANSDERM SCH (05:15)
[2021-10-10] MEDS ORDERED: hydrALAZINE HCL 20 MG/ML 1 ML VIAL IVP STA (06:48)
[2021-10-10] MEDS ORDERED: hydrALAZINE HCL 50 MG TAB PO PRN (07:10)
[2021-10-10] MEDS ORDERED: INSULIN ASPART (NovoLOG) 100 UNIT/ML VIAL SQ SCH (07:30)
[2021-10-10 08:57] VITALS: PULSE 88; RESP 20; TEMP 97.4
[2021-10-10] MEDS ORDERED: ATORVASTATIN 80 MG TAB PO SCH (09:00)
[2021-10-10] MEDS ORDERED: CLOPIDOGREL 75 MG TAB PO SCH (09:00)
[2021-10-10] MEDS ORDERED: METOPROLOL TARTRATE 50 MG TAB PO SCH ×2 (09:00)
[2021-10-10] MEDS ORDERED: lisinopriL 20 MG TAB PO SCH (09:00)
[2021-10-10] MEDS ORDERED: FAMOTIDINE 20 MG/2 ML VIAL IV SCH (09:00)
--- NOTE | 2021-10-10 09:08 | P.HPIM ---
History of Present Illness This is a pleasant 66 years old male with past medical history of COPD, CVA/TIA, Diabetes Mellitus, GERD/Reflux, Hearing Disorder / Deafness, Hyperlipidemia, Hypertension, neuropathy bilateral feet, CVA with no residual, TIA, hydroc ephalus with EXERCISE TEACHER shunt, recent admissions for abdominal pain/severe depression, IBS, diverticulitis/bowel resection, hiatal hernia, DJD, occasional cervical pain, migraines, skull/head injury at age 19 with lengthy hospitalization, nephrolithiasis-passed stone on his own, , Anxiety, Depression, ,Current every day smoker. Patient presents because he woke up with sweats, nausea and chest pressure, on the left side, nonradiating about 3-4/10 in severity. No dyspnea or coughing. However he has some pain in the abdomen for the last 2 days about 60/10 across his midabdomen, us associated with some soft diet which is non-the bone. No urinary symptoms, no dysuria or urgency or change in frequency. He had a mild headache, frontal for about a day. No weakness or numbness. He feels tired and exhausted for the last 2 days. He has history of neck surgery with chronic right hand numbness. He smokes about 1 pack per day and he is counseled and agrees to quit into the nicotine patch, he denies alcohol or illicit drugs. He has history of EXERCISE TEACHER shunt On admission patient is hypertensive, 173/94, went up to 200/116. That showing mild leukocytosis of 11.9, hemoglobin 18.4, INR is 1.1, BMP and liver enzymes are unremarkable. Lipase slightly elevated 794, troponin 3 are negative is less than 0.012. Coronavirus: Not detected EKG showing normal sinus rhythm at [address]-T changes. QTC 405. Chest x-ray: No acute process. In the emergency room patient received several doses of clonidine, labetalol and hydralazine. Agricultural Production Engineer consulted, and they evaluated the patient while he is in the emergency room, as per their recommendation patient declined both cardiac And stress test, he has an appointment with Dr. Mcguire in 2 days at 224 and they cleared him for discharge Review of Systems CONSTITUTIONAL: No fever, no malaise, no fatigue. HEENT: No recent visual problems or hearing problems. Denied any sore throat. CARDIOVASCULAR: No orthopnea, PND, no palpitations, no syncope. PULMONARY: No shortness of breath, no cough, no hemoptysis. GASTROINTESTINAL: No diarrhea, no nausea, no vomiting, no abdominal pain. Normoactive bowel sounds. NEUROLOGICAL: No headaches, no weakness, no numbness. HEMATOLOGICAL: Denies any bleeding or petechiae. GENITOURINARY: Denies any burning micturition, frequency, or urgency. MUSCULOSKELETAL/RHEUMATOLOGICAL: Denies any joint pain, swelling, or any muscle pain. ENDOCRINE: Denies any polyuria or polydipsia. Past Medical History Past Medical History: Chest Pain / Angina, COPD, CVA/TIA, Diabetes Mellitus, GERD/Reflux, Hearing Disorder / Deafness, Hyperlipidemia, Hypertension, Myocardial Infarction ([place]), Renal Disease Additional Past Medical History / Comment(s): IDDM type II, neuropathy bilateral feet, CVA with no residual, TIA, hydrocephalus with EXERCISE TEACHER shunt, recent admissions for abdominal pain/severe depression, IBS, diverticulitis/bowel resection, hiatal hernia, DJD, occasional cervical pain, migraines, skull/head injury at age 19 with lengthy hospitalization, nephrolithiasis-passed stone on his own, HO H bilaterally. History of Any Multi-Drug Resistant Organisms: None Reported Past Surgical History: Back Surgery, Bowel Resection, Heart Catheterization With Stent, Orthopedic Surgery Additional Past Surgical History / Comment(s): 02/18/20 Robot assisted laparoscopy/extensive lysis of adhesions, EXERCISE TEACHER shunt, 2019 R elbow tendon surgery, L knee arthroscopy, L hand amp d/t industrial accident, cervical fusion, bowel resection d/t diverticulitis, EGD, colonoscopy, hemorrhoidectomy, Heart cath with 2 stents on 08/26/2020 Past Anesthesia/Blood Transfusion Reactions: No Reported Reaction Past Psychological History: Anxiety, Depression Smoking Status: Current every day smoker Past Alcohol Use History: None Reported Past Drug Use History: Marijuana - Past Family History Mother Family Medical History: Cancer Additional Family Medical History / Comment(s): kidney Father Family Medical History: Cancer Additional Family Medical History / Comment(s): pancreatic Medications and Allergies Home Medications Medication Instructions Recorded Confirmed Type lisinopriL [Zestril] 20 mg PO BID 11/24/15 10/10/21 History Insulin Aspart [NovoLOG Flexpen] 12 units SQ AC-LUNCH 12/15/18 10/10/21 History Insulin Aspart [NovoLOG Flexpen] 22 units SQ AC-BID@0900,1800 12/15/18 10/10/21 History Aspirin EC [Ecotrin Low Dose] 81 mg PO DAILY 02/15/20 10/10/21 History Nitroglycerin Sl Tabs [Nitrostat] 0.4 mg SL Q5M PRN 08/18/20 10/10/21 History Clopidogrel [Plavix] 75 mg PO DAILY #30 tab 08/20/20 10/10/21 Rx Metoprolol Tartrate [Lopressor] 100 mg PO BID #60 tab 08/20/20 10/10/21 Rx Insulin Detemir [Levemir Flextouch] 55 units SQ DAILY 01/09/21 10/10/21 History cloNIDine HCL [Catapres] 0.2 mg PO TID 10/10/21 10/10/21 History Allergies Allergy/AdvReac Type Severity Reaction Status Date / Time blue dye Allergy Severe Rash/Hives Verified 10/10/21 07:15 codeine Allergy Itching Verified 10/10/21 07:15 naproxen sodium [From Aleve] Allergy Rash/Hives Verified 10/10/21 07:15 ondansetron [From Zofran] Allergy Rash/Hives Verified 10/10/21 07:15 gabapentin AdvReac Abdominal Verified 10/10/21 07:15 Pain naloxegol [From Movantik] AdvReac Nausea & Verified 10/10/21 07:15 Vomiting Physical Exam Vitals: Vital Signs Temp Pulse Resp BP Pulse Ox 10/10/21 07:03 96 18 200/116 98 10/10/21 05:51 90 19 187/115 97 10/10/21 05:00 93 19 200/117 97 10/10/21 04:00 98 18 183/109 98 10/10/21 03:25 87 18 173/94 98 10/10/21 01:18 80 18 173/98 98 10/10/21 00:41 78 18 183/107 98 10/09/21 23:51 97.6 F 75 20 199/112 99 Intake and Output 10/09/21 10/10/21 10/10/21 22:59 06:59 14:59 Other: Weight 90.718 kg GENERAL: The patient is alert and oriented x3, not in any acute distress. Well developed, well nourished. HEENT: Pupils are round and equally reacting to light. EOMI. No scleral icterus. No conjunctival pallor. Normocephalic, atraumatic. No pharyngeal erythema. No thyromegaly. CARDIOVASCULAR: S1 and S2 present. No murmurs, rubs, or gallops. PULMONARY: Chest is clear to auscultation, no wheezing or crackles. ABDOMEN: Soft, nontender, nondistended, normoactive bowel sounds. No palpable organomegaly. MUSCULOSKELETAL: No joint swelling or deformity. EXTREMITIES: No cyanosis, clubbing, or pedal edema. NEUROLOGICAL: Gross neurological examination did not reveal any focal deficits. SKIN: No rashes. No petechiae Results CBC & Chem 7: 10/10/21 00:19 10/10/21 00:19 Labs: Abnormal Lab Results - Last 24 Hours (Table) 10/10/21 10/10/21 Range/Units 00:19 00:19 WBC 11.9 H (3.8-10.6) k/uL Hgb 18.4 H (13.0-17.5) gm/dL Hct 54.5 H (39.0-53.0) % Sodium 136 L (137-145) mmol/L Carbon Dioxide 21 L (22-30) mmol/L Glucose 149 H (74-99) mg/dL Lipase 794 H (23-300) U/L Assessment and Plan Assessment: Chest pain, rule out cardiac causes Hypertension, with urgency present on admission Nicotine dependence Non-specific abdominal pain Diabetes mellitus Hyperlipidemia History of stroke with no residual effects COPD, not exacerbation History of GERD Hearing difficulty History of hydrocephalus with EXERCISE TEACHER shunt Irritable bowel syndrome History of diverticulitis History of hiatal hernia History of degenerative disc disease and cervical pain History of migraine Plan: This is a pleasant 66 years old male who presents because of chest pain Continue with aspirin and Plavix Cardiology consult, already examined the patient and cleared him for discharge to follow up with his substitute school nurse Dr. Guillen in 2 days in regards to his chest pain however his blood pressure still uncontrolled Continue with his clonidine, metoprolol, lisinopril, hydralazine when necessary Slide insulin at lower dose and continue with insulin sliding scale We will keep monitoring Labs and medication were reviewed.. Continue same treatment. Continue with symptomatic treatment. Resume home medication. Monitor lytes and vitals. DVT and GI prophylaxis. Further recommendations depends on the clinical course of the patient DVT prophylaxis: Subcutaneous heparin GI Prophylaxis: Pepcid
--- NOTE | 2021-10-10 09:08 | P.CRDCN ---
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 He follows in the office with Dr. Guillen. We have been asked to see in consultation for chest pain. Patient presents emergency department with an episode of chest pain last night. He states it woke him up out of bed. His chest pain with a left-sided of his chest, felt sharp. It resolved after a few seconds. He also had diaphoresis. It resolved on its own. He was concerned that he may of had a heart attack and presented to the emergency department. He had no associated palpitations, shortness of breath, nausea, vomiting, lightheadedness, dizziness, or syncope/near syncope. No orthopnea, PND, lower extremity edema. No specific aggravating factors or alleviating factors. His chest pain did not return. It is nonradiating, nonexertional. He continues to smoke daily. Denies alcohol use or illicit drug use. Patient states that this is not similar to when he had a stenting done in 08/2020, he states at that time he did not have any chest discomfort. However, in 08/28/2020 patient presented back to the emergency department with symptoms of chest discomfort, dyspnea and dizziness. He underwent repeat cardiac catheterization which revealed mid circumflex lesion of 5060%, mid RCA with 70% stenosis, distal RCA lesion in the range of 50%, LAD in the proximal to midpo rtion gives rise to diagonal branch which has ostial lesion appeared to be in the range of 80%. Patient underwent PCI to the mid RCA. DIAGNOSTICS EKG reveals sinus rhythm, heart rate 77, T wave inversion in inferior leads. LVH, nonspecific T-wave abnormalities. Most recent echocardiogram 08/20/2020 revealed EF 5560 percent, mild mitral regurgitation, mild tricuspid regurgitation. Chest xray no acute cardiopulmonary process. Most recent stress test 2019 Cardiolite revealed no reversible ischemia. Laboratory reviewed, WBC 11.9, hemoglobin 18.4, platelets 259, sodium 136, potassium 4.4, BUN 17, serum creatinine 1.0, magnesium 1.8, troponin negative 3, proBNP 567, lipase 794, COVID-19 negative Current home medications include clonidine 0.2 mg 3 times a day, metoprolol titrate 100 mg twice a day, Plavix 75 mg daily, aspirin 81 mg daily, lisinopril 20 mg twice a day REVIEW OF SYSTEMS At the time of my exam: CONSTITUTIONAL: Denies fever or chills. CARDIOVASCULAR: Denies chest pain, shortness of breath, orthopnea, PND or palpitations. RESPIRATORY: Denies cough. GASTROINTESTINAL: Denies abdominal pain, diarrhea, constipation, nausea or vomiting. MUSCULOSKELETAL: Denies myalgias. NEUROLOGIC: Denies numbness, tingling, headache or weakness. ENDOCRINE: Denies fatigue, weight change, polydipsia or polyurina. GENITOURINARY: Denies burning, hematuria or urgency with micturation. HEMATOLOGIC: Denies history of anemia or bleeding. PHYSICAL EXAMINATION Blood pressure 191/88, heart rate 92, afebrile, oxygen saturations 97% on room air CONSTITUTIONAL: No apparent distress. HEENT: Head is normocephalic. Pupils are equal, round. Sclerae anicteric. Mucous membranes of the mouth are moist. No JVD. No carotid bruit. CHEST EXAMINATION: Lungs are clear to auscultation. No chest wall tenderness is noted on palpation or with deep breathing. HEART EXAMINATION: Regular rate and rhythm. S1, S2 heard. No murmurs, gallops or rub. ABDOMEN: Soft, nontender. Positive bowel sounds. EXTREMITIES: 2+ peripheral pulses, no lower extremity edema and no calf tenderness. SKIN: warm, dry NEUROLOGIC EXAMINATION: Patient is awake, alert and oriented x3. ASSESSMENT Chest pain, atypical, acute coronary syndrome has been ruled out Type 2 Diabetes Hypertension Coronary artery disease status post PCI mid RCA in 08/2020 Chronic nicotine dependence History of TIA PLAN -An acute coronary event has been ruled out with no EKG evidence of ischemia and negative cardiac enzymes. -We are recommending a stress test. However, at this time patient is refusing further cardiac testing. We had a long discussion with the patient and discussed benefits and risks of stress testing and cardiac catheterization, as well as the risks of not doing any testing. Patient understands those risks and he does not want any cardiac testing at this time and would like to follow up with Dr. Guillen as planned. -We will obtain 2D echocardiogram and doppler study to assess cardiac structure and function prior to discharge. Patient has an appointment with Dr. Guillen on 10/12/2021. -Restart patient's home cardiac medications -Please reach out with any further questions or concerns Thank you kindly for this consultation. Nurse practitioner note has been reviewed by physician. Signing provider agrees with the documented findings, assessment, and plan of care. Past Medical History Past Medical History: Chest Pain / Angina, COPD, CVA/TIA, Diabetes Mellitus, GERD/Reflux, Hearing Disorder / Deafness, Hyperlipidemia, Hypertension, Myocardial Infarction ([place]), Renal Disease Additional Past Medical History / Comment(s): IDDM type II, neuropathy bilateral feet, CVA with no residual, TIA, hydrocephalus with CARD PUNCHER shunt, recent admissions for abdominal pain/severe depression, IBS, diverticulitis/bowel resection, hiatal hernia, DJD, occasional cervical pain, migraines, skull/head injury at age 19 with lengthy hospitalization, nephrolithiasis-passed stone on his own, [employer] [place] bilaterally. History of Any Multi-Drug Resistant Organisms: None Reported Past Surgical History: Back Surgery, Bowel Resection, Heart Catheterization With Stent, Orthopedic Surgery Additional Past Surgical History / Comment(s): 02/18/20 Robot assisted laparoscopy/extensive lysis of adhesions, CARD PUNCHER shunt, 2019 R elbow tendon surgery, L knee arthroscopy, L hand amp d/t industrial accident, cervical fusion, bowel resection d/t diverticulitis, EGD, colonoscopy, hemorrhoidectomy, Heart cath with 2 stents on 08/26/2020 Past Anesthesia/Blood Transfusion Reactions: No Reported Reaction Past Psychological History: Anxiety, Depression Smoking Status: Current every day smoker Past Alcohol Use History: None Reported Past Drug Use History: Marijuana - Past Family History Mother Family Medical History: Cancer Additional Family Medical History / Comment(s): kidney Father Family Medical History: Cancer Additional Family Medical History / Comment(s): pancreatic Medications and Allergies Home Medications Medication Instructions Recorded Confirmed Type lisinopriL [Zestril] 20 mg PO BID 11/24/15 10/10/21 History Insulin Aspart [NovoLOG Flexpen] 12 units SQ AC-LUNCH 12/15/18 10/10/21 History Insulin Aspart [NovoLOG Flexpen] 22 units SQ AC-BID@0900,1800 12/15/18 10/10/21 History Aspirin EC [Ecotrin Low Dose] 81 mg PO DAILY 02/15/20 10/10/21 History Nitroglycerin Sl Tabs [Nitrostat] 0.4 mg SL Q5M PRN 08/18/20 10/10/21 History Clopidogrel [Plavix] 75 mg PO DAILY #30 tab 08/20/20 10/10/21 Rx Metoprolol Tartrate [Lopressor] 100 mg PO BID #60 tab 08/20/20 10/10/21 Rx Insulin Detemir [Levemir Flextouch] 55 units SQ DAILY 01/09/21 10/10/21 History cloNIDine HCL [Catapres] 0.2 mg PO TID 10/10/21 10/10/21 History Allergies Allergy/AdvReac Type Severity Reaction Status Date / Time blue dye Allergy Severe Rash/Hives Verified 10/10/21 07:15 codeine Allergy Itching Verified 10/10/21 07:15 naproxen sodium [From Aleve] Allergy Rash/Hives Verified 10/10/21 07:15 ondansetron [From Zofran] Allergy Rash/Hives Verified 10/10/21 07:15 gabapentin AdvReac Abdominal Verified 10/10/21 07:15 Pain naloxegol [From Movantik] AdvReac Nausea & Verified 10/10/21 07:15 Vomiting Physical Exam Vitals: Vital Signs Temp Pulse Resp BP Pulse Ox 10/10/21 07:03 96 18 200/116 98 10/10/21 05:51 90 19 187/115 97 10/10/21 05:00 93 19 200/117 97 10/10/21 04:00 98 18 183/109 98 10/10/21 03:25 87 18 173/94 98 10/10/21 01:18 80 18 173/98 98 10/10/21 00:41 78 18 183/107 98 10/09/21 23:51 97.6 F 75 20 199/112 99 Intake and Output 10/09/21 10/10/21 10/10/21 22:59 06:59 14:59 Other: Weight 90.718 kg Results 10/10/21 00:19 10/10/21 00:19 Cardiac Enzymes 10/10/21 10/10/21 10/10/21 Range/Units 00:19 00:19 01:55 AST 26 (17-59) U/L Troponin I <0.012 <0.012 (0.000-0.034) ng/mL 10/10/21 Range/Units 03:34 AST (17-59) U/L Troponin I <0.012 (0.000-0.034) ng/mL Coagulation 10/10/21 Range/Units 00:19 PT 11.6 (9.0-12.0) sec APTT 25.0 (22.0-30.0) sec CBC 10/10/21 Range/Units 00:19 WBC 11.9 H (3.8-10.6) k/uL RBC 5.68 (4.30-5.90) m/uL Hgb 18.4 H (13.0-17.5) gm/dL Hct 54.5 H (39.0-53.0) % Plt Count 259 (150-450) k/uL Comprehensive Metabolic Panel 10/10/21 Range/Units 00:19 Sodium 136 L (137-145) mmol/L Potassium 4.4 (3.5-5.1) mmol/L Chloride 106 (98-107) mmol/L Carbon Dioxide 21 L (22-30) mmol/L BUN 17 (9-20) mg/dL Creatinine 1.05 (0.66-1.25) mg/dL Glucose 149 H (74-99) mg/dL Calcium 9.6 (8.4-10.2) mg/dL AST 26 (17-59) U/L ALT 29 (4-49) U/L Alkaline Phosphatase 125 (38-126) U/L Total Protein 7.2 (6.3-8.2) g/dL Albumin 4.3 (3.5-5.0) g/dL Current Medications Generic Name Dose Route Start Last Admin Trade Name Freq PRN Reason Stop Dose Admin Aspirin 325 mg 10/11/21 09:00 Aspirin 325 Mg Tab PO DAILY OPAL Atorvastatin Calcium 80 mg 10/10/21 09:00 Atorvastatin 80 Mg Tab PO DAILY OPAL Clonidine HCl 1 patch 10/10/21 05:15 10/10/21 05:38 Clonidine 0.1 Mg/24hr Patch TRANSDERM 1 patch Q7D OPAL Administration Sodium Chloride 1,000 mls @ 100 mls/hr 10/10/21 00:02 10/10/21 00:25 Saline 0.9% IV 10/10/21 10:01 100 mls/hr .Q10H STA Administration Sodium Chloride 1,000 mls @ 20 mls/hr 10/10/21 01:15 10/10/21 03:16 Saline 0.9% IV Not Given .Q24H OPAL Metoprolol Tartrate 50 mg 10/10/21 09:00 Metoprolol Tartrate 50 Mg Tab PO BID OPAL Morphine Sulfate 4 mg 10/10/21 01:09 10/10/21 01:45 Morphine Sulfate 4 Mg/Ml Syringe IV 4 mg Q4HR PRN Administration Chest Pain Nitroglycerin 0.4 mg 10/10/21 01:09 Nitroglycerin Sl Tabs 0.4 Mg Tab SUBLINGUAL Q5M PRN Chest Pain Sodium Chloride 10 ml 10/10/21 09:00 Sodium Chloride 0.9% Flush 10 Ml Syringe IV BID OPAL Intake and Output 10/09/21 10/10/21 10/10/21 22:59 06:59 14:59 Other: Weight 90.718 kg 10/10/21 00:19 10/10/21 00:19
[2021-10-10] MEDS ORDERED: NICOTINE 21MG/24HR PATCH TRANSDERM SCH (09:15)
--- NOTE | 2021-10-10 09:45 | ECHOF ---
Referral Reason:cp. LV function MEASUREMENTS -------- HEIGHT: 172.7 cm WEIGHT: 90.7 kg BP: 191/88 RVIDd: 3.3 cm (< 3.3) IVSd: 1.4 cm (0.6 - 1.1) LVIDd: 4.0 cm (3.9 - 5.3) LVPWd: 1.3 cm (0.6 - 1.1) IVSs: 2.4 cm LVIDs: 2.8 cm LVPWs: 1.8 cm LA Diam: 3.7 cm (2.7 - 3.8) LAESV Index (A-L): 23.70 ml/m Ao Diam: 3.4 cm (2.0 - 3.7) AV Cusp: 2.0 cm (1.5 - 2.6) MV EXCURSION: 16.659 mm (> 18.000) MV EF SLOPE: 41 mm/s (70 - 150) EPSS: 0.4 cm MV E Collins: 0.81 m/s MV DecT: 285 ms MV A Collins: 1.15 m/s MV E/A Ratio: 0.71 FINDINGS -------- Sinus rhythm. This was a technically adequate study. The left ventricular size is normal. There is moderate concentric left ventricular hypertrophy. O verall left ventricular systolic function is normal with, an EF between 55 - 60 %. The right ventricle is mildly enlarged. Normal LA size by volume 22+/-6 ml/m2. The right atrium is normal in size. Interatrial and interventricular septum intact. The aortic valve is trileaflet, and appears structurally normal. No aortic stenosis or regurgitation. The mitral valve is normal. There is trace mitral regurgitation. The tricuspid valve appears structurally normal. Trace tricuspid regurgitation present. There is no pulmonic regurgitation present. The aortic root size is normal. Normal inferior vena cava with normal inspiratory collapse consistent with estimated right atrial pre ssure of 5 mmHg. There is no pericardial effusion. CONCLUSIONS -------- 1. There is moderate concentric left ventricular hypertrophy. 2. Overall left ventricular systolic function is normal with, an EF between 55 - 60 %. 3. The right ventricle is mildly enlarged. 4. The aortic valve is trileaflet, and appears structurally normal. No aortic stenosis or regurgitati on. 5. There is trace mitral regurgitation. 6. Trace tricuspid regurgitation present. 7. There is no pericardial effusion. OPEN HEARTH HELPER: Yumiko Hopkins RDCS
[2021-10-10 10:54] VITALS: BP 173/91
[2021-10-10] MEDS ORDERED: cloNIDine HCL 0.1 MG TAB PO SCH (16:00)
[2021-10-10] MEDS ORDERED: HEPARIN SODIUM,PORCINE/PF 5,000 UNIT/0.5 ML SYRINGE SQ SCH (21:00)
[2021-10-11] MEDS ORDERED: INSULIN DETEMIR (LEVEMIR) 100 UNIT/ML SYR SQ SCH (07:00)
[2021-10-11] MEDS ORDERED: ASPIRIN 325 MG TAB PO SCH (09:00)
[2021-10-11] MEDS ORDERED: ASPIRIN 81 MG PO SCH (09:00)
== END 2021-10-10 12:08 | disposition left against medical advice (07) ==
LOC: EC 23:49 → 6NMEDSUR 10-10 01:09 → UNDODISOB 10-10 07:43
PROVIDERS: ADMIT Hospitalist; ATTEND Hospitalist
DX: R07.89 Other chest pain (principal); I16.0 Hypertensive urgency; I11.9 Hypertensive heart disease without heart failure; E11.42 Type 2 diabetes mellitus with diabetic polyneuropathy; I25.10 Atherosclerotic heart disease of native coronary artery without angina pectoris; R61 Generalized hyperhidrosis; I25.2 Old myocardial infarction; H91.90 Unspecified hearing loss, unspecified ear; K21.9 Gastro-esophageal reflux disease without esophagitis; F17.210 Nicotine dependence, cigarettes, uncomplicated; R10.9 Unspecified abdominal pain; E78.5 Hyperlipidemia, unspecified; J44.9 Chronic obstructive pulmonary disease, unspecified; G91.9 Hydrocephalus, unspecified; K58.9 Irritable bowel syndrome, unspecified; G43.909 Migraine, unspecified, not intractable, without status migrainosus; M54.2 Cervicalgia; K44.9 Diaphragmatic hernia without obstruction or gangrene; F32.9 Major depressive disorder, single episode, unspecified; F41.9 Anxiety disorder, unspecified; Z53.29 Procedure and treatment not carried out because of patient's decision for other reasons; Z20.822 Contact with and (suspected) exposure to COVID-19; Z79.4 Long term (current) use of insulin; Z79.82 Long term (current) use of aspirin; Z79.02 Long term (current) use of antithrombotics/antiplatelets; Z79.899 Other long term (current) drug therapy; Z88.6 Allergy status to analgesic agent; Z88.5 Allergy status to narcotic agent; Z88.8 Allergy status to other drugs, medicaments and biological substances; Z91.048 Other nonmedicinal substance allergy status; Z87.828 Personal history of other (healed) physical injury and trauma; Z71.6 Tobacco abuse counseling; Z86.73 Personal history of transient ischemic attack (TIA), and cerebral infarction without residual deficits; Z98.2 Presence of cerebrospinal fluid drainage device; Z87.442 Personal history of urinary calculi; Z95.5 Presence of coronary angioplasty implant and graft; Z98.1 Arthrodesis status; Z98.890 Other specified postprocedural states; Z89.112 Acquired absence of left hand; Z80.51 Family history of malignant neoplasm of kidney; Z80.0 Family history of malignant neoplasm of digestive organs
CPT/HCPCS: 99291 ×3; 96375 ×2; 96376; 96361; 96374; 36415; 93005 ×2; 93306; 83880; 80053; 83690; 83735; 84484; 85025; 85610; 85730; 87635; 71046; G0378; J2270; J0360

== ENCOUNTER 2021-10-11 09:15 | Emergency (ER) | payer BC, MEDICARE ==
[2021-10-11 09:23] VITALS: RESP 18
[2021-10-11] MEDS ORDERED: SODIUM CHLORIDE 0.9% 1,000 ML IV STA (09:25)
[2021-10-11] MEDS ORDERED: diphenhydrAMINE 50 MG/ML 1 ML VIAL IVP STA (09:47)
[2021-10-11] MEDS ORDERED: FAMOTIDINE 20 MG/2 ML VIAL IV STA (09:47)
[2021-10-11] MEDS ORDERED: MORPHINE SULFATE 4 MG/ML SYRINGE IVP STA (09:47)
[2021-10-11] MEDS ORDERED: METOCLOPRAMIDE 5 MG/ML 2 ML VIAL IVP STA (09:49)
[2021-10-11 10:45] LABS: Glucose,Whole Blood 116 mg/dL (75-99)
--- NOTE | 2021-10-11 11:59 | CT ---
EXAMINATION TYPE: CT abdomen pelvis w con DATE OF EXAM: 10/11/2021 COMPARISON: CT dated 06/05/2020 HISTORY: Abdominal pain with nausea and vomiting. CT DLP: 1400.1 mGycm Automated exposure control for dose reduction was used. TECHNIQUE: Helical acquisition of images was performed from the lung bases through the pelvis. CONTRAST: Performed without Oral Contrast and with IV Contrast, patient injected with 100 mL of Isovue 300. FINDINGS: No definite hepatic focal lesion. No radiodense gallbladder calculi. Unremarkable spleen and adrenals . Slightly prominent pancreatic duct measuring up to 4 mm, stable. Unremarkable pancreas otherwise. M ultiple variable sized bilateral renal cysts measuring up to 6.3 cm without suspicious feature. No hy droureter or hydronephrosis. Unremarkable urinary bladder. Slightly prominent prostate, please correl ate with PSA level. Scattered arterial atherosclerotic calcifications with infrarenal abdominal aortic ectasia measuring up to 2.7 cm. Moderate stenosis of the origin of the right common iliac artery yet patent distally. U nremarkable nondistended stomach, duodenum and small bowel. Fecal loading of the rectum and segments of the colon. Unremarkable colonic anastomosis in the pelvis. Normal appendix. RECEIVING SUPERVISOR shunt is seen along the anterior chest and abdominal wall entering the right side of the abdominal cavity in the right l ower quadrant. Bilateral fat-containing inguinal hernias. No suspicious lymphadenopathy or sizable ascites. Focal sk in thickening and underlying subcutaneous fat stranding and soft tissue thickening extending for abou t 7 x 6.7 cm, and seen slightly above the level of the umbilicus in the left side of the anterior abd ominal wall, please correlate clinically for underlying infection at that location. These changes are not reaching the anterior abdominal wall muscles. Unremarkable lung bases. Bilateral L5-S1 and L4-5 facet osteoarthropathy. IMPRESSION: Suspected acute inflammatory/infectious process in the left side of the anterior abdominal wall above the level of umbilicus as described above, underlying infection or other infiltrative processes at t hat location can't be excluded, please correlate clinically. No soft tissue gas or marginally enhanci ng collection at that location to suggest abscess formation. Fecal loading of the colon suggestive of constipation. Other incidental findings as described above.
[2021-10-11 12:16] LABS: Basophils # (A) 0.2 k/uL (0-0.2); Basophils % (A) 1 %; Eosinophils # (A) 0.2 k/uL (0-0.7); Eosinophils % (A) 2 %; HCT 52.2 % (39.0-53.0); HGB 17.6 gm/dL (13.0-17.5); Lymphocytes # (A) 1.9 k/uL (1.0-4.8); Lymphocytes % (A) 16 %; MCH 32.4 pg (25.0-35.0); MCHC 33.8 g/dL (31.0-37.0); MCV 95.9 fL (80.0-100.0); Monocytes # (A) 0.7 k/uL (0-1.0); Monocytes % (A) 6 %; Neutrophils # (A) 8.3 k/uL (1.3-7.7); Neutrophils % (A) 73 %; Platelet Count 227 k/uL (150-450); RBC 5.44 m/uL (4.30-5.90); RDW 13.1 % (11.5-15.5); WBC 11.5 k/uL (3.8-10.6)
[2021-10-11 12:19] LABS: Appearance,Urine Clear (Clear); Bilirubin,Urine Negative (Negative); Blood,Urine Small (Negative); Color,Urine Yellow; Glucose,Urine (UA) 4+ (Negative); Ketones,Urine Trace (Negative); Leukocyte Esterase,Urine Negative (Negative); Mucus,Urine Rare /hpf; Nitrite,Urine Negative (Negative); Protein,Urine 2+ (Negative); RBC,Urine 2 /hpf (0-5); Specific Gravity,Urine 1.026 (1.001-1.035); Squamous Epithelial Cell,Urine <1 /hpf (0-4); Urobilinogen,Urine <2.0 mg/dL (<2.0); WBC,Urine <1 /hpf (0-5)
[2021-10-11 12:29] LABS: INR 1.1 (<1.2); Partial Thromboplastin Time 25.5 sec (22.0-30.0); Prothrombin Time 11.7 sec (9.0-12.0)
[2021-10-11 12:31] LABS: ALT 21 U/L (4-49); AST 20 U/L (17-59); African American GFR (CKD) >90 (>60 ml/min/1.73 sqM); Albumin 3.9 g/dL (3.5-5.0); Alkaline Phosphatase 101 U/L (38-126); Amylase 107 U/L (30-110); Anion Gap 8 mmol/L; Blood Urea Nitrogen 19 mg/dL (9-20); Calcium 9.1 mg/dL (8.4-10.2); Carbon Dioxide 19 mmol/L (22-30); Chloride 109 mmol/L (98-107); Glucose 90 mg/dL (74-99); Lipase 399 U/L (23-300); Non-African American GFR(CKD) 83 (>60 ml/min/1.73 sqM); Potassium 4.2 mmol/L (3.5-5.1); Sodium 136 mmol/L (137-145); Total Bilirubin 1.4 mg/dL (0.2-1.3); Total Protein 6.6 g/dL (6.3-8.2)
--- NOTE | 2021-10-11 14:09 | XR ---
EXAMINATION TYPE: XR chest 1V portable DATE OF EXAM: 10/11/2021 COMPARISON: 10/10/2021 INDICATION: Abdominal pain TECHNIQUE: Single frontal view of the chest is obtained. FINDINGS: The heart size is normal. The pulmonary vasculature is normal. The lungs are clear. Catheter transverses the right thorax. IMPRESSION: 1. No acute pulmonary process.
--- NOTE | 2021-10-11 14:19 | ED ---
General Adult HPI - General Chief complaint: Nausea/Vomiting/Diarrhea Stated complaint: vomiting-revisit Time Seen by Provider: 10/11/21 09:25 Source: patient, family, RN notes reviewed, old records reviewed Mode of arrival: wheelchair Limitations: no limitations - History of Present Illness Initial comments: Patient is a 66-year-old male who presents emergency department after leaving AMA yesterday. Patient was originally admitted for chest pain and monitoring of the troponins and EKG. He left yesterday morning after he was feeling better. He states that this morning he began having nausea and vomiting. Endorses epigastric abdominal discomfort. Scrubbed emesis is nonbilious and nonbloody. Patient was found to have an elevated lipase on his previous visit, however states no history of pancreatitis. Denies any diarrhea, fevers, chills, cough. His no other acute complaints at this time. Presents over concern for his nausea and vomiting and for reevaluation.Patient was evaluated when he was placed in a room. No history of alcohol use, drug use. - Related Data Home Medications Medication Instructions Recorded Confirmed lisinopriL [Zestril] 20 mg PO BID 11/24/15 10/11/21 Insulin Aspart [NovoLOG Flexpen] 12 units SQ AC-LUNCH 12/15/18 10/11/21 Insulin Aspart [NovoLOG Flexpen] 22 units SQ AC-BID@0900,1800 12/15/18 10/11/21 Aspirin EC [Ecotrin Low Dose] 81 mg PO DAILY 02/15/20 10/11/21 Nitroglycerin Sl Tabs [Nitrostat] 0.4 mg SL Q5M PRN 08/18/20 10/11/21 Insulin Detemir [Levemir Flextouch] 55 units SQ DAILY 01/09/21 10/11/21 cloNIDine HCL [Catapres] 0.2 mg PO TID 10/10/21 10/11/21 Previous Rx's Medication Instructions Recorded Clopidogrel [Plavix] 75 mg PO DAILY #30 tab 08/20/20 Metoprolol Tartrate [Lopressor] 100 mg PO BID #60 tab 08/20/20 Famotidine [Pepcid AC] 10 mg PO BID 7 Days #14 tablet 10/11/21 Mag Hydrox/Al Hydrox/Simeth 30 ml PO BID PRN 7 Days #500 ml 10/11/21 [Maalox] Allergies Allergy/AdvReac Type Severity Reaction Status Date / Time blue dye Allergy Severe Rash/Hives Verified 10/11/21 10:38 codeine Allergy Itching Verified 10/11/21 10:38 naproxen sodium [From Aleve] Allergy Rash/Hives Verified 10/11/21 10:38 ondansetron [From Zofran] Allergy Rash/Hives Verified 10/11/21 10:38 gabapentin AdvReac Abdominal Verified 10/11/21 10:38 Pain naloxegol [From Movantik] AdvReac Nausea & Verified 10/11/21 10:38 Vomiting Review of Systems ROS Statement: Those systems with pertinent positive or pertinent negative responses have been documented in the HPI. Review of Systems: CONST: Denies fever EYES: Denies blurry vision ENT: Denies nasal congestion C/V: Denies Chest pain RESP: Denies shortness of breath GI: Endorses abdominal pain : Denies dysuria SKIN: Denies rash. MSK: Denies joint pain. NEURO: Denies headache ROS Other: All systems not noted in ROS Statement are negative. 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 History of Any Multi-Drug Resistant Organisms: None Reported Past Surgical History: Back Surgery, Bowel Resection, Heart Catheterization With Stent, Orthopedic Surgery Additional Past Surgical History / Comment(s): 02/18/20 Robot assisted laparoscopy/extensive lysis of adhesions, [employer] INSURANCE CODING SPECIALIST shunt, 2019 R elbow tendon surgery, L knee arthroscopy, L hand amp d/t industrial accident, cervical fusion, bowel resection d/t diverticulitis, EGD, colonoscopy, hemorrhoidectomy, Heart cath with 2 stents on 08/26/2020 Past Anesthesia/Blood Transfusion Reactions: No Reported Reaction Past Psychological History: Anxiety, Depression Smoking Status: Current every day smoker Past Alcohol Use History: None Reported Past Drug Use History: Marijuana - Past Family History Mother Family Medical History: Cancer Additional Family Medical History / Comment(s): kidney Father Family Medical History: Cancer Additional Family Medical History / Comment(s): pancreatic General Exam - General Exam Comments Initial Comments: General: Appears in no acute distress. HEAD: Normal with no signs of head trauma. EYES: PERRLA, EOMI, conjunctiva normal, no discharge. ENT: Hearing grossly intact, normal oropharynx. Moist mucous membranes RESPIRATORY: Clear breath sounds bilaterally. No wheezes, rales, or rhonchi. C/V: Regular rate and rhythm. S1 and S2 auscultated, no edema, peripheral pulses 2+ and intact throughout ABD: Abdomen soft, nondistended. He is minimally tender to palpation epigastric region. No rebound tenderness. No guarding. No peritoneal signs. EXT: Normal range of motion, no obvious deformity SKIN: No rashes or lesions observed on exposed skin. NEURO: Alert and oriented 4. Limitations: no limitations Course Vital Signs 10/11/21 10/11/21 09:19 14:33 Temperature 97.9 F 98.0 F Pulse Rate 74 75 Respiratory 18 18 Rate Blood Pressure 189/113 190/94 O2 Sat by Pulse 98 97 Oximetry Medical Decision Making - Medical Decision Making Based on patient's presentation and physical exam, I'm concerned for acute abdominal pathology for his current symptoms. Cannot rule out cardiac etiology particularly with his recent admission for troponin trending which were all negative. Therefore we will obtain a screening EKG and troponin addition to abdominal labs. We also obtain a CT and pelvis. Patient was in agreement this plan. He was symptomatically [place] with IV fluids, IV morphine, Reglan, Pepcid, Benadryl. Patient's EKG showed no signs of acute ischemia. Troponin is negative. Lactic acid is within normal limits. No signs of DKA. Not hyperglycemic.Patient's lipase, which was over 700 the other day is improved to 399 today. Urinalysis was remarkable for 4+ glucose. Patient has a mild leukocytosis of 11.5 which is likely reactive. The remainder the patient's laboratory studies are unremarkable. Chest x-ray revealed no acute cardiopulmonary process. CT of the abdomen and pelvis revealed no acute intra-abdominal process. There was concern for possible abdominal wall inflammatory process the left upper quadrant. No other findings. On reevaluation, I did reevaluate the patient's abdomen. He has no pain at this time. There are no signs of abdominal wall infection left upper quadrant. He is feeling improved and would like to be discharged home. He is tolerating oral intake. I believe this is appropriate. I'll provide him with prescriptions and recommended they follow up with his PCP in the next few days. He was in agreement with this plan. I will provide the patient with a prescription for Maalox, famotidine. I instructed the patient to follow up with their PCP in the next 3 days. I provided contact information for follow up with gastroenterology. I explained that the patient should return to the emergency department if they experience any worsening symptoms. Strict return precautions were discussed with the patient. The patient expressed understanding of these instructions. I answered all questions that the patient had. The patient was discharged home in good cond ition with their prescriptions and follow up information. - Lab Data Result diagrams: 10/11/21 11:46 10/11/21 11:46 Lab Results 10/11/21 10/11/21 10/11/21 Range/Units 10:43 11:46 11:46 WBC 11.5 H (3.8-10.6) k/uL RBC 5.44 (4.30-5.90) m/uL Hgb 17.6 H (13.0-17.5) gm/dL Hct 52.2 (39.0-53.0) % MCV 95.9 (80.0-100.0) fL MCH 32.4 (25.0-35.0) pg MCHC 33.8 (31.0-37.0) g/dL RDW 13.1 (11.5-15.5) % Plt Count 227 (150-450) k/uL MPV 7.0 Neutrophils % 73 % Lymphocytes % 16 % Monocytes % 6 % Eosinophils % 2 % Basophils % 1 % Neutrophils # 8.3 H (1.3-7.7) k/uL Lymphocytes # 1.9 (1.0-4.8) k/uL Monocytes # 0.7 (0-1.0) k/uL Eosinophils # 0.2 (0-0.7) k/uL Basophils # 0.2 (0-0.2) k/uL PT 11.7 (9.0-12.0) sec INR 1.1 (<1.2) APTT 25.5 (22.0-30.0) sec Sodium (137-145) mmol/L Potassium (3.5-5.1) mmol/L Chloride (98-107) mmol/L Carbon Dioxide (22-30) mmol/L Anion Gap mmol/L BUN (9-20) mg/dL Creatinine (0.66-1.25) mg/dL Est GFR (CKD-EPI)AfAm (>60 ml/min/1.73 sqM) Est GFR (CKD-EPI)NonAf (>60 ml/min/1.73 sqM) Glucose (74-99) mg/dL POC Glucose (mg/dL) 116 H (75-99) mg/dL POC Glu Azure Principal Solution Specialist ID [place] Plasma Lactic Acid Jose Luis (0.7-2.0) mmol/L Calcium (8.4-10.2) mg/dL Total Bilirubin (0.2-1.3) mg/dL AST (17-59) U/L ALT (4-49) U/L Alkaline Phosphatase (38-126) U/L Troponin I (0.000-0.034) ng/mL Total Protein (6.3-8.2) g/dL Albumin (3.5-5.0) g/dL Amylase (30-110) U/L Lipase (23-300) U/L Urine Color Urine Appearance (Clear) Urine pH (5.0-8.0) Ur Specific [place] (1.001-1.035) Urine Protein (Negative) Urine Glucose (UA) (Negative) Urine Ketones (Negative) Urine Blood (Negative) Urine Nitrite (Negative) Urine Bilirubin (Negative) Urine Urobilinogen (<2.0) mg/dL Ur Leukocyte Esterase (Negative) Urine RBC (0-5) /hpf Urine WBC (0-5) /hpf Ur Squamous Epith Cells (0-4) /hpf Urine Mucus (None) /hpf 10/11/21 10/11/21 10/11/21 Range/Units 11:46 11:46 11:46 WBC (3.8-10.6) k/uL RBC (4.30-5.90) m/uL Hgb (13.0-17.5) gm/dL Hct (39.0-53.0) % MCV (80.0-100.0) fL MCH (25.0-35.0) pg MCHC (31.0-37.0) g/dL RDW (11.5-15.5) % Plt Count (150-450) k/uL MPV Neutrophils % % Lymphocytes % % Monocytes % % Eosinophils % % Basophils % % Neutrophils # (1.3-7.7) k/uL Lymphocytes # (1.0-4.8) k/uL Monocytes # (0-1.0) k/uL Eosinophils # (0-0.7) k/uL Basophils # (0-0.2) k/uL PT (9.0-12.0) sec INR (<1.2) APTT (22.0-30.0) sec Sodium 136 L (137-145) mmol/L Potassium 4.2 (3.5-5.1) mmol/L Chloride 109 H (98-107) mmol/L Carbon Dioxide 19 L (22-30) mmol/L Anion Gap 8 mmol/L BUN 19 (9-20) mg/dL Creatinine 0.95 (0.66-1.25) mg/dL Est GFR (CKD-EPI)AfAm >90 (>60 ml/min/1.73 sqM) Est GFR (CKD-EPI)NonAf 83 (>60 ml/min/1.73 sqM) Glucose 90 (74-99) mg/dL POC Glucose (mg/dL) (75-99) mg/dL POC Glu Azure Principal Solution Specialist ID Plasma Lactic Acid Jose Luis 1.0 (0.7-2.0) mmol/L Calcium 9.1 (8.4-10.2) mg/dL Total Bilirubin 1.4 H (0.2-1.3) mg/dL AST 20 (17-59) U/L ALT 21 (4-49) U/L Alkaline Phosphatase 101 (38-126) U/L Troponin I (0.000-0.034) ng/mL Total Protein 6.6 (6.3-8.2) g/dL Albumin 3.9 (3.5-5.0) g/dL Amylase 107 (30-110) U/L Lipase 399 H (23-300) U/L Urine Color Yellow Urine Appearance Clear (Clear) Urine pH 6.0 (5.0-8.0) Ur Specific [place] 1.026 (1.001-1.035) Urine Protein 2+ H (Negative) Urine Glucose (UA) 4+ H (Negative) Urine Ketones Trace H (Negative) Urine Blood Small H (Negative) Urine Nitrite Negative (Negative) Urine Bilirubin Negative (Negative) Urine Urobilinogen <2.0 (<2.0) mg/dL Ur Leukocyte Esterase Negative (Negative) Urine RBC 2 (0-5) /hpf Urine WBC <1 (0-5) /hpf Ur Squamous Epith Cells <1 (0-4) /hpf Urine Mucus Rare H (None) /hpf 10/11/21 Range/Units 11:46 WBC (3.8-10.6) k/uL RBC (4.30-5.90) m/uL Hgb (13.0-17.5) gm/dL Hct (39.0-53.0) % MCV (80.0-100.0) fL MCH (25.0-35.0) pg MCHC (31.0-37.0) g/dL RDW (11.5-15.5) % Plt Count (150-450) k/uL MPV Neutrophils % % Lymphocytes % % Monocytes % % Eosinophils % % Basophils % % Neutrophils # (1.3-7.7) k/uL Lymphocytes # (1.0-4.8) k/uL Monocytes # (0-1.0) k/uL Eosinophils # (0-0.7) k/uL Basophils # (0-0.2) k/uL PT (9.0-12.0) sec INR (<1.2) APTT (22.0-30.0) sec Sodium (137-145) mmol/L Potassium (3.5-5.1) mmol/L Chloride (98-107) mmol/L Carbon Dioxide (22-30) mmol/L Anion Gap mmol/L BUN (9-20) mg/dL Creatinine (0.66-1.25) mg/dL Est GFR (CKD-EPI)AfAm (>60 ml/min/1.73 sqM) Est GFR (CKD-EPI)NonAf (>60 ml/min/1.73 sqM) Glucose (74-99) mg/dL POC Glucose (mg/dL) (75-99) mg/dL POC Glu Azure Principal Solution Specialist ID Plasma Lactic Acid Jose Luis (0.7-2.0) mmol/L Calcium (8.4-10.2) mg/dL Total Bilirubin (0.2-1.3) mg/dL AST (17-59) U/L ALT (4-49) U/L Alkaline Phosphatase (38-126) U/L Troponin I 0.014 (0.000-0.034) ng/mL Total Protein (6.3-8.2) g/dL Albumin (3.5-5.0) g/dL Amylase (30-110) U/L Lipase (23-300) U/L Urine Color Urine Appearance (Clear) Urine pH (5.0-8.0) Ur Specific [place] (1.001-1.035) Urine Protein (Negative) Urine Glucose (UA) (Negative) Urine Ketones (Negative) Urine Blood (Negative) Urine Nitrite (Negative) Urine Bilirubin (Negative) Urine Urobilinogen (<2.0) mg/dL Ur Leukocyte Esterase (Negative) Urine RBC (0-5) /hpf Urine WBC (0-5) /hpf Ur Squamous Epith Cells (0-4) /hpf Urine Mucus (None) /hpf - EKG Data -: EKG Interpreted by Me EKG Comments: 12-lead Electrocardiogram Interpretation Note EKG was reviewed and interpreted by myself. 12-lead ECG performed at 1026 is interpreted by me as revealing normal sinus rhythm at a rate of 70 beats per minute. [place] is normal. [place] interval is 167 ms, QRS duration is 90 ms, QTc is 407 ms.. There are chronically inverted T waves in the lateral precordial leads as well as III, aVF that are seen on prior EKGs no acute ST segment or T-wave abnormalities.. R wave progression across the precordium was satisfactory. By my interpretation this EKG is non-diagnostic for acute ischemia. Disposition Clinical Impression: Nausea and vomiting, Abdominal pain of unknown cause Disposition: HOME SELF-CARE Condition: Good Instructions (If sedation given, give patient instructions): Acute Nausea and Vomiting (ED) Prescriptions: Mag Hydrox/Al Hydrox/Simeth [Maalox] 30 ml PO BID PRN 7 Days #500 ml PRN Reason: Dyspepsia Famotidine [Pepcid AC] 10 mg PO BID 7 Days #14 tablet Is patient prescribed a controlled substance at d/c from ED?: No Referrals: Moises Gutierrez DO [Primary Care Provider] - 1-2 days Yamila Guillen MD [STAFF PHYSICIAN] - 1-2 days
[2021-10-11 14:42] VITALS: BP 190/94; PULSE 75; TEMP 98
== END 2021-10-11 14:35 | disposition home or self-care (01) ==
LOC: EC 09:15
DX: R11.2 Nausea with vomiting, unspecified (principal); R10.13 Epigastric pain; Z79.4 Long term (current) use of insulin; Z79.82 Long term (current) use of aspirin; Z79.01 Long term (current) use of anticoagulants; Z88.5 Allergy status to narcotic agent; J44.9 Chronic obstructive pulmonary disease, unspecified; Z86.73 Personal history of transient ischemic attack (TIA), and cerebral infarction without residual deficits; E11.9 Type 2 diabetes mellitus without complications; K21.9 Gastro-esophageal reflux disease without esophagitis; E78.5 Hyperlipidemia, unspecified; I10 Essential (primary) hypertension; I25.2 Old myocardial infarction; F41.9 Anxiety disorder, unspecified; F32.A Depression, unspecified; F17.200 Nicotine dependence, unspecified, uncomplicated; F12.90 Cannabis use, unspecified, uncomplicated
CPT/HCPCS: 99284; 96374; 96375 ×3; 96361; 36415; 80053; 82150; 83605; 83690; 84484; 85025; 85610; 85730; 81001; 71045; 74177; J2270; J1200; J2765; Q9967; 93005

== ENCOUNTER 2021-10-27 00:26 | Emergency (ER) | payer BC, MEDICARE ==
[2021-10-27 00:33] VITALS: TEMP 97.8
[2021-10-27] MEDS ORDERED: LABETALOL 5 MG/ML VIAL MDV IVP STA ×2 (00:55→02:46)
[2021-10-27 01:27] LABS: Basophils # (A) 0.1 k/uL (0-0.2); Basophils % (A) 1 %; Eosinophils # (A) 0.3 k/uL (0-0.7); Eosinophils % (A) 3 %; HCT 50.3 % (39.0-53.0); HGB 16.3 gm/dL (13.0-17.5); Lymphocytes # (A) 2.2 k/uL (1.0-4.8); Lymphocytes % (A) 20 %; MCH 31.6 pg (25.0-35.0); MCHC 32.4 g/dL (31.0-37.0); MCV 97.6 fL (80.0-100.0); Mean Platelet Volume 7.3; Monocytes # (A) 0.7 k/uL (0-1.0); Monocytes % (A) 6 %; Neutrophils # (A) 7.7 k/uL (1.3-7.7); Neutrophils % (A) 68 %; Platelet Count 220 k/uL (150-450); RBC 5.15 m/uL (4.30-5.90); RDW 13.9 % (11.5-15.5); WBC 11.3 k/uL (3.8-10.6)
--- NOTE | 2021-10-27 01:27 | XR ---
EXAMINATION TYPE: XR chest 2V DATE OF EXAM: 10/27/2021 COMPARISON: 10/11/2021 HISTORY: Chest pain TECHNIQUE: FINDINGS: There is no heart failure nor confluent pneumonic infiltrate. Costophrenic angles are clear . Heart size is normal. There are no hilar masses. There are chest leads. There is small linear densi ty left lung base. IMPRESSION: Minimal subsegmental atelectasis left lung base appears new compared to old exam. Normal heart.
[2021-10-27 01:39] LABS: ALT 20 U/L (4-49); AST 17 U/L (17-59); African American GFR (CKD) >90 (>60 ml/min/1.73 sqM); Albumin 3.6 g/dL (3.5-5.0); Alkaline Phosphatase 98 U/L (38-126); Amylase 129 U/L (30-110); Anion Gap 8 mmol/L; Blood Urea Nitrogen 18 mg/dL (9-20); Calcium 8.6 mg/dL (8.4-10.2); Carbon Dioxide 20 mmol/L (22-30); Chloride 107 mmol/L (98-107); Glucose 211 mg/dL (74-99); Lipase 565 U/L (23-300); Magnesium 1.8 mg/dL (1.6-2.3); Non-African American GFR(CKD) 80 (>60 ml/min/1.73 sqM); Potassium 4.3 mmol/L (3.5-5.1); Sodium 135 mmol/L (137-145); Total Bilirubin 0.8 mg/dL (0.2-1.3); Total Protein 6.2 g/dL (6.3-8.2)
[2021-10-27 01:43] LABS: Partial Thromboplastin Time 27.9 sec (22.0-30.0); Prothrombin Time 11.2 sec (9.0-12.0)
--- NOTE | 2021-10-27 01:51 | ED ---
Nausea/Vomiting/Diarrhea HPI - General Source: patient Mode of arrival: ambulatory Limitations: no limitations - History of Present Illness MD complaint: nausea, vomiting Onset/Timin -: hour(s) Description of Vomiting: food contents Quality: cramping Consistency: intermittent Improves with: none Worsens with: none Associated Symptoms: nausea/vomiting <Arnulfo Higuera - Last Filed: 10/27/21 05:13> <Basil Alvarado - Last Filed: 10/27/21 09:06> - General Chief complaint: Nausea/Vomiting/Diarrhea Stated complaint: Vomiting Time Seen by Provider: 10/27/21 00:45 - History of Present Illness Initial comments: This patient is 66-year-old man who presents to be evaluated for nausea and vomiting. The patient states that it had come on while he was sleeping yesterday around 4 AM. Patient states that he was up most of the night then did get a little rest. Tonight he went to sleep again and then was awakened by nausea and vomiting. He has not noted any hematemesis or coffee-ground emesis. This evening he did have a little bit of epigastric and substernal discomfort but was not having any chest pain with the episode yesterday. (Arnulfo Higuera) - Related Data Home Medications Medication Instructions Recorded Confirmed lisinopriL [Zestril] 20 mg PO BID 11/24/15 10/11/21 Insulin Aspart [NovoLOG Flexpen] 12 units SQ AC-LUNCH 12/15/18 10/11/21 Insulin Aspart [NovoLOG Flexpen] 22 units SQ AC-BID@0900,1800 12/15/18 10/11/21 Aspirin EC [Ecotrin Low Dose] 81 mg PO DAILY 02/15/20 10/11/21 Nitroglycerin Sl Tabs [Nitrostat] 0.4 mg SL Q5M PRN 08/18/20 10/11/21 Insulin Detemir [Levemir Flextouch] 55 units SQ DAILY 01/09/21 10/11/21 cloNIDine HCL [Catapres] 0.2 mg PO TID 10/10/21 10/11/21 Previous Rx's Medication Instructions Recorded Clopidogrel [Plavix] 75 mg PO DAILY #30 tab 08/20/20 Metoprolol Tartrate [Lopressor] 100 mg PO BID #60 tab 01/02/21 Famotidine [Pepcid AC] 10 mg PO BID 7 Days #14 tablet 10/11/21 Mag Hydrox/Al Hydrox/Simeth 30 ml PO BID PRN 7 Days #500 ml 10/11/21 [Maalox] Allergies Allergy/AdvReac Type Severity Reaction Status Date / Time blue dye Allergy Severe Rash/Hives Verified 10/27/21 00:33 codeine Allergy Itching Verified 10/27/21 00:33 naproxen sodium [From Aleve] Allergy Rash/Hives Verified 10/27/21 00:33 ondansetron [From Zofran] Allergy Rash/Hives Verified 10/27/21 00:33 gabapentin AdvReac Abdominal Verified 10/27/21 00:33 Pain naloxegol [From Movantik] AdvReac Nausea & Verified 10/27/21 00:33 Vomiting Review of Systems ROS Other: All systems not noted in ROS Statement are negative. Constitutional: Denies: fever, chills, weakness Respiratory: Denies: cough, dyspnea, wheezes, hemoptysis Cardiovascular: Denies: chest pain, palpitations, orthopnea, edema, syncope Gastrointestinal: Reports: nausea, vomiting. Denies: diarrhea, constipation, hematemesis, melena, hematochezia Genitourinary: Denies: dysuria, hematuria Musculoskeletal: Denies: back pain Skin: Denies: rash Neurological: Denies: headache, weakness, numbness <Arnulfo Higuera - Last Filed: 10/27/21 05:13> ROS Other: All systems not noted in ROS Statement are negative. <Basil Alvarado - Last Filed: 10/27/21 09:06> ROS Statement: Those systems with pertinent positive or pertinent negative responses have been documented in the HPI. 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 History of Any Multi-Drug Resistant Organisms: None Reported Past Surgical History: Back Surgery, Bowel Resection, Heart Catheterization With Stent, Orthopedic Surgery Additional Past Surgical History / Comment(s): 02/18/20 Robot assisted laparoscopy/extensive lysis of adhesions, STANDARD MACHINE STITCHER shunt, 2019 R elbow tendon surgery, L knee arthroscopy, L hand amp d/t industrial accident, cervical fusion, bowel resection d/t diverticulitis, EGD, colonoscopy, hemorrhoidectomy, Heart cath with 2 stents on 08/26/2020 Past Anesthesia/Blood Transfusion Reactions: No Reported Reaction Past Psychological History: Anxiety, Depression Smoking Status: Current every day smoker Past Alcohol Use History: None Reported Past Drug Use History: Marijuana - Past Family History Mother Family Medical History: Cancer Additional Family Medical History / Comment(s): kidney Father Family Medical History: Cancer Additional Family Medical History / Comment(s): pancreatic <DavidaArnulfo - Last Filed: 10/27/21 05:13> General Exam Limitations: no limitations General appearance: alert, in no apparent distress Head exam: Present: atraumatic, normocephalic Eye exam: Present: normal appearance. Absent: scleral icterus, conjunctival injection Neck exam: Present: normal inspection Respiratory exam: Present: normal lung sounds bilaterally. Absent: respiratory distress, wheezes, rales, rhonchi, stridor Cardiovascular Exam: Present: regular rate, normal rhythm, normal heart sounds. Absent: systolic murmur, diastolic murmur, rubs, gallop GI/Abdominal exam: Present: soft. Absent: distended, tenderness, guarding Extremities exam: Present: normal inspection, normal capillary refill. Absent: pedal edema, calf tenderness Back exam: Present: normal inspection Neurological exam: Present: alert Skin exam: Present: warm, dry, intact, normal color. Absent: rash <DavidaArnulfo - Last Filed: 10/27/21 05:13> Course Vital Signs 10/27/21 10/27/21 10/27/21 00:27 01:07 01:13 Temperature 97.8 F Pulse Rate 79 77 83 Respiratory 20 18 18 Rate Blood Pressure 216/96 180/90 159/82 O2 Sat by Pulse 100 99 99 Oximetry 10/27/21 10/27/21 10/27/21 01:30 02:00 02:10 Temperature Pulse Rate 89 84 85 Respiratory 18 18 18 Rate Blood Pressure 176/99 194/115 186/98 O2 Sat by Pulse 100 99 98 Oximetry 10/27/21 10/27/21 10/27/21 03:00 04:00 04:15 Temperature Pulse Rate 83 82 81 Respiratory 16 16 16 Rate Blood Pressure 174/92 190/104 173/76 O2 Sat by Pulse 98 98 97 Oximetry 10/27/21 10/27/21 10/27/21 04:30 05:00 06:00 Temperature Pulse Rate 79 82 Respiratory 16 20 18 Rate Blood Pressure 173/76 176/87 173/92 O2 Sat by Pulse 97 97 Oximetry 10/27/21 10/27/21 10/27/21 06:30 07:00 07:32 Temperature Pulse Rate 82 83 87 Respiratory 19 14 18 Rate Blood Pressure 169/86 165/100 200/121 O2 Sat by Pulse 98 98 98 Oximetry Medical Decision Making - Lab Data Result diagrams: 10/27/21 01:11 10/27/21 01:11 - EKG Data -: EKG Interpreted by Me EKG shows normal: sinus rhythm (With occasional supraventricular premature complexes.), intervals (Normal) Interpretation: LVH <Arnulfo Higuera - Last Filed: 10/27/21 05:13> - Lab Data Result diagrams: 10/27/21 01:11 10/27/21 01:11 <Basil Alvarado - Last Filed: 10/27/21 09:06> - Medical Decision Making Patient was signed out to me pending results of right upper quadrant ultrasound. He was being worked up for her pancreatitis versus intra-abdominal process for nausea, vomiting, abdominal pain that has been present for the last week, he does have a chronic component to it. Laboratory studies were remarkable for mildly elevated amylase and lipase of 129 and 565. Patient's pain is under control. He did have a potentially, however has been not taking his home metoprolol as he believes that this is the cause of his abdominal complaints. Has not received an EGD lately. CT imaging did not reveal any acute intra- abdominal process. Right upper quadrant ultrasound was completed and revealed a renal cyst on the right kidney, however on otherwise unremarkable. On reevaluation, patient remains feeling improved. We discussed at length the results of his imaging and laboratory studies. He expressed understanding, however was slightly disheartened as he continues to have no clear explanation for his abdominal discomfort. I did recommend follow-up with gastroenterology for EGD, and he was in agreement this plan. States he has Pepcid, Maalox, Tums at home and declines any medications. Was in agreement with going home. Is tolerating oral intake at this time. I instructed the patient to follow up with their PCP in the next 3 days. [I provided contact information for follow up with] gastroenterology. I explained that the patient should return to the emergency department if they experience any worsening symptoms. Strict return precautions were discussed with the patient. The patient expressed understanding of these instructions. I answered all questions that the patient had. The patient was discharged home in. Condition with their prescriptions and follow up information. (Basil Alvarado) - Lab Data Lab Results 10/27/21 10/27/21 10/27/21 Range/Units 01:11 01:11 01:11 WBC 11.3 H (3.8-10.6) k/uL RBC 5.15 (4.30-5.90) m/uL Hgb 16.3 (13.0-17.5) gm/dL Hct 50.3 (39.0-53.0) % MCV 97.6 (80.0-100.0) fL MCH 31.6 (25.0-35.0) pg MCHC 32.4 (31.0-37.0) g/dL RDW 13.9 (11.5-15.5) % Plt Count 220 (150-450) k/uL MPV 7.3 Neutrophils % 68 % Lymphocytes % 20 % Monocytes % 6 % Eosinophils % 3 % Basophils % 1 % Neutrophils # 7.7 (1.3-7.7) k/uL Lymphocytes # 2.2 (1.0-4.8) k/uL Monocytes # 0.7 (0-1.0) k/uL Eosinophils # 0.3 (0-0.7) k/uL Basophils # 0.1 (0-0.2) k/uL PT 11.2 (9.0-12.0) sec INR 1.0 (<1.2) APTT 27.9 (22.0-30.0) sec D-Dimer 0.46 (<0.60) mg/L FEU Sodium 135 L (137-145) mmol/L Potassium 4.3 (3.5-5.1) mmol/L Chloride 107 (98-107) mmol/L Carbon Dioxide 20 L (22-30) mmol/L Anion Gap 8 mmol/L BUN 18 (9-20) mg/dL Creatinine 0.98 (0.66-1.25) mg/dL Est GFR (CKD-EPI)AfAm >90 (>60 ml/min/1.73 sqM) Est GFR (CKD-EPI)NonAf 80 (>60 ml/min/1.73 sqM) Glucose 211 H (74-99) mg/dL Calcium 8.6 (8.4-10.2) mg/dL Magnesium 1.8 (1.6-2.3) mg/dL Total Bilirubin 0.8 (0.2-1.3) mg/dL AST 17 (17-59) U/L ALT 20 (4-49) U/L Alkaline Phosphatase 98 (38-126) U/L Troponin I (0.000-0.034) ng/mL NT-Pro-B Natriuret Pep pg/mL Total Protein 6.2 L (6.3-8.2) g/dL Albumin 3.6 (3.5-5.0) g/dL Amylase 129 H (30-110) U/L Lipase 565 H (23-300) U/L Urine Color Urine Appearance (Clear) Urine pH (5.0-8.0) Ur Specific [place] (1.001-1.035) Urine Protein (Negative) Urine Glucose (UA) (Negative) Urine Ketones (Negative) Urine Blood (Negative) Urine Nitrite (Negative) Urine Bilirubin (Negative) Urine Urobilinogen (<2.0) mg/dL Ur Leukocyte Esterase (Negative) Urine RBC (0-5) /hpf Urine WBC (0-5) /hpf Hyaline Casts (0-2) /lpf Urine Mucus (None) /hpf 10/27/21 10/27/21 10/27/21 Range/Units 01:11 01:11 03:10 WBC (3.8-10.6) k/uL RBC (4.30-5.90) m/uL Hgb (13.0-17.5) gm/dL Hct (39.0-53.0) % MCV (80.0-100.0) fL MCH (25.0-35.0) pg MCHC (31.0-37.0) g/dL RDW (11.5-15.5) % Plt Count (150-450) k/uL MPV Neutrophils % % Lymphocytes % % Monocytes % % Eosinophils % % Basophils % % Neutrophils # (1.3-7.7) k/uL Lymphocytes # (1.0-4.8) k/uL Monocytes # (0-1.0) k/uL Eosinophils # (0-0.7) k/uL Basophils # (0-0.2) k/uL PT (9.0-12.0) sec INR (<1.2) APTT (22.0-30.0) sec D-Dimer (<0.60) mg/L FEU Sodium (137-145) mmol/L Potassium (3.5-5.1) mmol/L Chloride (98-107) mmol/L Carbon Dioxide (22-30) mmol/L Anion Gap mmol/L BUN (9-20) mg/dL Creatinine (0.66-1.25) mg/dL Est GFR (CKD-EPI)AfAm (>60 ml/min/1.73 sqM) Est GFR (CKD-EPI)NonAf (>60 ml/min/1.73 sqM) Glucose (74-99) mg/dL Calcium (8.4-10.2) mg/dL Magnesium (1.6-2.3) mg/dL Total Bilirubin (0.2-1.3) mg/dL AST (17-59) U/L ALT (4-49) U/L Alkaline Phosphatase (38-126) U/L Troponin I <0.012 (0.000-0.034) ng/mL NT-Pro-B Natriuret Pep 410 pg/mL Total Protein (6.3-8.2) g/dL Albumin (3.5-5.0) g/dL Amylase (30-110) U/L Lipase (23-300) U/L Urine Color Yellow Urine Appearance Clear (Clear) Urine pH 6.0 (5.0-8.0) Ur Specific [place] 1.017 (1.001-1.035) Urine Protein 2+ H (Negative) Urine Glucose (UA) 4+ H (Negative) Urine Ketones 1+ H (Negative) Urine Blood Trace H (Negative) Urine Nitrite Negative (Negative) Urine Bilirubin Negative (Negative) Urine Urobilinogen <2.0 (<2.0) mg/dL Ur Leukocyte Esterase Negative (Negative) Urine RBC 3 (0-5) /hpf Urine WBC 1 (0-5) /hpf Hyaline Casts 1 (0-2) /lpf Urine Mucus Rare H (None) /hpf Disposition <Arnulfo Higuera - Last Filed: 10/27/21 05:13> Is patient prescribed a controlled substance at d/c from ED?: No <Basil Alvarado - Last Filed: 10/27/21 09:06> Clinical Impression: Nausea & vomiting, Chronic abdominal pain, Pancreatitis, acute, Asymptomatic hypertension Disposition: HOME SELF-CARE Condition: Good Instructions (If sedation given, give patient instructions): Pancreatitis (ED), Acute Nausea and Vomiting (ED) Referrals: Moises Gutierrez DO [Primary Care Provider] - 1-2 days Yamila Guillen MD [STAFF PHYSICIAN] - 1-2 days
[2021-10-27] MEDS ORDERED: HYDROmorphone 1 MG/ML 1 ML SYRINGE IVP STA (03:12)
[2021-10-27 03:19] LABS: Appearance,Urine Clear (Clear); Bilirubin,Urine Negative (Negative); Blood,Urine Trace (Negative); Color,Urine Yellow; Glucose,Urine (UA) 4+ (Negative); Hyaline Casts,Urine 1 /lpf (0-2); Ketones,Urine 1+ (Negative); Leukocyte Esterase,Urine Negative (Negative); Mucus,Urine Rare /hpf; Nitrite,Urine Negative (Negative); Protein,Urine 2+ (Negative); RBC,Urine 3 /hpf (0-5); Specific Gravity,Urine 1.017 (1.001-1.035); Urobilinogen,Urine <2.0 mg/dL (<2.0); WBC,Urine 1 /hpf (0-5)
--- NOTE | 2021-10-27 05:17 | CT ---
EXAMINATION TYPE: CT abdomen pelvis w con DATE OF EXAM: 10/27/2021 COMPARISON: 10/11/2021 HISTORY: epigastric pain/vomiting. prior on PACS. CT DLP: 1333.3 mGycm Automated exposure control for dose reduction was used. CONTRAST: Performed with IV Contrast, patient injected with 80ml mL of Isovue 300. There is mild subsegmental atelectasis left lung base. Heart size is normal. Liver spleen and stomach pancreas appear normal. Gallbladder appears normal. The bile ducts are not d ilated. There is no adrenal mass. There are right-sided renal cortical cysts that measure up to 5.5 cm. There is no hydronephrosis. There is no evidence of solid renal mass. There is no retroperitoneal adenopat hy. Ureters are not dilated. Bladder distends smoothly. There is no inguinal hernia. There is no free fluid in the pelvis. There is surgery at the rectosigmoid junction. There are some mildly distended fluid-filled small bowel loops. These measure up to 2.5 cm. There is no mesenteric edema. There is no ascites or free air. There is no bowel obstruction. Delayed images show normal renal excretion. There is some subcutaneous edema on the left anterior abdominal wall. This measures up to 1 cm in thi ckness. The lumbar vertebrae have normal alignment. Posterior elements are intact. There is no compression fr acture. Bony pelvis is intact. The hip joints are intact. IMPRESSION: No acute abnormality within the abdomen and pelvis. Mild subsegmental atelectasis left lung base with out change compared to old exam. There is evidence for some edema or cellulitis involving the left side subcutaneous tissues. Unchange d compared to old exam.
[2021-10-27 07:34] VITALS: RESP 18
[2021-10-27] MEDS: LABETALOL SYRINGE 5 MG/ML IVP STA ×2 (08:04→08:07)
--- NOTE | 2021-10-27 08:08 | US ---
EXAMINATION TYPE: US abdomen limited DATE OF EXAM: 10/27/2021 COMPARISON: Same day CT CLINICAL HISTORY: attention RUQ. Pain EXAM MEASUREMENTS: Liver Length: 14.9 cm Gallbladder Wall: 0.3 cm CBD: 0.5 cm Right Kidney: 11.6 x 5.5 x 6.0 cm Pancreas: Head wnl, body and tail obscured by overlying bowel gas Liver: Visualized portions appeared wnl, right lobe visualized intercostally Gallbladder: wnl Evidence for sonographic Schaffer's sign: No CBD: wnl Right Kidney: No evidence of hydro/ Cyst lateral= 5.3 x 5.7 x 5.6 cm IMPRESSION: Cystic lesion right kidney. Otherwise unremarkable study.
[2021-10-27 09:10] VITALS: BP 174/79; PULSE 78
== END 2021-10-27 09:16 | disposition home or self-care (01) ==
LOC: EC 00:26
DX: K85.90 Acute pancreatitis without necrosis or infection, unspecified (principal); G89.29 Other chronic pain; I10 Essential (primary) hypertension; E11.40 Type 2 diabetes mellitus with diabetic neuropathy, unspecified; J44.9 Chronic obstructive pulmonary disease, unspecified; I25.2 Old myocardial infarction; K21.9 Gastro-esophageal reflux disease without esophagitis; E78.5 Hyperlipidemia, unspecified; F32.A Depression, unspecified; F41.9 Anxiety disorder, unspecified; F12.90 Cannabis use, unspecified, uncomplicated; F17.200 Nicotine dependence, unspecified, uncomplicated; Z79.4 Long term (current) use of insulin; Z79.02 Long term (current) use of antithrombotics/antiplatelets; Z79.82 Long term (current) use of aspirin; Z79.899 Other long term (current) drug therapy
CPT/HCPCS: 36415; 93005; 85379; 83880; 80053; 82150; 83690; 83735; 84484; 85025; 85610; 85730; 81001; 71046; 76705; 74177; 99284; 96374; 96375; 96376 ×2; J1170; Q9967

== ENCOUNTER 2021-11-08 09:39 | Emergency (ER) | payer BC, MEDICARE ==
[2021-11-08 10:08] VITALS: TEMP 98.4
[2021-11-08] MEDS ORDERED: SODIUM CHLORIDE 0.9% 1,000 ML IV STA (10:16)
[2021-11-08 10:37] LABS: Basophils # (A) 0.1 k/uL (0-0.2); Basophils % (A) 1 %; Eosinophils # (A) 0.2 k/uL (0-0.7); Eosinophils % (A) 1 %; HCT 52.6 % (39.0-53.0); HGB 17.8 gm/dL (13.0-17.5); Lymphocytes # (A) 1.6 k/uL (1.0-4.8); Lymphocytes % (A) 15 %; MCHC 33.8 g/dL (31.0-37.0); MCV 94.5 fL (80.0-100.0); Monocytes # (A) 0.6 k/uL (0-1.0); Monocytes % (A) 6 %; Neutrophils # (A) 8.4 k/uL (1.3-7.7); Neutrophils % (A) 76 %; Platelet Count 279 k/uL (150-450); RBC 5.57 m/uL (4.30-5.90); RDW 13.5 % (11.5-15.5); WBC 11.1 k/uL (3.8-10.6)
[2021-11-08 10:49] LABS: Albumin 4.2 g/dL (3.5-5.0); Calcium 9.2 mg/dL (8.4-10.2); Potassium 4.5 mmol/L (3.5-5.1); Total Bilirubin 1.2 mg/dL (0.2-1.3); Total Protein 7.1 g/dL (6.3-8.2)
[2021-11-08 11:34] LABS: Appearance,Urine Clear (Clear); Bilirubin,Urine Negative (Negative); Blood,Urine Small (Negative); Color,Urine Yellow; Glucose,Urine (UA) 3+ (Negative); Ketones,Urine Negative (Negative); Leukocyte Esterase,Urine Negative (Negative); Mucus,Urine Rare /hpf; Nitrite,Urine Negative (Negative); Protein,Urine 2+ (Negative); RBC,Urine 3 /hpf (0-5); Specific Gravity,Urine 1.016 (1.001-1.035); Urobilinogen,Urine <2.0 mg/dL (<2.0); WBC,Urine <1 /hpf (0-5)
--- NOTE | 2021-11-08 11:40 | XR ---
EXAMINATION TYPE: XR chest 2V DATE OF EXAM: 11/08/2021 COMPARISON: 10/27/2021 INDICATION: Dizziness nausea TECHNIQUE: Frontal and lateral views of the chest are obtained. FINDINGS: The heart size is prominent The pulmonary vasculature is upper limits of normal. No suspicious focal consolidation is evident.. Catheter transverses the thorax IMPRESSION: 1. Cardiomegaly with prominent pulmonary vascular markings. Correlate for early volume overload. Foll ow-up can be performed.
[2021-11-08] MEDS ORDERED: hydrALAZINE HCL 20 MG/ML 1 ML VIAL IVP STA (11:47)
--- NOTE | 2021-11-08 11:49 | CT ---
EXAMINATION TYPE: CT brain wo con DATE OF EXAM: 11/08/2021 COMPARISON: CT dated 04/11/2021 HISTORY: Dizziness, h/o shunt CT DLP: 1056.4 mGycm Automated exposure control for dose reduction was used. TECHNIQUE: CT scan of the brain is performed without IV contrast administration. FINDINGS: Chronic left inferior cerebellar infarct, stable. Scattered arterial atherosclerotic calcification. R ight transparietal [employer] shunt, unchanged in position. No signs of shunt malfunction. Dense intracranial vessels, appreciated previously. No acute intracranial hemorrhage. No gross acute cortical infarct. No midline shift, herniation or ve ntriculomegaly. Unremarkable basal cisterns, sella and CP angles. No gross space-occupying lesion, vasogenic edema or mass effect. Unremarkable orbits. Clear visualized paranasal sinuses and mastoid air cells. No aggressive bone les ion. IMPRESSION: Stable left inferior cerebellar chronic infarct and right transparietal [employer] shunt. No signs of shunt m alfunction. No acute intracranial hemorrhage or gross acute cortical infarct. No space-occupying lesion by this n onenhanced CT scan.
[2021-11-08 12:06] VITALS: BP 218/118; PULSE 69; RESP 12
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
== END 2021-11-08 12:40 | disposition home or self-care (01) ==
LOC: EC 09:39
DX: R42 Dizziness and giddiness (principal); I10 Essential (primary) hypertension; J44.9 Chronic obstructive pulmonary disease, unspecified; E11.9 Type 2 diabetes mellitus without complications; K21.9 Gastro-esophageal reflux disease without esophagitis; E78.5 Hyperlipidemia, unspecified; I25.2 Old myocardial infarction; F41.9 Anxiety disorder, unspecified; F32.A Depression, unspecified; F17.200 Nicotine dependence, unspecified, uncomplicated; F12.90 Cannabis use, unspecified, uncomplicated; Z79.4 Long term (current) use of insulin; Z79.82 Long term (current) use of aspirin; Z79.02 Long term (current) use of antithrombotics/antiplatelets; Z88.5 Allergy status to narcotic agent; Z88.1 Allergy status to other antibiotic agents; Z86.73 Personal history of transient ischemic attack (TIA), and cerebral infarction without residual deficits
CPT/HCPCS: 99284; 96374; 96361; 36415; 93005; 80053; 83605; 84484; 85025; 81001; 71046; 70450; J0360

== ENCOUNTER → 2021-11-13 | Outpatient (CLI) | payer BC, MEDICARE ==
--- NOTE | 2021-11-13 09:01 | US ---
EXAMINATION TYPE: US renal artery duplex complete DATE OF EXAM: 11/13/2021 COMPARISON: CT 10/27/2021 CLINICAL HISTORY: 66-year-old male I70.1. HTN TECHNIQUE: Multiple sonographic images of the kidneys are obtained. Grayscale and color Doppler and s pectral waveform analysis of the renal arteries. FINDINGS: MEASUREMENTS: RENAL SIZE: Rt Kidney: 10.6 x 5.5 x 6.5 cm Lt Kidney: 11.2 x 5.4 x 5.4 cm RESISTANCE INDEX Right: 0.71 Left: 0.59 RA/AO RATIO (< 3.5 ) Right: 2.9 Left: 1.4 RA VELOCITY ( < 180 cm/s) Right: 524 (able to achieve once), 344 is reproducible. Left: 163 [employer] Labourer notes: Multiple cysts throughout kidneys, largest right measures 6.3 x 4.9 x 5.6 cm. Elev ated right RA velocity, able to achieve highest of 524, reproducible at 344. IMPRESSION: Elevated right renal artery velocities up to 344 cm/s. Measured once at 524 cm/s. Renal artery stenos is on the right is not excluded. Further thin slice CT angiography evaluation can be performed.
== END | disposition home or self-care (01) ==
LOC: RADUSWWP 07:35
PROVIDERS: ATTEND Family Medicine
DX: I70.1 Atherosclerosis of renal artery (principal); I10 Essential (primary) hypertension
CPT/HCPCS: 93975

== ENCOUNTER 2021-12-09 02:19 | Inpatient (IN) | payer BC, MEDICARE ==
[2021-12-09 02:23] VITALS: RESP 18; TEMP 98
[2021-12-09 04:01] LABS: Basophils # (A) 0.1 k/uL (0-0.2); Basophils % (A) 1 %; Eosinophils # (A) 0.2 k/uL (0-0.7); Eosinophils % (A) 2 %; HGB 17.9 gm/dL (13.0-17.5); Lymphocytes # (A) 1.7 k/uL (1.0-4.8); Lymphocytes % (A) 14 %; MCH 32.4 pg (25.0-35.0); MCHC 33.2 g/dL (31.0-37.0); MCV 97.6 fL (80.0-100.0); Monocytes # (A) 0.6 k/uL (0-1.0); Monocytes % (A) 5 %; Neutrophils # (A) 9.3 k/uL (1.3-7.7); Neutrophils % (A) 77 %; Platelet Count 255 k/uL (150-450); RBC 5.53 m/uL (4.30-5.90); RDW 14.1 % (11.5-15.5); WBC 12.2 k/uL (3.8-10.6)
[2021-12-09] MEDS ORDERED: MORPHINE SULFATE 4 MG/ML SYRINGE IV STA ×2 (04:05→06:15)
[2021-12-09 04:11] LABS: Albumin 4.2 g/dL (3.5-5.0); Calcium 9.1 mg/dL (8.4-10.2); Potassium 4.7 mmol/L (3.5-5.1); Total Bilirubin 0.9 mg/dL (0.2-1.3)
[2021-12-09 04:16] LABS: Amorphous Sediment,Urine Rare /hpf; Appearance,Urine Clear (Clear); Bilirubin,Urine Negative (Negative); Blood,Urine Small (Negative); Color,Urine Yellow; Glucose,Urine (UA) 4+ (Negative); Ketones,Urine Trace (Negative); Leukocyte Esterase,Urine Negative (Negative); Mucus,Urine Rare /hpf; Nitrite,Urine Negative (Negative); PH, Urine 5.5 (5.0-8.0); Protein,Urine 2+ (Negative); RBC,Urine 9 /hpf (0-5); Specific Gravity,Urine 1.018 (1.001-1.035); Squamous Epithelial Cell,Urine <1 /hpf (0-4); Uric Acid Crystals,Urine Rare /hpf; Urobilinogen,Urine <2.0 mg/dL (<2.0); WBC,Urine 1 /hpf (0-5)
[2021-12-09] MEDS ORDERED: SODIUM CHLORIDE 0.9% 1,000 ML IV ONE (06:15)
[2021-12-09] MEDS ORDERED: LABETALOL SYRINGE 5 MG/ML IVP STA (07:26)
[2021-12-09] MEDS ORDERED: cloNIDine HCL 0.2 MG TAB PO STA (07:27)
[2021-12-09] MEDS ORDERED: MAG HYDROX/AL HYDROX/SIMETH 30 ML CUP PO PRN (07:33)
[2021-12-09] MEDS ORDERED: NALOXONE 0.4 MG/ML 1 ML VIAL IV PRN (07:33)
[2021-12-09] MEDS ORDERED: PROMETHAZINE 25 MG TAB PO PRN (07:33)
[2021-12-09] MEDS ORDERED: ACETAMINOPHEN TAB 325 MG TAB PO PRN (07:33)
[2021-12-09] MEDS ORDERED: PROCHLORPERAZINE SUPPOSITORY 25 MG SUPP RECTAL PRN (07:33)
[2021-12-09] MEDS ORDERED: PROCHLORPERAZINE 5 MG TAB PO PRN (07:33)
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
[2021-12-09] MEDS ORDERED: SODIUM CHLORIDE 0.9% 1,000 ML IV SCH ×2 (07:45→10:30)
[2021-12-09 09:32] VITALS: BP 189/98; PULSE 83
[2021-12-09] MEDS ORDERED: FAMOTIDINE 20 MG/2 ML VIAL IV SCH (10:30)
[2021-12-09] MEDS ORDERED: lisinopriL 20 MG TAB PO SCH (10:30)
[2021-12-09] MEDS ORDERED: cloNIDine HCL 0.2 MG TAB PO SCH (10:30)
[2021-12-09] MEDS ORDERED: NON FORMULARY DRUG (Metoprolol Tartrate [Lopressor] 100 MG Tablet) PO SCH (10:30)
[2021-12-09] MEDS ORDERED: INSULIN ASPART (NovoLOG) 100 UNIT/ML VIAL SQ SCH (12:30)
[2021-12-09] MEDS ORDERED: HEPARIN SODIUM,PORCINE/PF 5,000 UNIT/0.5 ML SYRINGE SQ SCH (16:00)
== END 2021-12-09 10:26 | disposition home or self-care (01) | DRG 392 ==
LOC: EC 02:19 → 3SCARD 07:43 → UNDODISIN 10:26
PROVIDERS: ADMIT Hospitalist; ATTEND Hospitalist
DX: R11.2 Nausea with vomiting, unspecified (principal); G91.9 Hydrocephalus, unspecified; Z20.822 Contact with and (suspected) exposure to COVID-19; E11.9 Type 2 diabetes mellitus without complications; E11.40 Type 2 diabetes mellitus with diabetic neuropathy, unspecified; J44.9 Chronic obstructive pulmonary disease, unspecified; E78.5 Hyperlipidemia, unspecified; E86.0 Dehydration; F17.210 Nicotine dependence, cigarettes, uncomplicated; H91.90 Unspecified hearing loss, unspecified ear; I10 Essential (primary) hypertension; I25.2 Old myocardial infarction; G43.909 Migraine, unspecified, not intractable, without status migrainosus; Z87.19 Personal history of other diseases of the digestive system; K58.9 Irritable bowel syndrome, unspecified; Z87.820 Personal history of traumatic brain injury; Z79.02 Long term (current) use of antithrombotics/antiplatelets; Z79.4 Long term (current) use of insulin; Z79.82 Long term (current) use of aspirin; Z86.73 Personal history of transient ischemic attack (TIA), and cerebral infarction without residual deficits; Z91.041 Radiographic dye allergy status; Z88.8 Allergy status to other drugs, medicaments and biological substances; Z88.5 Allergy status to narcotic agent; Z98.2 Presence of cerebrospinal fluid drainage device
CPT/HCPCS: 36415; 80053; 81001; 82150; 83605; 83690; 84484; 85025; 87040; 87635; 96361; 96374; 96375; 96376; 99284

== ENCOUNTER 2021-12-19 04:58 | Inpatient (IN) | payer BC, MEDICARE ==
[2021-12-19] MEDS ORDERED: MORPHINE SULFATE 4 MG/ML SYRINGE IV STA ×2 (05:21→07:25)
[2021-12-19 05:40] LABS: Basophils # (A) 0.2 k/uL (0-0.2); Basophils % (A) 2 %; Eosinophils # (A) 0.2 k/uL (0-0.7); Eosinophils % (A) 2 %; HGB 17.2 gm/dL (13.0-17.5); Lymphocytes # (A) 1.6 k/uL (1.0-4.8); Lymphocytes % (A) 14 %; MCH 30.1 pg (25.0-35.0); MCHC 31.1 g/dL (31.0-37.0); MCV 96.7 fL (80.0-100.0); Mean Platelet Volume 6.9; Monocytes # (A) 0.6 k/uL (0-1.0); Monocytes % (A) 5 %; Neutrophils # (A) 8.4 k/uL (1.3-7.7); Neutrophils % (A) 75 %; Platelet Count 302 k/uL (150-450); RBC 5.72 m/uL (4.30-5.90); RDW 13.2 % (11.5-15.5); WBC 11.1 k/uL (3.8-10.6)
[2021-12-19 05:48] LABS: Albumin 4.4 g/dL (3.5-5.0); Calcium 9.2 mg/dL (8.4-10.2); Magnesium 1.8 mg/dL (1.6-2.3); Total Bilirubin 1.3 mg/dL (0.2-1.3); Total Protein 7.4 g/dL (6.3-8.2)
[2021-12-19 05:53] LABS: HCT 55.3 % (39.0-53.0)
--- NOTE | 2021-12-19 05:53 | XR ---
EXAMINATION TYPE: XR chest 1V portable DATE OF EXAM: 12/19/2021 COMPARISON: 11/08/2021 HISTORY: Chest pain TECHNIQUE: FINDINGS: There is no heart failure nor confluent pneumonic infiltrate. There is ventricular peritone al shunt catheter noted. Heart size is normal. There is no pleural effusion. IMPRESSION: No active cardiopulmonary disease. No change.
[2021-12-19 05:56] LABS: Potassium 5.1 mmol/L (3.5-5.1)
[2021-12-19 06:04] LABS: INR 1.1 (<1.2); Prothrombin Time 11.6 sec (9.0-12.0)
[2021-12-19] MEDS ORDERED: ONDANSETRON 4 MG/2 ML VIAL IVP STA (07:22)
[2021-12-19] MEDS ORDERED: MAG HYDROX/AL HYDROX/SIMETH 30 ML, HYOSCYAMINE ELIXIR 10 ML, LIDOCAINE VISCOUS 2% 10 ML PO STA ×3 (07:22)
[2021-12-19] MEDS ORDERED: METOCLOPRAMIDE 5 MG/ML 2 ML VIAL IVP STA (07:23)
--- NOTE | 2021-12-19 07:28 | ED ---
Chest Pain HPI - General Chief Complaint: Chest Pain Stated Complaint: Chest Pain Time Seen by Provider: 12/19/21 05:21 Source: patient Mode of arrival: ambulatory Limitations: no limitations - History of Present Illness MD Complaint: chest pain -: hour(s) Onset: awoke with symptoms Pain Location: epigastric Pain Radiation: back Severity: moderate Quality: aching Consistency: constant Improves With: nothing Worsens With: nothing Anginal Symptoms: nausea Treatments Prior to Arrival: none - Related Data Home Medications Medication Instructions Recorded Confirmed Aspirin EC [Ecotrin Low Dose] 81 mg PO DAILY 02/15/20 12/19/21 Nitroglycerin Sl Tabs [Nitrostat] 0.4 mg SL Q5M PRN 08/18/20 12/19/21 Cholecalciferol (Vitamin D3) 75 mcg PO DAILY 11/08/21 12/19/21 [Vitamin D3 (3000 Iu)] Previous Rx's Medication Instructions Recorded Clopidogrel [Plavix] 75 mg PO DAILY #30 tab 08/20/20 Mag Hydrox/Al Hydrox/Simeth 30 ml PO BID PRN 7 Days #500 ml 10/11/21 [Maalox] Carvedilol [Coreg] 25 mg PO BID #60 tablet 12/21/21 Dicyclomine [Bentyl] 10 mg PO QID PRN #30 cap 12/21/21 Insulin Aspart [NovoLOG Flexpen] 14 units SQ AC-TID #0 12/21/21 Insulin Detemir [Levemir Flextouch 40 units SQ DAILY #0 12/21/21 Pen] Naproxen [Naprosyn] 250 mg PO TID #60 tab 12/21/21 Nicotine 21Mg/24Hr Patch [Habitrol] 1 patch TRANSDERM DAILY #14 patch 12/21/21 Omeprazole [PriLOSEC] 20 mg PO AC-BID #60 cap 12/21/21 Psyllium Husk 100% [Metamucil 6 gm PO DAILY #30 packet 12/21/21 Packet] Valsartan [Diovan] 80 mg PO BID #60 tab 12/21/21 amLODIPine [Norvasc] 10 mg PO DAILY #30 tab 12/21/21 cloNIDine HCL [Catapres] 0.2 mg PO TID #90 tab 12/21/21 Allergies Allergy/AdvReac Type Severity Reaction Status Date / Time blue dye Allergy Severe Rash/Hives Verified 12/19/21 07:20 codeine Allergy Itching Verified 12/19/21 07:20 naproxen sodium [From Aleve] Allergy Rash/Hives Verified 12/19/21 07:20 ondansetron [From Zofran] Allergy Rash/Hives Verified 12/19/21 07:20 gabapentin AdvReac Abdominal Verified 12/19/21 07:20 Pain naloxegol [From Movantik] AdvReac Nausea & Verified 12/19/21 07:20 Vomiting Review of Systems ROS Statement: Those systems with pertinent positive or pertinent negative responses have been documented in the HPI. ROS Other: All systems not noted in ROS Statement are negative. Constitutional: Denies: fever, chills Respiratory: Denies: cough, dyspnea Cardiovascular: Denies: chest pain, palpitations, dyspnea on exertion Gastrointestinal: Reports: nausea. Denies: abdominal pain, vomiting, diarrhea, hematemesis, melena, hematochezia Genitourinary: Denies: dysuria, hematuria Musculoskeletal: Denies: back pain Skin: Denies: rash Neurological: Denies: headache, weakness EKG Findings - EKG Results: EKG: interpreted by RIA, sinus rhythm (Rate 92 bpm) - Blocks, [place], Hypertrophy, ST Abn: Chamber hypertrophy or enlargement: only voltage criteria for left ventricular hypertrophy Repolarization changes or abnormalities: nonspecific abnormality, ST segment, and/or T wave Past Medical History Past Medical History: Chest Pain / Angina, COPD, CVA/TIA, Diabetes Mellitus, GERD/Reflux, Hearing Disorder / Deafness, Hyperlipidemia, Hypertension, Myocardial Infarction ([place]), Renal Disease Additional Past Medical History / Comment(s): IDDM type II, neuropathy bilateral feet, CVA with no residual, TIA, hydrocephalus with PARADICHLOROBENZENE TENDER shunt, recent admissions for abdominal pain/severe depression, IBS, diverticulitis/bowel resection, hiatal hernia, DJD, occasional cervical pain, migraines, skull/head injury at age 19 with lengthy hospitalization, nephrolithiasis-passed stone on his own, [place] bilaterally. History of Any Multi-Drug Resistant Organisms: None Reported Past Surgical History: Back Surgery, Bowel Resection, Heart Catheterization With Stent, Orthopedic Surgery Additional Past Surgical History / Comment(s): 02/18/20 Robot assisted laparoscopy/extensive lysis of adhesions, PARADICHLOROBENZENE TENDER shunt, 2020 R elbow tendon surgery, L knee arthroscopy, L hand amp d/t industrial accident, cervical fusion, bowel resection d/t diverticulitis, EGD, colonoscopy, hemorrhoidectomy, Heart cath with 2 stents on 08/26/2020 Past Anesthesia/Blood Transfusion Reactions: No Reported Reaction Past Psychological History: Anxiety, Depression Smoking Status: Current every day smoker Past Alcohol Use History: None Reported Past Drug Use History: Marijuana - Past Family History Mother Family Medical History: Cancer Additional Family Medical History / Comment(s): kidney Father Family Medical History: Cancer Additional Family Medical History / Comment(s): pancreatic General Exam Limitations: no limitations General appearance: alert, in no apparent distress Head exam: Present: atraumatic, normocephalic Eye exam: Present: normal appearance. Absent: scleral icterus, conjunctival injection ENT exam: Present: normal oropharynx Neck exam: Present: normal inspection Respiratory exam: Present: normal lung sounds bilaterally. Absent: respiratory distress, wheezes, rales, rhonchi, stridor Cardiovascular Exam: Present: regular rate, normal rhythm, normal heart sounds. Absent: systolic murmur, diastolic murmur, rubs, gallop GI/Abdominal exam: Present: soft. Absent: distended, tenderness, guarding, rebound, rigid, mass Extremities exam: Present: normal inspection, normal capillary refill. Absent: pedal edema, calf tenderness Back exam: Present: normal inspection. Absent: CVA tenderness (R), CVA tenderness (L) Neurological exam: Present: alert Skin exam: Present: warm, dry, intact, normal color. Absent: rash Course Vital Signs 12/19/21 12/19/21 12/19/21 05:02 05:24 06:30 Temperature 98.5 F Pulse Rate 100 89 86 Respiratory 20 18 18 Rate Blood Pressure 221/119 240/122 167/103 O2 Sat by Pulse 99 96 Oximetry 12/19/21 12/19/21 12/19/21 08:25 12:05 12:49 Temperature Pulse Rate 92 84 85 Respiratory 18 18 16 Rate Blood Pressure 152/93 170/104 201/105 O2 Sat by Pulse 99 98 96 Oximetry 12/19/21 12/19/21 12/19/21 13:30 17:16 18:17 Temperature Pulse Rate 84 78 82 Respiratory 18 16 16 Rate Blood Pressure 155/96 172/102 167/92 O2 Sat by Pulse 96 96 96 Oximetry Disposition Clinical Impression: Epigastric pain, Hyperglycemia Disposition: ADMITTED IP TO THIS HOSP Condition: Fair Is patient prescribed a controlled substance at d/c from ED?: No
[2021-12-19] MEDS ORDERED: NITROGLYCERIN SL TABS 0.4 MG TAB SUBLINGUAL PRN (07:34)
[2021-12-19] MEDS ORDERED: lisinopriL 20 MG TAB PO SCH (09:30)
[2021-12-19] MEDS ORDERED: CLOPIDOGREL 75 MG TAB PO SCH (09:30)
[2021-12-19] MEDS ORDERED: MAG HYDROX/AL HYDROX/SIMETH 30 ML CUP PO PRN (09:47)
[2021-12-19] MEDS: INSULIN ASPART (NovoLOG) 100 UNIT/ML VIAL SQ SCH ×2 (12:06→17:28)
[2021-12-19 12:07] LABS: Glucose,Whole Blood 271 mg/dL (75-99)
[2021-12-19] MEDS: amLODIPine 10 MG TAB PO SCH (12:07)
[2021-12-19] MEDS: carvediloL 12.5 MG TAB PO SCH ×2 (12:07→17:23)
[2021-12-19] MEDS: VALSARTAN 80 MG TAB PO SCH ×2 (12:07→20:42)
--- NOTE | 2021-12-19 12:46 | P.CRDCN ---
History of Present Illness Consult date: 12/19/21 History of present illness: HISTORY OF PRESENT ILLNESS: This is a 66-year-old male with a past medical history significant for coronary artery disease status post PCI mid RCA in August 2020, hypertension, hyperlipidemia, diabetes, nicotine dependence, and TIA. Patient follows in the office with Dr. Guillen. We have been asked to see the patient in consultation for chest pain. Patient examined at the bedside. Patient presented to the hospital secondary to chest pain and elevated blood pressure. Patient states his pressure medications were adjusted last week however his blood pressures continue to be elevated at home. He reports his clonidine was increased from 0.2 mg 3 times a day to 0.3 mg 3 times a day. The patient's blood pressure was found to be over 200 systolic. His blood pressure this morning at the time of examination is in the 180s/100s. * EKG reveals sinus mechanism with no signs of acute ischemia. LVH. * Chest xray negative for acute process * Laboratory data: W BC 11.1. Hemoglobin 17.2. Platelet count 302. Sodium 1 35. Potassium 5.1. BUN 17. Creatinine 1.07. Troponin negative 3. * Current home cardiac medications include lisinopril 20 mg twice a day, clonidine 0.3 mg 3 times a day, metoprolol tartrate 100 mg twice a day, Plavix 75 mg daily, aspirin 81 mg daily * Most recent echocardiogram obtained in September 2021 revealed ejection fraction 55-60%, trace TR, and trace MR * Cardiac catheterization history: August 2020 with stenting of the mid RCA REVIEW OF SYSTEMS: At the time of my exam: CONSTITUTIONAL: Denies fever or chills. HEENT: Denies blurred vision, vision changes, or eye pain. Denies hemoptysis CARDIOVASCULAR: Denies chest pain. Denies orthopnea. Denies PND. Denies palpitations RESPIRATORY: Denies shortness of breath. GASTROINTESTINAL: Denies abdominal pain. Denies nausea or vomiting. HEMATOLOGIC: Denies bleeding disorders. GENITOURINARY: Denies any blood in urine. SKIN: Denies pruitis. Denies rash. PHYSICAL EXAM: VITAL SIGNS: Reviewed. GENERAL: Well-developed in no acute distress. HEENT: Head is normocephalic. Pupils are equal, round. Sclerae anicteric. Mucous membranes of the mouth are moist. Neck supple. No JVD or thyromegaly LUNGS: Respirations even and unlabored. Lungs essentially clear to auscultation bilaterally. HEART: Regular rate and rhythm. S1 and S2 heard. ABDOMEN: Soft. Nondistended. Nontender. EXTREMITIES: Normal range of motion. No clubbing or cyanosis. Peripheral pulses intact. No lower extremity edema NEUROLOGIC: Awake and alert. Oriented x 3. ASSESSMENT: Chest pain, atypical, troponins negative 3 Hypertension, uncontrolled on admission Coronary artery disease with previous PCI of mid RCA, August 2020 Hyperlipidemia Diabetes History of TIA Nicotine dependence PLAN: No need to repeat echocardiogram Discontinue metoprolol Discontinue clonidine Begin carvedilol 25 mg twice a day Begin valsartan 80 mg twice a day Begin amlodipine 10 mg daily Continue to monitor blood pressure Further recommendations pending patient's course Nurse practitioner note has been reviewed by physician. Signing provider agrees with the documented findings, assessment, and plan of care. Past Medical History Past Medical History: Chest Pain / Angina, COPD, CVA/TIA, Diabetes Mellitus, GERD/Reflux, Hearing Disorder / Deafness, Hyperlipidemia, Hypertension, Myocardial Infarction ([place]), Renal Disease Additional Past Medical History / Comment(s): IDDM type II, neuropathy bilateral feet, CVA with no residual, TIA, hydrocephalus with DEVOPS ENGINEER shunt, recent admissions for abdominal pain/severe depression, IBS, diverticulitis/bowel resection, hiatal hernia, DJD, occasional cervical pain, migraines, skull/head injury at age 19 with lengthy hospitalization, nephrolithiasis-passed stone on his own, [place] bilaterally. History of Any Multi-Drug Resistant Organisms: None Reported Past Surgical History: Back Surgery, Bowel Resection, Heart Catheterization With Stent, Orthopedic Surgery Additional Past Surgical History / Comment(s): 02/18/20 Robot assisted laparoscopy/extensive lysis of adhesions, DEVOPS ENGINEER shunt, 2019 R elbow tendon surgery, L knee arthroscopy, L hand amp d/t industrial accident, cervical fusion, bowel resection d/t diverticulitis, EGD, colonoscopy, hemorrhoidectomy, Heart cath with 2 stents on 08/26/2020 Past Anesthesia/Blood Transfusion Reactions: No Reported Reaction Past Psychological History: Anxiety, Depression Smoking Status: Current every day smoker Past Alcohol Use History: None Reported Past Drug Use History: Marijuana - Past Family History Mother Family Medical History: Cancer Additional Family Medical History / Comment(s): kidney Father Family Medical History: Cancer Additional Family Medical History / Comment(s): pancreatic Medications and Allergies Home Medications Medication Instructions Recorded Confirmed Type lisinopriL [Zestril] 20 mg PO BID 11/24/15 12/19/21 History Insulin Aspart [NovoLOG Flexpen] 12 units SQ AC-LUNCH 12/15/18 12/19/21 History Insulin Aspart [NovoLOG Flexpen] 22 units SQ AC-BID@0900,1800 12/15/18 12/19/21 History Aspirin EC [Ecotrin Low Dose] 81 mg PO DAILY 02/15/20 12/19/21 History Nitroglycerin Sl Tabs [Nitrostat] 0.4 mg SL Q5M PRN 08/18/20 12/19/21 History Clopidogrel [Plavix] 75 mg PO DAILY #30 tab 08/20/20 12/19/21 Rx Metoprolol Tartrate [Lopressor] 100 mg PO BID #60 tab 08/20/20 12/19/21 Rx Insulin Detemir [Levemir Flextouch] 55 units SQ DAILY 01/09/21 12/19/21 History Famotidine [Pepcid AC] 10 mg PO BID 7 Days #14 tablet 10/11/21 12/19/21 Rx Mag Hydrox/Al Hydrox/Simeth 30 ml PO BID PRN 7 Days #500 ml 10/11/21 12/19/21 Rx [Maalox] Cholecalciferol (Vitamin D3) 75 mcg PO DAILY 11/08/21 12/19/21 History [Vitamin D3 (3000 Iu)] Docusate [Colace] 100 mg PO HS 11/08/21 12/19/21 History cloNIDine HCL [Catapres] 0.3 mg PO TID 12/19/21 12/19/21 History Allergies Allergy/AdvReac Type Severity Reaction Status Date / Time blue dye Allergy Severe Rash/Hives Verified 12/19/21 07:20 codeine Allergy Itching Verified 12/19/21 07:20 naproxen sodium [From Aleve] Allergy Rash/Hives Verified 12/19/21 07:20 ondansetron [From Zofran] Allergy Rash/Hives Verified 12/19/21 07:20 gabapentin AdvReac Abdominal Verified 12/19/21 07:20 Pain naloxegol [From Movantik] AdvReac Nausea & Verified 12/19/21 07:20 Vomiting Physical Exam Vitals: Vital Signs Temp Pulse Resp BP Pulse Ox 12/19/21 08:25 92 18 152/93 99 12/19/21 06:30 86 18 167/103 12/19/21 05:24 89 18 240/122 96 12/19/21 05:02 98.5 F 100 20 221/119 99 Intake and Output 12/18/21 12/19/21 12/19/21 22:59 06:59 14:59 Other: Weight 93.44 kg Results 12/19/21 05:26 12/19/21 05:26 Cardiac Enzymes 12/19/21 12/19/21 Range/Units 05:26 05:26 AST 30 (17-59) U/L Troponin I <0.012 (0.000-0.034) ng/mL Coagulation 12/19/21 Range/Units 05:26 PT 11.6 (9.0-12.0) sec APTT 25.0 (22.0-30.0) sec CBC 12/19/21 Range/Units 05:26 WBC 11.1 H (3.8-10.6) k/uL RBC 5.72 (4.30-5.90) m/uL Hgb 17.2 (13.0-17.5) gm/dL Hct 55.3 H (39.0-53.0) % Plt Count 302 (150-450) k/uL Comprehensive Metabolic Panel 12/19/21 Range/Units 05:26 Sodium 135 L (137-145) mmol/L Potassium 5.1 (3.5-5.1) mmol/L Chloride 104 (98-107) mmol/L Carbon Dioxide 21 L (22-30) mmol/L BUN 17 (9-20) mg/dL Creatinine 1.07 (0.66-1.25) mg/dL Glucose 253 H (74-99) mg/dL Calcium 9.2 (8.4-10.2) mg/dL AST 30 (17-59) U/L ALT 23 (4-49) U/L Alkaline Phosphatase 108 (38-126) U/L Total Protein 7.4 (6.3-8.2) g/dL Albumin 4.4 (3.5-5.0) g/dL Current Medications Generic Name Dose Route Start Last Admin Trade Name Freq PRN Reason Stop Dose Admin Aspirin 325 mg 12/20/21 09:00 Aspirin 325 Mg Tab PO DAILY OPAL Nitroglycerin 0.4 mg 12/19/21 07:34 Nitroglycerin Sl Tabs 0.4 Mg Tab SUBLINGUAL Q5M PRN Chest Pain Intake and Output 12/18/21 12/19/21 12/19/21 22:59 06:59 14:59 Other: Weight 93.44 kg 12/19/21 05:26 12/19/21 05:26
[2021-12-19] MEDS ORDERED: DICYCLOMINE 10 MG CAP PO PRN (15:37)
--- NOTE | 2021-12-19 15:41 | P.HPIM ---
History of Present Illness H&P Date: 12/19/21 This is a pleasant 66 year old male who presents to this hospital with complaints of left sided chest pain described as a tight squeeze which than progressed into a stabbing sensation later on in the evening yesterday. Patient reports radiation into the jaw and arm, which has currently subsided. He took tylenol at home for the pain. Blood pressure at home was too high to register on his machine. When he presented to the Blood pressure was found to be 220/110s. Patient reports associated dizziness as well. He has been short of breath with non productive cough. Patient also states he is having abdominal pain lower quadrant feels like a tight band which he states is constant as well as nausea and vomiting late in the evening when lying flat to sleep, this has been ongoing for the last 9 months. Patient was recently evaluated in the 4 times in the last couple months for nausea and vomiting. He had an abdominal ultrasound completed in October of 2021 showing cystic lesion right kidney, and abdominal pelvis CT showing no acute abnormality within the abdomen and pelvis. States he was following with Dr Mercedes outpatient and is due for colonoscopy, was also told he had a hiatal hernia in the past. Chronic conditions include COPD, TIA, CVA with no residual,, diabetes mellitus type 2, hypertension, hyperlipidemia, renal disease, GERD, heart cath with stent most recent in August 2020, myocardial infarction, skull/head injury at age 19 with lengthy hospitalization, hydrocephalus with FAMILY SUPPORT SPECIALIST shunt. Patient also had left-hand amputation, bowel resection secondary to diverticulitis. Reports anxiety/depression, there will history of alcohol use has not drink in 30 years, was a 1 pack per day smoker he has cut down to 5 cigars per day and was planning on quitting this upcoming weekend. Occasional marijuana use. Pt reports he has established care with Dr Gutierrez and was supposed to see today, Dr Evans will resume care tomorrow. Workup consists of labs including white count 11.1, hematocrit 55.3, neutrophils 8.4, sodium 135, CO2 21, glucose 253, troponin level negative 2, amylase 118, lipase 372. Chest x-ray showing no acute cardiopulmonary disease. EKG showing sinus rhythm, heart rate 92, QT interval 398 Patient admitted to the hospital with consults placed to cardiology associates. REVIEW OF SYSTEMS: CONSTITUTIONAL: No fever, no malaise, no fatigue. HEENT: No recent visual problems or hearing problems. Denied any sore throat. CARDIOVASCULAR: No chest pain, orthopnea, PND, no palpitations, no syncope. PULMONARY: No shortness of breath, no cough, no hemoptysis. GASTROINTESTINAL: No diarrhea, no nausea, no vomiting, no abdominal pain. NEUROLOGICAL: No headaches, no weakness, no numbness. HEMATOLOGICAL: Denies any bleeding or petechiae. GENITOURINARY: Denies any burning micturition, frequency, or urgency. MUSCULOSKELETAL/RHEUMATOLOGICAL: Denies any joint pain, swelling, or any muscle pain. ENDOCRINE: Denies any polyuria or polydipsia. The rest of the 14-point review of systems is negative. PHYSICAL EXAMINATION: GENERAL: The patient is alert and oriented x3, not in any acute distress. Well developed, well nourished. HEENT: Pupils are round and equally reacting to light. EOMI. No scleral icterus. No conjunctival pallor. Normocephalic, atraumatic. No pharyngeal erythema. No thyromegaly. CARDIOVASCULAR: S1 and S2 present. No murmurs, rubs, or gallops. PULMONARY: Chest is clear to auscultation, no wheezing or crackles. ABDOMEN: Soft, nontender, nondistended, normoactive bowel sounds. No palpable organomegaly. MUSCULOSKELETAL: No joint swelling or deformity. EXTREMITIES: No cyanosis, clubbing, or pedal edema. NEUROLOGICAL: Gross neurological examination did not reveal any focal deficits. SKIN: No rashes. Assessment and Plan Assessment Chest pain, rule out ACS, cardiac evaluation pending Hypertension, uncontrolled on admission Chronic lower quadrant abdominal pain with associated nausea vomiting Leukocytosis reactive Elevated amylase and lipase Diabetes mellitus with hyperglycemia Coronary artery disease status post stenting Hyperlipidemia History of stroke no residual History COPD, not in acute exacerbation History of GERD Anxiety/Depression Obesity Daily tobacco use History of left hand amputation GI prophylaxis DVT prophylaxis Full Code Plan Cardiology consultation Resume appropriate home medications Start bentyl Surgical evaluation Resume appropriate home medications Psychiatric evaluation The impression and plan of care has been dictated by Natasha Miller Nurse Practitioner as directed. Dr. Dora MD I have performed a history and physical examination and medical decision making of this patient, discussed the same with the dictator, and agree with the dictators assessment and plan as written, documented as a scribe. Based on total visit time, I have performed more than 50% of this visit. Past Medical History Past Medical History: Chest Pain / Angina, COPD, CVA/TIA, Diabetes Mellitus, GERD/Reflux, Hearing Disorder / Deafness, Hyperlipidemia, Hypertension, Myocardial Infarction ([place]), Renal Disease Additional Past Medical History / Comment(s): IDDM type II, neuropathy bilateral feet, CVA with no residual, TIA, hydrocephalus with FAMILY SUPPORT SPECIALIST shunt, recent admissions for abdominal pain/severe depression, IBS, diverticulitis/bowel resection, hiatal hernia, DJD, occasional cervical pain, migraines, skull/head injury at age 19 with lengthy hospitalization, nephrolithiasis-passed stone on his own, [place] bilaterally. History of Any Multi-Drug Resistant Organisms: None Reported Past Surgical History: Back Surgery, Bowel Resection, Heart Catheterization With Stent, Orthopedic Surgery Additional Past Surgical History / Comment(s): 02/18/20 Robot assisted laparoscopy/extensive lysis of adhesions, FAMILY SUPPORT SPECIALIST shunt, 2019 R elbow tendon surgery, L knee arthroscopy, L hand amp d/t industrial accident, cervical fusion, bowel resection d/t diverticulitis, EGD, colonoscopy, hemorrhoidectomy, Heart cath with 2 stents on 08/26/2020 Past Anesthesia/Blood Transfusion Reactions: No Reported Reaction Past Psychological History: Anxiety, Depression Smoking Status: Current every day smoker Past Alcohol Use History: None Reported Past Drug Use History: Marijuana - Past Family History Mother Family Medical History: Cancer Additional Family Medical History / Comment(s): kidney Father Family Medical History: Cancer Additional Family Medical History / Comment(s): pancreatic Medications and Allergies Home Medications Medication Instructions Recorded Confirmed Type lisinopriL [Zestril] 20 mg PO BID 11/24/15 12/19/21 History Insulin Aspart [NovoLOG Flexpen] 12 units SQ AC-LUNCH 12/15/18 12/19/21 History Insulin Aspart [NovoLOG Flexpen] 22 units SQ AC-BID@0900,1800 12/15/18 12/19/21 History Aspirin EC [Ecotrin Low Dose] 81 mg PO DAILY 02/15/20 12/19/21 History Nitroglycerin Sl Tabs [Nitrostat] 0.4 mg SL Q5M PRN 08/18/20 12/19/21 History Clopidogrel [Plavix] 75 mg PO DAILY #30 tab 08/20/20 12/19/21 Rx Metoprolol Tartrate [Lopressor] 100 mg PO BID #60 tab 08/20/20 12/19/21 Rx Insulin Detemir [Levemir Flextouch] 55 units SQ DAILY 01/09/21 12/19/21 History Famotidine [Pepcid AC] 10 mg PO BID 7 Days #14 tablet 10/11/21 12/19/21 Rx Mag Hydrox/Al Hydrox/Simeth 30 ml PO BID PRN 7 Days #500 ml 10/11/21 12/19/21 Rx [Maalox] Cholecalciferol (Vitamin D3) 75 mcg PO DAILY 11/08/21 12/19/21 History [Vitamin D3 (3000 Iu)] Docusate [Colace] 100 mg PO HS 11/08/21 12/19/21 History cloNIDine HCL [Catapres] 0.3 mg PO TID 12/19/21 12/19/21 History Allergies Allergy/AdvReac Type Severity Reaction Status Date / Time blue dye Allergy Severe Rash/Hives Verified 12/19/21 07:20 codeine Allergy Itching Verified 12/19/21 07:20 naproxen sodium [From Aleve] Allergy Rash/Hives Verified 12/19/21 07:20 ondansetron [From Zofran] Allergy Rash/Hives Verified 12/19/21 07:20 gabapentin AdvReac Abdominal Verified 12/19/21 07:20 Pain naloxegol [From Movantik] AdvReac Nausea & Verified 12/19/21 07:20 Vomiting Physical Exam Vitals: Vital Signs Temp Pulse Resp BP Pulse Ox 12/19/21 08:25 92 18 152/93 99 12/19/21 06:30 86 18 167/103 12/19/21 05:24 89 18 240/122 96 12/19/21 05:02 98.5 F 100 20 221/119 99 Intake and Output 12/18/21 12/19/21 12/19/21 22:59 06:59 14:59 Other: Weight 93.44 kg Results CBC & Chem 7: 12/19/21 05:26 12/19/21 05:26 Labs: Abnormal Lab Results - Last 24 Hours (Table) 12/19/21 12/19/21 Range/Units 05:26 05: WBC 11.1 H (3.8-10.6) k/uL Hct 55.3 H (39.0-53.0) % Neutrophils # 8.4 H (1.3-7.7) k/uL Sodium 135 L (137-145) mmol/L Carbon Dioxide 21 L (22-30) mmol/L Glucose 253 H (74-99) mg/dL Amylase 118 H (30-110) U/L Lipase 372 H (23-300) U/L Assessment and Plan Time with Patient: Greater than 30
[2021-12-19] MEDS ORDERED: MORPHINE SULFATE 2 MG/ML SYRINGE IVP STA ×2 (16:06→22:55)
[2021-12-19 17:32] LABS: Glucose,Whole Blood 171 mg/dL (75-99)
[2021-12-19] MEDS: PANTOPRAZOLE 40 MG/10 ML VIAL IVP SCH (20:40)
[2021-12-19] MEDS: HYDROcodone/APAP 7.5-325MG 1 EACH TAB PO PRN (20:41)
[2021-12-19] MEDS: DOCUSATE 100 MG CAP PO SCH (20:42)
[2021-12-19 22:51] LABS: Glucose,Whole Blood 126 mg/dL (75-99)
[2021-12-20] MEDS: HYDROcodone/APAP 7.5-325MG 1 EACH TAB PO PRN ×4 (02:09→22:45)
[2021-12-20] MEDS: carvediloL 12.5 MG TAB PO SCH ×2 (05:00→17:23)
[2021-12-20] MEDS: amLODIPine 10 MG TAB PO SCH (07:23)
[2021-12-20 08:01] LABS: Glucose,Whole Blood 218 mg/dL (75-99)
[2021-12-20] MEDS: VALSARTAN 80 MG TAB PO SCH ×2 (08:26→20:33)
[2021-12-20] MEDS: PANTOPRAZOLE 40 MG/10 ML VIAL IVP SCH ×2 (08:26→20:34)
[2021-12-20] MEDS: CLOPIDOGREL 75 MG TAB PO SCH (08:27)
[2021-12-20] MEDS: CHOLECALCIFEROL 25 MCG (1000 IU) TABLET PO SCH (08:27)
[2021-12-20] MEDS: ASPIRIN 81 MG PO SCH (08:27)
[2021-12-20] MEDS: INSULIN ASPART (NovoLOG) 100 UNIT/ML VIAL SQ SCH ×3 (08:27→17:27)
[2021-12-20] MEDS: INSULIN DETEMIR (LEVEMIR) 100 UNIT/ML SYR SQ SCH (08:34)
[2021-12-20] MEDS ORDERED: ASPIRIN 325 MG TAB PO SCH (09:00)
[2021-12-20 09:42] LABS: ALT 18 U/L (10-49); AST 13 U/L (14-35); African American GFR (CKD) 72.8 (60.0-200.0); Albumin 3.9 g/dL (3.8-4.9); Albumin/Globulin Ratio 1.77 (1.60-3.17); Alkaline Phosphatase 103 U/L (41-126); Amylase 123 U/L (23-121); BUN/Creat Ratio 15.97 Ratio (12.00-20.00); Calcium 8.9 mg/dL (8.7-10.3); Carbon Dioxide 18.8 mmol/L (20.0-27.5); Chloride 104 mmol/L (96-109); Chol/HDL Ratio 4.18 Ratio; Globulin 2.2 g/dL (1.6-3.3); Glucose 191 mg/dL (70-110); LDL Cholesterol,Calculated 109.1 mg/dL (0.0-131.0); Lipase 48 U/L (14-60); Non-African American GFR(CKD) 62.8 (60.0-200.0); Potassium 4.4 mmol/L (3.5-5.5); Sodium 136 mmol/L (135-145); Total Protein 6.1 g/dL (6.2-8.2)
--- NOTE | 2021-12-20 11:47 | P.PN ---
Subjective Progress Note Date: 12/20/21 HISTORY OF PRESENT ILLNESS: This is a 66-year-old male with a past medical history significant for coronary artery disease status post PCI mid RCA in August 2020, hypertension, hype rlipidemia, diabetes, nicotine dependence, and TIA. Patient follows in the office with Dr. Guillen. We have been asked to see the patient in consultation for chest pain. Patient examined at the bedside. Patient presented to the hospital secondary to chest pain and elevated blood pressure. Patient states his pressure medications were adjusted last week however his blood pressures continue to be elevated at home. He reports his clonidine was increased from 0.2 mg 3 times a day to 0.3 mg 3 times a day. The patient's blood pressure was found to be over 200 systolic. His blood pressure this morning at the time of examination is in the 180s/100s. * EKG reveals sinus mechanism with no signs of acute ischemia. LVH. * Chest xray negative for acute process * Laboratory data: W BC 11.1. Hemoglobin 17.2. Platelet count 302. Sodium 135. Potassium 5.1. BUN 17. Creatinine 1.07. Troponin negative 3. * Current home cardiac medications include lisinopril 20 mg twice a day, clonidine 0.3 mg 3 times a day, metoprolol tartrate 100 mg twice a day, Plavix 75 mg daily, aspirin 81 mg daily * Most recent echocardiogram obtained in September 2021 revealed ejection fraction 55-60%, trace TR, and trace MR * Cardiac catheterization history: August 2020 with stenting of the mid RCA 12/20/2021 Patient examined this morning at the bedside. Patient denies chest pain or pressure. He denies shortness of breath. He is reporting significant pain in his hips this morning. Patient's blood pressure remains elevated this morning. PHYSICAL EXAM: VITAL SIGNS: Reviewed. GENERAL: Well-developed in no acute distress. HEENT: Head is normocephalic. Pupils are equal, round. Sclerae anicteric. Mucous membranes of the mouth are moist. Neck supple. No JVD or thyromegaly LUNGS: Respirations even and unlabored. Lungs essentially clear to auscultation bilaterally. HEART: Regular rate and rhythm. S1 and S2 heard. ABDOMEN: Soft. Nondistended. Nontender. EXTREMITIES: Normal range of motion. No clubbing or cyanosis. Peripheral pulses intact. No lower extremity edema NEUROLOGIC: Awake and alert. Oriented x 3. ASSESSMENT: Chest pain, atypical, troponins negative 3 Hypertension, uncontrolled on admission Coronary artery disease with previous PCI of mid RCA, August 2020 Hyperlipidemia Diabetes History of TIA Nicotine dependence PLAN: Continue current cardiac medications No changes to be made to patient's antihypertensive medication regimen at this time. Per Dr. Sanders, allow time for medication changes to take effect and will re-evaluate in 1 week on an outpatient basis Patient may be discharged home this afternoon from a cardiac standpoint Nurse practitioner note has been reviewed by physician. Signing provider agrees with the documented findings, assessment, and plan of care. Objective - Vital Signs Vital signs: Vital Signs Temp 98.2 F 12/20/21 07:00 Pulse 82 12/20/21 08:00 Resp 16 12/20/21 08:00 BP 201/107 12/20/21 07:00 Pulse Ox 98 12/20/21 07:00 Intake & Output 12/19/21 12/20/21 12/20/21 18:59 06:59 18:59 Weight 93.44 kg Other: Voiding Method Toilet Toilet # Voids 2 - Labs CBC & Chem 7: 12/19/21 05:26 12/20/21 05:26 Labs: Abnormal Lab Results - Last 24 Hours (Table) 12/19/21 12/19/21 12/19/21 Range/Units 12:06 17:19 22:49 Carbon Dioxide (20.0-27.5) mmol/L Glucose (70-110) mg/dL POC Glucose (mg/dL) 271 H 171 H 126 H (75-99) mg/dL AST (14-35) U/L Total Protein (6.2-8.2) g/dL Amylase (23-121) U/L 12/20/21 12/20/21 Range/Units 05:26 08:00 Carbon Dioxide 18.8 L (20.0-27.5) mmol/L Glucose 191 H (70-110) mg/dL POC Glucose (mg/dL) 218 H (75-99) mg/dL AST 13 L (14-35) U/L Total Protein 6.1 L (6.2-8.2) g/dL Amylase 123 H (23-121) U/L
[2021-12-20 12:23] LABS: Glucose,Whole Blood 280 mg/dL (75-99)
--- NOTE | 2021-12-20 14:17 | P.CN ---
Psychiatric Consult - . Consult date: 12/20/21 Consult:: 12/20/21 13:36 IDENTIFYING DATA: This patient is a 66-year-old male who currently lives with his in a house has one daughter. He collects Social Security. REASON FOR REFERRAL: Psychiatry was consulted for "hopelessness, tearful" HISTORY OF PRESENT ILLNESS: The patient presented to the hospital [initially on 12/19. Patient was endorsing chest pain and nausea. Patient was admitted for ACS rule out and cardiology has been following along. Patient has had 3 negative troponins. Patient's chest pain was thought to be atypical. Patient was seen at the bedside today and was sitting in his chair. He appeared to be somewhat irritable with service writer however expressed frustration. He states that he isn't dealing with pain in his hip down to his ankles for about 9 months now. He states that sometimes it wakes him up from his sleep. He claims that he has undergone many tests and has not found the answer. He claims that it started because "they were screwing around with my blood pressure medications" and noted that "Mike Finch" was the one that changed hismedications. He claims that he has been feeling agitated and some mild depression. He states that he has had poor results. He claims that he does not trust medications any longer. Denying any anxiety. He states his sleep is poor approximately 2-3 hours a night. States that his appetite is also poor]. At this time patient denies any suicidal or homical ideations, intent or plan. Patient denies any auditory, visual hallucinations and denies any paranoia or delusions. Patients admits to using occasional marijuana and cigarettes daily. He did state that he has a supportive at home and no real stressors in his life besides his pain. PAST PSYCHIATRIC HISTORY: Patient has a no known psychiatric history. He did claim that he was on an antidepressant in the past and also Xanax and stopped taking it and adamantly believes that he does not need medications. [Patient denies any previous psychiatric hospitalizations.] [Patient denies any psychiatric outpatient follow-up.] [Patient denies any history of suicide attempts in the past.] Past Medical History: Chest Pain / Angina, COPD, CVA/TIA, Diabetes Mellitus, GERD/Reflux, Hearing Disorder / Deafness, Hyperlipidemia, Hypertension, Myocardial Infarction ([place]), Renal Disease Additional Past Medical History / Comment(s): IDDM type II, neuropathy bilateral feet, CVA with no residual, TIA, hydrocephalus with GAS DISTRIBUTION SUPERVISOR shunt, recent admissions for abdominal pain/severe depression, IBS, diverticulitis/bowel resection, hiatal hernia, DJD, occasional cervical pain, migraines, skull/head injury at age 19 with lengthy hospitalization, nephrolithiasis-passed stone on his own, [place] bilaterally. ALLERGIES: as per EMR. CHEMICAL DEPENDENCY HISTORY: as per HPI. FAMILY PSYCHIATRIC/SUBSTANCE USE HISTORY: States that his brother has schizophrenia SOCIAL HISTORY: Patient was born and raised in [place]. 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 He states that he does not have a legal history. He has one daughter. He lives in a house with his . He collects Social Security. MENTAL STATUS EXAM: General Appearance: Patient appears to have one hand, be stated age is alert, irritable at times but attempts to be cooperative. Patient appears to have [fair] hygiene and grooming wearing hospital gown with [fair] eye contact. Behavior: [Patient is calmly lying in bed without any agitated behavior.] mild irritability. Speech: Patient's speech is fluent and nonpressured. Mood/Affect: Patient reports their mood is "[agitated and upset]", affect is congruent Suicidality/Homicidality: Patient denies having any suicidal or homicidal ideation intent or plan. Perceptions: Patient denies any visual hallucinations [and denies any auditory hallucinations] Though content/process: There is no evidence of any delusional thought content and thought process is linear and goal-directed. focused on his pain. Memory and concentration: AOX3, grossly intact for the purposes of this session. Can spell "WORLD" backwards Judgment and insight: fair IMPRESSIONS: Depressive disorder NOS Pain disorder with psychological factors cannabis use disorder mild nicotine dependence PLAN: -At this time patient DOES [NOT] meet criteria for inpatient psychiatric admission. -Would recommend the following medication changes/additions: Store Sales Consultant spoke with patient about medications to help with anxiety and mood and also sleep/appetite however patient adamantly declined. -Can discontinue 1:1 sitter at this time as patient is not currently an imminent threat to themselves] [-harness worker to provide patient with outpatient mental health/psychiatry resources for appropriate follow up upon discharge] [-Communicated plan to patient's nurse] -Psychiatry will sign off at this time -Please contact with any questions. 12/20/21 14:09
--- NOTE | 2021-12-20 14:45 | US ---
EXAMINATION TYPE: US gallbladder DATE OF EXAM: 12/20/2021 COMPARISON: NONE CLINICAL HISTORY: abdominal pain, vomiting. chest pain EXAM MEASUREMENTS: Liver Length: 16.8 cm Gallbladder Wall: 0.2 cm CBD: 0.7 cm Right Kidney: unable to view surrounding bowel gas limits exam Pancreas: not seen due to bowel gas Liver: intercostal imaging due to gas, wnl Gallbladder: comet tail artifact seen within fundus which may represent adenomyomatosis Evidence for sonographic Schaffer's sign: no CBD: wnl Right Kidney: unable to visualize due to bowel gas, lateral cyst = 5.5 x 4.1 x 6.3cm. Cyst is in th e right renal bed region. The kidney itself is poorly visualized due to bowel gas. IMPRESSION: 1. Limitation due to bowel gas. 2. Suggestion of adenomyomatosis of the gallbladder.
--- NOTE | 2021-12-20 15:53 | P.GSCN ---
History of Present Illness Consult date: 12/20/21 History of present illness: CHIEF COMPLAINT: Abdominal pain HISTORY OF PRESENT ILLNESS: This is a 66-year-old male who presented to the hospital with complaints of abdominal pain and chest pain. Patient initially describing epigastric and right upper quadrant abdominal pain. He reports nausea and vomiting. He reports that he has had his abdominal pain and vomiting for at least 5 months. Patient evaluated later in the afternoon and now reports pain in the legs and lower abdomen. Patient reports having bowel movements that are normal. He denies any fevers chills or sweats. He is currently tolerating a regular diet. Does have past history of NE and coronary artery disease with stents. Surgical history includes lysis of adhesions in February 2020. Also hist ory of diverticulitis with small bowel resection. Patient does have a chronic pain syndrome as well as hydrocephalus with OIL PIT ATTENDANT shunt. Patient has been taking Plavix. PAST MEDICAL HISTORY: See list. PAST SURGICAL HISTORY: See list. MEDICATIONS: See list. ALLERGIES: See list. SOCIAL HISTORY: No illicit drug use. REVIEW OF SYSTEMS: CONSTITUTIONAL: Denies fever or chills. HEENT: Denies blurred vision, vision changes, or eye pain. Denies hemoptysis ENDOCRINE: Denies heat or cold intolerance. CARDIOVASCULAR: Denies chest pain or pressure. RESPIRATORY: No shortness of breath. GASTROINTESTINAL: Denies abdominal pain. Denies nausea or vomiting. NEURO: Denies history of seizures. PSYCH: No depression or suicidal ideation HEMATOLOGIC: Denies bleeding disorders. LYMPHATIC: The patient denies any lumps and bumps around the neck. GENITOURINARY: Denies any blood in urine or increased urinary frequency. MUSCULOSKELETAL: Denies myalgias. Denies joint swelling. Denies decreased range of motion beyond patients baseline. SKIN: Denies pruitis. Denies rash. PHYSICAL EXAM: VITAL SIGNS: Reviewed GENERAL: Well-developed in no acute distress. HEENT: No sclera icterus. Extraocular movements grossly intact. Moist buccal mucosa. Head is atraumatic, normocephalic. Hears conversational speech. No nasal drainage. NECK: Supple without lymphadenopathy. CHEST: Non-labored respirations and equal bilateral excursions. CARDIOVASCULAR: Palpable 2+ radial pulses. ABDOMEN: Soft. Nondistended. Tenderness to palpation epigastric area MUSCULOSKELETAL: No clubbing or cyanosis. NEUROLOGIC: No focal or lateralizing signs. Cranial nerves II through XII grossly intact. PSYCH: Appropriate affect. Alert and oriented to person, place and time. SKIN: Well perfused. Good skin turgor. LABORATORY DATA: WBC is 11.1 hemoglobin 17.2 platelets 30 to INR 1.1 Sodium 136 potassium 4.4 creatinine 1.2 LFTs normal Lipase 372 down to 48 IMAGING: ASSESSMENT: 1. Abdominal pain with nausea and vomiting 2. Atypical Chest pain evaluated cardiology 3. Diabetes mellitus 4. Coronary artery disease with cardiac stent 5. Bilateral lower extremity pain PLAN: -Gallbladder ultrasound and HIDA scan ordered to rule out any gallbladder disease or dysfunction -Further recommendations will be forthcoming per surgeon -Recommend low fat diet -Continue supportive care -Agree with orthopedic consult regarding back pain and leg pain Thank you for this consultation Physician Planishing Press Operator note has been reviewed by physician. Signing provider agrees with the documented findings, assessment, and plan of care. CHIEF COMPLAINT: Abdominal pain HISTORY OF PRESENT ILLNESS: The patient is a 66 year old male with history of multiple admissions for abdominal pain and pain along the lower legs. "I ate [employer] sandwich and fries" prior to developing his abdominal pain yesterday. He has had multiple visits to the ER including recent cardiac work-up for chest pain. He has hsitory of multiple abdominal surgeries. He had lysis of adhesions in 2019. He reports pain has been intermittent and crampy in nature radiating to the bilateral upper abdomen almost 5 months. General surgery is consulted for intractable abdominal pain. PAST MEDICAL HISTORY: See list and reviewed. PAST SURGICAL HISTORY: See list and reviewed. MEDICATIONS: See list and reviewed. ALLERGIES: See list and reviewed. SOCIAL HISTORY: See list and reviewed. FAMILY HISTORY: See list and reviewed. REVIEW OF ORGAN SYSTEMS: CONSTITUTIONAL: No fevers or chills. EYES: Denies any trouble with vision. Wears glasses. HEENT: Has difficulties with hearing. No nosebleeds. RESPIRATORY: Has COPD. CARDIOVASCULAR: History of chest pain, palpitations, or recent heart attacks. Has angina. Has hyperlipidemia. Has hypertensive heart disease with ischemic cardiomyopathy. History of myocardial infarction. Has cardiac stent. GASTROINTESTINAL: Denies fatty food intolerance. Has change in bowel habits and gas bloat. Reports gastroesophageal reflux disease. History of diverticulitis and bowel resection. GENITOURINARY: History of kidney stones. NEUROLOGICAL: Has numbness or tingling along the distal extremities. Has headaches. History of CVA/TIA. Has OIL PIT ATTENDANT shunt. Has migraines. MUSCULOSKELETAL: Has back pain, stiffness or joint arthritis. Previous amputation of the hand. History of cervical spine surgery. Traumatic amputation of left hand. SKIN: No current skin cancer. No rash. PSYCHIATRIC: Has current depression. ENDOCRINE: Denies current thyroid disorders. Has blood sugar glucose intolerance with diabetes type II, insulin dependent. HEME/LYMPHATIC: Denies any lumps and bumps around the neck. No recent deep venous thrombosis. ALLERGY/IMMUNOLOGY: No immunoglobulin therapy. No immune deficiencies. BREAST: Denies current breast lumps, pain or nipple discharge. PHYSICAL EXAM: VITALS: Reviewed CONSTITUTIONAL: Well developed and in no acute distress. EYES: Conjuctivae without sclera icterus. Pupils are equally round and reactive to light. Extraocular movements grossly intact. HEAD, EARS, NOSE, THROAT: Moist buccal mucosa. Head is atraumatic, normocephalic. Hears conversational speech. No nasal drainage. NECK: Supple. No JV distention. No thyroidomegaly. RESPIRATORY: Non-labored respirations and equal bilateral excursions. No gross wheezes. CARDIOVASCULAR: Regular rate and rhythm. Palpable 2+ radial pulses. ABDOMEN: Mild tenderness right upper quadrant. LYMPH: No neck lymphadenopathy. MUSCULOSKELETAL: Nail and fingers with good capillary refill. Amputation of hand left noted SKIN: Warm and well perfused with good skin turgor. NEUROLOGIC: Cranial nerves II through XII grossly intact. Sensation upper and extremities intact. No focal or lateralizing signs. PSYCH: Flat affect. Alert and oriented to person, place and time. Displays appropriate insight. CLINCAL LABS: Reviewed. WBC on admission elevated 11.1. LFTs without elevation EKG: Reviewed. Right atrial enlargement. Non-specific ST and T wave abnormality. LVH variant STUDIES: Chest xray reviewed without free air underneath diaphragm. No pneumonia. This is my independent intrepretation. ASSESSMENT: 1. Right upper quadrant abdominal pain 2. Abnormal EKG 3. Lower extremity neuropathy 4. Type II diabetes mellitus, insulin dependent PLAN: 1. Recommend ultrasound and HIDA scan as symptoms consistent with gallbladder disorder. 2. Low fat diet advised. Thank you for this kind consultation. ADDENDUM: Ultrasound independently reviewed with gallbladder sludge. This is my independe nt interpretation. HIDA scan report reviewed with ejection fraction 5% consistent with severe bilia ry dyskinesia. Past Medical History Past Medical History: Chest Pain / Angina, COPD, CVA/TIA, Diabetes Mellitus, GERD/Reflux, Hearing Disorder / Deafness, Hyperlipidemia, Hypertension, Myocardial Infarction ([place]), Renal Disease Additional Past Medical History / Comment(s): IDDM type II, neuropathy bilateral feet, CVA with no residual, TIA, hydrocephalus with OIL PIT ATTENDANT shunt, recent admissions for abdominal pain/severe depression, IBS, diverticulitis/bowel resection, hiatal hernia, DJD, occasional cervical pain, migraines, skull/head injury at age 19 with lengthy hospitalization, nephrolithiasis-passed stone on his own, [place] bilaterally. Last Myocardial Infarction Date:: 2020 History of Any Multi-Drug Resistant Organisms: None Reported Past Surgical History: Back Surgery, Bowel Resection, Heart Catheterization With Stent, Orthopedic Surgery Additional Past Surgical History / Comment(s): 02/18/20 Robot assisted laparoscopy/extensive lysis of adhesions, OIL PIT ATTENDANT shunt, 2019 R elbow tendon surgery, L knee arthroscopy, L hand amp d/t industrial accident, cervical fusion, bowel resection d/t diverticulitis, EGD, colonoscopy, hemorrhoidectomy, Heart cath with 2 stents on 08/26/2020 Past Anesthesia/Blood Transfusion Reactions: No Reported Reaction Date of Last Stent Placement:: 2020 Past Psychological History: Anxiety, Depression Additional Psychological History / Comment(s): Pt resides with his spouse. He is independent. He drives. Pt states his depression/anxiety which had increased over past several months with suicidal thoughts/plans but states this is no longer a problem for him. He states his depression is not as severe as it had been. Smoking Status: Current every day smoker Past Alcohol Use History: None Reported Additional Past Alcohol Use History / Comment(s): Pt started smoking in 1970 and is a ppd smoker. Pt has not drank alcohol in 30 yrs-he used to drink 1/5 a day. Past Drug Use History: Marijuana Additional Drug Use History / Comment(s): occasional use - Past Family History Mother Family Medical History: Cancer Additional Family Medical History / Comment(s): kidney Father Family Medical History: Cancer Additional Family Medical History / Comment(s): pancreatic Medications and Allergies Home Medications Medication Instructions Recorded Confirmed Type lisinopriL [Zestril] 20 mg PO BID 11/24/15 12/19/21 History Insulin Aspart [NovoLOG Flexpen] 12 units SQ AC-LUNCH 12/15/18 12/19/21 History Insulin Aspart [NovoLOG Flexpen] 22 units SQ AC-BID@0900,1800 12/15/18 12/19/21 History Aspirin EC [Ecotrin Low Dose] 81 mg PO DAILY 02/15/20 12/19/21 History Nitroglycerin Sl Tabs [Nitrostat] 0.4 mg SL Q5M PRN 08/18/20 12/19/21 History Clopidogrel [Plavix] 75 mg PO DAILY #30 tab 08/20/20 12/19/21 Rx Metoprolol Tartrate [Lopressor] 100 mg PO BID #60 tab 08/20/20 12/19/21 Rx Insulin Detemir [Levemir Flextouch] 55 units SQ DAILY 01/09/21 12/19/21 History Famotidine [Pepcid AC] 10 mg PO BID 7 Days #14 tablet 10/11/21 12/19/21 Rx Mag Hydrox/Al Hydrox/Simeth 30 ml PO BID PRN 7 Days #500 ml 10/11/21 12/19/21 Rx [Maalox] Cholecalciferol (Vitamin D3) 75 mcg PO DAILY 11/08/21 12/19/21 History [Vitamin D3 (3000 Iu)] Docusate [Colace] 100 mg PO HS 11/08/21 12/19/21 History cloNIDine HCL [Catapres] 0.3 mg PO TID 12/19/21 12/19/21 History Allergies Allergy/AdvReac Type Severity Reaction Status Date / Time blue dye Allergy Severe Rash/Hives Verified 12/19/21 07:20 codeine Allergy Itching Verified 12/19/21 07:20 naproxen sodium [From Aleve] Allergy Rash/Hives Verified 12/19/21 07:20 ondansetron [From Zofran] Allergy Rash/Hives Verified 12/19/21 07:20 gabapentin AdvReac Abdominal Verified 12/19/21 07:20 Pain naloxegol [From Movantik] AdvReac Nausea & Verified 12/19/21 07:20 Vomiting Surgical - Exam Vital Signs Temp Pulse Resp BP Pulse Ox 98.5 F 100 20 221/119 99 12/19/21 05:02 12/19/21 05:02 12/19/21 05:02 12/19/21 05:02 12/19/21 05:02 Results - Labs 12/19/21 05:26 12/20/21 05:26 Abnormal Lab Results - Last 24 Hours (Table) 12/19/21 12/19/21 12/19/21 Range/Units 12:06 17:19 22:49 POC Glucose (mg/dL) 271 H 171 H 126 H (75-99) mg/dL 12/20/21 Range/Units 08:00 POC Glucose (mg/dL) 218 H (75-99) mg/dL
--- NOTE | 2021-12-20 16:10 | NM ---
EXAMINATION TYPE: NM hepatobiliary w CCK DATE OF EXAM: 12/20/2021 COMPARISON: NONE INDICATION: Abdomen pain and vomiting TECHNIQUE: After the intravenous administration of 4.8 mCi Tc 99m Mebrofenin hepatobiliary scintigrap hy is performed. Images were obtained immediately post injection. FINDINGS: There is prompt uptake and excretion of radiotracer by the liver. Extrahepatic ducts are identified at T10 minutes. The gallbladder is visualized within 14 minutes. Small bowel activity is noted within 20 to minutes. At one hour CCK was administered, patient was injected with 1.9 mcg of Kinevac, and gallbladder eject ion fraction is calculated at 5 %, which is very low. (Normal >35% and <80%.). IMPRESSION: 1. Biliary hypokinesia and ejection fraction 5%. Normal greater than 35%.
[2021-12-20 17:08] LABS: Glucose,Whole Blood 84 mg/dL (75-99)
--- NOTE | 2021-12-20 17:33 | P.PN ---
Progress Note - Text Progress Note Date: 12/20/21 This is a pleasant 66 year old male who presents to this hospital with complaints of left sided chest pain described as a tight squeeze which than progressed into a stabbing sensation later on in the evening yesterday. Patient reports radiation into the jaw and arm, which has currently subsided. He took tylenol at home for the pain. Blood pressure at home was too high to register on his machine. When he presented to the Blood pressure was found to be 220/110s. Patient reports associated dizziness as well. He has been short of breath with non productive cough. Patient also states he is having abdominal pain lower quadrant feels like a tight band which he states is constant as well as nausea and vomiting late in the evening when lying flat to sleep, this has been ongoing for the last 9 months. Patient was recently evaluated in the 4 times in the last couple months for nausea and vomiting. He had an abdominal ultrasound completed in October of 2021 showing cystic lesion right kidney, and abdominal pelvis CT showing no acute abnormality within the abdomen and pelvis. States he was following with Dr Mercedes outpatient and is due for colonoscopy, was also told he had a hiatal hernia in the past. Chronic conditions include COPD, TIA, CVA with no residual,, diabetes mellitus type 2, hypertension, hyperlipidemia, renal disease, GERD, heart cath with stent most recent in August 2020, myocardial infarction, skull/head injury at age 19 with lengthy hospitalization, hydrocephalus with SEARCH ENGINE [employer]IZATION [employer]SULTANT shunt. Patient also had left-hand amputation, bowel resection secondary to diverticulitis. Reports anxiety/depression, there will history of alcohol use has not drink in 30 years, was a 1 pack per day smoker he has cut down to 5 cigars per day and was planning on quitting this upcoming weekend. Occasional marijuana use. Pt reports he has established care with Dr Gutierrez and was supposed to see today, Dr Evans will resume care tomorrow. December 20: Patient was seen by psychiatry today. Diagnosed with depressive disorder. Recommended antidepressant/and anxiety medications. Patient declined. Patient also has a SEARCH ENGINE [employer]ATION CONS[employer]ANT shunt for increased headaches in the past. Patient states she's been also vomiting for 3 days. Has been having upper abdominal pain going across go to 3 months. Sometimes is worse when he lies down. Not necessarily related to eating. HIDA scan was ordered this morning. Patient also complains of pain in the lower sacral area and the pain goes down both the legs when he walks. MRI of the area was ordered. Orthopedic spine also consulted. Patient did vomit last night. Blood pressures been running high. Start Catapres 0.2 mg 3 times a day. Active Medications Hydrocodone Bitart/Acetaminophen (Hydrocodone/Apap 7.5-325mg 1 Each Tab) 1 each PO Q6HR PRN PRN Reason: Pain Last Admin: 12/20/21 16:30 Dose: 1 each Documented by: Al Hydroxide/Mg Hydroxide (Mag Hydrox/Al Hydrox/Simeth 30 Ml Cup) 30 ml PO BID PRN PRN Reason: Dyspepsia Amlodipine Besylate (Amlodipine 10 Mg Tab) 10 mg PO DAILY [facility] Last Admin: 12/20/21 07:23 Dose: 10 mg Documented by: Aspirin (Aspirin 81 Mg) 81 mg PO DAILY [facility] Last Admin: 12/20/21 08:27 Dose: 81 mg Documented by: Carvedilol (Carvedilol 12.5 Mg Tab) 25 mg PO BID-W/MEALS [facility] Last Admin: 12/20/21 05:00 Dose: 25 mg Documented by: Cholecalciferol (Cholecalciferol 25 Mcg (1000 Iu) Tablet) 75 mcg PO DAILY [facility] Last Admin: 12/20/21 08:27 Dose: 75 mcg Documented by: Clopidogrel Bisulfate (Clopidogrel 75 Mg Tab) 75 mg PO DAILY [facility] Last Admin: 12/20/21 08:27 Dose: 75 mg Documented by: Dicyclomine HCl (Dicyclomine 10 Mg Cap) 10 mg PO QID PRN PRN Reason: cramping Last Admin: 12/19/21 18:45 Dose: 10 mg Documented by: Docusate Sodium (Docusate 100 Mg Cap) 100 mg PO HS [facility] Last Admin: 12/19/21 20:42 Dose: 100 mg Documented by: Insulin Aspart (Insulin Aspart (Novolog) 100 Unit/Ml Vial) 22 unit SQ AC- BID@0900,1800 [facility] Last Admin: 12/20/21 08:27 Dose: 22 unit Documented by: Insulin Aspart (Insulin Aspart (Novolog) 100 Unit/Ml Vial) 12 unit SQ AC-LUNCH [facility] Last Admin: 12/20/21 14:05 Dose: 12 unit Documented by: Insulin Detemir (Insulin Detemir (Levemir) 100 Unit/Ml Syr) 55 unit SQ DAILY [facility] Last Admin: 12/20/21 08:34 Dose: 55 unit Documented by: Nitroglycerin (Nitroglycerin Sl Tabs 0.4 Mg Tab) 0.4 mg SUBLINGUAL Q5M PRN PRN Reason: Chest Pain Pantoprazole Sodium (Pantoprazole 40 Mg/10 Ml Vial) 40 mg IVP BID [facility] Last Admin: 12/20/21 08:26 Dose: 40 mg Documented by: Valsartan (Valsartan 80 Mg Tab) 80 mg PO BID [facility] Last Admin: 12/20/21 08:26 Dose: 80 mg Documented by: INVESTIGATIONS, reviewed in the clinical context: December 20: Sodium 136 potassium 4.4 creatinine 1.2 LFTs normal. Lipase 48 HIDA scan: Biliary hypokinesia. EF 5%. Ultrasound gallbladder: Suggestion of aadenomyomatosis of the gallbladder white count 11.1, hematocrit 55.3, neutrophils 8.4, sodium 135, CO2 21, glucose 253, troponin level negative 2, amylase 118, lipase 372. Chest x-ray showing no acute cardiopulmonary disease. EKG showing sinus rhythm, heart rate 92, QT interval 398 Previous studies: 2-D echo from September 2021: Moderate concentric LVH. EF 55-60%. On examination: VITAL SIGNS: [98.2, 82, 16, 201/107, 98% room air] GENERAL APPEARANCE: Average build. Lying in bed, not in distress. HEENT: Normal external appearance of nose and ear. Oral cavity normal EYES: Pupils equal. Conjunctiva normal. NECK: JVD not raised. Mass not palpable. RESPIRATORY: Respiratory effort normal. Lungs decreased breath sound. CARDIOVASCULAR: First and second sounds normal. No edema. EXTREMITY: Left below elbow amputation ABDOMEN: Soft. Liver and spleen not palpable. No tenderness. No mass palpable. PSYCHIATRY: Alert and oriented x3. Mood and affect anxious Assessment and Plan -Chest pain, possibly from uncontrolled hypertension. Seen by cardiology. Blood pressure controlled. No further testing at this point, -Essential Hypertension, uncontrolled Coreg 25 mg twice a day. Diovan 80 mg twice a day. Start Catapres 0.2 mg 3 times a day -Chronic upper abdominal pain present for about 3 months. with associated nausea vomiting HIDA scan showing EF of less than 5%. Leukocytosis reactive -Diabetes mellitus type II chronically on insulin with hyperglycemia Levemir 55 units daily. NovoLog with meals -Coronary artery disease status post stenting Aspirin, Coreg, -Hydrocephalus history of SEARCH [employer]INE [employer]ANT shunt. -Peripheral neuropathy secondary to diabetes especially in the feet -Hyperlipidemia - COPD, and a smoker Albuterol when necessary -GERD Pepcid 10 mg twice a day -Anxiety/Depression Seen by Dr. Walsh from psychiatry. 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 Follow with surgery. MRI of the lumbar spine sacral ordered including consultation to orthopedic spine. Patient seen by psychiatry but declined to take any medications. Care was discussed in detail with the patient. Blood pressure uncontrolled. Add Catapres 0.2 mg 3 times a day. Spent about 45 minutes with over 25 minutes of discussion. Given the complexity and severity of patient's condition expect the patient to be in the hospital at least for 2 overnights
[2021-12-20 17:48] LABS: Glucose,Whole Blood 67 mg/dL (75-99)
[2021-12-20 18:03] LABS: Glucose,Whole Blood 72 mg/dL (75-99)
[2021-12-20] MEDS: cloNIDine HCL 0.2 MG TAB PO SCH ×2 (18:31→23:51)
[2021-12-20] MEDS: NICOTINE 21MG/24HR PATCH TRANSDERM SCH (18:31)
--- NOTE | 2021-12-20 19:02 | P.CNOR ---
History of Present Illness - [facility] Consult date: 12/20/21 Requesting physician: Subhash Evans Consult reason: low back pain, other (Bilateral lower extremity radiculopathy) History of present illness: Patient is a very pleasant 66-year-old male who is well-known to our practice who is seen and examined the bedside in regards to his lumbar spine. He states previously he was not experiencing significant difficulty with his lumbar spine until the past couple months. He states of the past 2 months he has been experiencing increased back pain at the lumbosacral junction radiating across his lumbar spine, down the posterior thighs and calves towards the feet bilaterally. He states the pain can be greater on the left or the right depending on the day. He does have a history of neuropathy and states he is unsure if the pain radiates into his feet. He states he does feel like his legs will give out on him. He is fallen a couple times. He denies any injury to cause the initial exacerbation of symptoms. He does admit to chronic skin changes over the bilateral lower extremities. He initially presented to [facility] yesterday for further evaluation as he was experiencing chest pain with pain radiating down his left upper extremity. He has been evaluated by cardiology with negative troponins. He does have a history of 2 cardiac stents being placed in August 2020. During his admission he is being e valuated for multiple other medical diagnoses. He is currently undergoing evaluation with general surgery to evaluate his gallbladder. He has been experiencing some lower quadrant abdominal pain. He was scheduled for nuclear medicine hepato-mobility study and ultrasound imaging today. He is also had significant difficulty with hypertension. His blood pressure most recently was 203/117 of the left arm and 214/116 at the right arm. He also had evaluation by psychology for tearfulness and hopelessness. He is pleasant at the bedside during my examination and answering questions appropriately. He does have a history of previous surgical intervention of his cervical spine. He is status post anterior cervical decompression and fusion at C5-6 and C6-7 performed on 09/11/2017. He does not have any complaints in this regard. He has a history of left hand amputation, bowel resection, COPD, history of TIA, type 2 diabetes mellitus, hyperlipidemia, and renal disease. MRI imaging of the lumbar spine and sacrum has been ordered by medicine. It is scheduled to be performed tomorrow. He has had x-ray imaging of the lumbar spine. Past Medical History Past Medical History: Chest Pain / Angina, COPD, CVA/TIA, Diabetes Mellitus, GERD/Reflux, Hearing Disorder / Deafness, Hyperlipidemia, Hypertension, Myocardial Infarction (PR), Renal Disease Additional Past Medical History / Comment(s): IDDM type II, neuropathy bilateral feet, CVA with no residual, TIA, hydrocephalus with ALLEY TENDER shunt, recent admissions for abdominal pain/severe depression, IBS, diverticulitis/bowel resection, hiatal hernia, DJD, occasional cervical pain, migraines, skull/head injury at age 19 with lengthy hospitalization, nephrolithiasis-passed stone on his own, KAKE bilaterally. Last Myocardial Infarction Date:: 2020 History of Any Multi-Drug Resistant Organisms: None Reported Past Surgical History: Back Surgery, Bowel Resection, Heart Catheterization With Stent, Orthopedic Surgery Additional Past Surgical History / Comment(s): 02/18/20 Robot assisted laparoscopy/extensive lysis of adhesions, ALLEY TENDER shunt, 2019 R elbow tendon surgery, L knee arthroscopy, L hand amp d/t industrial accident, cervical fusion, bowel resection d/t diverticulitis, EGD, colonoscopy, hemorrhoidectomy, Heart cath with 2 stents on 08/26/2020 Past Anesthesia/Blood Transfusion Reactions: No Reported Reaction Date of Last Stent Placement:: 2020 Past Psychological History: Anxiety, Depression Additional Psychological History / Comment(s): Pt resides with his spouse. He is independent. He drives. Pt states his depression/anxiety which had increased over past several months with suicidal thoughts/plans but states this is no longer a problem for him. He states his depression is not as severe as it had been. Smoking Status: Current every day smoker Past Alcohol Use History: None Reported Additional Past Alcohol Use History / Comment(s): Pt started smoking in 1970 and is a ppd smoker. Pt has not drank alcohol in 30 yrs-he used to drink 1/5 a day. Past Drug Use History: Marijuana Additional Drug Use History / Comment(s): occasional use - Past Family History Mother Family Medical History: Cancer Additional Family Medical History / Comment(s): kidney Father Family Medical History: Cancer Additional Family Medical History / Comment(s): pancreatic Medications and Allergies Home Medications Medication Instructions Recorded Confirmed Type lisinopriL [Zestril] 20 mg PO BID 11/24/15 12/19/21 History Insulin Aspart [NovoLOG Flexpen] 12 units SQ AC-LUNCH 12/15/18 12/19/21 History Insulin Aspart [NovoLOG Flexpen] 22 units SQ AC-BID@0900,1800 12/15/18 12/19/21 History Aspirin EC [Ecotrin Low Dose] 81 mg PO DAILY 02/15/20 12/19/21 History Nitroglycerin Sl Tabs [Nitrostat] 0.4 mg SL Q5M PRN 08/18/20 12/19/21 History Clopidogrel [Plavix] 75 mg PO DAILY #30 tab 08/20/20 12/19/21 Rx Metoprolol Tartrate [Lopressor] 100 mg PO BID #60 tab 08/20/20 12/19/21 Rx Insulin Detemir [Levemir Flextouch] 55 units SQ DAILY 01/09/21 12/19/21 History Famotidine [Pepcid AC] 10 mg PO BID 7 Days #14 tablet 10/11/21 12/19/21 Rx Mag Hydrox/Al Hydrox/Simeth 30 ml PO BID PRN 7 Days #500 ml 10/11/21 12/19/21 Rx [Maalox] Cholecalciferol (Vitamin D3) 75 mcg PO DAILY 11/08/21 12/19/21 History [Vitamin D3 (3000 Iu)] Docusate [Colace] 100 mg PO HS 11/08/21 12/19/21 History cloNIDine HCL [Catapres] 0.3 mg PO TID 12/19/21 12/19/21 History Allergies Allergy/AdvReac Type Severity Reaction Status Date / Time blue dye Allergy Severe Rash/Hives Verified 12/19/21 07:20 codeine Allergy Itching Verified 12/19/21 07:20 naproxen sodium [From Aleve] Allergy Rash/Hives Verified 12/19/21 07:20 ondansetron [From Zofran] Allergy Rash/Hives Verified 12/19/21 07:20 gabapentin AdvReac Abdominal Verified 12/19/21 07:20 Pain naloxegol [From Movantik] AdvReac Nausea & Verified 12/19/21 07:20 Vomiting Physical Examination Physical exam: Patient is awake, alert, and oriented 3 Vital signs stable Good chest excursion with deep inspiration and expiration Examination of lumbar spine reveals skin is intact with no abrasions, lacerations, or bruises; no erythema, purulence or signs of infection Dorsiflexion, plantarflexion, and extensor hallucis longus positive sustained bilaterally Lower extremity strength 5/5 bilaterally Patellar reflex 1+ bilaterally No lower extremity hyperreflexia bilaterally Straight leg test negative bilateral lower extremities Negative Lasegue's test bilaterally No signs or symptoms of DVT; no calf pain No pain with internal and external rotation of the hips bilaterally Neurovascularly intact Evidence of some skin changes over the bilateral lower extremities Results Pertinent studies: X-rays of the lumbar spine taken on 12/20/2021: L4-5 slight spondylolisthesis and spondylosis; no evidence of vertebral body compression fracture; no evidence of significant degenerative disc disease - Labs Labs: Abnormal Lab Results - Last 24 Hours (Table) 12/19/21 12/20/21 12/20/21 Range/Units 22:49 05:26 08:00 Carbon Dioxide 18.8 L (20.0-27.5) mmol/L Glucose 191 H (70-110) mg/dL POC Glucose (mg/dL) 126 H 218 H (75-99) mg/dL AST 13 L (14-35) U/L Total Protein 6.1 L (6.2-8.2) g/dL Amylase 123 H (23-121) U/L 12/20/21 12/20/21 12/20/21 Range/Units 12:22 17:46 18:02 Carbon Dioxide (20.0-27.5) mmol/L Glucose (70-110) mg/dL POC Glucose (mg/dL) 280 H 67 L 72 L (75-99) mg/dL AST (14-35) U/L Total Protein (6.2-8.2) g/dL Amylase (23-121) U/L H & H 12/19/21 Range/Units 05:26 Hgb 17.2 (13.0-17.5) gm/dL Hct 55.3 H (39.0-53.0) % Coagulation 12/19/21 Range/Units 05:26 INR 1.1 (<1.2) Result Diagrams: 12/19/21 05:26 12/20/21 05:26 Assessment and Plan Assessment: Assessment: Acute low back pain over the past 2 months without specific injury Bilateral lower extremity radiculopathy L4-5 slight spondylolisthesis Lumbar spondylosis Lower extremity neuropathy History of multiple falls recently Abdominal pain Hypertension Type 2 diabetes mellitus Hyperlipidemia Renal disease COPD History of left hand amputation History of bowel resection History of TIA History of anterior cervical decompression and fusion (1) Low back pain Current Visit: Yes Status: Acute Code(s): M54.50 - LOW BACK PAIN, UNSPECI FIED SNOMED Code(s): 172868818 (2) Radiculopathy with lower extremity symptoms Current Visit: Yes Status: Acute Code(s): M54.10 - RADICULOPATHY, SITE UNSPECIFIED SNOMED Code(s): 28679477 (3) Lumbar spondylosis Current Visit: Yes Status: Acute Code(s): M47.816 - SPONDYLOSIS W/O MYELOPATHY OR RADICULOPATHY, LUMBAR REGION SNOMED Code(s): 452019329 (4) Spondylolisthesis, lumbar region Current Visit: Yes Status: Acute Code(s): M43.16 - SPONDYLOLISTHESIS, LUMBAR REGION SNOMED Code(s): 921182181960962 (5) Multiple falls Current Visit: Yes Status: Acute Code(s): R29.6 - REPEATED FALLS SNOMED Code(s): 287699388 (6) Neuropathy Current Visit: Yes Status: Acute Code(s): G62.9 - POLYNEUROPATHY, UNSPECIFIED SNOMED Code(s): 988394974 (7) Renal disease Current Visit: Yes Status: Acute Code(s): N28.9 - DISORDER OF KIDNEY AND URETER, UNSPECIFIED SNOMED Code(s): 56827510 (8) COPD (chronic obstructive pulmonary disease) Current Visit: Yes Status: Acute Code(s): J44.9 - CHRONIC OBSTRUCTIVE PULMONARY DISEASE, UNSPECIFIED SNOMED Code(s): 88928810 (9) History of TIA (transient ischemic attack) Current Visit: Yes Status: Acute Code(s): Z86.73 - PRSNL HX OF TIA (TIA), AND CEREB INFRC W/O RESID DEFICITS SNOMED Code(s): 366859676 (10) History of bowel resection Current Visit: Yes Status: Acute Code(s): Z90.49 - ACQUIRED ABSENCE OF OTHER SPECIFIED PARTS OF DIGESTIVE TRACT SNOMED Code(s): 314587019 (11) History of cervical spinal arthrodesis Current Visit: Yes Status: Acute Code(s): Z98.1 - ARTHRODESIS STATUS SNOMED Code(s): 1545120175315 (12) History of amputation of left hand Current Visit: Yes Status: Acute Code(s): Z89.112 - ACQUIRED ABSENCE OF LEFT HAND SNOMED Code(s): 247274459 (13) Hypertension Current Visit: Yes Status: Acute Code(s): I10 - ESSENTIAL (PRIMARY) HYPERTENSION SNOMED Code(s): 45722308 (14) Abdominal pain Current Visit: No Status: Acute Code(s): R10.9 - UNSPECIFIED ABDOMINAL PAIN SNOMED Code(s): 34679110 Plan: Plan: 1. Patient has been experiencing increased low back pain with bilateral lower extremity radiculopathy without specific weakness but states his legs will give out on him over the past 2 months without initial injury. He has fallen a couple times due to his lower extremities feeling like they will give out on him. He states the pain radiates into both legs and can be severe in either leg depending on the time. He's had difficulty with exacerbation of pain while lying down for longer than an hour. X-ray imaging shows L4-5 slight spondylolisthesis and some spondylosis without significant degenerative disc disease. Overall, he does not have significant degenerative disc disease throughout his lumbar spine on x-ray imaging. Given the severity of his symptom s and recent falls due to his lower extremities, MRI imaging has been ordered by medicine. This is scheduled to be performed tomorrow. We did discuss following the MRI will plan reviewed his imaging and to discuss further treatment options with him. We would initially plan to have him work through conservative treatment options. He is experiencing other significant medical diagnoses including significantly elevated hypertension. He is also experiencing right lower quadrant abdominal pain and is undergoing further evaluation with general surgery regards to his gallbladder. He does have active full range of motion bilateral lower extremities without loss of motor function of the bilateral lower extremities. We did discuss based on his imaging may plan to have him work in formal physical therapy and/or treatment evaluation with pain management. He does feel this is a good plan of care. 2. Patient will continue be seen examined and multiple other medical providers including medicine and general surgery Time with Patient: Greater than 30 (Including obtaining history, physical examination, reviewing of imaging, and dictation.)
[2021-12-20] MEDS: DOCUSATE 100 MG CAP PO SCH (20:34)
[2021-12-20 20:50] LABS: Glucose,Whole Blood 256 mg/dL (75-99)
--- NOTE | 2021-12-20 22:25 | XR ---
EXAMINATION TYPE: XR lumbar spine 2 or 3V DATE OF EXAM: 12/20/2021 COMPARISON: None HISTORY: Low back pain TECHNIQUE: Three-view lumbar spine FINDINGS: There are 5 lumbar-type vertebral bodies. Pedicles are intact. Disc heights are preserved. Vertebral body heights are preserved. Alignment is normal. IMPRESSION: 1. No acute osseous abnormality lumbar spine
[2021-12-21] MEDS: HYDROcodone/APAP 7.5-325MG 1 EACH TAB PO PRN ×2 (05:32→12:25)
[2021-12-21 07:00] LABS: Glucose,Whole Blood 224 mg/dL (75-99)
[2021-12-21] MEDS: NICOTINE 21MG/24HR PATCH TRANSDERM SCH (08:06)
[2021-12-21] MEDS: PANTOPRAZOLE 40 MG/10 ML VIAL IVP SCH (08:06)
[2021-12-21] MEDS: INSULIN DETEMIR (LEVEMIR) 100 UNIT/ML SYR SQ SCH (08:06)
[2021-12-21] MEDS: VALSARTAN 80 MG TAB PO SCH (08:07)
[2021-12-21] MEDS: amLODIPine 10 MG TAB PO SCH (08:07)
[2021-12-21] MEDS: CLOPIDOGREL 75 MG TAB PO SCH (08:07)
[2021-12-21] MEDS: CHOLECALCIFEROL 25 MCG (1000 IU) TABLET PO SCH (08:07)
[2021-12-21] MEDS: ASPIRIN 81 MG PO SCH (08:07)
[2021-12-21] MEDS: carvediloL 12.5 MG TAB PO SCH (08:07)
[2021-12-21] MEDS: cloNIDine HCL 0.2 MG TAB PO SCH (08:07)
[2021-12-21] MEDS: INSULIN ASPART (NovoLOG) 100 UNIT/ML VIAL SQ SCH ×2 (08:08→13:12)
--- NOTE | 2021-12-21 11:02 | MR ---
EXAMINATION TYPE: MR lumbar spine wo con DATE OF EXAM: 12/21/2021 COMPARISON: NONE HISTORY: Lower extremity pain TECHNIQUE: T1 and T2 axial and sagittal images of the lumbar spine are submitted. FINDINGS: There is no abnormal signal seen within the visualized spinal cord or paraspinal soft tissu es. There is loss of disc signal at all levels disc desiccation and mild loss of disc space compatibl e with mild multilevel generative disc disease. Simple appearing right renal cyst. Ectasia of the aor ta measuring 2.6 cm. Incidental note is made of discogenic marrow changes and degenerative disc disea se lower thoracic spine. At L1-2 there is no disc herniation or canal stenosis. No foraminal encroachment. At L2-3 there is no disc herniation or canal stenosis. No foraminal encroachment. At L3-4 there is mild hypertrophic change of the facets. Minimal central disc bulging but no canal st enosis or foraminal encroachment At L4-5 there is grade 1 anterolisthesis of advanced facet arthropathy and ligamentum flavum hypertro phy. Circumferential disc bulging results in moderate bilateral foraminal encroachment and canal sten osis At L5-S1 there is advanced facet arthropathy. No disc herniation or canal stenosis. Neural foramina a re patent. Small annular tear without discrete herniation. IMPRESSION: 1. A grade 1 anterolisthesis of L4 on L5 appears degenerative with advanced facet arthropathy. Circum ferential disc bulging with facet arthropathy and ligamentum flavum hypertrophy result in moderate bi lateral foraminal encroachment and canal stenosis. 2. Multilevel mild degenerative disc disease. Facet arthropathy L4-5 and L5-S1. EXAMINATION TYPE: MR sacrum wo con DATE OF EXAM: 12/21/2021 COMPARISON: X-ray 12/20/2021 HISTORY: Lower extremity pain Standard multiplanar, multisequence MRI departmental protocol Multiplanar, multisequence images of the sacrum were acquired without contrast. FINDINGS: The SI joints are symmetric. No erosive changes or infiltrate. Sacrum is intact. Sacral for lex. No diagnostic evidence of sacroiliitis. No fracture. Fatty marrow replacement is seen involvin g the sacrococcygeal junction. Prostate gland mildly prominent and heterogeneous correlate clinically IMPRESSION: 1. Sacrum has a normal appearance. 2. There is mild heterogeneity and prominence of the prostate gland correlate clinically
--- NOTE | 2021-12-21 11:48 | P.PN ---
Progress Note - Text Progress Note Date: 12/21/21 The patient is seen and examined today bedside. He is is Back from his MRI of his low back and I was able to refer and reviewed those images and results. He says the back pain has been rough for him over the past several weeks. And extends down his legs bilaterally. He does not feel weak in his legs but has significant pain toward his gluteus hand hips and thighs. He denies any new injury or problems. Denies any prior problems with his low back in the past. Currently he denies any chest pain or shortness of breath. On exam His blood pressure is making some improvement to 156/94. He's breathing company on room air. At his back is nontender over the midline. 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 His lower extremities he has 5 out of 5 strength dorsal flexion plantar flexion and EHL. He is some breakaway strength with hip flexion due to pain in his back. He is no pain with internal extra rotation of his hips. MRI of lumbar spine done today Shows slight listhesis at L4 5. There is some central and bilateral foraminal stenosis with disc degeneration L4 5. There is significant inflammation within the facet joints bilaterally. There is no bony erosion. Assessment and plan Multiple medical issues with significant hypertension being managed by ca rdiology and medicine appropriately. Back pain with lower extremity radiculopathy. The patient has a listhesis and has acute inflammation around L4 5 with facet hypertrophy and information of his facet joints. He is having some radiculopathy with this as well. His strength is intact and I do not think he needs acute surgical intervention. I think that he could benefit with dedicated aggressive conservative treatment. I would like to start him on a short course of oral steroid but I'm unsure how this will affect his blood pressure has he is trying to get this new we under control with some medication changes. I would like to order him a short course of oral steroid if it is okay with medicine service. I think this can help alleviate number of his symptoms in his low back. He is okay for him to mobilize as he tolerates. From a spine standpoint is okay for him to be followed on an outpatient basis when he is stable from medicine. He could be a candidate for further intervent ion at his lower back in terms of interventional pain management or even surgical intervention if his symptoms were to continue and worsen.
[2021-12-21 11:52] LABS: Glucose,Whole Blood 136 mg/dL (75-99)
[2021-12-21] MEDS ORDERED: KETOROLAC 15 MG/ML 1 ML VIAL IVP SCH (12:00)
--- NOTE | 2021-12-21 14:06 | P.PN ---
Subjective Progress Note Date: 12/21/21 CHIEF COMPLAINT: Abdominal pain HISTORY OF PRESENT ILLNESS: Patient reports improvement in his pain. He is tolerating diet. HIDA scan is showing biliary hypokinesia with an EF of 5%. Doppler ultrasound suggesting adenomyomatosis of the gallbladder. Afebrile. No new labs today. PHYSICAL EXAM: VITAL SIGNS: Reviewed GENERAL: Well-developed in no acute distress. HEENT: No sclera icterus. Extraocular movements grossly intact. Moist buccal mucosa. Head is atraumatic, normocephalic. Hears conversational speech. No nasal drainage. NECK: Supple without lymphadenopathy. CHEST: Non-labored respirations and equal bilateral excursions. CARDIOVASCULAR: Palpable 2+ radial pulses. ABDOMEN: Soft. Nondistended. Nontender. MUSCULOSKELETAL: No clubbing or cyanosis. NEUROLOGIC: No focal or lateralizing signs. Cranial nerves II through XII grossly intact. PSYCH: Appropriate affect. Alert and oriented to person, place and time. SKIN: Well perfused. Good skin turgor. ASSESSMENT: 1. Right upper quadrant abdominal pain 2. Abnormal EKG 3. Lower extremity neuropathy 4. Type II diabetes mellitus, insulin dependent PLAN: -Recommended outpatient cholecystectomy -Patient will need to be off Plavix for about 2 weeks depending on cardiac recommendations on stopping Plavix -Continue a low-fat diet -Patient can be discharged surgical standpoint Physician Auto Refinisher note has been reviewed by physician. Signing provider agrees with the documented findings, assessment, and plan of care. CHIEF COMPLAINT: Abdominal pain HISTORY OF PRESENT ILLNESS: The patient is a 66 year old male with history of multiple admissions for abdominal pain and pain along the lower legs. He often eats high fat fast foods including [employer]. He is tolerating diet. Additional diagnostic were performed. REVIEW OF ORGAN SYSTEMS: CONSTITUTIONAL: No fevers or chills. EYES: Denies any trouble with vision. Wears glasses. CARDIOVASCULAR: History of chest pain, palpitations, or recent heart attacks. Has angina. Has hyperlipidemia. Has hypertensive heart disease with ischemic cardiomyopathy. History of myocardial infarction. Has cardiac stent. NEUROLOGICAL: Has numbness or tingling along the distal extremities. Has headaches. History of CVA/TIA. Has SHEET ROCK APPLICATOR shunt. Has migraines. PHYSICAL EXAM: VITALS: Reviewed CONSTITUTIONAL: Well developed and in no acute distress. EYES: Conjuctivae without sclera icterus. Pupils are equally round and reactive to light. Extraocular movements grossly intact. HEAD, EARS, NOSE, THROAT: Moist buccal mucosa. Head is atraumatic, normocephalic. Hears conversational speech. No nasal drainage. RESPIRATORY: Non-labored respirations and equal bilateral excursions. No gross wheezes. CARDIOVASCULAR: Palpable 2+ radial pulses. ABDOMEN:Tenderness right upper quadrant. No peritonitis MUSCULOSKELETAL: No clubbing, cyanosis. Amputation of hand left noted SKIN: Warm and well perfused with good skin turgor. NEUROLOGIC: Cranial nerves II through XII grossly intact. No focal or lateralizing signs. PSYCH: Alert and oriented to person, place and time. CLINCAL LABS: Reviewed. BSG 136. ASSESSMENT: 1. Right upper quadrant abdominal pain 2. Abnormal EKG 3. Lower extremity neuropathy 4. Type II diabetes mellitus, insulin dependent 5. Biliary dyskinesia 6. Hyperglycemia PLAN: 1. He is on Plavix and surgical intervention on Plavix is high risk for bleeding and complications. 2. May be discharged from a surgical standpoint on a low fat diet. Dietary restrictions reviewed with the patient at bedside. 3. Will need to be off Plavix. Cardiology assessment and clearance prior to cholecystectomy and management of Plavix requested. 4. At this time conservation management for gallbladder disorder. Objective - Vital Signs Vital signs: Vital Signs Temp 97.5 F L 12/21/21 08:00 Pulse 82 12/21/21 08:00 Resp 18 12/21/21 08:00 BP 156/94 12/21/21 08:00 Pulse Ox 96 12/21/21 08:00 Intake & Output 12/20/21 12/21/21 12/21/21 18:59 06:59 18:59 Other: Voiding Method Toilet Toilet # Voids 1 1 - Labs CBC & Chem 7: 12/19/21 05:26 12/20/21 05:26 Labs: Abnormal Lab Results - Last 24 Hours (Table) 12/20/21 12/20/21 12/20/21 Range/Units 17:46 18:02 20:48 POC Glucose (mg/dL) 67 L 72 L 256 H (75-99) mg/dL 12/21/21 12/21/21 Range/Units 06:58 11:50 POC Glucose (mg/dL) 224 H 136 H (75-99) mg/dL
[2021-12-21 15:21] VITALS: BP 150/81; PULSE 75; RESP 16; TEMP 98.4
--- NOTE | 2021-12-21 20:57 | P.DS ---
Providers Date of admission: 12/20/21 13:10 Expected date of discharge: 12/21/21 Attending physician: Subhash Evans Consults: 12/19/21 15:34 Consult Physician Routine Consulting Provider: Janine Mercedes Consult Reason/Comments: lower quad abdominal pain, nausea, vomiting, known to pt Do you want consulting provider notified?: Yes 12/19/21 15:38 Consult Physician Routine Consulting Provider: Psychiatry - [facility] Consult Reason/Comments: feelings of hopelessness, tearful Do you want consulting provider notified?: Yes 12/20/21 13:08 Consult Physician Routine Consulting Provider: Beto Corrales Consult Reason/Comments: lower back pain with radiculopathy Do you want consulting provider notified?: Yes Primary care physician: Stated None Hospital Course: This is a pleasant 66 year old male who presents to this hospital with complaints of left sided chest pain described as a tight squeeze which than progressed into a stabbing sensation later on in the evening yesterday. Patient reports radiation into the jaw and arm, which has currently subsided. He took tylenol at home for the pain. Blood pressure at home was too high to register on his machine. When he presented to the Blood pressure was found to be 220/110s. Patient reports associated dizziness as well. He has been short of breath with non productive cough. Patient also states he is having abdominal pain lower quadrant feels like a tight band which he states is constant as well as nausea and vomiting late in the evening when lying flat to sleep, this has been ongoing for the last 9 months. Patient was recently evaluated in the 4 times in the last couple months for nausea and vomiting. He had an abdominal ultrasound completed in October of 2021 showing cystic lesion right kidney, and abdominal pelvis CT showing no acute abnormality within the abdomen and pelvis. States he was following with Dr Mercedes outpatient and is due for colonoscopy, was also told he had a hiatal hernia in the past. Chronic conditions include COPD, TIA, CVA with no residual,, diabetes mellitus type 2, hypertension, hyperlipidemia, renal disease, GERD, heart cath with stent most recent in August 2020, myocardial infarction, skull/head injury at age 19 with lengthy hospitalization, hydrocephalus with DIRECTOR TELEMETRY shunt. Patient also had left-hand amputation, bowel resection secondary to diverticulitis. Reports anxiety/depression, there will history of alcohol use has not drink in 30 years, was a 1 pack per day smoker he has cut down to 5 cigars per day and was planning on quitting this upcoming weekend. Occasional marijuana use. Pt reports he has established care with Dr Gutierrez and was supposed to see today, Dr Evans will resume care tomorrow. December 20: Patient was seen by psychiatry today. Diagnosed with depressive disorder. Recommended antidepressant/and anxiety medications. Patient declined. Patient also has a DIRECTOR TELEMETRY shunt for increased headaches in the past. Patient states she's been also vomiting for 3 days. Has been having upper abdominal pain going across go to 3 months. Sometimes is worse when he lies down. Not necessarily related to eating. HIDA scan was ordered this morning. Patient also complains of pain in the lower sacral area and the pain goes down both the legs when he walks. MRI of the area was ordered. Orthopedic spine also consulted. Patient did vomit last night. Blood pressures been running high. Start Catapres 0.2 mg 3 times a day. December 21: Patient's MRI of the lumbosacral spine area showing arthritis. Seen by orthopedics. We'll follow him outpatient. Start patient on naproxen. HIDA scan showed dysfunctional gallbladder. We'll follow with Dr. Tee as outpatient. Possible cholecystectomy. Blood pressure medications further adjusted. Care was discussed in detail with the patient. Questions answered. Also PPI added. Again advised against smoking. Discussion and discharge planning more than 35 minutes INVESTIGATIONS, reviewed in the clinical context: MRI lumbosacral spine: Arthritic changes. December 20: Sodium 136 potassium 4.4 creatinine 1.2 LFTs normal. Lipase 48 HIDA scan: Biliary hypokinesia. EF 5%. Ultrasound gallbladder: Suggestion of aadenomyomatosis of the gallbladder white count 11.1, hematocrit 55.3, neutrophils 8.4, sodium 135, CO2 21, glucose 253, troponin level negative 2, amylase 118, lipase 372. Chest x-ray showing no acute cardiopulmonary disease. EKG showing sinus rhythm, heart rate 92, QT interval 398 Previous studies: 2-D echo from September 2021: Moderate concentric LVH. EF 55-60%. On examination: VITAL SIGNS: 98.4, 75, 16, 150/81, 96% room air] GENERAL APPEARANCE: Sitting up in bed, comfortable HEENT: Normal external appearance of nose and ear. Oral cavity normal EYES: Pupils equal. Conjunctiva normal. NECK: JVD not raised. Mass not palpable. RESPIRATORY: Respiratory effort normal. Lungs decreased breath sound. CARDIOVASCULAR: First and second sounds normal. No edema. EXTREMITY: Left below elbow amputation ABDOMEN: Soft. Liver and spleen not palpable. No tenderness. No mass palpable. PSYCHIATRY: Alert and oriented x3. Mood and affect anxious Assessment and Plan -Chest pain, possibly from uncontrolled hypertension. Seen by cardiology. Blood pressure control. No further testing at this point, -Essential Hypertension, uncontrolled Coreg 25 mg twice a day. Diovan 80 mg twice a day. Catapres 0.2 mg 3 times a day. Amlodipine 10 mg a day -Chronic upper abdominal pain present for about 3 months. with associated nausea vomiting HIDA scan showing EF of less than 5%. Follow-up Dr. Mercedes outpatient for cholecystectomy Leukocytosis reactive -Diabetes mellitus type II chronically on insulin with hyperglycemia Levemir 40 units daily. NovoLog 14 units with meals -Coronary artery disease status post stenting Aspirin, Coreg, -Hydrocephalus history of DIRECTOR TELEMETRY shunt. -Peripheral neuropathy secondary to diabetes especially in the feet -Hyperlipidemia - COPD, and a smoker Albuterol when necessary -GERD Pepcid 10 mg twice a day -Anxiety/Depression Seen by Dr. Walsh from psychiatry. 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 Disposition: Home Plan - Discharge Summary New Discharge Prescriptions: New cloNIDine HCL [Catapres] 0.2 mg PO TID #90 tab Carvedilol [Coreg] 25 mg PO BID #60 tablet Nicotine 21Mg/24Hr Patch [Habitrol] 1 patch TRANSDERM DAILY #14 patch Omeprazole [PriLOSEC] 20 mg PO AC-BID #60 cap Dicyclomine [Bentyl] 10 mg PO QID PRN #30 cap PRN Reason: cramping Valsartan [Diovan] 80 mg PO BID #60 tab Psyllium Husk 100% [Metamucil Packet] 6 gm PO DAILY #30 packet Naproxen [Naprosyn] 250 mg PO TID #60 tab amLODIPine [Norvasc] 10 mg PO DAILY #30 tab Continue Aspirin EC [Ecotrin Low Dose] 81 mg PO DAILY Nitroglycerin Sl Tabs [Nitrostat] 0.4 mg SL Q5M PRN PRN Reason: Chest Pain Clopidogrel [Plavix] 75 mg PO DAILY #30 tab Mag Hydrox/Al Hydrox/Simeth [Maalox] 30 ml PO BID PRN 7 Days #500 ml PRN Reason: Dyspepsia Cholecalciferol (Vitamin D3) [Vitamin D3 (3000 Iu)] 75 mcg PO DAILY Changed Insulin Detemir [Levemir Flextouch Pen] 40 units SQ DAILY #0 Insulin Aspart [NovoLOG Flexpen] 14 units SQ AC-TID #0 Discontinued lisinopriL [Zestril] 20 mg PO BID Insulin Aspart [NovoLOG Flexpen] 12 units SQ AC-LUNCH Metoprolol Tartrate [Lopressor] 100 mg PO BID #60 tab cloNIDine HCL [Catapres] 0.3 mg PO TID Famotidine [Pepcid AC] 10 mg PO BID 7 Days #14 tablet Docusate [Colace] 100 mg PO HS Discharge Medication List Aspirin EC [Ecotrin Low Dose] 81 mg PO DAILY 02/15/20 [History] Nitroglycerin Sl Tabs [Nitrostat] 0.4 mg SL Q5M PRN 08/18/20 [History] Clopidogrel [Plavix] 75 mg PO DAILY #30 tab 08/20/20 [Rx] Mag Hydrox/Al Hydrox/Simeth [Maalox] 30 ml PO BID PRN 7 Days #500 ml 10/11/21 [Rx] Cholecalciferol (Vitamin D3) [Vitamin D3 (3000 Iu)] 75 mcg PO DAILY 11/08/21 [History] Carvedilol [Coreg] 25 mg PO BID #60 tablet 12/21/21 [Rx] Dicyclomine [Bentyl] 10 mg PO QID PRN #30 cap 12/21/21 [Rx] Insulin Aspart [NovoLOG Flexpen] 14 units SQ AC-TID #0 12/21/21 [Rx] Insulin Detemir [Levemir Flextouch Pen] 40 units SQ DAILY #0 12/21/21 [Rx] Naproxen [Naprosyn] 250 mg PO TID #60 tab 12/21/21 [Rx] Nicotine 21Mg/24Hr Patch [Habitrol] 1 patch TRANSDERM DAILY #14 patch 12/21/21 [Rx] Omeprazole [PriLOSEC] 20 mg PO AC-BID #60 cap 12/21/21 [Rx] Psyllium Husk 100% [Metamucil Packet] 6 gm PO DAILY #30 packet 12/21/21 [Rx] Valsartan [Diovan] 80 mg PO BID #60 tab 12/21/21 [Rx] amLODIPine [Norvasc] 10 mg PO DAILY #30 tab 12/21/21 [Rx] cloNIDine HCL [Catapres] 0.2 mg PO TID #90 tab 12/21/21 [Rx] Follow up Appointment(s)/Referral(s): Pérez Sanders MD [STAFF PHYSICIAN] - 12/27/21 2:00 pm (dr Mindy Gaona ) Britton Guido MD [REFERRING] - (Possible new primary car eprovider. Contact to ensure they accept your insurance. Contact insurance to ensure provider is in network provider.) Janine Mercedes MD [STAFF PHYSICIAN] - 12/26/21 5:00 pm Patient Instructions/Handouts: Chest Pain (GEN), How to Stop Smoking (DC), Cholecystitis (GEN), Osteoarthritis (GEN) Discharge Disposition: HOME SELF-CARE
== END 2021-12-21 17:13 | disposition home or self-care (01) | DRG 305 ==
LOC: EC 04:58 → 6NMEDSUR 07:36 → OBSVTOIN 12-20 13:10
PROVIDERS: ADMIT Hospitalist; ATTEND Hospitalist
DX: I10 Essential (primary) hypertension (principal); G91.9 Hydrocephalus, unspecified; M47.16 Other spondylosis with myelopathy, lumbar region; E11.65 Type 2 diabetes mellitus with hyperglycemia; E11.42 Type 2 diabetes mellitus with diabetic polyneuropathy; E66.9 Obesity, unspecified; Z68.31 Body mass index [BMI] 31.0-31.9, adult; H91.90 Unspecified hearing loss, unspecified ear; F41.9 Anxiety disorder, unspecified; E78.5 Hyperlipidemia, unspecified; F32.A Depression, unspecified; I25.10 Atherosclerotic heart disease of native coronary artery without angina pectoris; K82.8 Other specified diseases of gallbladder; M43.16 Spondylolisthesis, lumbar region; M47.26 Other spondylosis with radiculopathy, lumbar region; K58.9 Irritable bowel syndrome, unspecified; G89.4 Chronic pain syndrome; K21.9 Gastro-esophageal reflux disease without esophagitis; J44.9 Chronic obstructive pulmonary disease, unspecified; R07.89 Other chest pain; R29.6 Repeated falls; F17.290 Nicotine dependence, other tobacco product, uncomplicated; N28.9 Disorder of kidney and ureter, unspecified; Z95.5 Presence of coronary angioplasty implant and graft; I25.2 Old myocardial infarction; Z89.212 Acquired absence of left upper limb below elbow; Z90.49 Acquired absence of other specified parts of digestive tract; Z98.1 Arthrodesis status; Z79.02 Long term (current) use of antithrombotics/antiplatelets; Z79.4 Long term (current) use of insulin; Z79.82 Long term (current) use of aspirin; Z79.899 Other long term (current) drug therapy; Z86.73 Personal history of transient ischemic attack (TIA), and cerebral infarction without residual deficits; Z98.2 Presence of cerebrospinal fluid drainage device; Z91.81 History of falling; Z88.8 Allergy status to other drugs, medicaments and biological substances; Z88.6 Allergy status to analgesic agent; Z91.041 Radiographic dye allergy status
CPT/HCPCS: 36415; 71045; 72100; 72148; 72195; 76705; 78227; 80053; 80061; 82150; 83690; 83735; 84484; 85025; 85610; 85730; 93005; 96374; 96375; 96376; 99285

== ENCOUNTER 2022-02-09 06:12 | Day surgery (SDC) | payer BC, MEDICARE ==
[~2022-02-09 06:12] MED LIST changes: +ACETAMINOPHEN TAB 500 MG TAB PO PRN; +DEXAMETHASONE SOD PHOSPHATE 4 MG/ML 1 ML VIAL IV ONE; +FAMOTIDINE 20 MG TAB PO PRN; +HEPARIN SODIUM,PORCINE/PF 5,000 UNIT/0.5 ML SYRINGE SQ PRN; +INDOCYANINE GREEN 25 MG VIAL IV STA; +LACTATED RINGERS 1,000 ML IV SCH; -LIDOCAINE 1% 20 ML VIAL (10MG/ML) FOR IV START INTRADERMA ONE; +MIDAZOLAM 2 MG/2 ML VIAL IV PRN; -PROPOFOL 10 MG/ML 20 ML VIAL IV ONE; +TAMSULOSIN 0.4 MG CAP.ER.24H PO PRN
[2022-02-09 07:04] LABS: Glucose,Whole Blood 253 mg/dL (70-110)
[2022-02-09] MEDS ORDERED: INSULIN ASPART (NovoLOG) 100 UNIT/ML VIAL SQ ONE ×3 (07:16→10:54)
[2022-02-09] MEDS ORDERED: INDOCYANINE GREEN 25 MG VIAL IV ONE (07:25)
[2022-02-09] MEDS ORDERED: SUCCINYLCHOLINE CHLORIDE 100 MG/5 ML SYR IV ONE (07:25)
[2022-02-09] MEDS ORDERED: fentaNYL (PF) 50 MCG/ML 2 ML AMP ONE (07:25)
[2022-02-09] MEDS ORDERED: KETOROLAC 15 MG/ML 1 ML VIAL ONE (07:25)
[2022-02-09] MEDS ORDERED: ROCURONIUM 10 MG/ML (5 ML VIAL) IV ONE (07:25)
[2022-02-09] MEDS ORDERED: LIDOCAINE 2% INJ 20 MG/ML (2 ML VIAL) ONE (07:25)
[2022-02-09] MEDS ORDERED: GLYCOPYRROLATE 0.2 MG/ML 2 ML VIAL ONE (07:25)
[2022-02-09] MEDS ORDERED: PROPOFOL 10 MG/ML 20 ML VIAL IV ONE (07:25)
[2022-02-09] MEDS ORDERED: NEOSTIGMINE 1 MG/ML 10 ML VIAL ONE (07:25)
[2022-02-09] MEDS ORDERED: MIDAZOLAM 2 MG/2 ML VIAL ONE (07:25)
[2022-02-09] MEDS ORDERED: KETAMINE 10 MG/ML 20 ML VIAL ONE (07:25)
--- NOTE | 2022-02-09 07:28 | P.GSHP ---
History of Present Illness H&P Date: 02/09/22 CHIEF COMPLAINT: Cholecystitis HISTORY OF PRESENT ILLNESS: The patient is a 66-year-old male who presents with history of epigastric including right upper quadrant abdominal pain. He underwent diagnostic studies for the gallbladder. Separately his clinical picture was consistent with cholecystitis. Now he presents for surgical intervention. PAST MEDICAL HISTORY: Please see list PAST SURGICAL HISTORY: Please see list MEDICATIONS: Please see list ALLERGIES: Denies. SOCIAL HISTORY: No illicit drug use or recent tobacco use FAMILY HISTORY: Pertinent for gallbladder disease REVIEW OF ORGAN SYSTEMS: CONSTITUTIONAL: No reports of fevers or chills. HEENT: Denies any troubles with the vision or hearing. ENDOCRINE: No reports of hypothyroidism. No diabetes. RESPIRATORY: No recent pneumonias. CARDIOVASCULAR: Denies chest pain or palpitations GI: No blood in stools or constipation. MUSCULOSKELETAL: Has occasional joint pain including back pain. NEURO: No seizure disorders or headaches. No recent stroke. PSYCH: No depression or suicidal ideation. HEMATOLOGIC: No personal or family history of DVTs or pulmonary emboli. PHYSICAL EXAM: VITAL SIGNS: Afebrile vital signs stable GENERAL: Well-developed pleasant male in no acute distress. HEENT: No scleral icterus. Extraocular movements grossly intact. Moist buccal mucosa. NECK: Supple without lymphadenopathy. CHEST: Unlabored respirations. Equal bilateral excursions. CARDIOVASCULAR: Regular rate regular rhythm rhythm. Distal 2+ pulses. ABDOMEN: Soft, nondistended. Tender along the epigastrium and right upper quadrant. MUSCULOSKELETAL: No clubbing, cyanosis, or edema. NEURO : No focal or lateralizing signs. Cranial nerves II-12 within normal limits. PSYCH: Alert and oriented to person, place and time. SKIN: Well perfused. Good skin turgor. ASSESSMENT: 1. Epigastric and right upper quadrant abdominal pain 2. Chronic cholecystitis PLAN: 1. Will need a robotic cholecystectomy possible open. Benefits and risks were described. 2. Heparin for DVT prophylaxis 5000 units. 3. Antibiotic prophylaxis. Past Medical History Past Medical History: Chest Pain / Angina, COPD, CVA/TIA, Diabetes Mellitus, GERD/Reflux, Hearing Disorder / Deafness, Hyperlipidemia, Hypertension, Myocardial Infarction (MT), Renal Disease Additional Past Medical History / Comment(s): IDDM type II, neuropathy bilateral feet, CVA with no residual, TIA, hydrocephalus with NURSE RECRUITER shunt, recent admissions for abdominal pain/severe depression 4-5 months ago, IBS, diverticulitis/bowel resection, hiatal hernia, DJD, occasional cervical pain, migraines, skull/head injury at age 19 with lengthy hospitalization, nephrolithiasis-passed stone on his own, [place] bilaterally. Last Myocardial Infarction Date:: 2020 History of Any Multi-Drug Resistant Organisms: None Reported Past Surgical History: Back Surgery, Bowel Resection, Heart Catheterization With Stent, Orthopedic Surgery Additional Past Surgical History / Comment(s): 02/18/20 Robot assisted laparoscopy/extensive lysis of adhesions, NURSE RECRUITER shunt, 2019 R elbow tendon surgery, L knee arthroscopy, L hand amp d/t industrial accident, cervical fusion, bowel resection d/t diverticulitis, EGD, colonoscopy, hemorrhoidectomy, Heart cath with 2 stents on 08/26/2020 Past Anesthesia/Blood Transfusion Reactions: No Reported Reaction Date of Last Stent Placement:: 2020 Smoking Status: Current every day smoker - Past Family History Mother Family Medical History: Cancer Additional Family Medical History / Comment(s): kidney Father Family Medical History: Cancer Additional Family Medical History / Comment(s): pancreatic Medications and Allergies Home Medications Medication Instructions Recorded Confirmed Type Aspirin EC [Ecotrin Low Dose] 81 mg PO DAILY 02/15/20 02/08/22 History Omeprazole [PriLOSEC] 20 mg PO AC-BID #60 cap 12/21/21 02/08/22 Rx Valsartan [Diovan] 80 mg PO BID #60 tab 12/21/21 02/08/22 Rx amLODIPine [Norvasc] 10 mg PO DAILY #30 tab 12/21/21 02/08/22 Rx Baclofen 10 mg PO TID 02/08/22 02/08/22 History Cholecalciferol [Vitamin D3 (25 25 mcg PO TID-W/MEALS 02/08/22 02/08/22 History Mcg = 1000 Iu)] Doxazosin [Cardura] 2 mg PO W/SUPPER 02/08/22 02/08/22 History Famotidine [Pepcid] 10 mg PO AC-SUPPER 02/08/22 02/08/22 History Insulin Aspart [NovoLOG Flexpen] 12 units SQ AC-LUNCH 02/08/22 02/08/22 History Insulin Aspart [NovoLOG Flexpen] 22 units SQ BID-W/MEALS 02/08/22 02/08/22 History Insulin Detemir [Levemir Flextouch 58 units SQ AC-SUPPER 02/08/22 02/08/22 History Pen] cloNIDine HCL [Catapres] 0.3 mg PO TID-W/MEALS 02/08/22 02/08/22 History hydroCHLOROthiazide 25 mg PO DAILY 02/08/22 02/08/22 History Allergies Allergy/AdvReac Type Severity Reaction Status Date / Time blue dye Allergy Severe Rash/Hives Verified 02/09/22 06:40 ezetimibe [From Zetia] Allergy Severe Abdominal Verified 02/09/22 06:40 Pain [id number] Reductase Allergy Severe Abdominal Verified 02/09/22 06:40 Inhibitor Pain codeine Allergy Itching Verified 02/09/22 06:40 naproxen sodium [From Aleve] Allergy Rash/Hives Verified 02/09/22 06:40 ondansetron [From Zofran] Allergy Rash/Hives Verified 02/09/22 06:40 gabapentin AdvReac Abdominal Verified 02/09/22 06:40 Pain naloxegol [From Movantik] AdvReac Nausea & Verified 02/09/22 06:40 Vomiting Surgical - Exam Vital Signs Temp Pulse Resp BP Pulse Ox 97.7 F 100 20 170/81 98 02/09/22 07:04 02/09/22 07:04 02/09/22 07:04 02/09/22 07:04 02/09/22 07:04 Results - Labs Abnormal Lab Results - Last 24 Hours (Table) 02/09/22 Range/Units 07:03 POC Glucose (mg/dL) 253 H (70-110) mg/dL
[2022-02-09] MEDS ORDERED: BUPIVACAIN-EPI 0.25%-1:200,000 30 ML VIAL SQ ONE (07:53)
[2022-02-09] MEDS ORDERED: SIMETHICONE 80 MG CHEWABLE PO PRN (09:12)
[2022-02-09 09:13] VITALS: TEMP 96.6
--- NOTE | 2022-02-09 09:21 | P.OP ---
Date of Procedure: 02/09/22 Description of Procedure: SURGEON: JANINE MERCEDES MD PREOPERATIVE DIAGNOSES: 1. Chronic cholecystitis 2. Chronic pain syndrome 3. Diabetes type 2, insulin-dependent poorly controlled 4. Hypertensive heart disease with congestive heart failure 5. 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 Peritoneal adhesions 7. Gastroesophageal reflux disease 8. Chronic obstructive pulmonary disease 9. History of myocardial infarction 10. Diabetic neuropathy 11. Sensorineural impairment 12. Obesity due to excess calories, BMI 30.0 13. History of CVA/TIA POSTOPERATIVE DIAGNOSES: 1. Chronic cholecystitis 2. Chronic pain syndrome 3. Diabetes type 2, insulin-dependent poorly controlled 4. Hypertensive heart disease with congestive heart failure 5. 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 Peritoneal adhesions 7. Gastroesophageal reflux disease 8. Chronic obstructive pulmonary disease 9. History of myocardial infarction 10. Diabetic neuropathy 11. Sensorineural impairment 12. Obesity due to excess calories, BMI 30.0 13. History of CVA/TIA OPERATION: 1. Robotic-assisted da Peyman Xi laparoscopic cholecystectomy, multiport with FIREFLY 2. Robotic-assisted da Peyman Xi laparoscopic lysis of adhesions ESTIMATED BLOOD LOSS: 5 mL. SPECIMENS REMOVED: Gallbladder. COMPLICATIONS: None. OPERATIVE FINDINGS: 1. Moderate intra-abdominal adhesions, epigastrium requiring lysis of adhesions using vessel sealer INDICATIONS: The patient is a 66-year-old male who presents with chronic cholecystitis. Robotic assisted laparoscopic approach was described. Benefits and risks of the procedure including but not limited to bleeding, infection, injury to the biliary tree was described. Informed consent was obtained. DESCRIPTION OF PROCEDURE: Patient was brought to the operating room, placed in supine position. After general induction, the abdomen had been prepped and draped in standard sterile fashion. The robotic da Epyman XI system was primed. After a timeout protocol was performed, the patient had been prepped and draped in standard sterile fashion. The patient was injected with indocyanine green. A 5 mm 0 degrees laparoscopic trocar entry was performed along the left upper quadrant. The abdomen insufflated to 15 mmHg pressure which was tolerated well. Diagnostic laparoscopy demonstrated no injury to bowel viscera or mesentery. The liver surface was unremarkable. Next, two 8 mm robotic ports were placed along the right upper abdomen. The camera 8-mm port was maintained along the epigastrium. Another 8 mm port was placed along the left upper abdominal wall after exchanging the 5 mm port. Please note that the ports were placed at least 10 to 15 cm away from the target anatomy of the gallbladder. The robot was docked along the left lateral abdomen. The patient was repositioned in reverse Trendelenburg position. Using a grasper for arm 3, a grasper for arm 4, including hook cautery for arm 1, the robotic system was docked and primed as described. Instruments were interchanged by the virtual customer assistant including hook cautery, Bovie cautery and clip appliers. Vessel sealer was used to address moderate intra- abdominal adhesions. I had sat at the console. Moderate intra-abdominal adhesions were identified from prior surgery. Vessel sealer was used to dissect along the epigastrium including left upper quadrant for entry of the instruments. The gallbladder was scarred with peritoneal adhesions. Lysis of adhesions was performed to free the gallbladder from the surrounding tissues. Next attention was brought to the infundibulum and cystic structures. The infundibulum and cystic duct were dissected free from surrounding tissues. The cystic duct was isolated. FIREFLY was used to identify the cystic artery and cystic structures. A critical view of safety was obtained. Large PLASTIC clips were used throughout the entire case. Using a clip founder chairman and chief creative officer, 2 clips were placed at the junction of the infundibulum and cystic duct. The cystic duct was divided between clips. Next, the cystic artery was similarly clipped and cauterized. Total of 3 clips were left within the hepatic fossa. Electro-Bovie cautery was used to remove the gallbladder from the hepatic fossa. Hemostasis was checked and found to be adequate. The robot was undocked. I re-scrubbed into the case. Using a 10 mm Endo Catch bag via the left upper quadrant incision, the specimen was removed from the abdominal cavity. All pneumoperitoneum instruments were evacuated from the abdominal cavity. The incisions were reapproximated using 4-0 Monocryl in an interrupted subcuticular fashion. Fascial defects were less than 8 mm in size. Please note along the trocar sites, local anesthetic was placed as a field block prior to insertion of all instruments. Liquid glue was applied to the skin. At the end of the procedure needle, sponge, and instrument count had been verified correct by the surgical supplies sterilizer. The patient was transferred to postanesthesia care unit in stable condition. Intraoperative films were shared with the patient's family. Plan - Discharge Summary Discharge Rx Participant: No New Discharge Prescriptions: New Acetaminophen Tab [Tylenol Tab] 1,000 mg PO Q6HR PRN #30 tablet PRN Reason: Pain Simethicone [Gas-X] 125 mg PO AC-TID PRN #20 capsule PRN Reason: Pain Continue Aspirin EC [Ecotrin Low Dose] 81 mg PO DAILY Omeprazole [PriLOSEC] 20 mg PO AC-BID #60 cap Famotidine [Pepcid] 10 mg PO AC-SUPPER Baclofen 10 mg PO TID cloNIDine HCL [Catapres] 0.3 mg PO TID-W/MEALS Valsartan [Diovan] 80 mg PO BID #60 tab amLODIPine [Norvasc] 10 mg PO DAILY #30 tab Doxazosin [Cardura] 2 mg PO W/SUPPER hydroCHLOROthiazide 25 mg PO DAILY Cholecalciferol [Vitamin D3 (25 Mcg = 1000 Iu)] 25 mcg PO TID-W/MEALS Insulin Aspart [NovoLOG Flexpen] 12 units SQ AC-LUNCH Insulin Detemir [Levemir Flextouch Pen] 58 units SQ AC-SUPPER Insulin Aspart [NovoLOG Flexpen] 22 units SQ BID-W/MEALS Discharge Medication List Aspirin EC [Ecotrin Low Dose] 81 mg PO DAILY 02/15/20 [History] Omeprazole [PriLOSEC] 20 mg PO AC-BID #60 cap 12/21/21 [Rx] Valsartan [Diovan] 80 mg PO BID #60 tab 12/21/21 [Rx] amLODIPine [Norvasc] 10 mg PO DAILY #30 tab 12/21/21 [Rx] Baclofen 10 mg PO TID 02/08/22 [History] Cholecalciferol [Vitamin D3 (25 Mcg = 1000 Iu)] 25 mcg PO TID-W/MEALS 02/08/22 [History] Doxazosin [Cardura] 2 mg PO W/SUPPER 02/08/22 [History] Famotidine [Pepcid] 10 mg PO AC-SUPPER 02/08/22 [History] Insulin Aspart [NovoLOG Flexpen] 12 units SQ AC-LUNCH 02/08/22 [History] Insulin Aspart [NovoLOG Flexpen] 22 units SQ BID-W/MEALS 02/08/22 [History] Insulin Detemir [Levemir Flextouch Pen] 58 units SQ AC-SUPPER 02/08/22 [History] cloNIDine HCL [Catapres] 0.3 mg PO TID-W/MEALS 02/08/22 [History] hydroCHLOROthiazide 25 mg PO DAILY 02/08/22 [History] Acetaminophen Tab [Tylenol Tab] 1,000 mg PO Q6HR PRN #30 tablet 02/09/22 [Rx] Simethicone [Gas-X] 125 mg PO AC-TID PRN #20 capsule 02/09/22 [Rx] Follow up Appointment(s)/Referral(s): Janine Mercedes MD [STAFF PHYSICIAN] - 02/13/22 (Telehealth) Patient Instructions/Handouts: Low Fat Diet (DC), *[facility] - Managing Your Pain After Surgery Without Opioids, *[facility] - Laparoscopic Cholecystectomy Discharge Instructions Discharge Disposition: HOME SELF-CARE
[2022-02-09] MEDS: HYDROmorphone 0.5 MG/0.5 ML SYRINGE IVP PRN ×3 (09:22→10:15)
[2022-02-09] MEDS ORDERED: LACTATED RINGERS 1,000 ML IV ONE (10:35)
[2022-02-09 10:46] LABS: Glucose,Whole Blood 305 mg/dL (70-110)
[2022-02-09] MEDS ORDERED: SIMETHICONE 80 MG CHEWABLE PO ONE (11:06)
[2022-02-09 11:16] VITALS: BP 156/84; PULSE 77; RESP 15
[2022-02-09 11:38] LABS: Glucose,Whole Blood 253 mg/dL (70-110)
== END 2022-02-09 11:45 | disposition home or self-care (01) ==
LOC: OR 06:12
PROVIDERS: ATTEND Surgery Plastic and Reconstructive Surgery
DX: K81.1 Chronic cholecystitis (principal); G89.4 Chronic pain syndrome; E13.40 Other specified diabetes mellitus with diabetic neuropathy, unspecified; Z79.4 Long term (current) use of insulin; I11.0 Hypertensive heart disease with heart failure; K66.0 Peritoneal adhesions (postprocedural) (postinfection); K21.9 Gastro-esophageal reflux disease without esophagitis; J44.9 Chronic obstructive pulmonary disease, unspecified; I25.2 Old myocardial infarction; H90.5 Unspecified sensorineural hearing loss; E66.09 Other obesity due to excess calories; Z68.30 Body mass index [BMI] 30.0-30.9, adult; Z86.73 Personal history of transient ischemic attack (TIA), and cerebral infarction without residual deficits
CPT/HCPCS: 88304; 47563; J2250; J2710; J0690; J3010; J1885; J0330; J2704; J1170; J1644; J2001

== ENCOUNTER 2022-03-23 03:51 | Emergency (ER) | payer MEDICARE ==
--- NOTE | 2022-03-23 04:29 | ED ---
General Adult HPI - General Chief complaint: Back Pain/Injury Stated complaint: leg pain, hip pain, neck pain Time Seen by Provider: 03/23/22 04:21 Source: patient Mode of arrival: ambulatory Limitations: no limitations - History of Present Illness Initial comments: This patient is 66-year-old man complaining of having pain to the bilateral lower extremities also to the right upper extremity. Patient has burning type pains. He has not noticed worsening or relieving factors. Onset/Timin -: week(s) Location: left, right, lower extremity Radiation: non-radiation Quality: burning Consistency: constant Improves with: none Worsens with: none Associated Symptoms: denies other symptoms Treatments Prior to Arrival: none - Related Data Home Medications Medication Instructions Recorded Confirmed Aspirin EC [Ecotrin Low Dose] 81 mg PO DAILY 02/15/20 02/08/22 Baclofen 10 mg PO TID 02/08/22 02/08/22 Cholecalciferol [Vitamin D3 (25 25 mcg PO TID-W/MEALS 02/08/22 02/08/22 Mcg = 1000 Iu)] Doxazosin [Cardura] 2 mg PO W/SUPPER 02/08/22 02/08/22 Famotidine [Pepcid] 10 mg PO AC-SUPPER 02/08/22 02/08/22 Insulin Aspart [NovoLOG Flexpen] 12 units SQ AC-LUNCH 02/08/22 02/08/22 Insulin Aspart [NovoLOG Flexpen] 22 units SQ BID-W/MEALS 02/08/22 02/08/22 Insulin Detemir [Levemir Flextouch 58 units SQ AC-SUPPER 02/08/22 02/08/22 Pen] cloNIDine HCL [Catapres] 0.3 mg PO TID-W/MEALS 02/08/22 02/08/22 hydroCHLOROthiazide 25 mg PO DAILY 02/08/22 02/08/22 Previous Rx's Medication Instructions Recorded Omeprazole [PriLOSEC] 20 mg PO AC-BID #60 cap 12/21/21 Valsartan [Diovan] 80 mg PO BID #60 tab 12/21/21 amLODIPine [Norvasc] 10 mg PO DAILY #30 tab 12/21/21 Acetaminophen Tab [Tylenol Tab] 1,000 mg PO Q6HR PRN #30 tablet 02/09/22 Simethicone [Gas-X] 125 mg PO AC-TID PRN #20 capsule 02/09/22 DULoxetine HCL 20 mg PO DAILY #30 cap 03/23/22 Allergies Allergy/AdvReac Type Severity Reaction Status Date / Time blue dye Allergy Severe Rash/Hives Verified 03/23/22 03:53 ezetimibe [From Zetia] Allergy Severe Abdominal Verified 03/23/22 03:53 Pain Awthwgm-LDP-WmD Reductase Allergy Severe Abdominal Verified 03/23/22 03:53 Inhibitor Pain codeine Allergy Itching Verified 03/23/22 03:53 naproxen sodium [From Aleve] Allergy Rash/Hives Verified 03/23/22 03:53 ondansetron [From Zofran] Allergy Rash/Hives Verified 03/23/22 03:53 gabapentin AdvReac Abdominal Verified 03/23/22 03:53 Pain naloxegol [From Movantik] AdvReac Nausea & Verified 03/23/22 03:53 Vomiting Review of Systems ROS Statement: Those systems with pertinent positive or pertinent negative responses have been documented in the HPI. ROS Other: All systems not noted in ROS Statement are negative. Constitutional: Denies: fever, chills Respiratory: Denies: cough, dyspnea Cardiovascular: Denies: chest pain, palpitations, edema Gastrointestinal: Denies: abdominal pain, vomiting, diarrhea Genitourinary: Denies: dysuria, hematuria Musculoskeletal: Denies: back pain Skin: Denies: rash Neurological: Reports: paresthesias. Denies: headache, weakness, numbness Past Medical History Past Medical History: Chest Pain / Angina, COPD, CVA/TIA, Diabetes Mellitus, GERD/Reflux, Hearing Disorder / Deafness, Hyperlipidemia, Hypertension, Myocardial Infarction (MD), Renal Disease Additional Past Medical History / Comment(s): IDDM type II, neuropathy bilateral feet, CVA with no residual, TIA, hydrocephalus with WOUND CARE PHYSICIAN shunt, recent admissions for abdominal pain/severe depression 4-5 months ago, IBS, diverticulitis/bowel resection, hiatal hernia, DJD, occasional cervical pain, migraines, skull/head injury at age 19 with lengthy hospitalization, nephrolithiasis-passed stone on his own, ALGAACIQ bilaterally. Last Myocardial Infarction Date:: 2020 History of Any Multi-Drug Resistant Organisms: None Reported Past Surgical History: Back Surgery, Bowel Resection, Cholecystectomy, Heart Catheterization With Stent, Orthopedic Surgery Additional Past Surgical History / Comment(s): 02/18/20 Robot assisted laparoscopy/extensive lysis of adhesions, WOUND CARE PHYSICIAN shunt, 2019 R elbow tendon surgery, L knee arthroscopy, L hand amp d/t industrial accident, cervical fusion, bowel resection d/t diverticulitis, EGD, colonoscopy, hemorrhoidectomy, Heart cath with 2 stents on 08/26/2020 Past Anesthesia/Blood Transfusion Reactions: No Reported Reaction Date of Last Stent Placement:: 2020 Past Psychological History: Anxiety, Depression Smoking Status: Current every day smoker Past Alcohol Use History: None Reported Past Drug Use History: Marijuana - Past Family History Mother Family Medical History: Cancer Additional Family Medical History / Comment(s): kidney Father Family Medical History: Cancer Additional Family Medical History / Comment(s): pancreatic General Exam Limitations: no limitations General appearance: alert, in no apparent distress Head exam: Present: atraumatic, normocephalic Eye exam: Present: normal appearance. Absent: scleral icterus, conjunctival injection Neck exam: Present: normal inspection Respiratory exam: Present: normal lung sounds bilaterally. Absent: respiratory distress, wheezes, rales, rhonchi, stridor Cardiovascular Exam: Present: regular rate, normal rhythm, normal heart sounds. Absent: systolic murmur, diastolic murmur, rubs, gallop GI/Abdominal exam: Present: soft. Absent: distended, tenderness, guarding, re bound, rigid, mass Extremities exam: Present: normal inspection, normal capillary refill. Absent: pedal edema, calf tenderness Back exam: Present: normal inspection. Absent: CVA tenderness (R), CVA tenderness (L) Neurological exam: Present: alert Skin exam: Present: warm, dry, intact, normal color. Absent: rash Course Vital Signs 03/23/22 03/23/22 03/23/22 03:53 04:58 07:25 Pulse Rate 86 90 99 Respiratory 18 20 20 Rate Blood Pressure 184/105 170/82 197/105 O2 Sat by Pulse 94 L 96 98 Oximetry Medical Decision Making - Lab Data Result diagrams: 03/23/22 04:54 03/23/22 04:54 Lab Results 03/23/22 03/23/22 Range/Units 04:54 04:54 WBC 11.5 H (3.8-10.6) k/uL RBC 5.12 (4.30-5.90) m/uL Hgb 16.5 (13.0-17.5) gm/dL Hct 49.3 (39.0-53.0) % MCV 96.4 (80.0-100.0) fL MCH 32.1 (25.0-35.0) pg MCHC 33.4 (31.0-37.0) g/dL RDW 13.9 (11.5-15.5) % Plt Count 261 (150-450) k/uL MPV 7.1 Neutrophils % 73 % Lymphocytes % 15 % Monocytes % 6 % Eosinophils % 3 % Basophils % 1 % Neutrophils # 8.4 H (1.3-7.7) k/uL Lymphocytes # 1.8 (1.0-4.8) k/uL Monocytes # 0.7 (0-1.0) k/uL Eosinophils # 0.4 (0-0.7) k/uL Basophils # 0.1 (0-0.2) k/uL Sodium 137 (137-145) mmol/L Potassium 4.4 (3.5-5.1) mmol/L Chloride 110 H (98-107) mmol/L Carbon Dioxide 20 L (22-30) mmol/L Anion Gap 7 mmol/L BUN 19 (9-20) mg/dL Creatinine 1.05 (0.66-1.25) mg/dL Est GFR (CKD-EPI)AfAm 85 (>60 ml/min/1.73 sqM) Est GFR (CKD-EPI)NonAf 74 (>60 ml/min/1.73 sqM) Glucose 180 H (74-99) mg/dL Calcium 9.1 (8.4-10.2) mg/dL Magnesium 1.9 (1.6-2.3) mg/dL Total Bilirubin 0.8 (0.2-1.3) mg/dL AST 21 (17-59) U/L ALT 21 (4-49) U/L Alkaline Phosphatase 124 (38-126) U/L C-Reactive Protein 1.0 H (<1.0) mg/dL Total Protein 7.0 (6.3-8.2) g/dL Albumin 4.4 (3.5-5.0) g/dL Disposition Clinical Impression: Neuropathy Disposition: HOME SELF-CARE Condition: Good Instructions (If sedation given, give patient instructions): Peripheral Neurop athy (ED) Prescriptions: DULoxetine HCL 20 mg PO DAILY #30 cap Is patient prescribed a controlled substance at d/c from ED?: No Referrals: None,Stated [REFERRING] - 1-2 days Beto Corrales DO [Doctor of Osteopathic Medicine] - 1-2 days
[2022-03-23] MEDS ORDERED: KETOROLAC 15 MG/ML 1 ML VIAL IVP STA (04:35)
[2022-03-23 05:00] LABS: Basophils # (A) 0.1 k/uL (0-0.2); Basophils % (A) 1 %; Eosinophils # (A) 0.4 k/uL (0-0.7); Eosinophils % (A) 3 %; HCT 49.3 % (39.0-53.0); HGB 16.5 gm/dL (13.0-17.5); Lymphocytes # (A) 1.8 k/uL (1.0-4.8); Lymphocytes % (A) 15 %; MCH 32.1 pg (25.0-35.0); MCHC 33.4 g/dL (31.0-37.0); MCV 96.4 fL (80.0-100.0); Mean Platelet Volume 7.1; Monocytes # (A) 0.7 k/uL (0-1.0); Monocytes % (A) 6 %; Neutrophils # (A) 8.4 k/uL (1.3-7.7); Neutrophils % (A) 73 %; Platelet Count 261 k/uL (150-450); RBC 5.12 m/uL (4.30-5.90); RDW 13.9 % (11.5-15.5); WBC 11.5 k/uL (3.8-10.6)
[2022-03-23 05:16] LABS: Albumin 4.4 g/dL (3.5-5.0); Calcium 9.1 mg/dL (8.4-10.2); Magnesium 1.9 mg/dL (1.6-2.3); Potassium 4.4 mmol/L (3.5-5.1); Total Bilirubin 0.8 mg/dL (0.2-1.3)
[2022-03-23] MEDS ORDERED: HYDROmorphone 1 MG/ML 1 ML SYRINGE IM STA (07:15)
[2022-03-23] MEDS ORDERED: HYDROmorphone 1 MG/ML 1 ML SYRINGE IVP STA (07:24)
[2022-03-23 08:29] VITALS: BP 171/85; PULSE 87; RESP 18; TEMP 97.9
== END 2022-03-23 08:29 | disposition home or self-care (01) ==
LOC: EC 03:51
DX: G62.9 Polyneuropathy, unspecified (principal); J44.9 Chronic obstructive pulmonary disease, unspecified; E11.9 Type 2 diabetes mellitus without complications; K21.9 Gastro-esophageal reflux disease without esophagitis; E78.5 Hyperlipidemia, unspecified; Z86.73 Personal history of transient ischemic attack (TIA), and cerebral infarction without residual deficits; I25.2 Old myocardial infarction; I12.9 Hypertensive chronic kidney disease with stage 1 through stage 4 chronic kidney disease, or unspecified chronic kidney disease; N18.9 Chronic kidney disease, unspecified; F41.9 Anxiety disorder, unspecified; F32.A Depression, unspecified; F17.200 Nicotine dependence, unspecified, uncomplicated; F12.90 Cannabis use, unspecified, uncomplicated; Z91.041 Radiographic dye allergy status; Z88.8 Allergy status to other drugs, medicaments and biological substances; Z88.5 Allergy status to narcotic agent; Z88.6 Allergy status to analgesic agent; Z79.4 Long term (current) use of insulin; Z79.82 Long term (current) use of aspirin; Z79.899 Other long term (current) drug therapy
CPT/HCPCS: 36415; 80053; 83735; 85025; 86140; 99283; 96374; 96375; J1170; J1885

== ENCOUNTER → 2022-08-03 | Outpatient (CLI) | payer MEDICARE ==
[2022-08-03 09:44] LABS: INR 1.1 (<1.2); Partial Thromboplastin Time 26.6 sec (22.0-30.0); Prothrombin Time 11.5 sec (9.0-12.0)
--- NOTE | 2022-08-03 09:53 | XR ---
EXAMINATION TYPE: XR chest 2V DATE OF EXAM: 08/03/2022 COMPARISON: Chest x-ray December 19, 2021 HISTORY: Presurgical study. TECHNIQUE: Frontal and lateral views of the chest are obtained. FINDINGS: There is no suspicious new focal air space opacity, pleural effusion, or pneumothorax seen . The cardiac silhouette size is stable and within normal limits. Multilevel spurring in the thoraci c spine is seen. IMPRESSION: No acute pulmonary process. No significant change from prior.
[2022-08-03 12:02] LABS: Basophils # (A) 0.16 X 10*3/uL (0.00-0.10); Basophils % (A) 1.6 %; Eosinophils # (A) 0.27 X 10*3/uL (0.04-0.35); Eosinophils % (A) 2.6 %; HGB 16.9 g/dL (13.0-17.0); Immature Grans, Automated 0.9 %; Lymphocytes # (A) 1.68 X 10*3/uL (0.90-5.00); Lymphocytes % (A) 16.4 %; MCH 31.6 pg (27.0-32.0); MCHC 33.1 g/dL (32.0-37.0); MCV 95.5 fL (80.0-97.0); Mean Platelet Volume 10.3 fL (9.5-12.2); Monocytes # (A) 0.92 X 10*3/uL (0.20-1.00); NRBC Per 100 WBC 0 /100 WBCS (0.0-0.0); Neutrophils # (A) 7.15 X 10*3/uL (1.80-7.70); Neutrophils % (A) 69.5 %; Platelet Count 273 X 10*3/uL (140-440); RBC 5.34 X 10*6/uL (4.40-5.60); RDW 13.5 % (11.5-14.5); WBC 10.27 X 10*3/uL (4.50-10.00)
[2022-08-03 12:11] LABS: African American GFR (CKD) 72.1 (60.0-200.0); Anion Gap 11.3 mmol/L (10.00-18.00); BUN/Creat Ratio 15.92 Ratio (12.00-20.00); Blood Urea Nitrogen 19.1 mg/dL (9.0-27.0); Calcium 9.6 mg/dL (8.7-10.3); Carbon Dioxide 23.7 mmol/L (20.0-27.5); Non-African American GFR(CKD) 62.2 (60.0-200.0); Potassium 4.4 mmol/L (3.5-5.5)
[2022-08-03 13:22] LABS: Appearance,Urine Clear (Clear); Bilirubin,Urine Negative (Negative); Blood,Urine Trace (Negative); Color,Urine Yellow (Yellow); Ketones,Urine Negative (Negative); Nitrite,Urine Negative (Negative); Urobilinogen,Urine 0.2 (0.2,1.0)
[2022-08-03 13:30] LABS: Bacteria,Urine None Seen /HPF (None Seen)
== END | disposition home or self-care (01) ==
LOC: LABPAT 08:57
PROVIDERS: ATTEND Orthopaedic Surgery Orthopaedic Surgery of the Spine
DX: Z01.812 Encounter for preprocedural laboratory examination (principal); M43.10 Spondylolisthesis, site unspecified
CPT/HCPCS: 36415; 71046; 80048; 81001; 85025; 85610; 85730; 87070

== ENCOUNTER 2022-08-15 06:14 | Observation (INO) | payer BC, MEDICARE ==
[2022-08-10 09:44] VITALS: BMI 30.1
[~2022-08-15 06:14] MED LIST changes: -ACETAMINOPHEN TAB 500 MG TAB PO PRN; -DEXAMETHASONE SOD PHOSPHATE 4 MG/ML 1 ML VIAL IV ONE; -FAMOTIDINE 20 MG TAB PO PRN; -HEPARIN SODIUM,PORCINE/PF 5,000 UNIT/0.5 ML SYRINGE SQ PRN; -INDOCYANINE GREEN 25 MG VIAL IV STA; -LACTATED RINGERS 1,000 ML IV SCH; -MIDAZOLAM 2 MG/2 ML VIAL IV PRN; -TAMSULOSIN 0.4 MG CAP.ER.24H PO PRN; +ceFAZolin 1,000 MG in SODIUM CHLORIDE 0.9% IRRIGATIO 1,000 ML IRRIGATION PRN
[2022-08-15] MEDS ORDERED: DEXAMETHASONE SOD PHOSPHATE 4 MG/ML 1 ML VIAL IV ONE (06:38)
[2022-08-15] MEDS ORDERED: fentaNYL (PF) 50 MCG/ML 2 ML AMP IV PRN (06:38)
[2022-08-15] MEDS ORDERED: LACTATED RINGERS 1,000 ML IV SCH (06:38)
[2022-08-15 07:13] LABS: Glucose,Whole Blood 178 mg/dL (70-110)
[2022-08-15] MEDS ORDERED: ROCURONIUM 10 MG/ML (5 ML VIAL) IV ONE (07:25)
[2022-08-15] MEDS ORDERED: LIDOCAINE 2% INJ 20 MG/ML (2 ML VIAL) ONE (07:25)
[2022-08-15] MEDS ORDERED: MIDAZOLAM 2 MG/2 ML VIAL ONE (07:25)
[2022-08-15] MEDS ORDERED: HYDROmorphone (PF) 1 MG/ML ONE (07:25)
[2022-08-15] MEDS ORDERED: fentaNYL (PF) 50 MCG/ML 2 ML AMP ONE (07:25)
[2022-08-15] MEDS ORDERED: PHENYLEPHRINE-0.9% NACL SYG 1,000 MCG/10 ML SYRINGE ONE (07:25)
[2022-08-15] MEDS ORDERED: PROPOFOL 10 MG/ML 20 ML VIAL IV ONE (07:25)
[2022-08-15] MEDS ORDERED: NEOSTIGMINE 1 MG/ML 10 ML VIAL ONE (07:25)
[2022-08-15] MEDS ORDERED: SUCCINYLCHOLINE CHLORIDE 200 MG/10 ML VIAL IV ONE (07:25)
[2022-08-15] MEDS ORDERED: GLYCOPYRROLATE 0.2 MG/ML 2 ML VIAL ONE (07:25)
[2022-08-15] MEDS ORDERED: GELATIN SPONGE,ABSORB (LARGE) 1 EACH SPONGE TOPICAL ONE (07:33)
[2022-08-15] MEDS ORDERED: LIDOCAINE 0.5%-EPI 1:200,000 50 ML VIAL SQ ONE (07:33)
[2022-08-15] MEDS ORDERED: THROMBIN (BOVINE) 5,000 UNIT VIAL TOPICAL ONE (07:33)
[2022-08-15] MEDS ORDERED: LACTATED RINGERS 1,000 ML IV ONE (08:50)
[2022-08-15] MEDS ORDERED: MAGNESIUM HYDROXIDE 2,400 MG/10 ML CUP PO PRN (10:17)
[2022-08-15] MEDS ORDERED: HYDROmorphone 0.5 MG/0.5 ML SYRINGE IVP PRN (10:17)
[2022-08-15] MEDS ORDERED: BENZOCAINE/MENTHOL LOZENG 1 EACH LOZENGE MUCOUS MEM PRN (10:17)
[2022-08-15] MEDS ORDERED: bisacodyL 10 MG SUPP RECTAL PRN (10:17)
[2022-08-15] MEDS ORDERED: ACETAMINOPHEN TAB 500 MG TAB PO PRN (10:22)
--- NOTE | 2022-08-15 10:27 | P.OP ---
Date of Procedure: 08/15/22 Preoperative Diagnosis: Spondylolisthesis L4 5, grade 2 dynamic. Spinal stenosis L4 5, degenerative disc disease L4 5, low back pain, lower extremity radiculopathy, facet arthropathy Postoperative Diagnosis: Same Anesthesia: GETA Pathology: none sent Condition: stable Disposition: PACU Description of Procedure: DESCRIPTION OF PROCEDURE(S): BRIEF OPERATIVE NOTE Preoperative Diagnosis: Spondylolisthesis L4 5, grade 2 dynamic. Spinal stenosis L4 5, degenerative disc disease L4 5, low back pain, lower extremity radiculopathy, facet arthropathy Postoperative Diagnosis: Same Procedure: Laminectomy and decompression L4 [address] navigation aided Minimally invasive Posterior lateral decompression and facet fusion L4 5 Minimally invasive Transforaminal lumbar interbody fusion for a 360 fusion L4 5 Discectomy for decompression L4 5 Placement of interbody graft L4 5 Use of computer navigation for fusion Local autogenous bone grafting Aspiration of bone marrow from the vertebral body pedicle at L4 on the right Use of bone graft extenders Surgeon: Dr. Corrales Garment Cutter: Ananth PHAN who is present throughout the entire the case persistence during positioning, dissection, exposure, visualization, and all crucial elements of the case as well as closure. Anesthesia: General anesthesia per Dr. Frias Estimated blood loss: Approximately 100 mL Complications: None apparent Components implanted: K2M minimally invasive [place] pedicle screw system withscrews measuring 6.5 mm in diameter to rods one Thomas interbody cage with 10 mL of osteo amp bio4 bone graft substitute and 30 mL of the BX bone fibers to supplement the local autogenous bone graft and bone marrow aspirate Disposition: To recovery room in good stable condition. OPERATIVE INDICATIONS The patient has had severe issues at their lower extremity in her lower back over the past several years with significant worsening over the past several months. Over the past few months the patient had pain at their back and their lower extremities. The patient is having severe radicular symptoms at their lower extremity with weakness. The patient is having significant pain in their back. They are unable to obtain any comfort. We did aggressive conservative treatment with medications therapy and interventional pain management however thery were not having any relief. The patient also showed evidence of a listhesis with obvious L4 5 dynamic instability with significant worsening in flexion and extension but near return to their normal position in supine position. The patient has been through conservative treatment. We discussed various treatment options including surgery, and the patient wishes to proceed with surgery We discussed the risk, patient's alternatives and benefits of surgery including but not limited to, risk of bleeding risk of infection, risk of need for further surgery, risk of decreased, loss of motion, muscle function, malunion nonunion, hardware failure, nerve damage, paralysis, heart attack, blindness and . They understood issues with the current pandemic and the possibility of exposure. OPERATIVE SUMMARY After discussing all the risks, patient alternatives and benefits at length, the patient elected to proceed with surgical intervention, signed informed consent, and presented for their procedure. The patient was seen and examined in the preoperative holding area and the surgical site was marked. The patient was given antibiotics and brought to the operating room. The patient was sedated and intubated by anesthesia in standard fashion. The patient was positioned on to the operating room table in a prone position on the appropriate frame which was well-padded and well molded. We were careful to pad any bony prominences and pressure points. We were careful to maintain the patient's cervical spine and good neutral alignment and position throughout. The patient was prepped and draped in a normal standard fashion. An appropriate timeout and keystone protocol performed. We were able to proceed with the surgery. The local wound area was infiltrated with local anesthetic. Over the right iliac crest I was able to make small stab incisions and establish a guidepin screw fixation to the iliac crest 2. I was able place the computer referencing device over the guidepins to establish an appropriate reference point for the Ziem CT navigation. We then were able to place patient in an appropriate drape and do a navigation spin for visualization and 3-D reconstruction of the lumbar spine. I was able utilize C-arm guidance and navigation to establish appropriate position over the pedicles bilaterally at the appropriate levels at L4 and L5 . With the appropriate levels confirmed was able to make small incisions over the appropriate pedicle sites bilaterally. Utilizing the computer navigation device I was able to establish bony landmarks at the right iliac crest for a bony reference point for the navigation device. I was able to establish a Jamshidi needle over the lateral aspect of the pedicle and advanced the trocar into the pedicle being careful not to breech superiorly inferiorly medially or laterally using computer navigation device. Position was confirmed regularly with AP and lateral images on C-arm and with the computer navigation device at the appropriate levels bilaterally at L4 and L5. I was able to establish the trocar into the pedicle appropriately into the posterior aspect of the vertebral body bilaterally at the appropriate levels. This was done at each of the pedicle positions and each of the vertebrae. At the sup erior vertebrae of L4 on the right I was able to take approximately 25 mL of bone aspiration for use later in the case to supplement the allograft and autograft bone. I was able place the guidewire into the trocar and into the vertebral body appropriately under C-arm guidance. Dissection was taken down over the wire to the appropriate starting position for the screw placed. The appropriate length screw was chosen, threaded over the guidewire and screwed appropriately into the pedicle and vertebral body under C-arm guidance in excellent alignment and position with good bony purchase. This is done at each of the screw sites at the appropriate levels at L4 and L5. With the screws intact I extended the incision to connect the screw hole sites on the most symptomatic side. I dissected down to establish access over the pars and lamina to the base of the spinous process. I was able to expose the facet joint. The capsule the facet was taken down and showed some facet arthrosis at the joint. I was able to use a combination of curettes and Kerrison rongeurs and a high-speed drill to take down the facet joint and do a facetectomy. I was able get excellent foraminal decompression and central decompression with undermining across midline to perform a laminectomy centrally and contralaterally. I was able get good central decompression at L4 5. The ligamentum flavum was taken down to further decompress centrally and at bilateral neural foramen. I was able to expose the disc space and visualize the traversing nerve root. Note was made of some disc protrusion and disc herniat ion that was abutting the traversing nerve root at the level causing further compression of the nerve root at L4 5. I was able to establish a annulotomy at the appropriate level protecting soft tissue and neural structures. Note was made of some disc desiccation at the disc. I performed a complete discectomy with accommodation of curettes and rasps and scrapers. I was able get good endplate preparation at the disc space. I sized for the appropriate size interbody spacer protecting the soft tissue and neural structures. The wound was copiously irrigated and suctioned dry. There is no evidence of any dural tear or leak. I was able to pack the disc space with local autogenous bone graft as well as a small amount of bone graft which was also placed into the interbody cage itself. Protecting the soft tissue structures and neural structures I was able place the interbody cage in good alignment and good position with good fit and fill at the interbody space. Position was confirmed with C-arm guidance. Good hemostasis maintained. There is no evidence of any dural tear or leak. The wound was irrigated and suctioned dry. With the hardware intact, intraoperative C-arm imaging was again taken which showed good alignment and position of the hardware at the appropriate levels of L4 and L5 in good reduction of the listhesis. We were then able to measure, contour and place the rods and appropriate hardware bilaterally. I was able to place capcrews, tighten them down, and torque them with the torque screwdriver appropriately. With this intact I was able to place the local autogenous bone graft with additional bone graft enhancer as necessary into the posterior lateral gutters over the decorticated transverse processes and facet joints on the contralateral side. The remainder of the bone graft was placed over the facet joint on the contralateral side after taking down the facet joint capsule. With the bone graft intact, a stable construct, and good decompression at the appropriate levels, we were able to proceed with closure. Good hemostasis was maintained. There is no evidence of dural tear or leak. The fascia was closed for a watertight closure. he subcuticular tissue was closed with absorbable suture. The wound was cleaned and dried and dressed with the appropriate dressing. The drapes were broken down. The patient was gently rolled back onto their hospital bed being careful to maintain their cervical spine and good neutral alignment and position. They were woken up by anesthesia, extubated, and brought to the recovery room in good stable condition. The patient will be admitted to the hospital for appropriate postoperative care, medical management and monitoring. We will continue to follow them closely about the postoperative course.
[2022-08-15] MEDS ORDERED: HYDROmorphone 0.5 MG/0.5 ML SYRINGE IVP ONE ×4 (10:33→11:03)
--- NOTE | 2022-08-15 10:39 | FL ---
Intraoperative/procedural fluoroscopic services were provided. Total fluoroscopy time is 21 seconds w ith a total of 0 submitted images to PACS. Please see the operative/procedural note for further detai ls.
[2022-08-15 11:00] LABS: Glucose,Whole Blood 191 mg/dL (70-110)
[2022-08-15] MEDS ORDERED: SODIUM CHLORIDE 0.9% 1,000 ML IV ONE (11:29)
[2022-08-15] MEDS: CYCLOBENZAPRINE 10 MG TAB PO PRN ×2 (11:58→17:36)
[2022-08-15] MEDS: cloNIDine HCL 0.1 MG TAB PO SCH ×2 (11:58→16:53)
[2022-08-15] MEDS: CHOLECALCIFEROL 25 MCG (1000 IU) TABLET PO SCH ×2 (11:58→16:53)
[2022-08-15] MEDS: HYDROcodone/APAP 5-325MG 1 EACH TAB PO PRN ×3 (11:58→21:16)
[2022-08-15] MEDS: SODIUM CHLORIDE 0.9% 1,000 ML IV SCH ×2 (12:01→23:21)
[2022-08-15] MEDS: INSULIN ASPART (NovoLOG) 100 UNIT/ML VIAL SQ SCH ×4 (12:35→21:16)
[2022-08-15] MEDS ORDERED: DEXTROSE 50% SYRINGE 50 ML IVP PRN ×2 (12:50)
--- NOTE | 2022-08-15 14:00 | CONS ---
CONSULTATION REASON FOR CONSULTATION: Advice regarding diabetes mellitus, requested by Orthopedics. HISTORY OF PRESENT ILLNESS: This is a 66-year-old gentleman with a past medical history of multiple medical problems including diabetes mellitus, underwent laminectomy decompression L4-L5 for spondylosis. The patient tolerated the procedure well. The patient had really brittle diabetes mellitus, blood sugars 178 to 191 at this time. There is no history of any fever, rigors, or chills at this time. There is no history of any headache or loss of consciousness. PAST MEDICAL HISTORY: Reviewed, include diabetes mellitus, COPD, CVA, rest of the history and chart is also reviewed. HOME MEDICATIONS: Reviewed include clonidine, dose and rest of the medications include insulin doses reviewed. ALLERGIES: Reviewed include blue dye, allergies are reviewed. FAMILY HISTORY: History of cancer. SOCIAL HISTORY: History of current smoking, THC. REVIEW OF SYSTEMS: A 14-point review is negative except as mentioned earlier. PHYSICAL EXAMINATION: VITAL SIGNS: Pulse 65, blood pressure 181/83, respirations 18. HEENT: Conjunctivae normal. NECK: No jugular venous distention. CARDIOVASCULAR: S1, S2 muffled. RESPIRATIONS: Few scattered rhonchi. ABDOMEN: Soft, obese, nontender. LEGS: No edema, no swelling. NERVOUS SYSTEM: No focal deficits. SKIN: No ulcer, rash, bleeding. JOINTS: No active deforming arthropathy. BACK: Status post surgery. LABS: Noted. ASSESSMENT: 1. Status post laminectomy decompression L4-L5 for spondylolisthesis. 2. Diabetes mellitus, type 2, brittle diabetes mellitus. 3. Chronic obstructive pulmonary disease. 4. Gastroesophageal reflux disease. 5. Hypertension. 6. Hyperlipidemia. 7. Multiple medical issues. 8. History of myocardial infarction. RECOMMENDATIONS: This 66-year-old gentleman presented with multiple complex medical issues. Recommended to closely monitor the patient. Resume the home medications. I would recommend at this time to resume the home dose of insulin with added insulin scale. Otherwise, I will continue to monitor. I would also recommend CBC and BMP and monitor renal functions as well. DVT prophylaxis and spirometry. We will follow the patient closely with you. MMODL / IJN: [id number] /
[2022-08-15] MEDS: HYDROmorphone 1 MG/ML 1 ML SYRINGE IVP PRN ×2 (14:29→18:44)
[2022-08-15] MEDS: FAMOTIDINE 20 MG TAB PO SCH (16:52)
[2022-08-15] MEDS: DOXAZOSIN 4 MG TAB PO SCH (16:53)
[2022-08-15] MEDS: PANTOPRAZOLE 40 MG TABLET PO SCH (16:53)
[2022-08-15 17:14] LABS: Glucose,Whole Blood 137 mg/dL (70-110)
[2022-08-15 20:52] LABS: Glucose,Whole Blood 197 mg/dL (70-110)
[2022-08-15] MEDS: INSULIN DETEMIR (LEVEMIR) 100 UNIT/ML SYR SQ SCH (21:16)
[2022-08-15] MEDS: VALSARTAN 80 MG TAB PO SCH (21:16)
[2022-08-16] MEDS: HYDROmorphone 1 MG/ML 1 ML SYRINGE IVP PRN ×5 (01:49→21:22)
[2022-08-16] MEDS: HYDROcodone/APAP 5-325MG 1 EACH TAB PO PRN ×3 (04:21→14:40)
[2022-08-16] MEDS: CYCLOBENZAPRINE 10 MG TAB PO PRN ×3 (04:21→22:40)
[2022-08-16 07:03] LABS: Glucose,Whole Blood 235 mg/dL (70-110)
[2022-08-16 08:29] LABS: Basophils # (A) 0.12 X 10*3/uL (0.00-0.10); Basophils % (A) 0.6 %; Eosinophils # (A) 0.31 X 10*3/uL (0.04-0.35); Eosinophils % (A) 1.5 %; HCT 43.7 % (39.6-50.0); HGB 14.7 g/dL (13.0-17.0); Immature Grans, Automated 0.5 %; Lymphocytes # (A) 0.41 X 10*3/uL (0.90-5.00); MCH 31.7 pg (27.0-32.0); MCHC 33.6 g/dL (32.0-37.0); MCV 94.2 fL (80.0-97.0); Monocytes # (A) 1.37 X 10*3/uL (0.20-1.00); Monocytes % (A) 6.6 %; NRBC Per 100 WBC 0 /100 WBCS (0.0-0.0); Neutrophils # (A) 18.46 X 10*3/uL (1.80-7.70); Neutrophils % (A) 88.8 %; Platelet Count 219 X 10*3/uL (140-440); RBC 4.64 X 10*6/uL (4.40-5.60); RDW 13.6 % (11.5-14.5); WBC 20.77 X 10*3/uL (4.50-10.00)
[2022-08-16 08:43] LABS: African American GFR (CKD) 80.1 (60.0-200.0); Anion Gap 10.4 mmol/L (10.00-18.00); BUN/Creat Ratio 17.09 Ratio (12.00-20.00); Blood Urea Nitrogen 18.8 mg/dL (9.0-27.0); Calcium 8.3 mg/dL (8.7-10.3); Carbon Dioxide 21.6 mmol/L (20.0-27.5); Non-African American GFR(CKD) 69.1 (60.0-200.0); Potassium 4.3 mmol/L (3.5-5.5)
[2022-08-16] MEDS: INSULIN ASPART (NovoLOG) 100 UNIT/ML VIAL SQ SCH ×7 (08:43→20:57)
[2022-08-16] MEDS: ASPIRIN 81 MG PO SCH (08:45)
[2022-08-16] MEDS: cloNIDine HCL 0.1 MG TAB PO SCH ×3 (08:45→16:43)
[2022-08-16] MEDS: DOCUSATE 100 MG CAP PO SCH (08:46)
[2022-08-16] MEDS: CHOLECALCIFEROL 25 MCG (1000 IU) TABLET PO SCH ×3 (08:46→16:43)
[2022-08-16] MEDS: SENNOSIDES-DOCUSATE SODIUM 1 EACH TAB PO SCH (08:46)
[2022-08-16] MEDS: PANTOPRAZOLE 40 MG TABLET PO SCH ×2 (08:46→16:43)
[2022-08-16] MEDS: VALSARTAN 80 MG TAB PO SCH ×2 (08:49→21:23)
[2022-08-16 11:41] LABS: Glucose,Whole Blood 160 mg/dL (70-110)
--- NOTE | 2022-08-16 12:12 | P.PN ---
Progress Note - Text Progress Note Date: 08/16/22 Postoperative day #1 Patient is seen and examined today at bedside. The patient has some pain around the surgical site as expected. Pain is being controlled with medication. He has been ambulating in his room with assistance. He denies any nausea. He says his legs are doing well. He is not yet urinated On his own. Physical Exam Afebrile with stable vital signs Abdomen is soft nontender. Chest has good excursion deep and space expiration The incision site is clean dry and intact. No erythema there is no purulence. Extremities have not had neurologic change from prior to surgery. He has sustained dorsal flexion plantar flexion and EHL intact Calves and thighs were soft nontender without evidence of DVT. Assessment/Plan Postoperative day #1 status post minimally invasive decompression and fusion L4 5 for his dynamic spondylolisthesis with stenosis and facet arthrosis Patient is progressing as expected from the surgery. He seems to be moving well and his lower extremity surgery well. He is tolerating his diet and ambulating. He had his Nolasco discontinued about 6 hours ago and he feels that he will be able to urinate but has not yet urinated on his own. We will continue to monitor this closely. We will continue to increase the patient's mobilization with therapy. We will continue pain control with oral or IV medications. We'll continue to follow patient closely. If he continues to make good progress he may be able to be discharged home tomorrow.
[2022-08-16] MEDS: SODIUM CHLORIDE 0.9% 1,000 ML IV SCH (13:13)
--- NOTE | 2022-08-16 16:09 | P.PN ---
Subjective Progress Note Date: 08/16/22 Patient is a 66-year-old male with insulin-dependent diabetes mellitus that is quite brittle and typical blood sugars around 150, COPD, CVA, and multiple other comorbid conditions who presented for elective decompression laminectomy L4-L5. Patient seen and examined at bedside. His blood sugars have been slightly elevated this morning but he did not take his Levemir last night as he was not eating. He states he will take it tonight as his appetite has returned. We discussed that should he feel that 60 units as too much asked the nurse to page us and we will adjust his insulin accordingly. He denies any chest pain, shortness of breath. His back pain is manageable at this time. He has been up and walking today. General: Nontoxic, no distress, appears at stated age Derm: warm, dry Head: atraumatic, normocephalic, symmetric Eyes: EOMI, no lid lag, anicteric sclera Mouth: no lip lesion, mucus membranes moist Cardiovascular: S1S2 reg, no murmur, positive posterior tibial pulse bilateral, Lungs: CTA bilateral, no rhonchi, no rales , no accessory muscle use Ext: no gross muscle atrophy, no edema, no contractures Neuro: CN II-XI grossly intact, no focal neuro deficits Psych: Alert, oriented, appropriate affect Assessment/plan 66-year-old male status post decompression and fusion L4 5 Diabetes mellitus type 2 brittle, neuropathy -Continue with fixed dose and sliding scale at meals -Continue with Levemir -Continue to monitor blood sugars -Patient's blood sugars usually range around 150. - A1C 6.5 Hypertension, controlled -Continue with Catapres Cardura - follow BP GERD -Pepcid and Protonix Chronic: TIA Hydrocephalus IVS Diverticulitis Hiatal hernia Prior myocardial infarction Thank you for allowing us to participate in the care of this pleasant patient. Do not hesitate to contact us with questions. Someone can be reached from the [facility] hospitalist group all hours of the day at [phone] or via perfect serve. Objective - Vital Signs Vital signs: Vital Signs Temp 98.1 F 08/16/22 13:36 Pulse 93 08/16/22 13:36 Resp 16 08/16/22 13:36 BP 130/74 08/16/22 13:36 Pulse Ox 95 08/16/22 13:36 FiO2 Intake & Output 08/15/22 08/16/22 08/16/22 18:59 06:59 18:59 Intake Total 1950 1450 Output Total 2575 1300 Balance -624 150 Intake: IV 1950 Intake, IV Titration 950 Amount Sodium Chloride 0.9% 1, 900 000 ml @ 75 mls/hr IV . [id number] [facility] Rx#:[id number] ceFAZolin 2 gm In Sodium 50 Chloride 0.9% 50 ml @ 100 mls/hr IVPB ONCE PRN Rx# :[id number] Oral 500 Output: Urine 2500 1300 Estimated Blood Loss 75 Other: Voiding Method Indwelling Catheter Indwelling Catheter - Labs CBC & Chem 7: 08/16/22 06:30 08/16/22 06:30 Labs: Abnormal Lab Results - Last 24 Hours (Table) 08/15/22 08/15/22 08/15/22 Range/Units 13:03 17:13 20:49 WBC (4.50-10.00) X 10*3/uL Immature Gran # (0.00-0.04) X 10*3/uL Neutrophils # (1.80-7.70) X 10*3/uL Lymphocytes # (0.90-5.00) X 10*3/uL Monocytes # (0.20-1.00) X 10*3/uL Basophils # (0.00-0.10) X 10*3/uL Glucose (70-110) mg/dL POC Glucose (mg/dL) 137 H 197 H (70-110) mg/dL Hemoglobin A1c 6.5 H (0.0-6.0) % Calcium (8.7-10.3) mg/dL 08/16/22 08/16/22 08/16/22 Range/Units 06:30 06:30 07:01 WBC 20.77 H (4.50-10.00) X 10*3/uL Immature Gran # 0.10 H (0.00-0.04) X 10*3/uL Neutrophils # 18.46 H (1.80-7.70) X 10*3/uL Lymphocytes # 0.41 L (0.90-5.00) X 10*3/uL Monocytes # 1.37 H (0.20-1.00) X 10*3/uL Basophils # 0.12 H (0.00-0.10) X 10*3/uL Glucose 243 H (70-110) mg/dL POC Glucose (mg/dL) 235 H (70-110) mg/dL Hemoglobin A1c (0.0-6.0) % Calcium 8.3 L (8.7-10.3) mg/dL 08/16/22 Range/Units 11:39 WBC (4.50-10.00) X 10*3/uL Immature Gran # (0.00-0.04) X 10*3/uL Neutrophils # (1.80-7.70) X 10*3/uL Lymphocytes # (0.90-5.00) X 10*3/uL Monocytes # (0.20-1.00) X 10*3/uL Basophils # (0.00-0.10) X 10*3/uL Glucose (70-110) mg/dL POC Glucose (mg/dL) 160 H (70-110) mg/dL Hemoglobin A1c (0.0-6.0) % Calcium (8.7-10.3) mg/dL
[2022-08-16] MEDS: FAMOTIDINE 20 MG TAB PO SCH (16:43)
[2022-08-16] MEDS: DOXAZOSIN 4 MG TAB PO SCH (16:44)
[2022-08-16 17:03] LABS: Glucose,Whole Blood 141 mg/dL (70-110)
[2022-08-16] MEDS: HYDROcodone/APAP 7.5-325MG 1 EACH TAB PO PRN ×2 (18:37→22:39)
[2022-08-16 20:49] LABS: Glucose,Whole Blood 137 mg/dL (70-110)
[2022-08-16] MEDS: INSULIN DETEMIR (LEVEMIR) 100 UNIT/ML SYR SQ SCH (21:42)
[2022-08-17] MEDS: HYDROmorphone 1 MG/ML 1 ML SYRINGE IVP PRN ×2 (01:33→06:15)
[2022-08-17] MEDS: SODIUM CHLORIDE 0.9% 1,000 ML IV SCH (01:37)
[2022-08-17] MEDS: HYDROcodone/APAP 7.5-325MG 1 EACH TAB PO PRN ×2 (03:34→08:30)
[2022-08-17 07:01] LABS: Glucose,Whole Blood 152 mg/dL (70-110)
[2022-08-17 07:43] VITALS: PULSE 94; RESP 16
[2022-08-17] MEDS: INSULIN ASPART (NovoLOG) 100 UNIT/ML VIAL SQ SCH ×4 (08:29→12:39)
[2022-08-17] MEDS: cloNIDine HCL 0.1 MG TAB PO SCH ×2 (08:30→12:38)
[2022-08-17] MEDS: PANTOPRAZOLE 40 MG TABLET PO SCH (08:30)
[2022-08-17] MEDS: CHOLECALCIFEROL 25 MCG (1000 IU) TABLET PO SCH ×2 (08:30→12:39)
[2022-08-17] MEDS: DOCUSATE 100 MG CAP PO SCH (08:30)
[2022-08-17] MEDS: ASPIRIN 81 MG PO SCH (08:30)
[2022-08-17] MEDS: SENNOSIDES-DOCUSATE SODIUM 1 EACH TAB PO SCH (08:30)
[2022-08-17] MEDS: VALSARTAN 80 MG TAB PO SCH (08:31)
[2022-08-17 10:42] LABS: HCT 42.1 % (39.6-50.0); HGB 13.6 g/dL (13.0-17.0); MCH 30.6 pg (27.0-32.0); MCHC 32.3 g/dL (32.0-37.0); MCV 94.8 fL (80.0-97.0); Mean Platelet Volume 10.2 fL (9.5-12.2); NRBC Per 100 WBC 0 /100 WBCS (0.0-0.0); Platelet Count 204 X 10*3/uL (140-440); RBC 4.44 X 10*6/uL (4.40-5.60); RDW 13.8 % (11.5-14.5); WBC 14.62 X 10*3/uL (4.50-10.00)
[2022-08-17] MEDS ORDERED: HYDROcodone/APAP 10-325MG 1 EACH TAB PO PRN (11:11)
--- NOTE | 2022-08-17 11:18 | P.DS ---
Providers Date of admission: 08/16/22 07:03 Attending physician: Beto Corrales Consults: 08/15/22 12:49 Consult Physician Routine Consulting Provider: Monica Prasad Consult Reason/Comments: medical management Do you want consulting provider notified?: Yes Primary care physician: [facility] Course: The patient presented on the day of admission as per their operative note. He underwent minimally invasive decompression and fusion for his dynamic spondylolisthesis as per his operative note. Patient is making good progress postoperatively and has become more mobile. He is still complaining of soreness in his back when changing positions which is expected. He is transitioning from IV medications to oral medications. He is tolerating his regular diet. He is voiding freely. He is passing gas appropriate. Physical Exam The incision site is clean dry and intact. There is no erythema no drainage. There is no purulence no evidence of infection. The dressing is clear without any evidence of any infection Abdomen soft and nontender. Chest has good excursion with deep inspiration and expiration. The patient has active and passive range of motion intact at the upper and lower extremities. There is no acute change in neurologic status. He has sustained dorsal flexion plantarflexion and EHL intact. Hospital Course Postoperative day #2 status post minimally invasive decompression and fusion and lumbar spine for dynamic spondylolisthesis with lower extremity radiculopathy and stenosis. The patient has been making good progress postoperatively. They have completed the prophylactic antibiotics without any signs or symptoms of infection. The patient has been able to advance their diet, and is tolerating diet adequately. The pain was initially controlled with IV medications and is now transitioning appropriately with oral medications. The patient has been able to increase their mobilization. The patient has progressed appropriately. I think they are in good stable condition for discharge today if he cannot really transitioned to oral medications from his IV pain medications. We have increased the oral medication dosage as to what he reports he has been taking at home and if he is able to control his pain then he may be will be discharge home today. They will be sent home with appropriate prescriptions. I answered their questions to the best of my ability in a language that they can understand and they are agreeable with the plan. They will follow up as directed in approximately 2 weeks or sooner if he is having any problems. Patient Condition at Discharge: Fair Plan - Discharge Summary Discharge Rx Participant: No New Discharge Prescriptions: New HYDROcodone/APAP 5-325MG [[place] 5-325] 1 tab PO Q4HR PRN 7 Days #42 tab PRN Reason: Pain HYDROcodone/APAP 10-325MG [[place] 10-325] 1 tab PO Q4HR PRN 7 Days #42 tab PRN Reason: Pain No Action Aspirin EC [Ecotrin Low Dose] 81 mg PO DAILY Omeprazole [PriLOSEC] 20 mg PO AC-BID #60 cap Famotidine [Pepcid] 10 mg PO AC-SUPPER cloNIDine HCL [Catapres] 0.3 mg PO TID-W/MEALS Acetaminophen Tab [Tylenol Tab] 1,000 mg PO Q6HR PRN #30 tablet PRN Reason: Pain Doxazosin [Cardura] 4 mg PO W/SUPPER Insulin Aspart [NovoLOG] 18 units SQ W/BRKFST Valsartan [Diovan] 80 mg PO BID #60 tab Cholecalciferol [Vitamin D3 (25 Mcg = 1000 Iu)] 25 mcg PO TID-W/MEALS Insulin Aspart [NovoLOG Flexpen] 12 units SQ W/LUNCH Insulin Detemir [Levemir Flextouch Pen] 60 units SQ HS Insulin Aspart [NovoLOG Flexpen] 22 units SQ W/SUPPER Docusate [Colace] 100 mg PO DAILY Discharge Medication List Aspirin EC [Ecotrin Low Dose] 81 mg PO DAILY 02/15/20 [History] Omeprazole [PriLOSEC] 20 mg PO AC-BID #60 cap 12/21/21 [Rx] Valsartan [Diovan] 80 mg PO BID #60 tab 12/21/21 [Rx] Cholecalciferol [Vitamin D3 (25 Mcg = 1000 Iu)] 25 mcg PO TID-W/MEALS 02/08/22 [History] Famotidine [Pepcid] 10 mg PO AC-SUPPER 02/08/22 [History] Insulin Aspart [NovoLOG Flexpen] 12 units SQ W/LUNCH 02/08/22 [History] Insulin Aspart [NovoLOG Flexpen] 22 units SQ W/SUPPER 02/08/22 [History] Insulin Detemir [Levemir Flextouch Pen] 60 units SQ HS 02/08/22 [History] cloNIDine HCL [Catapres] 0.3 mg PO TID-W/MEALS 02/08/22 [History] Acetaminophen Tab [Tylenol Tab] 1,000 mg PO Q6HR PRN #30 tablet 02/09/22 [Rx] Docusate [Colace] 100 mg PO DAILY 08/10/22 [History] Doxazosin [Cardura] 4 mg PO W/SUPPER 08/10/22 [History] Insulin Aspart [NovoLOG] 18 units SQ W/BRKFST 08/10/22 [History] HYDROcodone/APAP 5-325MG [[place] 5-325] 1 tab PO Q4HR PRN 7 Days #42 tab 08/16/22 [Rx] HYDROcodone/APAP 10-325MG [[place] 10-325] 1 tab PO Q4HR PRN 7 Days #42 tab 08/17/22 [Rx] Follow up Appointment(s)/Referral(s): Moises Gutierrez DO [Primary Care Provider] - 1 Week Beto Corrales DO [Doctor of Osteopathic Medicine] - 2 Weeks Activity/Diet/Wound Care/Special Instructions: Keep site clean. May shower with waterproof Tegaderm intact. Do not soak in a tub. After 72 hours postoperatively, patient May remove dressing and then may shower with area uncovered. Leave glue intact and allow it to fray off on its own. May ambulate as tolerated. Avoid heavy or rigorous activity. No repetitive bending twisting or lifting. No overhead work. Discharge Disposition: HOME SELF-CARE
[2022-08-17 11:23] LABS: Glucose,Whole Blood 191 mg/dL (70-110)
[2022-08-17] MEDS: CYCLOBENZAPRINE 10 MG TAB PO PRN (12:44)
[2022-08-17 13:36] VITALS: BP 167/84; TEMP 99.1
--- NOTE | 2022-08-17 15:23 | P.PN ---
Subjective Progress Note Date: 08/17/22 (delayed charting seen at 11am) Patient is a 66-year-old male with insulin-dependent diabetes mellitus that is quite brittle and typical blood sugars around 150, COPD, CVA, and multiple other comorbid conditions who presented for elective decompression laminectomy L4-L5. Patient seen and examined at bedside. He reports more pain than yesterday. He is concerned about resuming his home Levemir dosing as he states he is having issues bottoming out in the morning. He previously was on Levemir 50 units at night and was doing well. We discussed resuming Levemir 50 units once he felt he is eating and drinking well. He will increase using the 2 x 2 by to rule which was explained in detail to the patient and added to his discharge. General: Nontoxic, no distress, appears at stated age Derm: warm, dry Head: atraumatic, normocephalic, symmetric Eyes: EOMI, no lid lag, anicteric sclera Mouth: no lip lesion, mucus membranes moist Cardiovascular: S1S2 reg, no murmur, positive posterior tibial pulse bilateral, Lungs: CTA bilateral, no rhonchi, no rales , no accessory muscle use Ext: no gross muscle atrophy, no edema, no contractures Neuro: CN II-XI grossly intact, no focal neuro deficits Psych: Alert, oriented, appropriate affect Assessment/plan 66-year-old male status post decompression and fusion L4 5 Diabetes mellitus type 2 brittle, neuropathy -Continue with fixed dose and sliding scale at meals -Continue with Levemir, took 10 units last evening. New home med orders for l evemir 50 units once eating normally added to D/C summary as patient with hypoglycemia at home. Also added instructions on how to self up titrate using the 2 by 2 by 2 method. -Continue to monitor blood sugars -Patient's blood sugars usually range around 150. - A1C 6.5 Hypertension, controlled -Continue with CataprGaston burton - follow BP GERD -Pepcid and Protonix Chronic: TIA Hydrocephalus IVS Diverticulitis Hiatal hernia Prior myocardial infarction Home med rec addressed for discharge. Thank you for allowing us to participate in the care of this pleasant patient. Do not hesitate to contact us with questions. Someone can be reached from the [facility]– [place]Note 2[place] hospitalist group all hours of the day at [phone] or via perfect serve. Objective - Vital Signs Vital signs: Vital Signs Temp 99.1 F 08/17/22 12:00 Pulse 94 08/17/22 12:00 Resp 16 08/17/22 12:00 BP 167/84 08/17/22 12:00 Pulse Ox 94 L 08/17/22 12:00 FiO2 Intake & Output 08/16/22 08/17/22 08/17/22 18:59 06:59 18:59 Intake Total 240 1600 Balance 240 1600 Intake: Intake, IV Titration 240 600 Amount Sodium Chloride 0.9% 1, 240 600 000 ml @ 75 mls/hr IV . [id number] OPAL Rx#:[id number] Oral 1000 Other: Voiding Method Indwelling Catheter Toilet Toilet # Voids 3 2 - Labs CBC & Chem 7: 08/17/22 07:02 08/16/22 06:30 Labs: Abnormal Lab Results - Last 24 Hours (Table) 08/16/22 08/16/22 08/17/22 Range/Units 17:01 20:46 07:00 WBC (4.50-10.00) X 10*3/uL POC Glucose (mg/dL) 141 H 137 H 152 H (70-110) mg/dL 08/17/22 08/17/22 Range/Units 07:02 11:21 WBC 14.62 H (4.50-10.00) X 10*3/uL POC Glucose (mg/dL) 191 H (70-110) mg/dL
== END 2022-08-17 15:38 | disposition home or self-care (01) ==
LOC: OR 06:14 → 5NMEDONC 10:05 → OR 08-16 07:03
PROVIDERS: ADMIT Orthopaedic Surgery Orthopaedic Surgery of the Spine; ATTEND Orthopaedic Surgery Orthopaedic Surgery of the Spine
DX: M43.16 Spondylolisthesis, lumbar region (principal); M48.061 Spinal stenosis, lumbar region without neurogenic claudication; M47.26 Other spondylosis with radiculopathy, lumbar region; E11.40 Type 2 diabetes mellitus with diabetic neuropathy, unspecified; J44.9 Chronic obstructive pulmonary disease, unspecified; I25.10 Atherosclerotic heart disease of native coronary artery without angina pectoris; Z86.73 Personal history of transient ischemic attack (TIA), and cerebral infarction without residual deficits; Z80.9 Family history of malignant neoplasm, unspecified; K21.9 Gastro-esophageal reflux disease without esophagitis; I10 Essential (primary) hypertension; G91.9 Hydrocephalus, unspecified; E78.5 Hyperlipidemia, unspecified; I25.2 Old myocardial infarction; F17.210 Nicotine dependence, cigarettes, uncomplicated; Z90.49 Acquired absence of other specified parts of digestive tract; Z98.1 Arthrodesis status; K44.9 Diaphragmatic hernia without obstruction or gangrene; Z87.19 Personal history of other diseases of the digestive system; Z98.890 Other specified postprocedural states; Z79.4 Long term (current) use of insulin; Z79.899 Other long term (current) drug therapy; Z88.6 Allergy status to analgesic agent; Z88.5 Allergy status to narcotic agent; Z88.8 Allergy status to other drugs, medicaments and biological substances
CPT/HCPCS: 97162; 86900; 86901; 80048; 85025; 85027; 86850; 83036; 72100; 22630; 20931; G0378 ×2; C1713 ×2; C1762; J2250; J0330; J2710; J0690 ×2; J3010; J1170 ×4; J2370; J2704; J2001

== ENCOUNTER → 2022-08-28 | Outpatient (CLI) | payer MEDICARE ==
--- NOTE | 2022-08-28 13:08 | US ---
EXAMINATION TYPE: US kidneys/renal and bladder DATE OF EXAM: 08/28/2022 COMPARISON: None CLINICAL HISTORY: 66-year-old male R31.29 OTHER MICROSCOPIC HEMATURIA. Known cysts, microscopic hemat uria TECHNIQUE: Multiple sonographic images of the kidneys and bladder are obtained. FINDINGS: EXAM MEASUREMENTS: Right Kidney: 10.0 x 4.9 x 6.0 cm Left Kidney: 9.2 x 3.9 x 6.4 cm Right Kidney: 2 cysts seen, largest inferolateral = 6.7 x 6.3 x 5.6cm. The smaller cyst measures 2.2 cm. No hydronephrosis. Left Kidney: No hydronephrosis or masses seen Bladder: wnl IMPRESSION: 2 simple cysts within the right kidney measuring 6.7 cm and 2.2 cm. No hydronephrosis on either side.
== END | disposition home or self-care (01) ==
LOC: RADUSWWP 10:12
PROVIDERS: ATTEND Internal Medicine
DX: N28.1 Cyst of kidney, acquired (principal); R31.29 Other microscopic hematuria
CPT/HCPCS: 76770

== ENCOUNTER 2023-03-19 07:34 | Day surgery (SDC) | payer MEDICARE ==
[2023-03-12 15:38] VITALS: BMI 31.3
[~2023-03-19 07:34] MED LIST changes: +LACTATED RINGERS 1,000 ML IV SCH; -ceFAZolin 1,000 MG in SODIUM CHLORIDE 0.9% IRRIGATIO 1,000 ML IRRIGATION PRN
[2023-03-19 08:21] VITALS: TEMP 97.7
[2023-03-19] MEDS ORDERED: LIDOCAINE 1% (10MG/ML) FOR IV START INTRADERMA ONE (08:21)
[2023-03-19 08:23] LABS: Glucose,Whole Blood 175 mg/dL (70-110)
[2023-03-19] MEDS ORDERED: PROPOFOL 10 MG/ML 20 ML VIAL IV ONE (08:59)
--- NOTE | 2023-03-19 09:19 | P.PCN ---
Date of Procedure: 03/19/23 Procedure(s) Performed: BRIEF HISTORY: Patient is a 67-year-old pleasant white male scheduled for an elective colonoscopy as a part of screening for colon cancer/positive cologuard PROCEDURE PERFORMED: Colonoscopy with biopsy. PREOPERATIVE DIAGNOSIS: Screening for colon cancer/positive cologuard. IV sedation per Anesthesia. PROCEDURE: After informed consent was obtained, the patient, was brought into the endoscopy unit. IV sedation was administered by Anesthesia under continuous monitoring. Digital rectal examination was normal. Initially the Olympus CF-160 flexible video colonoscope was then inserted in the rectum, gradually advanced into the cecum without any difficulty. Careful examination was performed as the scope was gradually being withdrawn. Ileocecal valve and the appendiceal orifice were visualized and appeared normal. Prep was excellent. Mucosa of the cecum, ascending colon, transverse colon, normal. In the descending colon there was a 5 mm sessile polyp removed by cold biopsy. Rest of the descending colon, sigmoid colon, and rectum appeared normal. Retroflexion was performed in the rectum and no lesions were seen. The patient tolerated the procedure well. IMPRESSION: 5 mm sessile desscending colon polyp status post cold biopsy Rest of the colon appeared normal RECOMMENDATIONS: Findings of this examination were discussed with the patient as well as his family. He was advised to follow with the biopsy results. If the biopsies adenoma he can have a repeat colonoscopy in 5 years..
[2023-03-19 09:41] VITALS: BP 138/92; PULSE 78; RESP 18
[2023-03-19 09:47] LABS: Glucose,Whole Blood 177 mg/dL (70-110)
== END 2023-03-19 10:01 | disposition home or self-care (01) ==
LOC: ORWHC2ENDO 07:34
PROVIDERS: ATTEND Internal Medicine Gastroenterology
DX: K63.5 Polyp of colon (principal); I25.2 Old myocardial infarction; I10 Essential (primary) hypertension; I25.10 Atherosclerotic heart disease of native coronary artery without angina pectoris; K21.9 Gastro-esophageal reflux disease without esophagitis; E11.9 Type 2 diabetes mellitus without complications; Z79.82 Long term (current) use of aspirin; Z88.5 Allergy status to narcotic agent; Z79.899 Other long term (current) drug therapy
CPT/HCPCS: 45380; J2704; 88305

== ENCOUNTER 2023-03-19 18:27 | Emergency (ER) | payer MEDICARE ==
[2023-03-19 19:02] VITALS: BP 91/54; PULSE 80; RESP 20; TEMP 98
[2023-03-19 19:09] LABS: Glucose,Whole Blood 128 mg/dL (70-110)
[2023-03-19 20:33] LABS: Basophils # (A) 0.1 k/uL (0-0.2); Basophils % (A) 1 %; Eosinophils # (A) 0.2 k/uL (0-0.7); Eosinophils % (A) 1 %; HCT 45.2 % (39.0-53.0); HGB 15.4 gm/dL (13.0-17.5); Lymphocytes # (A) 1.4 k/uL (1.0-4.8); Lymphocytes % (A) 8 %; MCH 32.1 pg (25.0-35.0); MCV 94.4 fL (80.0-100.0); Mean Platelet Volume 7.2; Monocytes # (A) 0.8 k/uL (0-1.0); Monocytes % (A) 5 %; Neutrophils # (A) 14.2 k/uL (1.3-7.7); Neutrophils % (A) 85 %; Platelet Count 211 k/uL (150-450); RBC 4.78 m/uL (4.30-5.90); RDW 13.3 % (11.5-15.5); WBC 16.8 k/uL (3.8-10.6)
--- NOTE | 2023-03-19 20:39 | ED ---
General Adult HPI - General Chief complaint: Syncope Stated complaint: hypoglycemic Time Seen by Provider: 03/19/23 18:45 Source: patient, EMS Mode of arrival: EMS - History of Present Illness Initial comments: This is a 67-year-old male with a past medical history including diabetes and hypertension presents emergency department via EMS for a syncopal episode. It was reported that the patient had a syncopal episode while at the [employer] for dinner. The patient stated that he checked her blood sugar was 91 and he proceeded to take his insulin prior to eating dinner. The patient stated that he normally has a blood sugar around 200s and that 91 was low for him however he proceeded to take his medication despite using any food or glucose. The patient then noted 15 minutes and to eating, he "went fuzzy" in which the stated that the patient did slump over. EMS was called and the blood sugar was noted to be 60. On arrival in the emergency department, the patient was back to his baseline and did not complain of any acute pain or distress. The patient denied any lightheadedness or dizziness. - Related Data Home Medications Medication Instructions Recorded Confirmed Aspirin EC [Ecotrin Low Dose] 81 mg PO DAILY 02/15/20 03/19/23 Cholecalciferol [Vitamin D3 (25 25 mcg PO TID-W/MEALS 02/08/22 03/19/23 Mcg = 1000 Iu)] Famotidine [Pepcid] 10 mg PO AC-SUPPER 02/08/22 03/19/23 Insulin Aspart [NovoLOG Flexpen] 12 units SQ W/LUNCH 02/08/22 03/19/23 Insulin Aspart [NovoLOG Flexpen] 22 units SQ W/SUPPER 02/08/22 03/19/23 cloNIDine HCL [Catapres] 0.3 mg PO TID-W/MEALS 02/08/22 03/19/23 Docusate [Colace] 100 mg PO DAILY 08/10/22 03/19/23 Doxazosin [Cardura] 4 mg PO W/SUPPER 08/10/22 03/19/23 Insulin Aspart [NovoLOG] 18 units SQ W/BRKFST 08/10/22 03/19/23 Previous Rx's Medication Instructions Recorded Omeprazole [PriLOSEC] 20 mg PO AC-BID #60 cap 12/21/21 Valsartan [Diovan] 80 mg PO BID #60 tab 12/21/21 Acetaminophen Tab [Tylenol Tab] 1,000 mg PO Q6HR PRN #30 tablet 02/09/22 Insulin Detemir [Levemir Flextouch 50 units SQ HS #0 08/17/22 Pen] Allergies Allergy/AdvReac Type Severity Reaction Status Date / Time blue dye Allergy Severe Rash/Hives Verified 03/19/23 18:41 ezetimibe [From Zetia] Allergy Severe Abdominal Verified 03/19/23 18:41 Pain Deeutgs-SPM-BaJ Reductase Allergy Severe Abdominal Verified 03/19/23 18:41 Inhibitor Pain codeine Allergy Itching Verified 03/19/23 18:41 naproxen sodium [From Aleve] Allergy Rash/Hives Verified 03/19/23 18:41 ondansetron [From Zofran] Allergy Rash/Hives Verified 03/19/23 18:41 gabapentin AdvReac Abdominal Verified 03/19/23 18:41 Pain naloxegol [From Movantik] AdvReac Nausea & Verified 03/19/23 18:41 Vomiting Review of Systems ROS Statement: Those systems with pertinent positive or pertinent negative responses have been documented in the HPI. ROS Other: All systems not noted in ROS Statement are negative. Past Medical History Past Medical History: Chest Pain / Angina, COPD, CVA/TIA, Diabetes Mellitus, GERD/Reflux, Hearing Disorder / Deafness, Hyperlipidemia, Hypertension, Myocardial Infarction ([place]), Renal Disease Additional Past Medical History / Comment(s): IDDM type II, neuropathy bilateral feet, CVA with no residual, TIA, hydrocephalus with LINE RUNNER shunt, recent admissions for abdominal pain/severe depression 4-5 months ago, IBS, diverticulitis/bowel resection, hiatal hernia, DJD, occasional cervical pain, migraines, skull/head injury at age 19 with lengthy hospitalization, nephrolithiasis-passed stone on his own, ANDREAFSKI bilaterally. Last Myocardial Infarction Date:: 2020 History of Any Multi-Drug Resistant Organisms: None Reported Past Surgical History: Back Surgery, Bowel Resection, Cholecystectomy, Heart Catheterization With Stent, Orthopedic Surgery Additional Past Surgical History / Comment(s): 02/18/20 Robot assisted laparoscopy/extensive lysis of adhesions, LINE RUNNER shunt, 2019 R elbow tendon surgery, L knee arthroscopy, L hand amp d/t industrial accident, cervical fusion, bowel resection d/t diverticulitis, EGD, colonoscopy, hemorrhoidectomy, Heart cath wit h 2 stents on 08/26/2020 EGD, peptic ulcers, Past Anesthesia/Blood Transfusion Reactions: No Reported Reaction Additional Past Anesthesia/Blood Transfusion Reaction / Comment(s): No blood transfusion Date of Last Stent Placement:: 2020 Past Psychological History: Anxiety, Depression Smoking Status: Current every day smoker Past Alcohol Use History: None Reported Past Drug Use History: Marijuana - Past Family History Mother Family Medical History: Cancer Additional Family Medical History / Comment(s): Kidney cancer. Father Family Medical History: Cancer Additional Family Medical History / Comment(s): Pancreatic cancer. General Exam Limitations: no limitations General appearance: alert, in no apparent distress Head exam: Present: atraumatic, normocephalic, normal inspection Eye exam: Present: normal appearance, PERRL Pupils: Present: normal accommodation ENT exam: Present: normal exam, normal oropharynx, mucous membranes moist Neck exam: Present: normal inspection, full ROM Respiratory exam: Present: normal lung sounds bilaterally Cardiovascular Exam: Present: regular rate, normal rhythm, normal heart sounds GI/Abdominal exam: Present: soft, normal bowel sounds Extremities exam: Present: normal inspection, full ROM, other (Left hand amputation) Back exam: Present: normal inspection, full ROM Neurological exam: Present: alert, oriented X3, CN II-XII intact Psychiatric exam: Present: normal affect, normal mood Skin exam: Present: warm, dry Course Vital Signs 03/19/23 19:00 Temperature 98.0 F Pulse Rate 80 Respiratory 20 Rate Blood Pressure 91/54 O2 Sat by Pulse 92 L Oximetry EKG Findings - EKG Comments: EKG Findings:: An EKG was obtained and was interpreted by myself showing a rate of 70, NJ interval 175, QR gnosticism of 101 and QTC 398. This EKG showed a normal sinus rhythm with no ST segment elevation or depression noted. Medical Decision Making - Medical Decision Making Was pt. sent in by a medical professional or institution (, PA, PORTFOLIO ASSISTANT, urgent care, hospital, or care home...) When possible be specific @ -No Did you speak to anyone other than the patient for history (EMS, parent, family, police, friend...)? What history was obtained from this source @ -Yes, the patient's was at the bedside stated the patient did slump over and was passed out for a few seconds before EMS arrived. Did you review nursing and triage notes (agree or disagree)? Why? @ -I reviewed and agree with nursing and triage notes Were old charts reviewed (outside hosp., previous admission, EMS record, old EKG, old radiological studies, urgent care reports/EKG's, care home records)? Report findings @ -No old charts were reviewed Differential Diagnosis (chest pain, altered mental status, abdominal pain women, abdominal pain men, vaginal bleeding, weakness, fever, dyspnea, syncope, headache, dizziness, GI bleed, back pain, seizure, CVA, palpatations, mental health)? @ -Hypoglycemia, electrolyte abnormality, ACS EKG interpreted by me (3pts min.). @ -As above X-rays interpreted by me (1pt min.). @ -Chest x-ray was obtained and was interpreted by myself showing no acute process. CT interpreted by me (1pt min.). @ -None done U/S interpreted by me (1pt. min.). @ -None done What testing was considered but not performed or refused? (CT, X-rays, U/S, labs)? Why? @ -None What meds were considered but not given or refused? Why? @ -None Did you discuss the management of the patient with other professionals (professionals i.e. , PA, PORTFOLIO ASSISTANT, lab, RT, psych nurse, social media editor, outpatient physical therapist, teacher, property and supply officer, case mgr)? Give summary @ -No Was smoking cessation discussed for >3mins.? @ -No Was critical care preformed (if so, how long)? @ -No Were there social determinants of health that impacted care today? How? (Homelessness, low income, unemployed, alcoholism, drug addiction, transportation, low edu. Level, literacy, decrease access to med. care, fci, rehab)? @ -No Was there de-escalation of care discussed even if they declined (Discuss DNR or withdrawal of care, Hospice)? DNR status @ -No What co-morbidities impacted this encounter? (DM, HTN, Smoking, COPD, CAD, Cancer, CVA, ARF, Chemo, Hep., AIDS, mental health diagnosis, sleep apnea, morbid obesity)? @ -Diabetes, hypertension Was patient admitted / discharged? Hospital course, mention meds given and route, prescriptions, significant lab abnormalities, going to OR and other pertinent info. @ -The patient was seen and evaluated emergency department. Physical exam, the patient was resting in bed without any acute distress. Vital signs admission were stable. Due to the nature the patient's complaints, laboratory workup was obtained and was largely within normal limits. The patient likely had a syncopal episode secondary to hypoglycemia that had resolved. This is likely secondary to the patient giving himself insulin despite eating while his blood sugar was low. The patient remained stable and was stable for discharge home to follow-up with his primary care physician. The patient was advised report back to the emergency department if his symptoms became acutely worse. The patient was agreeable to this and all his questions were answered. The patient was discharged home in stable condition with his . Undiagnosed new problem with uncertain prognosis? @ -No Drug Therapy requiring intensive monitoring for toxicity (Heparin, Nitro, Insulin, Cardizem)? @ -No Were any procedures done? @ -No Diagnosis/symptom? @ -Syncope likely secondary to hypoglycemia, resolved Acute, or Chronic, or Acute on Chronic? @ -Acute Uncomplicated (without systemic symptoms) or Complicated (systemic symptoms)? @ -Uncomplicated Side effects of treatment? @ -No Exacerbation, Progression, or Severe Exacerbation? @ -No Poses a threat to life or bodily function? How? (Chest pain, [place], [place], pneumonia, PE, COPD, DKA, ARF, appy, cholecystitis, CVA, Diverticulitis, Homicidal, Suicidal, threat to staff... and all critical care pts) @ -No - Lab Data Result diagrams: 03/19/23 20:15 03/19/23 20:15 Lab Results 03/19/23 03/19/23 03/19/23 Range/Units 19:06 20:15 20:15 WBC 16.8 H (3.8-10.6) k/uL RBC 4.78 (4.30-5.90) m/uL Hgb 15.4 (13.0-17.5) gm/dL Hct 45.2 (39.0-53.0) % MCV 94.4 (80.0-100.0) fL MCH 32.1 (25.0-35.0) pg MCHC 34.0 (31.0-37.0) g/dL RDW 13.3 (11.5-15.5) % Plt Count 211 (150-450) k/uL MPV 7.2 Neutrophils % 85 % Lymphocytes % 8 % Monocytes % 5 % Eosinophils % 1 % Basophils % 1 % Neutrophils # 14.2 H (1.3-7.7) k/uL Lymphocytes # 1.4 (1.0-4.8) k/uL Monocytes # 0.8 (0-1.0) k/uL Eosinophils # 0.2 (0-0.7) k/uL Basophils # 0.1 (0-0.2) k/uL Sodium 138 (137-145) mmol/L Potassium 4.4 (3.5-5.1) mmol/L Chloride 106 (98-107) mmol/L Carbon Dioxide 25 (22-30) mmol/L Anion Gap 7 mmol/L BUN 34 H (9-20) mg/dL Creatinine 1.93 H (0.66-1.25) mg/dL Est GFR (CKD-EPI)AfAm 40 (>60 ml/min/1.73 sqM) Est GFR (CKD-EPI)NonAf 35 (>60 ml/min/1.73 sqM) Glucose 75 (74-99) mg/dL POC Glucose (mg/dL) 128 H (70-110) mg/dL POC Glu Custody Assistant ID Eleonora Benitez Calcium 8.4 (8.4-10.2) mg/dL Total Bilirubin 1.0 (0.2-1.3) mg/dL AST 20 (17-59) U/L ALT 23 (4-49) U/L Alkaline Phosphatase 84 (38-126) U/L Troponin I (0.000-0.034) ng/mL Total Protein 6.2 L (6.3-8.2) g/dL Albumin 3.7 (3.5-5.0) g/dL 03/19/23 Range/Units 20:15 WBC (3.8-10.6) k/uL RBC (4.30-5.90) m/uL Hgb (13.0-17.5) gm/dL Hct (39.0-53.0) % MCV (80.0-100.0) fL MCH (25.0-35.0) pg MCHC (31.0-37.0) g/dL RDW (11.5-15.5) % Plt Count (150-450) k/uL MPV Neutrophils % % Lymphocytes % % Monocytes % % Eosinophils % % Basophils % % Neutrophils # (1.3-7.7) k/uL Lymphocytes # (1.0-4.8) k/uL Monocytes # (0-1.0) k/uL Eosinophils # (0-0.7) k/uL Basophils # (0-0.2) k/uL Sodium (137-145) mmol/L Potassium (3.5-5.1) mmol/L Chloride (98-107) mmol/L Carbon Dioxide (22-30) mmol/L Anion Gap mmol/L BUN (9-20) mg/dL Creatinine (0.66-1.25) mg/dL Est GFR (CKD-EPI)AfAm (>60 ml/min/1.73 sqM) Est GFR (CKD-EPI)NonAf (>60 ml/min/1.73 sqM) Glucose (74-99) mg/dL POC Glucose (mg/dL) (70-110) mg/dL POC Glu Custody Assistant ID Calcium (8.4-10.2) mg/dL Total Bilirubin (0.2-1.3) mg/dL AST (17-59) U/L ALT (4-49) U/L Alkaline Phosphatase (38-126) U/L Troponin I 0.018 (0.000-0.034) ng/mL Total Protein (6.3-8.2) g/dL Albumin (3.5-5.0) g/dL Disposition Clinical Impression: Hypoglycemia, Syncope Disposition: HOME SELF-CARE Condition: Stable Instructions (If sedation given, give patient instructions): Hypoglycemia in a Person with Diabetes (DC) Is patient prescribed a controlled substance at d/c from ED?: No Referrals: Britton Guido MD [Primary Care Provider] - 1-2 days Time of Disposition: 21:00
[2023-03-19 20:44] LABS: ALT 23 U/L (4-49); AST 20 U/L (17-59); African American GFR (CKD) 40 (>60 ml/min/1.73 sqM); Albumin 3.7 g/dL (3.5-5.0); Alkaline Phosphatase 84 U/L (38-126); Anion Gap 7 mmol/L; Blood Urea Nitrogen 34 mg/dL (9-20); Calcium 8.4 mg/dL (8.4-10.2); Carbon Dioxide 25 mmol/L (22-30); Chloride 106 mmol/L (98-107); Glucose 75 mg/dL (74-99); Non-African American GFR(CKD) 35 (>60 ml/min/1.73 sqM); Potassium 4.4 mmol/L (3.5-5.1); Sodium 138 mmol/L (137-145); Total Protein 6.2 g/dL (6.3-8.2)
--- NOTE | 2023-03-19 20:56 | XR ---
EXAMINATION TYPE: XR chest 2V DATE OF EXAM: 03/19/2023 8:42 PM COMPARISON: Chest radiographs from 08/03/2022. TECHNIQUE: XR chest 2V Frontal and lateral views of the chest. CLINICAL INDICATION:Male, 67 years old with history of Syncope; FINDINGS: Lungs/Pleura: There is no evidence of pleural effusion, focal consolidation, or pneumothorax. Pulmonary vascularity: Unremarkable. Heart/mediastinum: Cardiomediastinal silhouette is enlarged and stable. Musculoskeletal: No acute osseous pathology. Other findings: None Lines/Tubes: Ventriculoperitoneal shunt tubing noted along the right aspect of the radiograph. IMPRESSION: No acute cardiopulmonary disease/process.
== END 2023-03-19 21:44 | disposition home or self-care (01) ==
LOC: EC 18:27
DX: E11.649 Type 2 diabetes mellitus with hypoglycemia without coma (principal); R55 Syncope and collapse; J44.9 Chronic obstructive pulmonary disease, unspecified; I10 Essential (primary) hypertension; I25.2 Old myocardial infarction; F17.200 Nicotine dependence, unspecified, uncomplicated; F12.90 Cannabis use, unspecified, uncomplicated; Z86.59 Personal history of other mental and behavioral disorders; Z86.73 Personal history of transient ischemic attack (TIA), and cerebral infarction without residual deficits; Z79.82 Long term (current) use of aspirin; Z79.4 Long term (current) use of insulin; Z79.899 Other long term (current) drug therapy; Z91.041 Radiographic dye allergy status; Z88.5 Allergy status to narcotic agent; Z88.8 Allergy status to other drugs, medicaments and biological substances; Z88.6 Allergy status to analgesic agent
CPT/HCPCS: 36415; 71046; 80053; 84484; 85025; 93005; 99284

== ENCOUNTER 2023-05-20 00:32 | Emergency (ER) | payer MEDICARE ==
[2023-05-20 00:45] VITALS: BP 144/71; PULSE 82; RESP 18; TEMP 98
--- NOTE | 2023-05-20 01:14 | ED ---
ENT HPI - General Chief complaint: ENT Stated complaint: Foreign Object in Ear Time Seen by Provider: 05/20/23 00:59 Source: patient Mode of arrival: ambulatory Limitations: no limitations - History of Present Illness Initial comments: Patient presents to ER after the head of acute became lodged in his ear canal approximately one hour prior to arrival. Cannot remove it so he came to the ER. No other complaints. - Related Data Home Medications Medication Instructions Recorded Confirmed Aspirin EC [Ecotrin Low Dose] 81 mg PO DAILY 02/15/20 03/19/23 Cholecalciferol [Vitamin D3 (25 25 mcg PO TID-W/MEALS 02/08/22 03/19/23 Mcg = 1000 Iu)] Famotidine [Pepcid] 10 mg PO AC-SUPPER 02/08/22 03/19/23 Insulin Aspart [NovoLOG Flexpen] 12 units SQ W/LUNCH 02/08/22 03/19/23 Insulin Aspart [NovoLOG Flexpen] 22 units SQ W/SUPPER 02/08/22 03/19/23 cloNIDine HCL [Catapres] 0.3 mg PO TID-W/MEALS 02/08/22 03/19/23 Docusate [Colace] 100 mg PO DAILY 08/10/22 03/19/23 Doxazosin [Cardura] 4 mg PO W/SUPPER 08/10/22 03/19/23 Insulin Aspart [NovoLOG] 18 units SQ W/BRKFST 08/10/22 03/19/23 Previous Rx's Medication Instructions Recorded Omeprazole [PriLOSEC] 20 mg PO AC-BID #60 cap 12/21/21 Valsartan [Diovan] 80 mg PO BID #60 tab 12/21/21 Acetaminophen Tab [Tylenol Tab] 1,000 mg PO Q6HR PRN #30 tablet 02/09/22 Insulin Detemir [Levemir Flextouch 50 units SQ HS #0 08/17/22 Pen] Allergies Allergy/AdvReac Type Severity Reaction Status Date / Time blue dye Allergy Severe Rash/Hives Verified 03/19/23 18:41 ezetimibe [From Zetia] Allergy Severe Abdominal Verified 03/19/23 18:41 Pain Xcxdiut-SOF-CzX Reductase Allergy Severe Abdominal Verified 03/19/23 18:41 Inhibitor Pain codeine Allergy Itching Verified 03/19/23 18:41 naproxen sodium [From Aleve] Allergy Rash/Hives Verified 03/19/23 18:41 ondansetron [From Zofran] Allergy Rash/Hives Verified 03/19/23 18:41 gabapentin AdvReac Abdominal Verified 03/19/23 18:41 Pain naloxegol [From Movantik] AdvReac Nausea & Verified 03/19/23 18:41 Vomiting Review of Systems ROS Statement: Those systems with pertinent positive or pertinent negative responses have been documented in the HPI. ROS Other: All systems not noted in ROS Statement are negative. Past Medical History Past Medical History: Chest Pain / Angina, COPD, CVA/TIA, Diabetes Mellitus, GERD/Reflux, Hearing Disorder / Deafness, Hyperlipidemia, Hypertension, Myocardial Infarction ([place]), Renal Disease Additional Past Medical History / Comment(s): IDDM type II, neuropathy bilateral feet, CVA with no residual, TIA, hydrocephalus with CAREER PLACEMENT SPECIALIST shunt, recent admissions for abdominal pain/severe depression 4-5 months ago, IBS, diverticulitis/bowel resection, hiatal hernia, DJD, occasional cervical pain, migraines, skull/head injury at age 19 with lengthy hospitalization, nephrolithiasis-passed stone on his own, ORUTSARARMIUT bilaterally. Last Myocardial Infarction Date:: 2020 History of Any Multi-Drug Resistant Organisms: None Reported Past Surgical History: Back Surgery, Bowel Resection, Cholecystectomy, Heart Catheterization With Stent, Orthopedic Surgery Additional Past Surgical History / Comment(s): 02/18/20 Robot assisted laparoscopy/extensive lysis of adhesions, CAREER PLACEMENT SPECIALIST shunt, 2019 R elbow tendon surgery, L knee arthroscopy, L hand amp d/t industrial accident, cervical fusion, bowel resection d/t diverticulitis, EGD, colonoscopy, hemorrhoidectomy, Heart cath with 2 stents on 08/26/2020 EGD, peptic ulcers, Past Anesthesia/Blood Transfusion Reactions: No Reported Reaction Additional Past Anesthesia/Blood Transfusion Reaction / Comment(s): No blood transfusion Date of Last Stent Placement:: 2020 Past Psychological History: Anxiety, Depression Smoking Status: Current every day smoker Past Alcohol Use History: None Reported Past Drug Use History: Marijuana - Past Family History Mother Family Medical History: Cancer Additional Family Medical History / Comment(s): Kidney cancer. Father Family Medical History: Cancer Additional Family Medical History / Comment(s): Pancreatic cancer. General Exam Limitations: no limitations General appearance: alert, in no apparent distress Head exam: Present: atraumatic, normocephalic ENT exam: Present: other (There is white cotton impacted in the left ear canal) Respiratory exam: Absent: respiratory distress Neurological exam: Present: alert, oriented X3 Psychiatric exam: Present: normal affect Skin exam: Present: warm, dry Course Vital Signs 05/20/23 00:39 Temperature 98 F Pulse Rate 82 Respiratory 18 Rate Blood Pressure 144/71 O2 Sat by Pulse 97 Oximetry Procedures - Foreign Body Removal Ear Location: ear canal (L) Foreign Body Suspected: other (Hot) Foreign Body Removed: yes Foreign Body Removal Technique: instrumentation Tympanic Membrane Intact: Yes Patient Tolerated Procedure: well Complications: none Medical Decision Making - Medical Decision Making Was pt. sent in by a medical professional or institution (SYLVESTER Saucedo, SALES OPERATIONS ASSOCIATE, urgent care, hospital, or long-term...) When possible be specific @ -No Did you speak to anyone other than the patient for history (EMS, parent, family, police, friend...)? What history was obtained from this source @ -No Did you review nursing and triage notes (agree or disagree)? Why? @ -I reviewed and agree with nursing and triage notes Were old charts reviewed (outside hosp., previous admission, EMS record, old EKG, old radiological studies, urgent care reports/EKG's, long-term records)? Report findings @ -No old charts were reviewed Differential Diagnosis (chest pain, altered mental status, abdominal pain women, abdominal pain men, vaginal bleeding, weakness, fever, dyspnea, syncope, headache, dizziness, GI bleed, back pain, seizure, CVA, palpatations, mental health, musculoskeletal)? @ -not applicable EKG interpreted by me (3pts min.). @ -As above X-rays interpreted by me (1pt min.). @ -None done CT interpreted by me (1pt min.). @ -None done U/S interpreted by me (1pt. min.). @ -None done What testing was considered but not performed or refused? (CT, X-rays, U/S, labs)? Why? @ -None What meds were considered but not given or refused? Why? @ -None Did you discuss the management of the patient with other professionals (professionals i.e. SYLVESTER Saucedo, SALES OPERATIONS ASSOCIATE, lab, RT, psych nurse, director social, leach tank tender, teacher, aoc operations intelligence officer, supportive employment case manager)? Give summary @ -No Was smoking cessation discussed for >3mins.? @ -No Was critical care preformed (if so, how long)? @ -No Were there social determinants of health that impacted care today? How? (Homelessness, low income, unemployed, alcoholism, drug addiction, transportation, low edu. Level, literacy, decrease access to med. care, fci, rehab)? @ -No Was there de-escalation of care discussed even if they declined (Discuss DNR or withdrawal of care, Hospice)? DNR status @ -No What co-morbidities impacted this encounter? (DM, HTN, Smoking, COPD, CAD, Cancer, CVA, ARF, Chemo, Hep., AIDS, mental health diagnosis, sleep apnea, morbid obesity)? @ -None Was patient admitted / discharged? Hospital course, mention meds given and route, prescriptions, significant lab abnormalities, going to OR and other pertinent info. @ Discharge Undiagnosed new problem with uncertain prognosis? @ Foreign body left ear canal Drug Therapy requiring intensive monitoring for toxicity (Heparin, Nitro, Insulin, Cardizem)? @ -No Were any procedures done? @ -No Diagnosis/symptom? @ -default Acute, or Chronic, or Acute on Chronic? @ -default Uncomplicated (without systemic symptoms) or Complicated (systemic symptoms)? @ -default Side effects of treatment? @ -No Exacerbation, Progression, or Severe Exacerbation? @ -No Poses a threat to life or bodily function? How? (Chest pain, [place], [place], pneumonia, PE, COPD, DKA, ARF, appy, cholecystitis, CVA, Diverticulitis, Homicidal, Suicidal, threat to staff... and all critical care pts) @ -No Disposition Clinical Impression: Foreign body in ear Disposition: HOME SELF-CARE Condition: Stable Is patient prescribed a controlled substance at d/c from ED?: No Referrals: Britton Guido MD [Primary Care Provider] - 1-2 days
== END 2023-05-20 01:24 | disposition home or self-care (01) ==
LOC: EC 00:32
DX: T16.2XXA Foreign body in left ear, initial encounter (principal); J44.9 Chronic obstructive pulmonary disease, unspecified; E11.9 Type 2 diabetes mellitus without complications; I10 Essential (primary) hypertension; I25.2 Old myocardial infarction; F17.200 Nicotine dependence, unspecified, uncomplicated; F12.90 Cannabis use, unspecified, uncomplicated; Z86.73 Personal history of transient ischemic attack (TIA), and cerebral infarction without residual deficits; Z86.59 Personal history of other mental and behavioral disorders; Z79.4 Long term (current) use of insulin; Z79.899 Other long term (current) drug therapy; Z91.041 Radiographic dye allergy status; Z88.5 Allergy status to narcotic agent; Z88.8 Allergy status to other drugs, medicaments and biological substances; Z79.82 Long term (current) use of aspirin; Z88.6 Allergy status to analgesic agent; Z90.49 Acquired absence of other specified parts of digestive tract
CPT/HCPCS: 69000; 69200; 99282

== ENCOUNTER → 2024-04-14 | Outpatient (CLI) | payer MEDICARE ==
--- NOTE | 2024-04-14 11:42 | XR ---
EXAMINATION TYPE: XR shoulder complete 3 views BILAT, XR Hip 2 views Bilateral and AP pelvis DATE OF EXAM: 04/14/2024 COMPARISON: NONE HISTORY: 68-year-old male M2 5.519, M2 5.551, M2 5.552 FINDINGS: Shoulders: COMPUTER SECURITY MANAGER shunt catheter noted tracking down the right chest wall. There is moderate degenerative joint spac e narrowing and sclerosis at the bilateral AC joints. Slight irregularity at the bilateral greater tu berosities. Subacromial space is preserved on both sides. No acute fracture, subluxation, or dislocat ion. Pelvis and hips: Status post L4-L5 posterior and interbody fusion. There may be some mild degenerative subarticular sc lerosis at the left SI joint. Pubic symphysis is intact. There is mild degenerative spurring at both hips with relative preservation of hip joint space. No acute fracture, subluxation, dislocation. IMPRESSION: Shoulders: 1. Moderate AC joint OA. 2. Mild bony changes suggesting chronic rotator cuff tendinopathy. 3. No acute osseous abnormality seen on either side. Pelvis and hips: 4. Mild bilateral hip OA. 5. There may be mild degenerative change at the left SI joint. 6. Status post L4-L5 posterior and interbody fusion. 7. No acute osseous abnormality seen.
[2024-04-14 15:16] LABS: Basophils # (A) 0.17 X 10*3/uL (0.00-0.10); Basophils % (A) 1.4 %; Eosinophils # (A) 0.34 X 10*3/uL (0.04-0.35); Eosinophils % (A) 2.8 %; HCT 47.6 % (39.6-50.0); HGB 15.8 g/dL (13.0-17.0); Lymphocytes # (A) 1.82 X 10*3/uL (0.90-5.00); Lymphocytes % (A) 15.1 %; MCH 30.9 pg (27.0-32.0); MCHC 33.2 g/dL (32.0-37.0); MCV 93.2 FL (80.0-97.0); Mean Platelet Volume 10.7 FL (9.5-12.2); Monocytes # (A) 0.91 X 10*3/uL (0.20-1.00); Monocytes % (A) 7.6 %; NRBC Per 100 WBC 0 X 10*3/uL (0.00-0.01); Neutrophils # (A) 8.64 X 10*3/uL (1.80-7.70); Neutrophils % (A) 71.9 %; Platelet Count 197 X 10*3/uL (140-440); RBC 5.11 X 10*6/uL (4.40-5.60); RDW 13.2 % (11.5-14.5); WBC 12.03 X 10*3/uL (4.50-10.00)
[2024-04-14 19:32] LABS: ALT 26 U/L (10-49); AST 14 U/L (14-35); Alkaline Phosphatase 112 U/L (41-126); BUN/Creat Ratio 19.55 Ratio (12.00-20.00); Blood Urea Nitrogen 21.5 mg/dL (9.0-27.0); Calcium 9.1 mg/dL (8.7-10.3); Carbon Dioxide 21.6 mmol/L (21.6-31.8); Chloride 106 mmol/L (96-109); Chol/HDL Ratio 3.68 Ratio; Globulin 2.1 g/dL (1.6-3.3); Glucose 187 mg/dL (70-110); LDL Cholesterol,Calculated 102.6 mg/dL (0.0-131.0); Potassium 4.8 mmol/L (3.5-5.5); Sodium 140 mmol/L (135-145); Total Bilirubin 0.5 mg/dL (0.3-1.2); Total Protein 6.1 g/dL (6.2-8.2); VLDL Calculation 12.48 mg/dL (5.00-40.00)
== END | disposition home or self-care (01) ==
LOC: RADXRMAIN 09:47
PROVIDERS: ATTEND Internal Medicine
DX: M16.0 Bilateral primary osteoarthritis of hip (principal); M19.019 Primary osteoarthritis, unspecified shoulder; M67.819 Other specified disorders of synovium and tendon, unspecified shoulder; I10 Essential (primary) hypertension; E11.9 Type 2 diabetes mellitus without complications
CPT/HCPCS: 73521; 80053; 80061; 83036; 84443; 85025